=== PATIENT | male | born 1965 | race Caucasian/White ===

== ENCOUNTER → 2020-09-25 15:39 | Outpatient (BNVA) | payer OTHER, SELFPAY | PROVIDERS: PCP Internal Medicine; Referring Provider Internal Medicine; Visit Provider Internal Medicine | DX: E11.65 Type 2 diabetes mellitus with hyperglycemia (principal); Z79.4 Long term (current) use of insulin; E55.9 Vitamin D deficiency, unspecified; I10 Essential (primary) hypertension; E78.5 Hyperlipidemia, unspecified; Z79.899 Other long term (current) drug therapy | CPT/HCPCS: 99202 ==

== ENCOUNTER → 2020-09-25 15:39 | Outpatient (BNVA) | payer OTHER, SELFPAY | PROVIDERS: PCP Internal Medicine; Referring Provider Internal Medicine; Visit Provider Internal Medicine | DX: E11.65 Type 2 diabetes mellitus with hyperglycemia (principal); E55.9 Vitamin D deficiency, unspecified; I10 Essential (primary) hypertension; E78.5 Hyperlipidemia, unspecified; Z79.4 Long term (current) use of insulin; Z79.899 Other long term (current) drug therapy ==

== ENCOUNTER 2020-10-24 12:31 | Outpatient (REF) | payer OTHER, SELFPAY | END 2020-10-24 12:32 | disposition home or self-care (01) | LOC: HO.LAB 12:31 | PROVIDERS: Visit Provider Internal Medicine | DX: Z20.828 Contact with and (suspected) exposure to other viral communicable diseases (principal) | CPT/HCPCS: C9803; U0003 ==

== ENCOUNTER → 2020-11-17 13:59 | Outpatient (BNVA) | payer OTHER, SELFPAY | PROVIDERS: PCP Internal Medicine; Visit Provider Dietitian, Registered | DX: Z76.89 Persons encountering health services in other specified circumstances (principal) ==

== ENCOUNTER → 2020-12-22 11:50 | Outpatient (BNVA) | payer OTHER, SELFPAY | PROVIDERS: PCP Internal Medicine; Referring Provider Internal Medicine; Visit Provider Internal Medicine ==

== ENCOUNTER 2021-01-30 13:49 | Outpatient (REF) | payer OTHER, SELFPAY ==
--- NOTE | ~2021-01-30 | XR_ITS ---
EXAMINATION: XR KNEE, RIGHT XR KNEE, LEFT CLINICAL INFORMATION: Pain in both knees COMPARISON: None TECHNIQUE: 4 views of the right and left knees FINDINGS: Right Knee: Small joint effusion. Small marginal osteophytes about the medial compartment and patellofemoral compartment without joint space narrowing indicative of mild arthrosis. Lateral compartment normal. Prominent arterial calcification. Left Knee: Small marginal osteophytes about the patellofemoral compartment without joint space narrowing indicative of mild arthrosis. Medial and lateral compartments normal. No effusion. Prominent arterial calcification. XR/XR knee LT 4V IMPRESSION: Right Knee: Small joint effusion and mild osteoarthritis. Left Knee: Mild osteoarthritis. Calcific atherosclerotic disease bilaterally.
--- NOTE | ~2021-01-30 | XR_ITS ---
EXAMINATION: XR KNEE, RIGHT XR KNEE, LEFT CLINICAL INFORMATION: Pain in both knees COMPARISON: None TECHNIQUE: 4 views of the right and left knees FINDINGS: Right Knee: Small joint effusion. Small marginal osteophytes about the medial compartment and patellofemoral compartment without joint space narrowing indicative of mild arthrosis. Lateral compartment normal. Prominent arterial calcification. Left Knee: Small marginal osteophytes about the patellofemoral compartment without joint space narrowing indicative of mild arthrosis. Medial and lateral compartments normal. No effusion. Prominent arterial calcification. XR/XR knee RT 4V IMPRESSION: Right Knee: Small joint effusion and mild osteoarthritis. Left Knee: Mild osteoarthritis. Calcific atherosclerotic disease bilaterally.
== END 2021-01-30 13:50 | disposition home or self-care (01) ==
LOC: HO.XRAY 13:49
PROVIDERS: PCP Internal Medicine; Visit Provider Internal Medicine
DX: M25.561 Pain in right knee (principal); M25.562 Pain in left knee
CPT/HCPCS: 73564

== ENCOUNTER → 2021-02-19 13:37 | Outpatient (BNVA) | payer OTHER, SELFPAY | PROVIDERS: PCP Internal Medicine; Visit Provider Surgery Vascular Surgery | DX: I73.9 Peripheral vascular disease, unspecified (principal) | CPT/HCPCS: 99202 ==

== ENCOUNTER → 2021-03-20 12:09 | Outpatient (BNVA) | payer OTHER, SELFPAY | PROVIDERS: PCP Internal Medicine; Visit Provider Physician Assistant | DX: M17.0 Bilateral primary osteoarthritis of knee (principal) | CPT/HCPCS: 20610; 99202; J1020 ==

== ENCOUNTER 2021-08-25 14:32 | Emergency (ER) | payer OTHER, SELFPAY ==
[2021-08-25 15:29] VITALS: BP 109/67; PULSE 102; RESP 18; TEMP 36.8; O2SAT 98; BMI 22.8
== END 2021-08-25 20:14 | disposition left against medical advice (07) ==
PROVIDERS: Emergency Provider Emergency Medicine; PCP Internal Medicine
DX: K59.00 Constipation, unspecified (principal); R10.9 Unspecified abdominal pain; Z79.899 Other long term (current) drug therapy
CPT/HCPCS: 99281

== ENCOUNTER → 2021-08-26 14:47 | Outpatient (BNVA) | payer OTHER, SELFPAY | PROVIDERS: PCP Internal Medicine; Visit Provider Anesthesiology | DX: E11.65 Type 2 diabetes mellitus with hyperglycemia (principal); E11.42 Type 2 diabetes mellitus with diabetic polyneuropathy; G89.4 Chronic pain syndrome; Z79.4 Long term (current) use of insulin | CPT/HCPCS: 99202 ==

== ENCOUNTER → 2021-11-09 14:15 | Outpatient (BNVA) | payer OTHER, SELFPAY | PROVIDERS: PCP Internal Medicine; Visit Provider Anesthesiology | DX: E11.65 Type 2 diabetes mellitus with hyperglycemia (principal); E11.42 Type 2 diabetes mellitus with diabetic polyneuropathy; G89.4 Chronic pain syndrome; Z79.4 Long term (current) use of insulin | CPT/HCPCS: Q3014 ==

== ENCOUNTER 2023-01-31 03:33 | Inpatient (IN) | payer OTHER, SELFPAY ==
[2023-01-31] VITALS (20 sets, daily range): BP systolic 140–205; BP diastolic 68–108; PULSE 89–107; RESP 14–27; TEMP 36.3–37.4; O2SAT 93–100; BMI 25.3
--- NOTE | ~2023-01-31 | XR_ITS ---
EXAMINATION: XR CHEST CLINICAL INFORMATION: Question CHF COMPARISON: 07/10/2018 TECHNIQUE: Frontal view of the chest was obtained. FINDINGS: Cardiac leads overlie the chest. The lungs are well expanded. There is mild interstitial prominence with peribronchial cuffing. Carlos B-lines noted. No pleural effusion or pneumothorax. The cardiomediastinal silhouette is normal in size. XR/XR chest 1V IMPRESSION: Mild interstitial prominence with peribronchial cuffing and Carlos B-lines are suggestive of mild edema.
--- NOTE | ~2023-01-31 | CT_ITS ---
PROCEDURE: CT GUIDED BIOPSY, KIDNEY CLINICAL INFORMATION: Acute kidney injury. COMPARISON: None available. TECHNIQUE: Following explaining CT-guided kidney core biopsy procedure, benefits and risk, a written consent was obtained from the patient. Patient was placed prone on CT fluoroscopy table and preliminary CT imaging was obtained through the mid abdomen. Based on CT images the right kidney was to be biopsied. Markers were placed along the lower pole of the right kidney and repeat CT imaging was performed. An optimal marker was selected and marked on the skin. The area was cleaned and draped in usual sterile manner with 2% chlorhexidine solution. 1% lidocaine was injected at puncture site. Through a small incision an 18-gauge guide needle was advanced from the skin to the posterior cortex lower pole right kidney. Coaxially an 18-gauge biopsy gun was administered and 4-pass core biopsy were obtained. Sample collected was sent to lab for testing. Repeat CT imaging revealed no evidence of hemorrhage. Hemostasis was achieved at puncture site with pressure dressing applied. Patient tolerated procedure extremely well. Conscious sedation was administered for 15 minutes and patient monitored by radiologist and the IR nursing. This CT examination was performed using dose optimization techniques as appropriate, variously including the following: *Automated exposure control *Adjustment of mA and/or kV according to patient size (this includes techniques or standardized protocols for targeted exams where dose is matched to indication/reason for exam; i.e. extremities or head) *Use of iterative reconstruction technique DLP: 193 mGy-cm FINDINGS: On previous CT imaging of both kidneys are symmetrical and unremarkable. No radiopaque renal calculi seen on the visualized images. Successful CT fluoroscopy-guided right renal core biopsy was performed coaxially. CT/CT biopsy renal RT IMPRESSION: Successful CT fluoroscopy-guided right renal core biopsy performed.
--- NOTE | ~2023-01-31 | XR_ITS ---
EXAMINATION: XR CHEST CLINICAL INFORMATION: Tachycardia COMPARISON: 01/31/2023 TECHNIQUE: Frontal view of the chest was obtained. FINDINGS: Again seen is mild cardiomegaly increased interstitial markings. There is slight increased patchy density at the left base with new obscuration of the hemidiaphragm which may represent superimposed left consolidation. No large pleural effusions are seen. Again noted is an old healed right clavicular fracture healed right rib fractures. XR/XR chest 1V IMPRESSION: Mild cardiomegaly with increased interstitial markings suggestive of continued CHF with superimposed new left lower lobe infiltrate.
--- NOTE | ~2023-01-31 | NM_ITS ---
EXAMINATION: PULMONARY PERFUSION STUDY CLINICAL INFORMATION: Elevated d-dimer, question pulmonary embolism. COMPARISON: No previous lung scan is available for comparison. A radiograph of the chest dated 01/31/2023 is available for comparison. TECHNIQUE: Following the intravenous injection of 4 mCi Tc-99m MAA, the lungs were imaged in the anterior and posterior, left and right lateral and [place], [place], and [place] projections using a gamma scintillation camera. FINDINGS: No segmental perfusion defects are present. There is homogeneous distribution of activity bilaterally. There are no focal anatomic appearing perfusion defects present. NM/NM pul perfusion IMPRESSION: Normal radionuclide lung perfusion scan.
--- NOTE | 2023-01-31 03:50 | ED_ITS ---
HPI - General Adult General Chief complaint: General Medical Stated complaint: SWOLEN TESTICLES PER EMS Time Seen by Provider: 01/31/23 03:39 Source: patient and EMS Mode of arrival: EMS Limitations: no limitations History of Present Illness HPI narrative: Patient comes to the emergency room complaining of scrotal swelling. Patient states that he has chronic lower extremity edema, but tonight, when he woke up, he noticed that his scrotum was very swollen. Patient states that he does not have testicular pain, but the skin hurts from stretching so much. Patient denies chest pain or shortness of breath. Patient does not take any diuretic medications at home. Related Data Home Medications Medication Instructions Recorded Confirmed atorvastatin 80 mg tablet 80 mg PO DAILY 09/25/20 12/22/20 dulaglutide 1.5 mg/0.5 mL 1.5 mg subcut QWEEK 09/25/20 12/22/20 subcutaneous pen injector (Trulicity) lisinopril 20 mg tablet 20 mg PO DAILY 09/25/20 12/22/20 metformin 1,000 mg tablet 1,000 mg PO BID 09/25/20 12/22/20 pioglitazone 30 mg tablet 30 mg PO DAILY 09/25/20 12/22/20 insulin glargine 100 unit/mL (3 31 unit subcut QAM 12/22/20 12/22/20 mL) subcutaneous pen (Lantus Solostar U-100 Insulin) insulin lispro 100 unit/mL See Rx Instructions subcut TID 12/22/20 12/22/20 subcutaneous pen (Humalog KwikPen (U-100) Insulin) Previous Rx's Medication Instructions Recorded tamsulosin 0.4 mg capsule 0.4 mg PO BEDTIME #90 caps 09/18/20 pregabalin 75 mg capsule 75 mg PO BID 30 days #60 caps 11/09/21 Allergies Allergy/AdvReac Type Severity Reaction Status Date / Time No Known Allergies Allergy Verified 11/09/21 14:16 [No Known Allergies*] Review of Systems Review of Systems: Constitutional : No Weight loss, No Fever, No Chills, No Night Sweats, No Fatigue, No Malaise ENT/Mouth : No Hearing loss, No Ear Pain, No Nasal Congestion, No Sinus Pain, No Hoarseness, No sore throat, No Rhinorrhea, No Swallowing Difficulty Eyes: No Eye Pain, No Swelling, No Redness, No Foreign Body, No Discharge, No Vision Changes Cardiovascular : No Chest Pain, No SOB, No Dyspnea on Exertion, No Orthopnea, no Palpitations, complaining of worsening lower extremity edema and scrotal edema Respiratory : No Cough, No Sputum, No Wheezing, No Smoke Exposure, No Dyspnea Gastrointestinal : No Nausea, No Vomiting, No Diarrhea, No Constipation, No abdominal Pain, No Hematochezia, No Melena Genitourinary : no irregular bleeding, No Dysuria, No Urinary Frequency, No Hematuria, No Urinary Incontinence, No Urgency, No Flank Pain, No Urinary Flow Changes, No Hesitancy Musculoskeletal : No joint pain, No Myalgias, No Joint Swelling Skin : No Skin Lesions, No rash Neuro : No Weakness, No Numbness, No Paresthesias, No Loss of Consciousness, No Dizziness, No Headache Psych : No Anxiety/Panic, No Depression, No SI/HI/AH/VH, No Social Issues, Heme/Lymph: No Bruising, No Bleeding,No Lymphadenopathy Endocrine : No Polyuria, No Polydipsia, No Temperature Intolerance PMFSH Past Medical History Medical History Chronic pain syndrome Depression Diabetic polyneuropathy HLD (hyperlipidemia) HTN (hypertension) T2DM (type 2 diabetes mellitus) Vitamin D deficiency Surgical History Hx of colonoscopy Hx of rotator cuff surgery Family History Family History Father Colon cancer Mother History of kidney problems T2DM (type 2 diabetes mellitus) Sister T2DM (type 2 diabetes mellitus) Social History Social History (Updated 03/20/21 @ 12:32 by Lucy Maya, [facility]) Alcohol intake: never Smoked in Last 30 Days: No Use of substances other than those prescribed or required for medical reasons: No Advance Directives: No Advance Directives Information Provided: Yes Current occupational status: disabled Current occupation: right handed Physical Exam ED Vital Signs: Vital Signs - 24 hr 01/31/23 04:19 01/31/23 04:15 01/31/23 05:50 Temperature 98.3 F 98.3 F 98.3 F Pulse Rate 103 H 107 H 94 Respiratory Rate 25 H 24 H 19 Blood Pressure 193/93 H 205/102 H 192/100 H Pulse Oximetry 98 98 93 Oxygen Delivery Method Room Air Room Air Room Air BMI result Body Mass Index 25.3 Const Other: Appearance: Alert. Oriented X3. No acute distress. Eyes: Pupils equal, round and reactive to light. ENT: Pharynx normal. Neck: Normal inspection. Neck supple. No lymph nodes noted. No crepitus CVS: Normal heart rate and rhythm. Pulses normal. Normal S1 and S2 Respiratory: No respiratory distress. Breath sounds normal. No Wheezing. No rales : Edematous penis and scrotum, no pain to palpation in either testicle Abdomen: Soft and nontender. No rigidity. No distention. Skin: Skin warm and dry. Normal skin color. Normal skin turgor. Extremities: No lower extremity edema. No Lacerations. No Rash Neuro: Oriented X 3. No motor deficit. No sensory deficit. Moving all extremities. No slurred speech. CN 2 through 12 grossly intact Psych: calm, cooperative, normal affect Course Course Course Narrative: -patient likely has venous insufficiency. Basic labs pending. -no testicular pain, testicular torsion of suspected -patient also has +3 pitting edema in lower extremities. Patient being giving Lasix. -BNP and chest x-ray pending. Medications Administered Discontinued Medications Generic Name Dose Route Start Last Admin Trade Name Freq PRN Reason Stop Dose Admin Furosemide 40 mg 01/31/23 03:47 01/31/23 04:31 Furosemide 40 Mg/4 Ml Vial IVPUSH 01/31/23 03:48 Not Given ONCE ONE Protocol Furosemide 60 mg 01/31/23 04:30 01/31/23 04:33 Furosemide 100 Mg/10 Ml Vial IVPUSH 01/31/23 04:31 60 mg ONCE ONE Administration Protocol Labetalol HCl 10 mg 01/31/23 05:42 01/31/23 05:55 Labetalol Hcl 100 Mg/20 Ml Vial IVPUSH 01/31/23 05:43 10 mg ONCE ONE Administration Oxycodone HCl 5 mg 01/31/23 05:41 01/31/23 05:55 Oxycodone Hcl Immed Release 5 Mg Tablet PO 01/31/23 05:42 5 mg ONCE ONE Administration Medical Decision Making Medical Decision Making MDM Narrative: -patient has severe hypertension, large amount of protein in the urine, gera sarca, new onset anemia, low albumin. Patient likely has nephrotic syndrome. -patient's blood pressure 205/102, given 60 mg of Lasix, patient now also getting 10 mg of IV labetalol. -patient agreeable to blood transfusion. Patient signed a consent. Patient states that he has been fatigued and short of breath with exertion -patient agreeable to stay for further treatment. Patient can not walk due to scrotal pain. -patient was given 10 mg of IV labetalol, blood pressure now 160/79 systolic. P atient does not have any chest pain or shortness of breath. Differential Diagnosis Differential Diagnoses: The differential diagnosis associated with the presentation includes (Nephritis syndrome, hypertensive urgency, anasarca, anemia) Admission/Observation Consideration of admission/observation: Escalation of care including admission/observation considered Consult Healthcare Provider Management of the patient was discussed with: Hospitalist Lab Data MDM Lab Attestation statement: I reviewed the patient's lab results. 01/31/23 03:58 01/31/23 03:58 Labs: Lab Results 01/31/23 01/31/23 01/31/23 Range/Units 03:58 03:58 03:58 WBC 13.0 H (4.8-10.8) X10*3/uL RBC 3.23 L (4.60-5.80) X10*6/uL Hgb 7.3 L (14.0-18.0) g/dl Hct 23.6 L (42.0-52.0) % MCV 73.1 L (80.0-98.0) fL MCH 22.6 L (27.0-33.0) pg MCHC 30.9 L (31.0-36.0) g/dl RDW 18.3 H (11.0-16.0) % Plt Count 296 (160-400) X10*3/uL MPV 9.5 (9.4-12.4) fL Immature Gran % (Auto) 0.8 H (0.0-0.4) % Neut % (Auto) 76.8 H (45-73) % Lymph % (Auto) 16.2 L (20-40) % Addison % (Auto) 4.7 (2-11) % Eos % (Auto) 1.0 (0-4) % Baso % (Auto) 0.5 (0-2) % Lymph # (Auto) 2.1 (1.2-4.9) X10*3/uL Addison # (Auto) 0.6 (0.1-1.2) X10*3/uL Eos # (Auto) 0.1 (0.0-0.4) X10*3/uL Baso # (Auto) 0.1 (0.0-0.2) X10*3/uL Abs Immat Gran (auto) 0.10 H (0.00-0.03) X10*3/uL Absolute Neuts (auto) 10.0 H (2.0-8.3) x10*3/uL Absolute Nucleated RBC 0.000 (0.0-0.012) X10*3/uL Nucleated RBC % (auto) 0.0 (0.0-0.2) /100WBC Sodium 143 (135-145) mmol/L Potassium 3.5 (3.3-5.1) mmol/L Chloride 109 H (96-108) mmol/L Carbon Dioxide 28 (22-29) mmol/L Anion Gap 10 L (12-20) BUN 14 (9-16) mg/dL Creatinine 1.11 (0.5-1.4) mg/dL Estim Creat Clear Calc TNP Estimated GFR > 60 Random Glucose 117 H (60-115) mg/dL Calcium 7.2 L (8.4-10.2) mg/dL Total Bilirubin 0.2 (0.0-1.0) mg/dL Direct Bilirubin < 0.2 (0.0-0.5) mg/dL AST 17 (5-37) U/L ALT 9 (0-40) U/L Alkaline Phosphatase 95 (39-117) U/L Troponin I High Sens 17.5 (<3.5-35.0) ng/L B-Natriuretic Peptide (<100) pg/mL Total Protein 5.7 L (6.5-8.0) g/dL Albumin 1.9 L (3.5-5.0) g/dL Urine Color Urine Appearance Urine pH (5.0-9.0) Ur Specific [place] (1.005-1.025) Urine Protein (Neg-Trace) mg/dL Urine Glucose (UA) (Negative) mg/dL Urine Ketones (Negative) mg/dL Urine Blood (Negative) Urine Nitrite (Negative) Ur Leukocyte Esterase (Negative) Urine RBC (0-2) /HPF Urine WBC (0-5) /HPF Ur Squamous Epith Cells (0-2) /HPF Urine Bacteria (None Seen) Hyaline Casts (0-2) /LPF Stool Occult Blood (NEGATIVE) Blood Type Antibody Screen Crossmatch 01/31/23 01/31/23 01/31/23 Range/Units 03:58 04:42 04:42 WBC (4.8-10.8) X10*3/uL RBC (4.60-5.80) X10*6/uL Hgb (14.0-18.0) g/dl Hct (42.0-52.0) % MCV (80.0-98.0) fL MCH (27.0-33.0) pg MCHC (31.0-36.0) g/dl RDW (11.0-16.0) % Plt Count (160-400) X10*3/uL MPV (9.4-12.4) fL Immature Gran % (Auto) (0.0-0.4) % Neut % (Auto) (45-73) % Lymph % (Auto) (20-40) % Addison % (Auto) (2-11) % Eos % (Auto) (0-4) % Baso % (Auto) (0-2) % Lymph # (Auto) (1.2-4.9) X10*3/uL Addison # (Auto) (0.1-1.2) X10*3/uL Eos # (Auto) (0.0-0.4) X10*3/uL Baso # (Auto) (0.0-0.2) X10*3/uL Abs Immat Gran (auto) (0.00-0.03) X10*3/uL Absolute Neuts (auto) (2.0-8.3) x10*3/uL Absolute Nucleated RBC (0.0-0.012) X10*3/uL Nucleated RBC % (auto) (0.0-0.2) /100WBC Sodium (135-145) mmol/L Potassium (3.3-5.1) mmol/L Chloride (96-108) mmol/L Carbon Dioxide (22-29) mmol/L Anion Gap (12-20) BUN (9-16) mg/dL Creatinine (0.5-1.4) mg/dL Estim Creat Clear Calc Estimated GFR Random Glucose (60-115) mg/dL Calcium (8.4-10.2) mg/dL Total Bilirubin (0.0-1.0) mg/dL Direct Bilirubin (0.0-0.5) mg/dL AST (5-37) U/L ALT (0-40) U/L Alkaline Phosphatase (39-117) U/L Troponin I High Sens (<3.5-35.0) ng/L B-Natriuretic Peptide 429 H (<100) pg/mL Total Protein (6.5-8.0) g/dL Albumin (3.5-5.0) g/dL Urine Color Yellow Urine Appearance Clear Urine pH 7.5 (5.0-9.0) Ur Specific [place] 1.010 (1.005-1.025) Urine Protein >=1000 (4+) H (Neg-Trace) mg/dL Urine Glucose (UA) 250 H (Negative) mg/dL Urine Ketones Negative (Negative) mg/dL Urine Blood Moderate (2+) H (Negative) Urine Nitrite Negative (Negative) Ur Leukocyte Esterase Negative (Negative) Urine RBC 11-20 H (0-2) /HPF Urine WBC 0-5 (0-5) /HPF Ur Squamous Epith Cells 0-2 (0-2) /HPF Urine Bacteria None Seen (None Seen) Hyaline Casts 0-2 (0-2) /LPF Stool Occult Blood NEGATIVE (NEGATIVE) Blood Type Antibody Screen Crossmatch 01/31/23 Range/Units 05:04 WBC (4.8-10.8) X10*3/uL RBC (4.60-5.80) X10*6/uL Hgb (14.0-18.0) g/dl Hct (42.0-52.0) % MCV (80.0-98.0) fL MCH (27.0-33.0) pg MCHC (31.0-36.0) g/dl RDW (11.0-16.0) % Plt Count (160-400) X10*3/uL MPV (9.4-12.4) fL Immature Gran % (Auto) (0.0-0.4) % Neut % (Auto) (45-73) % Lymph % (Auto) (20-40) % Addison % (Auto) (2-11) % Eos % (Auto) (0-4) % Baso % (Auto) (0-2) % Lymph # (Auto) (1.2-4.9) X10*3/uL Addison # (Auto) (0.1-1.2) X10*3/uL Eos # (Auto) (0.0-0.4) X10*3/uL Baso # (Auto) (0.0-0.2) X10*3/uL Abs Immat Gran (auto) (0.00-0.03) X10*3/uL Absolute Neuts (auto) (2.0-8.3) x10*3/uL Absolute Nucleated RBC (0.0-0.012) X10*3/uL Nucleated RBC % (auto) (0.0-0.2) /100WBC Sodium (135-145) mmol/L Potassium (3.3-5.1) mmol/L Chloride (96-108) mmol/L Carbon Dioxide (22-29) mmol/L Anion Gap (12-20) BUN (9-16) mg/dL Creatinine (0.5-1.4) mg/dL Estim Creat Clear Calc Estimated GFR Random Glucose (60-115) mg/dL Calcium (8.4-10.2) mg/dL Total Bilirubin (0.0-1.0) mg/dL Direct Bilirubin (0.0-0.5) mg/dL AST (5-37) U/L ALT (0-40) U/L Alkaline Phosphatase (39-117) U/L Troponin I High Sens (<3.5-35.0) ng/L B-Natriuretic Peptide (<100) pg/mL Total Protein (6.5-8.0) g/dL Albumin (3.5-5.0) g/dL Urine Color Urine Appearance Urine pH (5.0-9.0) Ur Specific [place] (1.005-1.025) Urine Protein (Neg-Trace) mg/dL Urine Glucose (UA) (Negative) mg/dL Urine Ketones (Negative) mg/dL Urine Blood (Negative) Urine Nitrite (Negative) Ur Leukocyte Esterase (Negative) Urine RBC (0-2) /HPF Urine WBC (0-5) /HPF Ur Squamous Epith Cells (0-2) /HPF Urine Bacteria (None Seen) Hyaline Casts (0-2) /LPF Stool Occult Blood (NEGATIVE) Blood Type A Positive Antibody Screen NEGATIVE Crossmatch See Detail Critical Care Time Critical Care Time Critical Care Time: Yes Total Critical Care Time: 90 Attestation: I have personally provided critical care time. Time includes review of lab data, radiology results, discussion with consultants, and monitoring for potential decompensation. Intervention performed as documented. Discharge Plan Discharge Clinical Impression: Nephrotic syndrome, Hypertensive urgency, Anasarca, Anemia Patient Disposition: Admitted As Inpatient Prescriptions: No Action tamsulosin 0.4 mg capsule 0.4 mg PO BEDTIME Qty: 90 6RF metformin 1,000 mg tablet 1,000 mg PO BID pioglitazone 30 mg tablet 30 mg PO DAILY Trulicity 1.5 mg/0.5 mL pen injector 1.5 mg subcut QWEEK atorvastatin 80 mg tablet 80 mg PO DAILY lisinopril 20 mg tablet 20 mg PO DAILY Lantus Solostar U-100 Insulin 100 unit/mL (3 mL) insulin pen 31 unit subcut QAM insulin lispro [Humalog KwikPen Insulin] 100 unit/mL insulin pen See Rx Instructions subcut TID Rx Instructions: 13 Before meals subcut 3 times a day; pregabalin 75 mg capsule 75 mg PO BID 30 Days Qty: 60 5RF
--- NOTE | 2023-01-31 04:00 | PC.NURSE ---
pt c/o swollen painful testicles began today, states feeling burning sensation while voiding beginning 5 days ago, denies sexual activity, h/o htn, dmII, arthritis, med hx metformin, lisinopril pt resting quietly, while watchinf tv no apparent distress Dr Rouse aware of high BP furosemide to follow
[2023-01-31 04:13] LABS: Basophils Absolute Auto 0.1 X10*3/uL (0.0-0.2); Basophils Percent Auto 0.5 % (0-2); Eosinophils Absolute Auto 0.1 X10*3/uL (0.0-0.4); Hematocrit 23.6 % (42.0-52.0); Hemoglobin 7.3 g/dl (14.0-18.0); Imm Gran Pct Auto 0.8 % (0.0-0.4); Lymphocytes Absolute Auto 2.1 X10*3/uL (1.2-4.9); Lymphocytes Percent Auto 16.2 % (20-40); MANUAL DIFF FLAG NO; Mean Corpuscular HGB Conc 30.9 g/dl (31.0-36.0); Mean Corpuscular Hemoglobin 22.6 pg (27.0-33.0); Mean Corpuscular Volume 73.1 fL (80.0-98.0); Mean Platelet Volume 9.5 fL (9.4-12.4); Monocytes Absolute Auto 0.6 X10*3/uL (0.1-1.2); Monocytes Percent Auto 4.7 % (2-11); Neutrophils Percent Auto 76.8 % (45-73); Platelet Count 296 X10*3/uL (160-400); Red Blood Count 3.23 X10*6/uL (4.60-5.80); Red Cell Distribution Width 18.3 % (11.0-16.0)
--- NOTE | 2023-01-31 04:20 | PC.NURSE ---
present for rectal exam performed by Dr Rouse for OB card
[2023-01-31] MEDS: Furosemide 100 MG/10 ML VIAL 60 MG IVPUSH (04:33)
[2023-01-31 04:36] LABS: B Type Natriuretic Peptide 429 pg/mL (<100); Troponin-I High Sensitivity 17.5 ng/L (<3.5-35.0)
[2023-01-31 04:39] LABS: Alanine Aminotransferase 9 U/L (0-40); Albumin Level 1.9 g/dL (3.5-5.0); Alkaline Phosphatase 95 U/L (39-117); Anion Gap 10 (12-20); Aspartate Amino Transferase 17 U/L (5-37); Bilirubin Direct < 0.2 mg/dL (0.0-0.5); Bilirubin Total 0.2 mg/dL (0.0-1.0); Blood Urea Nitrogen 14 mg/dL (9-16); Calcium 7.2 mg/dL (8.4-10.2); Carbon Dioxide 28 mmol/L (22-29); Chloride 109 mmol/L (96-108); Estimated Glomerular Filt Rate > 60; Glucose Random 117 mg/dL (60-115); Potassium 3.5 mmol/L (3.3-5.1); Sodium 143 mmol/L (135-145); Total Protein 5.7 g/dL (6.5-8.0)
--- OUTSIDE RECORDS SUMMARY | 2023-01-31 04:46 | XMS_ITS | Continuity of Care Document ---
:1965 Author Organization [facility] Address [address] [place] [address]- Care Team Providers Name Role Phone Cecille York DO Primary Care Physician Encounter [facility] [place] Date(s): 09/30/21 - 10/30/[address] [id number] Attending Physician: Gordo Maria Admitting Physician: Gordo Maria Referring Physician: AdmtrGordo Allergies, Adverse Reactions, Alerts Substance Reaction Severity Status NKA Active Medications Actos 45 mg oral tablet 1 tablet = 45 mg, By Mouth, Daily, 0 Refills, Maintenance Start Date: 09/29/11 Status: OrderedAspir 81 Oral Enteric Coated Tablet 1 tablet = 81 mg, By Mouth, Daily, # 30 tablet, 0 Refills, Maintenance, 05/21/14 15:38:51, EC Tablet Start Date: 05/21/14 Status: Orderedclonazepam 2 mg oral tablet 1 tablet = 2 mg, By Mouth, 2 times a day, 0 Refills, Maintenance, 05/21/14 15:38:35, Tablet Start Date: 05/21/14 Status: OrderedColace sodium 100 mg oral capsule 1 capsule = 100 mg, By Mouth, 2 times a day, PRN for constipation, # 20 capsule, 0 Refills, Maintenance, 05/24/14 14:47:47, Capsule Start Date: 05/24/14 Status: Orderedgabapentin 100 mg oral capsule 2 capsule = 200 mg, By Mouth, 3 times a day, # 240 capsule, 0 Refills, Maintenance, 05/24/14 14:47:33, Capsule Start Date: 05/24/14 Status: Orderedibuprofen 600 mg oral tablet 1 tablet = 600 mg, By Mouth, 3 times a day, # 90 tablet, 0 Refills, Maintenance, 05/24/14 14:47:14 Start Date: 05/24/14 Status: Orderedmetformin 1000 mg oral tablet 1 tablet = 1,000 mg, By Mouth, 2 times a day, 0 Refills, Maintenance Start Date: 09/29/11 Status: Ordered
--- OUTSIDE RECORDS SUMMARY | 2023-01-31 04:46 | XMS_ITS | Continuity of Care Document ---
:1965 Author Organization [facility] Address [address] [place] [address]- Care Team Providers Name Role Phone Cecille York DO Primary Care Physician Encounter [place] Date(s): 06/24/22 - 10/13/22 [facility] [address] [place] [id number] Attending Physician: Tika Dickson MD Admitting Physician: Tika Dickson MD Referring Physician: Cecille York DO Allergies, Adverse Reactions, Alerts No Known Allergies Medications Actos 45 mg oral tablet 1 [...] 05/24/14 14:47:47, Capsule Start Date: 05/24/14 Status: OrderedFreestyle Lite Test Strips See Instructions, # 200 each, Tot. Refills 5, Maintenance, use as directed for Type 2 Diabetes Mellitus, 06/08/22 14:45:00 EDT, Supply, 160, cm, 06/08/22 14:02:00 EDT, Height Start Date: 06/08/22 Stop Date: 07/08/22 Status: Orderedgabapentin 100 mg oral capsule 2 capsule = 200 mg, By Mouth, 3 times a day, # 240 capsule, 0 Refills, Maintenance, 05/24/14 14:47:33, Capsule Start Date: 05/24/14 Status: Orderedibuprofen 600 mg oral tablet 1 tablet = 600 mg, By Mouth, 3 times a day, # 90 tablet, 0 Refills, Maintenance, 05/24/14 14:47:14 Start Date: 05/24/14 Status: OrderedLantus 100 u/ml subcutaneous solution = 50 units, Subcutaneous Injection, Daily, # 35 mL, 6 Refills, Maintenance, 06/08/22 14:45:00 EDT, Solution, [id number], Partial fill upon patient request if the prescription is for a schedule II opioid drug., 160, cm, 06/08/22 14:02:00 EDT, H... Start Date: 06/08/22 Status: Orderedmetformin 1000 mg oral tablet 1 tablet = 1,000 mg, By Mouth, 2 times a day, 0 Refills, Maintenance Start Date: 09/29/11 Status: OrderedNovoLOG FlexPen 100 units/mL subcutaneous solution See Instructions, Subcutaneous Injection, Use as directed for Diabetes mellitus type 2 three time a day before meals based on below scale. Blood sugar Novolog dose 100-149 take 10 units 150-199 take 12units 200-249 take 14 units... Start Date: 06/08/22 Stop Date: 02/28/24 Status: OrderedTrulicity Pen 3 mg/0.5 mL subcutaneous solution 0.5 mL = 3 mg, Subcutaneous Injection, Every week, rotate injection sites, # 2 mL, 6 Refills, Maintenance, 06/08/22 14:45:00 EDT, Solution, [id number], Partial fill upon patient request if the prescription is for a schedule II opioid drug., 16... Start Date: 06/08/22 Status: Ordered Patient Care team information Care Team PersonnelName: Cecille York DO Position: ELISHA RN Member Role: PCP Address: Address: [address] [place] [id number] Name: Janel Ochoa RN Position: ELISHA RN Member Role: Primary Care Nurse Care Team Related PersonsName: BERNARDO AVENDANO Address: home [address] [address] Name: MAYRA ALCALA Address: home [address] [place] [address]
--- OUTSIDE RECORDS SUMMARY | 2023-01-31 04:46 | XMS_ITS | Continuity of Care Document ---
:1965 Author Organization [facility] Address [address] [place] [address]- Care Team Providers Name Role Phone Cecille York DO Primary Care Phys[id number] Date[facility] - 07/15/[address] [id number] Attending Physician: Tika Dickson MD Admitting Physician: [...] drug., 16... Start Date: 06/08/22 Status: Ordered Care Team PersonnelName: Cecille York DO Address: [address] [place] [address], [address]
--- OUTSIDE RECORDS SUMMARY | 2023-01-31 04:47 | XMS_ITS | Continuity of Care Document ---
:1965 Author Organization [facility] Address [address] [place] [address]- Care Team Providers Name Role Phone Cecille York DO Primary Care Physician [place] [facility] [place](s): 06/15/22 - 07/15/[address] [id number] Attending Physician: Gordo Maria Admitting Physician: Gordo Maria Referring Physician: AdmtrGordo Allergies, Adverse Reactions, Alerts No Known Allergies [...] 6 Refills, Maintenance, 06/08/22 14:45:00 EDT, Solution, [id number], Partial fill upon patient request if [...] Care Team PersonnelName: Cecille York DO Address: [address] [place] [address], [address]
--- OUTSIDE RECORDS SUMMARY | 2023-01-31 04:47 | XMS_ITS | Continuity of Care Document ---
:1965 Author Organization [facility] Address [address] [place] [address]- Care Team Providers Name Role Phone Cecille York DO Primary Care Physician Encounter [facility] [place] Date(s): 09/13/22 - 10/13/22 [facility] [address] [place] [id number] Attending Physician: Gordo Maria Admitting Physician: Gordo [...] ELISHA RN Member Role: PCP Address: Address: [address] [place] [id number]- Name: Janel Ochoa RN Position: ELISHA RN Member Role: Primary Care Nurse Care Team Related PersonsName: BERNARDO AVENDANO Address: home [address] [address] Name: MAYRA ALCALA Address: home [address] [address]
[2023-01-31 04:49] LABS: OBS Int Ctl Valid YES; OBS1 NEGATIVE (NEGATIVE)
[2023-01-31 04:51] LABS: Appearance Urine Clear; Color Urine Yellow; Glucose Urine UA 250 mg/dL (Negative); Leukocyte Esterase Urine Negative (Negative); Nitrite Urine Negative (Negative); PH 7.5 (5.0-9.0); UMIC TRIGGER UACC YES; Urine Blood Moderate (2+) (Negative); Urine Ketones Negative (Negative); Urine Protein >=1000 (4+) mg/dL (Neg-Trace)
[2023-01-31 05:04] LABS: Bacteria Urine None Seen (None Seen); Hyaline Casts Urine 0-2 /LPF (0-2); Squamous Epithelial Cell Urine 0-2 /HPF (0-2); WBC Urine 0-5 /HPF (0-5)
[2023-01-31] MEDS: Labetalol HCL 100 MG/20 ML VIAL 10 MG IVPUSH ×2 (05:55→12:44)
[2023-01-31] MEDS: oxyCODONE HCl Immed Release 5 MG TABLET PO (05:55)
[2023-01-31 07:09] LABS: COVID-19 Test Negative (Negative); IDNOW Serial# 6674DD1D
[2023-01-31 08:04] LABS: Glucose, Whole Blood 96 mg/dL (60-115)
--- NOTE | 2023-01-31 11:02 | PM.IMHP ---
History of Present Illness Date of Service: 01/31/23 <Kenisha Crenshaw NP - Last Filed: 02/01/23 11:37> Attending physician on admission: Sherron Gomez <Kenisha Crenshaw NP - Last Filed: 02/01/23 11:37> Chief Complaint: Anasarca <Kenisha Crenshaw NP - Last Filed: 02/01/23 11:37> 57 year old man presenting with testicular and extremity swelling that started yesterday. He denied pain, fever, chills, SOB, chest pain, open wound or trauma. He reports that he wasnt able to sleep last night. 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 He lives alone but has some help at home. He reported compliance with all medications and is not on diuretics at home. His blood pressure was noted to be elevated and no fever, noted leukocytosis of 13.0, HH 7.3/23.6. CXR noted for interstitial prominence and Carlos B lines. He receieved IV lasix, oxycodone, Labetolol and amlodipine in the ED. He will be admitted for further management and treatment of anasarca. <Kenisha Crenshaw NP - Last Filed: 02/01/23 11:37> Review of Systems Review of Systems: Denies any recent fever chills or decrease in appetite respiratory denies any shortness of breath coverage production cardiovascular he denied chest pain, reported swelling gastrointestinal denies any dysphagia abdominal pain nausea vomiting or diarrhea genitourinary denies any dysuria frequency or hematuria musculoskeletal denies any joint pain or swelling neuropsych denies any weakness or seizures all other systems reviewed are negative <Kenisha Crenshaw NP - Last Filed: 02/01/23 11:37> [facility] Medical History: Medical History Chronic pain syndrome Depression Diabetic polyneuropathy HLD (hyperlipidemia) HTN (hypertension) T2DM (type 2 diabetes mellitus) Vitamin D deficiency <Kenisha Crenshaw NP - Last Filed: 02/01/23 11:37> Family History: Family History Father Colon cancer Mother History of kidney problems T2DM (type 2 diabetes mellitus) Sister T2DM (type 2 diabetes mellitus) <Kenisha Crenshaw NP - Last Filed: 02/01/23 11:37> Surgical History: Surgical History Hx of colonoscopy Hx of rotator cuff surgery <Kenisha Crenshaw NP - Last Filed: 02/01/23 11:37> Social History: Social History (Updated 03/20/21 @ 12:32 by Lucy Maya [facility]) Alcohol intake: never Patient Tobacco Use Status: Never used Tobacco Smoked in Last 30 Days: No Use of substances other than those prescribed or required for medical reasons: No Advance Directives: No Advance Directives Information Provided: Yes service: No Current occupational status: disabled Current occupation: right handed <Kenisha Crenshaw NP - Last Filed: 02/01/23 11:37> Meds Allergies/Adverse reactions: Allergies Allergy/AdvReac Type Severity Reaction Status Date / Time No Known Allergies Allergy Verified 11/09/21 14:16 [No Known Allergies*] <Kenisha Crenshaw NP - Last Filed: 02/01/23 11:37> Active Medications: Current Medications Pharmacy Consult (Consult Rx Perform Med Rec) 1 each MISCELLANE ONCE PRN PRN Reason: Consult order <Kenisha Crenshaw NP - Last Filed: 02/01/23 11:37> Home medications: Home Medications Medication Instructions Recorded Confirmed Last Taken Type dulaglutide 1.5 mg/0.5 mL 1.5 mg subcut WE@0900 09/25/20 01/31/23 01/26/23 History subcutaneous pen injector (Trulicity) metformin 1,000 mg tablet 1,000 mg PO BID 09/25/20 01/31/23 01/30/23 History insulin glargine 100 unit/mL (3 31 unit subcut DAILY 12/22/20 01/31/23 01/30/23 History mL) subcutaneous pen (Lantus Solostar U-100 Insulin) insulin lispro 100 unit/mL 12 unit subcut TIDAC 12/22/20 01/31/23 01/30/23 History subcutaneous pen (Humalog KwikPen (U-100) Insulin) benztropine 0.5 mg tablet 0.5 mg PO DAILY 01/31/23 01/31/23 01/30/23 History gabapentin 800 mg tablet 800 mg PO BID 01/31/23 01/31/23 01/30/23 History ketorolac 0.5 % eye drops 1 drp ophthalmic (eye) TID 01/31/23 01/31/23 Unknown History prednisolone acetate 1 % eye 1 drp ophthalmic (eye) TID 01/31/23 01/31/23 Unknown History drops,suspension ramelteon 8 mg tablet 8 mg PO BEDTIME PRN Sleep 01/31/23 01/31/23 Unknown History ziprasidone HCl 60 mg capsule 60 mg PO BID 01/31/23 01/31/23 01/30/23 History <Kenisha Crenshaw NP - Last Filed: 02/01/23 11:37> Physical Exam Vital Signs and Narrative: Vital Signs: Last Vital Signs Temp 98.5 F 01/31/23 09:40 Pulse 90 01/31/23 09:40 Resp 23 H 01/31/23 09:40 BP 193/108 H 01/31/23 09:40 Pulse Ox 94 01/31/23 09:40 O2 Del Method 01/31/23 09:40 BMI result Body Mass Index 25.3 <Kenisha Crenshaw NP - Last Filed: 02/01/23 11:37> Appearing in no acute distress head is normocephalic atraumatic eyes pupils are PERRLA sclera is anicteric mouth throat mucous membranes are intact and moist neck is supple no lymphadenopathy, no JVD noted lung sounds are clear to auscultation heart regular rate rhythm, clear S1, S2 positive bowel sounds, abdomen is soft, nontender neuro patient is alert x3, no focal deficits <Kenisha Crenshaw NP - Last Filed: 02/01/23 11:37> Results Labs CBC and Chem 7: 01/31/23 03:58 01/31/23 03:58 <Kenisha Crenshaw NP - Last Filed: 02/01/23 11:37> Labs: Laboratory Results - last 24 hr 01/31/23 01/31/23 01/31/23 03:58 03:58 03:58 MCV 73.1 L MCH 22.6 L MCHC 30.9 L RDW 18.3 H Plt Count 296 MPV 9.5 Immature Gran % (Auto) 0.8 H Neut % (Auto) 76.8 H Lymph % (Auto) 16.2 L [place] % (Auto) 4.7 Eos % (Auto) 1.0 Baso % (Auto) 0.5 Lymph # (Auto) 2.1 [place] # (Auto) 0.6 Eos # (Auto) 0.1 Baso # (Auto) 0.1 Abs Immat Gran (auto) 0.10 H Absolute Neuts (auto) 10.0 H Absolute Nucleated RBC 0.000 Nucleated RBC % (auto) 0.0 Anion Gap 10 L Estim Creat Clear Calc TNP Estimated GFR > 60 POC Glucose Random Glucose 117 H Calcium 7.2 L Total Bilirubin 0.2 Direct Bilirubin < 0.2 AST 17 ALT 9 Alkaline Phosphatase 95 Troponin I High Sens 17.5 B-Natriuretic Peptide Total Protein 5.7 L Albumin 1.9 L Urine Color Urine Appearance Urine pH Ur Specific [place] Urine Protein Urine Glucose (UA) Urine Ketones Urine Blood Urine Nitrite Ur Leukocyte Esterase Urine RBC Urine WBC Ur Squamous Epith Cells Urine Bacteria Hyaline Casts Stool Occult Blood COVID-19 (JJ) COVID-19 Bookmate Com Blood Type Antibody Screen Crossmatch 01/31/23 01/31/23 01/31/23 03:58 04:42 04:42 MCV MCH MCHC RDW Plt Count MPV Immature Gran % (Auto) Neut % (Auto) Lymph % (Auto) [place] % (Auto) Eos % (Auto) Baso % (Auto) Lymph # (Auto) [place] # (Auto) Eos # (Auto) Baso # (Auto) Abs Immat Gran (auto) Absolute Neuts (auto) Absolute Nucleated RBC Nucleated RBC % (auto) Anion Gap Estim Creat Clear Calc Estimated GFR POC Glucose Random Glucose Calcium Total Bilirubin Direct Bilirubin AST ALT Alkaline Phosphatase Troponin I High Sens B-Natriuretic Peptide 429 H Total Protein Albumin Urine Color Yellow Urine Appearance Clear Urine pH 7.5 Ur Specific [place] 1.010 Urine Protein >=1000 (4+) H Urine Glucose (UA) 250 H Urine Ketones Negative Urine Blood Moderate (2+) H Urine Nitrite Negative Ur Leukocyte Esterase Negative Urine RBC 11-20 H Urine WBC 0-5 Ur Squamous Epith Cells 0-2 Urine Bacteria None Seen Hyaline Casts 0-2 Stool Occult Blood NEGATIVE COVID-19 (JJ) COVID-19 Bookmate Com Blood Type Antibody Screen Crossmatch 01/31/23 01/31/23 01/31/23 05:04 06:48 08:01 MCV MCH MCHC RDW Plt Count MPV Immature Gran % (Auto) Neut % (Auto) Lymph % (Auto) [place] % (Auto) Eos % (Auto) Baso % (Auto) Lymph # (Auto) [place] # (Auto) Eos # (Auto) Baso # (Auto) Abs Immat Gran (auto) Absolute Neuts (auto) Absolute Nucleated RBC Nucleated RBC % (auto) Anion Gap Estim Creat Clear Calc Estimated GFR POC Glucose 96 Random Glucose Calcium Total Bilirubin Direct Bilirubin AST ALT Alkaline Phosphatase Troponin I High Sens B-Natriuretic Peptide Total Protein Albumin Urine Color Urine Appearance Urine pH Ur Specific [place] Urine Protein Urine Glucose (UA) Urine Ketones Urine Blood Urine Nitrite Ur Leukocyte Esterase Urine RBC Urine WBC Ur Squamous Epith Cells Urine Bacteria Hyaline Casts Stool Occult Blood COVID-19 (JJ) Negative COVID-19 Clin Com See Note Blood Type A Positive Antibody Screen NEGATIVE Crossmatch See Detail <Kenisha Crenshaw NP - Last Filed: 02/01/23 11:37> Assessment and Plan (1) Nephrotic syndrome: Status: Acute <Kenisha Crenshaw NP - Last Filed: 02/01/23 11:37> (2) Anasarca: Status: Acute <Kenisha Crenshaw NP - Last Filed: 02/01/23 11:37> 57 year old man admitted for anasarca likely from CHF and nephrotic syndrome CHF with anasarca, unspecified ? nephrotic syndrome, high urine protein, albumin 1.9, edema Lasix IV BID Nephro consult follow I&O closely ada and low na diet, ensure added echocardiogram Hypertension with elevated blood pressure reading amlodipine 5mg daily labetolol as needed for SBP >180 Anemia, unspecified type one unit PRBC lasix in between if needed follow HH post transfusion Diabetes type 2 ss, lantus, ada diet Diabetic neuropathy gabapentin PAD not on asa or statin moderate protein calorie malnutrition added ensure to diet DVT prophylaxis with heparin Attending Dr. Gomez full code Needs two inpatient midnights for tx of CHF requiring IV lasix <Kenisha Crenshaw NP - Last Filed: 02/01/23 11:37> 57 year old man admitted for anasarca likely from CHF and nephrotic syndrome CHF with anasarca, unspecified ? nephrotic syndrome, high urine protein, albumin 1.9, edema Lasix IV BID Nephro consult follow I&O closely ada and low na diet, ensure added echocardiogram Hypertension with elevated blood pressure reading amlodipine 5mg daily labetolol as needed for SBP >180 Anemia, unspecified type one unit PRBC lasix in between if needed follow HH post transfusion Diabetes type 2 ss, lantus, ada diet Diabetic neuropathy gabapentin PAD not on asa or statin moderate protein calorie malnutrition added ensure to diet DVT prophylaxis with heparin Attending Dr. Gomez full code Needs two inpatient midnights for tx of CHF requiring IV lasix Addendum to history and physical by the advanced practice provider, ANTONIO Crenshaw I interviewed and examined the patient. I discussed their presentation and management with the MARNI. I reviewed the history and physical and agree with the documentation, with the following additions and corrections: 57yo M with HTN, DM2, PAD presenting with diffuse swelling. Found to be anasarcic with hypoalbuminemia and proteinuria. Impression of nephrotic syndrome vs. CHF. Plan admit to [facility]MC, give IV furosemide, consult Nephrology, obtain TTE. ALso markedly anemic with Hb 7.3, FOBT negative, microcytic. Will transfuse 1u pRBCs and will need Fe repletion. <Sherron Gomez MD - Last Filed: 02/01/23 07:57> Time Spent With Patient Time: Total time managing care of this patient today ____ minutes. <Kenisha Crenshaw NP - Last Filed: 02/01/23 11:37> Quality Stroke Does the patient have a stroke diagnosis?: No <Sherron Gomez MD - Last Filed: 02/01/23 07:57> VTE Prior VTE?: No <Sherron Gomez MD - Last Filed: 02/01/23 07:57> VTE Risk Level:: Medical - moderate - high <Sherron Gomez MD - Last Filed: 02/01/23 07:57> VTE Device Contraindication: N/A - Device Ordered <Sherron Gomez MD - Last Filed: 02/01/23 07:57> VTE Drug Contraindication: N/A - Med Ordered <Sherron Gomez MD - Last Filed: 02/01/23 07:57>
[2023-01-31] MEDS: amLODIPine Besylate 5 MG TABLET PO (11:09)
[2023-01-31 11:31] LABS: Glucose, Whole Blood 161 mg/dL (60-115)
[2023-01-31] MEDS: Insulin Lispro 100 UNIT/ML 3 ML VIAL SUBCUT ×3 (12:04→21:41)
--- NOTE | 2023-01-31 12:04 | PHA.MEDREC ---
Pharmacy Consult ? Medication Reconciliation Pharmacy has completed the medication reconciliation. [employer] Assistant services used, pt does understand Kiswahili. Poor historian, able to confirm gabapentin and metformin, agreeable to most other meds. Confirmed lantus dose as 31 units and 12 units TIDAC for short acting insulin. Used claim history and pt info
[2023-01-31] MEDS: Heparin Sodium,Porcine 5,000 UNIT/ML VIAL 5000 UNIT SUBCUT ×2 (12:05→21:42)
[2023-01-31 15:50] LABS: Glucose, Whole Blood 215 mg/dL (60-115)
--- NOTE | 2023-01-31 15:54 | MHC.CM.PN ---
CM met with Patient at bedside and addressed IMM with him, providing him with the original and placing a copy on the chart. Patient lives alone in an apartment and he uses both a cane and a w/c to assist with mobility. Patient has a [employer] and home/resume said services is the goal. Patient has received Covid vax x3 and his PCP is Dr. Allison Ruelas/[facility].
[2023-01-31 17:14] LABS: D Dimer High Sensitivity 6180 NG/ML
[2023-01-31] MEDS: prednisoLONE Acetate 1 % Oph Susp 5 ML DRPBTL 1 DROP EYE-BOTH (17:32)
[2023-01-31] MEDS: Ketorolac Tromethamine 0.5% Op 5 ML DROPS 1 DROP EYE-BOTH (17:32)
[2023-01-31] MEDS: Furosemide 20 MG TABLET PO (19:36)
[2023-01-31 20:12] LABS: Glucose, Whole Blood 181 mg/dL (60-115)
[2023-01-31 20:23] LABS: Hematocrit 28.6 % (42.0-52.0); Hemoglobin 9.2 g/dl (14.0-18.0)
[2023-01-31 21:32] LABS: Cholesterol 253 mg/dL; HDL Cholesterol 66 mg/dL; LDL Cholesterol Calculated 163 mg/dl; Triglycerides 124 mg/dL
[2023-01-31] MEDS: LORazepam 0.5 MG TABLET 0.25 MG PO (21:40)
[2023-01-31] MEDS: Ziprasidone 60 MG CAPSULE PO (21:41)
[2023-01-31] MEDS: Gabapentin 400 MG CAPSULE 800 MG PO (21:41)
[2023-01-31 22:09] LABS: Hematocrit 32.3 % (42.0-52.0)
[2023-02-01 03:17] VITALS: BP 162/79; PULSE 100; RESP 20; TEMP 36.9; O2SAT 96
--- NOTE | 2023-02-01 07:00 | CA_ITS ---
Transthoracic Echocardiogram Patient (Last, First, Middle): Yao Rivera, Gender: Male Date of : 1965 Age: 57 Procedure Date: 02/01/2023 Procedure Type: Transthoracic Echocardiogram Location: [facility] Height: 160.02 cm Weight: 64.86 kg BSA: 1.68 m2 Heart Rate: 86 bpm BP: 169 / 85 mmHg [employer]inator [employer]: SB Referring MD: Kenisha Crenshaw NP Symptoms: CHF vs nephrotic syndrome Study Quality: Adequate ECG Rhythm: Sinus Conclusions: - Normal left ventricular cavity size. There is mildly increased left ventricular wall thickness. The left ventricular systolic function is low normal. The visually estimated ejection fraction is between 50-55%. - Elevated filling pressures. - Normal right ventricular cavity size and systolic function. - The left atrium is severely dilated. There is an interatrial septal aneurysm seen. The right atrium is normal in size. Findings Left Ventricle Normal left ventricular cavity size. There is mildly increased left ventricular wall thickness. The left ventricular systolic function is low normal. The visually estimated ejection fraction is between 50-55%. Abnormal diastolic function is noted. Spectral Doppler is indicative of a pseudonormal filling pattern. Elevated filling pressures. GLS reduced at 13%. Right Ventricle Normal right ventricular cavity size and systolic function. Atria The left atrium is severely dilated. There is an interatrial septal aneurysm seen. The right atrium is normal in size. Aortic Valve Normal aortic valve structure and function. There is mild calcification of the aortic valve. There is no aortic valve stenosis. There is no aortic valve regurgitation. Mitral Valve Normal mitral valve structure and function. There is no mitral valve regurgitation. There is no mitral valve stenosis. Pulmonic Valve Normal pulmonic valve structure and function. There is no pulmonic valve regurgitation. Tricuspid Valve Normal tricuspid valve structure and function. There is trace tricuspid valve regurgitation. Normal right atrial pressure. There is no evidence of pulmonary hypertension. Great Vessels All visible segments of the aorta are normal in size. The visualized portions of the pulmonary artery and branches are normal. Venous The inferior vena cava is normal in size and collapses greater than 50% with inspiration. Pericardium/Pleural Prominent epicardial adipose tissue noted. There is a trivial pericardial effusion. Measurements 2D Linear Measurements IVSd: 1.29 0.6-0.9/0.6-1.0 cm LVIDd: 3.88 3.9-5.3/4.2-5.9 cm LVIDd Index: 2.31 2.4-3.2/2.2-3.1 cm/m2 LVIDs: 2.63 2.0-3.6 cm LVPWd: 1.28 0.7-1.1 cm LA Diam: 4.10 2.7-3.8/3.0-4.0 cm LAIDs Index: 2.44 1.5-2.3 cm/m2 LV Mass: 218.32 67-162/88-224 g LV Mass Index: 129.95 43-95/49-115 g/m2 LVOT Diam: 2.30 3.0+(-)1.3 cm 2D Systolic Function EF 4C: 50.40 >55% EF 2C: 56.60 >55% EF BiP: 52.50 >55% Mitral Valve MV Pk E: 1.12 MV PK A: 0.66 MV Decel Time: 167.00 E/A: 1.70 E'Lateral: 6.74 E'Medial: 5.98 E/E' Med: 18.70 E/E' Lat: 16.60 PHT: 49.00 MVA PHT: 4.49 Decel [place]: 6.71 Aortic Valve AoV Pk [place]ato: 1.49 AoV Pk Grad: 9.00 MESSI: 2.79 LVOT LVOT Pk [place]ato: 0.97 LVOT Mn [place]: 0.72 LVOT VTI: 0.20 LVOT Pk Grad: 4.00 LVOT Mn Grad: 2.00 LVOT Diam: 2.30 LVOT Area: 4.15 Diastolic Function MV Pk E: 1.12 MV Pk A: 0.66 E/A: 1.70 E'Medial: 5.98 E/E' Med: 18.70 E' Laterial: 6.74 E/E' Lat: 16.60 Right Ventricle TAPSE (mm): 20.40 TVS' Nato: 16.30 Tricuspid Valve TR Pk [place]ato: 2.35 TR Pk Grad: 22.00 RA Press: 8.00 RVSP: 30.00 Great Vessels Aorta Sinus of Valsalva: 2.80 2.0-3.5 cm Ao Asc: 2.80 2.1-3.4 cm Pulmonary Veins Pulm Vein S/D 1.50 Pulmonary Valve PV Pk Nato: 1.05 Peak PV Grad: 4.00 Updated in Other Vendor System with Status of Final Rahat Connors MD electronically signed on 02/01/2023 5:26:41 PM with status of Final
[2023-02-01 07:19] VITALS: BP 169/85; PULSE 87; RESP 20; TEMP 36.9; O2SAT 97
[2023-02-01 07:26] LABS: Alanine Aminotransferase 9 U/L (0-40); Albumin Level 1.6 g/dL (3.5-5.0); Alkaline Phosphatase 74 U/L (39-117); Anion Gap 10 (12-20); Aspartate Amino Transferase 17 U/L (5-37); Bilirubin Total 0.4 mg/dL (0.0-1.0); Blood Urea Nitrogen 21 mg/dL (9-16); Carbon Dioxide 25 mmol/L (22-29); Chloride 109 mmol/L (96-108); Creatinine Clr Calc Pharmacy 42.7; Estimated Glomerular Filt Rate 46; Glucose Random 239 mg/dL (60-115); Potassium 3.6 mmol/L (3.3-5.1); Sodium 140 mmol/L (135-145); Total Protein 4.9 g/dL (6.5-8.0)
[2023-02-01 07:48] LABS: Glucose, Whole Blood 227 mg/dL (60-115)
--- NOTE | 2023-02-01 08:04 | HO.PM.IMPN ---
Subjective Subjective Date of Service: 02/01/23 Review of Systems Follow up nury sleepy today Denies pain, nausea or vomiting Physical Exam Vital Signs: Vital Signs: Last Vital Signs Temp 98.4 F 02/01/23 07:19 Pulse 87 02/01/23 07:19 Resp 20 02/01/23 07:19 BP 169/85 H 02/01/23 07:19 Pulse Ox 97 02/01/23 07:19 O2 Del Method 02/01/23 07:19 O2 Flow Rate 1 02/01/23 07:19 BMI result Body Mass Index 25.3 Appearing in no acute distress lung sounds are clear to auscultation heart regular rate rhythm, clear S1, S2, +3 LE edema bilaterally positive bowel sounds, abdomen is soft, nontender neuro patient is alert x3, no focal deficits Objective Data Active Medications Acetaminophen (Acetaminophen 325 Mg Tablet) 650 mg PO Q6H PRN PRN Reason: Pain, Mild (Pain Scale 1-3) Amlodipine Besylate (Amlodipine Besylate 5 Mg Tablet) 5 mg PO DAILY [facility]; Protocol Benztropine Mesylate (Benztropine Mesylate 0.5 Mg Tablet) 0.5 mg PO DAILY [facility] Furosemide (Furosemide 20 Mg Tablet) 20 mg PO BID@0900,1800 [facility]; Protocol Last Admin: 01/31/23 19:36 Dose: 20 mg Documented By: LINA Gabapentin (Gabapentin 400 Mg Capsule) 800 mg PO BID [facility] Last Admin: 01/31/23 21:41 Dose: 800 mg Documented By: KARINA Glucose (Glucose Gel 15 Gm Gel..Gram.) 15 gm PO Q15M PRN; Protocol PRN Reason: per Hypoglycemia Standing Ord. Heparin Sodium (Porcine) (Heparin Sodium,Porcine 5,000 Unit/Ml Vial) 5,000 unit SUBCUT Q12H [facility] Last Admin: 01/31/23 21:42 Dose: 5,000 unit Documented By: KARINA Dextrose (D10) 250 mls @ 750 mls/hr IV Q15M PRN; Protocol PRN Reason: per Hypoglycemia Standing Ord. Insulin Glargine (Insulin Glargine,Hum.Rec.Anlog 100 Unit/Ml 10 Ml Vial) 31 unit SUBCUT DAILY [facility] Insulin Human Lispro (Insulin Lispro 100 Unit/Ml 3 Ml Vial) 0 unit SUBCUT QIDACHS [facility]; Protocol Last Admin: 01/31/23 21:41 Dose: 2 unit Documented By: KARINA Comments: Ketorolac Tromethamine (Ketorolac Tromethamine 0.5% Op 5 Ml Drops) 1 drop EYE-BOTH TID [facility] Last Admin: 01/31/23 21:42 Dose: Not Given Documented By: KARINA Non-Admin Reason: Med Not Available Labetalol HCl (Labetalol Hcl 100 Mg/20 Ml Vial) 10 mg IVPUSH Q4H PRN PRN Reason: SBP>180 Lorazepam (Lorazepam 0.5 Mg Tablet) 0.25 mg PO Q6H PRN PRN Reason: anxiety Last Admin: 01/31/23 21:40 Dose: 0.25 mg Documented By: KARINA Non-Formulary Medication (Dulaglutide [Trulicity]) 1.5 mg SUBCUT WE@0900 [facility] Non-Formulary Medication (Ramelteon) 8 mg PO BEDTIME PRN PRN Reason: Sleep Ondansetron HCl (Ondansetron Hcl 4 Mg/2 Ml Vial) 4 mg IVPUSH Q8H PRN PRN Reason: Nausea and Vomiting Pharmacy Consult (Consult Rx Perform Med Rec) 1 each MISCELLANE ONCE PRN PRN Reason: Consult order Prednisolone Acetate (Prednisolone Acetate 1 % Oph Susp 5 Ml Drpbtl) 1 drop EYE-BOTH TID [facility] Last Admin: 01/31/23 21:42 Dose: Not Given Documented By: KARINA Non-Admin Reason: Med Not Available Sodium Chloride (0.9 % Sodium Chloride Flush 3 Ml Syringe) 3 ml IVFLUSH QSHIFT [facility] Last Admin: 02/01/23 07:44 Dose: Not Given Documented By: BROJonathan Non-Admin Reason: IV Running Ziprasidone (Ziprasidone 60 Mg Capsule) 60 mg PO BID [facility] Last Admin: 01/31/23 21:41 Dose: 60 mg Documented By: KARINA Labs 01/31/23 22:04 02/01/23 06:10 Labs: Laboratory Results - last 24 hr 01/31/23 01/31/23 01/31/23 05:04 08:01 11:27 D-Dimer High Sensitivty Anion Gap Estim Creat Clear Calc Estimated GFR POC Glucose 96 161 H Random Glucose Calcium Total Bilirubin AST ALT Alkaline Phosphatase Total Protein Albumin Triglycerides Cholesterol LDL Cholesterol, Calc HDL Cholesterol Blood Type A Positive Antibody Screen NEGATIVE Crossmatch See Detail 01/31/23 01/31/23 01/31/23 15:43 15:46 15:57 D-Dimer High Sensitivty 6180 Anion Gap Estim Creat Clear Calc Estimated GFR POC Glucose 215 H Random Glucose Calcium Total Bilirubin AST ALT Alkaline Phosphatase Total Protein Albumin Triglycerides 124 Cholesterol 253 LDL Cholesterol, Calc 163 HDL Cholesterol 66 Blood Type Antibody Screen Crossmatch 01/31/23 02/01/23 02/01/23 19:54 06:10 07:20 D-Dimer High Sensitivty Anion Gap 10 L Estim Creat Clear Calc 42.7 Estimated GFR 46 POC Glucose 181 H 227 H Random Glucose 239 H Calcium 7.0 L Total Bilirubin 0.4 AST 17 ALT 9 Alkaline Phosphatase 74 Total Protein 4.9 L Albumin 1.6 L Triglycerides Cholesterol LDL Cholesterol, Calc HDL Cholesterol Blood Type Antibody Screen Crossmatch Assessment and Plan (1) Nephrotic syndrome: Status: Acute Plan 57 year old man admitted for anasarca likely from CHF and nephrotic syndrome CHF with anasarca, proteinurea, unspecified nephrotic syndrome, high urine protein, albumin 1.9, edema Lasix IV BID Nephro consult follow I&O closely ada and low na diet, ensure added echocardiogram ordered Renal biopsy ordered Elevated ddimer VQ scan neg for PE Hypertension with elevated blood pressure reading. Trending down amlodipine 5mg daily labetolol as needed for SBP >180 Anemia, unspecified type s/p one unit PRBC lasix in between if needed? follow HH post transfusion Diabetes type 2 ss, lantus, ada diet Diabetic neuropathy gabapentin PAD not on asa or statin ? moderate protein calorie malnutrition added ensure to diet DVT prophylaxis with heparin Attending Dr. Gomez full code continued hospital stay for tx of CHF requiring IV lasix? Time Spent With Patient Time: Total time managing care of this patient today ____ minutes. Quality Stroke Does the patient have a stroke diagnosis?: No VTE Prior VTE?: No VTE Risk Level:: Medical - moderate - high VTE Device Contraindication: N/A - Device Ordered VTE Drug Contraindication: N/A - Med Ordered
[2023-02-01] MEDS: Ketorolac Tromethamine 0.5% Op 5 ML DROPS 1 DROP EYE-BOTH (08:31)
[2023-02-01] MEDS: Insulin Glargine,Hum.rec.anlog 100 UNIT/ML 10 ML VIAL 31 UNIT SUBCUT (08:31)
[2023-02-01] MEDS: prednisoLONE Acetate 1 % Oph Susp 5 ML DRPBTL 1 DROP EYE-BOTH (08:31)
[2023-02-01] MEDS: Benztropine Mesylate 0.5 MG TABLET PO (08:32)
[2023-02-01] MEDS: amLODIPine Besylate 5 MG TABLET PO (08:32)
[2023-02-01] MEDS: Gabapentin 400 MG CAPSULE 800 MG PO (08:32)
[2023-02-01] MEDS: Ziprasidone 60 MG CAPSULE PO (08:32)
[2023-02-01] MEDS: Furosemide 20 MG TABLET PO (08:32)
[2023-02-01] MEDS: Insulin Lispro 100 UNIT/ML 3 ML VIAL SUBCUT ×3 (08:32→21:19)
[2023-02-01] MEDS: 0.9 % Sodium Chloride Flush 3 ML SYRINGE IVFLUSH ×2 (08:33→18:41)
--- NOTE | 2023-02-01 10:29 | MHC.CLN ---
NUTRITION PER PROVIDER, ALBUMIN=1.9 AND ADDED ENSURE TID. PATIENT WITH DX DM, TAKES INSULIN. CHANGING SUPPLEMENT TO ENSURE MAX BID WHICH PROVIDES FEWER GRAMS CARBOHYDRATE. PROVIDES ADDITIONAL 300 KCALS, 60 G PROTEIN.
[2023-02-01 11:09] VITALS: BP 158/78; PULSE 95; RESP 20; TEMP 36.4; O2SAT 94
[2023-02-01 11:42] LABS: Glucose, Whole Blood 199 mg/dL (60-115)
[2023-02-01] MEDS: Heparin Sodium,Porcine 5,000 UNIT/ML VIAL 5000 UNIT SUBCUT (12:32)
[2023-02-01 13:07] LABS: Amphetamine Screen Urine Not Detected (Not Detect); Barbiturates, Urine Not Detected (Not Detect); Benzodiazepines Screen Urine Not Detected (Not Detect); Cannabinoid Screen Urine Not Detected (Not Detect); Cocaine Screen Urine POSITIVE (Not Detect); Fentanyl, urine Not Detected (Not Detect); Opiate Screen Urine Not Detected (Not Detect); Phencyclidine Screen Urine Not Detected (Not Detect)
[2023-02-01 15:51] VITALS: BP 140/72; PULSE 79; RESP 14; TEMP 36.1; O2SAT 97
--- NOTE | 2023-02-01 16:04 | PM.CNNEP ---
History of Present Illness Reason for Consult Consult date: 02/01/23 Chief Complaint Chief complaint: anasarca History of Present Illness Narrative: 57 year old man presenting with testicular and extremity swelling that has been getting worse. He denied pain, fever, chills, SOB, chest pain,? open wound or trauma. He lives alone but has some help at home. He reported compliance with all medications and is not on diuretics at home. His blood pressure was noted to be elevated and no fever, noted leukocytosis of 13.0, HH 7.3/23.6. CXR noted for interstitial prominence and Carlos B lines. He received IV lasix, oxycodone, Labetolol and amlodipine in the ED. He will be admitted for further management and treatment of anasarca. Review of Systems Review of Systems Yes all other systems are reviewed and are negative PMF Past Medical History Medical History Chronic pain syndrome Depression Diabetic polyneuropathy HLD (hyperlipidemia) HTN (hypertension) T2DM (type 2 diabetes mellitus) Vitamin D deficiency Family History Family History Father Colon cancer Mother History of kidney problems T2DM (type 2 diabetes mellitus) Sister T2DM (type 2 diabetes mellitus) Surgical History Surgical History Hx of colonoscopy Hx of rotator cuff surgery Social History Social History (Updated 03/20/21 @ 12:32 by Lucy Maya, [facility]) Alcohol intake: never Patient Tobacco Use Status: Never used Tobacco Smoked in Last 30 Days: No Use of substances other than those prescribed or required for medical reasons: No Currently Displaying Signs/Symptoms of Drug Intoxication Withdrawal: No Advance Directives: No Advance Directives Information Provided: Yes service: No Current occupational status: disabled Current occupation: right handed Meds Allergies Allergy/AdvReac Type Severity Reaction Status Date / Time No Known Allergies Allergy Verified 11/09/21 14:16 [No Known Allergies*] Active Medications: Current Medications Acetaminophen (Acetaminophen 325 Mg Tablet) 650 mg PO Q6H PRN PRN Reason: Pain, Mild (Pain Scale 1-3) Amlodipine Besylate (Amlodipine Besylate 5 Mg Tablet) 5 mg PO DAILY [facility]; Protocol Last Admin: 02/01/23 08:32 Dose: 5 mg Benztropine Mesylate (Benztropine Mesylate 0.5 Mg Tablet) 0.5 mg PO DAILY [facility] Last Admin: 02/01/23 08:32 Dose: 0.5 mg Furosemide (Furosemide 20 Mg Tablet) 20 mg PO BID@0900,1800 [facility]; Protocol Last Admin: 02/01/23 08:32 Dose: 20 mg Gabapentin (Gabapentin 400 Mg Capsule) 800 mg PO BID [facility] Last Admin: 02/01/23 08:32 Dose: 800 mg Glucose (Glucose Gel 15 Gm Gel..Gram.) 15 gm PO Q15M PRN; Protocol PRN Reason: per Hypoglycemia Standing Ord. Heparin Sodium (Porcine) (Heparin Sodium,Porcine 5,000 Unit/Ml Vial) 5,000 unit SUBCUT Q12H [facility] Last Admin: 02/01/23 12:32 Dose: 5,000 unit Dextrose (D10) 250 mls @ 750 mls/hr IV Q15M PRN; Protocol PRN Reason: per Hypoglycemia Standing Ord. Insulin Glargine (Insulin Glargine,Hum.Rec.Anlog 100 Unit/Ml 10 Ml Vial) 31 unit SUBCUT DAILY [facility] Last Admin: 02/01/23 08:31 Dose: 31 unit Insulin Human Lispro (Insulin Lispro 100 Unit/Ml 3 Ml Vial) 0 unit SUBCUT QIDACHS [facility]; Protocol Last Admin: 02/01/23 12:32 Dose: 2 unit Ketorolac Tromethamine (Ketorolac Tromethamine 0.5% Op 5 Ml Drops) 1 drop EYE-BOTH TID [facility] Last Admin: 02/01/23 08:31 Dose: 1 drop Labetalol HCl (Labetalol Hcl 100 Mg/20 Ml Vial) 10 mg IVPUSH Q4H PRN PRN Reason: SBP>180 Lorazepam (Lorazepam 0.5 Mg Tablet) 0.25 mg PO Q6H PRN PRN Reason: anxiety Last Admin: 01/31/23 21:40 Dose: 0.25 mg Non-Formulary Medication (Dulaglutide [Trulicity]) 1.5 mg SUBCUT WE@0900 [facility] Non-Formulary Medication (Ramelteon) 8 mg PO BEDTIME PRN PRN Reason: Sleep Ondansetron HCl (Ondansetron Hcl 4 Mg/2 Ml Vial) 4 mg IVPUSH Q8H PRN PRN Reason: Nausea and Vomiting Pharmacy Consult (Consult Rx Perform Med Rec) 1 each MISCELLANE ONCE PRN PRN Reason: Consult order Prednisolone Acetate (Prednisolone Acetate 1 % Oph Susp 5 Ml Drpbtl) 1 drop EYE-BOTH TID [facility] Last Admin: 02/01/23 08:31 Dose: 1 drop Sodium Chloride (0.9 % Sodium Chloride Flush 3 Ml Syringe) 3 ml IVFLUSH QSHIFT [facility] Last Admin: 02/01/23 08:33 Dose: 3 ml Ziprasidone (Ziprasidone 60 Mg Capsule) 60 mg PO BID [facility] Last Admin: 02/01/23 08:32 Dose: 60 mg Home Medications Medication Instructions Recorded Confirmed Last Taken Type dulaglutide 1.5 mg/0.5 mL 1.5 mg subcut WE@0900 09/25/20 01/31/23 01/26/23 History subcutaneous pen injector (Trulicity) metformin 1,000 mg tablet 1,000 mg PO BID 09/25/20 01/31/23 01/30/23 History insulin glargine 100 unit/mL (3 31 unit subcut DAILY 12/22/20 01/31/23 01/30/23 History mL) subcutaneous pen (Lantus Solostar U-100 Insulin) insulin lispro 100 unit/mL 12 unit subcut TIDAC 12/22/20 01/31/23 01/30/23 History subcutaneous pen (Humalog KwikPen (U-100) Insulin) benztropine 0.5 mg tablet 0.5 mg PO DAILY 01/31/23 01/31/23 01/30/23 History gabapentin 800 mg tablet 800 mg PO BID 01/31/23 01/31/23 01/30/23 History ketorolac 0.5 % eye drops 1 drp ophthalmic (eye) TID 01/31/23 01/31/23 Unknown History prednisolone acetate 1 % eye 1 drp ophthalmic (eye) TID 01/31/23 01/31/23 Unknown History drops,suspension ramelteon 8 mg tablet 8 mg PO BEDTIME PRN Sleep 01/31/23 01/31/23 Unknown History ziprasidone HCl 60 mg capsule 60 mg PO BID 01/31/23 01/31/23 01/30/23 History Physical Exam Vital Signs: Last Vital Signs Temp 96.9 F 02/01/23 15:51 Pulse 79 02/01/23 15:51 Resp 18 02/01/23 15:51 BP 140/72 H 02/01/23 15:51 Pulse Ox 97 02/01/23 15:51 O2 Del Method 02/01/23 15:51 O2 Flow Rate 1 02/01/23 15:51 BMI result Body Mass Index 25.3 Const General: no acute distress Eyes EOM: EOMs intact bilaterally Neck Neck: Yes supple Resp Auscultation: diminished lung sounds Cardio Rate: regular rate GI Palpation (GI): Soft to palpation Neuro General: moves all extremities Results Lab Results 01/31/23 22:04 02/01/23 06:10 Lab results: Chemistry 01/31/23 02/01/23 03:58 06:10 Sodium 143 140 Potassium 3.5 3.6 Carbon Dioxide 28 25 BUN 14 21 H Creatinine 1.11 1.57 H Calcium 7.2 L 7.0 L Hematology 01/31/23 01/31/23 01/31/23 03:58 20:11 22:04 WBC 13.0 H Hgb 7.3 L 9.2 L D 10.0 L Plt Count 296 Urinalysis 01/31/23 04:42 Urine Color Yellow Urine Appearance Clear Urine pH 7.5 Ur Specific Nora 1.010 Urine Protein >=1000 (4+) H Urine Glucose (UA) 250 H Urine Ketones Negative Urine Blood Moderate (2+) H Urine Nitrite Negative Ur Leukocyte Esterase Negative Urine RBC 11-20 H Urine WBC 0-5 Ur Squamous Epith Cells 0-2 Hyaline Casts 0-2 Assessment and Plan (1) Nephrotic syndrome: Status: Acute Plan Has Anasarca DDx- ? Diabetic nephropathy vs DM + alternate pathology Lipid panel ordered; No ASA Renal biopsy; Could increase lasix to 40 mg bid Labs AM. Shall closely F/U Time Spent With Patient Time: Total time managing care of this patient today ____ minutes. Procedures Date of Service Date of Service: 02/01/23
[2023-02-01 16:19] LABS: Glucose, Whole Blood 113 mg/dL (60-115)
[2023-02-01 17:56] LABS: VBG Base Excess 4.2 mmol/L; VBG HCO3 28 mmol/L (22-26); VBG pCO2 41 mmHg; VBG pH 7.44 (7.32-7.43); VBG pO2 47 mmHg
[2023-02-01 17:57] LABS: Venous Blood Gas Refer to POC result
[2023-02-01] MEDS: Albumin Human 25 % 100 ML IV (18:36)
[2023-02-01] MEDS: Furosemide 40 MG TABLET PO (18:45)
[2023-02-01 20:00] VITALS: BP 152/77; PULSE 87; RESP 20; TEMP 36.9; O2SAT 99
[2023-02-01 20:57] LABS: Glucose, Whole Blood 314 mg/dL (60-115)
[2023-02-02] VITALS (10 sets, daily range): BP systolic 141–191; BP diastolic 64–85; PULSE 96–117; RESP 17–28; TEMP 37.1–37.9; O2SAT 91–97
[2023-02-02] MEDS: Albumin Human 25 % 100 ML IV ×3 (01:04→14:21)
[2023-02-02] MEDS: 0.9 % Sodium Chloride Flush 3 ML SYRINGE IVFLUSH ×4 (01:05→23:44)
[2023-02-02 05:54] LABS: MANUAL DIFF FLAG NO
[2023-02-02 06:04] LABS: INTERNATIONAL NORM RATIO 1.1 (0.9-1.1); Prothrombin Time 12.3 SEC (10.0-13.1)
[2023-02-02 06:19] LABS: Cholesterol 203 mg/dL; HDL Cholesterol 48 mg/dL; LDL Cholesterol Calculated 139 mg/dl; Triglycerides 83 mg/dL
[2023-02-02 06:25] LABS: Basophils Absolute Auto 0.1 X10*3/uL (0.0-0.2); Basophils Percent Auto 0.4 % (0-2); Eosinophils Absolute Auto 0.2 X10*3/uL (0.0-0.4); Eosinophils Percent Auto 1.1 % (0-4); Hematocrit 26.6 % (42.0-52.0); Hemoglobin 8.2 g/dl (14.0-18.0); Imm Gran Abs Auto 0.08 X10*3/uL (0.00-0.03); Imm Gran Pct Auto 0.5 % (0.0-0.4); Lymphocytes Percent Auto 12.6 % (20-40); Mean Corpuscular HGB Conc 30.8 g/dl (31.0-36.0); Mean Corpuscular Hemoglobin 23.6 pg (27.0-33.0); Mean Corpuscular Volume 76.4 fL (80.0-98.0); Monocytes Absolute Auto 0.8 X10*3/uL (0.1-1.2); Neutrophils Absolute Auto 12.9 x10*3/uL (2.0-8.3); Neutrophils Percent Auto 80.4 % (45-73); Platelet Count 296 X10*3/uL (160-400); Red Blood Count 3.48 X10*6/uL (4.60-5.80); Red Cell Distribution Width 18.7 % (11.0-16.0)
[2023-02-02 06:40] LABS: Anion Gap 11 (12-20); Blood Urea Nitrogen 22 mg/dL (9-16); Calcium 7.5 mg/dL (8.4-10.2); Carbon Dioxide 27 mmol/L (22-29); Chloride 107 mmol/L (96-108); Creatinine Clr Calc Pharmacy 56.9; Estimated Glomerular Filt Rate > 60; Glucose Random 78 mg/dL (60-115); Sodium 142 mmol/L (135-145)
[2023-02-02] MEDS: Labetalol HCL 100 MG/20 ML VIAL 10 MG IVPUSH (07:43)
[2023-02-02] MEDS: Dextrose 10 % 250 ML 750 ML IV (07:48)
[2023-02-02 07:53] LABS: Glucose, Whole Blood 62 mg/dL (60-115)
[2023-02-02 08:16] LABS: Albumin Level 2.4 g/dL (3.5-5.0); Iron 17 mcg/dL (45-160); Magnesium 1.8 mg/dL (1.6-2.6); Percent Iron Saturation 13 % (15-50); Total Iron Binding Capacity 133 mcg/dL (228-428); Unsaturated Iron Binding 116 ug/dL
[2023-02-02] MEDS: Furosemide 40 MG TABLET PO (08:30)
[2023-02-02] MEDS: Potassium Chloride Packet 20 MEQ PACKET 40 MEQ PO (08:30)
[2023-02-02] MEDS: amLODIPine Besylate 5 MG TABLET PO (08:30)
[2023-02-02] MEDS: prednisoLONE Acetate 1 % Oph Susp 5 ML DRPBTL 1 DROP EYE-BOTH ×3 (08:34→20:02)
[2023-02-02] MEDS: Ketorolac Tromethamine 0.5% Op 5 ML DROPS 1 DROP EYE-BOTH ×3 (08:34→20:02)
[2023-02-02 08:47] LABS: Glucose, Whole Blood 117 mg/dL (60-115)
--- NOTE | 2023-02-02 09:54 | P.PNIM_ITS ---
Subjective Subjective Date of Service: 02/02/23 Review of Systems Follow up nury more awake today Denies pain, nausea or vomiting Physical Exam Vital Signs: Vital Signs: Last Vital Signs Temp 99.0 F 02/02/23 07:32 Pulse 117 H 02/02/23 07:32 Resp 20 02/02/23 07:32 BP 174/64 H 02/02/23 08:44 Pulse Ox 94 02/02/23 07:32 O2 Del Method 02/02/23 07:32 O2 Flow Rate 1 02/02/23 07:32 BMI result Body Mass Index 25.3 Appearing in no acute distress lung sounds are clear to auscultation heart regular rate rhythm, clear S1, S2, +2-3 LE edema, scrotal edema positive bowel sounds, abdomen is soft, nontender neuro patient is alert x3, no focal deficits Objective Data Active Medications Acetaminophen (Acetaminophen 325 Mg Tablet) 650 mg PO Q6H PRN PRN Reason: Pain, Mild (Pain Scale 1-3) Amlodipine Besylate (Amlodipine Besylate 5 Mg Tablet) 5 mg PO DAILY [facility]; Protocol Last Admin: 02/02/23 08:30 Dose: 5 mg Documented By: JUAN FRANCISCO Furosemide (Furosemide 40 Mg Tablet) 40 mg PO BID@0900,1800 [facility]; Protocol Last Admin: 02/02/23 08:30 Dose: 40 mg Documented By: JUAN FRANCISCO Glucose (Glucose Gel 15 Gm Gel..Gram.) 15 gm PO Q15M PRN; Protocol PRN Reason: per Hypoglycemia Standing Ord. Heparin Sodium (Porcine) (Heparin Sodium,Porcine 5,000 Unit/Ml Vial) 5,000 unit SUBCUT Q12H [facility] Last Admin: 02/01/23 12:32 Dose: 5,000 unit Documented By: LINA Dextrose (D10) 250 mls @ 750 mls/hr IV Q15M PRN; Protocol PRN Reason: per Hypoglycemia Standing Ord. Last Infusion: 02/02/23 08:10 Dose: 0 mls/hr Documented By: BLANCA Albumin Human (Kedbumin 25 %) 100 mls @ 100 mls/hr IV Q6H [facility] Stop: 02/02/23 11:59 Last Infusion: 02/02/23 07:32 Dose: 0 mls/hr Documented By: BLANCA Insulin Glargine (Insulin Glargine,Hum.Rec.Anlog 100 Unit/Ml 10 Ml Vial) 31 unit SUBCUT DAILY [facility] Last Admin: 02/02/23 08:18 Dose: Not Given Documented By: BLANCA Non-Admin Reason: BGL 62 this AM, hold per Javy Crenshaw APRN Insulin Human Lispro (Insulin Lispro 100 Unit/Ml 3 Ml Vial) 0 unit SUBCUT QIDACHS [facility]; Protocol Last Admin: 02/02/23 07:37 Dose: Not Given Documented By: BLANCA Non-Admin Reason: No Insulin Coverage Ketorolac Tromethamine (Ketorolac Tromethamine 0.5% Op 5 Ml Drops) 1 drop EYE- BOTH TID [facility] Last Admin: 02/02/23 08:34 Dose: 1 drop Documented By: JUAN FRANCISCO Labetalol HCl (Labetalol Hcl 100 Mg/20 Ml Vial) 10 mg IVPUSH Q4H PRN PRN Reason: SBP>180 Last Admin: 02/02/23 07:43 Dose: 10 mg Documented By: KARINA Non-Formulary Medication (Dulaglutide [Trulicity]) 1.5 mg SUBCUT WE@0900 [facility] Non-Formulary Medication (Ramelteon) 8 mg PO BEDTIME PRN PRN Reason: Sleep Ondansetron HCl (Ondansetron Hcl 4 Mg/2 Ml Vial) 4 mg IVPUSH Q8H PRN PRN Reason: Nausea and Vomiting Pharmacy Consult (Consult Rx Perform Med Rec) 1 each MISCELLANE ONCE PRN PRN Reason: Consult order Prednisolone Acetate (Prednisolone Acetate 1 % Oph Susp 5 Ml Drpbtl) 1 drop EYE-BOTH TID [facility] Last Admin: 02/02/23 08:34 Dose: 1 drop Documented By: JUAN FRANCISCO Sodium Chloride (0.9 % Sodium Chloride Flush 3 Ml Syringe) 3 ml IVFLUSH QSHIFT [facility] Last Admin: 02/02/23 08:30 Dose: 3 ml Documented By: JUAN FRANCISCO Labs 02/02/23 05:31 02/02/23 05:31 Labs: Laboratory Results - last 24 hr 02/01/23 02/01/23 02/01/23 11:13 12:30 16:03 MCV MCH MCHC RDW Plt Count MPV Immature Gran % (Auto) Neut % (Auto) Lymph % (Auto) [place] % (Auto) Eos % (Auto) Baso % (Auto) Lymph # (Auto) [place] # (Auto) Eos # (Auto) Baso # (Auto) Abs Immat Gran (auto) Absolute Neuts (auto) Absolute Nucleated RBC Nucleated RBC % (auto) PT INR VBG pH VBG pCO2 VBG pO2 VBG HCO3 VBG O2 Saturation VBG Base Excess Anion Gap Estim Creat Clear Calc Estimated GFR POC Glucose 199 H 113 Random Glucose Calcium Magnesium Iron TIBC % Saturation Unsat Iron Binding Albumin Triglycerides Cholesterol LDL Cholesterol, Calc HDL Cholesterol Urine Opiates Screen Not Detected Urine Fentanyl Screen Not Detected Ur Barbiturates Screen Not Detected Ur Phencyclidine Scrn Not Detected Ur Amphetamines Screen Not Detected U Benzodiazepines Scrn Not Detected Urine Cocaine Screen POSITIVE H U Marijuana (THC) Screen Not Detected 02/01/23 02/01/23 02/02/23 17:50 20:39 05:31 MCV MCH MCHC RDW Plt Count MPV Immature Gran % (Auto) Neut % (Auto) Lymph % (Auto) [place] % (Auto) Eos % (Auto) Baso % (Auto) Lymph # (Auto) [place] # (Auto) Eos # (Auto) Baso # (Auto) Abs Immat Gran (auto) Absolute Neuts (auto) Absolute Nucleated RBC Nucleated RBC % (auto) PT 12.3 INR 1.1 VBG pH 7.44 H VBG pCO2 41 VBG pO2 47 VBG HCO3 28 H VBG O2 Saturation 76.0 VBG Base Excess 4.2 Anion Gap Estim Creat Clear Calc Estimated GFR POC Glucose 314 H Random Glucose Calcium Magnesium Iron TIBC % Saturation Unsat Iron Binding Albumin Triglycerides Cholesterol LDL Cholesterol, Calc HDL Cholesterol Urine Opiates Screen Urine Fentanyl Screen Ur Barbiturates Screen Ur Phencyclidine Scrn Ur Amphetamines Screen U Benzodiazepines Scrn Urine Cocaine Screen U Marijuana (THC) Screen 02/02/23 02/02/23 02/02/23 05:31 05:31 05:31 MCV 76.4 L MCH 23.6 L MCHC 30.8 L RDW 18.7 H Plt Count 296 MPV 10.0 Immature Gran % (Auto) 0.5 H Neut % (Auto) 80.4 H Lymph % (Auto) 12.6 L [place] % (Auto) 5.0 Eos % (Auto) 1.1 Baso % (Auto) 0.4 Lymph # (Auto) 2.0 [place] # (Auto) 0.8 Eos # (Auto) 0.2 Baso # (Auto) 0.1 Abs Immat Gran (auto) 0.08 H Absolute Neuts (auto) 12.9 H Absolute Nucleated RBC 0.000 Nucleated RBC % (auto) 0.0 PT INR VBG pH VBG pCO2 VBG pO2 VBG HCO3 VBG O2 Saturation VBG Base Excess Anion Gap 11 L Estim Creat Clear Calc 56.9 Estimated GFR > 60 POC Glucose Random Glucose 78 Calcium 7.5 L D Magnesium 1.8 Iron 17 L TIBC 133 L % Saturation 13 L Unsat Iron Binding 116 Albumin 2.4 L Triglycerides 83 Cholesterol 203 LDL Cholesterol, Calc 139 HDL Cholesterol 48 Urine Opiates Screen Urine Fentanyl Screen Ur Barbiturates Screen Ur Phencyclidine Scrn Ur Amphetamines Screen U Benzodiazepines Scrn Urine Cocaine Screen U Marijuana (THC) Screen 02/02/23 02/02/23 07:29 08:41 MCV MCH MCHC RDW Plt Count MPV Immature Gran % (Auto) Neut % (Auto) Lymph % (Auto) [place] % (Auto) Eos % (Auto) Baso % (Auto) Lymph # (Auto) [place] # (Auto) Eos # (Auto) Baso # (Auto) Abs Immat Gran (auto) Absolute Neuts (auto) Absolute Nucleated RBC Nucleated RBC % (auto) PT INR VBG pH VBG pCO2 VBG pO2 VBG HCO3 VBG O2 Saturation VBG Base Excess Anion Gap Estim Creat Clear Calc Estimated GFR POC Glucose 62 117 H Random Glucose Calcium Magnesium Iron TIBC % Saturation Unsat Iron Binding Albumin Triglycerides Cholesterol LDL Cholesterol, Calc HDL Cholesterol Urine Opiates Screen Urine Fentanyl Screen Ur Barbiturates Screen Ur Phencyclidine Scrn Ur Amphetamines Screen U Benzodiazepines Scrn Urine Cocaine Screen U Marijuana (THC) Screen Assessment and Plan (1) Nephrotic syndrome: Status: Acute Plan 57 year old man admitted for anasarca likely from CHF and nephrotic syndrome Sirs Leukocytosis, tachycardia Check blood cultures, UA Chest x-ray showing increased interstitial markings suggestive of continued CHF with superimposed new left lower lobe infiltrate Start Rocephin and azithromycin Toxic metabolic encephalopathy. Resolving Sister stated that he has not been taking any of his medication at home and this medication was resumed upon admission, after holding medications patient is much more alert and oriented, will continue to hold Cogentin, Geodon and gabapentin in any other sedating medications Urinary retention Mosquera catheter placed last evening CHF with anasarca, proteinurea, unspecified nephrotic syndrome, high urine protein, albumin 1.9, edema Lasix 40mg IV BID Nephro following follow I&O closely ada and low na diet, ensure added Albumin x4 doses echocardiogram EF 50-55%, severely dilated left atrium Renal biopsy today Elevated ddimer VQ scan neg for PE Hypertension with elevated blood pressure reading. amlodipine 5mg daily, increase to 10mg labetolol as needed for SBP >180 Anemia, unspecified type s/p one unit PRBC lasix in between if needed? follow HH post transfusion Diabetes type 2 ss, lantus, ada diet Diabetic neuropathy gabapentin, held due to encephalopathy PAD not on asa or statin ? moderate protein calorie malnutrition added ensure to diet Parkinsons on Benztropine at home, held for encephalopathy DVT prophylaxis with heparin Attending Dr. Alvarez full code continued hospital stay for tx of CHF requiring IV lasix? Time Spent With Patient Time: Total time managing care of this patient today ____ minutes. Quality Stroke Does the patient have a stroke diagnosis?: No VTE Prior VTE?: No VTE Risk Level:: Medical - moderate - high VTE Device Contraindication: N/A - Device Ordered VTE Drug Contraindication: N/A - Med Ordered
--- NOTE | 2023-02-02 10:14 | MHC.CM.PN ---
Per ROUNDS discussion, Patient is having a Renal Biopsy today and is not yet medically cleared for dc. Home/resume [facility]ER is the tentative plan/goal and CM will continue to follow.
[2023-02-02 10:15] LABS: Glucose, Whole Blood 63 mg/dL (60-115)
[2023-02-02 10:56] LABS: Glucose, Whole Blood 64 mg/dL (60-115)
[2023-02-02 11:18] LABS: Glucose, Whole Blood 134 mg/dL (60-115)
[2023-02-02 12:52] LABS: Glucose, Whole Blood 89 mg/dL (60-115)
--- NOTE | 2023-02-02 12:55 | P.PNNP_ITS ---
Subjective Subjective Date of Service: 02/02/23 Interval history: Events noted. All recent data reviewed Physical Exam Vital Signs: Vital Signs: Last Vital Signs Temp 99.3 F 02/02/23 12:52 Pulse 96 02/02/23 12:52 Resp 22 H 02/02/23 12:52 BP 164/83 H 02/02/23 12:52 Pulse Ox 93 02/02/23 12:52 O2 Del Method 02/02/23 12:52 O2 Flow Rate 3 02/02/23 12:52 BMI result Body Mass Index 25.3 Const: General: no acute distress Eyes: EOM: EOMs intact bilaterally Neck: Neck: Yes supple Resp: Auscultation: diminished lung sounds Cardio: Rate: regular rate GI: Palpation (GI): Soft to palpation Neuro: General: moves all extremities Extrem: Other: Edema Objective Data Labs 02/02/23 05:31 02/02/23 05:31 Labs: Laboratory Results - last 24 hr 02/01/23 02/01/23 02/01/23 12:30 16:03 17:50 WBC RBC Hgb Hct MCV MCH MCHC RDW Plt Count MPV Immature Gran % (Auto) Neut % (Auto) Lymph % (Auto) [place] % (Auto) Eos % (Auto) Baso % (Auto) Lymph # (Auto) [place] # (Auto) Eos # (Auto) Baso # (Auto) Abs Immat Gran (auto) Absolute Neuts (auto) Absolute Nucleated RBC Nucleated RBC % (auto) PT INR VBG pH 7.44 H VBG pCO2 41 VBG pO2 47 VBG HCO3 28 H VBG O2 Saturation 76.0 VBG Base Excess 4.2 Sodium Potassium Chloride Carbon Dioxide Anion Gap BUN Creatinine Estim Creat Clear Calc Estimated GFR POC Glucose 113 Random Glucose Calcium Magnesium Iron TIBC % Saturation Unsat Iron Binding Albumin Triglycerides Cholesterol LDL Cholesterol, Calc HDL Cholesterol Urine Opiates Screen Not Detected Urine Fentanyl Screen Not Detected Ur Barbiturates Screen Not Detected Ur Phencyclidine Scrn Not Detected Ur Amphetamines Screen Not Detected U Benzodiazepines Scrn Not Detected Urine Cocaine Screen POSITIVE H U Marijuana (THC) Screen Not Detected 02/01/23 02/02/23 02/02/23 20:39 05:31 05:31 WBC RBC Hgb Hct MCV MCH MCHC RDW Plt Count MPV Immature Gran % (Auto) Neut % (Auto) Lymph % (Auto) [place] % (Auto) Eos % (Auto) Baso % (Auto) Lymph # (Auto) [place] # (Auto) Eos # (Auto) Baso # (Auto) Abs Immat Gran (auto) Absolute Neuts (auto) Absolute Nucleated RBC Nucleated RBC % (auto) PT 12.3 INR 1.1 VBG pH VBG pCO2 VBG pO2 VBG HCO3 VBG O2 Saturation VBG Base Excess Sodium Potassium Chloride Carbon Dioxide Anion Gap BUN Creatinine Estim Creat Clear Calc Estimated GFR POC Glucose 314 H Random Glucose Calcium Magnesium Iron TIBC % Saturation Unsat Iron Binding Albumin Triglycerides 83 Cholesterol 203 LDL Cholesterol, Calc 139 HDL Cholesterol 48 Urine Opiates Screen Urine Fentanyl Screen Ur Barbiturates Screen Ur Phencyclidine Scrn Ur Amphetamines Screen U Benzodiazepines Scrn Urine Cocaine Screen U Marijuana (THC) Screen 02/02/23 02/02/23 02/02/23 05:31 05:31 07:29 WBC 16.0 H RBC 3.48 L Hgb 8.2 L Hct 26.6 L MCV 76.4 L MCH 23.6 L MCHC 30.8 L RDW 18.7 H Plt Count 296 MPV 10.0 Immature Gran % (Auto) 0.5 H Neut % (Auto) 80.4 H Lymph % (Auto) 12.6 L [place] % (Auto) 5.0 Eos % (Auto) 1.1 Baso % (Auto) 0.4 Lymph # (Auto) 2.0 [place] # (Auto) 0.8 Eos # (Auto) 0.2 Baso # (Auto) 0.1 Abs Immat Gran (auto) 0.08 H Absolute Neuts (auto) 12.9 H Absolute Nucleated RBC 0.000 Nucleated RBC % (auto) 0.0 PT INR VBG pH VBG pCO2 VBG pO2 VBG HCO3 VBG O2 Saturation VBG Base Excess Sodium 142 Potassium 3.0 L Chloride 107 Carbon Dioxide 27 Anion Gap 11 L BUN 22 H Creatinine 1.18 Estim Creat Clear Calc 56.9 Estimated GFR > 60 POC Glucose 62 Random Glucose 78 Calcium 7.5 L D Magnesium 1.8 Iron 17 L TIBC 133 L % Saturation 13 L Unsat Iron Binding 116 Albumin 2.4 L Triglycerides Cholesterol LDL Cholesterol, Calc HDL Cholesterol Urine Opiates Screen Urine Fentanyl Screen Ur Barbiturates Screen Ur Phencyclidine Scrn Ur Amphetamines Screen U Benzodiazepines Scrn Urine Cocaine Screen U Marijuana (THC) Screen 02/02/23 02/02/23 02/02/23 08:41 10:12 10:32 WBC RBC Hgb Hct MCV MCH MCHC RDW Plt Count MPV Immature Gran % (Auto) Neut % (Auto) Lymph % (Auto) [place] % (Auto) Eos % (Auto) Baso % (Auto) Lymph # (Auto) [place] # (Auto) Eos # (Auto) Baso # (Auto) Abs Immat Gran (auto) Absolute Neuts (auto) Absolute Nucleated RBC Nucleated RBC % (auto) PT INR VBG pH VBG pCO2 VBG pO2 VBG HCO3 VBG O2 Saturation VBG Base Excess Sodium Potassium Chloride Carbon Dioxide Anion Gap BUN Creatinine Estim Creat Clear Calc Estimated GFR POC Glucose 117 H 63 64 Random Glucose Calcium Magnesium Iron TIBC % Saturation Unsat Iron Binding Albumin Triglycerides Cholesterol LDL Cholesterol, Calc HDL Cholesterol Urine Opiates Screen Urine Fentanyl Screen Ur Barbiturates Screen Ur Phencyclidine Scrn Ur Amphetamines Screen U Benzodiazepines Scrn Urine Cocaine Screen U Marijuana (THC) Screen 02/02/23 02/02/23 11:15 12:27 WBC RBC Hgb Hct MCV MCH MCHC RDW Plt Count MPV Immature Gran % (Auto) Neut % (Auto) Lymph % (Auto) [place] % (Auto) Eos % (Auto) Baso % (Auto) Lymph # (Auto) [place] # (Auto) Eos # (Auto) Baso # (Auto) Abs Immat Gran (auto) Absolute Neuts (auto) Absolute Nucleated RBC Nucleated RBC % (auto) PT INR VBG pH VBG pCO2 VBG pO2 VBG HCO3 VBG O2 Saturation VBG Base Excess Sodium Potassium Chloride Carbon Dioxide Anion Gap BUN Creatinine Estim Creat Clear Calc Estimated GFR POC Glucose 134 H 89 Random Glucose Calcium Magnesium Iron TIBC % Saturation Unsat Iron Binding Albumin Triglycerides Cholesterol LDL Cholesterol, Calc HDL Cholesterol Urine Opiates Screen Urine Fentanyl Screen Ur Barbiturates Screen Ur Phencyclidine Scrn Ur Amphetamines Screen U Benzodiazepines Scrn Urine Cocaine Screen U Marijuana (THC) Screen Procedures Date of Service Date of Service: 02/02/23 Assessment & Plan Assessment and plan (1) Nephrotic syndrome: Status: Acute Assessment and Plan: Has Anasarca Cocaine positive DDx- ? Diabetic nephropathy vs DM + alternate pathology W/U in progress; No ASA Renal biopsy today; Increased lasix to 40 mg bid Labs AM. Shall closely F/U Time Spent With Patient Time: Total time managing care of this patient today ____ minutes. Progress Note: Quality Stroke Does the patient have a stroke diagnosis?: No
[2023-02-02 13:23] LABS: Glucose, Whole Blood 141 mg/dL (60-115)
--- NOTE | 2023-02-02 13:34 | P.CDIM_ITS ---
PROVIDER RESPONSE TEXT: To clarify, the appropriate diagnosis supported by the clinical indicators: No complications of DM QUERY TEXT: PHYSICIAN'S DOCUMENTATION REQUEST Date of Query: 02/02/2023 12:30 PM EDT Patient Name: Yao Rivera Admit Date: 01/31/2023 Dear Kenisha Crenshaw, A review of the medical record indicates additional documentation may be needed. Please review below and update the documentation accordingly. Is there a diagnosis that correlates with the findings below: Clinical Indicators: POC: 01/31 Please clarify the following regarding the present/resolved complications of Diabetes Mellitus (DM): Hyperglycemia No complications of DM Other Other (explain) Clinically unable to determine (explain) Thank you, Keely Levine MS, RN, CCRN Use of terms such as suspected, likely, concern for, or probable (associated with a specific diagnosi s that is being evaluated, monitored, or treated as if it exists) are acceptable and can be coded in the inpatient se tting, when documented at the time of discharge. Please use your independent medical judgment in providing your response. THIS QUERY IS PART OF THE PERMANENT MEDICAL RECORD
--- NOTE | 2023-02-02 13:34 | P.CDIM_ITS ---
PROVIDER RESPONSE TEXT: To clarify, the appropriate diagnosis supported by the clinical indicators: Diastolic: acute QUERY TEXT: PHYSICIAN'S DOCUMENTATION REQUEST Date of Query: 02/02/2023 12:29 PM EDT Patient Name: Yao Rivera Admit Date: 01/31/2023 Dear Kenisha Crenshaw, A review of the medical record indicates additional documentation may be needed. Please review below and update the documentation accordingly. Clinical Indicators: Per provider progress note on 02/02: CHF with anasarca, proteinurea, unspecified echocardiogram EF 50-55%, severely dilated left atrium Per echo on 02/01: The visually estimated ejection fraction is between 50-55%. Labs: BNP on 01/31 - 429 Please provide further specificity regarding the most likely type and acuity of CHF you are evaluatin g, treating, or monitoring. Systolic Please specify if Acute, Chronic, or Acute on chronic, or Unable to determine Diastolic Please specify if Acute, Chronic, or Acute on chronic, or Unable to determine Combined Systolic/Diastolic Please specify if Acute, Chronic, or Acute on chronic, or Unable to determine Other Other (explain) Clinically unable to determine (explain) Thank you, Keely Levine, MS, RN, CCRN Use of terms such as suspected, likely, concern for, or probable (associated with a specific diagnosi s that is being evaluated, monitored, or treated as if it exists) are acceptable and can be coded in the inpatient se tting, when documented at the time of discharge. Please use your independent medical judgment in providing your response. THIS QUERY IS PART OF THE PERMANENT MEDICAL RECORD
[2023-02-02] MEDS: cefTRIAXone sodium 1 GM in 0.9 % Sodium Chloride 50 ML IV (13:44)
[2023-02-02] MEDS: Azithromycin 500 MG in 0.9 % Sodium Chloride 250 ML 125 MG IV (15:20)
[2023-02-02 16:12] LABS: Glucose, Whole Blood 265 mg/dL (60-115)
[2023-02-02] MEDS: Furosemide 20 MG TABLET 60 MG PO (16:34)
[2023-02-02] MEDS: Insulin Lispro 100 UNIT/ML 3 ML VIAL SUBCUT ×2 (16:35→21:19)
[2023-02-02 17:18] LABS: Appearance Urine Clear; Color Urine Yellow; Glucose Urine UA >=1000 mg/dL (Negative); Leukocyte Esterase Urine Negative (Negative); Nitrite Urine Negative (Negative); PH 6.5 (5.0-9.0); Specific Gravity - Urine 1.025 (1.005-1.025); UMIC TRIGGER UACC YES; Urine Blood Large (3+) (Negative); Urine Ketones Negative (Negative); Urine Protein >=1000 (4+) mg/dL (Neg-Trace)
[2023-02-02 17:34] LABS: Bacteria Urine None Seen (None Seen); RBC Urine >20 /HPF (0-2); Squamous Epithelial Cell Urine 0-2 /HPF (0-2); UACC Culture Trigger YES
[2023-02-02] MEDS: carvediloL 3.125 MG TABLET PO (20:03)
[2023-02-02 20:42] LABS: Glucose, Whole Blood 155 mg/dL (60-115)
[2023-02-03] VITALS (7 sets, daily range): BP systolic 144–168; BP diastolic 69–81; PULSE 88–98; RESP 16–20; TEMP 36.4–37; O2SAT 92–98
[2023-02-03] MEDS: traMADoL HCL 50 MG TABLET PO (01:34)
[2023-02-03] MEDS: Melatonin 3 MG TABLET 6 MG PO (01:35)
[2023-02-03 07:28] LABS: Hematocrit 27.7 % (42.0-52.0); Hemoglobin 8.5 g/dl (14.0-18.0); Mean Corpuscular HGB Conc 30.7 g/dl (31.0-36.0); Mean Corpuscular Hemoglobin 24.1 pg (27.0-33.0); Mean Corpuscular Volume 78.7 fL (80.0-98.0); Mean Platelet Volume 10.4 fL (9.4-12.4); Platelet Count 309 X10*3/uL (160-400); Red Blood Count 3.52 X10*6/uL (4.60-5.80); Red Cell Distribution Width 19.4 % (11.0-16.0)
[2023-02-03 07:30] LABS: Glucose, Whole Blood 181 mg/dL (60-115)
[2023-02-03 07:33] LABS: Blood Urea Nitrogen 31 mg/dL (9-16); Calcium 7.6 mg/dL (8.4-10.2); Creatinine Clr Calc Pharmacy 46.6; Estimated Glomerular Filt Rate 51; Glucose Random 195 mg/dL (60-115)
[2023-02-03 07:41] LABS: B Type Natriuretic Peptide 470 pg/mL (<100)
[2023-02-03 07:47] LABS: Anion Gap 14 (12-20); Carbon Dioxide 22 mmol/L (22-29); Chloride 106 mmol/L (96-108); Potassium 3.7 mmol/L (3.3-5.1); Sodium 138 mmol/L (135-145)
[2023-02-03] MEDS: Insulin Glargine,Hum.rec.anlog 100 UNIT/ML 10 ML VIAL 31 UNIT SUBCUT (07:56)
[2023-02-03] MEDS: Insulin Lispro 100 UNIT/ML 3 ML VIAL SUBCUT ×2 (07:56→12:05)
[2023-02-03] MEDS: Furosemide 20 MG TABLET 60 MG PO (07:56)
[2023-02-03] MEDS: carvediloL 3.125 MG TABLET PO ×2 (07:56→21:08)
[2023-02-03] MEDS: prednisoLONE Acetate 1 % Oph Susp 5 ML DRPBTL 1 DROP EYE-BOTH ×2 (07:57→15:47)
[2023-02-03] MEDS: Ketorolac Tromethamine 0.5% Op 5 ML DROPS 1 DROP EYE-BOTH ×2 (07:57→15:47)
[2023-02-03] MEDS: 0.9 % Sodium Chloride Flush 3 ML SYRINGE IVFLUSH (07:57)
[2023-02-03 09:28] LABS: Complement C3 115 mg/dL (82-185)
[2023-02-03] MEDS: Azithromycin 500 MG in 0.9 % Sodium Chloride 250 ML 125 MG IV (11:27)
[2023-02-03 11:33] LABS: Glucose, Whole Blood 254 mg/dL (60-115)
--- NOTE | 2023-02-03 12:56 | HO.PM.IMPN ---
Subjective Subjective Date of Service: 02/03/23 Interval History: seen and examined this morning follow up for pneumonia, anasarca having scrotal swelling Review of Systems Review of Systems: Yes all other systems are reviewed and are negative Constitutional Constitutional: Denies chills and Denies fever(s) Cardiovascular Cardiovascular: Denies chest pain and Denies palpitations Gastrointestinal Gastrointestinal: Denies abdominal pain Endocrine Endocrine: Denies palpitations Physical Exam Vital Signs: Vital Signs: Last Vital Signs Temp 98.2 F 02/03/23 11:50 Pulse 90 02/03/23 11:50 Resp 20 02/03/23 11:50 BP 157/76 H 02/03/23 11:50 Pulse Ox 95 02/03/23 11:50 O2 Del Method 02/03/23 11:50 O2 Flow Rate 3 02/03/23 11:50 BMI result Body Mass Index 25.3 Const: General: alert and awake Nutritional Appearance: average body habitus Resp: Effort & Inspection: normal respiratory effort, able to speak in complete sentences, no respiratory distress and no use of accessory muscles Cardio: Rate: regular rate Heart sounds: S1 normal heart sound present and S2 normal heart sound present GI: Inspection: No distended Palpation (GI): not soft : Other: scrotal edema, greco in place Neuro: Other: no focal deficits appreciated Extrem: Other: b/l leg edema Objective Data Active Medications Acetaminophen (Acetaminophen 325 Mg Tablet) 650 mg PO Q6H PRN PRN Reason: Pain, Mild (Pain Scale 1-3) Carvedilol (Carvedilol 3.125 Mg Tablet) 3.125 mg PO BID [facility]; Protocol Last Admin: 02/03/23 07:56 Dose: 3.125 mg Documented By: YAKOV Furosemide (Furosemide 20 Mg Tablet) 60 mg PO BID@0900,1800 [facility]; Protocol Last Admin: 02/03/23 07:56 Dose: 60 mg Documented By: YAKOV Glucose (Glucose Gel 15 Gm Gel..Gram.) 15 gm PO Q15M PRN; Protocol PRN Reason: per Hypoglycemia Standing Ord. Heparin Sodium (Porcine) (Heparin Sodium,Porcine 5,000 Unit/Ml Vial) 5,000 unit SUBCUT Q12H [facility] Last Admin: 02/01/23 12:32 Dose: 5,000 unit Documented By: HO.DOBROB Dextrose (D10) 250 mls @ 750 mls/hr IV Q15M PRN; Protocol PRN Reason: per Hypoglycemia Standing Ord. Last Infusion: 02/02/23 08:10 Dose: 0 mls/hr Documented By: BLANCA Ceftriaxone Sodium 1 gm/ (Sodium Chloride) 50 mls @ 100 mls/hr IV Q24H [facility] Last Infusion: 02/02/23 14:33 Dose: 0 mls/hr Documented By: BLANCA Azithromycin 500 mg/ Sodium (Chloride) 250 mls @ 125 mls/hr IV Q24H [facility] Last Admin: 02/03/23 11:27 Dose: 125 mls/hr Documented By: YAKOV Insulin Glargine (Insulin Glargine,Hum.Rec.Anlog 100 Unit/Ml 10 Ml Vial) 31 unit SUBCUT DAILY [facility] Last Admin: 02/03/23 07:56 Dose: 31 unit Documented By: YAKOV Insulin Human Lispro (Insulin Lispro 100 Unit/Ml 3 Ml Vial) 0 unit SUBCUT QIDACHS [facility]; Protocol Last Admin: 02/03/23 12:05 Dose: 6 unit Documented By: YAKOV Ketorolac Tromethamine (Ketorolac Tromethamine 0.5% Op 5 Ml Drops) 1 drop EYE-BOTH TID [facility] Last Admin: 02/03/23 07:57 Dose: 1 drop Documented By: YAKOV Labetalol HCl (Labetalol Hcl 100 Mg/20 Ml Vial) 10 mg IVPUSH Q4H PRN PRN Reason: SBP>180 Last Admin: 02/02/23 07:43 Dose: 10 mg Documented By: KARINA Melatonin (Melatonin 3 Mg Tablet) 6 mg PO BEDTIME PRN PRN Reason: Insomnia Last Admin: 02/03/23 01:35 Dose: 6 mg Documented By: ANGIE Non-Formulary Medication (Dulaglutide [Trulicity]) 1.5 mg SUBCUT WE@0900 [facility] Non-Formulary Medication (Ramelteon) 8 mg PO BEDTIME PRN PRN Reason: Sleep Ondansetron HCl (Ondansetron Hcl 4 Mg/2 Ml Vial) 4 mg IVPUSH Q8H PRN PRN Reason: Nausea and Vomiting Pharmacy Consult (Consult Rx Perform Med Rec) 1 each MISCELLANE ONCE PRN PRN Reason: Consult order Prednisolone Acetate (Prednisolone Acetate 1 % Oph Susp 5 Ml Drpbtl) 1 drop EYE-BOTH TID [facility] Last Admin: 02/03/23 07:57 Dose: 1 drop Documented By: YAKOV Sodium Chloride (0.9 % Sodium Chloride Flush 3 Ml Syringe) 3 ml IVFLUSH QSHIFT [facility] Last Admin: 02/03/23 07:57 Dose: 3 ml Documented By: YAKOV Labs 02/03/23 07:01 02/03/23 07:01 Labs: Laboratory Results - last 24 hr 02/02/23 02/02/23 02/02/23 05:31 13:14 15:42 MCV MCH MCHC RDW Plt Count MPV Absolute Nucleated RBC Nucleated RBC % (auto) Anion Gap Estim Creat Clear Calc Estimated GFR POC Glucose 141 H Random Glucose Calcium B-Natriuretic Peptide Urine Color Yellow Urine Appearance Clear Urine pH 6.5 Ur Specific [place] 1.025 Urine Protein >=1000 (4+) H Urine Glucose (UA) >=1000 H Urine Ketones Negative Urine Blood Large (3+) H Urine Nitrite Negative Ur Leukocyte Esterase Negative Urine RBC >20 H Urine WBC 6-10 H Ur Squamous Epith Cells 0-2 Urine Bacteria None Seen Hyaline Casts 3-5 Complement C3 115 Complement C4 41 02/02/23 02/02/23 02/03/23 16:05 20:36 07:01 MCV 78.7 L MCH 24.1 L MCHC 30.7 L RDW 19.4 H Plt Count 309 MPV 10.4 Absolute Nucleated RBC 0.000 Nucleated RBC % (auto) 0.0 Anion Gap Estim Creat Clear Calc Estimated GFR POC Glucose 265 H 155 H Random Glucose Calcium B-Natriuretic Peptide Urine Color Urine Appearance Urine pH Ur Specific [place] Urine Protein Urine Glucose (UA) Urine Ketones Urine Blood Urine Nitrite Ur Leukocyte Esterase Urine RBC Urine WBC Ur Squamous Epith Cells Urine Bacteria Hyaline Casts Complement C3 Complement C4 02/03/23 02/03/23 02/03/23 07:01 07:01 07:20 MCV MCH MCHC RDW Plt Count MPV Absolute Nucleated RBC Nucleated RBC % (auto) Anion Gap 14 Estim Creat Clear Calc 46.6 Estimated GFR 51 POC Glucose 181 H Random Glucose 195 H Calcium 7.6 L B-Natriuretic Peptide 470 H Urine Color Urine Appearance Urine pH Ur Specific [place] Urine Protein Urine Glucose (UA) Urine Ketones Urine Blood Urine Nitrite Ur Leukocyte Esterase Urine RBC Urine WBC Ur Squamous Epith Cells Urine Bacteria Hyaline Casts Complement C3 Complement C4 02/03/23 11:21 MCV MCH MCHC RDW Plt Count MPV Absolute Nucleated RBC Nucleated RBC % (auto) Anion Gap Estim Creat Clear Calc Estimated GFR POC Glucose 254 H Random Glucose Calcium B-Natriuretic Peptide Urine Color Urine Appearance Urine pH Ur Specific [place] Urine Protein Urine Glucose (UA) Urine Ketones Urine Blood Urine Nitrite Ur Leukocyte Esterase Urine RBC Urine WBC Ur Squamous Epith Cells Urine Bacteria Hyaline Casts Complement C3 Complement C4 Microbiology Microbiology Results: Microbiology 02/02/23 17:35 Urine Culture - Preliminary Urine clean catch - Urine marques top No growth to date. 02/02/23 07:53 Blood Culture - Preliminary Blood - Venous No growth after 24 hours. 02/02/23 07:54 Blood Culture - Preliminary Blood - Venous No growth after 24 hours. Assessment and Plan (1) Nephrotic syndrome: Status: Acute (2) Anasarca: Status: Acute (3) Anemia: Status: Acute Plan 57 year old man admitted for anasarca likely from CHF and nephrotic syndrome CAP Chest x-ray showing increased interstitial markings suggestive of continued CHF with superimposed new left lower lobe infiltrate continue Rocephin and azithromycin d#2 blood cultures negative to date Toxic metabolic encephalopathy. Resolving Sister stated that he has not been taking any of his medication at home and this medication was resumed upon admission, after holding medications patient is much more alert and oriented, will continue to hold Cogentin, Geodon and gabapentin and any other sedating medications Urinary retention Greoc catheter placed CHF with anasarca, proteinurea, unspecified nephrotic syndrome, high urine protein, albumin 1.9, edema follow I&O closely ada and low na diet, ensure added Albumin x4 doses echocardiogram EF 50-55%, severely dilated left atrium s/p Renal biopsy 02/02 - follow results nephro following, creatinine trending up slightly, will increase lasix to 80 IV bid, considering changing to lasix drip if no improvement tomorrow follow renal function Elevated ddimer VQ scan neg for PE Hypertension with elevated blood pressure reading. continue coreg labetolol as needed for SBP >180 Micocytic Anemia unclear duration, no recent baseline s/p one unit PRBC iron, TIBC and % sat all low, heme negative. no overt bleeding follow CBC Diabetes type 2 ss, lantus, ada diet Diabetic neuropathy gabapentin, held due to encephalopathy PAD not on asa or statin ? moderate protein calorie malnutrition added ensure to diet Parkinsons on Benztropine at home, held for encephalopathy DVT prophylaxis with heparin Attending Dr. Rodriguez full code Requires continued hospital stay for tx of CHF requiring IV lasix? Time Spent With Patient Time: Total time managing care of this patient today ____ minutes. Quality Stroke Does the patient have a stroke diagnosis?: No VTE Prior VTE?: No VTE Risk Level:: Medical - moderate - high VTE Device Contraindication: N/A - Device Ordered VTE Drug Contraindication: N/A - Med Ordered
--- NOTE | 2023-02-03 13:27 | P.PNNP_ITS ---
Subjective Subjective Date of Service: 02/03/23 Interval history: seen and examined this morning; Has Anasarca Physical Exam Vital Signs: Vital Signs: Last Vital Signs Temp 98.2 F 02/03/23 11:50 Pulse 90 02/03/23 11:50 Resp 20 02/03/23 11:50 BP 157/76 H 02/03/23 11:50 Pulse Ox 95 02/03/23 11:50 O2 Del Method 02/03/23 11:50 O2 Flow Rate 3 02/03/23 11:50 BMI result Body Mass Index 25.3 Const: General: no acute distress Orientation/consciousness: patient orie nted x3 Eyes: EOM: EOMs intact bilaterally Neck: Neck: Yes supple Resp: Auscultation: diminished lung sounds Cardio: Rate: regular rate GI: Palpation (GI): Soft to palpation Neuro: General: patient oriented x3 and moves all extremities Extrem: Other: Edema Objective Data Labs 02/03/23 07:01 02/03/23 07:01 Labs: Laboratory Results - last 24 hr 02/02/23 02/02/23 02/02/23 05:31 15:42 16:05 WBC RBC Hgb Hct MCV MCH MCHC RDW Plt Count MPV Absolute Nucleated RBC Nucleated RBC % (auto) Sodium Potassium Chloride Carbon Dioxide Anion Gap BUN Creatinine Estim Creat Clear Calc Estimated GFR POC Glucose 265 H Random Glucose Calcium B-Natriuretic Peptide Urine Color Yellow Urine Appearance Clear Urine pH 6.5 Ur Specific [place] 1.025 Urine Protein >=1000 (4+) H Urine Glucose (UA) >=1000 H Urine Ketones Negative Urine Blood Large (3+) H Urine Nitrite Negative Ur Leukocyte Esterase Negative Urine RBC >20 H Urine WBC 6-10 H Ur Squamous Epith Cells 0-2 Urine Bacteria None Seen Hyaline Casts 3-5 Complement C3 115 Complement C4 41 02/02/23 02/03/23 02/03/23 20:36 07:01 07:01 WBC 15.0 H RBC 3.52 L Hgb 8.5 L Hct 27.7 L MCV 78.7 L MCH 24.1 L MCHC 30.7 L RDW 19.4 H Plt Count 309 MPV 10.4 Absolute Nucleated RBC 0.000 Nucleated RBC % (auto) 0.0 Sodium 138 Potassium 3.7 D Chloride 106 Carbon Dioxide 22 Anion Gap 14 BUN 31 H Creatinine 1.44 H Estim Creat Clear Calc 46.6 Estimated GFR 51 POC Glucose 155 H Random Glucose 195 H Calcium 7.6 L B-Natriuretic Peptide Urine Color Urine Appearance Urine pH Ur Specific [place] Urine Protein Urine Glucose (UA) Urine Ketones Urine Blood Urine Nitrite Ur Leukocyte Esterase Urine RBC Urine WBC Ur Squamous Epith Cells Urine Bacteria Hyaline Casts Complement C3 Complement C4 02/03/23 02/03/23 02/03/23 07:01 07:20 11:21 WBC RBC Hgb Hct MCV MCH MCHC RDW Plt Count MPV Absolute Nucleated RBC Nucleated RBC % (auto) Sodium Potassium Chloride Carbon Dioxide Anion Gap BUN Creatinine Estim Creat Clear Calc Estimated GFR POC Glucose 181 H 254 H Random Glucose Calcium B-Natriuretic Peptide 470 H Urine Color Urine Appearance Urine pH Ur Specific [place] Urine Protein Urine Glucose (UA) Urine Ketones Urine Blood Urine Nitrite Ur Leukocyte Esterase Urine RBC Urine WBC Ur Squamous Epith Cells Urine Bacteria Hyaline Casts Complement C3 Complement C4 Microbiology Microbiology Results: Microbiology 02/02/23 17:35 Urine clean catch - Urine marques top Urine Culture - Preliminary No growth to date. 02/02/23 07:53 Blood - Venous Blood Culture - Preliminary No growth after 24 hours. 02/02/23 07:54 Blood - Venous Blood Culture - Preliminary No growth after 24 hours. Procedures Date of Service Date of Service: 02/03/23 Assessment & Plan Assessment and plan (1) Nephrotic syndrome: Status: Acute Assessment and Plan: Has Anasarca Cocaine positive DDx- ? Diabetic nephropathy vs DM + alternate pathology W/U in progress; No ASA Had Renal biopsy ; Increased lasix to 80 mg IV bid Labs AM. Shall closely F/U Progress Note: Quality Stroke Does the patient have a stroke diagnosis?: No
[2023-02-03] MEDS: cefTRIAXone sodium 1 GM in 0.9 % Sodium Chloride 50 ML IV (14:46)
[2023-02-03 16:35] LABS: Glucose, Whole Blood 53 mg/dL (60-115)
[2023-02-03] MEDS: Dextrose 10 % 250 ML 750 ML IV (16:37)
[2023-02-03 17:17] LABS: Glucose, Whole Blood 109 mg/dL (60-115)
[2023-02-03 18:27] LABS: Glucose, Whole Blood 103 mg/dL (60-115)
[2023-02-03] MEDS: Furosemide 100 MG/10 ML VIAL 80 MG IVPUSH (18:57)
[2023-02-03 20:03] LABS: Glucose, Whole Blood 109 mg/dL (60-115)
[2023-02-03 23:09] LABS: Myeloperoxidase Antibody <1.0 AI; Proteinase 3 PR3 Antibodies <1.0 AI
[2023-02-04] VITALS (9 sets, daily range): BP systolic 156–169; BP diastolic 76–90; PULSE 85–93; RESP 18–20; TEMP 36.2–37; O2SAT 96–100
[2023-02-04 07:04] LABS: Hematocrit 25.3 % (42.0-52.0); Hemoglobin 7.9 g/dl (14.0-18.0); Mean Corpuscular HGB Conc 31.2 g/dl (31.0-36.0); Mean Corpuscular Hemoglobin 23.7 pg (27.0-33.0); Mean Corpuscular Volume 75.7 fL (80.0-98.0); Mean Platelet Volume 10.1 fL (9.4-12.4); Platelet Count 298 X10*3/uL (160-400); Red Blood Count 3.34 X10*6/uL (4.60-5.80); White Blood Count 9.6 X10*3/uL (4.8-10.8)
[2023-02-04 07:24] LABS: Blood Urea Nitrogen 29 mg/dL (9-16); Creatinine Clr Calc Pharmacy 46.6; Estimated Glomerular Filt Rate 51; Glucose Random 127 mg/dL (60-115)
[2023-02-04 07:39] LABS: Anion Gap 12 (12-20); Carbon Dioxide 27 mmol/L (22-29); Chloride 103 mmol/L (96-108); Potassium 3.5 mmol/L (3.3-5.1); Sodium 138 mmol/L (135-145)
[2023-02-04 07:56] LABS: Glucose, Whole Blood 147 mg/dL (60-115)
[2023-02-04 08:21] LABS: HBsAGNum1 0.28 S/CO (0.00-0.99); HIV AB/AG Nonreactive (Nonreactive); HIV Num 1 0.05 S/CO (0.00-0.99); Hepatitis B Surface Antigen Negative (Negative); ~HepC Num1 12.06 S/CO (0.00-0.79); ~Hepatitis C Antibody Reactive (Nonreactive)
[2023-02-04] MEDS: Furosemide 100 MG/10 ML VIAL 80 MG IVPUSH ×2 (09:36→18:40)
[2023-02-04] MEDS: Aspirin Enteric Coated 81 MG TABLET.DR PO (09:36)
[2023-02-04] MEDS: Insulin Glargine,Hum.rec.anlog 100 UNIT/ML 10 ML VIAL 15 UNIT SUBCUT (09:37)
[2023-02-04] MEDS: 0.9 % Sodium Chloride Flush 3 ML SYRINGE IVFLUSH ×3 (09:37→23:51)
[2023-02-04] MEDS: Ketorolac Tromethamine 0.5% Op 5 ML DROPS 1 DROP EYE-BOTH ×3 (09:37→20:32)
[2023-02-04] MEDS: carvediloL 3.125 MG TABLET PO ×2 (09:37→20:32)
[2023-02-04] MEDS: prednisoLONE Acetate 1 % Oph Susp 5 ML DRPBTL 1 DROP EYE-BOTH ×3 (09:38→20:32)
--- NOTE | 2023-02-04 10:09 | MHC.CM.PN ---
Per ROUNDS discussion Patient is still on IV Lasix and is not yet medically cleared for dc. 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
[2023-02-04] MEDS: Azithromycin 500 MG in 0.9 % Sodium Chloride 250 ML 125 MG IV (11:01)
[2023-02-04 11:22] LABS: Glucose, Whole Blood 243 mg/dL (60-115)
--- NOTE | 2023-02-04 11:35 | HO.PM.IMPN ---
Subjective Subjective Date of Service: 02/04/23 Interval History: seen and examined this morning follow up for nephrotic syndrome, fluid overload, pna scrotal swelling improved, denies sob, cough Review of Systems Review of Systems: Yes all other systems are reviewed and are negative Constitutional Constitutional: Denies chills and Denies fever(s) Cardiovascular Cardiovascular: Denies chest pain, Denies palpitations and Denies dyspnea Respiratory Respiratory: Denies cough and Denies dyspnea Gastrointestinal Gastrointestinal: Denies abdominal pain Endocrine Endocrine: Denies palpitations Physical Exam Vital Signs: Vital Signs: Last Vital Signs Temp 98.2 F 02/04/23 11:13 Pulse 88 02/04/23 11:13 Resp 20 02/04/23 11:13 BP 168/81 H 02/04/23 11:13 Pulse Ox 97 02/04/23 10:52 O2 Del Method 02/04/23 10:52 O2 Flow Rate 3 02/04/23 10:52 BMI result Body Mass Index 25.3 Const: General: alert and awake Nutritional Appearance: average body habitus Resp: Effort & Inspection: normal respiratory effort, able to speak in complete sentences, no respiratory distress and no use of accessory muscles Cardio: Rate: regular rate Heart sounds: S1 normal heart sound present and S2 normal heart sound present GI: Inspection: No distended Palpation (GI): not soft : Other: scrotal/penile edema improving, greco in place Neuro: Other: no focal deficits appreciated Extrem: Other: b/l 3+ leg edema to thigh Objective Data Active Medications Acetaminophen (Acetaminophen 325 Mg Tablet) 650 mg PO Q6H PRN PRN Reason: Pain, Mild (Pain Scale 1-3) Aspirin (Aspirin Enteric Coated 81 Mg Tablet.) 81 mg PO DAILY [facility] Last Admin: 02/04/23 09:36 Dose: 81 mg Documented By: NAEL Carvedilol (Carvedilol 3.125 Mg Tablet) 3.125 mg PO BID [facility]; Protocol Last Admin: 02/04/23 09:37 Dose: 3.125 mg Documented By: NAEL Furosemide (Furosemide 100 Mg/10 Ml Vial) 80 mg IVPUSH BID@0900,1800 [facility] [place]; Protocol Last Admin: 02/04/23 09:36 Dose: 80 mg Documented By: NAEL Glucose (Glucose Gel 15 Gm Gel..Gram.) 15 gm PO Q15M PRN; Protocol PRN Reason: per Hypoglycemia Standing Ord. Heparin Sodium (Porcine) (Heparin Sodium,Porcine 5,000 Unit/Ml Vial) 5,000 unit SUBCUT Q12H [facility] [place] Last Admin: 02/04/23 00:44 Dose: Not Given Dextrose (D10) 250 mls @ 750 mls/hr IV Q15M PRN; Protocol PRN Reason: per Hypoglycemia Standing Ord. Last Infusion: 02/03/23 17:40 Dose: 0 mls/hr Documented By: YAKOV Ceftriaxone Sodium 1 gm/ (Sodium Chloride) 50 mls @ 100 mls/hr IV Q24H [facility] [place] Last Infusion: 02/03/23 15:48 Dose: 0 mls/hr Documented By: YAKOV Azithromycin 500 mg/ Sodium (Chloride) 250 mls @ 125 mls/hr IV Q24H [facility] [place] Last Infusion: 02/04/23 11:02 Dose: 0 mls/hr Documented By: NAEL Insulin Glargine (Insulin Glargine,Hum.Rec.Anlog 100 Unit/Ml 10 Ml Vial) 15 unit SUBCUT DAILY [facility] [place] Last Admin: 02/04/23 09:37 Dose: 15 unit Documented By: NAEL Insulin Human Lispro (Insulin Lispro 100 Unit/Ml 3 Ml Vial) 0 unit SUBCUT QIDACHS [facility] [place]; Protocol Last Admin: 02/04/23 09:58 Dose: Not Given Documented By: NAEL Non-Admin Reason: No Insulin Coverage Ketorolac Tromethamine (Ketorolac Tromethamine 0.5% Op 5 Ml Drops) 1 drop EYE-BOTH TID [facility] [place] Last Admin: 02/04/23 09:37 Dose: 1 drop Documented By: NAEL Labetalol HCl (Labetalol Hcl 100 Mg/20 Ml Vial) 10 mg IVPUSH Q4H PRN PRN Reason: SBP>180 Last Admin: 02/02/23 07:43 Dose: 10 mg Documented By: KARINA Melatonin (Melatonin 3 Mg Tablet) 6 mg PO BEDTIME PRN PRN Reason: Insomnia Last Admin: 02/03/23 01:35 Dose: 6 mg Documented By: ANGIE Non-Formulary Medication (Dulaglutide [Trulicity]) 1.5 mg SUBCUT WE@0900 [facility] [place] Ondansetron HCl (Ondansetron Hcl 4 Mg/2 Ml Vial) 4 mg IVPUSH Q8H PRN PRN Reason: Nausea and Vomiting Pharmacy Consult (Consult Rx Perform Med Rec) 1 each MISCELLANE ONCE PRN PRN Reason: Consult order Prednisolone Acetate (Prednisolone Acetate 1 % Oph Susp 5 Ml Drpbtl) 1 drop EYE-BOTH TID [facility] [place] Last Admin: 02/04/23 09:38 Dose: 1 drop Documented By: NAEL Sodium Chloride (0.9 % Sodium Chloride Flush 3 Ml Syringe) 3 ml IVFLUSH QSHIFT [facility] [place] Last Admin: 02/04/23 09:37 Dose: 3 ml Documented By: NAEL Labs 02/04/23 06:43 02/04/23 06:43 Labs: Laboratory Results - last 24 hr 01/31/23 02/02/23 02/03/23 05:04 05:31 07:01 MCV MCH MCHC RDW Plt Count MPV Absolute Nucleated RBC Nucleated RBC % (auto) Anion Gap Estim Creat Clear Calc Estimated GFR POC Glucose Random Glucose Calcium Proteinase 3 (PR3) Ab <1.0 Myeloperoxidase Ab <1.0 Hep Bs Antigen Negative Hepatitis C Ab (EIA) Reactive H HIV 1&2 Ab/P24 Ag 4thGn Nonreactive Blood Type Antibody Screen Crossmatch See Detail 02/03/23 02/03/23 02/03/23 16:16 17:12 18:23 MCV MCH MCHC RDW Plt Count MPV Absolute Nucleated RBC Nucleated RBC % (auto) Anion Gap Estim Creat Clear Calc Estimated GFR POC Glucose 53 L* 109 103 Random Glucose Calcium Proteinase 3 (PR3) Ab Myeloperoxidase Ab Hep Bs Antigen Hepatitis C Ab (EIA) HIV 1&2 Ab/P24 Ag 4thGn Blood Type Antibody Screen Crossmatch 02/03/23 02/04/23 02/04/23 19:54 06:43 06:43 MCV 75.7 L MCH 23.7 L MCHC 31.2 RDW 19.0 H Plt Count 298 MPV 10.1 Absolute Nucleated RBC 0.000 Nucleated RBC % (auto) 0.0 Anion Gap 12 Estim Creat Clear Calc 46.6 Estimated GFR 51 POC Glucose 109 Random Glucose 127 H Calcium 8.0 L Proteinase 3 (PR3) Ab Myeloperoxidase Ab Hep Bs Antigen Hepatitis C Ab (EIA) HIV 1&2 Ab/P24 Ag 4thGn Blood Type Antibody Screen Crossmatch 02/04/23 02/04/23 02/04/23 07:18 07:59 10:57 MCV MCH MCHC RDW Plt Count MPV Absolute Nucleated RBC Nucleated RBC % (auto) Anion Gap Estim Creat Clear Calc Estimated GFR POC Glucose 147 H 243 H Random Glucose Calcium Proteinase 3 (PR3) Ab Myeloperoxidase Ab Hep Bs Antigen Hepatitis C Ab (EIA) HIV 1&2 Ab/P24 Ag 4thGn Blood Type A Positive Antibody Screen NEGATIVE Crossmatch See Detail Microbiology Microbiology Results: Microbiology 02/02/23 07:53 Blood Culture - Preliminary Blood - Venous No growth after 48 hours. 02/02/23 07:54 Blood Culture - Preliminary Blood - Venous No growth after 48 hours. 02/02/23 17:35 Urine Culture - Final Urine clean catch - Urine marques top No growth. Assessment and Plan (1) Nephrotic syndrome: Status: Acute (2) Anemia: Status: Acute (3) T2DM (type 2 diabetes mellitus): Status: Acute Plan 57 year old man admitted for anasarca likely from CHF and nephrotic syndrome CAP Chest x-ray showing increased interstitial markings suggestive of continued CHF with superimposed new left lower lobe infiltrate continue Rocephin and azithromycin d#3 blood cultures negative Toxic metabolic encephalopathy. 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 no evidence of HUS/TTP given normal platelets and no evidence of hemolysis; ANCA pending nephro following, continue lasix to 80 IV bid, better UO with increased dose follow renal function Elevated ddimer VQ scan neg for PE Hypertension with elevated blood pressure reading. continue coreg labetolol as needed for SBP >180 Micocytic Anemia unclear duration, no recent baseline s/p one unit PRBC iron, TIBC and % sat all low, heme negative. no overt bleeding H/H trending down, will transfuse another unit of RBC follow CBC Urinary retention Greco catheter placed, attempt voiding trial when swelling improves Diabetes type 2 hypoglycemic episode 02/03 unclear if pt compliant with meds at home, will decrease dose of lantus ss, lantus, ada diet Diabetic neuropathy gabapentin, held due to encephalopathy PAD not on asa or statin ? moderate protein calorie malnutrition added ensure to diet Parkinsons on Benztropine at home, held for encephalopathy DVT prophylaxis with heparin Attending Dr. Pleitez full code Requires continued hospital stay for tx of CHF requiring IV lasix? Time Spent With Patient Time: Total time managing care of this patient today ____ minutes. Quality Stroke Does the patient have a stroke diagnosis?: No VTE Prior VTE?: No VTE Risk Level:: Medical - moderate - high VTE Device Contraindication: N/A - Device Ordered VTE Drug Contraindication: N/A - Med Ordered
--- NOTE | 2023-02-04 11:40 | P.PNNP_ITS ---
Subjective Subjective Date of Service: 02/04/23 Interval history: seen and examined this morning; Edema better Physical Exam Vital Signs: Vital Signs: Last Vital Signs Temp 98.2 F 02/04/23 11:13 Pulse 88 02/04/23 11:13 Resp 20 02/04/23 11:13 BP 168/81 H 02/04/23 11:13 Pulse Ox 97 02/04/23 10:52 O2 Del Method 02/04/23 10:52 O2 Flow Rate 3 02/04/23 10:52 BMI result Body Mass Index 25.3 Const: General: no acute distress Orientation/consciousness: patient orie nted x3 Eyes: EOM: EOMs intact bilaterally Neck: Neck: Yes supple Resp: Auscultation: diminished lung sounds Cardio: Rate: regular rate GI: Palpation (GI): Soft to palpation Neuro: General: patient oriented x3 and moves all extremities Objective Data Labs 02/04/23 06:43 02/04/23 06:43 Labs: Laboratory Results - last 24 hr 01/31/23 02/02/23 02/03/23 05:04 05:31 07:01 WBC RBC Hgb Hct MCV MCH MCHC RDW Plt Count MPV Absolute Nucleated RBC Nucleated RBC % (auto) Sodium Potassium Chloride Carbon Dioxide Anion Gap BUN Creatinine Estim Creat Clear Calc Estimated GFR POC Glucose Random Glucose Calcium Proteinase 3 (PR3) Ab <1.0 Myeloperoxidase Ab <1.0 Hep Bs Antigen Negative Hepatitis C Ab (EIA) Reactive H HIV 1&2 Ab/P24 Ag 4thGn Nonreactive Blood Type Antibody Screen Crossmatch See Detail 02/03/23 02/03/23 02/03/23 16:16 17:12 18:23 WBC RBC Hgb Hct MCV MCH MCHC RDW Plt Count MPV Absolute Nucleated RBC Nucleated RBC % (auto) Sodium Potassium Chloride Carbon Dioxide Anion Gap BUN Creatinine Estim Creat Clear Calc Estimated GFR POC Glucose 53 L* 109 103 Random Glucose Calcium Proteinase 3 (PR3) Ab Myeloperoxidase Ab Hep Bs Antigen Hepatitis C Ab (EIA) HIV 1&2 Ab/P24 Ag 4thGn Blood Type Antibody Screen Crossmatch 02/03/23 02/04/23 02/04/23 19:54 06:43 06:43 WBC 9.6 RBC 3.34 L Hgb 7.9 L Hct 25.3 L MCV 75.7 L MCH 23.7 L MCHC 31.2 RDW 19.0 H Plt Count 298 MPV 10.1 Absolute Nucleated RBC 0.000 Nucleated RBC % (auto) 0.0 Sodium 138 Potassium 3.5 Chloride 103 Carbon Dioxide 27 Anion Gap 12 BUN 29 H Creatinine 1.44 H Estim Creat Clear Calc 46.6 Estimated GFR 51 POC Glucose 109 Random Glucose 127 H Calcium 8.0 L Proteinase 3 (PR3) Ab Myeloperoxidase Ab Hep Bs Antigen Hepatitis C Ab (EIA) HIV 1&2 Ab/P24 Ag 4thGn Blood Type Antibody Screen Crossmatch 02/04/23 02/04/23 02/04/23 07:18 07:59 10:57 WBC RBC Hgb Hct MCV MCH MCHC RDW Plt Count MPV Absolute Nucleated RBC Nucleated RBC % (auto) Sodium Potassium Chloride Carbon Dioxide Anion Gap BUN Creatinine Estim Creat Clear Calc Estimated GFR POC Glucose 147 H 243 H Random Glucose Calcium Proteinase 3 (PR3) Ab Myeloperoxidase Ab Hep Bs Antigen Hepatitis C Ab (EIA) HIV 1&2 Ab/P24 Ag 4thGn Blood Type A Positive Antibody Screen NEGATIVE Crossmatch See Detail Microbiology Microbiology Results: Microbiology 02/02/23 07:53 Blood - Venous Blood Culture - Preliminary No growth after 48 hours. 02/02/23 07:54 Blood - Venous Blood Culture - Preliminary No growth after 48 hours. 02/02/23 17:35 Urine clean catch - Urine marques top Urine Culture - Final No growth. Procedures Date of Service Date of Service: 02/04/23 Assessment & Plan Assessment and plan (1) Nephrotic syndrome: Status: Acute Assessment and Plan: Has Anasarca Cocaine positive DDx- ? 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 Shall closely F/U Progress Note: Quality Stroke Does the patient have a stroke diagnosis?: No
[2023-02-04] MEDS: Heparin Sodium,Porcine 5,000 UNIT/ML VIAL 5000 UNIT SUBCUT ×2 (12:21→23:47)
[2023-02-04] MEDS: Insulin Lispro 100 UNIT/ML 3 ML VIAL SUBCUT ×2 (12:21→20:33)
[2023-02-04 14:37] LABS: IgA 466 mg/dL (47-310); IgG 1175 mg/dL (600-1640); IgM 184 mg/dL (50-300)
[2023-02-04] MEDS: cefTRIAXone sodium 1 GM in 0.9 % Sodium Chloride 50 ML IV (14:37)
[2023-02-04 15:08] LABS: Anti Nuclear Antibody Screen NEGATIVE (NEGATIVE)
[2023-02-04 16:25] LABS: Glucose, Whole Blood 129 mg/dL (60-115)
[2023-02-04 19:59] LABS: Glucose, Whole Blood 227 mg/dL (60-115)
[2023-02-04] MEDS: Melatonin 3 MG TABLET 6 MG PO (20:32)
[2023-02-05] MEDS: diphenhydrAMINE HCL 25 MG CAPSULE 50 MG PO (00:33)
[2023-02-05 03:50] VITALS: BP 176/88; PULSE 91; RESP 20; TEMP 36.9; O2SAT 98
[2023-02-05 06:07] LABS: Anion Gap 14 (12-20); Blood Urea Nitrogen 31 mg/dL (9-16); Calcium 7.6 mg/dL (8.4-10.2); Carbon Dioxide 20 mmol/L (22-29); Chloride 108 mmol/L (96-108); Creatinine Clr Calc Pharmacy 53.7; Estimated Glomerular Filt Rate 60; Glucose Random 151 mg/dL (60-115); Potassium 4.3 mmol/L (3.3-5.1); Sodium 138 mmol/L (135-145)
[2023-02-05 07:11] VITALS: BP 171/86; PULSE 97; RESP 18; TEMP 36.5; O2SAT 96
[2023-02-05 07:13] LABS: Hematocrit 27.9 % (42.0-52.0); Hemoglobin 8.7 g/dl (14.0-18.0); Mean Corpuscular HGB Conc 31.2 g/dl (31.0-36.0); Mean Corpuscular Hemoglobin 24.3 pg (27.0-33.0); Mean Corpuscular Volume 77.9 fL (80.0-98.0); Mean Platelet Volume 10.3 fL (9.4-12.4); Platelet Count 319 X10*3/uL (160-400); Red Blood Count 3.58 X10*6/uL (4.60-5.80); Red Cell Distribution Width 18.9 % (11.0-16.0); White Blood Count 9.9 X10*3/uL (4.8-10.8)
[2023-02-05] MEDS: prednisoLONE Acetate 1 % Oph Susp 5 ML DRPBTL 1 DROP EYE-BOTH ×3 (07:51→20:15)
[2023-02-05] MEDS: Furosemide 100 MG/10 ML VIAL 80 MG IVPUSH (07:51)
[2023-02-05] MEDS: Ketorolac Tromethamine 0.5% Op 5 ML DROPS 1 DROP EYE-BOTH ×3 (07:51→20:15)
[2023-02-05] MEDS: 0.9 % Sodium Chloride Flush 3 ML SYRINGE IVFLUSH ×2 (07:51→20:16)
[2023-02-05] MEDS: Aspirin Enteric Coated 81 MG TABLET.DR PO (07:52)
[2023-02-05] MEDS: Insulin Glargine,Hum.rec.anlog 100 UNIT/ML 10 ML VIAL 15 UNIT SUBCUT (07:52)
[2023-02-05] MEDS: carvediloL 3.125 MG TABLET PO ×2 (07:55→20:15)
[2023-02-05 07:57] LABS: Glucose, Whole Blood 107 mg/dL (60-115)
--- NOTE | 2023-02-05 09:02 | PM.PNNEP ---
Subjective Subjective Date of Service: 02/05/23 Interval history: seen and examined this morning. Wants his Mosquera removed Physical Exam Vital Signs: Vital Signs: Last Vital Signs Temp 97.7 F 02/05/23 07:11 Pulse 97 02/05/23 07:11 Resp 18 02/05/23 07:11 BP 171/86 H 02/05/23 07:11 Pulse Ox 96 02/05/23 07:11 O2 Del Method 02/05/23 07:11 O2 Flow Rate 3 02/05/23 07:11 BMI result Body Mass Index 25.3 Const: General: no acute distress Orientation/consciousness: patient oriented x3 Eyes: EOM: EOMs intact bilaterally Resp: Auscultation: diminished lung sounds Cardio: Rate: regular rate GI: Palpation (GI): Soft to palpation Neuro: General: patient oriented x3 and moves all extremities Objective Data Labs 02/05/23 07:06 02/05/23 05:27 Labs: Laboratory Results - last 24 hr 01/31/23 02/02/23 02/02/23 05:04 05:31 05:31 WBC RBC Hgb Hct MCV MCH MCHC RDW Plt Count MPV Absolute Nucleated RBC Nucleated RBC % (auto) Sodium Potassium Chloride Carbon Dioxide Anion Gap BUN Creatinine Estim Creat Clear Calc Estimated GFR POC Glucose Random Glucose Calcium IgG Total 1175 IgA Total 466 H IgM 184 ALEJA Interpretation SEE NOTE CARA Screen NEGATIVE Blood Type Antibody Screen Crossmatch See Detail 02/04/23 02/04/23 02/04/23 07:59 10:57 16:14 WBC RBC Hgb Hct MCV MCH MCHC RDW Plt Count MPV Absolute Nucleated RBC Nucleated RBC % (auto) Sodium Potassium Chloride Carbon Dioxide Anion Gap BUN Creatinine Estim Creat Clear Calc Estimated GFR POC Glucose 243 H 129 H Random Glucose Calcium IgG Total IgA Total IgM ALEJA Interpretation CARA Screen Blood Type A Positive Antibody Screen NEGATIVE Crossmatch See Detail 02/04/23 02/05/23 02/05/23 19:49 05:27 07:06 WBC 9.9 RBC 3.58 L Hgb 8.7 L Hct 27.9 L MCV 77.9 L MCH 24.3 L MCHC 31.2 RDW 18.9 H Plt Count 319 MPV 10.3 Absolute Nucleated RBC 0.000 Nucleated RBC % (auto) 0.0 Sodium 138 Potassium 4.3 D Chloride 108 Carbon Dioxide 20 L Anion Gap 14 BUN 31 H Creatinine 1.25 Estim Creat Clear Calc 53.7 Estimated GFR 60 POC Glucose 227 H Random Glucose 151 H Calcium 7.6 L IgG Total IgA Total IgM ALEJA Interpretation CARA Screen Blood Type Antibody Screen Crossmatch 02/05/23 07:10 WBC RBC Hgb Hct MCV MCH MCHC RDW Plt Count MPV Absolute Nucleated RBC Nucleated RBC % (auto) Sodium Potassium Chloride Carbon Dioxide Anion Gap BUN Creatinine Estim Creat Clear Calc Estimated GFR POC Glucose 107 Random Glucose Calcium IgG Total IgA Total IgM ALEJA Interpretation CARA Screen Blood Type Antibody Screen Crossmatch Microbiology Microbiology Results: Microbiology 02/02/23 07:53 Blood - Venous Blood Culture - Preliminary No growth after 48 hours. 02/02/23 07:54 Blood - Venous Blood Culture - Preliminary No growth after 48 hours. 02/02/23 17:35 Urine clean catch - Urine marques top Urine Culture - Final No growth. Procedures Date of Service Date of Service: 02/05/23 Assessment & Plan Assessment and plan (1) Nephrotic syndrome: Status: Acute Assessment and Plan: Has Anasarca Was Cocaine positive DDx- ? 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 Shall closely F/U Progress Note: Quality Stroke Does the patient have a stroke diagnosis?: No
[2023-02-05 11:05] VITALS: BP 163/74; PULSE 88; RESP 18; TEMP 36.8; O2SAT 95
[2023-02-05 11:27] LABS: Glucose, Whole Blood 108 mg/dL (60-115)
[2023-02-05] MEDS: Azithromycin 500 MG in 0.9 % Sodium Chloride 250 ML 125 MG IV (11:56)
[2023-02-05] MEDS: Heparin Sodium,Porcine 5,000 UNIT/ML VIAL 5000 UNIT SUBCUT (11:56)
--- NOTE | 2023-02-05 12:03 | HO.PM.IMPN ---
Subjective Subjective Date of Service: 02/05/23 Interval History: seen and examined this morning follow up for nephrotic syndrome, fluid overload, pna scrotal swelling improved, denies sob, cough Review of Systems Review of Systems: Yes all other systems are reviewed and are negative Constitutional Constitutional: Denies chills and Denies fever(s) Cardiovascular Cardiovascular: Denies chest pain, Denies palpitations and Denies dyspnea Respiratory Respiratory: Denies cough and Denies dyspnea Gastrointestinal Gastrointestinal: Denies abdominal pain Endocrine Endocrine: Denies palpitations Physical Exam Vital Signs: Vital Signs: Last Vital Signs Temp 98.2 F 02/05/23 11:05 Pulse 88 02/05/23 11:05 Resp 18 02/05/23 11:05 BP 163/74 H 02/05/23 11:05 Pulse Ox 95 02/05/23 11:05 O2 Del Method 02/05/23 11:05 O2 Flow Rate 3 02/05/23 07:11 BMI result Body Mass Index 25.3 Appearing in no acute distress lung sounds are clear to auscultation heart regular rate rhythm, clear S1, S2 positive bowel sounds, abdomen is soft, nontender neuro patient is alert x3, no focal deficits FC in place for fluid management Objective Data Active Medications Acetaminophen (Acetaminophen 325 Mg Tablet) 650 mg PO Q6H PRN PRN Reason: Pain, Mild (Pain Scale 1-3) Aspirin (Aspirin Enteric Coated 81 Mg Tablet.) 81 mg PO DAILY [facility] Last Admin: 02/05/23 07:52 Dose: 81 mg Documented By: YAKOV Carvedilol (Carvedilol 3.125 Mg Tablet) 3.125 mg PO BID [facility]; Protocol Last Admin: 02/05/23 07:55 Dose: 3.125 mg Documented By: YAKOV Furosemide (Furosemide 100 Mg/10 Ml Vial) 80 mg IVPUSH BID@0900,1800 [facility]; Protocol Last Admin: 02/05/23 07:51 Dose: 80 mg Documented By: YAKOV Comments: Glucose (Glucose Gel 15 Gm Gel..Gram.) 15 gm PO Q15M PRN; Protocol PRN Reason: per Hypoglycemia Standing Ord. Heparin Sodium (Porcine) (Heparin Sodium,Porcine 5,000 Unit/Ml Vial) 5,000 unit SUBCUT Q12H [facility] Last Admin: 02/05/23 11:56 Dose: 5,000 unit Documented By: YAKOV Dextrose (D10) 250 mls @ 750 mls/hr IV Q15M PRN; Protocol PRN Reason: per Hypoglycemia Standing Ord. Last Infusion: 02/03/23 17:40 Dose: 0 mls/hr Documented By: YAKOV Ceftriaxone Sodium 1 gm/ (Sodium Chloride) 50 mls @ 100 mls/hr IV Q24H [facility] Last Infusion: 02/04/23 15:45 Dose: 0 mls/hr Documented By: SOURAV Azithromycin 500 mg/ Sodium (Chloride) 250 mls @ 125 mls/hr IV Q24H [facility] Last Admin: 02/05/23 11:56 Dose: 125 mls/hr Documented By: YAKOV Insulin Glargine (Insulin Glargine,Hum.Rec.Anlog 100 Unit/Ml 10 Ml Vial) 15 unit SUBCUT DAILY [facility] Last Admin: 02/05/23 07:52 Dose: 15 unit Documented By: YAKOV Insulin Human Lispro (Insulin Lispro 100 Unit/Ml 3 Ml Vial) 0 unit SUBCUT QIDACHS [facility]; Protocol Last Admin: 02/05/23 11:47 Dose: Not Given Documented By: YAKOV Non-Admin Reason: No Insulin Coverage Ketorolac Tromethamine (Ketorolac Tromethamine 0.5% Op 5 Ml Drops) 1 drop EYE-BOTH TID [facility] Last Admin: 02/05/23 07:51 Dose: 1 drop Documented By: YAKOV Labetalol HCl (Labetalol Hcl 100 Mg/20 Ml Vial) 10 mg IVPUSH Q4H PRN PRN Reason: SBP>180 Last Admin: 02/02/23 07:43 Dose: 10 mg Documented By: KARINA Melatonin (Melatonin 3 Mg Tablet) 6 mg PO BEDTIME PRN PRN Reason: Insomnia Last Admin: 02/04/23 20:32 Dose: 6 mg Documented By: SOURAV Non-Formulary Medication (Dulaglutide [Trulicity]) 1.5 mg SUBCUT WE@0900 [facility] Ondansetron HCl (Ondansetron Hcl 4 Mg/2 Ml Vial) 4 mg IVPUSH Q8H PRN PRN Reason: Nausea and Vomiting Pharmacy Consult (Consult Rx Perform Med Rec) 1 each MISCELLANE ONCE PRN PRN Reason: Consult order Prednisolone Acetate (Prednisolone Acetate 1 % Oph Susp 5 Ml Drpbtl) 1 drop EYE-BOTH TID [facility] Last Admin: 02/05/23 07:51 Dose: 1 drop Documented By: YAKOV Sodium Chloride (0.9 % Sodium Chloride Flush 3 Ml Syringe) 3 ml IVFLUSH QSHIFT [facility] Last Admin: 02/05/23 07:51 Dose: 3 ml Documented By: YAKOV Labs 02/05/23 07:06 02/05/23 05:27 Labs: Laboratory Results - last 24 hr 02/02/23 02/02/23 02/04/23 05:31 05:31 07:59 MCV MCH MCHC RDW Plt Count MPV Absolute Nucleated RBC Nucleated RBC % (auto) Anion Gap Estim Creat Clear Calc Estimated GFR POC Glucose Random Glucose Calcium IgG Total 1175 IgA Total 466 H IgM 184 ALEJA Interpretation SEE NOTE CARA Screen NEGATIVE CARA Titer TNP CARA Titer 2 TNP CARA Titer 3 TNP CARA Pattern TNP CARA Pattern 2 TNP CARA Pattern 3 TNP Crossmatch See Detail 02/04/23 02/04/23 02/05/23 16:14 19:49 05:27 MCV MCH MCHC RDW Plt Count MPV Absolute Nucleated RBC Nucleated RBC % (auto) Anion Gap 14 Estim Creat Clear Calc 53.7 Estimated GFR 60 POC Glucose 129 H 227 H Random Glucose 151 H Calcium 7.6 L IgG Total IgA Total IgM ALEJA Interpretation CARA Screen CARA Titer CARA Titer 2 CARA Titer 3 CARA Pattern CARA Pattern 2 CARA Pattern 3 Crossmatch 02/05/23 02/05/23 02/05/23 07:06 07:10 11:07 MCV 77.9 L MCH 24.3 L MCHC 31.2 RDW 18.9 H Plt Count 319 MPV 10.3 Absolute Nucleated RBC 0.000 Nucleated RBC % (auto) 0.0 Anion Gap Estim Creat Clear Calc Estimated GFR POC Glucose 107 108 Random Glucose Calcium IgG Total IgA Total IgM ALEJA Interpretation CARA Screen CARA Titer CARA Titer 2 CARA Titer 3 CARA Pattern CARA Pattern 2 CARA Pattern 3 Crossmatch Microbiology Microbiology Results: Microbiology 02/02/23 07:53 Blood Culture - Preliminary Blood - Venous No growth after 48 hours. 02/02/23 07:54 Blood Culture - Preliminary Blood - Venous No growth after 48 hours. 02/02/23 17:35 Urine Culture - Final Urine clean catch - Urine marques top No growth. Assessment and Plan (1) Nephrotic syndrome: Status: Acute (2) Anemia: Status: Acute (3) T2DM (type 2 diabetes mellitus): Status: Acute Plan 57 year old man admitted for anasarca likely from CHF and nephrotic syndrome HFpEF with anasarca, proteinurea, nephrotic syndrome follow I&O closely s/p Albumin x4 doses echocardiogram EF 50-55%, severely dilated left atrium s/p Renal biopsy 02/02 >diabetic nephropathy. no evidence of HUS/TTP given normal platelets and no evidence of hemolysis; ANCA pending nephro following.rec lasix drip 10/hr CAP Chest x-ray showing increased interstitial markings suggestive of continued CHF with superimposed new left lower lobe infiltrate continue Rocephin and azithromycin blood cultures negative Toxic metabolic encephalopathy. Resolved Sister stated that he has not been taking any of his medication at home and this medication was resumed upon admission, after holding medications patient is much more alert and oriented, will continue to hold Cogentin, Geodon and gabapentin and any other sedating medications Elevated ddimer VQ scan neg for PE Hypertension with elevated blood pressure reading. continue coreg labetolol as needed for SBP >180 Micocytic Anemia unclear duration, no recent baseline s/p 2 units PRBC iron, TIBC and % sat all low, heme negative. no overt bleeding follow CBC Urinary retention Mosquera catheter placed, attempt voiding trial when swelling improves Diabetes type 2 hypoglycemic episode 02/03 unclear if pt compliant with meds at home, will decrease dose of lantus ss, lantus, ada diet Diabetic neuropathy gabapentin, held due to encephalopathy PAD not on asa or statin ? moderate protein calorie malnutrition added ensure to diet Parkinsons on Benztropine at home, held for encephalopathy DVT prophylaxis with heparin Attending Dr. Pleitez full code Requires continued hospital stay for tx of CHF requiring IV lasix? Time Spent With Patient Time: Total time managing care of this patient today ____ minutes. Quality Stroke Does the patient have a stroke diagnosis?: No VTE Prior VTE?: No VTE Risk Level:: Medical - moderate - high VTE Device Contraindication: N/A - Device Ordered VTE Drug Contraindication: N/A - Med Ordered
[2023-02-05 15:10] VITALS: BP 150/72; PULSE 91; RESP 15; TEMP 36.5; O2SAT 94
[2023-02-05 15:45] LABS: Glucose, Whole Blood 227 mg/dL (60-115)
[2023-02-05] MEDS: Insulin Lispro 100 UNIT/ML 3 ML VIAL SUBCUT ×2 (17:07→20:15)
[2023-02-05 19:03] VITALS: BP 138/60; PULSE 94; RESP 15; TEMP 36.3; O2SAT 96
[2023-02-05 19:55] LABS: Glucose, Whole Blood 211 mg/dL (60-115)
[2023-02-05] MEDS: Furosemide 200 MG in 0.9 % Sodium Chloride 80 ML IVCONT (20:15)
[2023-02-05] MEDS: cefTRIAXone sodium 1 GM in 0.9 % Sodium Chloride 50 ML IV (20:15)
[2023-02-05] MEDS: Melatonin 3 MG TABLET 6 MG PO (20:26)
[2023-02-05 23:06] LABS: OBS Int Ctl Valid YES; OBS1 NEGATIVE (NEGATIVE)
[2023-02-05 23:31] VITALS: BP 160/72; PULSE 96; RESP 14; TEMP 36.3; O2SAT 93
[2023-02-06] MEDS: Heparin Sodium,Porcine 5,000 UNIT/ML VIAL 5000 UNIT SUBCUT ×2 (00:30→11:30)
[2023-02-06 03:06] VITALS: BP 160/80; PULSE 90; RESP 20; TEMP 36.9; O2SAT 92
[2023-02-06 06:47] VITALS: BMI 26.5
[2023-02-06 07:08] VITALS: BP 177/81; PULSE 87; RESP 18; TEMP 36.8; O2SAT 96
[2023-02-06 07:46] LABS: Glucose, Whole Blood 151 mg/dL (60-115)
[2023-02-06] MEDS: prednisoLONE Acetate 1 % Oph Susp 5 ML DRPBTL 1 DROP EYE-BOTH ×3 (08:19→21:32)
[2023-02-06] MEDS: Insulin Lispro 100 UNIT/ML 3 ML VIAL SUBCUT ×4 (08:19→21:32)
[2023-02-06] MEDS: Ketorolac Tromethamine 0.5% Op 5 ML DROPS 1 DROP EYE-BOTH ×3 (08:19→21:32)
[2023-02-06] MEDS: Insulin Glargine,Hum.rec.anlog 100 UNIT/ML 10 ML VIAL 15 UNIT SUBCUT (08:19)
[2023-02-06] MEDS: carvediloL 3.125 MG TABLET PO ×2 (08:19→21:32)
[2023-02-06] MEDS: Aspirin Enteric Coated 81 MG TABLET.DR PO (08:19)
--- NOTE | 2023-02-06 08:39 | PM.PNNEP ---
Subjective Subjective Date of Service: 02/06/23 Interval history: seen and examined this morning; Has good urine output with lasix drip Physical Exam Vital Signs: Vital Signs: Last Vital Signs Temp 98.3 F 02/06/23 07:08 Pulse 87 02/06/23 07:08 Resp 18 02/06/23 07:08 BP 177/81 H 02/06/23 07:08 Pulse Ox 96 02/06/23 07:08 O2 Del Method 02/06/23 07:08 O2 Flow Rate 3 02/05/23 07:11 BMI result Body Mass Index 26.5 Const: General: no acute distress Orientation/consciousness: patient oriented x3 Eyes: EOM: EOMs intact bilaterally Neck: Neck: Yes supple Resp: Auscultation: diminished lung sounds Cardio: Rate: regular rate GI: Palpation (GI): Soft to palpation Neuro: General: patient oriented x3 and moves all extremities Objective Data Labs 02/05/23 07:06 02/05/23 05:27 Labs: Laboratory Results - last 24 hr 02/02/23 02/05/23 02/05/23 05:31 11:07 15:40 POC Glucose 108 227 H Stool Occult Blood CARA Titer TNP CARA Titer 2 TNP CARA Titer 3 TNP CARA Pattern TNP CARA Pattern 2 TNP CARA Pattern 3 TNP 02/05/23 02/05/23 02/06/23 19:37 21:24 07:07 POC Glucose 211 H 151 H Stool Occult Blood NEGATIVE CARA Titer CARA Titer 2 CARA Titer 3 CARA Pattern CARA Pattern 2 CARA Pattern 3 Microbiology Microbiology Results: Microbiology 02/02/23 07:53 Blood - Venous Blood Culture - Preliminary No growth after 48 hours. 02/02/23 07:54 Blood - Venous Blood Culture - Preliminary No growth after 48 hours. 02/02/23 17:35 Urine clean catch - Urine marques top Urine Culture - Final No growth. Procedures Date of Service Date of Service: 02/06/23 Assessment & Plan Assessment and plan (1) Anasarca: Status: Acute Assessment and Plan: Has Anasarca; Was Cocaine positive DDx- ? Diabetic nephropathy vs DM +/- alternate pathology W/U in progress; Some labs pending Had Renal biopsy- Likely diabetic hypertensive renal disease C/W lasix? 10 mg/hour If renal func stable, Will add ACEI today Labs AM. Shall closely F/U Time Spent With Patient Time: Total time managing care of this patient today ____ minutes. Progress Note: Quality Stroke Does the patient have a stroke diagnosis?: No
[2023-02-06 09:17] LABS: Anion Gap 13 (12-20); Blood Urea Nitrogen 34 mg/dL (9-16); Calcium 8.2 mg/dL (8.4-10.2); Carbon Dioxide 26 mmol/L (22-29); Chloride 104 mmol/L (96-108); Creatinine Clr Calc Pharmacy 50.1; Estimated Glomerular Filt Rate 55; Glucose Random 162 mg/dL (60-115); Potassium 4.2 mmol/L (3.3-5.1); Sodium 139 mmol/L (135-145)
--- NOTE | 2023-02-06 10:14 | HO.PM.IMPN ---
Subjective Subjective Date of Service: 02/06/23 Interval History: seen and examined this morning follow up for nephrotic syndrome, fluid overload, pna scrotal swelling improved, denies sob, cough Review of Systems Review of Systems: Yes all other systems are reviewed and are negative Constitutional Constitutional: Denies chills and Denies fever(s) Cardiovascular Cardiovascular: Denies chest pain, Denies palpitations and Denies dyspnea Respiratory Respiratory: Denies cough and Denies dyspnea Gastrointestinal Gastrointestinal: Denies abdominal pain Endocrine Endocrine: Denies palpitations Physical Exam Vital Signs: Vital Signs: Last Vital Signs Temp 98.3 F 02/06/23 07:08 Pulse 87 02/06/23 07:08 Resp 18 02/06/23 07:08 BP 177/81 H 02/06/23 07:08 Pulse Ox 96 02/06/23 07:08 O2 Del Method 02/06/23 07:08 O2 Flow Rate 3 02/05/23 07:11 BMI result Body Mass Index 26.5 Appearing in no acute distress lung sounds are clear to auscultation heart regular rate rhythm, clear S1, S2 positive bowel sounds, abdomen is soft, nontender neuro patient is alert x3, no focal deficits Objective Data Active Medications Acetaminophen (Acetaminophen 325 Mg Tablet) 650 mg PO Q6H PRN PRN Reason: Pain, Mild (Pain Scale 1-3) Aspirin (Aspirin Enteric Coated 81 Mg Tablet.) 81 mg PO DAILY [facility] Last Admin: 02/06/23 08:19 Dose: 81 mg Documented By: YAKOV Carvedilol (Carvedilol 3.125 Mg Tablet) 3.125 mg PO BID [facility]; Protocol Last Admin: 02/06/23 08:19 Dose: 3.125 mg Documented By: YAKOV Glucose (Glucose Gel 15 Gm Gel..Gram.) 15 gm PO Q15M PRN; Protocol PRN Reason: per Hypoglycemia Standing Ord. Heparin Sodium (Porcine) (Heparin Sodium,Porcine 5,000 Unit/Ml Vial) 5,000 unit SUBCUT Q12H [facility] Last Admin: 02/06/23 00:30 Dose: 5,000 unit Documented By: MATTIE Dextrose (D10) 250 mls @ 750 mls/hr IV Q15M PRN; Protocol PRN Reason: per Hypoglycemia Standing Ord. Last Infusion: 02/03/23 17:40 Dose: 0 mls/hr Documented By: YAKOV Ceftriaxone Sodium 1 gm/ (Sodium Chloride) 50 mls @ 100 mls/hr IV Q24H [facility] Last Infusion: 02/05/23 21:18 Dose: 0 mls/hr Documented By: FLASH Azithromycin 500 mg/ Sodium (Chloride) 250 mls @ 125 mls/hr IV Q24H [facility] Last Infusion: 02/05/23 20:09 Dose: 0 mls/hr Documented By: FLASH Furosemide 200 mg/ Sodium (Chloride) 100 mls @ 5 mls/hr IVCONT .Q20H [facility] Last Admin: 02/05/23 20:15 Dose: 10 mg/hr, 5 mls/hr Documented By: FLASH Insulin Glargine (Insulin Glargine,Hum.Rec.Anlog 100 Unit/Ml 10 Ml Vial) 15 unit SUBCUT DAILY [facility] Last Admin: 02/06/23 08:19 Dose: 15 unit Documented By: YAKOV Insulin Human Lispro (Insulin Lispro 100 Unit/Ml 3 Ml Vial) 0 unit SUBCUT QIDACHS [facility]; Protocol Last Admin: 02/06/23 08:19 Dose: 2 unit Documented By: YAKOV Ketorolac Tromethamine (Ketorolac Tromethamine 0.5% Op 5 Ml Drops) 1 drop EYE-BOTH TID [facility] Last Admin: 02/06/23 08:19 Dose: 1 drop Documented By: YAKOV Labetalol HCl (Labetalol Hcl 100 Mg/20 Ml Vial) 10 mg IVPUSH Q4H PRN PRN Reason: SBP>180 Last Admin: 02/02/23 07:43 Dose: 10 mg Documented By: KARINA Melatonin (Melatonin 3 Mg Tablet) 6 mg PO BEDTIME PRN PRN Reason: Insomnia Last Admin: 02/05/23 20:26 Dose: 6 mg Documented By: FLASH Non-Formulary Medication (Dulaglutide [Trulicity]) 1.5 mg SUBCUT WE@0900 [facility] Ondansetron HCl (Ondansetron Hcl 4 Mg/2 Ml Vial) 4 mg IVPUSH Q8H PRN PRN Reason: Nausea and Vomiting Pharmacy Consult (Consult Rx Perform Med Rec) 1 each MISCELLANE ONCE PRN PRN Reason: Consult order Prednisolone Acetate (Prednisolone Acetate 1 % Oph Susp 5 Ml Drpbtl) 1 drop EYE-BOTH TID [facility] Last Admin: 02/06/23 08:19 Dose: 1 drop Documented By: YAKOV Sodium Chloride (0.9 % Sodium Chloride Flush 3 Ml Syringe) 3 ml IVFLUSH QSHIFT [facility] Last Admin: 02/06/23 08:23 Dose: Not Given Documented By: YAKOV Non-Admin Reason: IV Running Labs 02/05/23 07:06 02/06/23 05:43 Labs: Laboratory Results - last 24 hr 02/02/23 02/05/23 02/05/23 05:31 11:07 15:40 Anion Gap Estim Creat Clear Calc Estimated GFR POC Glucose 108 227 H Random Glucose Calcium Stool Occult Blood CARA Titer TNP CARA Titer 2 TNP CARA Titer 3 TNP CARA Pattern TNP ACRA Pattern 2 TNP CARA Pattern 3 TNP 02/05/23 02/05/23 02/06/23 19:37 21:24 05:43 Anion Gap 13 Estim Creat Clear Calc 50.1 Estimated GFR 55 POC Glucose 211 H Random Glucose 162 H Calcium 8.2 L D Stool Occult Blood NEGATIVE CARA Titer CARA Titer 2 CARA Titer 3 CARA Pattern CARA Pattern 2 CARA Pattern 3 02/06/23 07:07 Anion Gap Estim Creat Clear Calc Estimated GFR POC Glucose 151 H Random Glucose Calcium Stool Occult Blood CARA Titer CARA Titer 2 CARA Titer 3 CARA Pattern CARA Pattern 2 CARA Pattern 3 Assessment and Plan (1) Nephrotic syndrome: Status: Acute (2) Anemia: Status: Acute (3) T2DM (type 2 diabetes mellitus): Status: Acute Plan 57 year old man admitted for anasarca likely from CHF and nephrotic syndrome HFpEF with anasarca, proteinurea. Edema decreasing nephrotic syndrome follow I&O closely s/p Albumin x4 doses echocardiogram EF 50-55%, severely dilated left atrium s/p Renal biopsy 02/02 >diabetic nephropathy. no evidence of HUS/TTP given normal platelets and no evidence of hemolysis; ANCA pending nephro following > lasix drip 10/hr add lisinopril 2.5 when creat improves CAP Chest x-ray showing increased interstitial markings suggestive of continued CHF with superimposed new left lower lobe infiltrate continue Rocephin and azithromycin day 4/5 blood cultures negative Toxic metabolic encephalopathy. Resolved Sister stated that he has not been taking any of his medication at home and this medication was resumed upon admission, after holding medications patient is much more alert and oriented, will continue to hold Cogentin, Geodon and gabapentin and any other sedating medications Elevated ddimer VQ scan neg for PE Hypertension with elevated blood pressure reading. continue coreg labetolol as needed for SBP >180 Micocytic Anemia unclear duration, no recent baseline s/p 2 units PRBC iron, TIBC and % sat all low, heme negative. no overt bleeding follow CBC Urinary retention Mosquera catheter placed, attempt voiding trial when swelling improves Diabetes type 2 hypoglycemic episode 02/03 unclear if pt compliant with meds at home, will decrease dose of lantus ss, lantus, ada diet Diabetic neuropathy gabapentin, held due to encephalopathy PAD not on asa or statin ? moderate protein calorie malnutrition added ensure to diet Parkinsons on Benztropine at home, held for encephalopathy DVT prophylaxis with heparin Attending Dr. Pleitez full code Requires continued hospital stay for tx of CHF requiring IV lasix? Time Spent With Patient Time: Total time managing care of this patient today ____ minutes. Quality Stroke Does the patient have a stroke diagnosis?: No VTE Prior VTE?: No VTE Risk Level:: Medical - moderate - high VTE Device Contraindication: N/A - Device Ordered VTE Drug Contraindication: N/A - Med Ordered
[2023-02-06 11:11] VITALS: BP 154/74; PULSE 82; RESP 18; TEMP 36.6; O2SAT 97
[2023-02-06 11:27] LABS: Glucose, Whole Blood 182 mg/dL (60-115)
[2023-02-06] MEDS: Azithromycin 500 MG in 0.9 % Sodium Chloride 250 ML 125 MG IV (11:44)
[2023-02-06] MEDS: cefTRIAXone sodium 1 GM in 0.9 % Sodium Chloride 50 ML IV (13:56)
[2023-02-06 14:59] VITALS: BP 158/80; PULSE 89; RESP 14; TEMP 36.5; O2SAT 97
[2023-02-06] MEDS: Furosemide 200 MG in 0.9 % Sodium Chloride 80 ML IVCONT (15:19)
[2023-02-06 16:22] LABS: Glucose, Whole Blood 304 mg/dL (60-115)
[2023-02-06 18:43] VITALS: BP 160/70; PULSE 82; RESP 16; TEMP 36.1; O2SAT 97
[2023-02-06 20:54] LABS: Glucose, Whole Blood 199 mg/dL (60-115)
[2023-02-06] MEDS: Melatonin 3 MG TABLET 6 MG PO (21:34)
[2023-02-06 23:48] VITALS: BP 147/71; PULSE 89; RESP 18; TEMP 37; O2SAT 97
[2023-02-07 03:34] VITALS: BP 168/77; PULSE 83; RESP 20; TEMP 37.1; O2SAT 99
[2023-02-07 06:00] VITALS: BMI 26.4
[2023-02-07 06:31] LABS: Anion Gap 14 (12-20); Blood Urea Nitrogen 35 mg/dL (9-16); Calcium 8.2 mg/dL (8.4-10.2); Carbon Dioxide 23 mmol/L (22-29); Chloride 105 mmol/L (96-108); Creatinine Clr Calc Pharmacy 52.4; Estimated Glomerular Filt Rate 58; Glucose Random 229 mg/dL (60-115); Potassium 4.9 mmol/L (3.3-5.1); Sodium 137 mmol/L (135-145)
[2023-02-07 07:06] VITALS: BP 164/98; PULSE 77; RESP 20; TEMP 36.2; O2SAT 99
[2023-02-07 07:31] LABS: Glucose, Whole Blood 241 mg/dL (60-115)
[2023-02-07] MEDS: carvediloL 3.125 MG TABLET PO ×2 (07:37→20:48)
[2023-02-07] MEDS: Aspirin Enteric Coated 81 MG TABLET.DR PO (07:37)
[2023-02-07] MEDS: Insulin Lispro 100 UNIT/ML 3 ML VIAL SUBCUT ×4 (07:39→20:48)
[2023-02-07] MEDS: Insulin Glargine,Hum.rec.anlog 100 UNIT/ML 10 ML VIAL 15 UNIT SUBCUT (07:40)
[2023-02-07] MEDS: Ketorolac Tromethamine 0.5% Op 5 ML DROPS 1 DROP EYE-BOTH ×3 (07:42→20:49)
[2023-02-07] MEDS: prednisoLONE Acetate 1 % Oph Susp 5 ML DRPBTL 1 DROP EYE-BOTH ×3 (07:42→20:49)
[2023-02-07] MEDS: 0.9 % Sodium Chloride Flush 3 ML SYRINGE IVFLUSH ×2 (07:43→20:49)
--- NOTE | 2023-02-07 10:25 | MHC.CM.PN ---
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
--- NOTE | 2023-02-07 10:56 | P.PNIM_ITS ---
Subjective Subjective Date of Service: 02/07/23 Interval History: seen and examined this morning follow up for nephrotic syndrome, fluid overload, pna scrotal swelling improved, denies sob, cough Review of Systems Review of Systems: Yes all other systems are reviewed and are negative Constitutional Constitutional: Denies chills and Denies fever(s) Cardiovascular Cardiovascular: Denies chest pain, Denies palpitations and Denies dyspnea Respiratory Respiratory: Denies cough and Denies dyspnea Gastrointestinal Gastrointestinal: Denies abdominal pain Endocrine Endocrine: Denies palpitations Physical Exam Vital Signs: Vital Signs: Last Vital Signs Temp 97.2 F 02/07/23 07:06 Pulse 77 02/07/23 07:06 Resp 20 02/07/23 07:06 BP 164/98 H 02/07/23 07:06 Pulse Ox 99 02/07/23 07:06 O2 Del Method 02/07/23 07:06 O2 Flow Rate 3 02/05/23 07:11 BMI result Body Mass Index 26.4 Appearing in no acute distress lung sounds are clear to auscultation heart regular rate rhythm, clear S1, S2 positive bowel sounds, abdomen is soft, nontender neuro patient is alert x3, no focal deficits Scrotal edema Objective Data Active Medications Acetaminophen (Acetaminophen 325 Mg Tablet) 650 mg PO Q6H PRN PRN Reason: Pain, Mild (Pain Scale 1-3) Aspirin (Aspirin Enteric Coated 81 Mg Tablet.Dr) 81 mg PO DAILY [facility] Last Admin: 02/07/23 07:37 Dose: 81 mg Documented By: NAEL Carvedilol (Carvedilol 3.125 Mg Tablet) 3.125 mg PO BID [facility]; Protocol Last Admin: 02/07/23 07:37 Dose: 3.125 mg Documented By: NAEL Glucose (Glucose Gel 15 Gm Gel..Gram.) 15 gm PO Q15M PRN; Protocol PRN Reason: per Hypoglycemia Standing Ord. Heparin Sodium (Porcine) (Heparin Sodium,Porcine 5,000 Unit/Ml Vial) 5,000 unit SUBCUT Q12H [facility] Last Admin: 02/07/23 02:15 Dose: Not Given Documented By: KARINA Non-Admin Reason: Patient Refused Dextrose (D10) 250 mls @ 750 mls/hr IV Q15M PRN; Protocol PRN Reason: per Hypoglycemia Standing Ord. Last Infusion: 02/03/23 17:40 Dose: 0 mls/hr Documented By: YAKOV Ceftriaxone Sodium 1 gm/ (Sodium Chloride) 50 mls @ 100 mls/hr IV Q24H [facility] Last Infusion: 02/06/23 15:24 Dose: 0 mls/hr Documented By: YAKOV Azithromycin 500 mg/ Sodium (Chloride) 250 mls @ 125 mls/hr IV Q24H [facility] Last Infusion: 02/06/23 13:57 Dose: 0 mls/hr Documented By: YAKOV Furosemide 200 mg/ Sodium (Chloride) 100 mls @ 5 mls/hr IVCONT .Q20H [facility] Last Admin: 02/07/23 06:48 Dose: Not Given Documented By: KARINA Non-Admin Reason: iv still infusing Insulin Glargine (Insulin Glargine,Hum.Rec.Anlog 100 Unit/Ml 10 Ml Vial) 15 unit SUBCUT DAILY [facility] Last Admin: 02/07/23 07:40 Dose: 15 unit Documented By: NAEL Insulin Human Lispro (Insulin Lispro 100 Unit/Ml 3 Ml Vial) 0 unit SUBCUT QIDACHS [facility]; Protocol Last Admin: 02/07/23 07:39 Dose: 4 unit Documented By: NAEL Ketorolac Tromethamine (Ketorolac Tromethamine 0.5% Op 5 Ml Drops) 1 drop EYE- BOTH TID [facility] Last Admin: 02/07/23 07:42 Dose: 1 drop Documented By: NAEL Labetalol HCl (Labetalol Hcl 100 Mg/20 Ml Vial) 10 mg IVPUSH Q4H PRN PRN Reason: SBP>180 Last Admin: 02/02/23 07:43 Dose: 10 mg Documented By: KARINA Melatonin (Melatonin 3 Mg Tablet) 6 mg PO BEDTIME PRN PRN Reason: Insomnia Last Admin: 02/06/23 21:34 Dose: 6 mg Documented By: KARINA Non-Formulary Medication (Dulaglutide [Trulicity]) 1.5 mg SUBCUT WE@0900 [facility] Ondansetron HCl (Ondansetron Hcl 4 Mg/2 Ml Vial) 4 mg IVPUSH Q8H PRN PRN Reason: Nausea and Vomiting Pharmacy Consult (Consult Rx Perform Med Rec) 1 each MISCELLANE ONCE PRN PRN Reason: Consult order Prednisolone Acetate (Prednisolone Acetate 1 % Oph Susp 5 Ml Drpbtl) 1 drop EYE-BOTH TID [facility] Last Admin: 02/07/23 07:42 Dose: 1 drop Documented By: NAEL Sodium Chloride (0.9 % Sodium Chloride Flush 3 Ml Syringe) 3 ml IVFLUSH QSHIFT [facility] Last Admin: 02/07/23 07:43 Dose: 3 ml Documented By: NAEL Labs 02/05/23 07:06 02/07/23 05:44 Labs: Laboratory Results - last 24 hr 02/06/23 02/06/23 02/06/23 11:12 16:06 20:15 Anion Gap Estim Creat Clear Calc Estimated GFR POC Glucose 182 H 304 H 199 H Random Glucose Calcium 02/07/23 02/07/23 05:44 07:08 Anion Gap 14 Estim Creat Clear Calc 52.4 Estimated GFR 58 POC Glucose 241 H Random Glucose 229 H Calcium 8.2 L Microbiology Microbiology Results: Microbiology 02/02/23 07:53 Blood Culture - Final Blood - Venous No growth after 5 days. 02/02/23 07:54 Blood Culture - Final Blood - Venous No growth after 5 days. Assessment and Plan (1) Nephrotic syndrome: Status: Acute (2) Anemia: Status: Acute (3) T2DM (type 2 diabetes mellitus): Status: Acute Plan 57 year old man admitted for anasarca likely from CHF and nephrotic syndrome HFpEF with anasarca, proteinurea. Edema decreasing nephrotic syndrome follow I&O closely s/p Albumin x4 doses echocardiogram EF 50-55%, severely dilated left atrium s/p Renal biopsy 02/02 >diabetic nephropathy. no evidence of HUS/TTP given normal platelets and no evidence of hemolysis; ANCA pending nephro following > lasix drip 10/hr add lisinopril 2.5 when creat improves Neg 20+L CAP Chest x-ray showing increased interstitial markings suggestive of continued CHF with superimposed new left lower lobe infiltrate s/p Rocephin and azithromycin blood cultures negative Toxic metabolic encephalopathy. Resolved Sister stated that he has not been taking any of his medication at home and this medication was resumed upon admission, after holding medications patient is much more alert and oriented, will continue to hold Cogentin, Geodon and gabapentin and any other sedating medications Elevated ddimer VQ scan neg for PE Hypertension with elevated blood pressure reading. continue coreg labetolol as needed for SBP >180 Micocytic Anemia unclear duration, no recent baseline s/p 2 units PRBC iron, TIBC and % sat all low, heme negative. no overt bleeding follow CBC Urinary retention Remove Mosquera catheter attempt voiding trial, bladder scan Q shift Diabetes type 2 ss, lantus, ada diet Diabetic neuropathy gabapentin, held due to encephalopathy PAD not on asa or statin ? moderate protein calorie malnutrition added ensure to diet Parkinsons on Benztropine at home, held for encephalopathy DVT prophylaxis with heparin Attending Dr. White full code Requires continued hospital stay for tx of CHF requiring IV lasix? Time Spent With Patient Time: Total time managing care of this patient today ____ minutes. Quality Stroke Does the patient have a stroke diagnosis?: No VTE Prior VTE?: No VTE Risk Level:: Medical - moderate - high VTE Device Contraindication: N/A - Device Ordered VTE Drug Contraindication: N/A - Med Ordered
--- NOTE | 2023-02-07 10:56 | PM.PNNEP ---
Subjective Subjective Date of Service: 02/07/23 Interval history: Events noted Feels better today Physical Exam Vital Signs: Vital Signs: Last Vital Signs Temp 97.2 F 02/07/23 07:06 Pulse 77 02/07/23 07:06 Resp 20 02/07/23 07:06 BP 164/98 H 02/07/23 07:06 Pulse Ox 99 02/07/23 07:06 O2 Del Method 02/07/23 07:06 O2 Flow Rate 3 02/05/23 07:11 BMI result Body Mass Index 26.4 Const: General: no acute distress Orientation/consciousness: patient oriented x3 Eyes: EOM: EOMs intact bilaterally Neck: Neck: Yes supple Resp: Auscultation: diminished lung sounds Cardio: Rate: regular rate GI: Palpation (GI): Soft to palpation Neuro: General: patient oriented x3 and moves all extremities Extrem: Other: Edema Objective Data Labs 02/05/23 07:06 02/07/23 05:44 Labs: Laboratory Results - last 24 hr 02/06/23 02/06/23 02/06/23 11:12 16:06 20:15 Sodium Potassium Chloride Carbon Dioxide Anion Gap BUN Creatinine Estim Creat Clear Calc Estimated GFR POC Glucose 182 H 304 H 199 H Random Glucose Calcium 02/07/23 02/07/23 05:44 07:08 Sodium 137 Potassium 4.9 Chloride 105 Carbon Dioxide 23 Anion Gap 14 BUN 35 H Creatinine 1.28 Estim Creat Clear Calc 52.4 Estimated GFR 58 POC Glucose 241 H Random Glucose 229 H Calcium 8.2 L Microbiology Microbiology Results: Microbiology 02/02/23 07:53 Blood - Venous Blood Culture - Final No growth after 5 days. 02/02/23 07:54 Blood - Venous Blood Culture - Final No growth after 5 days. 02/02/23 17:35 Urine clean catch - Urine marques top Urine Culture - Final No growth. Procedures Date of Service Date of Service: 02/07/23 Assessment & Plan Assessment and plan (1) Anasarca: Status: Acute Assessment and Plan: KWAME in a setting of Cirrhosis Has Anasarca; Was Cocaine positive DDx- ? Diabetic nephropathy vs DM +/- alternate pathology W/U in progress; Had Renal biopsy- diabetic Nephropathy Superimposed Microscopic angiopathy /TMA cannot be ruled out yet. EM pending C/W lasix? 10 mg/hour and O > I If renal func stable, Can DC greco Time Spent With Patient Time: Total time managing care of this patient today ____ minutes. Progress Note: Quality Stroke Does the patient have a stroke diagnosis?: No
[2023-02-07 10:58] VITALS: BP 167/88; PULSE 77; RESP 20; TEMP 36.3; O2SAT 100
[2023-02-07 11:29] LABS: Glucose, Whole Blood 259 mg/dL (60-115)
[2023-02-07 12:19] LABS: Amphetamine Screen Urine Not Detected (Not Detect); Barbiturates, Urine Not Detected (Not Detect); Benzodiazepines Screen Urine Not Detected (Not Detect); Cannabinoid Screen Urine Not Detected (Not Detect); Cocaine Screen Urine Not Detected (Not Detect); Fentanyl, urine Not Detected (Not Detect); Opiate Screen Urine Not Detected (Not Detect); Phencyclidine Screen Urine Not Detected (Not Detect)
[2023-02-07] MEDS: Heparin Sodium,Porcine 5,000 UNIT/ML VIAL 5000 UNIT SUBCUT ×2 (12:55→23:39)
[2023-02-07] MEDS: cefTRIAXone sodium 1 GM in 0.9 % Sodium Chloride 50 ML IV (13:07)
[2023-02-07] MEDS: Azithromycin 500 MG in 0.9 % Sodium Chloride 250 ML 125 MG IV (13:47)
[2023-02-07 15:12] VITALS: BP 151/89; PULSE 81; RESP 18; TEMP 37.1; O2SAT 100
[2023-02-07 16:02] LABS: Glucose, Whole Blood 238 mg/dL (60-115)
[2023-02-07 20:00] VITALS: BP 171/80; PULSE 98; RESP 18; TEMP 37.1; O2SAT 98
[2023-02-07 20:31] LABS: Glucose, Whole Blood 438 mg/dL (60-115)
[2023-02-07] MEDS: Melatonin 3 MG TABLET 6 MG PO (20:48)
[2023-02-08] VITALS (7 sets, daily range): BP systolic 141–182; BP diastolic 66–84; PULSE 57–94; RESP 14–20; TEMP 36.3–36.7; O2SAT 96–99
[2023-02-08] MEDS: Furosemide 200 MG in 0.9 % Sodium Chloride 80 ML IVCONT (00:56)
[2023-02-08 06:45] LABS: Anion Gap 14 (12-20); Blood Urea Nitrogen 41 mg/dL (9-16); Calcium 8.3 mg/dL (8.4-10.2); Carbon Dioxide 24 mmol/L (22-29); Chloride 103 mmol/L (96-108); Creatinine Clr Calc Pharmacy 45.6; Estimated Glomerular Filt Rate 50; Glucose Random 288 mg/dL (60-115); Potassium 4.6 mmol/L (3.3-5.1); Sodium 136 mmol/L (135-145)
[2023-02-08 07:13] LABS: Glucose, Whole Blood 239 mg/dL (60-115)
[2023-02-08] MEDS: Insulin Glargine,Hum.rec.anlog 100 UNIT/ML 10 ML VIAL 15 UNIT SUBCUT (07:45)
[2023-02-08] MEDS: Insulin Lispro 100 UNIT/ML 3 ML VIAL SUBCUT ×4 (07:45→20:11)
[2023-02-08] MEDS: Aspirin Enteric Coated 81 MG TABLET.DR PO (07:46)
[2023-02-08] MEDS: 0.9 % Sodium Chloride Flush 3 ML SYRINGE IVFLUSH ×3 (07:47→20:11)
[2023-02-08] MEDS: Ketorolac Tromethamine 0.5% Op 5 ML DROPS 1 DROP EYE-BOTH ×3 (07:47→20:11)
[2023-02-08] MEDS: prednisoLONE Acetate 1 % Oph Susp 5 ML DRPBTL 1 DROP EYE-BOTH ×3 (07:47→20:11)
[2023-02-08] MEDS: carvediloL 3.125 MG TABLET PO ×2 (07:57→20:11)
--- NOTE | 2023-02-08 11:09 | P.PNIM_ITS ---
Subjective Subjective Date of Service: 02/08/23 Interval History: seen and examined this morning follow up for nephrotic syndrome, fluid overload, pna scrotal swelling improved, denies sob, cough Review of Systems Review of Systems: Yes all other systems are reviewed and are negative Constitutional Constitutional: Denies chills and Denies fever(s) Cardiovascular Cardiovascular: Denies chest pain, Denies palpitations and Denies dyspnea Respiratory Respiratory: Denies cough and Denies dyspnea Gastrointestinal Gastrointestinal: Denies abdominal pain Endocrine Endocrine: Denies palpitations Physical Exam Vital Signs: Vital Signs: Last Vital Signs Temp 98.0 F 02/08/23 06:59 Pulse 78 02/08/23 06:59 Resp 20 02/08/23 06:59 BP 168/80 H 02/08/23 06:59 Pulse Ox 99 02/08/23 06:59 O2 Del Method 02/08/23 06:59 O2 Flow Rate 3 02/05/23 07:11 BMI result Body Mass Index 26.4 Appearing in no acute distress lung sounds are clear to auscultation heart regular rate rhythm, clear S1, S2 positive bowel sounds, abdomen is soft, nontender neuro patient is alert x3, no focal deficits LE and scrtial edema improving Objective Data Active Medications Acetaminophen (Acetaminophen 325 Mg Tablet) 650 mg PO Q6H PRN PRN Reason: Pain, Mild (Pain Scale 1-3) Aspirin (Aspirin Enteric Coated 81 Mg Tablet.) 81 mg PO DAILY [facility] Last Admin: 02/08/23 07:46 Dose: 81 mg Documented By: NAEL Carvedilol (Carvedilol 3.125 Mg Tablet) 3.125 mg PO BID [facility]; Protocol Last Admin: 02/08/23 07:57 Dose: 3.125 mg Documented By: NAEL Glucose (Glucose Gel 15 Gm Gel..Gram.) 15 gm PO Q15M PRN; Protocol PRN Reason: per Hypoglycemia Standing Ord. Heparin Sodium (Porcine) (Heparin Sodium,Porcine 5,000 Unit/Ml Vial) 5,000 unit SUBCUT Q12H [facility] Last Admin: 02/07/23 23:39 Dose: 5,000 unit Documented By: PATT Dextrose (D10) 250 mls @ 750 mls/hr IV Q15M PRN; Protocol PRN Reason: per Hypoglycemia Standing Ord. Last Infusion: 02/03/23 17:40 Dose: 0 mls/hr Documented By: YAKOV Furosemide 200 mg/ Sodium (Chloride) 100 mls @ 5 mls/hr IVCONT .Q20H [facility] Last Admin: 02/08/23 00:56 Dose: 10 mg/hr, 5 mls/hr Documented By: PATT Insulin Glargine (Insulin Glargine,Hum.Rec.Anlog 100 Unit/Ml 10 Ml Vial) 15 unit SUBCUT DAILY [facility] Last Admin: 02/08/23 07:45 Dose: 15 unit Documented By: NAEL Insulin Human Lispro (Insulin Lispro 100 Unit/Ml 3 Ml Vial) 0 unit SUBCUT QIDACHS [facility]; Protocol Last Admin: 02/08/23 07:45 Dose: 4 unit Documented By: NAEL Ketorolac Tromethamine (Ketorolac Tromethamine 0.5% Op 5 Ml Drops) 1 drop EYE- BOTH TID [facility] Last Admin: 02/08/23 07:47 Dose: 1 drop Documented By: NAEL Labetalol HCl (Labetalol Hcl 100 Mg/20 Ml Vial) 10 mg IVPUSH Q4H PRN PRN Reason: SBP>180 Last Admin: 02/02/23 07:43 Dose: 10 mg Documented By: KARINA Melatonin (Melatonin 3 Mg Tablet) 6 mg PO BEDTIME PRN PRN Reason: Insomnia Last Admin: 02/07/23 20:48 Dose: 6 mg Documented By: PATT Ondansetron HCl (Ondansetron Hcl 4 Mg/2 Ml Vial) 4 mg IVPUSH Q8H PRN PRN Reason: Nausea and Vomiting Pharmacy Consult (Consult Rx Perform Med Rec) 1 each MISCELLANE ONCE PRN PRN Reason: Consult order Prednisolone Acetate (Prednisolone Acetate 1 % Oph Susp 5 Ml Drpbtl) 1 drop EYE-BOTH TID [facility] Last Admin: 02/08/23 07:47 Dose: 1 drop Documented By: NAEL Sodium Chloride (0.9 % Sodium Chloride Flush 3 Ml Syringe) 3 ml IVFLUSH QSHIFT [facility] Last Admin: 02/08/23 07:47 Dose: 3 ml Documented By: NAEL Labs 02/05/23 07:06 02/08/23 05:46 Labs: Laboratory Results - last 24 hr 02/07/23 02/07/23 02/07/23 11:01 11:15 15:10 Anion Gap Estim Creat Clear Calc Estimated GFR POC Glucose 259 H 238 H Random Glucose Calcium Urine Opiates Screen Not Detected Urine Fentanyl Screen Not Detected Ur Barbiturates Screen Not Detected Ur Phencyclidine Scrn Not Detected Ur Amphetamines Screen Not Detected U Benzodiazepines Scrn Not Detected Urine Cocaine Screen Not Detected U Marijuana (THC) Screen Not Detected 02/07/23 02/08/23 02/08/23 20:24 05:46 07:02 Anion Gap 14 Estim Creat Clear Calc 45.6 Estimated GFR 50 POC Glucose 438 H* 239 H Random Glucose 288 H Calcium 8.3 L Urine Opiates Screen Urine Fentanyl Screen Ur Barbiturates Screen Ur Phencyclidine Scrn Ur Amphetamines Screen U Benzodiazepines Scrn Urine Cocaine Screen U Marijuana (THC) Screen Microbiology Microbiology Results: Microbiology 02/02/23 07:53 Blood Culture - Final Blood - Venous No growth after 5 days. 02/02/23 07:54 Blood Culture - Final Blood - Venous No growth after 5 days. Assessment and Plan (1) Nephrotic syndrome: Status: Acute (2) Anemia: Status: Acute (3) T2DM (type 2 diabetes mellitus): Status: Acute Plan 57 year old man admitted for anasarca likely from CHF and nephrotic syndrome Diabetic nephropathy, HFpEF with anasarca, proteinurea. Edema decreasing nephrotic syndrome follow I&O closely s/p Albumin x4 doses echocardiogram EF 50-55%, severely dilated left atrium s/p Renal biopsy 02/02 >diabetic nephropathy. no evidence of HUS/TTP given normal platelets and no evidence of hemolysis; ANCA pending nephro following > s/p lasix drip 10/hr, change to BID add lisinopril 2.5 when creat improves Neg 20+L CAP Chest x-ray showing increased interstitial markings suggestive of continued CHF with superimposed new left lower lobe infiltrate s/p Rocephin and azithromycin blood cultures negative Toxic metabolic encephalopathy. Resolved Sister stated that he has not been taking any of his medication at home and this medication was resumed upon admission, after holding medications patient is much more alert and oriented, will continue to hold Cogentin, Geodon and gabapentin and any other sedating medications Elevated ddimer VQ scan neg for PE Hypertension with elevated blood pressure reading. continue coreg labetolol as needed for SBP >180 Micocytic Anemia unclear duration, no recent baseline s/p 2 units PRBC iron, TIBC and % sat all low, heme negative. no overt bleeding follow CBC Urinary retention Remove Mosquera catheter attempt voiding trial, bladder scan Q shift Diabetes type 2 ss, lantus, ada diet Diabetic neuropathy gabapentin, held due to encephalopathy PAD not on asa or statin ? moderate protein calorie malnutrition added ensure to diet Parkinsons on Benztropine at home, held for encephalopathy DVT prophylaxis with heparin Attending Dr. White full code Requires continued hospital stay for tx of CHF requiring IV lasix? Time Spent With Patient Time: Total time managing care of this patient today ____ minutes. Quality Stroke Does the patient have a stroke diagnosis?: No VTE Prior VTE?: No VTE Risk Level:: Medical - moderate - high VTE Device Contraindication: N/A - Device Ordered VTE Drug Contraindication: N/A - Med Ordered
--- NOTE | 2023-02-08 11:17 | PM.PNNEP ---
Subjective Subjective Date of Service: 02/09/23 Interval history: Events noted.Feels better Physical Exam Vital Signs: Vital Signs: Last Vital Signs Temp 98.0 F 02/08/23 06:59 Pulse 78 02/08/23 06:59 Resp 20 02/08/23 06:59 BP 168/80 H 02/08/23 06:59 Pulse Ox 99 02/08/23 06:59 O2 Del Method 02/08/23 06:59 O2 Flow Rate 3 02/05/23 07:11 BMI result Body Mass Index 26.4 Const: General: no acute distress Orientation/consciousness: patient oriented x3 Eyes: EOM: EOMs intact bilaterally Neck: Neck: Yes supple Resp: Auscultation: diminished lung sounds Cardio: Rate: regular rate GI: Palpation (GI): Soft to palpation Neuro: General: patient oriented x3 and moves all extremities Extrem: Other: Edema Objective Data Labs 02/05/23 07:06 02/08/23 05:46 Labs: Laboratory Results - last 24 hr 02/07/23 02/07/23 02/07/23 11:01 11:15 15:10 Sodium Potassium Chloride Carbon Dioxide Anion Gap BUN Creatinine Estim Creat Clear Calc Estimated GFR POC Glucose 259 H 238 H Random Glucose Calcium Urine Opiates Screen Not Detected Urine Fentanyl Screen Not Detected Ur Barbiturates Screen Not Detected Ur Phencyclidine Scrn Not Detected Ur Amphetamines Screen Not Detected U Benzodiazepines Scrn Not Detected Urine Cocaine Screen Not Detected U Marijuana (THC) Screen Not Detected 02/07/23 02/08/23 02/08/23 20:24 05:46 07:02 Sodium 136 Potassium 4.6 Chloride 103 Carbon Dioxide 24 Anion Gap 14 BUN 41 H Creatinine 1.47 H Estim Creat Clear Calc 45.6 Estimated GFR 50 POC Glucose 438 H* 239 H Random Glucose 288 H Calcium 8.3 L Urine Opiates Screen Urine Fentanyl Screen Ur Barbiturates Screen Ur Phencyclidine Scrn Ur Amphetamines Screen U Benzodiazepines Scrn Urine Cocaine Screen U Marijuana (THC) Screen Microbiology Microbiology Results: Microbiology 02/02/23 07:53 Blood - Venous Blood Culture - Final No growth after 5 days. 02/02/23 07:54 Blood - Venous Blood Culture - Final No growth after 5 days. 02/02/23 17:35 Urine clean catch - Urine marques top Urine Culture - Final No growth. Procedures Date of Service Date of Service: 02/08/23 Assessment & Plan Assessment and plan (1) Anasarca: Status: Acute Assessment and Plan: KWAME in a setting of Cirrhosis Has Anasarca; Was Cocaine positive DDx- ? Diabetic nephropathy vs DM +/- alternate pathology W/U in progress; Had Renal biopsy- diabetic Nephropathy Superimposed Microscopic angiopathy /TMA cannot be ruled out yet. EM pending C/W lasix? 40 IV BID and O > I Time Spent With Patient Time: Total time managing care of this patient today ____ minutes. Progress Note: Quality Stroke Does the patient have a stroke diagnosis?: No
[2023-02-08 11:35] LABS: Glucose, Whole Blood 295 mg/dL (60-115)
[2023-02-08] MEDS: Heparin Sodium,Porcine 5,000 UNIT/ML VIAL 5000 UNIT SUBCUT ×2 (12:37→23:14)
[2023-02-08 15:57] LABS: Glucose, Whole Blood 276 mg/dL (60-115)
[2023-02-08] MEDS: Furosemide 40 MG/4 ML VIAL IVPUSH (20:11)
[2023-02-08] MEDS: Melatonin 3 MG TABLET 6 MG PO (20:11)
[2023-02-08 20:23] LABS: Glucose, Whole Blood 403 mg/dL (60-115)
[2023-02-09 03:28] VITALS: BP 158/84; PULSE 83; RESP 20; TEMP 36.3; O2SAT 99
[2023-02-09 05:47] VITALS: BMI 24.0
[2023-02-09 06:47] LABS: Anion Gap 14 (12-20); Blood Urea Nitrogen 42 mg/dL (9-16); Carbon Dioxide 22 mmol/L (22-29); Chloride 104 mmol/L (96-108); Creatinine Clr Calc Pharmacy 43.6; Estimated Glomerular Filt Rate 47; Glucose Random 315 mg/dL (60-115); Potassium 4.7 mmol/L (3.3-5.1); Sodium 135 mmol/L (135-145)
[2023-02-09 07:06] VITALS: BP 142/60; PULSE 79; RESP 16; TEMP 36.6; O2SAT 98
[2023-02-09 07:22] LABS: Glucose, Whole Blood 245 mg/dL (60-115)
[2023-02-09] MEDS: Furosemide 40 MG/4 ML VIAL IVPUSH (08:14)
[2023-02-09] MEDS: Aspirin Enteric Coated 81 MG TABLET.DR PO (08:15)
[2023-02-09] MEDS: carvediloL 3.125 MG TABLET PO (08:15)
[2023-02-09] MEDS: Insulin Lispro 100 UNIT/ML 3 ML VIAL SUBCUT (08:16)
[2023-02-09] MEDS: Insulin Glargine,Hum.rec.anlog 100 UNIT/ML 10 ML VIAL 15 UNIT SUBCUT (08:17)
[2023-02-09] MEDS: prednisoLONE Acetate 1 % Oph Susp 5 ML DRPBTL 1 DROP EYE-BOTH (08:18)
[2023-02-09] MEDS: Ketorolac Tromethamine 0.5% Op 5 ML DROPS 1 DROP EYE-BOTH (08:18)
[2023-02-09] MEDS: 0.9 % Sodium Chloride Flush 3 ML SYRINGE IVFLUSH (08:19)
--- NOTE | 2023-02-09 09:15 | MHC.CM.PN ---
Per MANAGER INPATIENT, Patient is not yet medically cleared for dc. Patient was changed to BID Lasix yesterday. Home/resume NETWORK OPERATIONS SPECIALIST is the goal and CM will continue to follow.
--- NOTE | 2023-02-09 10:16 | P.CDIM_ITS ---
PROVIDER RESPONSE TEXT: To clarify, the appropriate diagnosis supported by the clinical indicators: Hyperglycemia QUERY TEXT: PHYSICIAN'S DOCUMENTATION REQUEST Date of Query: 02/09/2023 08:49 AM EDT Patient Name: Yao Rivera Admit Date: 01/31/2023 Dear Kenisha Crenshaw, A review of the medical record indicates additional documentation may be needed. Please review below and update the documentation accordingly. Is there a diagnosis that correlates with the findings below: Clinical Indicators: POC on 02/06 304 POC on 02/07 438 POC on 02/08 403 Medications: Lantus 15 units sq daily Humalog sq qid achs Please clarify the following regarding the patient's diabetes mellitus (DM): Hyperglycemia Other Other (explain) Clinically unable to determine (explain) Thank you, Keely Levine MS, RN, CCRN Use of terms such as suspected, likely, concern for, or probable (associated with a specific diagnosi s that is being evaluated, monitored, or treated as if it exists) are acceptable and can be coded in the inpatient se tting, when documented at the time of discharge. Please use your independent medical judgment in providing your response. THIS QUERY IS PART OF THE PERMANENT MEDICAL RECORD
--- NOTE | 2023-02-09 10:34 | PM.PNNEP ---
Subjective Subjective Date of Service: 02/09/23 Interval history: Events noted.Feels better Physical Exam Vital Signs: Vital Signs: Last Vital Signs Temp 97.9 F 02/09/23 07:06 Pulse 79 02/09/23 07:06 Resp 16 02/09/23 07:06 BP 142/60 H 02/09/23 07:06 Pulse Ox 98 02/09/23 07:06 O2 Del Method 02/09/23 07:06 O2 Flow Rate 3 02/05/23 07:11 BMI result Body Mass Index 24.0 Const: General: no acute distress Orientation/consciousness: patient oriented x3 Eyes: EOM: EOMs intact bilaterally Neck: Neck: Yes supple Resp: Auscultation: diminished lung sounds Cardio: Rate: regular rate GI: Palpation (GI): Soft to palpation Neuro: General: patient oriented x3 and moves all extremities Extrem: Other: Edema Objective Data Labs 02/05/23 07:06 02/09/23 06:04 Labs: Laboratory Results - last 24 hr 02/08/23 02/08/23 02/08/23 11:15 15:07 19:59 Sodium Potassium Chloride Carbon Dioxide Anion Gap BUN Creatinine Estim Creat Clear Calc Estimated GFR POC Glucose 295 H 276 H 403 H* Random Glucose Calcium 02/09/23 02/09/23 06:04 07:05 Sodium 135 Potassium 4.7 Chloride 104 Carbon Dioxide 22 Anion Gap 14 BUN 42 H Creatinine 1.54 H Estim Creat Clear Calc 43.6 Estimated GFR 47 POC Glucose 245 H Random Glucose 315 H Calcium 8.0 L Microbiology Microbiology Results: Microbiology 02/02/23 07:53 Blood - Venous Blood Culture - Final No growth after 5 days. 02/02/23 07:54 Blood - Venous Blood Culture - Final No growth after 5 days. 02/02/23 17:35 Urine clean catch - Urine marques top Urine Culture - Final No growth. Procedures Date of Service Date of Service: 02/09/23 Assessment & Plan Assessment and plan (1) Anasarca: Status: Acute Assessment and Plan: KWAME in a setting of Cirrhosis Has Anasarca; Was Cocaine positive DDx- ? Diabetic nephropathy vs DM +/- alternate pathology W/U in progress; Had Renal biopsy- diabetic Nephropathy Superimposed Microscopic angiopathy /TMA cannot be ruled out yet. EM pending C/W lasix? and O > I OK to DC Will arrange for OP follow up Time Spent With Patient Time: Total time managing care of this patient today ____ minutes. Progress Note: Quality Stroke Does the patient have a stroke diagnosis?: No
--- NOTE | 2023-02-09 10:59 | P.CDIM_ITS ---
PROVIDER RESPONSE TEXT: To clarify, the appropriate diagnosis supported by the clinical indicators: Acute kidney injury QUERY TEXT: PHYSICIAN'S DOCUMENTATION REQUEST Date of Query: 02/09/2023 08:53 AM EDT Patient Name: Yao Rivera Admit Date: 01/31/2023 Dear Kenisha Crenshaw, A review of the medical record indicates additional documentation may be needed. Please review below and update the documentation accordingly. Is there a diagnosis that correlates with the findings below: Clinical Indicators: Per nephrology consults: KWAME in a setting of Cirrhosis Per senior underwriting assistant and output assessments: Patient with decreased urine output since admission. Labs: BUN: 02/08 - 02/09 Creatinine: 02/08 - .47 02/09 - .54 Please clarify which of the following accurately represents the patient's renal status: Acute kidney injury Other Other (explain) Clinically unable to determine (explain) Thank you, Keely Levine MS, RN, CCRN Use of terms such as suspected, likely, concern for, or probable (associated with a specific diagnosi s that is being evaluated, monitored, or treated as if it exists) are acceptable and can be coded in the inpatient se tting, when documented at the time of discharge. Please use your independent medical judgment in providing your response. THIS QUERY IS PART OF THE PERMANENT MEDICAL RECORD
[2023-02-09 11:13] LABS: Glucose, Whole Blood 97 mg/dL (60-115)
[2023-02-09 11:20] VITALS: BP 137/66; PULSE 77; RESP 16; O2SAT 99
--- NOTE | 2023-02-09 11:21 | PM.DS ---
DS: Providers Provider Date of Service: 02/09/23 Date of admission: 01/31/23 12:49 Primary care physician: Allison Montilla MD Consults: 01/31/23 12:10 Consult to Nephrology Routine Consulting Provider: Quang Cantu Reason for consultation: nephrotic syndrome Has provider been notified: No Attending physician on discharge: Ian White Discharging clinician: Kenisha Crenshaw DS: Diagnosis Discharge Diagnosis (1) Anasarca: Status: Acute DS: Summary Hospital Course Hospital Course: 57 year old man presenting with testicular and extremity swelling that started yesterday. He denied pain, fever, chills, SOB, chest pain,? open wound or trauma. He reports that he wasnt able to sleep last night. He denied any history of anasarca or heart failure in the past and does not follow with a medical office administrator or medical record consultant. He lives alone but has some help at home. He reported compliance with all medications and is not on diuretics at home. His blood pressure was noted to be elevated and no fever, noted leukocytosis of 13.0, HH 7.3/23.6. CXR noted for interstitial prominence and Carlos B lines. He receieved IV lasix, oxycodone, Labetolol and amlodipine in the ED. He will be admitted for further management and treatment of anasarca Diabetic nephropathy, HFpEF with anasarca, proteinurea. TMA not excluded, still pending ([facility] send out) s/p Albumin x4 doses echocardiogram EF 50-55%, severely dilated left atrium CARA neg, Hep C reactive nephro following > s/p lasix drip 10/hr, change to BID. Home with Lasix 20mg BID Neg 20+L CAP Chest x-ray showing increased interstitial markings suggestive of continued CHF with superimposed new left lower lobe infiltrate s/p Rocephin and azithromycin blood cultures negative Toxic metabolic encephalopathy.? Resolved Sister stated that he has not been taking any of his medication at home and this medication was resumed upon admission, after holding medications patient is much more alert and oriented, will continue to hold Cogentin, Geodon and gabapentin and any other sedating medications Hypertension with elevated blood pressure reading. Better controlled continue coreg BID Micocytic Anemia unclear duration, no recent baseline s/p 2 units PRBC Urinary retention. secondary to scrotal anasarca Mosquera catheter for a few days, removed and patient able to urinate with no issue Diabetes type 2 ss, lantus, ada diet Diabetic neuropathy, parkinsons disease medications held due to encephalopathy follow up with PCP to determine whether any of the following medications should be continued, family stated that the patient has not been taking prior to admission: -benztropine -gabapentin -Geodon -ramelteon PAD not on asa or statin ? moderate protein calorie malnutrition add protein to diet Time Spent with Patient Time attestation: Total time managing care of this patient today ____ minutes. Discharge coordination time: Greater than 30 minutes Quality: Safe Use of Opioids Does Pt have an Active Cancer Diagnosis on the Problem List?: No Quality: Stroke Does the patient have a stroke diagnosis?: No Physical Exam Vital Signs: Vital Signs: Last Vital Signs Temp 97.9 F 02/09/23 07:06 Pulse 79 02/09/23 07:06 Resp 16 02/09/23 07:06 BP 142/60 H 02/09/23 07:06 Pulse Ox 98 02/09/23 07:06 O2 Del Method 02/09/23 07:06 O2 Flow Rate 3 02/05/23 07:11 BMI result Body Mass Index 24.0 Appearing in no acute distress head is normocephalic atraumatic eyes pupils are PERRLA sclera is anicteric mouth throat mucous membranes are intact and moist neck is supple no lymphadenopathy, no JVD noted lung sounds are clear to auscultation heart regular rate rhythm, clear S1, S2 positive bowel sounds, abdomen is soft, nontender neuro patient is alert x3, no focal deficits DS: Data Data Completed and Pending Completed studies during hospitalization [Text1]: Pending at discharge 02/02/23 12:04 Surgical Path [Surgical] [PTH] Routine Labs on day of discharge: Laboratory Results - last 24 hr 02/08/23 02/08/23 02/08/23 11:15 15:07 19:59 Sodium Potassium Chloride Carbon Dioxide Anion Gap BUN Creatinine Estim Creat Clear Calc Estimated GFR POC Glucose 295 H 276 H 403 H* Random Glucose Calcium 02/09/23 02/09/23 02/09/23 06:04 07:05 11:03 Sodium 135 Potassium 4.7 Chloride 104 Carbon Dioxide 22 Anion Gap 14 BUN 42 H Creatinine 1.54 H Estim Creat Clear Calc 43.6 Estimated GFR 47 POC Glucose 245 H 97 Random Glucose 315 H Calcium 8.0 L Discharge Plan Discharge Anticipated Discharge Date/Time: 02/09/23 11:13 Patient Disposition: Home, Self-Care Discharge Diagnosis: Diabetic Nephropathy Superimposed microscopic angiopathy possibly TMA Anasarca Heart failure with preserved ejection fraction Community-acquired pneumonia toxic metabolic encephalopathy hypertension with elevated blood pressure readings Urinary retention Microcytic anemia Moderate protein calorie malnutrition Referrals: Allison Etienne MD [Primary Care Provider] - 1 Week Quang Cantu MD [Physician] - 1 Week Discharge Medications: New carvedilol 3.125 mg Tablet 3.125 mg PO BID Qty: 60 0RF Protocol: Hold for SBP/HR < HOLD for SBP < : 90 HOLD for HR < : 60 furosemide [Lasix] 20 mg tablet 20 mg PO BID Qty: 60 0RF Continued ketorolac 0.5 % drops 1 drp ophthalmic (eye) TID prednisolone acetate 1 % drops,suspension 1 drp ophthalmic (eye) TID metformin 1,000 mg tablet 1,000 mg PO BID Trulicity 1.5 mg/0.5 mL pen injector 1.5 mg subcut [id number] Lantus Solostar U-100 Insulin 100 unit/mL (3 mL) insulin pen 31 unit subcut DAILY insulin lispro [Humalog KwikPen Insulin] 100 unit/mL insulin pen 12 unit subcut TIDAC Discontinued benztropine 0.5 mg tablet 0.5 mg PO DAILY gabapentin 800 mg tablet 800 mg PO BID ziprasidone HCl 60 mg capsule 60 mg PO BID ramelteon 8 mg tablet 8 mg PO BEDTIME PRN (Reason: Sleep) Discharge Orders: Discharge Order (Routine); Ordered 02/09/23 Ordered By: Kenisha Crenshaw Diet: Advance to usual diet Activity on Discharge: As tolerated Stand Alone Forms: Patient Portal Discharge page Care Plan Goals: Take medications to control your blood pressure and diabetes follow-up with medical record consultant, schedule appointment within 1 week Health Concerns: Diabetic Nephropathy Superimposed microscopic angiopathy possibly TMA Anasarca Heart failure with preserved ejection fraction Community-acquired pneumonia toxic metabolic encephalopathy hypertension with elevated blood pressure readings Urinary retention Microcytic anemia Moderate protein calorie malnutrition Plan of Treatment: Follow up with primary care provider to manage home medications Take all medications as prescribed Assessment: see discharge summary
--- NOTE | 2023-02-09 11:48 | MHC.CM.PN ---
Patient has been medically cleared for dc to home today, self care.Patient's SENIOR OFFICE ASSISTANT services should resume as before. CM met with Patient at bedside and addressed IMM with him, providing him with the original and placing a copy on the chart. Patient's Sister will provide transportation to home.
== END 2023-02-09 12:30 | disposition home or self-care (01) | DRG 698 ==
LOC: HO.ED 06:11 → HO.EDOVER 11:13 → HO.IMC 13:03
PROVIDERS: Internal Medicine Nephrology; Physician Assistant Medical; Radiology Diagnostic Radiology; Student in an Organized Health Care Education/Training Program; Admitting Provider Nurse Practitioner Acute Care; Emergency Provider Emergency Medicine; PCP Internal Medicine; Visit Provider Nurse Practitioner Acute Care
PROC: 0TB03ZX Excision of Right Kidney, Percutaneous Approach, Diagnostic (ICD-10-PCS; principal; 2023-02-02 10:30)
DX: E11.21 Type 2 diabetes mellitus with diabetic nephropathy (principal); G92.8 Other toxic encephalopathy; J18.9 Pneumonia, unspecified organism; I50.31 Acute diastolic (congestive) heart failure; M31.10 Thrombotic microangiopathy, unspecified; E44.0 Moderate protein-calorie malnutrition; R65.10 Systemic inflammatory response syndrome (SIRS) of non-infectious origin without acute organ dysfunction; I11.0 Hypertensive heart disease with heart failure; N17.9 Acute kidney failure, unspecified; E11.42 Type 2 diabetes mellitus with diabetic polyneuropathy; E78.5 Hyperlipidemia, unspecified; R33.9 Retention of urine, unspecified; D50.9 Iron deficiency anemia, unspecified; E11.649 Type 2 diabetes mellitus with hypoglycemia without coma; K74.60 Unspecified cirrhosis of liver; E11.65 Type 2 diabetes mellitus with hyperglycemia; E11.51 Type 2 diabetes mellitus with diabetic peripheral angiopathy without gangrene; G20 Parkinson's disease; Z20.822 Contact with and (suspected) exposure to COVID-19; Z91.14 Patient's other noncompliance with medication regimen; Z79.4 Long term (current) use of insulin; Z79.84 Long term (current) use of oral hypoglycemic drugs; Z79.899 Other long term (current) drug therapy
CPT/HCPCS: 36415; 50200; 71045; 77012; 78580; 80048; 80053; 80061; 80076; 80307; 81001; 81003; 82040; 82272; 82784; 82803; 82947; 83540; 83735; 83880; 84484; 85014; 85018; 85025; 85027; 85379; 85610; 86021; 86038; 86039; 86160; 86334; 86803; 86850; 86900; 86901; 86923; 87040; 87086; 87340; 87389; 87635; 88300; 88305; 88313; 88346; 88348; 88350; 93306; 93356; 99152; 99284; A9540; C1758; J0456; J0696; J1643; J1940; P9016; P9047; Q9957

== ENCOUNTER 2023-03-15 09:24 | Outpatient (REF) | payer OTHER, SELFPAY ==
[2023-03-15 10:56] LABS: Anion Gap 9 (12-20); Blood Urea Nitrogen 18 mg/dL (9-16); Calcium 7.6 mg/dL (8.4-10.2); Carbon Dioxide 26 mmol/L (22-29); Chloride 108 mmol/L (96-108); Estimated Glomerular Filt Rate 57; Potassium 3.5 mmol/L (3.3-5.1); Sodium 139 mmol/L (135-145)
[2023-03-15 11:30] LABS: Creatinine Urine 48.31 mg/dL
[2023-03-15 12:55] LABS: Protein/Creatinine Ratio, Ur 15.77 (<0.2); Total Protein Urine Random 762 mg/dL (<12)
== END 2023-03-15 09:25 | disposition home or self-care (01) ==
LOC: HO.LAB 09:24
PROVIDERS: PCP Internal Medicine; Visit Provider Internal Medicine Hypertension Specialist
DX: N18.32 Chronic kidney disease, stage 3b (principal)
CPT/HCPCS: 36415; 80051; 82310; 82565; 84156; 84520

== ENCOUNTER 2023-04-18 09:05 | Inpatient (IN) | payer OTHER, SELFPAY ==
[2023-04-18] VITALS (10 sets, daily range): BP systolic 165–180; BP diastolic 80–97; PULSE 91–113; RESP 14–21; TEMP 36.6–37.2; O2SAT 95–99; BMI 27.1
--- NOTE | ~2023-04-18 | XR_ITS ---
EXAMINATION: XR CHEST CLINICAL INFORMATION: Shortness of breath. COMPARISON: 04/18/2023 chest radiographs. TECHNIQUE: Frontal view of the chest was obtained. FINDINGS: There are increased pulmonary vascular markings and linear. The heart and mediastinal structures are unremarkable. XR/XR chest 1V IMPRESSION: Persistent mild congestion. Right pleural effusion appears improved.
--- NOTE | ~2023-04-18 | CT_ITS ---
EXAMINATION: CT ABDOMEN AND PELVIS WITHOUT CONTRAST CLINICAL INFORMATION: Abdominal pain and distention COMPARISON: None available. TECHNIQUE: Multidetector volumetric imaging was performed from the superior aspect of the liver through the pubic symphysis. Sagittal and coronal reformatted images were obtained on the technologist's workstation. This CT examination was performed using dose optimization techniques as appropriate, variously including the following: *Automated exposure control *Adjustment of mA and/or kV according to patient size (this includes techniques or standardized protocols for targeted exams where dose is matched to indication/reason for exam; i.e. extremities or head) *Use of iterative reconstruction technique DLP: 437 mGy-cm FINDINGS: LUNG BASES: There are bilateral pleural effusions greater on the right side with bibasilar atelectasis. The heart size is normal. LIVER, GALLBLADDER, AND BILIARY TREE: The liver is normal in size, shape, and attenuation. No focal hepatic lesion or biliary ductal dilatation is present. There are multiple gallstones without wall thickening or pericholecystic fluid collection. PANCREAS: Unremarkable. SPLEEN: Unremarkable. ADRENAL GLANDS: Unremarkable. KIDNEYS AND URETERS: The kidneys are normal in size, shape, and attenuation. No hydronephrosis, hydroureter, or calculi seen. No perinephric stranding. BLADDER: Unremarkable. GASTROINTESTINAL TRACT: There is large amount of stool seen is throughout the colon without significant distention. The small bowel loops are normal caliber. No free air, inflammatory process of free fluid seen. The appendix is normal caliber ABDOMINAL WALL: There is diffuse abdominal wall edema/cellulitis LYMPH NODES: No abnormal size lymph nodes or mass seen. VASCULAR: Unremarkable. PELVIC VISCERA: There is no free fluid or free air. OSSEOUS STRUCTURES: No aggressive lytic or sclerotic process seen. Mild degenerative disc changes L5-S1 disc level are noted. CT/CT abdomen pelvis wo IV con IMPRESSION: 1. Moderate constipation without obstruction. 2. Diffuse abdominal wall edema/cellulitis. 3. Bilateral pleural effusions greater on the right side with bibasilar atelectasis. 4. Cholelithiasis without wall thickening. Fleischner guidelines were followed.
--- NOTE | ~2023-04-18 | NM_ITS ---
TC-PYP Cardiac Study INDICATION: Evaluation for Cardiac Amyloidosis CLINICAL HISTORY: 57 years old Male with progressive diastolic heart failure and systolic dysfunction TECHNIQUE: 25 mCi of Tc-99m pyrophosphate was injected intravenously. Planar images of the chest were obtained in the anterior and left lateral views at 3 hours.. SPECT-CT images of the chest were also obtained. Total DLP 76 mGy-cm. COMPARISON: None FINDINGS: 1. Image Quality: Fair 2. Semi-quantitative visual scoring of the cardiac uptake is performed as follows: 0 = absent cardiac uptake and intense bone uptake 3. H-CL Ratio if Applicable: 1.01 4. Ancillary Finds: Nothing significant NM/NM TC PYP cardiac amyloidosis IMPRESSION: 1. No evidence of ATTR type of cardiac amyloidosis 2. Please note that the Tc 99m PYP is more sensitive in detecting transthyretin-related cardiac amyloidosis than that of light-chain cardiac amyloidosis.
--- NOTE | ~2023-04-18 | XR_ITS ---
EXAMINATION: XR CHEST CLINICAL INFORMATION: Hypoxia COMPARISON: Previous x-ray most recent from yesterday TECHNIQUE: Frontal view of the chest was obtained. FINDINGS: The cardiac and mediastinal contours are stable. The lung volumes are low. There is increasing bilateral central airspace disease. Differential would include pulmonary edema and pneumonia. There is a small right pleural effusion. There is no pneumothorax. Old trauma to the right distal clavicle. Old right rib fractures. XR/XR chest 1V IMPRESSION: Increasing bilateral central airspace disease. Differential would include pulmonary edema and pneumonia. Small right pleural effusion.
--- NOTE | ~2023-04-18 | XR_ITS ---
EXAMINATION: XR CHEST CLINICAL INFORMATION: Difficulty breathing COMPARISON: None available. TECHNIQUE: 2 views of the chest were obtained. FINDINGS: The lungs are well-expanded with increased vascular markings with borderline cardiomegaly suggestive of CHF or interstitial edema. There is a small right pleural effusion. No gross bony abnormalities. XR/XR chest 2V IMPRESSION: Mild CHF or interstitial edema. Small right pleural effusion.
--- NOTE | ~2023-04-18 | XR_ITS ---
EXAMINATION: XR CHEST CLINICAL INFORMATION: Shortness of breath. COMPARISON: Chest x-ray 04/21/2023 40 3:00 AM TECHNIQUE: Frontal portable view of the chest was obtained. 7:21 PM FINDINGS: Lung volume low. Heart size is prominent. Central pulmonary vascular prominence and increased lung markings suggesting interstitial edema. No focal consolidation. Trace right-sided pleural effusion. Compared to prior study this a.m. no substantial change. XR/XR chest 1V IMPRESSION: Central pulmonary vascular prominence and increased lung markings suggesting interstitial edema. Trace right pleural effusion. No change since prior chest x-ray this a.m.
--- NOTE | 2023-04-18 09:40 | ECG_ITS ---
Test Reason : CHEST PAIN Blood Pressure : / mmHG Vent. Rate : 091 BPM Atrial Rate : 091 BPM P-R Int : 134 ms QRS Dur : 082 ms QT Int : 386 ms P-R-T Axes : 039 -01 079 degrees QTc Int : 474 ms Normal sinus rhythm Septal infarct , age undetermined Abnormal ECG When compared with ECG of 17-JUL-2018 07:12, Septal infarct is now Present Nonspecific T wave abnormality now evident in Lateral leads Referred By: Bret Holloway Electronically Signed By:ROOSEVELT HENDRICKS MD
--- NOTE | 2023-04-18 09:44 | PC.NURSE ---
Alert and oriented. Arrived from home stating he has sob when lying, swollen right leg, and swollen scrotum. Right leg with 2+ non-pitting edema, scrotum swollen with 5/10 pain reported. Abdomen non tender but distended. Bowel sounds positive x 4. denies headache or chest pain
--- NOTE | 2023-04-18 09:50 | ED_ITS ---
HPI - General Adult General Chief complaint: General Medical Stated complaint: Swollen legs/Testicle pain Time Seen by Provider: 04/18/23 09:33 Source: patient Mode of arrival: ambulatory Limitations: no limitations History of Present Illness HPI narrative: 57-year-old male with history of diabetes presents with lower extremity swelling, genital swelling, shortness breath, abdominal swelling and discomfort. Symptoms started the past few days. Patient describes the symptoms as severe. There is no clear relieving or exacerbating features. Patient is currently on a diuretic to help treat similar symptoms in the past. He has been taking his medications appropriately. He denies any dietary noncompliance. Denies any fevers, chills, nausea, vomiting, diarrhea constipation. Denies any history of liver disease, liver cirrhosis. He does describe shortness of breath which appears to be worse with lying flat. He denies any chest pain, cough or mucus production Related Data Home Medications Medication Instructions Recorded Confirmed dulaglutide 1.5 mg/0.5 mL 1.5 mg subcut WE@0900 09/25/20 01/31/23 subcutaneous pen injector (Trulicity) metformin 1,000 mg tablet 1,000 mg PO BID 09/25/20 01/31/23 insulin glargine 100 unit/mL (3 31 unit subcut DAILY 12/22/20 01/31/23 mL) subcutaneous pen (Lantus Solostar U-100 Insulin) insulin lispro 100 unit/mL 12 unit subcut TIDAC 12/22/20 01/31/23 subcutaneous pen (Humalog KwikPen (U-100) Insulin) ketorolac 0.5 % eye drops 1 drp ophthalmic (eye) TID 01/31/23 01/31/23 prednisolone acetate 1 % eye 1 drp ophthalmic (eye) TID 01/31/23 01/31/23 drops,suspension Previous Rx's Medication Instructions Recorded carvedilol 3.125 mg tablet 3.125 mg PO BID #60 tabs 02/09/23 furosemide 20 mg tablet (Lasix) 20 mg PO BID #60 tabs 02/09/23 Allergies Allergy/AdvReac Type Severity Reaction Status Date / Time No Known Allergies Allergy Verified 04/18/23 09:11 [No Known Allergies*] Review of Systems Review of Systems: CONSTITUTIONAL: Denies weight loss, fever and chills. HEENT: Denies changes in vision and hearing. RESPIRATORY: + SOB no cough. CV: Denies palpitations no CP. GI: + abdominal pain, negative nausea, vomiting and diarrhea. : Denies dysuria and urinary frequency. MSK: Denies myalgia and joint pain. SKIN: Denies rash and pruritus. NEUROLOGICAL: Denies headache and syncope. PSYCHIATRIC: Denies recent changes in mood. Denies anxiety and depression. All other ROS are negative unless in HPI PMFSH Past Medical History Medical History Anemia Chronic pain syndrome Depression Diabetic polyneuropathy HLD (hyperlipidemia) HTN (hypertension) T2DM (type 2 diabetes mellitus) Vitamin D deficiency Surgical History Hx of colonoscopy Hx of rotator cuff surgery Family History Family History Father Colon cancer Mother History of kidney problems T2DM (type 2 diabetes mellitus) Sister T2DM (type 2 diabetes mellitus) Social History Social History Alcohol intake: never Patient Tobacco Use Status: Never used Tobacco Advance Directives: Yes Advance Directives Information Provided: Yes Advance Directives on File: No service: No Current occupational status: disabled Current occupation: right handed Physical Exam ED Vital Signs: Vital Signs - 24 hr 04/18/23 09:12 04/18/23 09:38 04/18/23 10:41 Temperature 98 F 98.9 F Pulse Rate 93 111 H 91 Respiratory Rate 19 18 18 Blood Pressure 172/91 H 178/93 H 179/97 H Pulse Oximetry 99 98 97 Oxygen Delivery Method Room Air Room Air Room Air 04/18/23 11:14 04/18/23 13:05 Temperature Pulse Rate 111 H 95 Respiratory Rate 18 14 Blood Pressure 165/85 H 172/90 H Pulse Oximetry 99 99 Oxygen Delivery Method Room Air Room Air BMI result Body Mass Index 27.1 GEN: Well developed, no acute distress, alert, oriented HEENT: Normocephalic, atraumatic, normal external ears, nose appears normal, no oropharyngeal edema or exudates Eyes: Normal to appearance Neck: Supple, no lymphadenopathy Respiratory: Talks in complete sentences, no respiratory distress, clear to auscultation bilaterally Cardiovascular: Regular rate and rhythm, no murmurs rubs or gallops Abdomen: abd distended, tender no rebound or gaurding Back: No CVA tenderness Extremities: No clubbing cyanosis 3+ pitting edema Neurologic: No focal neurologic deficits, cranial nerves 2-12 intact, strength is 5/5 bilaterally Skin: No rash Course Course Course Narrative: 57-year-old male presents with anasarca. Differential diagnosis is broad including liver dysfunction, kidney dysfunction. Abdomen is distended and tender. Suspect ascites. Will check a CT scan of the abdomen pelvis to rule out mass effect. Will check lab tests rule out albumin deficiency, renal dysfunction. Will provide patient with Lasix. Medications Administered Discontinued Medications Generic Name Dose Route Start Last Admin Trade Name Freq PRN Reason Stop Dose Admin Furosemide 40 mg 04/18/23 09:41 04/18/23 10:15 Furosemide 40 Mg/4 Ml Vial IVPUSH 04/18/23 09:42 40 mg ONCE ONE Administration Protocol Medical Decision Making Medical Decision Making [facility] Narrative: Patient presents with anasarca. The differential diagnosis is broad including hypoalbuminemia, liver dysfunction, portal hypertension, liver cirrhosis, renal dysfunction, right heart failure. Will check lab tests, imaging studies. Will provide patient with Lasix. Will re-evaluate the patient. Differential Diagnosis Differential Diagnoses: The differential diagnosis associated with the presentation includes (See above) Anasarca, nephrotic syndrome Admission/Observation Consideration of admission/observation: Escalation of care including admission/observation considered Consult Healthcare Provider Management of the patient was discussed with: Hospitalist Lab Data [facility] Lab Attestation statement: I reviewed the patient's lab results. 04/18/23 11:05 04/18/23 11:05 Labs: Lab Results 04/18/23 04/18/23 04/18/23 Range/Units 10:48 11:05 11:05 WBC 9.6 (4.8-10.8) X10*3/uL RBC 2.97 L (4.60-5.80) X10*6/uL Hgb 7.6 L (14.0-18.0) g/dl Hct 25.2 L (42.0-52.0) % MCV 84.8 (80.0-98.0) fL MCH 25.6 L (27.0-33.0) pg MCHC 30.2 L (31.0-36.0) g/dl RDW 16.8 H (11.0-16.0) % Plt Count 383 (160-400) X10*3/uL MPV 9.7 (9.4-12.4) fL Immature Gran % (Auto) 0.5 H (0.0-0.4) % Neut % (Auto) 67.1 (45-73) % Lymph % (Auto) 23.4 (20-40) % [place] % (Auto) 5.7 (2-11) % Eos % (Auto) 2.7 (0-4) % Baso % (Auto) 0.6 (0-2) % Lymph # (Auto) 2.2 (1.2-4.9) X10*3/uL [place] # (Auto) 0.6 (0.1-1.2) X10*3/uL Eos # (Auto) 0.3 (0.0-0.4) X10*3/uL Baso # (Auto) 0.1 (0.0-0.2) X10*3/uL Abs Immat Gran (auto) 0.05 H (0.00-0.03) X10*3/uL Absolute Neuts (auto) 6.4 (2.0-8.3) x10*3/uL Absolute Nucleated RBC 0.000 (0.0-0.012) X10*3/uL Nucleated RBC % (auto) 0.0 (0.0-0.2) /100WBC PT 12.1 (10.0-13.1) SEC INR 1.1 (0.9-1.1) APTT (26.0-36.4) SEC Sodium (135-145) mmol/L Potassium (3.3-5.1) mmol/L Chloride (96-108) mmol/L Carbon Dioxide (22-29) mmol/L Anion Gap (12-20) BUN (9-16) mg/dL Creatinine (0.5-1.4) mg/dL Estim Creat Clear Calc Estimated GFR POC Glucose (60-115) mg/dL Random Glucose (60-115) mg/dL Calcium (8.4-10.2) mg/dL Total Bilirubin (0.0-1.0) mg/dL AST (5-37) U/L ALT (0-40) U/L Alkaline Phosphatase (39-117) U/L Total Protein (6.5-8.0) g/dL Albumin (3.5-5.0) g/dL Urine Color Yellow Urine Appearance Clear Urine pH 6.5 (5.0-9.0) Ur Specific [place] 1.010 (1.005-1.025) Urine Protein 300 (3+) H (Neg-Trace) mg/dL Urine Glucose (UA) Negative (Negative) mg/dL Urine Ketones Negative (Negative) mg/dL Urine Blood Trace H (Negative) Urine Nitrite Negative (Negative) Ur Leukocyte Esterase Negative (Negative) Urine RBC 0-2 (0-2) /HPF Urine WBC 0-5 (0-5) /HPF Ur Squamous Epith Cells 0-2 (0-2) /HPF Urine Bacteria None Seen (None Seen) Hyaline Casts 0-2 (0-2) /LPF 04/18/23 04/18/23 04/18/23 Range/Units 11:05 11:06 12:10 WBC (4.8-10.8) X10*3/uL RBC (4.60-5.80) X10*6/uL Hgb (14.0-18.0) g/dl Hct (42.0-52.0) % MCV (80.0-98.0) fL MCH (27.0-33.0) pg MCHC (31.0-36.0) g/dl RDW (11.0-16.0) % Plt Count (160-400) X10*3/uL MPV (9.4-12.4) fL Immature Gran % (Auto) (0.0-0.4) % Neut % (Auto) (45-73) % Lymph % (Auto) (20-40) % [place] % (Auto) (2-11) % Eos % (Auto) (0-4) % Baso % (Auto) (0-2) % Lymph # (Auto) (1.2-4.9) X10*3/uL [place] # (Auto) (0.1-1.2) X10*3/uL Eos # (Auto) (0.0-0.4) X10*3/uL Baso # (Auto) (0.0-0.2) X10*3/uL Abs Immat Gran (auto) (0.00-0.03) X10*3/uL Absolute Neuts (auto) (2.0-8.3) x10*3/uL Absolute Nucleated RBC (0.0-0.012) X10*3/uL Nucleated RBC % (auto) (0.0-0.2) /100WBC PT (10.0-13.1) SEC INR (0.9-1.1) APTT 32.9 (26.0-36.4) SEC Sodium 142 (135-145) mmol/L Potassium 3.6 (3.3-5.1) mmol/L Chloride 111 H (96-108) mmol/L Carbon Dioxide 23 (22-29) mmol/L Anion Gap 12 (12-20) BUN 19 H (9-16) mg/dL Creatinine 1.51 H (0.5-1.4) mg/dL Estim Creat Clear Calc 48.3 Estimated GFR 48 POC Glucose 92 (60-115) mg/dL Random Glucose 38 L* (60-115) mg/dL Calcium 8.2 L D (8.4-10.2) mg/dL Total Bilirubin 0.2 (0.0-1.0) mg/dL AST 16 (5-37) U/L ALT 11 (0-40) U/L Alkaline Phosphatase 94 (39-117) U/L Total Protein 6.4 L (6.5-8.0) g/dL Albumin 2.2 L (3.5-5.0) g/dL Urine Color Urine Appearance Urine pH (5.0-9.0) Ur Specific [place] (1.005-1.025) Urine Protein (Neg-Trace) mg/dL Urine Glucose (UA) (Negative) mg/dL Urine Ketones (Negative) mg/dL Urine Blood (Negative) Urine Nitrite (Negative) Ur Leukocyte Esterase (Negative) Urine RBC (0-2) /HPF Urine WBC (0-5) /HPF Ur Squamous Epith Cells (0-2) /HPF Urine Bacteria (None Seen) Hyaline Casts (0-2) /LPF Independent Interpretation I performed an independent interpretation of an: EKG (Normal sinus rhythm heart rate 91, nonspecific T-wave changes, no acute ST elevations depressions, possible old septal wall ND), Plain X-Ray (Chest: Pulmonary vascular congestion, small right pleural effusion) and CT Scan (Abd/pelvis, no obstruction) Radiology Impression Discussion of test interpretation with radiology: I have reviewed the radiologist's reading. ( CT/CT abdomen pelvis wo IV con IMPRESSION: 1. Moderate constipation without obstruction. 2. Diffuse abdominal wall edema/cellulitis. 3. Bilateral pleural effusions greater on the right side with bibasilar atelectasis. 4. Cholelithiasis without wall thickening. Maude scott) Tests considered The following testing was considered but not selected: Ultrasound Prescription Management I considered prescription management with: Pain Medication Chronic Conditions Patient?s care impacted by: Diabetes Discharge Plan Discharge Clinical Impression: Anasarca, Nephrotic syndrome, Anemia Patient Disposition: Admitted As Inpatient Prescriptions: No Action ketorolac 0.5 % drops 1 drp ophthalmic (eye) TID prednisolone acetate 1 % drops,suspension 1 drp ophthalmic (eye) TID carvedilol 3.125 mg Tablet 3.125 mg PO BID Qty: 60 0RF Protocol: Hold for SBP/HR < HOLD for SBP < : 90 HOLD for HR < : 60 furosemide [Lasix] 20 mg tablet 20 mg PO BID Qty: 60 0RF metformin 1,000 mg tablet 1,000 mg PO BID Trulicity 1.5 mg/0.5 mL pen injector 1.5 mg subcut WE@0900 Lantus Solostar U-100 Insulin 100 unit/mL (3 mL) insulin pen 31 unit subcut DAILY insulin lispro [Humalog KwikPen Insulin] 100 unit/mL insulin pen 12 unit subcut TIDAC
[2023-04-18] MEDS: Furosemide 40 MG/4 ML VIAL IVPUSH (10:15)
[2023-04-18 10:57] LABS: Appearance Urine Clear; Color Urine Yellow; Glucose Urine UA Negative (Negative); Leukocyte Esterase Urine Negative (Negative); Nitrite Urine Negative (Negative); PH 6.5 (5.0-9.0); UMIC TRIGGER UACC YES; Urine Blood Trace (Negative); Urine Ketones Negative (Negative); Urine Protein 300 (3+) mg/dL (Neg-Trace)
[2023-04-18 11:02] LABS: Bacteria Urine None Seen (None Seen); Hyaline Casts Urine 0-2 /LPF (0-2); RBC Urine 0-2 /HPF (0-2); Squamous Epithelial Cell Urine 0-2 /HPF (0-2); WBC Urine 0-5 /HPF (0-5)
[2023-04-18 11:14] LABS: Basophils Absolute Auto 0.1 X10*3/uL (0.0-0.2); Basophils Percent Auto 0.6 % (0-2); Eosinophils Absolute Auto 0.3 X10*3/uL (0.0-0.4); Eosinophils Percent Auto 2.7 % (0-4); Hematocrit 25.2 % (42.0-52.0); Hemoglobin 7.6 g/dl (14.0-18.0); Imm Gran Abs Auto 0.05 X10*3/uL (0.00-0.03); Imm Gran Pct Auto 0.5 % (0.0-0.4); Lymphocytes Absolute Auto 2.2 X10*3/uL (1.2-4.9); Lymphocytes Percent Auto 23.4 % (20-40); MANUAL DIFF FLAG NO; Mean Corpuscular HGB Conc 30.2 g/dl (31.0-36.0); Mean Corpuscular Hemoglobin 25.6 pg (27.0-33.0); Mean Corpuscular Volume 84.8 fL (80.0-98.0); Mean Platelet Volume 9.7 fL (9.4-12.4); Monocytes Absolute Auto 0.6 X10*3/uL (0.1-1.2); Monocytes Percent Auto 5.7 % (2-11); Neutrophils Absolute Auto 6.4 x10*3/uL (2.0-8.3); Neutrophils Percent Auto 67.1 % (45-73); Platelet Count 383 X10*3/uL (160-400); Red Blood Count 2.97 X10*6/uL (4.60-5.80); Red Cell Distribution Width 16.8 % (11.0-16.0); White Blood Count 9.6 X10*3/uL (4.8-10.8)
--- NOTE | 2023-04-18 11:15 | PC.NURSE ---
Alert and oriented. Labs drawn by phlebotomy. Stating 6/10 in scrotum because of swelling. no sob or chest pain
[2023-04-18 11:19] LABS: INTERNATIONAL NORM RATIO 1.1 (0.9-1.1); Prothrombin Time 12.1 SEC (10.0-13.1)
[2023-04-18 11:22] LABS: Partial Thromboplastin Time 32.9 SEC (26.0-36.4)
[2023-04-18 11:34] LABS: Alanine Aminotransferase 11 U/L (0-40); Albumin Level 2.2 g/dL (3.5-5.0); Alkaline Phosphatase 94 U/L (39-117); Anion Gap 12 (12-20); Aspartate Amino Transferase 16 U/L (5-37); Bilirubin Total 0.2 mg/dL (0.0-1.0); Blood Urea Nitrogen 19 mg/dL (9-16); Calcium 8.2 mg/dL (8.4-10.2); Carbon Dioxide 23 mmol/L (22-29); Chloride 111 mmol/L (96-108); Creatinine Clr Calc Pharmacy 48.3; Estimated Glomerular Filt Rate 48; Glucose Random 38 mg/dL (60-115); Potassium 3.6 mmol/L (3.3-5.1); Sodium 142 mmol/L (135-145); Total Protein 6.4 g/dL (6.5-8.0)
[2023-04-18 12:14] LABS: Glucose, Whole Blood 92 mg/dL (60-115)
--- NOTE | 2023-04-18 12:17 | PC.NURSE ---
+effect with juice provided for hypoglycemia. Per Dr Holloway, hold food pending CT scan results.
[2023-04-18 15:02] LABS: Amphetamine Screen Urine Not Detected (Not Detect); Barbiturates, Urine Not Detected (Not Detect); Benzodiazepines Screen Urine Not Detected (Not Detect); Cannabinoid Screen Urine Not Detected (Not Detect); Cocaine Screen Urine POSITIVE (Not Detect); Fentanyl, urine Not Detected (Not Detect); Opiate Screen Urine Not Detected (Not Detect); Phencyclidine Screen Urine Not Detected (Not Detect)
--- NOTE | 2023-04-18 15:03 | PM.IMHP ---
History of Present Illness Date of Service: 04/18/23 Attending physician on admission: [facility] Chief Complaint: edema 57 year old male with chronic normocytic anemia, htn, hld, diabetic polyneuropathy, diabetic nephropathy, chronic pain syndrome, insulin dependent type 2 diabetes, and depression presented to the ED earlier today for evaluation of edema. He reports for the last few days he has been experiencing increased edema in the BLE, abdomen, and scrotal/penile edema. He is also reporting shortness of breath. Was recently admitted here 02/01- for anasarca due to diabetic nephropathy with significant >1000 proteinuria and TMA noted on biopsy found to have HFpEF with EF 50-55%. CARA neg. Hep C ab positive. Diuresed 20+L fluid. Reports compliance with lasix since discharge and has been seen outpt per nephrology. He denies any ongoing drug use, though UTox is positive for cocaine. No etoh. No cigarettes. On arrival, pt hypertensive to 178/93, tachycardic to 111, afebrile, no hypoxia. No leukocytosis. H/H 7.6/25.2%. Creat 1.51 (baseline 1.11), BUN 19, electrolytes largely WNL. Initial glucose 38 (pt received lispro at home but did not eat), repeat glucose 92. Hepatic function normal. Albumin 2.2. UA with 3+ protein, trace blood, otherwise unremarkable. Utox positive for cocaine. Abdominal CT showing moderate constipation without obstruction, diffuse abdominal wall edema, bilateral pleural effusions greater on the right side with bibasilar atelectasis as well as cholelithiasis. CXR shows mild CHF for interstitial edema with small right pleural effusion. In the ED, given 40mg IV lasix. Review of Systems Review of Systems: General: No fevers, malaise, unintentional weight loss HEENT: No blurred vision, diplopia. No sore throat, nasal congestion, rhinorrhea, sinus pain, ear pain Cardiovascular: No chest pain, palpitations, +BLE edema, anasarca Respiratory: +shortness of breath, +wheezing. No cough GI: No abdominal pain, nausea, vomiting, diarrhea, constipation, melena, hematochezia : No dysuria, hematuria, increased urinary frequency, decreased urinary output MSK: No myalgia, back pain Neuro: No headaches, weakness, paresthesias Skin: No rashes or lesions [facility] Medical History (Updated 04/22/23 @ 22:15 by Pattie Perla MD) Anemia Chronic pain syndrome Depression Diabetic nephropathy Diabetic polyneuropathy HLD (hyperlipidemia) HTN (hypertension) Pneumonia T2DM (type 2 diabetes mellitus) Vitamin D deficiency Family History Father Colon cancer Mother History of kidney problems T2DM (type 2 diabetes mellitus) Sister T2DM (type 2 diabetes mellitus) Surgical History Hx of colonoscopy Hx of rotator cuff surgery Status post biopsy of kidney Social History Household Members: Unknown / Unable to assess Alcohol intake: never Patient Tobacco Use Status: Never used Tobacco Use of substances other than those prescribed or required for medical reasons: Refusing to respond Substance Use Type: Crack/Cocaine Currently Displaying Signs/Symptoms of Drug Intoxication Withdrawal: No Have you been hit, kicked, punched, or otherwise hurt by someone within the past year? If so, by whom?: No Do you feel safe in your current relationship?: No Current Relationship Is there a partner from a previous relationship who is making you feel unsafe now?: No Are you made to feel afraid or neglected: No Advance Directives: Yes Advance Directives Information Provided: Yes Advance Directives on File: No Advance Directives Date on File: 04/18/23 Do you have thoughts of harming others: None Do you have a plan to hurt others: No Plan Recently lost weight without trying: No Eating poorly because of decreased appetite: No Nutrition Risks: No Nutritional Risk service: No Current occupational status: disabled Current occupation: right handed Meds Allergies Allergy/AdvReac Type Severity Reaction Status Date / Time No Known Allergies Allergy Verified 04/18/23 09:11 [No Known Allergies*] Active Medications: Current Medications Acetaminophen (Acetaminophen 325 Mg Tablet) 650 mg PO Q6H PRN PRN Reason: Pain, Mild (Pain Scale 1-3) Docusate Sodium (Docusate Sodium 100 Mg Capsule) 100 mg PO DAILY PRN PRN Reason: Constipation Enoxaparin Sodium (Enoxaparin Sodium 40 Mg/0.4 Ml Syringe) 40 mg SUBCUT Q24H BRENNEN Furosemide (Furosemide 40 Mg/4 Ml Vial) 40 mg IVPUSH DAILY BRENNEN; Protocol Albumin Human (Kedbumin 25 %) 100 mls @ 100 mls/hr IV Q6H BRENNEN Stop: 04/19/23 09:59 Ondansetron HCl (Ondansetron Hcl 4 Mg/2 Ml Vial) 4 mg IVPUSH Q8H PRN PRN Reason: Nausea and Vomiting Sodium Chloride (0.9 % Sodium Chloride Flush 3 Ml Syringe) 3 ml IVFLUSH QSHIFT BRENNEN Home Medications Medication Instructions Recorded Confirmed Last Taken Type dulaglutide 1.5 mg/0.5 mL 1.5 mg subcut WE@0900 09/25/20 04/18/23 01/26/23 History subcutaneous pen injector (Trulicity) metformin 1,000 mg tablet 1,000 mg PO BID 09/25/20 04/18/23 01/30/23 History insulin glargine 100 unit/mL (3 32 unit subcut BEDTIME 12/22/20 04/18/23 01/30/23 History mL) subcutaneous pen (Lantus Solostar U-100 Insulin) insulin lispro 100 unit/mL 12 unit subcut TIDAC 12/22/20 04/18/23 04/18/23 History subcutaneous pen (Humalog KwikPen (U-100) Insulin) ketorolac 0.5 % eye drops 1 drp ophthalmic (eye) TID 01/31/23 04/18/23 Unknown History prednisolone acetate 1 % eye 1 drp ophthalmic (eye) TID 01/31/23 04/18/23 Unknown History drops,suspension diphenhydramine HCl 25 mg capsule 25 mg PO BEDTIME 04/18/23 04/18/23 Unknown History (Benadryl) ferrous sulfate 325 mg (65 mg 325 mg PO DAILY 04/18/23 04/18/23 Unknown History iron) tablet furosemide 20 mg tablet (Lasix) 40 mg PO DAILY 04/18/23 04/18/23 Unknown History gabapentin 800 mg tablet 800 mg PO TID 04/18/23 04/18/23 Unknown History ramelteon 8 mg tablet 8 mg PO BEDTIME PRN Insomnia 04/18/23 04/18/23 04/17/23 History tamsulosin 0.4 mg capsule 0.4 mg PO DAILY 04/18/23 04/18/23 Unknown History ziprasidone HCl 60 mg capsule 60 mg PO BID 04/18/23 04/18/23 Unknown History (Samuel) Physical Exam Vital Signs and Narrative: Vital Signs: Last Vital Signs Temp 97.9 F 04/18/23 14:41 Pulse 96 04/18/23 14:41 Resp 21 H 04/18/23 14:41 BP 166/88 H 04/18/23 14:41 Pulse Ox 99 04/18/23 14:41 O2 Del Method Room Air 04/18/23 14:41 BMI result Body Mass Index 27.1 Constitutional - Awake and Alert, No apparent distress Eyes - PERRLA, EOMI Cardiovascular - S1S2, RRR, BLE edema Respiratory - Normal lung expansion, Normal respiratory effort, No respiratory distress, bilateral crackles, diminished at bases Gastrointestinal - NT / ND; +BS; No rebound or guarding. abdominal edema - scrotal and penile edema Extremities - no calf tenderness bilaterally Skin - Warm/Dry Neurological - Alert & oriented x3 Psychological - Appropriate affect Results Labs 04/18/23 11:05 04/18/23 11:05 Labs: Laboratory Results - last 24 hr 04/18/23 04/18/23 04/18/23 10:48 11:05 11:05 MCV 84.8 MCH 25.6 L MCHC 30.2 L RDW 16.8 H Plt Count 383 MPV 9.7 Immature Gran % (Auto) 0.5 H Neut % (Auto) 67.1 Lymph % (Auto) 23.4 [place] % (Auto) 5.7 Eos % (Auto) 2.7 Baso % (Auto) 0.6 Lymph # (Auto) 2.2 [place] # (Auto) 0.6 Eos # (Auto) 0.3 Baso # (Auto) 0.1 Abs Immat Gran (auto) 0.05 H Absolute Neuts (auto) 6.4 Absolute Nucleated RBC 0.000 Nucleated RBC % (auto) 0.0 PT 12.1 INR 1.1 APTT Anion Gap Estim Creat Clear Calc Estimated GFR POC Glucose Random Glucose Calcium Total Bilirubin AST ALT Alkaline Phosphatase Total Protein Albumin Urine Color Yellow Urine Appearance Clear Urine pH 6.5 Ur Specific [place] 1.010 Urine Protein 300 (3+) H Urine Glucose (UA) Negative Urine Ketones Negative Urine Blood Trace H Urine Nitrite Negative Ur Leukocyte Esterase Negative Urine RBC 0-2 Urine WBC 0-5 Ur Squamous Epith Cells 0-2 Urine Bacteria None Seen Hyaline Casts 0-2 Urine Opiates Screen Urine Fentanyl Screen Ur Barbiturates Screen Ur Phencyclidine Scrn Ur Amphetamines Screen U Benzodiazepines Scrn Urine Cocaine Screen U Marijuana (THC) Screen 04/18/23 04/18/23 04/18/23 11:05 11:05 11:06 MCV MCH MCHC RDW Plt Count MPV Immature Gran % (Auto) Neut % (Auto) Lymph % (Auto) [place] % (Auto) Eos % (Auto) Baso % (Auto) Lymph # (Auto) [place] # (Auto) Eos # (Auto) Baso # (Auto) Abs Immat Gran (auto) Absolute Neuts (auto) Absolute Nucleated RBC Nucleated RBC % (auto) PT INR APTT 32.9 Anion Gap 12 Estim Creat Clear Calc 48.3 Estimated GFR 48 POC Glucose Random Glucose 38 L* Calcium 8.2 L D Total Bilirubin 0.2 AST 16 ALT 11 Alkaline Phosphatase 94 Total Protein 6.4 L Albumin 2.2 L Urine Color Urine Appearance Urine pH Ur Specific [place] Urine Protein Urine Glucose (UA) Urine Ketones Urine Blood Urine Nitrite Ur Leukocyte Esterase Urine RBC Urine WBC Ur Squamous Epith Cells Urine Bacteria Hyaline Casts Urine Opiates Screen Not Detected Urine Fentanyl Screen Not Detected Ur Barbiturates Screen Not Detected Ur Phencyclidine Scrn Not Detected Ur Amphetamines Screen Not Detected U Benzodiazepines Scrn Not Detected Urine Cocaine Screen POSITIVE H U Marijuana (THC) Screen Not Detected 04/18/23 12:10 MCV MCH MCHC RDW Plt Count MPV Immature Gran % (Auto) Neut % (Auto) Lymph % (Auto) [place] % (Auto) Eos % (Auto) Baso % (Auto) Lymph # (Auto) [place] # (Auto) Eos # (Auto) Baso # (Auto) Abs Immat Gran (auto) Absolute Neuts (auto) Absolute Nucleated RBC Nucleated RBC % (auto) PT INR APTT Anion Gap Estim Creat Clear Calc Estimated GFR POC Glucose 92 Random Glucose Calcium Total Bilirubin AST ALT Alkaline Phosphatase Total Protein Albumin Urine Color Urine Appearance Urine pH Ur Specific [place] Urine Protein Urine Glucose (UA) Urine Ketones Urine Blood Urine Nitrite Ur Leukocyte Esterase Urine RBC Urine WBC Ur Squamous Epith Cells Urine Bacteria Hyaline Casts Urine Opiates Screen Urine Fentanyl Screen Ur Barbiturates Screen Ur Phencyclidine Scrn Ur Amphetamines Screen U Benzodiazepines Scrn Urine Cocaine Screen U Marijuana (THC) Screen Imaging Radiologist's Impressions: Impressions Chest X-Ray 04/18/23 11:30 IMPRESSION: Mild CHF or interstitial edema. Small right pleural effusion. Abdomen/Pelvis CT 04/18/23 12:41 IMPRESSION: 1. Moderate constipation without obstruction. 2. Diffuse abdominal wall edema/cellulitis. 3. Bilateral pleural effusions greater on the right side with bibasilar atelectasis. 4. Cholelithiasis without wall thickening. Fleischner guidelines were followed. Assessment and Plan (1) Anasarca: Status: Acute (2) Nephrotic syndrome: Status: Acute Plan 57 year old male with chronic normocytic anemia, htn, hld, diabetic polyneuropathy, diabetic nephropathy, chronic pain syndrome, insulin dependent type 2 diabetes, and depression admitted for anasarca associated with nephrotic syndome. #Anasarca related to nephrotic syndrome (due to diabetic nephropathy) -Bx 02/10 showing diabetic nephropathy and TMA. CARA negative -UA with 3+ proteinuria. Creat 1.51 (baseline 1.11) -IV lasix 40mg daily -Strict I&O, greco catheter for fluid management -Low sodium diet -Nephrology consult #Acute kidney injury -related to above -CKD stage 3 at baseline -Continue diuresis -Follow BMP #Bilateral pleural effusions -related to above, BNP elevated but baseline -Echo 02/10 showed HFpEF, EF 55-60% -Continue diuresis as above, stict I&O # insulin-dependent type 2 diabetes with hyperglycemia -glucose 38 on arrival, patient reports he was given lispro at home but did not eat, improved to 92 -Diabetic diet -Continue home basal insulin -Humlog on sliding scale -Hold PO antihyperglycemics #HTN- uncontrolled -increased coreg to 6.125 BID -Follow BPs #Chronic normocytic anemia -Likely r/t chronic disease -H/H above transfusion threshold -Follow CBC #Cocaine abuse -Utox positive -Addiction med consult #Hep C ab positive -Viral load pending DVT prophylaxis- lovenox Full code Pt requires inpt stay at least 2 midnights for management of anasarca due to nephrotic syndrome requiring IV diuresis, close monitoing of I&O and expert consultation. Time Spent With Patient Time: Total time managing care of this patient today ____ minutes. Quality Stroke Does the patient have a stroke diagnosis?: No VTE Prior VTE?: No VTE Risk Level:: Medical - moderate - high VTE Device Contraindication: Treatment Not Indicated VTE Drug Contraindication: N/A - Med Ordered
[2023-04-18 15:27] LABS: B Type Natriuretic Peptide 495 pg/mL (<100)
--- NOTE | 2023-04-18 16:15 | PHA.MEDREC ---
Pharmacy Consult ? Medication Reconciliation Pharmacy has completed the medication reconciliation. Spoke to sister who administers meds Kurt
[2023-04-18] MEDS: Albumin Human 25 % 100 ML IV ×2 (17:05→20:15)
[2023-04-18] MEDS: Enoxaparin Sodium 40 MG/0.4 ML SYRINGE SUBCUT (17:06)
[2023-04-18] MEDS: 0.9 % Sodium Chloride Flush 3 ML SYRINGE IVFLUSH (17:06)
[2023-04-18 17:50] LABS: Glucose, Whole Blood 149 mg/dL (60-115)
--- NOTE | 2023-04-18 17:59 | PC.NURSE ---
Report called to unit
[2023-04-18 18:46] LABS: Glucose, Whole Blood 185 mg/dL (60-115)
[2023-04-18] MEDS: Gabapentin 400 MG CAPSULE 800 MG PO (20:14)
[2023-04-18] MEDS: carvediloL 3.125 MG TABLET PO (20:15)
[2023-04-18] MEDS: diphenhydrAMINE HCL 25 MG CAPSULE PO (20:15)
[2023-04-18] MEDS: Ziprasidone 60 MG CAPSULE PO (20:15)
[2023-04-18] MEDS: Insulin Lispro 100 UNIT/ML 3 ML VIAL SUBCUT (20:34)
[2023-04-18] MEDS: Insulin Glargine,Hum.rec.anlog 100 UNIT/ML 10 ML VIAL 24 UNIT SUBCUT (20:35)
[2023-04-18] MEDS: Furosemide 40 MG/4 ML VIAL 20 MG IVPUSH (20:46)
[2023-04-19] VITALS (10 sets, daily range): BP systolic 133–154; BP diastolic 54–86; PULSE 80–98; RESP 14–22; TEMP 36–37.1; O2SAT 92–99
[2023-04-19] MEDS: Albumin Human 25 % 100 ML IV ×2 (04:40→09:36)
[2023-04-19 06:14] LABS: MANUAL DIFF FLAG NO
[2023-04-19 06:26] LABS: Basophils Absolute Auto 0.1 X10*3/uL (0.0-0.2); Basophils Percent Auto 0.7 % (0-2); Eosinophils Absolute Auto 0.2 X10*3/uL (0.0-0.4); Eosinophils Percent Auto 3.3 % (0-4); Hematocrit 21.5 % (42.0-52.0); Imm Gran Abs Auto 0.09 X10*3/uL (0.00-0.03); Imm Gran Pct Auto 1.3 % (0.0-0.4); Lymphocytes Absolute Auto 1.2 X10*3/uL (1.2-4.9); Lymphocytes Percent Auto 18.3 % (20-40); Mean Corpuscular HGB Conc 30.7 g/dl (31.0-36.0); Mean Corpuscular Hemoglobin 26.2 pg (27.0-33.0); Mean Corpuscular Volume 85.3 fL (80.0-98.0); Mean Platelet Volume 10.1 fL (9.4-12.4); Monocytes Absolute Auto 0.5 X10*3/uL (0.1-1.2); Monocytes Percent Auto 7.9 % (2-11); Neutrophils Absolute Auto 4.6 x10*3/uL (2.0-8.3); Neutrophils Percent Auto 68.5 % (45-73); Platelet Count 322 X10*3/uL (160-400); Red Blood Count 2.52 X10*6/uL (4.60-5.80); Red Cell Distribution Width 16.9 % (11.0-16.0); White Blood Count 6.7 X10*3/uL (4.8-10.8)
[2023-04-19 06:35] LABS: Anion Gap 9 (12-20); Blood Urea Nitrogen 25 mg/dL (9-16); Calcium 8.1 mg/dL (8.4-10.2); Carbon Dioxide 24 mmol/L (22-29); Chloride 111 mmol/L (96-108); Creatinine Clr Calc Pharmacy 37.4; Estimated Glomerular Filt Rate 36; Glucose Random 147 mg/dL (60-115); Potassium 4.3 mmol/L (3.3-5.1); Sodium 140 mmol/L (135-145)
[2023-04-19 07:16] LABS: Glucose, Whole Blood 135 mg/dL (60-115)
[2023-04-19 08:33] LABS: Hemoglobin 6.6 g/dl (14.0-18.0)
[2023-04-19 08:39] LABS: Iron 23 mcg/dL (45-160); Percent Iron Saturation 15 % (15-50); Total Iron Binding Capacity 150 mcg/dL (228-428); Unsaturated Iron Binding 127 ug/dL
[2023-04-19] MEDS: 0.9 % Sodium Chloride Flush 3 ML SYRINGE IVFLUSH ×2 (08:39→16:15)
[2023-04-19] MEDS: Famotidine 20 MG TABLET PO (08:47)
[2023-04-19] MEDS: carvediloL 6.25 MG TABLET PO ×2 (08:47→21:22)
[2023-04-19] MEDS: Furosemide 40 MG/4 ML VIAL IVPUSH (08:47)
[2023-04-19] MEDS: Gabapentin 400 MG CAPSULE 800 MG PO ×3 (08:47→21:22)
[2023-04-19] MEDS: Ferrous Sulfate 324 MG TABLET.DR PO (08:47)
[2023-04-19 09:14] LABS: Ferritin 56 ng/mL (20-250); Folate 12.3 ng/mL (> or = 4.0); Vitamin B12 256 pg/mL (200-900)
[2023-04-19] MEDS: prednisoLONE Acetate 1 % Oph Susp 5 ML DRPBTL 1 DROP EYE-BOTH ×3 (09:28→21:22)
[2023-04-19] MEDS: Tamsulosin HCL 0.4 MG CAPSULE PO (09:28)
[2023-04-19] MEDS: Ketorolac Tromethamine 0.5% Op 5 ML DROPS 1 DROP EYE-BOTH ×3 (09:28→21:22)
[2023-04-19] MEDS: Ziprasidone 60 MG CAPSULE PO ×2 (09:28→21:22)
[2023-04-19 11:12] LABS: Glucose, Whole Blood 184 mg/dL (60-115)
[2023-04-19] MEDS: Furosemide 20 MG/2 ML VIAL IVPUSH (12:03)
[2023-04-19] MEDS: Acetaminophen 325 MG TABLET 650 MG PO (12:03)
--- NOTE | 2023-04-19 13:04 | HO.PM.IMPN ---
Subjective Subjective Date of Service: 04/19/23 Interval History: Anasarca nephrotic syndrome Review of Systems still has sob and edema Denies any chest pain or nausea vomiting or abdominal pain. Physical Exam Vital Signs: Vital Signs: Last Vital Signs Temp 97.0 F 04/19/23 11:42 Pulse 86 04/19/23 11:42 Resp 22 H 04/19/23 11:42 BP 138/75 04/19/23 11:42 Pulse Ox 96 04/19/23 11:13 O2 Del Method Room Air 04/19/23 11:13 BMI result Body Mass Index 27.1 Appearance: Alert.? Oriented X3.?mild sob. cvs: rrr, [id number]. res: air entry seems fair,slightly siminshed at bases ,no rales abd: no rebound or guarding ,nt, bs present. ext pulses present , no cyanosis neuro: axo3 , nonfocal. Objective Data Active Medications Acetaminophen (Acetaminophen 325 Mg Tablet) 650 mg PO Q6H PRN PRN Reason: Pain, Mild (Pain Scale 1-3) Carvedilol (Carvedilol 6.25 Mg Tablet) 6.25 mg PO BID [facility]; Protocol Last Admin: 04/19/23 08:47 Dose: 6.25 mg Documented By: JASMINA Diphenhydramine HCl (Diphenhydramine Hcl 25 Mg Capsule) 25 mg PO BEDTIME [facility] Last Admin: 04/18/23 20:15 Dose: 25 mg Documented By: JORDYN Docusate Sodium (Docusate Sodium 100 Mg Capsule) 100 mg PO DAILY PRN PRN Reason: Constipation Enoxaparin Sodium (Enoxaparin Sodium 40 Mg/0.4 Ml Syringe) 40 mg SUBCUT Q24H [facility] Last Admin: 04/18/23 17:06 Dose: 40 mg Documented By: MARTIN Famotidine (Famotidine 20 Mg Tablet) 20 mg PO DAILY [facility] Last Admin: 04/19/23 08:47 Dose: 20 mg Documented By: JASMINA Ferrous Sulfate (Ferrous Sulfate 324 Mg Tablet.) 324 mg PO DAILY [facility] Last Admin: 04/19/23 08:47 Dose: 324 mg Documented By: JASMINA Furosemide (Furosemide 40 Mg/4 Ml Vial) 40 mg IVPUSH DAILY [facility]; Protocol Last Admin: 05/30/23 08:47 Dose: 40 mg Documented By: JASMINA Gabapentin (Gabapentin 400 Mg Capsule) 800 mg PO TID [facility] Last Admin: 04/19/23 08:47 Dose: 800 mg Documented By: JASMINA Glucose (Glucose Gel 15 Gm Gel..Gram.) 15 gm PO Q15M PRN; Protocol PRN Reason: per Hypoglycemia Standing Ord. Dextrose (D10) 250 mls @ 750 mls/hr IV Q15M PRN; Protocol PRN Reason: per Hypoglycemia Standing Ord. Insulin Glargine (Insulin Glargine,Hum.Rec.Anlog 100 Unit/Ml 10 Ml Vial) 24 unit SUBCUT BEDTIME [facility] Last Admin: 04/18/23 20:35 Dose: 24 unit Documented By: JORDYN Insulin Human Lispro (Insulin Lispro 100 Unit/Ml 3 Ml Vial) 0 unit SUBCUT QIDACHS [facility]; Protocol Last Admin: 04/19/23 11:48 Dose: Not Given Documented By: JASMINA Non-Admin Reason: No Insulin Coverage Ketorolac Tromethamine (Ketorolac Tromethamine 0.5% Op 5 Ml Drops) 1 drop EYE-BOTH TID [facility] Last Admin: 04/19/23 09:28 Dose: 1 drop Documented By: JASMINA Non-Formulary Medication (Ramelteon) 8 mg PO BEDTIME PRN PRN Reason: Insomnia Ondansetron HCl (Ondansetron Hcl 4 Mg/2 Ml Vial) 4 mg IVPUSH Q8H PRN PRN Reason: Nausea and Vomiting Pharmacy Consult (Consult Rx Perform Med Rec) 1 each MISCELLANE ONCE PRN PRN Reason: Consult order Prednisolone Acetate (Prednisolone Acetate 1 % Oph Susp 5 Ml Drpbtl) 1 drop EYE-BOTH TID [facility] Last Admin: 04/19/23 09:28 Dose: 1 drop Documented By: JASMINA Sodium Chloride (0.9 % Sodium Chloride Flush 3 Ml Syringe) 3 ml IVFLUSH QSHIFT [facility] Last Admin: 04/19/23 08:39 Dose: 3 ml Documented By: JASMINA Tamsulosin HCl (Tamsulosin Hcl 0.4 Mg Capsule) 0.4 mg PO DAILY [facility] Last Admin: 04/19/23 09:28 Dose: 0.4 mg Documented By: JASMINA Ziprasidone (Ziprasidone 60 Mg Capsule) 60 mg PO BID [facility] Last Admin: 04/19/23 09:28 Dose: 60 mg Documented By: JASMINA Labs 04/19/23 05:44 04/19/23 05:44 Labs: Laboratory Results - last 24 hr 04/18/23 04/18/23 04/18/23 11:05 11:05 17:45 MCV MCH MCHC RDW Plt Count MPV Immature Gran % (Auto) Neut % (Auto) Lymph % (Auto) [place] % (Auto) Eos % (Auto) Baso % (Auto) Lymph # (Auto) [place] # (Auto) Eos # (Auto) Baso # (Auto) Abs Immat Gran (auto) Absolute Neuts (auto) Absolute Nucleated RBC Nucleated RBC % (auto) Anion Gap Estim Creat Clear Calc Estimated GFR POC Glucose 149 H Random Glucose Calcium Iron TIBC % Saturation Unsat Iron Binding Ferritin B-Natriuretic Peptide 495 H Vitamin B12 Folate Urine Opiates Screen Not Detected Urine Fentanyl Screen Not Detected Ur Barbiturates Screen Not Detected Ur Phencyclidine Scrn Not Detected Ur Amphetamines Screen Not Detected U Benzodiazepines Scrn Not Detected Urine Cocaine Screen POSITIVE H U Marijuana (THC) Screen Not Detected Blood Type Antibody Screen Crossmatch 04/18/23 04/19/23 04/19/23 18:42 05:44 05:44 MCV 85.3 MCH 26.2 L MCHC 30.7 L RDW 16.9 H Plt Count 322 MPV 10.1 Immature Gran % (Auto) 1.3 H Neut % (Auto) 68.5 Lymph % (Auto) 18.3 L [place] % (Auto) 7.9 Eos % (Auto) 3.3 Baso % (Auto) 0.7 Lymph # (Auto) 1.2 [place] # (Auto) 0.5 Eos # (Auto) 0.2 Baso # (Auto) 0.1 Abs Immat Gran (auto) 0.09 H Absolute Neuts (auto) 4.6 Absolute Nucleated RBC 0.000 Nucleated RBC % (auto) 0.0 Anion Gap 9 L Estim Creat Clear Calc 37.4 Estimated GFR 36 POC Glucose 185 H Random Glucose 147 H Calcium 8.1 L Iron 23 L TIBC 150 L % Saturation 15 Unsat Iron Binding 127 Ferritin 56 B-Natriuretic Peptide Vitamin B12 256 Folate 12.3 Urine Opiates Screen Urine Fentanyl Screen Ur Barbiturates Screen Ur Phencyclidine Scrn Ur Amphetamines Screen U Benzodiazepines Scrn Urine Cocaine Screen U Marijuana (THC) Screen Blood Type Antibody Screen Crossmatch 04/19/23 04/19/23 04/19/23 07:02 09:22 11:07 MCV MCH MCHC RDW Plt Count MPV Immature Gran % (Auto) Neut % (Auto) Lymph % (Auto) [place] % (Auto) Eos % (Auto) Baso % (Auto) Lymph # (Auto) [place] # (Auto) Eos # (Auto) Baso # (Auto) Abs Immat Gran (auto) Absolute Neuts (auto) Absolute Nucleated RBC Nucleated RBC % (auto) Anion Gap Estim Creat Clear Calc Estimated GFR POC Glucose 135 H 184 H Random Glucose Calcium Iron TIBC % Saturation Unsat Iron Binding Ferritin B-Natriuretic Peptide Vitamin B12 Folate Urine Opiates Screen Urine Fentanyl Screen Ur Barbiturates Screen Ur Phencyclidine Scrn Ur Amphetamines Screen U Benzodiazepines Scrn Urine Cocaine Screen U Marijuana (THC) Screen Blood Type A Positive Antibody Screen NEGATIVE Crossmatch See Detail Assessment and Plan (1) Anasarca: Status: Acute (2) Nephrotic syndrome: Status: Acute (3) Anemia: Status: Acute Plan 57 year old male with chronic normocytic anemia, htn, hld, diabetic polyneuropathy, diabetic nephropathy, chronic pain syndrome, insulin dependent type 2 diabetes, and depression admitted for anasarca associated with nephrotic syndome. Anasarca related to nephrotic syndrome (possible due to diabetic nephropathy) Bx 02/10 showing diabetic nephropathy and TMA. CARA negative,also cocaine positive UA with 3+ proteinuria. crestinine worsening 1.95 range, worsenin anemia also might be contributing to sob. Strict I&O, greco catheter for fluid management,Low sodium diet IV lasix 40mg daily,added albumin,Nephrology consult Acute kidney injury-related to above CKD stage 3 at baseline Continue diuresis,Follow BMP nephrology eval. Bilateral pleural effusions-related to above, BNP elevated but baseline Echo 02/10 showed HFpEF, EF 55-60% Continue diuresis as above, stict I&O anemia normocytic: Possible anemia chronic disease Worsening Patient denies any melena or angelo blood in the stool iron studies low iron ,tibc ,ferritin normal fobt neg in january,added again. Type and cross, transfuse 1 unit insulin-dependent type 2 diabetes with hyperglycemia fs 149-180 -Diabetic diet,Continue current insulin regimen,Hold PO antihyperglycemics HTN- uncontrolled -increased coreg to 6.125 BID -Follow BPs Chronic normocytic anemia -Likely r/t chronic disease -H/H above transfusion threshold -Follow CBC Cocaine abuse -Utox positive -Addiction med consult Hep C ab positive -Viral load pending DVT prophylaxis- lovenox Full code inpatient need:Anasarca related to nephrotic syndrome (possible due to diabetic nephropathy)- need iv lasix ,i/o moniterein, anemia -need transfusion Time Spent With Patient Time: Total time managing care of this patient today ____ minutes. Quality Stroke Does the patient have a stroke diagnosis?: No VTE Prior VTE?: No VTE Risk Level:: Medical - moderate - high VTE Device Contraindication: Treatment Not Indicated VTE Drug Contraindication: N/A - Med Ordered
--- NOTE | 2023-04-19 14:15 | MHC.CM.PN ---
pt lives alone has senior solutions consultant servcirs and [facility]ca/rn visiusts pt has own ride home dc plan home
--- NOTE | 2023-04-19 15:01 | P.CONNP_ITS ---
History of Present Illness Reason for Consult Consult date: 04/19/23 Chief Complaint Chief complaint: nephrotic syndome, anasarca History of Present Illness Narrative: 57 year old male with biopsy proven diabetic nephropathy who presented to the ER for evaluation of edema. He reports for the last few days he has been experiencing increased edema in the BLE, abdomen, and scrotal/penile edema. He is also reporting shortness of breath. Was recently admitted here 02/01- for anasarca due to diabetic nephropathy . He is Hep C ab positive. Diuresed 20+L fluid during his last admission. Reports compliance with lasix since discharge . He denies any ongoing drug use, though UTox is positive for cocaine. He was hypertensive 178/93, tachycardic HR of 111, afebrile, no hypoxia. No leukocytosis. H/H 7.6/25.2%. Creat 1.51 which has gone up further (baseline 1.11), BUN 19, electrolytes largely WNL. Utox positive for cocaine.? Abdominal CT showing moderate constipation without obstruction, diffuse abdominal wall edema, bilateral pleural effusions greater on the right side with bibasilar atelectasis as well as cholelithiasis.? CXR shows mild CHF for interstitial edema with small right pleural effusion. In the ED, given 40mg IV lasix. He was admitted for further management. Nephrology has been consulted to assist in his clinical care during his current hospital stay Review of Systems Review of Systems Yes all other systems are reviewed and are negative PMFSH Past Medical History Medical History (Updated 04/19/23 @ 15:06 by Quang Cantu MD) Anemia Chronic pain syndrome Depression Diabetic nephropathy Diabetic polyneuropathy HLD (hyperlipidemia) HTN (hypertension) T2DM (type 2 diabetes mellitus) Vitamin D deficiency Family History Family History Father Colon cancer Mother History of kidney problems T2DM (type 2 diabetes mellitus) Sister T2DM (type 2 diabetes mellitus) Surgical History Surgical History (Updated 04/18/23 @ 15:29 by FLY Flaherty) Hx of colonoscopy Hx of rotator cuff surgery Status post biopsy of kidney Social History Social History (Updated 04/18/23 @ 15:29 by FLY Flaherty) Household Members: Unknown / Unable to assess Alcohol intake: never Patient Tobacco Use Status: Never used Tobacco Use of substances other than those prescribed or required for medical reasons: Refusing to respond Substance Use Type: Crack/Cocaine Have you been hit, kicked, punched, or otherwise hurt by someone within the past year? If so, by whom?: No Do you feel safe in your current relationship?: No Current Relationship Is there a partner from a previous relationship who is making you feel unsafe now?: No Are you made to feel afraid or neglected: No Advance Directives: Yes Advance Directives Information Provided: Yes Advance Directives on File: No Advance Directives Date on File: 04/18/23 Do you have thoughts of harming others: None Do you have a plan to hurt others: No Plan Recently lost weight without trying: No Eating poorly because of decreased appetite: No Nutrition Risks: No Nutritional Risk service: No Current occupational status: disabled Current occupation: right handed Meds Allergies Allergy/AdvReac Type Severity Reaction Status Date / Time No Known Allergies Allergy Verified 04/18/23 09:11 [No Known Allergies*] Active Medications: Current Medications Acetaminophen (Acetaminophen 325 Mg Tablet) 650 mg PO Q6H PRN PRN Reason: Pain, Mild (Pain Scale 1-3) Carvedilol (Carvedilol 6.25 Mg Tablet) 6.25 mg PO BID [facility]; Protocol Last Admin: 04/19/23 08:47 Dose: 6.25 mg Diphenhydramine HCl (Diphenhydramine Hcl 25 Mg Capsule) 25 mg PO BEDTIME [facility] Last Admin: 04/18/23 20:15 Dose: 25 mg Docusate Sodium (Docusate Sodium 100 Mg Capsule) 100 mg PO DAILY PRN PRN Reason: Constipation Famotidine (Famotidine 20 Mg Tablet) 20 mg PO DAILY [facility] Last Admin: 04/19/23 08:47 Dose: 20 mg Ferrous Sulfate (Ferrous Sulfate 324 Mg Tablet.Dr) 324 mg PO DAILY [facility] Last Admin: 04/19/23 08:47 Dose: 324 mg Furosemide (Furosemide 40 Mg/4 Ml Vial) 40 mg IVPUSH DAILY [facility]; Protocol Last Admin: 04/19/23 08:47 Dose: 40 mg Gabapentin (Gabapentin 400 Mg Capsule) 800 mg PO TID [facility] Last Admin: 04/19/23 08:47 Dose: 800 mg Glucose (Glucose Gel 15 Gm Gel..Gram.) 15 gm PO Q15M PRN; Protocol PRN Reason: per Hypoglycemia Standing Ord. Dextrose (D10) 250 mls @ 750 mls/hr IV Q15M PRN; Protocol PRN Reason: per Hypoglycemia Standing Ord. Insulin Glargine (Insulin Glargine,Hum.Rec.Anlog 100 Unit/Ml 10 Ml Vial) 24 unit SUBCUT BEDTIME [facility] Last Admin: 04/18/23 20:35 Dose: 24 unit Insulin Human Lispro (Insulin Lispro 100 Unit/Ml 3 Ml Vial) 0 unit SUBCUT QIDACHS [facility]; Protocol Last Admin: 04/19/23 11:48 Dose: Not Given Ketorolac Tromethamine (Ketorolac Tromethamine 0.5% Op 5 Ml Drops) 1 drop EYE- BOTH TID [facility] Last Admin: 04/19/23 09:28 Dose: 1 drop Non-Formulary Medication (Ramelteon) 8 mg PO BEDTIME PRN PRN Reason: Insomnia Ondansetron HCl (Ondansetron Hcl 4 Mg/2 Ml Vial) 4 mg IVPUSH Q8H PRN PRN Reason: Nausea and Vomiting Pharmacy Consult (Consult Rx Perform Med Rec) 1 each MISCELLANE ONCE PRN PRN Reason: Consult order Prednisolone Acetate (Prednisolone Acetate 1 % Oph Susp 5 Ml Drpbtl) 1 drop EYE-BOTH TID [facility] Last Admin: 04/19/23 09:28 Dose: 1 drop Sodium Chloride (0.9 % Sodium Chloride Flush 3 Ml Syringe) 3 ml IVFLUSH QSHIFT [facility] Last Admin: 04/19/23 08:39 Dose: 3 ml Tamsulosin HCl (Tamsulosin Hcl 0.4 Mg Capsule) 0.4 mg PO DAILY [facility] Last Admin: 04/19/23 09:28 Dose: 0.4 mg Ziprasidone (Ziprasidone 60 Mg Capsule) 60 mg PO BID [facility] Last Admin: 04/19/23 09:28 Dose: 60 mg Home Medications Medication Instructions Recorded Confirmed Last Taken Type dulaglutide 1.5 mg/0.5 mL 1.5 mg subcut WE@0900 09/25/20 04/18/23 01/26/23 History subcutaneous pen injector (Trulicity) metformin 1,000 mg tablet 1,000 mg PO BID 09/25/20 04/18/23 01/30/23 History insulin glargine 100 unit/mL (3 32 unit subcut BEDTIME 12/22/20 04/18/23 01/30/23 History mL) subcutaneous pen (Lantus Solostar U-100 Insulin) insulin lispro 100 unit/mL 12 unit subcut TIDAC 12/22/20 04/18/23 04/18/23 History subcutaneous pen (Humalog KwikPen (U-100) Insulin) ketorolac 0.5 % eye drops 1 drp ophthalmic (eye) TID 01/31/23 04/18/23 Unknown History prednisolone acetate 1 % eye 1 drp ophthalmic (eye) TID 01/31/23 04/18/23 Unknown History drops,suspension diphenhydramine HCl 25 mg capsule 25 mg PO BEDTIME 04/18/23 04/18/23 Unknown History (Benadryl) ferrous sulfate 325 mg (65 mg 325 mg PO DAILY 04/18/23 04/18/23 Unknown History iron) tablet furosemide 20 mg tablet (Lasix) 40 mg PO DAILY 04/18/23 04/18/23 Unknown History gabapentin 800 mg tablet 800 mg PO TID 04/18/23 04/18/23 Unknown History ramelteon 8 mg tablet 8 mg PO BEDTIME PRN Insomnia 04/18/23 04/18/23 04/17/23 History tamsulosin 0.4 mg capsule 0.4 mg PO DAILY 04/18/23 04/18/23 Unknown History ziprasidone HCl 60 mg capsule 60 mg PO BID 04/18/23 04/18/23 Unknown History (Geodon) Physical Exam Vital Signs: Last Vital Signs Temp 98.2 F 04/19/23 14:32 Pulse 84 04/19/23 14:32 Resp 22 H 04/19/23 14:32 BP 133/72 04/19/23 14:32 Pulse Ox 95 04/19/23 14:32 O2 Del Method Room Air 04/19/23 14:32 BMI result Body Mass Index 27.1 Const General: no acute distress Orientation/consciousness: patient oriented x3 Eyes EOM: EOMs intact bilaterally Neck Neck: Yes supple Cardio Rate: regular rate GI Palpation (GI): Soft to palpation Neuro General: patient oriented x3 and moves all extremities Results Lab Results 04/19/23 05:44 04/19/23 05:44 Lab results: Chemistry 04/18/23 04/19/23 11:05 05:44 Sodium 142 140 Potassium 3.6 4.3 Carbon Dioxide 23 24 BUN 19 H 25 H Creatinine 1.51 H 1.95 H Calcium 8.2 L D 8.1 L Hematology 04/18/23 04/19/23 11:05 05:44 WBC 9.6 6.7 Hgb 7.6 L 6.6 L* Plt Count 383 322 Urinalysis 04/18/23 10:48 Urine Color Yellow Urine Appearance Clear Urine pH 6.5 Ur Specific [place] 1.010 Urine Protein 300 (3+) H Urine Glucose (UA) Negative Urine Ketones Negative Urine Blood Trace H Urine Nitrite Negative Ur Leukocyte Esterase Negative Urine RBC 0-2 Urine WBC 0-5 Ur Squamous Epith Cells 0-2 Hyaline Casts 0-2 Assessment and Plan (1) Acute kidney failure: Status: Acute Time Spent With Patient Time: KWAME due to vasoconstriction from cocaine Has Diabetic nephropathy/TMA Hypervolemic; On lasix 40 mg IV daily Could increase lasix to 80 mg tid If he doesnt respond well , may need lasix infusion Will check c3/C4/ANCA if creatinine continues to rise No ACEI/ARB/NSAID's. C/W rest of current management Procedures Date of Service Date of Service: 04/19/23
[2023-04-19 16:17] LABS: Glucose, Whole Blood 167 mg/dL (60-115)
[2023-04-19 20:27] LABS: Glucose, Whole Blood 323 mg/dL (60-115)
[2023-04-19] MEDS: Insulin Lispro 100 UNIT/ML 3 ML VIAL SUBCUT (21:20)
[2023-04-19] MEDS: Insulin Glargine,Hum.rec.anlog 100 UNIT/ML 10 ML VIAL 24 UNIT SUBCUT (21:21)
[2023-04-19] MEDS: diphenhydrAMINE HCL 25 MG CAPSULE PO (21:22)
[2023-04-20] VITALS (9 sets, daily range): BP systolic 136–166; BP diastolic 73–92; PULSE 84–96; RESP 16–28; TEMP 36.2–37.4; O2SAT 89–98
[2023-04-20] MEDS: 0.9 % Sodium Chloride Flush 3 ML SYRINGE IVFLUSH ×3 (00:02→16:27)
[2023-04-20] MEDS: Melatonin 3 MG TABLET 6 MG PO (00:44)
--- NOTE | 2023-04-20 00:48 | PC.NURSE ---
Pt c/o SOB [id number]% on RA applied 2L oxygen [id number]% notified put order in for oxygen.Also wanted something for sleep had benadryl 25mg po at 2119 with no effect. ordered melatonin 6mg po given at 44.
[2023-04-20 07:42] LABS: Glucose, Whole Blood 65 mg/dL (60-115)
[2023-04-20 07:58] LABS: Glucose, Whole Blood 87 mg/dL (60-115)
[2023-04-20 08:44] LABS: Hematocrit 25.5 % (42.0-52.0); Hemoglobin 7.8 g/dl (14.0-18.0)
--- NOTE | 2023-04-20 08:44 | PM.PNNEP ---
Subjective Subjective Date of Service: 04/20/23 Interval history: Feels SOB & swollen. Physical Exam Vital Signs: Vital Signs: Last Vital Signs Temp 97.1 F 04/20/23 07:31 Pulse 90 04/20/23 07:31 Resp 24 H 04/20/23 07:31 BP 136/79 04/20/23 07:31 Pulse Ox 97 04/20/23 07:31 O2 Del Method Nasal Cannula 04/20/23 07:31 O2 Flow Rate 2 04/20/23 07:31 BMI result Body Mass Index 27.1 Const: General: no acute distress Orientation/consciousness: patient oriented x3 Eyes: EOM: EOMs intact bilaterally Resp: Auscultation: diminished lung sounds Cardio: Rate: regular rate GI: Palpation (GI): Soft to palpation Neuro: General: patient oriented x3 and moves all extremities Extrem: Other: Edematous Objective Data Labs 04/19/23 05:44 04/19/23 05:44 Labs: Laboratory Results - last 24 hr 04/19/23 04/19/23 04/19/23 05:44 09:22 11:07 POC Glucose 184 H Ferritin 56 Vitamin B12 256 Folate 12.3 Blood Type A Positive Antibody Screen NEGATIVE Crossmatch See Detail 04/19/23 04/19/23 04/20/23 16:13 20:23 07:28 POC Glucose 167 H 323 H 65 Ferritin Vitamin B12 Folate Blood Type Antibody Screen Crossmatch 04/20/23 07:54 POC Glucose 87 Ferritin Vitamin B12 Folate Blood Type Antibody Screen Crossmatch Procedures Date of Service Date of Service: 04/20/23 Assessment & Plan Assessment and plan (1) Acute kidney failure: Status: Acute Assessment and Plan: KWAME due to vasoconstriction from cocaine Has Diabetic nephropathy/TMA( biopsy proven) Hypervolemic; On lasix 40 mg IV daily Shall switch to lasix drip 10 mg/ hour Will check c3/C4/ANCA if creatinine continues to rise No ACEI/ARB/NSAID's. C/W rest of current management Progress Note: Quality Stroke Does the patient have a stroke diagnosis?: No
[2023-04-20 09:03] LABS: Anion Gap 15 (12-20); Blood Urea Nitrogen 36 mg/dL (9-16); Carbon Dioxide 20 mmol/L (22-29); Chloride 107 mmol/L (96-108); Creatinine Clr Calc Pharmacy 33.3; Estimated Glomerular Filt Rate 31; Glucose Random 131 mg/dL (60-115); Potassium 4.7 mmol/L (3.3-5.1); Sodium 137 mmol/L (135-145)
[2023-04-20] MEDS: Gabapentin 400 MG CAPSULE 800 MG PO ×2 (09:37→14:19)
[2023-04-20] MEDS: Furosemide 200 MG in 0.9 % Sodium Chloride 80 ML IVCONT (09:37)
[2023-04-20] MEDS: Famotidine 20 MG TABLET PO (09:37)
[2023-04-20] MEDS: Ferrous Sulfate 324 MG TABLET.DR PO (09:37)
[2023-04-20] MEDS: prednisoLONE Acetate 1 % Oph Susp 5 ML DRPBTL 1 DROP EYE-BOTH ×3 (09:37→21:53)
[2023-04-20] MEDS: Ketorolac Tromethamine 0.5% Op 5 ML DROPS 1 DROP EYE-BOTH ×3 (09:37→21:54)
[2023-04-20] MEDS: carvediloL 6.25 MG TABLET PO ×2 (09:38→21:51)
[2023-04-20] MEDS: Ziprasidone 60 MG CAPSULE PO ×2 (09:38→21:51)
[2023-04-20] MEDS: Tamsulosin HCL 0.4 MG CAPSULE PO (09:38)
[2023-04-20 11:29] LABS: Glucose, Whole Blood 137 mg/dL (60-115)
[2023-04-20 16:19] LABS: Glucose, Whole Blood 226 mg/dL (60-115)
--- NOTE | 2023-04-20 16:20 | HO.PM.IMPN ---
Subjective Subjective Date of Service: 04/20/23 Interval History: Anasarca? nephrotic syndrome Review of Systems Shortness of breath is similar to yesterday as well as edema. Denies any chest pain or nausea or vomiting or abdominal pain. Physical Exam Vital Signs: Vital Signs: Last Vital Signs Temp 97.8 F 04/20/23 15:14 Pulse 84 04/20/23 15:14 Resp 24 H 04/20/23 15:14 BP 139/73 04/20/23 15:14 Pulse Ox 98 04/20/23 15:14 O2 Del Method Nasal Cannula 04/20/23 15:14 O2 Flow Rate 2 04/20/23 15:14 BMI result Body Mass Index 27.1 Appearance: Alert.? Oriented X3.?mild sob. cvs: rrr, [id number]. res: air entry seems fair,slightly siminshed at bases ,no rales abd: no rebound or guarding ,nt, bs present. ext pulses present , no cyanosis neuro: axo3 , nonfocal. Objective Data Active Medications Acetaminophen (Acetaminophen 325 Mg Tablet) 650 mg PO Q6H PRN PRN Reason: Pain, Mild (Pain Scale 1-3) Carvedilol (Carvedilol 6.25 Mg Tablet) 6.25 mg PO BID [facility]; Protocol Last Admin: 04/20/23 09:38 Dose: 6.25 mg Documented By: CELI Diphenhydramine HCl (Diphenhydramine Hcl 25 Mg Capsule) 25 mg PO BEDTIME [facility] Last Admin: 04/19/23 21:22 Dose: 25 mg Documented By: CAT Docusate Sodium (Docusate Sodium 100 Mg Capsule) 100 mg PO DAILY PRN PRN Reason: Constipation Famotidine (Famotidine 20 Mg Tablet) 20 mg PO DAILY [facility] Last Admin: 04/20/23 09:37 Dose: 20 mg Documented By: CELI Ferrous Sulfate (Ferrous Sulfate 324 Mg Tablet.) 324 mg PO DAILY [facility] Last Admin: 04/20/23 09:37 Dose: 324 mg Documented By: CELI Gabapentin (Gabapentin 400 Mg Capsule) 800 mg PO TID [facility] Last Admin: 04/20/23 14:19 Dose: 800 mg Documented By: CELI Glucose (Glucose Gel 15 Gm Gel..Gram.) 15 gm PO Q15M PRN; Protocol PRN Reason: per Hypoglycemia Standing Ord. Dextrose (D10) 250 mls @ 750 mls/hr IV Q15M PRN; Protocol PRN Reason: per Hypoglycemia Standing Ord. Furosemide 200 mg/ Sodium (Chloride) 100 mls @ 5 mls/hr IVCONT .Q20H [facility] Last Admin: 04/20/23 09:37 Dose: 10 mg/hr, 5 mls/hr Documented By: CELI Insulin Glargine (Insulin Glargine,Hum.Rec.Anlog 100 Unit/Ml 10 Ml Vial) 24 unit SUBCUT BEDTIME [facility] Last Admin: 04/19/23 21:21 Dose: 24 unit Documented By: CAT Insulin Human Lispro (Insulin Lispro 100 Unit/Ml 3 Ml Vial) 0 unit SUBCUT QIDACHS [facility]; Protocol Last Admin: 04/20/23 12:04 Dose: Not Given Documented By: CELI Non-Admin Reason: No Insulin Coverage Ketorolac Tromethamine (Ketorolac Tromethamine 0.5% Op 5 Ml Drops) 1 drop EYE-BOTH TID [facility] Last Admin: 04/20/23 14:29 Dose: 1 drop Documented By: CELI Melatonin (Melatonin 3 Mg Tablet) 6 mg PO BEDTIME PRN PRN Reason: Insomnia Last Admin: 04/20/23 00:44 Dose: 6 mg Documented By: RAAD Non-Formulary Medication (Ramelteon) 8 mg PO BEDTIME PRN PRN Reason: Insomnia Ondansetron HCl (Ondansetron Hcl 4 Mg/2 Ml Vial) 4 mg IVPUSH Q8H PRN PRN Reason: Nausea and Vomiting Pharmacy Consult (Consult Rx Perform Med Rec) 1 each MISCELLANE ONCE PRN PRN Reason: Consult order Prednisolone Acetate (Prednisolone Acetate 1 % Oph Susp 5 Ml Drpbtl) 1 drop EYE-BOTH TID [facility] Last Admin: 04/20/23 14:29 Dose: 1 drop Documented By: CELI Sodium Chloride (0.9 % Sodium Chloride Flush 3 Ml Syringe) 3 ml IVFLUSH QSHIFT [facility] Last Admin: 04/20/23 09:38 Dose: 3 ml Documented By: CELI Tamsulosin HCl (Tamsulosin Hcl 0.4 Mg Capsule) 0.4 mg PO DAILY [facility] Last Admin: 04/20/23 09:38 Dose: 0.4 mg Documented By: CELI Ziprasidone (Ziprasidone 60 Mg Capsule) 60 mg PO BID [facility] Last Admin: 04/20/23 09:38 Dose: 60 mg Documented By: CELI Labs 04/20/23 08:21 04/20/23 08:21 Labs: Laboratory Results - last 24 hr 04/19/23 04/19/23 04/20/23 05:44 20:23 07:28 Smear Path Review Anion Gap Estim Creat Clear Calc Estimated GFR POC Glucose 323 H 65 Random Glucose Calcium 04/20/23 04/20/23 04/20/23 07:54 08:21 11:22 Smear Path Review Anion Gap 15 Estim Creat Clear Calc 33.3 Estimated GFR 31 POC Glucose 87 137 H Random Glucose 131 H Calcium 8.0 L 04/20/23 16:10 Smear Path Review Anion Gap Estim Creat Clear Calc Estimated GFR POC Glucose 226 H Random Glucose Calcium Assessment and Plan (1) Anasarca: Status: Acute (2) Nephrotic syndrome: Status: Acute (3) Anemia: Status: Acute Plan 57 year old male with chronic normocytic anemia, htn, hld, diabetic polyneuropathy, diabetic nephropathy, chronic pain syndrome, insulin dependent type 2 diabetes, and depression admitted for anasarca associated with nephrotic syndome. Anasarca related to nephrotic syndrome (possible due to diabetic nephropathy) Bx 02/10 showing diabetic nephropathy and TMA. CARA negative,also cocaine positive UA with 3+ proteinuria. crestinine worsening 2.16 Strict I&O, greco catheter for fluid management,Low sodium diet IV lasix drip ,continue albumin nephro eval noted-continue above. Acute kidney injury-related to above CKD stage 3 at baseline Continue diuresis,Follow BMP Bilateral pleural effusions-related to above, BNP elevated but baseline Echo 02/10 showed HFpEF, EF 55-60% Continue diuresis as above, stict I&O anemia normocytic: Possible anemia chronic disease s/p 1 prbc : h/h-7.8/25.5 Patient denies any melena or angelo blood in the stool iron studies low iron ,tibc ,ferritin normal fobt neg in january, insulin-dependent type 2 diabetes with hyperglycemia fs 80-200 Diabetic diet,Continue current insulin regimen,Hold PO antihyperglycemics HTN- controlled continue coreg to 6.125 BID Chronic normocytic anemia-Likely r/t chronic disease H/H above transfusion threshold Follow CBC Cocaine abuse-Utox positive Addiction med consult Hep C ab positive-Viral load pending DVT prophylaxis- hold lovenox. [facility] devices Full code inpatient need:Anasarca related to nephrotic syndrome (possible due to diabetic nephropathy)- need iv lasix ,i/o monitering Time Spent With Patient Time: Total time managing care of this patient today ____ minutes. Quality Stroke Does the patient have a stroke diagnosis?: No VTE Prior VTE?: No VTE Risk Level:: Medical - moderate - high VTE Device Contraindication: Treatment Not Indicated VTE Drug Contraindication: N/A - Med Ordered
[2023-04-20] MEDS: Insulin Lispro 100 UNIT/ML 3 ML VIAL SUBCUT ×2 (16:34→21:52)
--- NOTE | 2023-04-20 17:47 | PC.NURSE ---
Addendum entered by Josie Davies RN 04/20/23 18:51: Mely safety deposit supervisor unable to obtain iv access,she will send another experienced nurse to try Original Note: ok to pause lasix drip to infuse Albumin per Dr. Rubi,unable to obtain 2-nd IV site ,asked [facility] safety deposit supervisor Mely for assistance
[2023-04-20] MEDS: Albumin Human 25 % 100 ML IV (17:51)
[2023-04-20] MEDS: guaiFENesin 200 MG/10 ML 10 ML LIQUID PO (18:58)
[2023-04-20] MEDS: Acetaminophen 325 MG TABLET 650 MG PO (19:44)
[2023-04-20 19:57] LABS: Hemoglobin 7.5 g/dl (14.0-18.0)
[2023-04-20 20:50] LABS: Glucose, Whole Blood 277 mg/dL (60-115)
[2023-04-20] MEDS: Gabapentin 100 MG CAPSULE 200 MG PO (21:51)
[2023-04-20] MEDS: diphenhydrAMINE HCL 25 MG CAPSULE PO (21:51)
[2023-04-20] MEDS: Insulin Glargine,Hum.rec.anlog 100 UNIT/ML 10 ML VIAL 24 UNIT SUBCUT (21:52)
[2023-04-21] VITALS (8 sets, daily range): BP systolic 120–161; BP diastolic 66–82; PULSE 77–97; RESP 17–30; TEMP 36.3–37.2; O2SAT 94–99
--- NOTE | 2023-04-21 | ECG_ITS ---
Test Reason : cp Blood Pressure : / mmHG Vent. Rate : 090 BPM Atrial Rate : 090 BPM P-R Int : 116 ms QRS Dur : 076 ms QT Int : 356 ms P-R-T Axes : 034 023 026 degrees QTc Int : 435 ms Normal sinus rhythm Normal ECG When compared with ECG of 18-APR-2023 09:50, Criteria for Septal infarct are no longer Present Nonspecific T wave abnormality now evident in Inferior leads Referred By: Lore Chew Electronically Signed By:ROOSEVELT HENDRICKS MD
[2023-04-21] MEDS: Albumin Human 25 % 100 ML IV ×4 (00:16→17:27)
[2023-04-21] MEDS: 0.9 % Sodium Chloride Flush 3 ML SYRINGE IVFLUSH ×2 (00:20→16:18)
[2023-04-21] MEDS: Furosemide 200 MG in 0.9 % Sodium Chloride 80 ML IVCONT ×2 (01:55→22:30)
[2023-04-21 06:38] LABS: Alanine Aminotransferase 22 U/L (0-40); Albumin Level 3.3 g/dL (3.5-5.0); Alkaline Phosphatase 167 U/L (39-117); Anion Gap 14 (12-20); Aspartate Amino Transferase 48 U/L (5-37); Bilirubin Total 0.4 mg/dL (0.0-1.0); Blood Urea Nitrogen 43 mg/dL (9-16); Calcium 8.1 mg/dL (8.4-10.2); Carbon Dioxide 22 mmol/L (22-29); Chloride 106 mmol/L (96-108); Creatinine Clr Calc Pharmacy 32.9; Estimated Glomerular Filt Rate 31; Glucose Random 83 mg/dL (60-115); Potassium 4.4 mmol/L (3.3-5.1); Sodium 138 mmol/L (135-145); Total Protein 6.6 g/dL (6.5-8.0)
[2023-04-21 08:19] LABS: Glucose, Whole Blood 77 mg/dL (60-115)
[2023-04-21 08:23] LABS: HCV Log PCR <1.18 NOT DETECTED Log IU/mL (NOT DETECTED); HepC Viral Load <15 NOT DETECTED IU/mL (NOT DETECTED)
[2023-04-21] MEDS: Famotidine 20 MG TABLET PO (09:17)
[2023-04-21] MEDS: Ferrous Sulfate 324 MG TABLET.DR PO (09:17)
[2023-04-21] MEDS: Tamsulosin HCL 0.4 MG CAPSULE PO (09:18)
[2023-04-21] MEDS: prednisoLONE Acetate 1 % Oph Susp 5 ML DRPBTL 1 DROP EYE-BOTH ×2 (09:18→15:37)
[2023-04-21] MEDS: Ketorolac Tromethamine 0.5% Op 5 ML DROPS 1 DROP EYE-BOTH ×2 (09:18→15:37)
[2023-04-21] MEDS: Ziprasidone 60 MG CAPSULE PO ×2 (09:18→22:32)
[2023-04-21] MEDS: Gabapentin 100 MG CAPSULE 200 MG PO ×3 (09:18→22:31)
[2023-04-21 09:55] LABS: Procalcitonin 0.18 ng/mL
--- NOTE | 2023-04-21 10:56 | PC.NURSE ---
Pt transferred to med/tele floor for higher level of care, report given to Bernie FAGAN. No issues.
[2023-04-21 11:29] LABS: Glucose, Whole Blood 173 mg/dL (60-115)
--- NOTE | 2023-04-21 12:14 | PM.PNNEP ---
Subjective Subjective Date of Service: 04/21/23 Interval history: Feels swollen & SOB Physical Exam Vital Signs: Vital Signs: Last Vital Signs Temp 97.4 F 04/21/23 11:10 Pulse 97 04/21/23 11:10 Resp 20 04/21/23 11:10 BP 150/72 H 04/21/23 11:10 Pulse Ox 98 04/21/23 11:10 O2 Del Method Nasal Cannula 04/21/23 11:10 O2 Flow Rate 3 04/21/23 11:10 BMI result Body Mass Index 27.1 Const: General: no acute distress Orientation/consciousness: patient oriented x3 Eyes: EOM: EOMs intact bilaterally Resp: Auscultation: diminished lung sounds Cardio: Rate: regular rate GI: Palpation (GI): Soft to palpation Neuro: General: patient oriented x3 and moves all extremities Extrem: Other: Edematous Objective Data Labs 04/20/23 19:29 04/21/23 05:41 Labs: Laboratory Results - last 24 hr 04/18/23 04/20/23 04/20/23 17:07 16:10 19:29 Hgb 7.5 L Hct 24.0 L Sodium Potassium Chloride Carbon Dioxide Anion Gap BUN Creatinine Estim Creat Clear Calc Estimated GFR POC Glucose 226 H Random Glucose Calcium Total Bilirubin AST ALT Alkaline Phosphatase Total Protein Albumin Procalcitonin Hep C Viral Load <15 NOT DETECTED Hep C Viral Load Log <1.18 NOT DETECTED 04/20/23 04/21/23 04/21/23 20:42 05:41 07:45 Hgb Hct Sodium 138 Potassium 4.4 Chloride 106 Carbon Dioxide 22 Anion Gap 14 BUN 43 H Creatinine 2.22 H Estim Creat Clear Calc 32.9 Estimated GFR 31 POC Glucose 277 H 77 Random Glucose 83 Calcium 8.1 L Total Bilirubin 0.4 AST 48 H ALT 22 Alkaline Phosphatase 167 H Total Protein 6.6 Albumin 3.3 L Procalcitonin 0.18 Hep C Viral Load Hep C Viral Load Log 04/21/23 11:07 Hgb Hct Sodium Potassium Chloride Carbon Dioxide Anion Gap BUN Creatinine Estim Creat Clear Calc Estimated GFR POC Glucose 173 H Random Glucose Calcium Total Bilirubin AST ALT Alkaline Phosphatase Total Protein Albumin Procalcitonin Hep C Viral Load Hep C Viral Load Log Procedures Date of Service Date of Service: 04/21/23 Assessment & Plan Assessment and plan (1) Acute kidney failure: Status: Acute Assessment and Plan: KWAME due to vasoconstriction from cocaine Has Diabetic nephropathy/TMA( biopsy proven) Hypervolemic; switched to lasix drip 10 mg/ hour yesterday Gave 10 mg Metolazone today Will check c3/C4/ANCA if creatinine continues to rise( unlikely yield) No ACEI/ARB/NSAID's. C/W rest of current management Progress Note: Quality Stroke Does the patient have a stroke diagnosis?: No
[2023-04-21 12:16] LABS: Adenovirus PCR Not Detected (Not Detect.); Bordetella parapertussis PCR Not Detected (Not Detect.); Bordetella pertussis PCR Not Detected (Not Detect.); Chlamydia pneumoniae PCR Not Detected (Not Detect.); Coronavirus 229E PCR Not Detected (Not Detect.); Coronavirus HKU1 PCR Not Detected (Not Detect.); Coronavirus NL63 PCR Not Detected (Not Detect.); Coronavirus OC43 PCR Not Detected (Not Detect.); Human metapneumovirus PCR Not Detected (Not Detect.); Influenza A PCR Not Detected (Not Detect.); Influenza B PCR Not Detected (Not Detect.); Parainfluenza 3 PCR Detected (Not Detect.); Rhino/Enterovirus PCR Detected (Not Detect.); SARS-CoV-2 PCR Not Detected (Not Detect.)
[2023-04-21 12:17] LABS: Mycoplasma pneumoniae PCR Not Detected (Not Detect.); Parainfluenza 1 PCR Not Detected (Not Detect.); Parainfluenza 2 PCR Not Detected (Not Detect.); Parainfluenza 4 PCR Not Detected (Not Detect.); RSV PCR Not Detected (Not Detect.)
[2023-04-21] MEDS: metOLazone 5 MG TABLET 10 MG PO (12:19)
[2023-04-21 16:10] LABS: Glucose, Whole Blood 205 mg/dL (60-115)
[2023-04-21] MEDS: Insulin Lispro 100 UNIT/ML 3 ML VIAL SUBCUT (16:18)
--- NOTE | 2023-04-21 17:14 | P.PNIM_ITS ---
Subjective Subjective Date of Service: 04/21/23 Interval History: Anasarca? nephrotic syndrome Review of Systems sob similar to yesterday Denies any chest pain or abdominal pain Has some nausea Physical Exam Vital Signs: Vital Signs: Last Vital Signs Temp 98.6 F 04/21/23 15:17 Pulse 89 04/21/23 15:17 Resp 20 04/21/23 15:17 BP 161/82 H 04/21/23 15:17 Pulse Ox 99 04/21/23 15:17 O2 Del Method Nasal Cannula 04/21/23 15:17 O2 Flow Rate 3 04/21/23 15:17 BMI result Body Mass Index 27.1 Appearance: Alert.? Oriented X3.?mild sob. cvs: rrr, [id number]. res: air entry seems fair,slightly siminshed at bases ,no rales abd: no rebound or guarding ,nt, bs present. ext pulses present , no cyanosis neuro: axo3 , nonfocal. Objective Data Active Medications Acetaminophen (Acetaminophen 325 Mg Tablet) 650 mg PO Q6H PRN PRN Reason: Pain, Mild (Pain Scale 1-3) Last Admin: 04/20/23 19:44 Dose: 650 mg Documented By: TALON Carvedilol (Carvedilol 6.25 Mg Tablet) 6.25 mg PO BID [facility]; Protocol Last Admin: 04/20/23 21:51 Dose: 6.25 mg Documented By: TALON Diphenhydramine HCl (Diphenhydramine Hcl 25 Mg Capsule) 25 mg PO BEDTIME [facility] Last Admin: 04/20/23 21:51 Dose: 25 mg Documented By: TALON Docusate Sodium (Docusate Sodium 100 Mg Capsule) 100 mg PO DAILY PRN PRN Reason: Constipation Famotidine (Famotidine 20 Mg Tablet) 20 mg PO DAILY [facility] Last Admin: 04/21/23 09:17 Dose: 20 mg Documented By: NICOL Ferrous Sulfate (Ferrous Sulfate 324 Mg Tablet.) 324 mg PO DAILY [facility] Last Admin: 04/21/23 09:17 Dose: 324 mg Documented By: NICOL Gabapentin (Gabapentin 100 Mg Capsule) 200 mg PO TID [facility] Last Admin: 04/21/23 14:39 Dose: 200 mg Documented By: FOSTEKTiffanie Glucose (Glucose Gel 15 Gm Gel..Gram.) 15 gm PO Q15M PRN; Protocol PRN Reason: per Hypoglycemia Standing Ord. Guaifenesin (Guaifenesin 200 Mg/10 Ml 10 Ml Liquid) 10 ml PO Q6H PRN PRN Reason: Cough Last Admin: 04/20/23 18:58 Dose: 10 ml Documented By: CAT Dextrose (D10) 250 mls @ 750 mls/hr IV Q15M PRN; Protocol PRN Reason: per Hypoglycemia Standing Ord. Furosemide 200 mg/ Sodium (Chloride) 100 mls @ 5 mls/hr IVCONT .Q20H [facility] Last Admin: 04/21/23 05:05 Dose: Not Given Documented By: TALON Non-Admin Reason: IV Running Albumin Human (Kedbumin 25 %) 100 mls @ 100 mls/hr IV Q6H [facility] Stop: 04/22/23 00:59 Insulin Glargine (Insulin Glargine,Hum.Rec.Anlog 100 Unit/Ml 10 Ml Vial) 24 unit SUBCUT BEDTIME [facility] Last Admin: 04/20/23 21:52 Dose: 24 unit Documented By: TALON Insulin Human Lispro (Insulin Lispro 100 Unit/Ml 3 Ml Vial) 0 unit SUBCUT QIDACHS [facility]; Protocol Last Admin: 04/21/23 16:18 Dose: 2 unit Documented By: JAVIER Ketorolac Tromethamine (Ketorolac Tromethamine 0.5% Op 5 Ml Drops) 1 drop EYE- BOTH TID [facility] Last Admin: 04/21/23 15:37 Dose: 1 drop Documented By: JAVIER Melatonin (Melatonin 3 Mg Tablet) 6 mg PO BEDTIME PRN PRN Reason: Insomnia Last Admin: 04/20/23 00:44 Dose: 6 mg Documented By: RAAD Ondansetron HCl (Ondansetron Hcl 4 Mg/2 Ml Vial) 4 mg IVPUSH Q8H PRN PRN Reason: Nausea and Vomiting Pharmacy Consult (Consult Rx Perform Med Rec) 1 each MISCELLANE ONCE PRN PRN Reason: Consult order Prednisolone Acetate (Prednisolone Acetate 1 % Oph Susp 5 Ml Drpbtl) 1 drop EYE-BOTH TID [facility] Last Admin: 04/21/23 15:37 Dose: 1 drop Documented By: HO.FOSTEKR Sodium Chloride (0.9 % Sodium Chloride Flush 3 Ml Syringe) 3 ml IVFLUSH QSHIFT [facility] Last Admin: 04/21/23 16:18 Dose: 3 ml Documented By: JAVIER Tamsulosin HCl (Tamsulosin Hcl 0.4 Mg Capsule) 0.4 mg PO DAILY [facility] Last Admin: 04/21/23 09:18 Dose: 0.4 mg Documented By: NICOL Ziprasidone (Ziprasidone 60 Mg Capsule) 60 mg PO BID [facility] Last Admin: 04/21/23 09:18 Dose: 60 mg Documented By: NICOL Labs 04/20/23 19:29 04/21/23 05:41 Labs: Laboratory Results - last 24 hr 04/18/23 04/20/23 04/21/23 17:07 20:42 05:41 Anion Gap 14 Estim Creat Clear Calc 32.9 Estimated GFR 31 POC Glucose 277 H Random Glucose 83 Calcium 8.1 L Total Bilirubin 0.4 AST 48 H ALT 22 Alkaline Phosphatase 167 H Total Protein 6.6 Albumin 3.3 L Procalcitonin 0.18 Respiratory Panel [facility] Adenovirus (Rapid PCR) B.pert (TEM-PCR) B.parapertussis DNA PCR C. pneumoniae DNA (PCR) Coronavirus OC43 (PCR) Coronavirus HKU1 (PCR) Coronavirus 229E (PCR) Coronavirus NL63 (PCR) Hep C Viral Load <15 NOT DETECTED Hep C Viral Load Log <1.18 NOT DETECTED Human Metapneumovir PCR Influenza A (RT-PCR) Influenza B (RT-PCR) M. pneumoniae (PCR) Parainfluenza 1 (PCR) Parainfluenza 2 (PCR) Parainfluenza 3 (PCR) Parainfluenza 4 (PCR) RSV (PCR) Entero/Rhino (PCR) SARS-CoV-2 RNA (RT-PCR) 04/21/23 04/21/23 04/21/23 07:45 09:45 11:07 Anion Gap Estim Creat Clear Calc Estimated GFR POC Glucose 77 173 H Random Glucose Calcium Total Bilirubin AST ALT Alkaline Phosphatase Total Protein Albumin Procalcitonin Respiratory Panel [facility] See Note Adenovirus (Rapid PCR) Not Detected B.pert (TEM-PCR) Not Detected B.parapertussis DNA PCR Not Detected C. pneumoniae DNA (PCR) Not Detected Coronavirus OC43 (PCR) Not Detected Coronavirus HKU1 (PCR) Not Detected Coronavirus 229E (PCR) Not Detected Coronavirus NL63 (PCR) Not Detected Hep C Viral Load Hep C Viral Load Log Human Metapneumovir PCR Not Detected Influenza A (RT-PCR) Not Detected Influenza B (RT-PCR) Not Detected M. pneumoniae (PCR) Not Detected Parainfluenza 1 (PCR) Not Detected Parainfluenza 2 (PCR) Not Detected Parainfluenza 3 (PCR) Detected A Parainfluenza 4 (PCR) Not Detected RSV (PCR) Not Detected Entero/Rhino (PCR) Detected A SARS-CoV-2 RNA (RT-PCR) Not Detected 04/21/23 16:06 Anion Gap Estim Creat Clear Calc Estimated GFR POC Glucose 205 H Random Glucose Calcium Total Bilirubin AST ALT Alkaline Phosphatase Total Protein Albumin Procalcitonin Respiratory Panel [place] Adenovirus (Rapid PCR) B.pert (TEM-PCR) B.parapertussis DNA PCR C. pneumoniae DNA (PCR) Coronavirus OC43 (PCR) Coronavirus HKU1 (PCR) Coronavirus 229E (PCR) Coronavirus NL63 (PCR) Hep C Viral Load Hep C Viral Load Log Human Metapneumovir PCR Influenza A (RT-PCR) Influenza B (RT-PCR) M. pneumoniae (PCR) Parainfluenza 1 (PCR) Parainfluenza 2 (PCR) Parainfluenza 3 (PCR) Parainfluenza 4 (PCR) RSV (PCR) Entero/Rhino (PCR) SARS-CoV-2 RNA (RT-PCR) Assessment and Plan (1) Acute kidney failure: Status: Acute (2) Anasarca: Status: Acute (3) Nephrotic syndrome: Status: Acute Plan 57 year old male with chronic normocytic anemia, htn, hld, diabetic polyneuropathy, diabetic nephropathy, chronic pain syndrome, insulin dependent type 2 diabetes, and depression admitted for anasarca associated with nephrotic syndome. Anasarca related to nephrotic syndrome (possible due to diabetic nephropathy) Bx 02/10 showing diabetic nephropathy and TMA. ?CARA negative,also cocaine positive UA with 3+ proteinuria. creatinine similar to yesterday vbg-ph seems maintained and cxr noted-seems similar . Strict I&O, greco catheter for fluid management,Low sodium diet advised patient for restrict fluids 1.5liter IV lasix drip ,continue albumin nephro eval noted-continue above. Acute kidney injury-related to above CKD stage 3 at baseline Continue diuresis,Follow BMP Bilateral pleural effusions-related to above, BNP elevated but baseline Echo 02/10 showed HFpEF, EF 55-60% Continue diuresis as above, stict I&O anemia normocytic: Possible anemia chronic disease s/p 1 prbc : h/h-7.04/13 Patient denies any melena or angelo blood in the stool iron studies low iron ,tibc ,ferritin normal fobt neg in january, insulin-dependent type 2 diabetes with hyperglycemia fs 130-200 Diabetic diet,Continue? current insulin regimen,Hold PO antihyperglycemics HTN- controlled continue coreg to 6.125 BID Chronic normocytic anemia-Likely r/t chronic disease H/H above transfusion threshold Follow CBC Cocaine abuse-Utox positive Addiction med consult Hep C ab positive-Viral load pending DVT prophylaxis- hold lovenox. ?[facility] devices Full code inpatient? need:Anasarca related to nephrotic syndrome (possible due to diabetic nephropathy)- need iv lasix ,i/o monitering Time Spent With Patient Time: Total time managing care of this patient today ____ minutes. Quality Stroke Does the patient have a stroke diagnosis?: No VTE Prior VTE?: No VTE Risk Level:: Medical - moderate - high VTE Device Contraindication: Treatment Not Indicated VTE Drug Contraindication: N/A - Med Ordered
--- NOTE | 2023-04-21 17:46 | P.CDIM_ITS ---
PROVIDER RESPONSE TEXT: To clarify, the appropriate diagnosis supported by the clinical indicators: Unable to determine QUERY TEXT: PHYSICIAN'S DOCUMENTATION REQUEST Date of Query: 04/21/2023 07:34 AM EDT Patient Name: Yao Rivera Admit Date: 04/18/2023 Dear Fadia Rubi, A review of the medical record indicates additional documentation may be needed. Please review below and update the documentation accordingly. Clinical Indicators: Iron studies low: 23 L H/H: 6.6/21.5 Transfused 1 unit PRBC Based on the above, could you clarify which of the following is the most likely type of anemia you ar e evaluating, treating, and/or monitoring? Iron deficiency anemia Iron deficiency anemia due to chronic blood loss Iron deficiency anemia due to acute on chronic blood loss Unable to determine Other (explain)Clinically unable to determine (explain)Thank you, Soumya Grimes, CCS, CDIS Use of terms such as suspected, likely, concern for, or probable (associated with a specific diagnosi s that is being evaluated, monitored, or treated as if it exists) are acceptable and can be coded in the inpatient se tting, when documented at the time of discharge. Please use your independent medical judgment in providing your response. THIS QUERY IS PART OF THE PERMANENT MEDICAL RECORD
[2023-04-21] MEDS: carvediloL 6.25 MG TABLET PO (19:16)
[2023-04-21] MEDS: Morphine Sulfate 4 MG/ML CARTRIDGE IVPUSH (19:29)
[2023-04-21] MEDS: Labetalol HCL 100 MG/20 ML VIAL 10 MG IVPUSH (19:29)
[2023-04-21 20:10] LABS: Troponin-I High Sensitivity 13.7 ng/L (<3.5-35.0)
[2023-04-21] MEDS: diphenhydrAMINE HCL 25 MG CAPSULE PO (22:32)
[2023-04-21 22:36] LABS: Glucose, Whole Blood 144 mg/dL (60-115)
[2023-04-21] MEDS: Insulin Glargine,Hum.rec.anlog 100 UNIT/ML 10 ML VIAL 20 UNIT SUBCUT (22:38)
[2023-04-21 23:01] LABS: B Type Natriuretic Peptide 1262 pg/mL (<100)
[2023-04-22] VITALS (22 sets, daily range): BP systolic 127–174; BP diastolic 66–84; PULSE 80–94; RESP 14–30; TEMP 36.7–39.1; O2SAT 91–100
--- NOTE | 2023-04-22 | ECG_ITS ---
Test Reason : chest pain Blood Pressure : / mmHG Vent. Rate : 091 BPM Atrial Rate : 091 BPM P-R Int : 130 ms QRS Dur : 076 ms QT Int : 346 ms P-R-T Axes : 041 023 063 degrees QTc Int : 425 ms Normal sinus rhythm Normal ECG When compared with ECG of 21-APR-2023 19:18, Nonspecific T wave abnormality no longer evident in Inferior leads Referred By: Fadia Rubi Electronically Signed By:ROOSEVELT HENDRICKS MD
[2023-04-22] MEDS: Albumin Human 25 % 100 ML IV ×4 (00:03→20:42)
[2023-04-22] MEDS: Morphine Sulfate 4 MG/ML CARTRIDGE IM (05:10)
--- NOTE | 2023-04-22 06:19 | PM.EVENT ---
Event Note Date of Service: 04/22/23 Event Note: pt did develope fever overnight. will add UA. Blood cultures and broad spectrum abx started Time Spent With Patient Time: Total time managing care of this patient today ____ minutes.
[2023-04-22 06:44] LABS: Lactic Acid 0.5 mmol/L (0.5-2.0)
--- NOTE | 2023-04-22 07:00 | CA_ITS ---
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 Low normal LV systolic function with mild LVH with grade 3 diastolic dysfunction 2. Severely elevated right ventricular systolic pressure was significantly elevated right atrial pressures 3. Trivial pericardial effusion Findings Left Ventricle Normal left ventricular cavity size. There is mildly increased left ventricular wall thickness. The left ventricular systolic function is low normal. The visually estimated ejection fraction is between 50-55%. Spectral Doppler is indicative of a restrictive filling pattern. E/E prime ratio is >15, consistent with elevated filling pressures. Evidence suggests grade III (severe) diastolic dysfunction. Tricuspid Valve There is mild tricuspid valve regurgitation. Significantly elevated right atrial pressure. Severe pulmonary hypertension is present. Venous The inferior vena cava is mildly dilated and does not collapse with inspiration. Pericardium/Pleural There is a trivial circumferential pericardial effusion. Prior Study Comparison Changes noted compared to prior study dated: 02/01/2023. RV systolic pressure is significantly elevated Measurements 2D Linear Measurements IVSd: 1.45 0.6-0.9/0.6-1.0 cm LVIDd: 4.35 3.9-5.3/4.2-5.9 cm LVIDd Index: 2.51 2.4-3.2/2.2-3.1 cm/m2 LVIDs: 3.21 2.0-3.6 cm LVPWd: 1.31 0.7-1.1 cm LV Mass: 288.20 67-162/88-224 g LV Mass Index: 166.59 43-95/49-115 g/m2 LVOT Diam: 2.00 3.0+(-)1.3 cm LVOT LVOT Pk Nato: 0.99 LVOT Mn Nato: 0.61 LVOT VTI: 0.17 LVOT Pk Grad: 4.00 LVOT Mn Grad: 2.00 LVOT Diam: 2.00 LVOT Area: 3.14 Right Ventricle TAPSE (mm): 17.10 TVS' Nato: 11.90 Tricuspid Valve TR Pk Nato: 3.88 TR Pk Grad: 60.00 RA Press: 15.00 RVSP: 75.00 Updated in Other Vendor System with Status of Final Aston Jason MD electronically signed on 04/22/2023 3:35:56 PM with status of Final
[2023-04-22 07:18] LABS: Hematocrit 20.2 % (42.0-52.0); Hemoglobin 6.3 g/dl (14.0-18.0)
[2023-04-22 07:24] LABS: Appearance Urine Clear; Color Urine Yellow; Glucose Urine UA Negative (Negative); Leukocyte Esterase Urine Negative (Negative); Nitrite Urine Negative (Negative); PH 5.5 (5.0-9.0); UMIC TRIGGER UACC YES; Urine Blood Moderate (2+) (Negative); Urine Ketones Negative (Negative); Urine Protein 300 (3+) mg/dL (Neg-Trace)
[2023-04-22 07:37] LABS: Bacteria Urine 2+ (None Seen); Squamous Epithelial Cell Urine 0-2 /HPF (0-2); WBC Urine 0-5 /HPF (0-5)
[2023-04-22 07:38] LABS: Glucose, Whole Blood 69 mg/dL (60-115)
[2023-04-22] MEDS: Dextrose 10 % 250 ML 750 ML IV (07:55)
[2023-04-22 07:58] LABS: Anion Gap 16 (12-20); Blood Urea Nitrogen 57 mg/dL (9-16); Calcium 8.3 mg/dL (8.4-10.2); Carbon Dioxide 23 mmol/L (22-29); Chloride 105 mmol/L (96-108); Creatinine Clr Calc Pharmacy 26.8; Estimated Glomerular Filt Rate 24; Glucose Random 66 mg/dL (60-115); Potassium 5.1 mmol/L (3.3-5.1); Sodium 139 mmol/L (135-145)
--- NOTE | 2023-04-22 08:20 | PHA.PROG ---
Admission Date/Time: April 18, 2023 14:58 Indication: SEPSIS Weight in k.4 kg Adjusted body weight in K.9 KG Brohman body weight in K.9 KG Obesity Dosing Indication % IBW: Serum Creatinine - Last 168 Hours 04/18/23 04/19/23 04/20/23 11:05 05:44 08:21 Creatinine 1.51 H 1.95 H 2.19 H 04/21/23 04/22/23 05:41 06:22 Creatinine 2.22 H 2.72 H Estimated CrCl and GFR - Last 168 Hours 04/18/23 04/19/23 04/20/23 11:05 05:44 08:21 Estim Creat Clear Calc 48.3 37.4 33.3 Estimated GFR 48 36 31 04/21/23 04/22/23 05:41 06:22 Estim Creat Clear Calc 32.9 26.8 Estimated GFR 31 24 Vancomycin Loading Dose: 1750 MG X 1 Current Vancomycin Dosing Regimen: 750 MG Q24H Vancomycin Monitoring using AUC goal of 400 - 600 range with trough as surrogate marker: PREDICTED AUC 490, TROUGH 16.4 Date and Time for next Vancomycin Level to be drawn: RANDOM 04/23/23 @0700 Pharmacist Comments on Vancomycin Plan: KWAME ON CKD STAGE 3, RANDOM LEVEL TO BE DRAWN AFTER LOADING DOSE. CREATININE INCREASING SINCE 04/19/23 Vancomycin dosing will take advantage of [employer] as a clinical decision support tool that uses Bayesian modeling to calculate individual patient's pharmacokinetic parameters and forecast the patient's drug concentration time course with the target goal AUC 24 range of 400 - 600 mg/L/hr.
[2023-04-22 08:23] LABS: Glucose, Whole Blood 162 mg/dL (60-115)
[2023-04-22] MEDS: vancomycin HCL 1,000 MG, vancomycin HCL 750 MG in 0.9 % Sodium Chloride 500 ML 267.5 MG IV (08:26)
[2023-04-22 09:15] LABS: Glucose, Whole Blood 110 mg/dL (60-115)
[2023-04-22 09:24] LABS: Magnesium 2.2 mg/dL (1.6-2.6)
[2023-04-22 09:26] LABS: MANUAL DIFF FLAG NO
[2023-04-22 09:29] LABS: Basophils Percent Auto 0.3 % (0-2); Eosinophils Absolute Auto 0.1 X10*3/uL (0.0-0.4); Imm Gran Abs Auto 0.05 X10*3/uL (0.00-0.03); Imm Gran Pct Auto 0.6 % (0.0-0.4); Lymphocytes Percent Auto 12.8 % (20-40); Mean Corpuscular HGB Conc 30.6 g/dl (31.0-36.0); Mean Corpuscular Volume 88.4 fL (80.0-98.0); Monocytes Absolute Auto 0.8 X10*3/uL (0.1-1.2); Monocytes Percent Auto 10.4 % (2-11); Neutrophils Absolute Auto 5.8 x10*3/uL (2.0-8.3); Neutrophils Percent Auto 74.9 % (45-73); Platelet Count 247 X10*3/uL (160-400); Red Blood Count 2.33 X10*6/uL (4.60-5.80); Red Cell Distribution Width 17.6 % (11.0-16.0); White Blood Count 7.8 X10*3/uL (4.8-10.8)
[2023-04-22] MEDS: cefEPime HCl 2 GM in 0.9 % Sodium Chloride 50 ML IV (09:56)
--- NOTE | 2023-04-22 10:11 | MHC.CM.PN ---
Per ROUNDS discussion, Patient is not yet medically cleared for dc (several IV meds, developed a fever overnight); Patient may benefit from a PT eval to assist with disposition. CM will follow.
[2023-04-22] MEDS: 0.9 % Sodium Chloride Flush 3 ML SYRINGE IVFLUSH ×3 (10:59→23:56)
[2023-04-22] MEDS: Bumetanide 25 MG in Container,Empty 0 ML 4 MG IVCONT (10:59)
[2023-04-22] MEDS: Bumetanide 1 MG/4 ML VIAL 4 MG IVPUSH (11:01)
--- NOTE | 2023-04-22 11:02 | P.CONCC_ITS ---
History of Present Illness Data of Consult Service Date: 04/22/23 Requesting physician: Fadia Rubi Primary Care Provider: MD RICARDO Ambrocio Reason for consult: Level of care 57-year-old gentleman with underlying history of hypertension, diabetes mellitus with neuropathy and nephropathy, cocaine abuse hospitalized on 04/18/2023 with worsening edema and dyspnea secondary to nephrotic syndrome. Patient has been treated on telemetry weaver with diuretic drip, however still with essentially net 0 fluid balance, now with worsening dyspnea and hypoxia, though able to maintain his O2 saturation on facial mask. Patient also been followed by nephrology service. Review of Systems Constitutional: Constitutional: Reports fatigue Cardiovascular: Cardiovascular: Denies chest pain, Reports leg edema, Reports dyspnea and Reports dyspnea on exertion Respiratory: Respiratory: Denies cough, Reports dyspnea and Reports dyspnea on exertion Endocrine: Endocrine: Reports fatigue PMFSH Past Medical History Medical History (Updated 04/19/23 @ 15:06 by Quang Cantu MD) Anemia Chronic pain syndrome Depression Diabetic nephropathy Diabetic polyneuropathy HLD (hyperlipidemia) HTN (hypertension) T2DM (type 2 diabetes mellitus) Vitamin D deficiency Family History Family History Father Colon cancer Mother History of kidney problems T2DM (type 2 diabetes mellitus) Sister T2DM (type 2 diabetes mellitus) Surgical History Surgical History (Updated 04/18/23 @ 15:29 by FLY Flaherty) Hx of colonoscopy Hx of rotator cuff surgery Status post biopsy of kidney Social History Social History (Updated 04/18/23 @ 15:29 by FLY Flaherty) Household Members: Unknown / Unable to assess Alcohol intake: never Patient Tobacco Use Status: Never used Tobacco Use of substances other than those prescribed or required for medical reasons: Refusing to respond Substance Use Type: Crack/Cocaine Currently Displaying Signs/Symptoms of Drug Intoxication Withdrawal: No Have you been hit, kicked, punched, or otherwise hurt by someone within the past year? If so, by whom?: No Do you feel safe in your current relationship?: No Current Relationship Is there a partner from a previous relationship who is making you feel unsafe now?: No Are you made to feel afraid or neglected: No Advance Directives: Yes Advance Directives Information Provided: Yes Advance Directives on File: No Advance Directives Date on File: 04/18/23 Do you have thoughts of harming others: None Do you have a plan to hurt others: No Plan Recently lost weight without trying: No Eating poorly because of decreased appetite: No Nutrition Risks: No Nutritional Risk service: No Current occupational status: disabled Current occupation: right handed Meds Allergies Allergy/AdvReac Type Severity Reaction Status Date / Time No Known Allergies Allergy Verified 04/18/23 09:11 [No Known Allergies*] Active Medications: Current Medications Acetaminophen (Acetaminophen 325 Mg Tablet) 650 mg PO Q6H PRN PRN Reason: Pain, Mild (Pain Scale 1-3) Last Admin: 04/20/23 19:44 Dose: 650 mg Diphenhydramine HCl (Diphenhydramine Hcl 25 Mg Capsule) 25 mg PO BEDTIME [facility] Last Admin: 04/21/23 22:32 Dose: 25 mg Docusate Sodium (Docusate Sodium 100 Mg Capsule) 100 mg PO DAILY PRN PRN Reason: Constipation Ferrous Sulfate (Ferrous Sulfate 324 Mg Tablet.Dr) 324 mg PO DAILY [facility] Last Admin: 04/21/23 09:17 Dose: 324 mg Gabapentin (Gabapentin 100 Mg Capsule) 200 mg PO TID [facility] Last Admin: 04/21/23 22:31 Dose: 200 mg Glucose (Glucose Gel 15 Gm Gel..Gram.) 15 gm PO Q15M PRN; Protocol PRN Reason: per Hypoglycemia Standing Ord. Glucose (Glucose Gel 15 Gm Gel..Gram.) 15 gm PO Q15M PRN; Protocol PRN Reason: per Hypoglycemia Standing Ord. Guaifenesin (Guaifenesin 200 Mg/10 Ml 10 Ml Liquid) 10 ml PO Q6H PRN PRN Reason: Cough Last Admin: 04/20/23 18:58 Dose: 10 ml Dextrose (D10) 250 mls @ 750 mls/hr IV Q15M PRN; Protocol PRN Reason: per Hypoglycemia Standing Ord. Last Infusion: 04/22/23 09:50 Dose: Infused Cefepime HCl 2 gm/ Sodium (Chloride) 50 mls @ 100 mls/hr IV Q12H [facility] Last Admin: 04/22/23 09:56 Dose: 100 mls/hr Dextrose (D10) 250 mls @ 750 mls/hr IV Q15M PRN; Protocol PRN Reason: per Hypoglycemia Standing Ord. Vancomycin HCl 750 mg/ Sodium (Chloride) 265 mls @ 265 mls/hr IV Q24H [facility] Bumetanide 25 mg/ IV (Miscellaneous Supplies) 100 mls @ 4 mls/hr IVCONT .Q24H [facility] Last Admin: 04/22/23 10:59 Dose: 1 mg/hr, 4 mls/hr Albumin Human (Kedbumin 25 %) 100 mls @ 100 mls/hr IV Q6H [facility] Stop: 04/23/23 04:29 Insulin Glargine (Insulin Glargine,Hum.Rec.Anlog 100 Unit/Ml 10 Ml Vial) 20 unit SUBCUT BEDTIME [facility] Last Admin: 04/21/23 22:38 Dose: 20 unit Insulin Human Lispro (Insulin Lispro 100 Unit/Ml 3 Ml Vial) 0 unit SUBCUT QIDACHS [facility]; Protocol Last Admin: 04/22/23 07:56 Dose: Not Given Ketorolac Tromethamine (Ketorolac Tromethamine 0.5% Op 5 Ml Drops) 1 drop EYE- BOTH TID [facility] Last Admin: 04/21/23 23:03 Dose: Not Given Melatonin (Melatonin 3 Mg Tablet) 6 mg PO BEDTIME PRN PRN Reason: Insomnia Last Admin: 04/20/23 00:44 Dose: 6 mg Ondansetron HCl (Ondansetron Hcl 4 Mg/2 Ml Vial) 4 mg IVPUSH Q8H PRN PRN Reason: Nausea and Vomiting Pantoprazole Sodium (Pantoprazole Sodium 40 Mg/10 Ml Vial) 40 mg IVPUSH DAILY@0630 [facility] Pharmacy Consult (Consult Rx Perform Med Rec) 1 each MISCELLANE ONCE PRN PRN Reason: Consult order Pharmacy Consult (Consult Rx Vancomycin Dosing) 1 each MISCELLANE DAILY PRN PRN Reason: Consult order Prednisolone Acetate (Prednisolone Acetate 1 % Oph Susp 5 Ml Drpbtl) 1 drop EYE-BOTH TID [facility] Last Admin: 04/21/23 23:04 Dose: Not Given Sodium Chloride (0.9 % Sodium Chloride Flush 3 Ml Syringe) 3 ml IVFLUSH QSHIFT [facility] Last Admin: 04/22/23 10:59 Dose: 3 ml Tamsulosin HCl (Tamsulosin Hcl 0.4 Mg Capsule) 0.4 mg PO DAILY [facility] Last Admin: 04/21/23 09:18 Dose: 0.4 mg Ziprasidone (Ziprasidone 60 Mg Capsule) 60 mg PO BID [facility] Last Admin: 04/21/23 22:32 Dose: 60 mg Home Medications Medication Instructions Recorded Confirmed Last Taken Type dulaglutide 1.5 mg/0.5 mL 1.5 mg subcut WE@0900 09/25/20 04/18/23 01/26/23 History subcutaneous pen injector (Trulicity) metformin 1,000 mg tablet 1,000 mg PO BID 09/25/20 04/18/23 01/30/23 History insulin glargine 100 unit/mL (3 32 unit subcut BEDTIME 12/22/20 04/18/23 01/30/23 History mL) subcutaneous pen (Lantus Solostar U-100 Insulin) insulin lispro 100 unit/mL 12 unit subcut TIDAC 12/22/20 04/18/23 04/18/23 History subcutaneous pen (Humalog KwikPen (U-100) Insulin) ketorolac 0.5 % eye drops 1 drp ophthalmic (eye) TID 01/31/23 04/18/23 Unknown History prednisolone acetate 1 % eye 1 drp ophthalmic (eye) TID 01/31/23 04/18/23 Unknown History drops,suspension diphenhydramine HCl 25 mg capsule 25 mg PO BEDTIME 04/18/23 04/18/23 Unknown History (Benadryl) ferrous sulfate 325 mg (65 mg 325 mg PO DAILY 04/18/23 04/18/23 Unknown History iron) tablet furosemide 20 mg tablet (Lasix) 40 mg PO DAILY 04/18/23 04/18/23 Unknown History gabapentin 800 mg tablet 800 mg PO TID 04/18/23 04/18/23 Unknown History ramelteon 8 mg tablet 8 mg PO BEDTIME PRN Insomnia 04/18/23 04/18/23 04/17/23 History tamsulosin 0.4 mg capsule 0.4 mg PO DAILY 04/18/23 04/18/23 Unknown History ziprasidone HCl 60 mg capsule 60 mg PO BID 04/18/23 04/18/23 Unknown History (Geodon) Physical Exam Vital Signs: Vital Signs: Last Vital Signs Temp 98.3 F 04/22/23 07:49 Pulse 87 04/22/23 07:49 Resp 18 04/22/23 07:49 BP 127/69 04/22/23 07:49 Pulse Ox 100 04/22/23 07:49 O2 Del Method Oxymask 04/22/23 07:49 O2 Flow Rate 15 04/22/23 07:49 BMI result Body Mass Index 27.1 Const: General: no acute distress, alert, awake and other (anasarca) Eyes: Sclerae: sclerae normal EOM: EOMs intact bilaterally Neck: Neck: Yes no lymphadenopathy, Yes trachea midline and Yes supple Resp: Effort & Inspection: no respiratory distress and tachypneic Auscultation: crackles ( diffuse bilateral) Cardio: Rate: regular rate Rhythm: regular rhythm Heart sounds: no gallops, no murmurs and no rubs GI: Palpation (GI): Soft to palpation and Other GI palpation findings present ( Nontender) Auscultation: normal bowel sounds Extrem: General: No clubbing, No cyanosis and Yes edema ( 2+ bilateral) Results Labs 04/22/23 06:22 04/22/23 06:22 Labs: Short CBC 04/22/23 Range/Units 06:22 WBC 7.8 (4.8-10.8) X10*3/uL Hgb 6.3 L* (14.0-18.0) g/dl Hct 20.2 L* (42.0-52.0) % Plt Count 247 (160-400) X10*3/uL BMP 04/22/23 06:22 Sodium 139 Potassium 5.1 Chloride 105 Carbon Dioxide 23 BUN 57 H Creatinine 2.72 H Calcium 8.3 L Urine 04/22/23 Range/Units 07:08 Urine Color Yellow Urine Appearance Clear Urine pH 5.5 (5.0-9.0) Ur Specific [place] 1.010 (1.005-1.025) Urine Protein 300 (3+) H (Neg-Trace) mg/dL Urine Glucose (UA) Negative (Negative) mg/dL Assessment and Plan (1) Anasarca: Status: Acute (2) Acute kidney failure: Status: Acute (3) Nephrotic syndrome: Status: Acute Plan Impression: 57-year-old gentleman with diabetic nephropathy and cocaine abuse admitted with un esophagus secondary to nephrotic syndrome now with acute renal failure and acute hypoxic respiratory failure still without significant diuresis. Recommendations: Continue with albumin supplementation for oncotic support. Switch Lasix drip to Bumex drip, if urine output not improving, consider adding diarrheal. At this time does not require intensive care level of service, if patient's condition changes, please notify for re-evaluation. Recommendations d iscussed with Dr. Rubi.
[2023-04-22 11:34] LABS: Glucose, Whole Blood 98 mg/dL (60-115)
[2023-04-22 11:48] LABS: Troponin-I High Sensitivity 25.4 ng/L (<3.5-35.0)
[2023-04-22 12:05] LABS: B Type Natriuretic Peptide 1658 pg/mL (<100)
--- NOTE | 2023-04-22 12:08 | PM.CNCAR ---
History of Present Illness History of Present Illness Date of Service: 04/22/23 Requesting physician: Fadia Rubi Consult reason: congestive heart failure and other Chief complaint: nephrotic syndome, anasarca Narrative: I was consulted to see Yao in cardiology consultation today due to worsening respiratory status is progressively increasing shortness of breath and findings suggestive heart failure. He is a 57-year-old male, he is not able to provide much history because is in respiratory distress and appears slightly altered mental status as per the son. History was obtained from his sister with help of for certified vermin exterminator over the phone as well as the son at bedside and the chart. Patient was admitted 5 days ago with progressively increasing swelling generalized all over the body with anasarca. He is known to have nephrotic syndrome related to diabetes and chronic kidney disease. Admitted with acute kidney injury. Over the last 3 days he has had progressively increasing shortness of breath. Initial chest x-ray is suggestive of pulmonary venous congestion. His BNP is noted to be in the 400 range. However the last 3 days he had a progressive shortness of breath and today appears to have slight altered mental status. Blood gas done do not see report in the chart. His BNP is further increase in chest x-rays findings consistent with more interstitial edema. Patient not able to provide further history right now. However as per the sister this symptoms started about 3-4 months ago when he started having generalized body swelling related to his nephrotic syndrome. This is his 2nd hospitalization. As per the sister has never any heart problems before. Denies any myocardial infarction or heart failure in the past. Echocardiogram done last admission showed normal LV systolic function with mild LVH with elevated filling pressures is left atrial enlargement. Patient does have history of diabetes, hypertension, hyperlipidemia as well as reported peripheral arterial disease. Patient also has progressive renal dysfunction. Review of Systems Constitutional: Constitutional: Reports fatigue and Reports weight gain Cardiovascular: Cardiovascular: Reports Abdominal Distension, Denies chest pain, Reports leg edema, Denies lightheadedness, Denies Loss of Consciousness, Denies palpitations and Reports dyspnea Respiratory: Respiratory: Reports dyspnea Neurologic: Reports system reviewed and no additional complaints, except as documented Psychiatric: Psychiatric: Reports no additional psychiatric complaints Endocrine: Endocrine: Reports fatigue and Denies palpitations [facility] Past Medical History Medical History Anemia Chronic pain syndrome Depression Diabetic nephropathy Diabetic polyneuropathy HLD (hyperlipidemia) HTN (hypertension) T2DM (type 2 diabetes mellitus) Vitamin D deficiency Family History Family History Father Colon cancer Mother History of kidney problems T2DM (type 2 diabetes mellitus) Sister T2DM (type 2 diabetes mellitus) Surgical History Surgical History Hx of colonoscopy Hx of rotator cuff surgery Status post biopsy of kidney Social History Social History Household Members: Unknown / Unable to assess Alcohol intake: never Patient Tobacco Use Status: Never used Tobacco Use of substances other than those prescribed or required for medical reasons: Refusing to respond Substance Use Type: Crack/Cocaine Currently Displaying Signs/Symptoms of Drug Intoxication Withdrawal: No Have you been hit, kicked, punched, or otherwise hurt by someone within the past year? If so, by whom?: No Do you feel safe in your current relationship?: No Current Relationship Is there a partner from a previous relationship who is making you feel unsafe now?: No Are you made to feel afraid or neglected: No Advance Directives: Yes Advance Directives Information Provided: Yes Advance Directives on File: No Advance Directives Date on File: 04/18/23 Do you have thoughts of harming others: None Do you have a plan to hurt others: No Plan Recently lost weight without trying: No Eating poorly because of decreased appetite: No Nutrition Risks: No Nutritional Risk service: No Current occupational status: disabled Current occupation: right handed Meds Allergies Allergy/AdvReac Type Severity Reaction Status Date / Time No Known Allergies Allergy Verified 04/18/23 09:11 [No Known Allergies*] Active Medications: Current Medications Acetaminophen (Acetaminophen 325 Mg Tablet) 650 mg PO Q6H PRN PRN Reason: Pain, Mild (Pain Scale 1-3) Last Admin: 04/20/23 19:44 Dose: 650 mg Diphenhydramine HCl (Diphenhydramine Hcl 25 Mg Capsule) 25 mg PO BEDTIME BRENNEN Last Admin: 04/21/23 22:32 Dose: 25 mg Docusate Sodium (Docusate Sodium 100 Mg Capsule) 100 mg PO DAILY PRN PRN Reason: Constipation Ferrous Sulfate (Ferrous Sulfate 324 Mg Tablet.Dr) 324 mg PO DAILY [facility] Last Admin: 04/22/23 11:31 Dose: Not Given Gabapentin (Gabapentin 100 Mg Capsule) 200 mg PO TID [facility] Last Admin: 04/22/23 11:31 Dose: Not Given Glucose (Glucose Gel 15 Gm Gel..Gram.) 15 gm PO Q15M PRN; Protocol PRN Reason: per Hypoglycemia Standing Ord. Glucose (Glucose Gel 15 Gm Gel..Gram.) 15 gm PO Q15M PRN; Protocol PRN Reason: per Hypoglycemia Standing Ord. Guaifenesin (Guaifenesin 200 Mg/10 Ml 10 Ml Liquid) 10 ml PO Q6H PRN PRN Reason: Cough Last Admin: 04/20/23 18:58 Dose: 10 ml Dextrose (D10) 250 mls @ 750 mls/hr IV Q15M PRN; Protocol PRN Reason: per Hypoglycemia Standing Ord. Last Infusion: 04/22/23 09:50 Dose: Infused Cefepime HCl 2 gm/ Sodium (Chloride) 50 mls @ 100 mls/hr IV Q12H [facility] Last Infusion: 04/22/23 10:25 Dose: Infused Dextrose (D10) 250 mls @ 750 mls/hr IV Q15M PRN; Protocol PRN Reason: per Hypoglycemia Standing Ord. Vancomycin HCl 750 mg/ Sodium (Chloride) 265 mls @ 265 mls/hr IV Q24H [facility] Bumetanide 25 mg/ IV (Miscellaneous Supplies) 100 mls @ 4 mls/hr IVCONT .Q24H [facility] Last Admin: 04/22/23 10:59 Dose: 1 mg/hr, 4 mls/hr Albumin Human (Kedbumin 25 %) 100 mls @ 100 mls/hr IV Q6H [facility] Stop: 04/23/23 04:29 Last Admin: 04/22/23 11:32 Dose: Not Given Insulin Glargine (Insulin Glargine,Hum.Rec.Anlog 100 Unit/Ml 10 Ml Vial) 20 unit SUBCUT BEDTIME [facility] Last Admin: 04/21/23 22:38 Dose: 20 unit Insulin Human Lispro (Insulin Lispro 100 Unit/Ml 3 Ml Vial) 0 unit SUBCUT QIDACHS [facility]; Protocol Last Admin: 04/22/23 11:40 Dose: Not Given Ketorolac Tromethamine (Ketorolac Tromethamine 0.5% Op 5 Ml Drops) 1 drop EYE-BOTH TID [facility] Last Admin: 04/22/23 11:31 Dose: Not Given Loperamide HCl (Loperamide Hcl 2 Mg Capsule) 2 mg PO Q4H PRN PRN Reason: diarrhae Melatonin (Melatonin 3 Mg Tablet) 6 mg PO BEDTIME PRN PRN Reason: Insomnia Last Admin: 04/20/23 00:44 Dose: 6 mg Ondansetron HCl (Ondansetron Hcl 4 Mg/2 Ml Vial) 4 mg IVPUSH Q8H PRN PRN Reason: Nausea and Vomiting Pantoprazole Sodium (Pantoprazole Sodium 40 Mg/10 Ml Vial) 40 mg IVPUSH DAILY@0630 [facility] Pharmacy Consult (Consult Rx Perform Med Rec) 1 each MISCELLANE ONCE PRN PRN Reason: Consult order Pharmacy Consult (Consult Rx Vancomycin Dosing) 1 each MISCELLANE DAILY PRN PRN Reason: Consult order Prednisolone Acetate (Prednisolone Acetate 1 % Oph Susp 5 Ml Drpbtl) 1 drop EYE-BOTH TID [facility] Last Admin: 04/22/23 11:31 Dose: Not Given Sodium Chloride (0.9 % Sodium Chloride Flush 3 Ml Syringe) 3 ml IVFLUSH QSHIFT [facility] Last Admin: 04/22/23 10:59 Dose: 3 ml Tamsulosin HCl (Tamsulosin Hcl 0.4 Mg Capsule) 0.4 mg PO DAILY [facility] Last Admin: 04/22/23 11:31 Dose: Not Given Ziprasidone (Ziprasidone 60 Mg Capsule) 60 mg PO BID [facility] Last Admin: 04/22/23 11:32 Dose: Not Given Home Medications Medication Instructions Recorded Confirmed Last Taken Type dulaglutide 1.5 mg/0.5 mL 1.5 mg subcut WE@0900 09/25/20 04/18/23 01/26/23 History subcutaneous pen injector (Trulicity) metformin 1,000 mg tablet 1,000 mg PO BID 09/25/20 04/18/23 01/30/23 History insulin glargine 100 unit/mL (3 32 unit subcut BEDTIME 12/22/20 04/18/23 01/30/23 History mL) subcutaneous pen (Lantus Solostar U-100 Insulin) insulin lispro 100 unit/mL 12 unit subcut TIDAC 12/22/20 04/18/23 04/18/23 History subcutaneous pen (Humalog KwikPen (U-100) Insulin) ketorolac 0.5 % eye drops 1 drp ophthalmic (eye) TID 01/31/23 04/18/23 Unknown History prednisolone acetate 1 % eye 1 drp ophthalmic (eye) TID 01/31/23 04/18/23 Unknown History drops,suspension diphenhydramine HCl 25 mg capsule 25 mg PO BEDTIME 04/18/23 04/18/23 Unknown History (Benadryl) ferrous sulfate 325 mg (65 mg 325 mg PO DAILY 04/18/23 04/18/23 Unknown History iron) tablet furosemide 20 mg tablet (Lasix) 40 mg PO DAILY 04/18/23 04/18/23 Unknown History gabapentin 800 mg tablet 800 mg PO TID 04/18/23 04/18/23 Unknown History ramelteon 8 mg tablet 8 mg PO BEDTIME PRN Insomnia 04/18/23 04/18/23 04/17/23 History tamsulosin 0.4 mg capsule 0.4 mg PO DAILY 04/18/23 04/18/23 Unknown History ziprasidone HCl 60 mg capsule 60 mg PO BID 04/18/23 04/18/23 Unknown History (Geodon) Physical Exam Vital Signs: Vital Signs: Last Vital Signs Temp 100.0 F 04/22/23 11:28 Pulse 90 04/22/23 11:28 Resp 18 04/22/23 11:28 BP 133/66 04/22/23 11:28 Pulse Ox 100 04/22/23 11:28 O2 Del Method Oxymask 04/22/23 11:28 O2 Flow Rate 13 04/22/23 11:28 BMI result Body Mass Index 27.1 Const: General: in distress severe and respiratory and other (Somnolent) Nutritional Appearance: average body habitus HEENT: Head: Yes normocephalic and Yes atraumatic Neck: Neck: Yes trachea midline, Yes supple and Yes JVD Resp: Effort & Inspection: normal respiratory effort Auscultation: crackles diffuse Cardio: Jugular venous distension: JVD Rate: regular rate Rhythm: regular rhythm Heart sounds: S1 normal heart sound present, S2 normal heart sound present, no click, no gallops, no murmurs and no rubs GI: Inspection: Yes Abdominal wall edema and Yes distended Auscultation: normal bowel sounds Skin: General skin exam: no rashes or lesions noted Neuro: General: moves all extremities Extrem: General: No clubbing, No cyanosis and Yes edema Objective Labs and Meds 04/22/23 06:22 04/22/23 06:22 Lab results: Laboratory Results - last 24 hr 04/19/23 04/21/23 04/21/23 09:22 09:45 16:06 WBC RBC Hgb Hct MCV MCH MCHC RDW Plt Count MPV Immature Gran % (Auto) Neut % (Auto) Lymph % (Auto) Rush % (Auto) Eos % (Auto) Baso % (Auto) Lymph # (Auto) Rush # (Auto) Eos # (Auto) Baso # (Auto) Abs Immat Gran (auto) Absolute Neuts (auto) Absolute Nucleated RBC Nucleated RBC % (auto) Sodium Potassium Chloride Carbon Dioxide Anion Gap BUN Creatinine Estim Creat Clear Calc Estimated GFR POC Glucose 205 H Random Glucose Lactic Acid Calcium Magnesium Troponin I High Sens B-Natriuretic Peptide Urine Color Urine Appearance Urine pH Ur Specific [place] Urine Protein Urine Glucose (UA) Urine Ketones Urine Blood Urine Nitrite Ur Leukocyte Esterase Urine RBC Urine WBC Ur Squamous Epith Cells Urine Bacteria Hyaline Casts Respiratory Panel [place] See Note Adenovirus (Rapid PCR) Not Detected B.pert (TEM-PCR) Not Detected B.parapertussis DNA PCR Not Detected C. pneumoniae DNA (PCR) Not Detected Coronavirus OC43 (PCR) Not Detected Coronavirus HKU1 (PCR) Not Detected Coronavirus 229E (PCR) Not Detected Coronavirus NL63 (PCR) Not Detected Human Metapneumovir PCR Not Detected Influenza A (RT-PCR) Not Detected Influenza B (RT-PCR) Not Detected M. pneumoniae (PCR) Not Detected Parainfluenza 1 (PCR) Not Detected Parainfluenza 2 (PCR) Not Detected Parainfluenza 3 (PCR) Detected A Parainfluenza 4 (PCR) Not Detected RSV (PCR) Not Detected Entero/Rhino (PCR) Detected A SARS-CoV-2 RNA (RT-PCR) Not Detected Blood Type A Positive Antibody Screen NEGATIVE Crossmatch See Detail 04/21/23 04/21/23 04/21/23 19:34 19:34 22:32 WBC RBC Hgb Hct MCV MCH MCHC RDW Plt Count MPV Immature Gran % (Auto) Neut % (Auto) Lymph % (Auto) Rush % (Auto) Eos % (Auto) Baso % (Auto) Lymph # (Auto) Rush # (Auto) Eos # (Auto) Baso # (Auto) Abs Immat Gran (auto) Absolute Neuts (auto) Absolute Nucleated RBC Nucleated RBC % (auto) Sodium Potassium Chloride Carbon Dioxide Anion Gap BUN Creatinine Estim Creat Clear Calc Estimated GFR POC Glucose 144 H Random Glucose Lactic Acid Calcium Magnesium Troponin I High Sens 13.7 B-Natriuretic Peptide 1262 H Urine Color Urine Appearance Urine pH Ur Specific [place] Urine Protein Urine Glucose (UA) Urine Ketones Urine Blood Urine Nitrite Ur Leukocyte Esterase Urine RBC Urine WBC Ur Squamous Epith Cells Urine Bacteria Hyaline Casts Respiratory Panel [place] Adenovirus (Rapid PCR) B.pert (TEM-PCR) B.parapertussis DNA PCR C. pneumoniae DNA (PCR) Coronavirus OC43 (PCR) Coronavirus HKU1 (PCR) Coronavirus 229E (PCR) Coronavirus NL63 (PCR) Human Metapneumovir PCR Influenza A (RT-PCR) Influenza B (RT-PCR) M. pneumoniae (PCR) Parainfluenza 1 (PCR) Parainfluenza 2 (PCR) Parainfluenza 3 (PCR) Parainfluenza 4 (PCR) RSV (PCR) Entero/Rhino (PCR) SARS-CoV-2 RNA (RT-PCR) Blood Type Antibody Screen Crossmatch 04/22/23 04/22/23 04/22/23 06:22 06:22 06:22 WBC 7.8 RBC 2.33 L Hgb 6.3 L* Hct 20.2 L* MCV 88.4 MCH 27.0 MCHC 30.6 L RDW 17.6 H Plt Count 247 MPV 11.0 Immature Gran % (Auto) 0.6 H Neut % (Auto) 74.9 H Lymph % (Auto) 12.8 L Rush % (Auto) 10.4 Eos % (Auto) 1.0 Baso % (Auto) 0.3 Lymph # (Auto) 1.0 L Rush # (Auto) 0.8 Eos # (Auto) 0.1 Baso # (Auto) 0.0 Abs Immat Gran (auto) 0.05 H Absolute Neuts (auto) 5.8 Absolute Nucleated RBC 0.000 Nucleated RBC % (auto) 0.0 Sodium 139 Potassium 5.1 Chloride 105 Carbon Dioxide 23 Anion Gap 16 BUN 57 H Creatinine 2.72 H Estim Creat Clear Calc 26.8 Estimated GFR 24 POC Glucose Random Glucose 66 Lactic Acid 0.5 Calcium 8.3 L Magnesium 2.2 Troponin I High Sens B-Natriuretic Peptide Urine Color Urine Appearance Urine pH Ur Specific [place] Urine Protein Urine Glucose (UA) Urine Ketones Urine Blood Urine Nitrite Ur Leukocyte Esterase Urine RBC Urine WBC Ur Squamous Epith Cells Urine Bacteria Hyaline Casts Respiratory Panel [place] Adenovirus (Rapid PCR) B.pert (TEM-PCR) B.parapertussis DNA PCR C. pneumoniae DNA (PCR) Coronavirus OC43 (PCR) Coronavirus HKU1 (PCR) Coronavirus 229E (PCR) Coronavirus NL63 (PCR) Human Metapneumovir PCR Influenza A (RT-PCR) Influenza B (RT-PCR) M. pneumoniae (PCR) Parainfluenza 1 (PCR) Parainfluenza 2 (PCR) Parainfluenza 3 (PCR) Parainfluenza 4 (PCR) RSV (PCR) Entero/Rhino (PCR) SARS-CoV-2 RNA (RT-PCR) Blood Type Antibody Screen Crossmatch 04/22/23 04/22/23 04/22/23 07:08 07:33 08:19 WBC RBC Hgb Hct MCV MCH MCHC RDW Plt Count MPV Immature Gran % (Auto) Neut % (Auto) Lymph % (Auto) Rush % (Auto) Eos % (Auto) Baso % (Auto) Lymph # (Auto) Rush # (Auto) Eos # (Auto) Baso # (Auto) Abs Immat Gran (auto) Absolute Neuts (auto) Absolute Nucleated RBC Nucleated RBC % (auto) Sodium Potassium Chloride Carbon Dioxide Anion Gap BUN Creatinine Estim Creat Clear Calc Estimated GFR POC Glucose 69 162 H Random Glucose Lactic Acid Calcium Magnesium Troponin I High Sens B-Natriuretic Peptide Urine Color Yellow Urine Appearance Clear Urine pH 5.5 Ur Specific [place] 1.010 Urine Protein 300 (3+) H Urine Glucose (UA) Negative Urine Ketones Negative Urine Blood Moderate (2+) H Urine Nitrite Negative Ur Leukocyte Esterase Negative Urine RBC 3-5 H Urine WBC 0-5 Ur Squamous Epith Cells 0-2 Urine Bacteria 2+ Hyaline Casts 6-10 Respiratory Panel [place] Adenovirus (Rapid PCR) B.pert (TEM-PCR) B.parapertussis DNA PCR C. pneumoniae DNA (PCR) Coronavirus OC43 (PCR) Coronavirus HKU1 (PCR) Coronavirus 229E (PCR) Coronavirus NL63 (PCR) Human Metapneumovir PCR Influenza A (RT-PCR) Influenza B (RT-PCR) M. pneumoniae (PCR) Parainfluenza 1 (PCR) Parainfluenza 2 (PCR) Parainfluenza 3 (PCR) Parainfluenza 4 (PCR) RSV (PCR) Entero/Rhino (PCR) SARS-CoV-2 RNA (RT-PCR) Blood Type Antibody Screen Crossmatch 04/22/23 04/22/23 04/22/23 09:11 11:10 11:10 WBC RBC Hgb Hct MCV MCH MCHC RDW Plt Count MPV Immature Gran % (Auto) Neut % (Auto) Lymph % (Auto) Rush % (Auto) Eos % (Auto) Baso % (Auto) Lymph # (Auto) Rush # (Auto) Eos # (Auto) Baso # (Auto) Abs Immat Gran (auto) Absolute Neuts (auto) Absolute Nucleated RBC Nucleated RBC % (auto) Sodium Potassium Chloride Carbon Dioxide Anion Gap BUN Creatinine Estim Creat Clear Calc Estimated GFR POC Glucose 110 Random Glucose Lactic Acid Calcium Magnesium Troponin I High Sens 25.4 D B-Natriuretic Peptide 1658 H Urine Color Urine Appearance Urine pH Ur Specific [place] Urine Protein Urine Glucose (UA) Urine Ketones Urine Blood Urine Nitrite Ur Leukocyte Esterase Urine RBC Urine WBC Ur Squamous Epith Cells Urine Bacteria Hyaline Casts Respiratory Panel [place] Adenovirus (Rapid PCR) B.pert (TEM-PCR) B.parapertussis DNA PCR C. pneumoniae DNA (PCR) Coronavirus OC43 (PCR) Coronavirus HKU1 (PCR) Coronavirus 229E (PCR) Coronavirus NL63 (PCR) Human Metapneumovir PCR Influenza A (RT-PCR) Influenza B (RT-PCR) M. pneumoniae (PCR) Parainfluenza 1 (PCR) Parainfluenza 2 (PCR) Parainfluenza 3 (PCR) Parainfluenza 4 (PCR) RSV (PCR) Entero/Rhino (PCR) SARS-CoV-2 RNA (RT-PCR) Blood Type Antibody Screen Crossmatch 04/22/23 11:31 WBC RBC Hgb Hct MCV MCH MCHC RDW Plt Count MPV Immature Gran % (Auto) Neut % (Auto) Lymph % (Auto) Rush % (Auto) Eos % (Auto) Baso % (Auto) Lymph # (Auto) Rush # (Auto) Eos # (Auto) Baso # (Auto) Abs Immat Gran (auto) Absolute Neuts (auto) Absolute Nucleated RBC Nucleated RBC % (auto) Sodium Potassium Chloride Carbon Dioxide Anion Gap BUN Creatinine Estim Creat Clear Calc Estimated GFR POC Glucose 98 Random Glucose Lactic Acid Calcium Magnesium Troponin I High Sens B-Natriuretic Peptide Urine Color Urine Appearance Urine pH Ur Specific [place] Urine Protein Urine Glucose (UA) Urine Ketones Urine Blood Urine Nitrite Ur Leukocyte Esterase Urine RBC Urine WBC Ur Squamous Epith Cells Urine Bacteria Hyaline Casts Respiratory Panel [place] Adenovirus (Rapid PCR) B.pert (TEM-PCR) B.parapertussis DNA PCR C. pneumoniae DNA (PCR) Coronavirus OC43 (PCR) Coronavirus HKU1 (PCR) Coronavirus 229E (PCR) Coronavirus NL63 (PCR) Human Metapneumovir PCR Influenza A (RT-PCR) Influenza B (RT-PCR) M. pneumoniae (PCR) Parainfluenza 1 (PCR) Parainfluenza 2 (PCR) Parainfluenza 3 (PCR) Parainfluenza 4 (PCR) RSV (PCR) Entero/Rhino (PCR) SARS-CoV-2 RNA (RT-PCR) Blood Type Antibody Screen Crossmatch Imaging Radiologist's impression: Impressions Chest X-Ray 04/21/23 19:35 IMPRESSION: Central pulmonary vascular prominence and increased lung markings suggesting interstitial edema. Trace right pleural effusion. No change since prior chest x-ray this a.m. Assessment and Plan (1) Decompensated heart failure: Status: Acute Decompensated congestive heart failure in this middle-aged man with prior history of diastolic dysfunction by echocardiogram with progressive fluid overload with nephrotic syndrome, clinically appears to be in significant distress and appears to be markedly fluid overloaded. He has been diuresed and today his diuretic was strange from Lasix to Bumex due to tepid response. Also noted to be significantly anemic. Did discuss the case with Dr. Yee, who has seen the patient and is going to follow him closely as to his respiratory status to see if he will require transfer to critical care unit. For now I would continue with IV diuresis with Bumex. Strict intake and output chart needs to be pursued. Would also add additional diuretic therapy if he can take oral with metolazone or IV Diuril. Overall prognosis is guarded. I have recommended the hospitalist team to transfuse him to maintain hematocrit over 30. Continue respiratory support. Blood gas results are still pending. If there is significant CO2 retention may also need respiratory support if he is tiring. Continue monitor renal function. Limited stat echo to evaluate for pericardial effusion as well as right-sided filling pressures. Greater than 45 minutes was spent in coordinating care with various teams Will continue to follow with you. Time Spent With Patient Time: Total time managing care of this patient today ____ minutes. Procedures Date of Service Date of Service: 04/22/23
[2023-04-22] MEDS: Acetaminophen 325 MG TABLET 650 MG PO ×2 (13:08→17:09)
--- NOTE | 2023-04-22 15:18 | P.PNIM_ITS ---
Subjective Subjective Date of Service: 04/23/23 Interval History: Acute hypoxemic respiratory failure multifactorial, FUO, anemia Review of Systems Patient shortness of breath progressively worsening Had fever in in middle of transfusion Also getting somewhat agitated Physical Exam Vital Signs: Vital Signs: Last Vital Signs Temp 98.8 F 04/22/23 15:09 Pulse 85 04/22/23 15:09 Resp 16 04/22/23 15:09 BP 162/75 H 04/22/23 15:09 Pulse Ox 91 L 04/22/23 15:09 O2 Del Method Oxymask 04/22/23 15:09 O2 Flow Rate 13 04/22/23 12:32 BMI result Body Mass Index 27.1 Appearance: Alert.? Oriented X3.?still sob cvs: rrr, [id number]. res: air entry seems fair,slightly diminshed at bases ,no rales abd: no rebound or guarding ,nt, bs present. ext pulses present , no cyanosis neuro: axo3 , nonfocal. Objective Data Active Medications Acetaminophen (Acetaminophen 325 Mg Tablet) 650 mg PO Q6H PRN PRN Reason: Pain, Mild (Pain Scale 1-3) Last Admin: 04/20/23 19:44 Dose: 650 mg Documented By: TALON Diphenhydramine HCl (Diphenhydramine Hcl 25 Mg Capsule) 25 mg PO BEDTIME [facility] Last Admin: 04/21/23 22:32 Dose: 25 mg Documented By: CHRISTY Docusate Sodium (Docusate Sodium 100 Mg Capsule) 100 mg PO DAILY PRN PRN Reason: Constipation Ferrous Sulfate (Ferrous Sulfate 324 Mg Tablet.) 324 mg PO DAILY [facility] Last Admin: 04/22/23 11:31 Dose: Not Given Documented By: JAVIER Non-Admin Reason: Physician Held Med Gabapentin (Gabapentin 100 Mg Capsule) 200 mg PO TID [facility] Last Admin: 04/22/23 11:31 Dose: Not Given Documented By: JAVIER Non-Admin Reason: Physician Held Med Glucose (Glucose Gel 15 Gm Gel..Gram.) 15 gm PO Q15M PRN; Protocol PRN Reason: per Hypoglycemia Standing Ord. Glucose (Glucose Gel 15 Gm Gel..Gram.) 15 gm PO Q15M PRN; Protocol PRN Reason: per Hypoglycemia Standing Ord. Guaifenesin (Guaifenesin 200 Mg/10 Ml 10 Ml Liquid) 10 ml PO Q6H PRN PRN Reason: Cough Last Admin: 04/20/23 18:58 Dose: 10 ml Documented By: CAT Dextrose ([id number]) 250 mls @ 750 mls/hr IV Q15M PRN; Protocol PRN Reason: per Hypoglycemia Standing Ord. Last Infusion: 04/22/23 09:50 Dose: 0 mls/hr Documented By: JAVIER Cefepime HCl 2 gm/ Sodium (Chloride) 50 mls @ 100 mls/hr IV Q12H [facility] Last Infusion: 04/22/23 10:25 Dose: 0 mls/hr Documented By: JAVIER Dextrose ([email or web address]) 250 mls @ 750 mls/hr IV Q15M PRN; Protocol PRN Reason: per Hypoglycemia Standing Ord. Vancomycin HCl 750 mg/ Sodium (Chloride) 265 mls @ 265 mls/hr IV Q24H [facility] Bumetanide 25 mg/ IV (Miscellaneous Supplies) 100 mls @ 4 mls/hr IVCONT .Q24H [facility] Last Admin: 04/22/23 10:59 Dose: 1 mg/hr, 4 mls/hr Documented By: JAVIER Albumin Human (Kedbumin 25 %) 100 mls @ 100 mls/hr IV Q6H [facility] Stop: 04/23/23 04:29 Last Admin: 04/22/23 11:32 Dose: Not Given Documented By: JAVIER Non-Admin Reason: Duplicate Order Insulin Glargine (Insulin Glargine,Hum.Rec.Anlog 100 Unit/Ml 10 Ml Vial) 20 unit SUBCUT BEDTIME [facility] Last Admin: 04/21/23 22:38 Dose: 20 unit Documented By: CHRISTY Insulin Human Lispro (Insulin Lispro 100 Unit/Ml 3 Ml Vial) 0 unit SUBCUT QIDACHS [facility]; Protocol Last Admin: 04/22/23 11:40 Dose: Not Given Documented By: JAVIER Non-Admin Reason: No Insulin Coverage Ketorolac Tromethamine (Ketorolac Tromethamine 0.5% Op 5 Ml Drops) 1 drop EYE- BOTH TID [facility] Last Admin: 04/22/23 11:31 Dose: Not Given Documented By: JAVIER Non-Admin Reason: Patient Asleep Loperamide HCl (Loperamide Hcl 2 Mg Capsule) 2 mg PO Q4H PRN PRN Reason: diarrhae Melatonin (Melatonin 3 Mg Tablet) 6 mg PO BEDTIME PRN PRN Reason: Insomnia Last Admin: 04/20/23 00:44 Dose: 6 mg Documented By: RAAD Ondansetron HCl (Ondansetron Hcl 4 Mg/2 Ml Vial) 4 mg IVPUSH Q8H PRN PRN Reason: Nausea and Vomiting Pantoprazole Sodium (Pantoprazole Sodium 40 Mg/10 Ml Vial) 40 mg IVPUSH DAILY@0630 [facility] Pharmacy Consult (Consult Rx Perform Med Rec) 1 each MISCELLANE ONCE PRN PRN Reason: Consult order Pharmacy Consult (Consult Rx Vancomycin Dosing) 1 each MISCELLANE DAILY PRN PRN Reason: Consult order Prednisolone Acetate (Prednisolone Acetate 1 % Oph Susp 5 Ml Drpbtl) 1 drop EYE-BOTH TID [facility] Last Admin: 04/22/23 11:31 Dose: Not Given Documented By: JAVIER Non-Admin Reason: Patient Asleep Sodium Chloride (0.9 % Sodium Chloride Flush 3 Ml Syringe) 3 ml IVFLUSH QSHIFT [facility] Last Admin: 04/22/23 10:59 Dose: 3 ml Documented By: JAVIER Tamsulosin HCl (Tamsulosin Hcl 0.4 Mg Capsule) 0.4 mg PO DAILY [facility] Last Admin: 04/22/23 11:31 Dose: Not Given Documented By: JAVIER Non-Admin Reason: Physician Held Med Ziprasidone (Ziprasidone 60 Mg Capsule) 60 mg PO BID [facility] Last Admin: 04/22/23 11:32 Dose: Not Given Documented By: JAVIER Non-Admin Reason: Physician Held Med Labs 04/22/23 06:22 04/22/23 06:22 Labs: Laboratory Results - last 24 hr 04/19/23 04/21/23 04/21/23 09:22 16:06 19:34 MCV MCH MCHC RDW Plt Count MPV Immature Gran % (Auto) Neut % (Auto) Lymph % (Auto) [place] % (Auto) Eos % (Auto) Baso % (Auto) Lymph # (Auto) [place] # (Auto) Eos # (Auto) Baso # (Auto) Abs Immat Gran (auto) Absolute Neuts (auto) Absolute Nucleated RBC Nucleated RBC % (auto) Anion Gap Estim Creat Clear Calc Estimated GFR POC Glucose 205 H Random Glucose Lactic Acid Calcium Magnesium Troponin I High Sens 13.7 B-Natriuretic Peptide Urine Color Urine Appearance Urine pH Ur Specific [place] Urine Protein Urine Glucose (UA) Urine Ketones Urine Blood Urine Nitrite Ur Leukocyte Esterase Urine RBC Urine WBC Ur Squamous Epith Cells Urine Bacteria Hyaline Casts Blood Type A Positive Antibody Screen NEGATIVE Crossmatch See Detail 04/21/23 04/21/23 04/22/23 19:34 22:32 06:22 MCV 88.4 MCH 27.0 MCHC 30.6 L RDW 17.6 H Plt Count 247 MPV 11.0 Immature Gran % (Auto) 0.6 H Neut % (Auto) 74.9 H Lymph % (Auto) 12.8 L [place] % (Auto) 10.4 Eos % (Auto) 1.0 Baso % (Auto) 0.3 Lymph # (Auto) 1.0 L [place] # (Auto) 0.8 Eos # (Auto) 0.1 Baso # (Auto) 0.0 Abs Immat Gran (auto) 0.05 H Absolute Neuts (auto) 5.8 Absolute Nucleated RBC 0.000 Nucleated RBC % (auto) 0.0 Anion Gap Estim Creat Clear Calc Estimated GFR POC Glucose 144 H Random Glucose Lactic Acid Calcium Magnesium Troponin I High Sens B-Natriuretic Peptide 1262 H Urine Color Urine Appearance Urine pH Ur Specific [place] Urine Protein Urine Glucose (UA) Urine Ketones Urine Blood Urine Nitrite Ur Leukocyte Esterase Urine RBC Urine WBC Ur Squamous Epith Cells Urine Bacteria Hyaline Casts Blood Type Antibody Screen Crossmatch 04/22/23 04/22/23 04/22/23 06:22 06:22 07:08 MCV MCH MCHC RDW Plt Count MPV Immature Gran % (Auto) Neut % (Auto) Lymph % (Auto) [place] % (Auto) Eos % (Auto) Baso % (Auto) Lymph # (Auto) [place] # (Auto) Eos # (Auto) Baso # (Auto) Abs Immat Gran (auto) Absolute Neuts (auto) Absolute Nucleated RBC Nucleated RBC % (auto) Anion Gap 16 Estim Creat Clear Calc 26.8 Estimated GFR 24 POC Glucose Random Glucose 66 Lactic Acid 0.5 Calcium 8.3 L Magnesium 2.2 Troponin I High Sens B-Natriuretic Peptide Urine Color Yellow Urine Appearance Clear Urine pH 5.5 Ur Specific [place] 1.010 Urine Protein 300 (3+) H Urine Glucose (UA) Negative Urine Ketones Negative Urine Blood Moderate (2+) H Urine Nitrite Negative Ur Leukocyte Esterase Negative Urine RBC 3-5 H Urine WBC 0-5 Ur Squamous Epith Cells 0-2 Urine Bacteria 2+ Hyaline Casts 6-10 Blood Type Antibody Screen Crossmatch 04/22/23 04/22/23 04/22/23 07:33 08:19 09:11 MCV MCH MCHC RDW Plt Count MPV Immature Gran % (Auto) Neut % (Auto) Lymph % (Auto) [place] % (Auto) Eos % (Auto) Baso % (Auto) Lymph # (Auto) [place] # (Auto) Eos # (Auto) Baso # (Auto) Abs Immat Gran (auto) Absolute Neuts (auto) Absolute Nucleated RBC Nucleated RBC % (auto) Anion Gap Estim Creat Clear Calc Estimated GFR POC Glucose 69 162 H 110 Random Glucose Lactic Acid Calcium Magnesium Troponin I High Sens B-Natriuretic Peptide Urine Color Urine Appearance Urine pH Ur Specific [place] Urine Protein Urine Glucose (UA) Urine Ketones Urine Blood Urine Nitrite Ur Leukocyte Esterase Urine RBC Urine WBC Ur Squamous Epith Cells Urine Bacteria Hyaline Casts Blood Type Antibody Screen Crossmatch 04/22/23 04/22/23 04/22/23 11:10 11:10 11:31 MCV MCH MCHC RDW Plt Count MPV Immature Gran % (Auto) Neut % (Auto) Lymph % (Auto) [place] % (Auto) Eos % (Auto) Baso % (Auto) Lymph # (Auto) [place] # (Auto) Eos # (Auto) Baso # (Auto) Abs Immat Gran (auto) Absolute Neuts (auto) Absolute Nucleated RBC Nucleated RBC % (auto) Anion Gap Estim Creat Clear Calc Estimated GFR POC Glucose 98 Random Glucose Lactic Acid Calcium Magnesium Troponin I High Sens 25.4 D B-Natriuretic Peptide 1658 H Urine Color Urine Appearance Urine pH Ur Specific [place] Urine Protein Urine Glucose (UA) Urine Ketones Urine Blood Urine Nitrite Ur Leukocyte Esterase Urine RBC Urine WBC Ur Squamous Epith Cells Urine Bacteria Hyaline Casts Blood Type Antibody Screen Crossmatch 04/22/23 13:09 MCV MCH MCHC RDW Plt Count MPV Immature Gran % (Auto) Neut % (Auto) Lymph % (Auto) [place] % (Auto) Eos % (Auto) Baso % (Auto) Lymph # (Auto) [place] # (Auto) Eos # (Auto) Baso # (Auto) Abs Immat Gran (auto) Absolute Neuts (auto) Absolute Nucleated RBC Nucleated RBC % (auto) Anion Gap Estim Creat Clear Calc Estimated GFR POC Glucose Random Glucose Lactic Acid Calcium Magnesium Troponin I High Sens B-Natriuretic Peptide Urine Color Urine Appearance Urine pH Ur Specific [place] Urine Protein Urine Glucose (UA) Urine Ketones Urine Blood Urine Nitrite Ur Leukocyte Esterase Urine RBC Urine WBC Ur Squamous Epith Cells Urine Bacteria Hyaline Casts Blood Type A Positive Antibody Screen NEGATIVE Crossmatch See Detail Assessment and Plan (1) Pneumonia: Status: Acute (2) Decompensated heart failure: Status: Acute (3) Acute kidney failure: Status: Acute (4) Anasarca: Status: Acute (5) Nephrotic syndrome: Status: Acute Plan 57 year old male with chronic normocytic anemia, htn, hld, diabetic polyneuropathy, diabetic nephropathy, chronic pain syndrome, insulin dependent type 2 diabetes, and depression admitted for anasarca associated with nephrotic syndome. acute hypoxemic respiratory failure multifactorial Anasarca related to nephrotic syndrome (possible due to diabetic nephropathy), ?chf Bx 02/10 showing diabetic nephropathy and TMA. ?CARA negative,also cocaine positive,UA with 3+ proteinuria. Chest x-ray reviewed from last night-seems similar congestion, EKG seems okay this morning Strict I&O, greco catheter for fluid management,Low sodium diet diursed aroun 2.7 liter last 24 hrs changed IV bumex drip ,continue albumin,Added ABG Discussed with Nephro and Cardiology: Patient may benefit from icu level of care. Acute kidney injury-related to above cr wosening slwoly 2.57 Continue diuresis,Follow BMP Fuo: Patient had fever last night also, last fever are happened in the middle of 1st PRBC Stop transfusion, trans fusion reaction labs were sent ? Discussed with the Infectious Disease question possible respiratory infection Continue antibiotics for now until blood culture come back. anemia normocytic: 6.3 /20.2 worsening Possible anemia of chronic disease Patient denies any melena or angelo blood in the stool iron studies low iron ,tibc ,ferritin normal fobt neg in january s/p 1 prbc 2 days back, today got almost half of the blood PRBC back, needed to hold rest of prbc bag due to fever, transfusion reaction labs sent . moniter cbc closely insulin-dependent type 2 diabetes with hyperglycemia fs 100-160 Diabetic diet hold lantus , avoid insulin coverage below 200 mg/dl HTN- controlled continue coreg to 6.125 BID Cocaine abuse-Utox positive Addiction med consult Hep C ab positive-Viral load seems detected DVT prophylaxis- hold lovenox due to anemia ,scd. Full code inpatient? need: Acute hypoxemic respiratory failure secondary to above- anasarca, nephrotic syndrome, possible CHF- levels Time Spent With Patient Time: Total time managing care of this patient today ____ minutes. Quality Stroke Does the patient have a stroke diagnosis?: No VTE Prior VTE?: No VTE Risk Level:: Medical - moderate - high VTE Device Contraindication: Treatment Not Indicated VTE Drug Contraindication: N/A - Med Ordered
--- NOTE | 2023-04-22 15:30 | PC.NURSE ---
pt developed fever of 102.4 [address] transfusing PRBCs. Dr[address] paul notified. Pt has recieved 650mg of tylenol at the beginning of transfusion. Transufusion paused and urine sample collected per policy. will continue to monitor
--- NOTE | 2023-04-22 15:32 | MHC.CM.PN ---
Per MD's request, XI spoke with HCP/Phyllis with the assist of a [facility]/Armando. Per Phyllis, Patient would not want CPR and would NOT want to be intubated. Therefor, Phyllis is asking if care can be continued on the 4th flour instead of Patient being transferred to ICU. XI relayed these questions to MD, who agreed to meet with Phyllis again (Armando is available and waiting for MD).
--- NOTE | 2023-04-22 15:33 | PC.NURSE ---
Patient's O2 dropped to 80% on 16L oxymask and patient appeared agitated. MD notified and respiratory paged. Pt placed on high [place] nasal cannula and O2 sat now WNL. patient has current order for ICU transfer. Will continue to monitor
[2023-04-22 15:48] LABS: Glucose, Whole Blood 104 mg/dL (60-115)
[2023-04-22 16:01] LABS: Urine Hemoglobin Large (3+)
--- NOTE | 2023-04-22 16:36 | PC.NURSE ---
pt had POC of 69 at 07:30. MD was notified and pt was too drowsy to amptemt drinking juice. Pt was given 250mLs D10. POC 15 mins later within normal limits MD aware.
--- NOTE | 2023-04-22 16:38 | PM.CCN ---
Critical Care Event Note Summary Date of Service: 04/22/23 Code activated: No Narrative: Seen earlier today for level of care consultation. Since last evaluation with progressive hypoxemia and increased need for nursing care, transferred to intensive care unit on high-flow oxygen. Critical Care Time (minutes): 0
[2023-04-22 16:57] LABS: Glucose, Whole Blood 119 mg/dL (60-115)
[2023-04-22 18:12] LABS: VBG Base Excess 3.5 mmol/L; VBG HCO3 29 mmol/L (22-26); VBG pCO2 54 mmHg; VBG pH 7.34 (7.32-7.43); VBG pO2 45 mmHg
[2023-04-22 18:12] LABS: Venous Blood Gas Refer to POC result
[2023-04-22 18:25] LABS: Albumin Level 4.1 g/dL (3.5-5.0); Anion Gap 16 (12-20); Blood Urea Nitrogen 63 mg/dL (9-16); Calcium 8.5 mg/dL (8.4-10.2); Carbon Dioxide 25 mmol/L (22-29); Chloride 100 mmol/L (96-108); Creatinine Clr Calc Pharmacy 25.5; Estimated Glomerular Filt Rate 23; Glucose Random 108 mg/dL (60-115); Magnesium 2.1 mg/dL (1.6-2.6); Phosphorus 6.3 mg/dL (2.7-4.5); Potassium 4.3 mmol/L (3.3-5.1); Sodium 137 mmol/L (135-145)
--- NOTE | 2023-04-22 19:03 | P.PNNP_ITS ---
Subjective Subjective Date of Service: 04/22/23 Interval history: Seen and examined, Events noted On high dose of diuretic with marginal response given his marked fuid overload Physical Exam Vital Signs: Vital Signs: Last Vital Signs Temp 98.8 F 04/22/23 15:09 Pulse 87 04/22/23 18:00 Resp 14 04/22/23 18:00 BP 167/71 H 04/22/23 18:00 Pulse Ox 94 04/22/23 18:00 O2 Del Method High Flow Nasal C annula 04/22/23 18:00 O2 Flow Rate 50 04/22/23 18:00 FiO2 50 04/22/23 18:00 BMI result Body Mass Index 27.1 ANASARCA Const: General: no acute distress Orientation/consciousness: patient oriented x3 Eyes: EOM: EOMs intact bilaterally Neck: Neck: Yes supple Resp: Auscultation: diminished lung sounds Cardio: Rate: regular rate GI: Palpation (GI): Soft to palpation Neuro: General: patient oriented x3 and moves all extremities Extrem: Other: Edematous Objective Data Labs 04/22/23 06:22 04/22/23 18:04 Labs: Laboratory Results - last 24 hr 04/19/23 04/21/23 04/21/23 09:22 19:34 19:34 WBC RBC Hgb Hct MCV MCH MCHC RDW Plt Count MPV Immature Gran % (Auto) Neut % (Auto) Lymph % (Auto) [place] % (Auto) Eos % (Auto) Baso % (Auto) Lymph # (Auto) [place] # (Auto) Eos # (Auto) Baso # (Auto) Abs Immat Gran (auto) Absolute Neuts (auto) Absolute Nucleated RBC Nucleated RBC % (auto) VBG pH VBG pCO2 VBG pO2 VBG HCO3 VBG O2 Saturation VBG Base Excess Sodium Potassium Chloride Carbon Dioxide Anion Gap BUN Creatinine Estim Creat Clear Calc Estimated GFR POC Glucose Random Glucose Lactic Acid Calcium Phosphorus Magnesium Troponin I High Sens 13.7 B-Natriuretic Peptide 1262 H Albumin Urine Color Urine Appearance Urine pH Ur Specific [place] Urine Protein Urine Glucose (UA) Urine Ketones Urine Hemoglobin Urine Blood Urine Nitrite Ur Leukocyte Esterase Urine RBC Urine WBC Ur Squamous Epith Cells Urine Bacteria Hyaline Casts Blood Type A Positive Antibody Screen NEGATIVE Crossmatch See Detail Clerical Work Check Hemolysis Bld Bag Check Icterus Blood Bag Check Pre-Trans Blood Type Post-Trans Blood Type Post-Trans DEEPAK Poly Post-Trans Add Testing Post-Tx Rxn DEEPAK Result Pathologist Comment [facility] 04/21/23 04/22/23 04/22/23 22:32 06:22 06:22 WBC 7.8 RBC 2.33 L Hgb 6.3 L* Hct 20.2 L* MCV 88.4 MCH 27.0 MCHC 30.6 L RDW 17.6 H Plt Count 247 MPV 11.0 Immature Gran % (Auto) 0.6 H Neut % (Auto) 74.9 H Lymph % (Auto) 12.8 L [place] % (Auto) 10.4 Eos % (Auto) 1.0 Baso % (Auto) 0.3 Lymph # (Auto) 1.0 L [place] # (Auto) 0.8 Eos # (Auto) 0.1 Baso # (Auto) 0.0 Abs Immat Gran (auto) 0.05 H Absolute Neuts (auto) 5.8 Absolute Nucleated RBC 0.000 Nucleated RBC % (auto) 0.0 VBG pH VBG pCO2 VBG pO2 VBG HCO3 VBG O2 Saturation VBG Base Excess Sodium 139 Potassium 5.1 Chloride 105 Carbon Dioxide 23 Anion Gap 16 BUN 57 H Creatinine 2.72 H Estim Creat Clear Calc 26.8 Estimated GFR 24 POC Glucose 144 H Random Glucose 66 Lactic Acid Calcium 8.3 L Phosphorus Magnesium 2.2 Troponin I High Sens B-Natriuretic Peptide Albumin Urine Color Urine Appearance Urine pH Ur Specific [place] Urine Protein Urine Glucose (UA) Urine Ketones Urine Hemoglobin Urine Blood Urine Nitrite Ur Leukocyte Esterase Urine RBC Urine WBC Ur Squamous Epith Cells Urine Bacteria Hyaline Casts Blood Type Antibody Screen Crossmatch Clerical Work Check Hemolysis Bld Bag Check Icterus Blood Bag Check Pre-Trans Blood Type Post-Trans Blood Type Post-Trans DEEPAK Poly Post-Trans Add Testing Post-Tx Rxn DEEPAK Result Pathologist Comment [facility] 04/22/23 04/22/23 04/22/23 06:22 07:08 07:33 WBC RBC Hgb Hct MCV MCH MCHC RDW Plt Count MPV Immature Gran % (Auto) Neut % (Auto) Lymph % (Auto) [place] % (Auto) Eos % (Auto) Baso % (Auto) Lymph # (Auto) [place] # (Auto) Eos # (Auto) Baso # (Auto) Abs Immat Gran (auto) Absolute Neuts (auto) Absolute Nucleated RBC Nucleated RBC % (auto) VBG pH VBG pCO2 VBG pO2 VBG HCO3 VBG O2 Saturation VBG Base Excess Sodium Potassium Chloride Carbon Dioxide Anion Gap BUN Creatinine Estim Creat Clear Calc Estimated GFR POC Glucose 69 Random Glucose Lactic Acid 0.5 Calcium Phosphorus Magnesium Troponin I High Sens B-Natriuretic Peptide Albumin Urine Color Yellow Urine Appearance Clear Urine pH 5.5 Ur Specific [place] 1.010 Urine Protein 300 (3+) H Urine Glucose (UA) Negative Urine Ketones Negative Urine Hemoglobin Urine Blood Moderate (2+) H Urine Nitrite Negative Ur Leukocyte Esterase Negative Urine RBC 3-5 H Urine WBC 0-5 Ur Squamous Epith Cells 0-2 Urine Bacteria 2+ Hyaline Casts 6-10 Blood Type Antibody Screen Crossmatch Clerical Work Check Hemolysis Bld Bag Check Icterus Blood Bag Check Pre-Trans Blood Type Post-Trans Blood Type Post-Trans DEEPAK Poly Post-Trans Add Testing Post-Tx Rxn DEEPAK Result Pathologist Comment [facility] 04/22/23 04/22/23 04/22/23 08:19 09:11 11:10 WBC RBC Hgb Hct MCV MCH MCHC RDW Plt Count MPV Immature Gran % (Auto) Neut % (Auto) Lymph % (Auto) [place] % (Auto) Eos % (Auto) Baso % (Auto) Lymph # (Auto) [place] # (Auto) Eos # (Auto) Baso # (Auto) Abs Immat Gran (auto) Absolute Neuts (auto) Absolute Nucleated RBC Nucleated RBC % (auto) VBG pH VBG pCO2 VBG pO2 VBG HCO3 VBG O2 Saturation VBG Base Excess Sodium Potassium Chloride Carbon Dioxide Anion Gap BUN Creatinine Estim Creat Clear Calc Estimated GFR POC Glucose 162 H 110 Random Glucose Lactic Acid Calcium Phosphorus Magnesium Troponin I High Sens 25.4 D B-Natriuretic Peptide Albumin Urine Color Urine Appearance Urine pH Ur Specific [place] Urine Protein Urine Glucose (UA) Urine Ketones Urine Hemoglobin Urine Blood Urine Nitrite Ur Leukocyte Esterase Urine RBC Urine WBC Ur Squamous Epith Cells Urine Bacteria Hyaline Casts Blood Type Antibody Screen Crossmatch Clerical Work Check Hemolysis Bld Bag Check Icterus Blood Bag Check Pre-Trans Blood Type Post-Trans Blood Type Post-Trans DEEPAK Poly Post-Trans Add Testing Post-Tx Rxn DEEPAK Result Pathologist Comment [facility] 04/22/23 04/22/23 04/22/23 11:10 11:31 13:09 WBC RBC Hgb Hct MCV MCH MCHC RDW Plt Count MPV Immature Gran % (Auto) Neut % (Auto) Lymph % (Auto) [place] % (Auto) Eos % (Auto) Baso % (Auto) Lymph # (Auto) [place] # (Auto) Eos # (Auto) Baso # (Auto) Abs Immat Gran (auto) Absolute Neuts (auto) Absolute Nucleated RBC Nucleated RBC % (auto) VBG pH VBG pCO2 VBG pO2 VBG HCO3 VBG O2 Saturation VBG Base Excess Sodium Potassium Chloride Carbon Dioxide Anion Gap BUN Creatinine Estim Creat Clear Calc Estimated GFR POC Glucose 98 Random Glucose Lactic Acid Calcium Phosphorus Magnesium Troponin I High Sens B-Natriuretic Peptide 1658 H Albumin Urine Color Urine Appearance Urine pH Ur Specific [place] Urine Protein Urine Glucose (UA) Urine Ketones Urine Hemoglobin Urine Blood Urine Nitrite Ur Leukocyte Esterase Urine RBC Urine WBC Ur Squamous Epith Cells Urine Bacteria Hyaline Casts Blood Type A Positive Antibody Screen NEGATIVE Crossmatch See Detail Clerical Work Check Hemolysis Bld Bag Check Icterus Blood Bag Check Pre-Trans Blood Type Post-Trans Blood Type Post-Trans DEEPAK Poly Post-Trans Add Testing Post-Tx Rxn DEEPAK Result Pathologist Comment [facility] 04/22/23 04/22/23 04/22/23 15:45 15:45 16:51 WBC RBC Hgb Hct MCV MCH MCHC RDW Plt Count MPV Immature Gran % (Auto) Neut % (Auto) Lymph % (Auto) [place] % (Auto) Eos % (Auto) Baso % (Auto) Lymph # (Auto) [place] # (Auto) Eos # (Auto) Baso # (Auto) Abs Immat Gran (auto) Absolute Neuts (auto) Absolute Nucleated RBC Nucleated RBC % (auto) VBG pH VBG pCO2 VBG pO2 VBG HCO3 VBG O2 Saturation VBG Base Excess Sodium Potassium Chloride Carbon Dioxide Anion Gap BUN Creatinine Estim Creat Clear Calc Estimated GFR POC Glucose 104 119 H Random Glucose Lactic Acid Calcium Phosphorus Magnesium Troponin I High Sens B-Natriuretic Peptide Albumin Urine Color Urine Appearance Urine pH Ur Specific [place] Urine Protein Urine Glucose (UA) Urine Ketones Urine Hemoglobin Urine Blood Urine Nitrite Ur Leukocyte Esterase Urine RBC Urine WBC Ur Squamous Epith Cells Urine Bacteria Hyaline Casts Blood Type Antibody Screen Crossmatch Clerical Work Check No Error Found Hemolysis Bld Bag Check None in Pre and Post Icterus Blood Bag Check None in Pre and Post Pre-Trans Blood Type A POSITIVE Post-Trans Blood Type A Positive Post-Trans DEEPAK Poly NEGATIVE Post-Trans Add Testing No Post-Tx Rxn DEEPAK Result TNP Pathologist Comment [facility] 04/22/23 04/22/23 04/22/23 18:04 18:05 Unknown WBC RBC Hgb Hct MCV MCH MCHC RDW Plt Count MPV Immature Gran % (Auto) Neut % (Auto) Lymph % (Auto) [place] % (Auto) Eos % (Auto) Baso % (Auto) Lymph # (Auto) [place] # (Auto) Eos # (Auto) Baso # (Auto) Abs Immat Gran (auto) Absolute Neuts (auto) Absolute Nucleated RBC Nucleated RBC % (auto) VBG pH 7.34 VBG pCO2 54 VBG pO2 45 VBG HCO3 29 H VBG O2 Saturation 70.0 VBG Base Excess 3.5 Sodium 137 Potassium 4.3 Chloride 100 Carbon Dioxide 25 Anion Gap 16 BUN 63 H Creatinine 2.86 H Estim Creat Clear Calc 25.5 Estimated GFR 23 POC Glucose Random Glucose 108 Lactic Acid Calcium 8.5 Phosphorus 6.3 H Magnesium 2.1 Troponin I High Sens B-Natriuretic Peptide Albumin 4.1 Urine Color Urine Appearance Urine pH Ur Specific [place] Urine Protein Urine Glucose (UA) Urine Ketones Urine Hemoglobin Large (3+) H Urine Blood Urine Nitrite Ur Leukocyte Esterase Urine RBC Urine WBC Ur Squamous Epith Cells Urine Bacteria Hyaline Casts Blood Type Antibody Screen Crossmatch Clerical Work Check Hemolysis Bld Bag Check Icterus Blood Bag Check Pre-Trans Blood Type Post-Trans Blood Type Post-Trans DEEPAK Poly Post-Trans Add Testing Post-Tx Rxn DEEPAK Result Pathologist Comment [facility] Procedures Date of Service Date of Service: 04/22/23 Assessment & Plan Assessment and plan (1) Acute kidney failure: Status: Acute Assessment and Plan: Non-Oligurc KWAME: multi-fact ischemic/renal hypoperfusion CKD 3: Bx proven DN/TMA Marked Fluid overload/Anasarca: diureticresitant Overall poor prognosis and focus carmen diuresiseven if WRF/KWAME and at some pointmay progress to needing dialysis REC: incr bumex drip and IV diuril and POzaroxlyn; track UOP/renal func; IV albuminas well; check seroas ordered previusly ( CARA,ANCA etc..) Will follwow with team Time Spent With Patient Time: Total time managing care of this patient today ____ minutes. Progress Note: Quality Stroke Does the patient have a stroke diagnosis?: No
[2023-04-22] MEDS: Albuterol Sulfate (0.083%) 2.5 MG/3 ML VIAL.NEB INHALE (20:23)
[2023-04-22 20:39] LABS: MANUAL DIFF FLAG NO
[2023-04-22 20:41] LABS: Basophils Percent Auto 0.3 % (0-2); Eosinophils Percent Auto 0.2 % (0-4); Hematocrit 23.4 % (42.0-52.0); Hemoglobin 7.2 g/dl (14.0-18.0); Imm Gran Abs Auto 0.05 X10*3/uL (0.00-0.03); Imm Gran Pct Auto 0.4 % (0.0-0.4); Lymphocytes Percent Auto 7.5 % (20-40); Mean Corpuscular HGB Conc 30.8 g/dl (31.0-36.0); Mean Corpuscular Hemoglobin 27.6 pg (27.0-33.0); Mean Corpuscular Volume 89.7 fL (80.0-98.0); Mean Platelet Volume 10.5 fL (9.4-12.4); Monocytes Percent Auto 7.7 % (2-11); Neutrophils Absolute Auto 10.6 x10*3/uL (2.0-8.3); Neutrophils Percent Auto 83.9 % (45-73); Platelet Count 250 X10*3/uL (160-400); Red Blood Count 2.61 X10*6/uL (4.60-5.80); Red Cell Distribution Width 17.1 % (11.0-16.0); White Blood Count 12.7 X10*3/uL (4.8-10.8)
[2023-04-22 21:00] LABS: Glucose, Whole Blood 148 mg/dL (60-115)
[2023-04-22] MEDS: prednisoLONE Acetate 1 % Oph Susp 5 ML DRPBTL 1 DROP EYE-BOTH (21:27)
[2023-04-22] MEDS: Ketorolac Tromethamine 0.5% Op 5 ML DROPS 1 DROP EYE-BOTH (21:28)
--- NOTE | 2023-04-22 22:10 | P.CNID_ITS ---
History of Present Illness Data of Consult Service Date: 04/22/23 Requesting physician: Fadia Rubi Primary Care Provider: Allison Montilla MD [facility] Reason for consult: fever of unknown origin,lung infiltrates He presents to hospital with shortness of breath and found to have hypoxia. He has renal failure and diffuse infiltrates on CXR. He is on Bumex drip and concern over CHF. He also has WBC count of 12.7 Review of Systems Review of Systems: Yes all other systems are reviewed and are negative [facility] Past Medical History Medical History (Updated 04/22/23 @ 22:15 by Pattie Perla MD) Anemia Chronic pain syndrome Depression Diabetic nephropathy Diabetic polyneuropathy HLD (hyperlipidemia) HTN (hypertension) Pneumonia T2DM (type 2 diabetes mellitus) Vitamin D deficiency Family History Family History Father Colon cancer Mother History of kidney problems T2DM (type 2 diabetes mellitus) Sister T2DM (type 2 diabetes mellitus) Family history: reviewed and not pertinent Surgical History Surgical History Hx of colonoscopy Hx of rotator cuff surgery Status post biopsy of kidney Social History Social History Household Members: Unknown / Unable to assess Alcohol intake: never Patient Tobacco Use Status: Never used Tobacco Use of substances other than those prescribed or required for medical reasons: Refusing to respond Substance Use Type: Crack/Cocaine Currently Displaying Signs/Symptoms of Drug Intoxication Withdrawal: No Have you been hit, kicked, punched, or otherwise hurt by someone within the past year? If so, by whom?: No Do you feel safe in your current relationship?: No Current Relationship Is there a partner from a previous relationship who is making you feel unsafe now?: No Are you made to feel afraid or neglected: No Advance Directives: Yes Advance Directives Information Provided: Yes Advance Directives on File: No Advance Directives Date on File: 04/18/23 Do you have thoughts of harming others: None Do you have a plan to hurt others: No Plan Recently lost weight without trying: No Eating poorly because of decreased appetite: No Nutrition Risks: No Nutritional Risk service: No Current occupational status: disabled Current occupation: right handed Meds Allergies Allergy/AdvReac Type Severity Reaction Status Date / Time No Known Allergies Allergy Verified 04/18/23 09:11 [No Known Allergies*] Active Medications: Current Medications Acetaminophen (Acetaminophen 325 Mg Tablet) 650 mg PO Q6H PRN PRN Reason: Pain, Mild (Pain Scale 1-3) Last Admin: 04/22/23 17:09 Dose: 650 mg Albuterol Sulfate (Albuterol Sulfate (0.083%) 2.5 Mg/3 Ml Vial.Neb) 2.5 mg INH ENRIQUE Q4H PRN PRN Reason: Wheezing Last Admin: 04/22/23 20:23 Dose: 2.5 mg Benzocaine (Throat Lozenge, Medicated Lozenge) 1 lozenge MUCOUS MEM Q2H PRN PRN Reason: Sore Throat Glucose (Glucose Gel 15 Gm Gel..Gram.) 15 gm PO Q15M PRN; Protocol PRN Reason: per Hypoglycemia Standing Ord. Dextrose (D10) 250 mls @ 750 mls/hr IV Q15M PRN; Protocol PRN Reason: per Hypoglycemia Standing Ord. Last Infusion: 04/22/23 09:50 Dose: Infused Dextrose (D10) 250 mls @ 750 mls/hr IV Q15M PRN; Protocol PRN Reason: per Hypoglycemia Standing Ord. Bumetanide 25 mg/ IV (Miscellaneous Supplies) 100 mls @ 4 mls/hr IVCONT .Q24H [facility] Last Admin: 04/22/23 10:59 Dose: 1 mg/hr, 4 mls/hr Albumin Human (Kedbumin 25 %) 100 mls @ 100 mls/hr IV Q6H [facility] Stop: 04/23/23 04:29 Last Infusion: 04/22/23 21:45 Dose: Infused Doxycycline Hyclate 100 mg/ (Sodium Chloride) 250 mls @ 166.67 mls/hr IV Q12H [facility] Ceftriaxone Sodium 2 gm/ (Sodium Chloride) 50 mls @ 100 mls/hr IV Q24H [facility] Insulin Glargine (Insulin Glargine,Hum.Rec.Anlog 100 Unit/Ml 10 Ml Vial) 20 unit SUBCUT BEDTIME [facility] Last Admin: 04/21/23 22:38 Dose: 20 unit Insulin Human Lispro (Insulin Lispro 100 Unit/Ml 3 Ml Vial) 0 unit SUBCUT QIDACHS [facility]; Protocol Last Admin: 04/22/23 20:55 Dose: Not Given Ketorolac Tromethamine (Ketorolac Tromethamine 0.5% Op 5 Ml Drops) 1 drop EYE- BOTH TID [facility] Last Admin: 04/22/23 21:28 Dose: 1 drop Ondansetron HCl (Ondansetron Hcl 4 Mg/2 Ml Vial) 4 mg IVPUSH Q8H PRN PRN Reason: Nausea and Vomiting Pantoprazole Sodium (Pantoprazole Sodium 40 Mg/10 Ml Vial) 40 mg IVPUSH DAILY@0630 [facility] Last Admin: 04/22/23 16:41 Dose: Not Given Pharmacy Consult (Consult Rx Perform Med Rec) 1 each MISCELLANE ONCE PRN PRN Reason: Consult order Prednisolone Acetate (Prednisolone Acetate 1 % Oph Susp 5 Ml Drpbtl) 1 drop EYE-BOTH TID [facility] Last Admin: 04/22/23 21:27 Dose: 1 drop Sodium Chloride (0.9 % Sodium Chloride Flush 3 Ml Syringe) 3 ml IVFLUSH QSVAFT [facility] Last Admin: 04/22/23 17:10 Dose: 3 ml Home Medications Medication Instructions Recorded Confirmed Last Taken Type dulaglutide 1.5 mg/0.5 mL 1.5 mg subcut WE@0900 09/25/20 04/18/23 01/26/23 History subcutaneous pen injector (Trulicity) metformin 1,000 mg tablet 1,000 mg PO BID 09/25/20 04/18/23 01/30/23 History insulin glargine 100 unit/mL (3 32 unit subcut BEDTIME 12/22/20 04/18/2301/30 History mL) subcutaneous pen (Lantus Solostar U-100 Insulin) insulin lispro 100 unit/mL 12 unit subcut TIDAC 12/22/20 04/18/23 04/18/23 History subcutaneous pen (Humalog KwikPen (U-100) Insulin) ketorolac 0.5 % eye drops 1 drp ophthalmic (eye) TID 01/31/23 04/18/23 Unknown History prednisolone acetate 1 % eye 1 drp ophthalmic (eye) TID 01/31/23 04/18/23 Unknown History drops,suspension diphenhydramine HCl 25 mg capsule 25 mg PO BEDTIME 04/18/23 04/18/23 Unknown History (Benadryl) ferrous sulfate 325 mg (65 mg 325 mg PO DAILY 04/18/23 04/18/23 Unknown History iron) tablet furosemide 20 mg tablet (Lasix) 40 mg PO DAILY 04/18/23 04/18/23 Unknown History gabapentin 800 mg tablet 800 mg PO TID 04/18/23 04/18/23 Unknown History ramelteon 8 mg tablet 8 mg PO BEDTIME PRN Insomnia 04/18/23 04/18/23 04/17/23 History tamsulosin 0.4 mg capsule 0.4 mg PO DAILY 04/18/23 04/18/23 Unknown History ziprasidone HCl 60 mg capsule 60 mg PO BID 04/18/23 04/18/23 Unknown History (Geodon) Physical Exam Vital Signs: Vital Signs: Last Vital Signs Temp 99.3 F 04/22/23 21:00 Pulse 93 04/22/23 22:00 Resp 18 04/22/23 22:00 BP 171/82 H 04/22/23 22:00 Pulse Ox 97 04/22/23 22:00 O2 Del Method High Flow Nasal C annula 04/22/23 22:00 O2 Flow Rate 50 04/22/23 22:00 FiO2 50 04/22/23 22:00 BMI result Body Mass Index 27.1 Const: General: cooperative HEENT: Head: Yes normal to inspection Face and sinus: Yes normal facial exam Mouth: Normal oral and palatal mucosa present Teeth and gingiva: dentition normal Eyes: General: appearance normal, both eyes and all related structures Pupils: Equal, round and reactive pupils present Resp: Other: decreased breath sounds bases Cardio: Rate: regular rate Rhythm: regular rhythm GI: Palpation (GI): Soft to palpation and nontender : General: Yes no CVA tenderness Back/Spine/Pelvis: Back: no CVA tenderness Skin: General skin exam: no rashes or lesions noted Neuro: General: moves all extremities Cranial nerves: Yes Equal, round and reactive pupils present Extrem: General: Yes normal to inspection Psych: Appearance: grossly normal Results Labs 04/22/23 20:33 04/22/23 18:04 Labs: Short CBC 04/22/23 04/22/23 Range/Units 06:22 20:33 WBC 7.8 12.7 H (4.8-10.8) X10*3/uL Hgb 6.3 L* 7.2 L (14.0-18.0) g/dl Hct 20.2 L* 23.4 L (42.0-52.0) % Plt Count 247 250 (160-400) X10*3/uL BMP 04/22/23 04/22/23 06:22 18:04 Sodium 139 137 Potassium 5.1 4.3 Chloride 105 100 Carbon Dioxide 23 25 BUN 57 H 63 H Creatinine 2.72 H 2.86 H Calcium 8.3 L 8.5 Liver Function 04/22/23 Range/Units 18:04 Albumin 4.1 (3.5-5.0) g/dL Urine 04/22/23 Range/Units 07:08 Urine Color Yellow Urine Appearance Clear Urine pH 5.5 (5.0-9.0) Ur Specific [place] 1.010 (1.005-1.025) Urine Protein 300 (3+) H (Neg-Trace) mg/dL Urine Glucose (UA) Negative (Negative) mg/dL Assessment and Plan (1) Decompensated heart failure: Status: Acute (2) Anasarca: Status: Acute (3) Pneumonia: Status: Acute He has fever as well as leukocytosis with hypoxia so there is concern by PORT criteria 3/5 positive for pneumonia. He has renal failure. There is possible Legionella,MRSA less likely HIV. Plan Ceftriaxone and Doxycycline cover pneumonia,probably switch to po on discharge for total seven days. Check urine Legionella antigen. Check MRSA,strep pneumonia. Check HIV test. Time Spent With Patient Time: Total time managing care of this patient today ____ minutes.
[2023-04-22] MEDS: cefTRIAXone sodium 2 GM in 0.9 % Sodium Chloride 50 ML IV (22:50)
[2023-04-22] MEDS: Doxycycline Hyclate 100 MG in 0.9 % Sodium Chloride 250 ML 166.67 MG IV (23:56)
[2023-04-23] VITALS (20 sets, daily range): BP systolic 139–173; BP diastolic 53–91; PULSE 68–93; RESP 12–25; TEMP 36.7–37.2; O2SAT 92–100; BMI 28.5
[2023-04-23] MEDS: Albumin Human 25 % 100 ML IV (02:43)
[2023-04-23] MEDS: Pantoprazole Sodium 40 MG/10 ML VIAL IVPUSH (05:35)
[2023-04-23 06:05] LABS: VBG Base Excess 8.1 mmol/L; VBG HCO3 32 mmol/L (22-26); VBG pCO2 43 mmHg; VBG pH 7.47 (7.32-7.43); VBG pO2 28 mmHg
[2023-04-23 06:06] LABS: MANUAL DIFF FLAG NO
[2023-04-23 06:10] LABS: Basophils Absolute Auto 0.1 X10*3/uL (0.0-0.2); Basophils Percent Auto 0.5 % (0-2); Eosinophils Percent Auto 0.2 % (0-4); Hematocrit 27.2 % (42.0-52.0); Hemoglobin 8.3 g/dl (14.0-18.0); Imm Gran Abs Auto 0.05 X10*3/uL (0.00-0.03); Imm Gran Pct Auto 0.4 % (0.0-0.4); Lymphocytes Absolute Auto 1.2 X10*3/uL (1.2-4.9); Mean Corpuscular HGB Conc 30.5 g/dl (31.0-36.0); Mean Corpuscular Hemoglobin 27.3 pg (27.0-33.0); Mean Corpuscular Volume 89.5 fL (80.0-98.0); Mean Platelet Volume 10.4 fL (9.4-12.4); Monocytes Absolute Auto 0.9 X10*3/uL (0.1-1.2); Monocytes Percent Auto 7.4 % (2-11); Neutrophils Percent Auto 81.5 % (45-73); Platelet Count 251 X10*3/uL (160-400); Red Blood Count 3.04 X10*6/uL (4.60-5.80); Red Cell Distribution Width 17.1 % (11.0-16.0); White Blood Count 12.2 X10*3/uL (4.8-10.8)
[2023-04-23 06:31] LABS: Albumin Level 4.3 g/dL (3.5-5.0); Anion Gap 19 (12-20); Blood Urea Nitrogen 70 mg/dL (9-16); Calcium 8.8 mg/dL (8.4-10.2); Carbon Dioxide 26 mmol/L (22-29); Chloride 98 mmol/L (96-108); Creatinine Clr Calc Pharmacy 24.7; Estimated Glomerular Filt Rate 22; Glucose Random 164 mg/dL (60-115); Magnesium 2.1 mg/dL (1.6-2.6); Phosphorus 6.8 mg/dL (2.7-4.5); Potassium 4.1 mmol/L (3.3-5.1); Sodium 139 mmol/L (135-145)
[2023-04-23] MEDS: Bumetanide 25 MG in Container,Empty 0 ML 4 MG IVCONT (06:39)
[2023-04-23 06:43] LABS: Venous Blood Gas Refer to POC result
[2023-04-23] MEDS: Ketorolac Tromethamine 0.5% Op 5 ML DROPS 1 DROP EYE-BOTH ×3 (07:28→21:39)
[2023-04-23] MEDS: 0.9 % Sodium Chloride Flush 3 ML SYRINGE IVFLUSH ×3 (07:28→21:39)
[2023-04-23] MEDS: prednisoLONE Acetate 1 % Oph Susp 5 ML DRPBTL 1 DROP EYE-BOTH ×3 (07:36→21:39)
[2023-04-23] MEDS: Acetaminophen 325 MG TABLET 650 MG PO (07:39)
[2023-04-23 07:40] LABS: Glucose, Whole Blood 135 mg/dL (60-115)
[2023-04-23 08:51] LABS: MRSA Nasal PCR NEGATIVE (Negative); SA Nasal PCR POSITIVE (Negative)
--- NOTE | 2023-04-23 09:47 | PM.PNCARD ---
Subjective Subjective Date of Service: 04/23/23 Principal diagnosis: CHF Interval history: Patient has diuresed about 3 L. Respiratory status compared to yesterday as improved. Renal function has slightly worsened. Still remains fluid overloaded. Still requiring high oxygen levels. Echocardiogram shows further worsening diastolic dysfunction and slightly reduced LV systolic function with pulmonary hypertension. Been told by Nephrology that he had a biopsy and that had not shown any evidence of light chain amyloidosis. Review of Systems Constitutional: Reports weakness Cardiovascular: Reports Abdominal Distension, Denies chest pain, Reports leg edema, Denies lightheadedness, Denies palpitations and Reports dyspnea (Improving as per patient) Respiratory: Reports dyspnea (Improving as per patient) Gastrointestinal: Reports no additional gastrointestinal complaints Reports system reviewed and no additional complaints, except as documented and Reports weakness Endocrine: Denies palpitations Physical Exam Vital Signs: Last Vital Signs Temp 98.0 F 04/23/23 07:00 Pulse 83 04/23/23 09:00 Resp 18 04/23/23 09:00 BP 140/65 H 04/23/23 09:00 Pulse Ox 93 04/23/23 09:00 O2 Del Method High Flow Nasal Cannula 04/23/23 09:00 O2 Flow Rate 30 04/23/23 09:00 FiO2 40 04/23/23 09:00 BMI result Body Mass Index 28.5 Const General: cooperative, alert, awake and in distress moderate and respiratory Nutritional Appearance: average body habitus Orientation/consciousness: patient oriented x3 Neck Neck: Yes trachea midline, Yes supple and Yes JVD Resp Effort & Inspection: normal respiratory effort Auscultation: crackles and diminished lung sounds Cardio Jugular venous distension: JVD Rate: regular rate Rhythm: regular rhythm Heart sounds: S1 normal heart sound present, S2 normal heart sound present, no click, no gallops, no murmurs and no rubs GI Auscultation: normal bowel sounds Neuro General: patient oriented x3 and no focal motor deficits Extrem General: No clubbing, No cyanosis and Yes edema Objective Labs and Meds 04/23/23 05:59 04/23/23 05:59 Lab results: Laboratory Results - last 24 hr 04/19/23 04/22/23 04/22/23 09:22 11:10 11:10 WBC RBC Hgb Hct MCV MCH MCHC RDW Plt Count MPV Immature Gran % (Auto) Neut % (Auto) Lymph % (Auto) [place] % (Auto) Eos % (Auto) Baso % (Auto) Lymph # (Auto) [place] # (Auto) Eos # (Auto) Baso # (Auto) Abs Immat Gran (auto) Absolute Neuts (auto) Absolute Nucleated RBC Nucleated RBC % (auto) VBG pH VBG pCO2 VBG pO2 VBG HCO3 VBG O2 Saturation VBG Base Excess Sodium Potassium Chloride Carbon Dioxide Anion Gap BUN Creatinine Estim Creat Clear Calc Estimated GFR POC Glucose Random Glucose Calcium Phosphorus Magnesium Troponin I High Sens 25.4 D B-Natriuretic Peptide 1658 H Albumin Urine Hemoglobin Nasal Screen MRSA (PCR) Nasal S. aureus Screen Nasal MRSA/S.aureus Interp Blood Type A Positive Antibody Screen NEGATIVE Crossmatch See Detail Clerical Work Check Hemolysis Bld Bag Check Icterus Blood Bag Check Pre-Trans Blood Type Post-Trans Blood Type Post-Trans DEEPAK Poly Post-Trans Add Testing Post-Tx Rxn DEEPAK Result Pathologist Comment [facility] 04/22/23 04/22/23 04/22/23 11:31 13:09 15:45 WBC RBC Hgb Hct MCV MCH MCHC RDW Plt Count MPV Immature Gran % (Auto) Neut % (Auto) Lymph % (Auto) [place] % (Auto) Eos % (Auto) Baso % (Auto) Lymph # (Auto) [place] # (Auto) Eos # (Auto) Baso # (Auto) Abs Immat Gran (auto) Absolute Neuts (auto) Absolute Nucleated RBC Nucleated RBC % (auto) VBG pH VBG pCO2 VBG pO2 VBG HCO3 VBG O2 Saturation VBG Base Excess Sodium Potassium Chloride Carbon Dioxide Anion Gap BUN Creatinine Estim Creat Clear Calc Estimated GFR POC Glucose 98 Random Glucose Calcium Phosphorus Magnesium Troponin I High Sens B-Natriuretic Peptide Albumin Urine Hemoglobin Nasal Screen MRSA (PCR) Nasal S. aureus Screen Nasal MRSA/S.aureus Interp Blood Type A Positive Antibody Screen NEGATIVE Crossmatch See Detail Clerical Work Check No Error Found Hemolysis Bld Bag Check None in Pre and Post Icterus Blood Bag Check None in Pre and Post Pre-Trans Blood Type A POSITIVE Post-Trans Blood Type A Positive Post-Trans DEEPAK Poly NEGATIVE Post-Trans Add Testing No Post-Tx Rxn DEEPAK Result TNP Pathologist Comment [facility] HERNANDE[facility] 04/22/23 04/22/23 04/22/23 15:45 16:51 18:04 WBC RBC Hgb Hct MCV MCH MCHC RDW Plt Count MPV Immature Gran % (Auto) Neut % (Auto) Lymph % (Auto) [place] % (Auto) Eos % (Auto) Baso % (Auto) Lymph # (Auto) [place] # (Auto) Eos # (Auto) Baso # (Auto) Abs Immat Gran (auto) Absolute Neuts (auto) Absolute Nucleated RBC Nucleated RBC % (auto) VBG pH VBG pCO2 VBG pO2 VBG HCO3 VBG O2 Saturation VBG Base Excess Sodium 137 Potassium 4.3 Chloride 100 Carbon Dioxide 25 Anion Gap 16 BUN 63 H Creatinine 2.86 H Estim Creat Clear Calc 25.5 Estimated GFR 23 POC Glucose 104 119 H Random Glucose 108 Calcium 8.5 Phosphorus 6.3 H Magnesium 2.1 Troponin I High Sens B-Natriuretic Peptide Albumin 4.1 Urine Hemoglobin Nasal Screen MRSA (PCR) Nasal S. aureus Screen Nasal MRSA/S.aureus Interp Blood Type Antibody Screen Crossmatch Clerical Work Check Hemolysis Bld Bag Check Icterus Blood Bag Check Pre-Trans Blood Type Post-Trans Blood Type Post-Trans DEEPAK Poly Post-Trans Add Testing Post-Tx Rxn DEEPAK Result Pathologist Comment [facility] 04/22/23 04/22/23 04/22/23 18:05 20:33 20:45 WBC 12.7 H RBC 2.61 L Hgb 7.2 L Hct 23.4 L MCV 89.7 MCH 27.6 MCHC 30.8 L RDW 17.1 H Plt Count 250 MPV 10.5 Immature Gran % (Auto) 0.4 Neut % (Auto) 83.9 H Lymph % (Auto) 7.5 L [place] % (Auto) 7.7 Eos % (Auto) 0.2 Baso % (Auto) 0.3 Lymph # (Auto) 1.0 L [place] # (Auto) 1.0 Eos # (Auto) 0.0 Baso # (Auto) 0.0 Abs Immat Gran (auto) 0.05 H Absolute Neuts (auto) 10.6 H Absolute Nucleated RBC 0.000 Nucleated RBC % (auto) 0.0 VBG pH 7.34 VBG pCO2 54 VBG pO2 45 VBG HCO3 29 H VBG O2 Saturation 70.0 VBG Base Excess 3.5 Sodium Potassium Chloride Carbon Dioxide Anion Gap BUN Creatinine Estim Creat Clear Calc Estimated GFR POC Glucose 148 H Random Glucose Calcium Phosphorus Magnesium Troponin I High Sens B-Natriuretic Peptide Albumin Urine Hemoglobin Nasal Screen MRSA (PCR) Nasal S. aureus Screen Nasal MRSA/S.aureus Interp Blood Type Antibody Screen Crossmatch Clerical Work Check Hemolysis Bld Bag Check Icterus Blood Bag Check Pre-Trans Blood Type Post-Trans Blood Type Post-Trans DEEPAK Poly Post-Trans Add Testing Post-Tx Rxn DEEPAK Result Pathologist Comment [facility] 04/22/23 04/22/23 04/23/23 23:40 Unknown 05:55 WBC RBC Hgb Hct MCV MCH MCHC RDW Plt Count MPV Immature Gran % (Auto) Neut % (Auto) Lymph % (Auto) [place] % (Auto) Eos % (Auto) Baso % (Auto) Lymph # (Auto) [place] # (Auto) Eos # (Auto) Baso # (Auto) Abs Immat Gran (auto) Absolute Neuts (auto) Absolute Nucleated RBC Nucleated RBC % (auto) VBG pH 7.47 H VBG pCO2 43 VBG pO2 28 VBG HCO3 32 H VBG O2 Saturation 40.0 VBG Base Excess 8.1 Sodium Potassium Chloride Carbon Dioxide Anion Gap BUN Creatinine Estim Creat Clear Calc Estimated GFR POC Glucose Random Glucose Calcium Phosphorus Magnesium Troponin I High Sens B-Natriuretic Peptide Albumin Urine Hemoglobin Large (3+) H Nasal Screen MRSA (PCR) NEGATIVE Nasal S. aureus Screen POSITIVE A Nasal MRSA/S.aureus Interp SEE NOTE Blood Type Antibody Screen Crossmatch Clerical Work Check Hemolysis Bld Bag Check Icterus Blood Bag Check Pre-Trans Blood Type Post-Trans Blood Type Post-Trans DEEPAK Poly Post-Trans Add Testing Post-Tx Rxn DEEPAK Result Pathologist Comment [facility] 04/23/23 04/23/23 04/23/23 05:59 05:59 07:27 WBC 12.2 H RBC 3.04 L Hgb 8.3 L Hct 27.2 L MCV 89.5 MCH 27.3 MCHC 30.5 L RDW 17.1 H Plt Count 251 MPV 10.4 Immature Gran % (Auto) 0.4 Neut % (Auto) 81.5 H Lymph % (Auto) 10.0 L [place] % (Auto) 7.4 Eos % (Auto) 0.2 Baso % (Auto) 0.5 Lymph # (Auto) 1.2 [place] # (Auto) 0.9 Eos # (Auto) 0.0 Baso # (Auto) 0.1 Abs Immat Gran (auto) 0.05 H Absolute Neuts (auto) 10.0 H Absolute Nucleated RBC 0.000 Nucleated RBC % (auto) 0.0 VBG pH VBG pCO2 VBG pO2 VBG HCO3 VBG O2 Saturation VBG Base Excess Sodium 139 Potassium 4.1 Chloride 98 Carbon Dioxide 26 Anion Gap 19 BUN 70 H Creatinine 3.02 H Estim Creat Clear Calc 24.7 Estimated GFR 22 POC Glucose 135 H Random Glucose 164 H Calcium 8.8 Phosphorus 6.8 H Magnesium 2.1 Troponin I High Sens B-Natriuretic Peptide Albumin 4.3 Urine Hemoglobin Nasal Screen MRSA (PCR) Nasal S. aureus Screen Nasal MRSA/S.aureus Interp Blood Type Antibody Screen Crossmatch Clerical Work Check Hemolysis Bld Bag Check Icterus Blood Bag Check Pre-Trans Blood Type Post-Trans Blood Type Post-Trans DEEPAK Poly Post-Trans Add Testing Post-Tx Rxn DEEPAK Result Pathologist Comment [facility] Imaging Radiologist's impression: Impressions Chest X-Ray 04/22/23 16:00 IMPRESSION: Increasing bilateral central airspace disease. Differential would include pulmonary edema and pneumonia. Small right pleural effusion. Progress Note: A&P Assessment and plan (1) Decompensated heart failure: Status: Acute Assessment and Plan: Decompensated congestive heart failure, rapidly progressive with progressive diastolic dysfunction this middle-aged man is clinically challenging to figure out at this point time. However he is clinically improving with diuresis. Continue Bumex drip and add metolazone or Diuril to boost diuresis. Strict intake and output chart needs to be pursued. Continue to monitor renal function closely and replace electrolytes as needed. Continue supportive treatment. As per Nephrology has had kidney biopsy, results are not in the chart. Are there is no evidence of amyloidosis is and was suggested that he had diabetic and hypertensive nephropathy. May need further testing for ATTR type of cardiac amyloidosis especially with genetic testing. Continue aggressive control of blood pressure, consider adding hydralazine for afterload reduction given his advanced renal dysfunction. Will continue to follow with you Time Spent With Patient Time: Total time managing care of this patient today ____ minutes. Progress Note: Quality Stroke Does the patient have a stroke diagnosis?: No Procedures Date of Service Date of Service: 04/23/23
[2023-04-23] MEDS: Doxycycline Hyclate 100 MG in 0.9 % Sodium Chloride 250 ML 166.67 MG IV ×2 (10:58→22:39)
--- NOTE | 2023-04-23 10:58 | PM.CCPN ---
Subjective Subjective Date of Service: 04/23/23 Interval History: 57-year-old gentleman with underlying history of hypertension, diabetes mellitus with neuropathy and nephropathy, cocaine abuse hospitalized on 04/18/2023 with worsening edema and dyspnea secondary to nephrotic syndrome. Patient has been treated on telemetry weaver with diuretic drip, however secondary to worsening dyspnea and hypoxia with no effective diuresis transferred to intensive care unit for close monitoring. Patient diuresed approximately 3.5 L overnight on Bumex drip with improvement in his FiO2 requirements and symptoms. Critical Care Time (minutes): 0 Physical Exam Vital Signs: Vital Signs: Last Vital Signs Temp 98.0 F 04/23/23 07:00 Pulse 85 04/23/23 09:55 Resp 15 04/23/23 09:55 BP 139/67 04/23/23 09:55 Pulse Ox 92 04/23/23 09:55 O2 Del Method High Flow Nasal C annula 04/23/23 09:55 O2 Flow Rate 30 04/23/23 09:55 FiO2 40 04/23/23 09:55 BMI result Body Mass Index 28.5 Const: General: no acute distress, alert and awake Eyes: Sclerae: sclerae normal EOM: EOMs intact bilaterally Neck: Neck: Yes no lymphadenopathy, Yes trachea midline and Yes supple Resp: Effort & Inspection: normal respiratory effort and no respiratory distress Auscultation: crackles ( diffuse bilateral) Cardio: Rate: regular rate Rhythm: regular rhythm Heart sounds: no gallops, no murmurs and no rubs GI: Palpation (GI): Soft to palpation and Other GI palpation findings present ( Nontender) Auscultation: normal bowel sounds Extrem: General: No clubbing, No cyanosis and Yes edema ( 2+ bilateral) Objective Data Labs 04/23/23 05:59 04/23/23 05:59 Labs: Laboratory Results - last 24 hr 04/19/23 04/22/23 04/22/23 09:22 11:10 11:10 WBC RBC Hgb Hct MCV MCH MCHC RDW Plt Count MPV Immature Gran % (Auto) Neut % (Auto) Lymph % (Auto) [place] % (Auto) Eos % (Auto) Baso % (Auto) Lymph # (Auto) [place] # (Auto) Eos # (Auto) Baso # (Auto) Abs Immat Gran (auto) Absolute Neuts (auto) Absolute Nucleated RBC Nucleated RBC % (auto) VBG pH VBG pCO2 VBG pO2 VBG HCO3 VBG O2 Saturation VBG Base Excess Sodium Potassium Chloride Carbon Dioxide Anion Gap BUN Creatinine Estim Creat Clear Calc Estimated GFR POC Glucose Random Glucose Calcium Phosphorus Magnesium Troponin I High Sens 25.4 D B-Natriuretic Peptide 1658 H Albumin Urine Hemoglobin Nasal Screen MRSA (PCR) Nasal S. aureus Screen Nasal MRSA/S.aureus Interp Blood Type A Positive Antibody Screen NEGATIVE Crossmatch See Detail Clerical Work Check Hemolysis Bld Bag Check Icterus Blood Bag Check Pre-Trans Blood Type Post-Trans Blood Type Post-Trans DEEPAK Poly Post-Trans Add Testing Post-Tx Rxn DEEPAK Result Pathologist Comment [facility] 04/22/23 04/22/23 04/22/23 11:31 13:09 15:45 WBC RBC Hgb Hct MCV MCH MCHC RDW Plt Count MPV Immature Gran % (Auto) Neut % (Auto) Lymph % (Auto) [place] % (Auto) Eos % (Auto) Baso % (Auto) Lymph # (Auto) [place] # (Auto) Eos # (Auto) Baso # (Auto) Abs Immat Gran (auto) Absolute Neuts (auto) Absolute Nucleated RBC Nucleated RBC % (auto) VBG pH VBG pCO2 VBG pO2 VBG HCO3 VBG O2 Saturation VBG Base Excess Sodium Potassium Chloride Carbon Dioxide Anion Gap BUN Creatinine Estim Creat Clear Calc Estimated GFR POC Glucose 98 Random Glucose Calcium Phosphorus Magnesium Troponin I High Sens B-Natriuretic Peptide Albumin Urine Hemoglobin Nasal Screen MRSA (PCR) Nasal S. aureus Screen Nasal MRSA/S.aureus Interp Blood Type A Positive Antibody Screen NEGATIVE Crossmatch See Detail Clerical Work Check No Error Found Hemolysis Bld Bag Check None in Pre and Post Icterus Blood Bag Check None in Pre and Post Pre-Trans Blood Type A POSITIVE Post-Trans Blood Type A Positive Post-Trans DEEPAK Poly NEGATIVE Post-Trans Add Testing No Post-Tx Rxn DEEPAK Result TNP Pathologist Comment [facility] 04/22/23 04/22/23 04/22/23 15:45 16:51 18:04 WBC RBC Hgb Hct MCV MCH MCHC RDW Plt Count MPV Immature Gran % (Auto) Neut % (Auto) Lymph % (Auto) [place] % (Auto) Eos % (Auto) Baso % (Auto) Lymph # (Auto) [place] # (Auto) Eos # (Auto) Baso # (Auto) Abs Immat Gran (auto) Absolute Neuts (auto) Absolute Nucleated RBC Nucleated RBC % (auto) VBG pH VBG pCO2 VBG pO2 VBG HCO3 VBG O2 Saturation VBG Base Excess Sodium 137 Potassium 4.3 Chloride 100 Carbon Dioxide 25 Anion Gap 16 BUN 63 H Creatinine 2.86 H Estim Creat Clear Calc 25.5 Estimated GFR 23 POC Glucose 104 119 H Random Glucose 108 Calcium 8.5 Phosphorus 6.3 H Magnesium 2.1 Troponin I High Sens B-Natriuretic Peptide Albumin 4.1 Urine Hemoglobin Nasal Screen MRSA (PCR) Nasal S. aureus Screen Nasal MRSA/S.aureus Interp Blood Type Antibody Screen Crossmatch Clerical Work Check Hemolysis Bld Bag Check Icterus Blood Bag Check Pre-Trans Blood Type Post-Trans Blood Type Post-Trans DEEPAK Poly Post-Trans Add Testing Post-Tx Rxn DEEPAK Result Pathologist Comment [facility] 04/22/23 04/22/23 04/22/23 18:05 20:33 20:45 WBC 12.7 H RBC 2.61 L Hgb 7.2 L Hct 23.4 L MCV 89.7 MCH 27.6 MCHC 30.8 L RDW 17.1 H Plt Count 250 MPV 10.5 Immature Gran % (Auto) 0.4 Neut % (Auto) 83.9 H Lymph % (Auto) 7.5 L [place] % (Auto) 7.7 Eos % (Auto) 0.2 Baso % (Auto) 0.3 Lymph # (Auto) 1.0 L [place] # (Auto) 1.0 Eos # (Auto) 0.0 Baso # (Auto) 0.0 Abs Immat Gran (auto) 0.05 H Absolute Neuts (auto) 10.6 H Absolute Nucleated RBC 0.000 Nucleated RBC % (auto) 0.0 VBG pH 7.34 VBG pCO2 54 VBG pO2 45 VBG HCO3 29 H VBG O2 Saturation 70.0 VBG Base Excess 3.5 Sodium Potassium Chloride Carbon Dioxide Anion Gap BUN Creatinine Estim Creat Clear Calc Estimated GFR POC Glucose 148 H Random Glucose Calcium Phosphorus Magnesium Troponin I High Sens B-Natriuretic Peptide Albumin Urine Hemoglobin Nasal Screen MRSA (PCR) Nasal S. aureus Screen Nasal MRSA/S.aureus Interp Blood Type Antibody Screen Crossmatch Clerical Work Check Hemolysis Bld Bag Check Icterus Blood Bag Check Pre-Trans Blood Type Post-Trans Blood Type Post-Trans DEEPAK Poly Post-Trans Add Testing Post-Tx Rxn DEEPAK Result Pathologist Comment [facility] 04/22/23 04/22/23 04/23/23 23:40 Unknown 05:55 WBC RBC Hgb Hct MCV MCH MCHC RDW Plt Count MPV Immature Gran % (Auto) Neut % (Auto) Lymph % (Auto) [place] % (Auto) Eos % (Auto) Baso % (Auto) Lymph # (Auto) [place] # (Auto) Eos # (Auto) Baso # (Auto) Abs Immat Gran (auto) Absolute Neuts (auto) Absolute Nucleated RBC Nucleated RBC % (auto) VBG pH 7.47 H VBG pCO2 43 VBG pO2 28 VBG HCO3 32 H VBG O2 Saturation 40.0 VBG Base Excess 8.1 Sodium Potassium Chloride Carbon Dioxide Anion Gap BUN Creatinine Estim Creat Clear Calc Estimated GFR POC Glucose Random Glucose Calcium Phosphorus Magnesium Troponin I High Sens B-Natriuretic Peptide Albumin Urine Hemoglobin Large (3+) H Nasal Screen MRSA (PCR) NEGATIVE Nasal S. aureus Screen POSITIVE A Nasal MRSA/S.aureus Interp SEE NOTE Blood Type Antibody Screen Crossmatch Clerical Work Check Hemolysis Bld Bag Check Icterus Blood Bag Check Pre-Trans Blood Type Post-Trans Blood Type Post-Trans DEEPAK Poly Post-Trans Add Testing Post-Tx Rxn DEEPAK Result Pathologist Comment [facility] 04/23/23 04/23/23 04/23/23 05:59 05:59 07:27 WBC 12.2 H RBC 3.04 L Hgb 8.3 L Hct 27.2 L MCV 89.5 MCH 27.3 MCHC 30.5 L RDW 17.1 H Plt Count 251 MPV 10.4 Immature Gran % (Auto) 0.4 Neut % (Auto) 81.5 H Lymph % (Auto) 10.0 L [place] % (Auto) 7.4 Eos % (Auto) 0.2 Baso % (Auto) 0.5 Lymph # (Auto) 1.2 [place] # (Auto) 0.9 Eos # (Auto) 0.0 Baso # (Auto) 0.1 Abs Immat Gran (auto) 0.05 H Absolute Neuts (auto) 10.0 H Absolute Nucleated RBC 0.000 Nucleated RBC % (auto) 0.0 VBG pH VBG pCO2 VBG pO2 VBG HCO3 VBG O2 Saturation VBG Base Excess Sodium 139 Potassium 4.1 Chloride 98 Carbon Dioxide 26 Anion Gap 19 BUN 70 H Creatinine 3.02 H Estim Creat Clear Calc 24.7 Estimated GFR 22 POC Glucose 135 H Random Glucose 164 H Calcium 8.8 Phosphorus 6.8 H Magnesium 2.1 Troponin I High Sens B-Natriuretic Peptide Albumin 4.3 Urine Hemoglobin Nasal Screen MRSA (PCR) Nasal S. aureus Screen Nasal MRSA/S.aureus Interp Blood Type Antibody Screen Crossmatch Clerical Work Check Hemolysis Bld Bag Check Icterus Blood Bag Check Pre-Trans Blood Type Post-Trans Blood Type Post-Trans DEEPAK Poly Post-Trans Add Testing Post-Tx Rxn DEEPAK Result Pathologist Comment [facility] Microbiology Microbiology Results: Microbiology 04/22/23 06:22 Blood - Venous Blood Culture - Preliminary No growth after 24 hours. 04/22/23 06:22 Blood - Venous Blood Culture - Preliminary No growth after 24 hours. Progress Note: A&P Assessment and plan (1) Acute kidney failure: Status: Acute (2) Anasarca: Status: Acute (3) Nephrotic syndrome: Status: Acute Plan Assessment: 57-year-old gentleman with nephrotic syndrome and fluid retention resulting in acute hypoxia now improving significantly on Bumex drip Plan: Neuro: No acute issues. Cardiac: acute on chronic congestive heart failure improving on Bumex. Cardiology service care appreciated. Pulmonary: acute hypoxic respiratory failure secondary to pulmonary edema, improving with diuresis. Continue to titrate off supplemental oxygen as tolerated. Renal: Acute renal failure on the background of diabetic nephropathy with nephrotic syndrome and fluid retention. Nephrology service care appreciated. Urine output improving on Bumex drip. Continue to monitor renal indices and urine output. Endo: No acute issues. GI: No acute issues. ID: No evidence of pneumonia at this time. Infectious Disease service care appreciated. Heme/Onc: No acute issues. Subacute dilutional anemia/anemia of chronic disease. Continue to monitor hemoglobin level. Psych: No acute issues. Miscellaneous: No acute issues. Prophylaxis: Lovenox Diet: diabetic At this time patient is stable for transfer to telemetry weaver. Transfer discussed with Dr. Rubi. Quality Stroke Does the patient have a stroke diagnosis?: No VTE Prior VTE?: No VTE Risk Level:: Medical - moderate - high VTE Device Contraindication: Treatment Not Indicated VTE Drug Contraindication: N/A - Med Ordered
[2023-04-23 12:06] LABS: Glucose, Whole Blood 184 mg/dL (60-115)
[2023-04-23 12:56] LABS: Anion Gap 19 (12-20); Blood Urea Nitrogen 68 mg/dL (9-16); Calcium 8.7 mg/dL (8.4-10.2); Carbon Dioxide 28 mmol/L (22-29); Chloride 97 mmol/L (96-108); Creatinine Clr Calc Pharmacy 25.5; Estimated Glomerular Filt Rate 22; Glucose Random 193 mg/dL (60-115); Potassium 3.8 mmol/L (3.3-5.1); Sodium 140 mmol/L (135-145)
--- NOTE | 2023-04-23 13:15 | PM.EVENT ---
Event Note Date of Service: 04/23/23 Event Note: Patient seen and examined: Patient initially admitted for possible anasarca, nephrotic syndrome- went to ICU for acute hypoxemic respiratory failure respiratory failure-multifactorial Plantar seen : Seems more awake, less short of breath . Says shortness of breath improving, denies any chest pain or any new complaints Physical exam: see icu documentation assessment and plan:acute hypoxemic respiratory failure multifactorial( nephroltic synd,?chf -etiology unclear,uri -parainfluz,entero/rhino) worsening dyspnea and hypoxia with no effective diuresis? transferred to intensive care unit for close monitoring.? Patient diuresed approximately 3.5 L overnight on Bumex drip with improvement in his FiO2 requirements and symptoms. currently on high flow 40%/30 liter npehrotic syndrome -renal function worsening slowly, creatinine today's 2.93 anemia : h/h improving : 8.3/27.2,yesterday also transfusion reaction labs sent. Time Spent With Patient Time: Total time managing care of this patient today ____ minutes.
[2023-04-23 13:56] LABS: Glucose, Whole Blood 200 mg/dL (60-115)
[2023-04-23 16:23] LABS: Glucose, Whole Blood 245 mg/dL (60-115)
--- NOTE | 2023-04-23 16:38 | P.PNNP_ITS ---
Subjective Subjective Date of Service: 04/23/23 Principal diagnosis: CHF Interval history: Seen and examined, events noted Physical Exam Vital Signs: Vital Signs: Last Vital Signs Temp 98.7 F 04/23/23 15:34 Pulse 68 04/23/23 15:34 Resp 18 04/23/23 15:40 BP 168/91 H 04/23/23 15:34 Pulse Ox 93 04/23/23 15:34 O2 Del Method High Flow Nasal C annula 04/23/23 15:34 O2 Flow Rate 30 04/23/23 15:34 FiO2 40 04/23/23 15:34 BMI result Body Mass Index 28.5 Const: General: no acute distress Orientation/consciousness: patient oriented x3 Eyes: EOM: EOMs intact bilaterally Neck: Neck: Yes supple Resp: Auscultation: diminished lung sounds Cardio: Rate: regular rate GI: Palpation (GI): Soft to palpation Neuro: General: patient oriented x3 and moves all extremities Extrem: Other: Edematous Objective Data Labs 04/23/23 05:59 04/23/23 12:11 Labs: Laboratory Results - last 24 hr 04/22/23 04/22/23 04/22/23 15:45 16:51 18:04 WBC RBC Hgb Hct MCV MCH MCHC RDW Plt Count MPV Immature Gran % (Auto) Neut % (Auto) Lymph % (Auto) [place] % (Auto) Eos % (Auto) Baso % (Auto) Lymph # (Auto) [place] # (Auto) Eos # (Auto) Baso # (Auto) Abs Immat Gran (auto) Absolute Neuts (auto) Absolute Nucleated RBC Nucleated RBC % (auto) VBG pH VBG pCO2 VBG pO2 VBG HCO3 VBG O2 Saturation VBG Base Excess Sodium 137 Potassium 4.3 Chloride 100 Carbon Dioxide 25 Anion Gap 16 BUN 63 H Creatinine 2.86 H Estim Creat Clear Calc 25.5 Estimated GFR 23 POC Glucose 119 H Random Glucose 108 Calcium 8.5 Phosphorus 6.3 H Magnesium 2.1 Albumin 4.1 Nasal Screen MRSA (PCR) Nasal S. aureus Screen Nasal MRSA/S.aureus Interp Post-Trans Add Testing No Pathologist Comment [facility]K SN 04/22/23 04/22/23 04/22/23 18:05 20:33 20:45 WBC 12.7 H RBC 2.61 L Hgb 7.2 L Hct 23.4 L MCV 89.7 MCH 27.6 MCHC 30.8 L RDW 17.1 H Plt Count 250 MPV 10.5 Immature Gran % (Auto) 0.4 Neut % (Auto) 83.9 H Lymph % (Auto) 7.5 L [place] % (Auto) 7.7 Eos % (Auto) 0.2 Baso % (Auto) 0.3 Lymph # (Auto) 1.0 L [place] # (Auto) 1.0 Eos # (Auto) 0.0 Baso # (Auto) 0.0 Abs Immat Gran (auto) 0.05 H Absolute Neuts (auto) 10.6 H Absolute Nucleated RBC 0.000 Nucleated RBC % (auto) 0.0 VBG pH 7.34 VBG pCO2 54 VBG pO2 45 VBG HCO3 29 H VBG O2 Saturation 70.0 VBG Base Excess 3.5 Sodium Potassium Chloride Carbon Dioxide Anion Gap BUN Creatinine Estim Creat Clear Calc Estimated GFR POC Glucose 148 H Random Glucose Calcium Phosphorus Magnesium Albumin Nasal Screen MRSA (PCR) Nasal S. aureus Screen Nasal MRSA/S.aureus Interp Post-Trans Add Testing Pathologist Comment BBK 04/22/23 04/23/23 04/23/23 23:40 05:55 05:59 WBC 12.2 H RBC 3.04 L Hgb 8.3 L Hct 27.2 L MCV 89.5 MCH 27.3 MCHC 30.5 L RDW 17.1 H Plt Count 251 MPV 10.4 Immature Gran % (Auto) 0.4 Neut % (Auto) 81.5 H Lymph % (Auto) 10.0 L [place] % (Auto) 7.4 Eos % (Auto) 0.2 Baso % (Auto) 0.5 Lymph # (Auto) 1.2 [place] # (Auto) 0.9 Eos # (Auto) 0.0 Baso # (Auto) 0.1 Abs Immat Gran (auto) 0.05 H Absolute Neuts (auto) 10.0 H Absolute Nucleated RBC 0.000 Nucleated RBC % (auto) 0.0 VBG pH 7.47 H VBG pCO2 43 VBG pO2 28 VBG HCO3 32 H VBG O2 Saturation 40.0 VBG Base Excess 8.1 Sodium Potassium Chloride Carbon Dioxide Anion Gap BUN Creatinine Estim Creat Clear Calc Estimated GFR POC Glucose Random Glucose Calcium Phosphorus Magnesium Albumin Nasal Screen MRSA (PCR) NEGATIVE Nasal S. aureus Screen POSITIVE A Nasal MRSA/S.aureus Interp SEE NOTE Post-Trans Add Testing Pathologist Comment [facility] 04/23/23 04/23/23 04/23/23 05:59 07:27 12:02 WBC RBC Hgb Hct MCV MCH MCHC RDW Plt Count MPV Immature Gran % (Auto) Neut % (Auto) Lymph % (Auto) [place] % (Auto) Eos % (Auto) Baso % (Auto) Lymph # (Auto) [place] # (Auto) Eos # (Auto) Baso # (Auto) Abs Immat Gran (auto) Absolute Neuts (auto) Absolute Nucleated RBC Nucleated RBC % (auto) VBG pH VBG pCO2 VBG pO2 VBG HCO3 VBG O2 Saturation VBG Base Excess Sodium 139 Potassium 4.1 Chloride 98 Carbon Dioxide 26 Anion Gap 19 BUN 70 H Creatinine 3.02 H Estim Creat Clear Calc 24.7 Estimated GFR 22 POC Glucose 135 H 184 H Random Glucose 164 H Calcium 8.8 Phosphorus 6.8 H Magnesium 2.1 Albumin 4.3 Nasal Screen MRSA (PCR) Nasal S. aureus Screen Nasal MRSA/S.aureus Interp Post-Trans Add Testing Pathologist Comment [facility] 04/23/23 04/23/23 04/23/23 12:11 13:52 15:31 WBC RBC Hgb Hct MCV MCH MCHC RDW Plt Count MPV Immature Gran % (Auto) Neut % (Auto) Lymph % (Auto) [place] % (Auto) Eos % (Auto) Baso % (Auto) Lymph # (Auto) [place] # (Auto) Eos # (Auto) Baso # (Auto) Abs Immat Gran (auto) Absolute Neuts (auto) Absolute Nucleated RBC Nucleated RBC % (auto) VBG pH VBG pCO2 VBG pO2 VBG HCO3 VBG O2 Saturation VBG Base Excess Sodium 140 Potassium 3.8 Chloride 97 Carbon Dioxide 28 Anion Gap 19 BUN 68 H Creatinine 2.93 H Estim Creat Clear Calc 25.5 Estimated GFR 22 POC Glucose 200 H 245 H Random Glucose 193 H Calcium 8.7 Phosphorus Magnesium 2.0 Albumin Nasal Screen MRSA (PCR) Nasal S. aureus Screen Nasal MRSA/S.aureus Interp Post-Trans Add Testing Pathologist Comment [facility] Microbiology Microbiology Results: Microbiology 04/22/23 06:22 Blood - Venous Blood Culture - Preliminary No growth after 24 hours. 04/22/23 06:22 Blood - Venous Blood Culture - Preliminary No growth after 24 hours. Procedures Date of Service Date of Service: 04/23/23 Assessment & Plan Assessment and plan (1) Acute kidney failure: Status: Acute Assessment and Plan: Non-Oligurc KWAME: multi-fact ischemic/renal hypoperfusion CKD 3: Bx proven DN/TMA Marked Fluid overload/Anasarca: diuretic resitant and now neg 2.5 L past 24 hrs on current max diuretic reginent Overall poor prognosis and focus is on diuresis even if WRF/KWAME and at some point may progress to needing dialysis REC: cont bumex drip and IV diuril and PO zaroxlyn; track UOP/renal func; IV albumin as well; check sero as ordered previusly ( CARA,ANCA etc..) Will follwow with team Time Spent With Patient Time: Total time managing care of this patient today ____ minutes. Progress Note: Quality Stroke Does the patient have a stroke diagnosis?: No
[2023-04-23] MEDS: Insulin Lispro 100 UNIT/ML 3 ML VIAL SUBCUT ×2 (17:17→21:38)
[2023-04-23 20:45] LABS: Glucose, Whole Blood 245 mg/dL (60-115)
[2023-04-23] MEDS: Insulin Glargine,Hum.rec.anlog 100 UNIT/ML 10 ML VIAL 20 UNIT SUBCUT (21:37)
[2023-04-23] MEDS: cefTRIAXone sodium 2 GM in 0.9 % Sodium Chloride 50 ML IV (21:39)
[2023-04-24] VITALS (8 sets, daily range): BP systolic 144–177; BP diastolic 68–87; PULSE 68–86; RESP 18–20; TEMP 36.2–37.4; O2SAT 92–100
[2023-04-24] MEDS: Acetaminophen 325 MG TABLET 650 MG PO ×2 (04:30→21:40)
[2023-04-24] MEDS: Pantoprazole Sodium 40 MG/10 ML VIAL IVPUSH (05:04)
[2023-04-24 06:18] LABS: MANUAL DIFF FLAG NO
[2023-04-24 06:21] LABS: VBG Base Excess 12.8 mmol/L; VBG HCO3 36 mmol/L (22-26); VBG pCO2 45 mmHg; VBG pH 7.51 (7.32-7.43); VBG pO2 97 mmHg
[2023-04-24 06:21] LABS: Venous Blood Gas Refer to POC result
[2023-04-24 06:22] LABS: Basophils Percent Auto 0.5 % (0-2); Eosinophils Absolute Auto 0.2 X10*3/uL (0.0-0.4); Eosinophils Percent Auto 2.4 % (0-4); Hematocrit 24.9 % (42.0-52.0); Hemoglobin 7.9 g/dl (14.0-18.0); Imm Gran Abs Auto 0.03 X10*3/uL (0.00-0.03); Imm Gran Pct Auto 0.5 % (0.0-0.4); Lymphocytes Percent Auto 15.9 % (20-40); Mean Corpuscular HGB Conc 31.7 g/dl (31.0-36.0); Mean Corpuscular Hemoglobin 26.9 pg (27.0-33.0); Mean Corpuscular Volume 84.7 fL (80.0-98.0); Mean Platelet Volume 10.1 fL (9.4-12.4); Monocytes Absolute Auto 0.8 X10*3/uL (0.1-1.2); Monocytes Percent Auto 12.8 % (2-11); Neutrophils Absolute Auto 4.3 x10*3/uL (2.0-8.3); Neutrophils Percent Auto 67.9 % (45-73); Platelet Count 259 X10*3/uL (160-400); Red Blood Count 2.94 X10*6/uL (4.60-5.80); Red Cell Distribution Width 16.4 % (11.0-16.0); White Blood Count 6.3 X10*3/uL (4.8-10.8)
[2023-04-24 06:41] LABS: Albumin Level 3.4 g/dL (3.5-5.0); Anion Gap 16 (12-20); Blood Urea Nitrogen 75 mg/dL (9-16); Calcium 8.6 mg/dL (8.4-10.2); Carbon Dioxide 30 mmol/L (22-29); Chloride 96 mmol/L (96-108); Estimated Glomerular Filt Rate 24; Glucose Random 193 mg/dL (60-115); Magnesium 1.9 mg/dL (1.6-2.6); Phosphorus 5.2 mg/dL (2.7-4.5); Potassium 3.2 mmol/L (3.3-5.1); Sodium 139 mmol/L (135-145)
[2023-04-24 07:24] LABS: Glucose, Whole Blood 199 mg/dL (60-115)
[2023-04-24] MEDS: Ketorolac Tromethamine 0.5% Op 5 ML DROPS 1 DROP EYE-BOTH ×3 (07:40→20:08)
[2023-04-24] MEDS: prednisoLONE Acetate 1 % Oph Susp 5 ML DRPBTL 1 DROP EYE-BOTH ×3 (07:40→20:08)
[2023-04-24] MEDS: 0.9 % Sodium Chloride Flush 3 ML SYRINGE IVFLUSH ×3 (07:40→20:01)
[2023-04-24] MEDS: Potassium Chloride Packet 20 MEQ PACKET 40 MEQ PO (07:47)
[2023-04-24] MEDS: Magnesium Sulfate/D5W 1 GM/100 ML PIGGYBACK IV (08:02)
[2023-04-24] MEDS: metOLazone 5 MG TABLET PO (08:57)
[2023-04-24] MEDS: Albumin Human 25 % 100 ML IV ×3 (10:18→22:34)
[2023-04-24 11:18] LABS: Glucose, Whole Blood 162 mg/dL (60-115)
[2023-04-24] MEDS: Doxycycline Hyclate 100 MG in 0.9 % Sodium Chloride 250 ML 166.67 MG IV (11:57)
[2023-04-24] MEDS: Bumetanide 25 MG in Container,Empty 0 ML 4 MG IVCONT (12:09)
--- NOTE | 2023-04-24 12:14 | PM.PNCARD ---
Subjective Subjective Date of Service: 04/24/23 Principal diagnosis: CHF Interval history: Patient is doing a lot better. Creatinine is slightly improved. Has been diuresing well with negative balance of about 3500 cc. Cumulative negative balance of about 7 L. respiratory status has significantly improved. Patient alert and awake. Denies any cardiac symptoms. Review of Systems Constitutional: Reports no additional constitutional complaints Eyes: Reports no additional eye complaints Cardiovascular: Reports Abdominal Distension (Improving), Reports leg edema (Improving) and Reports dyspnea (Improving) Respiratory: Reports dyspnea (Improving) Gastrointestinal: Reports no additional gastrointestinal complaints Reports system reviewed and no additional complaints, except as documented Psychiatric: Reports no additional psychiatric complaints Physical Exam Vital Signs: Last Vital Signs Temp 97.2 F 04/24/23 11:12 Pulse 68 04/24/23 11:12 Resp 20 04/24/23 11:12 BP 174/86 H 04/24/23 11:12 Pulse Ox 100 04/24/23 11:12 O2 Del Method Nasal Cannula 04/24/23 11:12 O2 Flow Rate 4 04/24/23 11:12 FiO2 40 04/24/23 03:25 BMI result Body Mass Index 28.5 Const General: cooperative, alert, awake and in distress moderate and respiratory Nutritional Appearance: average body habitus Orientation/consciousness: patient oriented x3 Neck Neck: Yes trachea midline, Yes supple and Yes JVD Resp Effort & Inspection: normal respiratory effort Auscultation: clear to auscultation bilaterally and diminished lung sounds Cardio Jugular venous distension: JVD Rate: regular rate Rhythm: regular rhythm Heart sounds: S1 normal heart sound present, S2 normal heart sound present, no click, no gallops, no murmurs and no rubs GI Auscultation: normal bowel sounds Neuro General: patient oriented x3 and no focal motor deficits Extrem General: No clubbing, No cyanosis and Yes edema Objective Labs and Meds 04/24/23 06:11 04/24/23 06:11 Lab results: Laboratory Results - last 24 hr 04/23/23 04/23/23 04/23/23 12:11 13:52 15:31 WBC RBC Hgb Hct MCV MCH MCHC RDW Plt Count MPV Immature Gran % (Auto) Neut % (Auto) Lymph % (Auto) [place] % (Auto) Eos % (Auto) Baso % (Auto) Lymph # (Auto) [place] # (Auto) Eos # (Auto) Baso # (Auto) Abs Immat Gran (auto) Absolute Neuts (auto) Absolute Nucleated RBC Nucleated RBC % (auto) VBG pH VBG pCO2 VBG pO2 VBG HCO3 VBG O2 Saturation VBG Base Excess Sodium 140 Potassium 3.8 Chloride 97 Carbon Dioxide 28 Anion Gap 19 BUN 68 H Creatinine 2.93 H Estim Creat Clear Calc 25.5 Estimated GFR 22 POC Glucose 200 H 245 H Random Glucose 193 H Calcium 8.7 Phosphorus Magnesium 2.0 Albumin 04/23/23 04/24/23 04/24/23 20:30 06:11 06:11 WBC 6.3 RBC 2.94 L Hgb 7.9 L Hct 24.9 L MCV 84.7 MCH 26.9 L MCHC 31.7 RDW 16.4 H Plt Count 259 MPV 10.1 Immature Gran % (Auto) 0.5 H Neut % (Auto) 67.9 Lymph % (Auto) 15.9 L [place] % (Auto) 12.8 H Eos % (Auto) 2.4 Baso % (Auto) 0.5 Lymph # (Auto) 1.0 L [place] # (Auto) 0.8 Eos # (Auto) 0.2 Baso # (Auto) 0.0 Abs Immat Gran (auto) 0.03 Absolute Neuts (auto) 4.3 Absolute Nucleated RBC 0.000 Nucleated RBC % (auto) 0.0 VBG pH VBG pCO2 VBG pO2 VBG HCO3 VBG O2 Saturation VBG Base Excess Sodium 139 Potassium 3.2 L Chloride 96 Carbon Dioxide 30 H Anion Gap 16 BUN 75 H Creatinine 2.77 H Estim Creat Clear Calc 27.0 Estimated GFR 24 POC Glucose 245 H Random Glucose 193 H Calcium 8.6 Phosphorus 5.2 H Magnesium 1.9 Albumin 3.4 L 04/24/23 04/24/23 04/24/23 06:13 07:15 11:11 WBC RBC Hgb Hct MCV MCH MCHC RDW Plt Count MPV Immature Gran % (Auto) Neut % (Auto) Lymph % (Auto) [place] % (Auto) Eos % (Auto) Baso % (Auto) Lymph # (Auto) [place] # (Auto) Eos # (Auto) Baso # (Auto) Abs Immat Gran (auto) Absolute Neuts (auto) Absolute Nucleated RBC Nucleated RBC % (auto) VBG pH 7.51 H VBG pCO2 45 VBG pO2 97 VBG HCO3 36 H VBG O2 Saturation 99.0 VBG Base Excess 12.8 Sodium Potassium Chloride Carbon Dioxide Anion Gap BUN Creatinine Estim Creat Clear Calc Estimated GFR POC Glucose 199 H 162 H Random Glucose Calcium Phosphorus Magnesium Albumin Progress Note: A&P Assessment and plan (1) Decompensated heart failure: Status: Acute Assessment and Plan: Patient with decompensated heart failure with preserved LV systolic function with advanced diastolic dysfunction. Diastolic function advanced the last few months. Concerning for infiltrative disorder. Clinically much improved. Continue aggressive diuresis as still appears to be fluid overloaded. Continue to trend BMP and BNP. Blood pressure is elevated and consider adding hydralazine 25 mg b.i.d.. Suspicion for cardiac amyloidosis, genetic ATTR type. With suggested PYP scan to assess for the same. Management was discussed with the patient patient's family at bedside. They understand agree. Overall prognosis still seems guarded. Will continue to follow with you Time Spent With Patient Time: Total time managing care of this patient today ____ minutes. Progress Note: Quality Stroke Does the patient have a stroke diagnosis?: No Procedures Date of Service Date of Service: 04/24/23
--- NOTE | 2023-04-24 13:33 | P.PNIM_ITS ---
Subjective Subjective Date of Service: 04/24/23 Interval History: Anasarca, nephrotic syndrome, acute hypoxemic respiratory failure. Review of Systems Shortness of breath seems to be improving, oxygen demand improving now on 4 L nasal cannula i/o -5 L Has mild cough otherwise no fever or chills Denies any chest pain Physical Exam Vital Signs: Vital Signs: Last Vital Signs Temp 97.2 F 04/24/23 11:12 Pulse 68 04/24/23 11:12 Resp 20 04/24/23 11:12 BP 174/86 H 04/24/23 11:12 Pulse Ox 100 04/24/23 11:12 O2 Del Method Nasal Cannula 04/24/23 11:12 O2 Flow Rate 4 04/24/23 11:12 FiO2 40 04/24/23 03:25 BMI result Body Mass Index 28.5 Appearance: Alert.? Oriented X3.?sob seems improving cvs: rrr, [id number]. res: air entry seems fair,slightly diminshed at bases ,no rales abd: no rebound or guarding ,nt, bs present. ext pulses present , no cyanosis,has edema neuro: axo3 , nonfocal. Objective Data Active Medications Acetaminophen (Acetaminophen 325 Mg Tablet) 650 mg PO Q6H PRN PRN Reason: Pain, Mild (Pain Scale 1-3) Last Admin: 04/24/23 04:30 Dose: 650 mg Documented By: EVELYN Albuterol Sulfate (Albuterol Sulfate (0.083%) 2.5 Mg/3 Ml Vial.Neb) 2.5 mg INHALE Q4H PRN PRN Reason: Wheezing Last Admin: 04/22/23 20:23 Dose: 2.5 mg Documented By: NATHALIE Benzocaine (Throat Lozenge, Medicated Lozenge) 1 lozenge MUCOUS MEM Q2H PRN PRN Reason: Sore Throat Glucose (Glucose Gel 15 Gm Gel..Gram.) 15 gm PO Q15M PRN; Protocol PRN Reason: per Hypoglycemia Standing Ord. Hydralazine HCl (Hydralazine Hcl 25 Mg Tablet) 25 mg PO BID BRENNEN; Protocol Dextrose (D10) 250 mls @ 750 mls/hr IV Q15M PRN; Protocol PRN Reason: per Hypoglycemia Standing Ord. Last Infusion: 04/22/23 09:50 Dose: 0 mls/hr Documented By: JAVIER Dextrose (D10) 250 mls @ 750 mls/hr IV Q15M PRN; Protocol PRN Reason: per Hypoglycemia Standing Ord. Bumetanide 25 mg/ IV (Miscellaneous Supplies) 100 mls @ 4 mls/hr IVCONT .Q24H [facility] Last Admin: 04/24/23 12:09 Dose: 1 mg/hr, 4 mls/hr Documented By: NAEL Doxycycline Hyclate 100 mg/ (Sodium Chloride) 250 mls @ 166.67 mls/hr IV Q12H [facility] Last Admin: 04/24/23 11:57 Dose: 166.67 mls/hr Documented By: NAEL Ceftriaxone Sodium 2 gm/ (Sodium Chloride) 50 mls @ 100 mls/hr IV Q24H [facility] Last Infusion: 04/23/23 22:28 Dose: 0 mls/hr Documented By: EVELYN Albumin Human (Kedbumin 25 %) 100 mls @ 100 mls/hr IV Q6H [facility] Stop: 04/25/23 02:44 Last Infusion: 04/24/23 11:59 Dose: 0 mls/hr Documented By: NAEL Insulin Glargine (Insulin Glargine,Hum.Rec.Anlog 100 Unit/Ml 10 Ml Vial) 20 unit SUBCUT BEDTIME [facility] Last Admin: 04/23/23 21:37 Dose: 20 unit Documented By: EVELYN Insulin Human Lispro (Insulin Lispro 100 Unit/Ml 3 Ml Vial) 0 unit SUBCUT QIDACHS [facility]; Protocol Last Admin: 04/24/23 13:00 Dose: Not Given Documented By: NAEL Non-Admin Reason: No Insulin Coverage Ketorolac Tromethamine (Ketorolac Tromethamine 0.5% Op 5 Ml Drops) 1 drop EYE- BOTH TID [facility] Last Admin: 04/24/23 07:40 Dose: 1 drop Documented By: NAEL Ondansetron HCl (Ondansetron Hcl 4 Mg/2 Ml Vial) 4 mg IVPUSH Q8H PRN PRN Reason: Nausea and Vomiting Pantoprazole Sodium (Pantoprazole Sodium 40 Mg/10 Ml Vial) 40 mg IVPUSH DAILY@0630 [facility] Last Admin: 04/24/23 05:04 Dose: 40 mg Documented By: EVELYN Pharmacy Consult (Consult Rx Perform Med Rec) 1 each MISCELLANE ONCE PRN PRN Reason: Consult order Prednisolone Acetate (Prednisolone Acetate 1 % Oph Susp 5 Ml Drpbtl) 1 drop EYE-BOTH TID [facility] Last Admin: 04/24/23 07:40 Dose: 1 drop Documented By: NAEL Sodium Chloride (0.9 % Sodium Chloride Flush 3 Ml Syringe) 3 ml IVFLUSH QSHIFT [facility] Last Admin: 04/24/23 07:40 Dose: 3 ml Documented By: NAEL Labs 04/24/23 06:11 04/24/23 06:11 Labs: Laboratory Results - last 24 hr 04/23/23 04/23/23 04/23/23 13:52 15:31 20:30 MCV MCH MCHC RDW Plt Count MPV Immature Gran % (Auto) Neut % (Auto) Lymph % (Auto) [place] % (Auto) Eos % (Auto) Baso % (Auto) Lymph # (Auto) [place] # (Auto) Eos # (Auto) Baso # (Auto) Abs Immat Gran (auto) Absolute Neuts (auto) Absolute Nucleated RBC Nucleated RBC % (auto) VBG pH VBG pCO2 VBG pO2 VBG HCO3 VBG O2 Saturation VBG Base Excess Anion Gap Estim Creat Clear Calc Estimated GFR POC Glucose 200 H 245 H 245 H Random Glucose Calcium Phosphorus Magnesium Albumin 04/24/23 04/24/23 04/24/23 06:11 06:11 06:13 MCV 84.7 MCH 26.9 L MCHC 31.7 RDW 16.4 H Plt Count 259 MPV 10.1 Immature Gran % (Auto) 0.5 H Neut % (Auto) 67.9 Lymph % (Auto) 15.9 L [place] % (Auto) 12.8 H Eos % (Auto) 2.4 Baso % (Auto) 0.5 Lymph # (Auto) 1.0 L [place] # (Auto) 0.8 Eos # (Auto) 0.2 Baso # (Auto) 0.0 Abs Immat Gran (auto) 0.03 Absolute Neuts (auto) 4.3 Absolute Nucleated RBC 0.000 Nucleated RBC % (auto) 0.0 VBG pH 7.51 H VBG pCO2 45 VBG pO2 97 VBG HCO3 36 H VBG O2 Saturation 99.0 VBG Base Excess 12.8 Anion Gap 16 Estim Creat Clear Calc 27.0 Estimated GFR 24 POC Glucose Random Glucose 193 H Calcium 8.6 Phosphorus 5.2 H Magnesium 1.9 Albumin 3.4 L 04/24/23 04/24/23 07:15 11:11 MCV MCH MCHC RDW Plt Count MPV Immature Gran % (Auto) Neut % (Auto) Lymph % (Auto) [place] % (Auto) Eos % (Auto) Baso % (Auto) Lymph # (Auto) [place] # (Auto) Eos # (Auto) Baso # (Auto) Abs Immat Gran (auto) Absolute Neuts (auto) Absolute Nucleated RBC Nucleated RBC % (auto) VBG pH VBG pCO2 VBG pO2 VBG HCO3 VBG O2 Saturation VBG Base Excess Anion Gap Estim Creat Clear Calc Estimated GFR POC Glucose 199 H 162 H Random Glucose Calcium Phosphorus Magnesium Albumin Microbiology Microbiology Results: Microbiology 04/22/23 06:22 Blood Culture - Preliminary Blood - Venous No growth after 48 hours. 04/22/23 06:22 Blood Culture - Preliminary Blood - Venous No growth after 48 hours. Assessment and Plan (1) Pneumonia: Status: Acute (2) Decompensated heart failure: Status: Acute (3) Acute kidney failure: Status: Acute (4) Anasarca: Status: Acute (5) Nephrotic syndrome: Status: Acute Plan 57 year old male with chronic normocytic anemia, htn, hld, diabetic polyneuropathy, diabetic nephropathy, chronic pain syndrome, insulin dependent type 2 diabetes, and depression admitted for anasarca associated with nephrotic syndome. acute hypoxemic respiratory failure multifactorial Anasarca related to nephrotic syndrome (possible due to diabetic nephropathy), decompensated heart failure with preserved LV systolic function with advanced diastolic dysfunction, also ? pneumonia ( has few episode of fevers during this admission) Bx 02/10 showing diabetic nephropathy and TMA. ?CARA negative,also cocaine positive,UA with 3+ proteinuria. sob improving, now on NC 4liters sats in 90's i/o 5 liter negative , no new fevers ,strep and legionella ag pending ,blood cultures neg@48hrs Strict I&O, greco catheter for fluid management,Low sodium diet Continue IV bumex drip ,continue albumin,metolazone ,added hydralazine , on doxycycline/ceftriaxone since 04/22/23. Added PYP scan for cardiac amyloidosis evaluation. Acute kidney injury-related to above cr wosening slowly 2.7 Hypokalemia-repleted Continue diuresis,Follow BMP anemia normocytic: h/h aroun/24.9 worsening Possible anemia of chronic disease Patient denies any melena or angelo blood in the stool iron studies low iron ,tibc ,ferritin normal fobt neg in january s/p 1 prbc 2 days back, today got almost half of the blood PRBC back, needed to hold rest of prbc bag due to fever, transfusion reaction labs sent which seems to be fine -consistent with a febrile non hemolytic transfusion reaction. give tylenol before tranfusion (if needed). moniter cbc closely insulin-dependent type 2 diabetes with hyperglycemia fs 160-200 Diabetic diet hold lantus , avoid insulin coverage below 200 mg/dl HTN- suboptimal. continue coreg to 6.125 BID,added hydralazine Cocaine abuse-Utox positive Addiction med consult Hep C ab positive-Viral load seems detected DVT prophylaxis- hold lovenox due to anemia ,scd. Full code inpatient? need: Acute hypoxemic respiratory failure secondary to above- anasarca, nephrotic syndrome, possible CHF- need iv diuretic, renal function electrolyte monitoring, need cardiac workup. Time Spent With Patient Time: Total time managing care of this patient today ____ minutes. Quality Stroke Does the patient have a stroke diagnosis?: No VTE Prior VTE?: No VTE Risk Level:: Medical - moderate - high VTE Device Contraindication: Treatment Not Indicated VTE Drug Contraindication: N/A - Med Ordered
[2023-04-24 16:52] LABS: Glucose, Whole Blood 235 mg/dL (60-115)
[2023-04-24] MEDS: Insulin Lispro 100 UNIT/ML 3 ML VIAL SUBCUT ×2 (17:04→20:01)
--- NOTE | 2023-04-24 19:04 | PM.PNNEP ---
Subjective Subjective Date of Service: 04/24/23 Principal diagnosis: CHF Interval history: Seen and examined, events noted Physical Exam Vital Signs: Vital Signs: Last Vital Signs Temp 97.4 F 04/24/23 15:57 Pulse 71 04/24/23 15:57 Resp 18 04/24/23 15:57 BP 144/78 H 04/24/23 15:57 Pulse Ox 98 04/24/23 15:57 O2 Del Method High Flow Nasal C annula 04/24/23 15:57 O2 Flow Rate 3 04/24/23 15:57 FiO2 40 04/24/23 15:57 BMI result Body Mass Index 28.5 Const: General: no acute distress Orientation/consciousness: patient oriented x3 Eyes: EOM: EOMs intact bilaterally Neck: Neck: Yes supple Resp: Auscultation: diminished lung sounds Cardio: Rate: regular rate GI: Palpation (GI): Soft to palpation Neuro: General: patient oriented x3 and moves all extremities Extrem: Other: Edematous Objective Data Labs 04/24/23 06:11 04/24/23 06:11 Labs: Laboratory Results - last 24 hr 04/23/23 04/24/23 04/24/23 20:30 06:11 06:11 WBC 6.3 RBC 2.94 L Hgb 7.9 L Hct 24.9 L MCV 84.7 MCH 26.9 L MCHC 31.7 RDW 16.4 H Plt Count 259 MPV 10.1 Immature Gran % (Auto) 0.5 H Neut % (Auto) 67.9 Lymph % (Auto) 15.9 L [place] % (Auto) 12.8 H Eos % (Auto) 2.4 Baso % (Auto) 0.5 Lymph # (Auto) 1.0 L [place] # (Auto) 0.8 Eos # (Auto) 0.2 Baso # (Auto) 0.0 Abs Immat Gran (auto) 0.03 Absolute Neuts (auto) 4.3 Absolute Nucleated RBC 0.000 Nucleated RBC % (auto) 0.0 VBG pH VBG pCO2 VBG pO2 VBG HCO3 VBG O2 Saturation VBG Base Excess Sodium 139 Potassium 3.2 L Chloride 96 Carbon Dioxide 30 H Anion Gap 16 BUN 75 H Creatinine 2.77 H Estim Creat Clear Calc 27.0 Estimated GFR 24 POC Glucose 245 H Random Glucose 193 H Calcium 8.6 Phosphorus 5.2 H Magnesium 1.9 Albumin 3.4 L 04/24/23 04/24/23 04/24/23 06:13 07:15 11:11 WBC RBC Hgb Hct MCV MCH MCHC RDW Plt Count MPV Immature Gran % (Auto) Neut % (Auto) Lymph % (Auto) [place] % (Auto) Eos % (Auto) Baso % (Auto) Lymph # (Auto) [place] # (Auto) Eos # (Auto) Baso # (Auto) Abs Immat Gran (auto) Absolute Neuts (auto) Absolute Nucleated RBC Nucleated RBC % (auto) VBG pH 7.51 H VBG pCO2 45 VBG pO2 97 VBG HCO3 36 H VBG O2 Saturation 99.0 VBG Base Excess 12.8 Sodium Potassium Chloride Carbon Dioxide Anion Gap BUN Creatinine Estim Creat Clear Calc Estimated GFR POC Glucose 199 H 162 H Random Glucose Calcium Phosphorus Magnesium Albumin 04/24/23 16:48 WBC RBC Hgb Hct MCV MCH MCHC RDW Plt Count MPV Immature Gran % (Auto) Neut % (Auto) Lymph % (Auto) [place] % (Auto) Eos % (Auto) Baso % (Auto) Lymph # (Auto) [place] # (Auto) Eos # (Auto) Baso # (Auto) Abs Immat Gran (auto) Absolute Neuts (auto) Absolute Nucleated RBC Nucleated RBC % (auto) VBG pH VBG pCO2 VBG pO2 VBG HCO3 VBG O2 Saturation VBG Base Excess Sodium Potassium Chloride Carbon Dioxide Anion Gap BUN Creatinine Estim Creat Clear Calc Estimated GFR POC Glucose 235 H Random Glucose Calcium Phosphorus Magnesium Albumin Microbiology Microbiology Results: Microbiology 04/22/23 06:22 Blood - Venous Blood Culture - Preliminary No growth after 48 hours. 04/22/23 06:22 Blood - Venous Blood Culture - Preliminary No growth after 48 hours. Procedures Date of Service Date of Service: 04/24/23 Assessment & Plan Assessment and plan (1) Acute kidney failure: Status: Acute Assessment and Plan: Non-Oligurc KWAME: multi-fact ischemic/renal hypoperfusion CKD 3: Bx proven DN/TMA Marked Fluid overload/Anasarca: diuretic resitant and now neg 3.5 L past 24 hrs on current max diuretic reginent Overall poor prognosis and focus is on diuresis even if WRF/KWAME and at some point may progress to needing dialysis REC: cont bumex drip and IV diuril and PO zaroxlyn; track UOP/renal func; IV albumin as well; check sero as ordered previusly ( CARA,ANCA etc..) Will follwow with team Time Spent With Patient Time: Total time managing care of this patient today ____ minutes. Progress Note: Quality Stroke Does the patient have a stroke diagnosis?: No
[2023-04-24 19:40] LABS: Glucose, Whole Blood 260 mg/dL (60-115)
[2023-04-24] MEDS: hydrALAZINE HCl 25 MG TABLET PO (20:01)
[2023-04-24] MEDS: Insulin Glargine,Hum.rec.anlog 100 UNIT/ML 10 ML VIAL 20 UNIT SUBCUT (20:02)
[2023-04-24] MEDS: cefTRIAXone sodium 2 GM in 0.9 % Sodium Chloride 50 ML IV (22:33)
[2023-04-25] VITALS (7 sets, daily range): BP systolic 134–202; BP diastolic 69–92; PULSE 70–82; RESP 17–22; TEMP 36.1–36.7; O2SAT 97–100
[2023-04-25] MEDS: Doxycycline Hyclate 100 MG in 0.9 % Sodium Chloride 250 ML 166.67 MG IV ×2 (00:02→11:59)
[2023-04-25 04:40] LABS: ~HepC Num1 13.79 S/CO (0.00-0.79); ~Hepatitis C Antibody Reactive (Nonreactive)
[2023-04-25 04:41] LABS: HIV AB/AG Nonreactive (Nonreactive); HIV Num 1 0.07 S/CO (0.00-0.99)
[2023-04-25] MEDS: hydrALAZINE HCl 20 MG/ML VIAL 5 MG IVPUSH (04:46)
[2023-04-25] MEDS: Pantoprazole Sodium 40 MG/10 ML VIAL IVPUSH (06:31)
[2023-04-25 07:28] LABS: Glucose, Whole Blood 149 mg/dL (60-115)
[2023-04-25] MEDS: Throat Lozenge, Medicated LOZENGE 1 LOZENGE MUCOUS MEM (07:52)
[2023-04-25] MEDS: hydrALAZINE HCl 25 MG TABLET PO (07:52)
[2023-04-25] MEDS: Acetaminophen 325 MG TABLET 650 MG PO (07:53)
[2023-04-25] MEDS: Ketorolac Tromethamine 0.5% Op 5 ML DROPS 1 DROP EYE-BOTH ×3 (07:53→22:02)
[2023-04-25] MEDS: prednisoLONE Acetate 1 % Oph Susp 5 ML DRPBTL 1 DROP EYE-BOTH ×3 (07:53→22:02)
[2023-04-25] MEDS: 0.9 % Sodium Chloride Flush 3 ML SYRINGE IVFLUSH ×2 (07:59→16:03)
[2023-04-25 09:12] LABS: Anion Gap 19 (12-20); Blood Urea Nitrogen 82 mg/dL (9-16); Calcium 9.8 mg/dL (8.4-10.2); Carbon Dioxide 35 mmol/L (22-29); Chloride 89 mmol/L (96-108); Creatinine Clr Calc Pharmacy 31.3; Estimated Glomerular Filt Rate 28; Glucose Random 142 mg/dL (60-115); Potassium 3.4 mmol/L (3.3-5.1); Sodium 140 mmol/L (135-145)
[2023-04-25 11:43] LABS: Glucose, Whole Blood 327 mg/dL (60-115)
[2023-04-25] MEDS: Insulin Lispro 100 UNIT/ML 3 ML VIAL SUBCUT ×3 (11:52→21:55)
[2023-04-25] MEDS: Bumetanide 25 MG in Container,Empty 0 ML 4 MG IVCONT (12:38)
--- NOTE | 2023-04-25 13:33 | MHC.CM.PN ---
EMR reviewed and per MD rounds, pt not medically cleared for D/C due to the continued need for IV diuretics, and renal function electrolyte monitoring. CM will continue to follow.
--- NOTE | 2023-04-25 15:09 | PC.NURSE ---
Bumex ggt was paused due to pt had to go down for [place] [facility] PYP cardiac amyoloidosis. approved to temporarily paused and resume when pt comes back
[2023-04-25 16:06] LABS: Glucose, Whole Blood 272 mg/dL (60-115)
--- NOTE | 2023-04-25 16:38 | PM.PNNEP ---
Subjective Subjective Date of Service: 04/26/23 Principal diagnosis: CHF Interval history: Seen and examined, events noted Physical Exam Vital Signs: Vital Signs: Last Vital Signs Temp 97.0 F 04/25/23 15:34 Pulse 73 04/25/23 15:34 Resp 17 04/25/23 15:34 BP 177/81 H 04/25/23 15:34 Pulse Ox 99 04/25/23 15:34 O2 Del Method Nasal Cannula 04/25/23 15:34 O2 Flow Rate 4 04/25/23 11:30 FiO2 40 04/24/23 19:50 BMI result Body Mass Index 28.5 Const: General: no acute distress Orientation/consciousness: patient oriented x3 Eyes: EOM: EOMs intact bilaterally Neck: Neck: Yes supple Resp: Auscultation: diminished lung sounds Cardio: Rate: regular rate GI: Palpation (GI): Soft to palpation Neuro: General: patient oriented x3 and moves all extremities Extrem: Other: Edematous Objective Data Labs 04/24/23 06:11 04/25/23 08:07 Labs: Laboratory Results - last 24 hr 04/23/23 04/23/23 04/24/23 05:59 05:59 16:48 Sodium Potassium Chloride Carbon Dioxide Anion Gap BUN Creatinine Estim Creat Clear Calc Estimated GFR POC Glucose 235 H Random Glucose Calcium Hepatitis C Ab (EIA) Reactive H HIV 1&2 Ab/P24 Ag 4thGn Nonreactive 04/24/23 04/25/23 04/25/23 19:36 07:24 08:07 Sodium 140 Potassium 3.4 Chloride 89 L Carbon Dioxide 35 H Anion Gap 19 BUN 82 H Creatinine 2.39 H Estim Creat Clear Calc 31.3 Estimated GFR 28 POC Glucose 260 H 149 H Random Glucose 142 H Calcium 9.8 D Hepatitis C Ab (EIA) HIV 1&2 Ab/P24 Ag 4thGn 04/25/23 04/25/23 11:37 15:41 Sodium Potassium Chloride Carbon Dioxide Anion Gap BUN Creatinine Estim Creat Clear Calc Estimated GFR POC Glucose 327 H 272 H Random Glucose Calcium Hepatitis C Ab (EIA) HIV 1&2 Ab/P24 Ag 4thGn Microbiology Microbiology Results: Microbiology 04/22/23 06:22 Blood - Venous Blood Culture - Preliminary No growth after 48 hours. 04/22/23 06:22 Blood - Venous Blood Culture - Preliminary No growth after 48 hours. Procedures Date of Service Date of Service: 04/26/23 Assessment & Plan Assessment and plan (1) Acute kidney failure: Status: Acute Assessment and Plan: Non-Oligurc KWAME: multi-fact ischemic/renal hypoperfusion: despite aggressive diuresis CKD 3: Bx proven DN/TMA Marked Fluid overload/Anasarca: diuretic resitant and now neg 6 L past 24 hrs on current diuretic regiment REC: switch tfrom bumex drip to 2mg IV bumex q8 hrs and tomorrow look to swith to po toorsemide; track UOP/renal func Will follwow with team Time Spent With Patient Time: Total time managing care of this patient today ____ minutes. Progress Note: Quality Stroke Does the patient have a stroke diagnosis?: No
--- NOTE | 2023-04-25 16:52 | HO.PM.IMPN ---
Subjective Subjective Date of Service: 04/25/23 Interval History: Anasarca, nephrotic syndrome, acute hypoxemic respiratory failure,uncontrolled htn. Review of Systems Shortness of breath seems to be improving, oxygen demand improving now on 4 L nasal cannula i/o -12 L Has mild cough otherwise no fever or chills Denies any chest pain Physical Exam Vital Signs: Vital Signs: Last Vital Signs Temp 97.0 F 04/25/23 15:34 Pulse 73 04/25/23 15:34 Resp 17 04/25/23 15:34 BP 177/81 H 04/25/23 15:34 Pulse Ox 99 04/25/23 15:34 O2 Del Method Nasal Cannula 04/25/23 15:34 O2 Flow Rate 4 04/25/23 11:30 FiO2 40 04/24/23 19:50 BMI result Body Mass Index 28.5 Appearance: Alert.? Oriented X3.?sob seems improving cvs: rrr, [id number]. res: air entry seems fair,slightly diminshed at bases . abd: no rebound or guarding ,nt, bs present. ext pulses present , no cyanosis,has edema neuro: axo3 , nonfocal. Objective Data Active Medications Acetaminophen (Acetaminophen 325 Mg Tablet) 650 mg PO Q6H PRN PRN Reason: Pain, Mild (Pain Scale 1-3) Last Admin: 04/25/23 07:53 Dose: 650 mg Documented By: WQAAS Albuterol Sulfate (Albuterol Sulfate (0.083%) 2.5 Mg/3 Ml Vial.Neb) 2.5 mg INHALE Q4H PRN PRN Reason: Wheezing Last Admin: 04/22/23 20:23 Dose: 2.5 mg Documented By: NATHALIE Benzocaine (Throat Lozenge, Medicated Lozenge) 1 lozenge MUCOUS MEM Q2H PRN PRN Reason: Sore Throat Last Admin: 04/25/23 07:52 Dose: 1 lozenge Documented By: WAQAS Glucose (Glucose Gel 15 Gm Gel..Gram.) 15 gm PO Q15M PRN; Protocol PRN Reason: per Hypoglycemia Standing Ord. Hydralazine HCl (Hydralazine Hcl 25 Mg Tablet) 25 mg PO BID BRENNEN; Protocol Last Admin: 04/25/23 07:52 Dose: 25 mg Documented By: WAQAS Dextrose (D10) 250 mls @ 750 mls/hr IV Q15M PRN; Protocol PRN Reason: per Hypoglycemia Standing Ord. Last Infusion: 04/22/23 09:50 Dose: 0 mls/hr Documented By: FOSTEKR Dextrose (D10) 250 mls @ 750 mls/hr IV Q15M PRN; Protocol PRN Reason: per Hypoglycemia Standing Ord. Bumetanide 25 mg/ IV (Miscellaneous Supplies) 100 mls @ 4 mls/hr IVCONT .Q24H [facility] Last Infusion: 04/25/23 14:55 Dose: 0 mg/hr, 0 mls/hr Documented By: WAQAS Doxycycline Hyclate 100 mg/ (Sodium Chloride) 250 mls @ 166.67 mls/hr IV Q12H [facility] Last Infusion: 04/25/23 13:30 Dose: 0 mls/hr Documented By: WAQAS Ceftriaxone Sodium 2 gm/ (Sodium Chloride) 50 mls @ 100 mls/hr IV Q24H [facility] Last Infusion: 04/24/23 23:10 Dose: 0 mls/hr Documented By: ESHA Insulin Glargine (Insulin Glargine,Hum.Rec.Anlog 100 Unit/Ml 10 Ml Vial) 20 unit SUBCUT BEDTIME [facility] Last Admin: 04/24/23 20:02 Dose: 20 unit Documented By: ESHA Insulin Human Lispro (Insulin Lispro 100 Unit/Ml 3 Ml Vial) 0 unit SUBCUT QIDACHS [facility]; Protocol Last Admin: 04/25/23 11:52 Dose: 8 unit Documented By: WAQAS Ketorolac Tromethamine (Ketorolac Tromethamine 0.5% Op 5 Ml Drops) 1 drop EYE-BOTH TID [facility] Last Admin: 04/25/23 16:00 Dose: 1 drop Documented By: WAQAS Ondansetron HCl (Ondansetron Hcl 4 Mg/2 Ml Vial) 4 mg IVPUSH Q8H PRN PRN Reason: Nausea and Vomiting Pharmacy Consult (Consult Rx Perform Med Rec) 1 each MISCELLANE ONCE PRN PRN Reason: Consult order Prednisolone Acetate (Prednisolone Acetate 1 % Oph Susp 5 Ml Drpbtl) 1 drop EYE-BOTH TID [facility] Last Admin: 04/25/23 16:00 Dose: 1 drop Documented By: WAQAS Sodium Chloride (0.9 % Sodium Chloride Flush 3 Ml Syringe) 3 ml IVFLUSH QSHIFT [facility] Last Admin: 04/25/23 16:03 Dose: 3 ml Documented By: WAQAS Labs 04/24/23 06:11 04/25/23 08:07 Labs: Laboratory Results - last 24 hr 04/23/23 04/23/23 04/24/23 05:59 05:59 16:48 Anion Gap Estim Creat Clear Calc Estimated GFR POC Glucose 235 H Random Glucose Calcium Hepatitis C Ab (EIA) Reactive H HIV 1&2 Ab/P24 Ag 4thGn Nonreactive 04/24/23 04/25/23 04/25/23 19:36 07:24 08:07 Anion Gap 19 Estim Creat Clear Calc 31.3 Estimated GFR 28 POC Glucose 260 H 149 H Random Glucose 142 H Calcium 9.8 D Hepatitis C Ab (EIA) HIV 1&2 Ab/P24 Ag 4thGn 04/25/23 04/25/23 11:37 15:41 Anion Gap Estim Creat Clear Calc Estimated GFR POC Glucose 327 H 272 H Random Glucose Calcium Hepatitis C Ab (EIA) HIV 1&2 Ab/P24 Ag 4thGn Assessment and Plan (1) Pneumonia: Status: Acute (2) Decompensated heart failure: Status: Acute (3) Acute kidney failure: Status: Acute (4) Anasarca: Status: Acute (5) Nephrotic syndrome: Status: Acute Plan 57 year old male with chronic normocytic anemia, htn, hld, diabetic polyneuropathy, diabetic nephropathy, chronic pain syndrome, insulin dependent type 2 diabetes, and depression admitted for anasarca associated with nephrotic syndome. acute hypoxemic respiratory failure multifactorial Anasarca related to nephrotic syndrome (possible due to diabetic nephropathy), decompensated heart failure with preserved LV systolic function with advanced diastolic dysfunction, also ? pneumonia ( has few episode of fevers during this admission) Bx 02/10 showing diabetic nephropathy and TMA. CARA negative,also cocaine positive,UA with 3+ proteinuria. sob improving, now on NC 4liters sats in 90's i/o 12 liter negative , no new fevers ,strep and legionella ag pending ,blood cultures neg@48hrs Strict I&O, greco catheter for fluid management,Low sodium diet switched to IV bumex iv tid,continue albumin,adjusted hydralazine , on doxycycline/ceftriaxone since 04/22/23. Added PYP scan for cardiac amyloidosis evaluation. Acute kidney injury-related to above cr wosening slowly 2.3 Hypokalemia-repleted Continue diuresis,Follow BMP anemia normocytic: h/h aroun8/24.9 worsening Possible anemia of chronic disease Patient denies any melena or angelo blood in the stool iron studies low iron ,tibc ,ferritin normal fobt neg in january s/p 1 prbc 2 days back, today got almost half of the blood PRBC back, needed to hold rest of prbc bag due to fever, transfusion reaction labs sent which seems to be fine -consistent with a febrile non hemolytic transfusion reaction. give tylenol before tranfusion (if needed). moniter cbc closely insulin-dependent type 2 diabetes with hyperglycemia fs 160-200 Diabetic diet hold lantus , avoid insulin coverage below 200 mg/dl HTN- suboptimal. continue coreg to 6.125 BID,adjusted hydralazine Cocaine abuse-Utox positive Addiction med consult Hep C ab positive-Viral load seems detected DVT prophylaxis- hold lovenox due to anemia ,scd. Full code inpatient? need: Acute hypoxemic respiratory failure secondary to above-anasarca, nephrotic syndrome, possible CHF- need iv diuretic, renal function electrolyte monitoring, need cardiac workup. Time Spent With Patient Time: Total time managing care of this patient today ____ minutes. Quality Stroke Does the patient have a stroke diagnosis?: No VTE Prior VTE?: No VTE Risk Level:: Medical - moderate - high VTE Device Contraindication: Treatment Not Indicated VTE Drug Contraindication: N/A - Med Ordered
[2023-04-25] MEDS: Bumetanide 1 MG/4 ML VIAL 2 MG IVPUSH ×2 (17:23→22:05)
[2023-04-25] MEDS: Albumin Human 25 % 100 ML IV (17:32)
[2023-04-25 20:05] LABS: Glucose, Whole Blood 269 mg/dL (60-115)
[2023-04-25] MEDS: Insulin Glargine,Hum.rec.anlog 100 UNIT/ML 10 ML VIAL 20 UNIT SUBCUT (21:58)
[2023-04-25] MEDS: cefTRIAXone sodium 2 GM in 0.9 % Sodium Chloride 50 ML IV (21:58)
[2023-04-25] MEDS: hydrALAZINE HCl 50 MG TABLET PO (21:59)
[2023-04-26] VITALS (7 sets, daily range): BP systolic 135–185; BP diastolic 70–85; PULSE 77–83; RESP 14–20; TEMP 36.2–36.7; O2SAT 94–98
[2023-04-26] MEDS: Albumin Human 25 % 100 ML IV ×3 (00:31→10:28)
[2023-04-26] MEDS: Melatonin 3 MG TABLET 6 MG PO (01:47)
[2023-04-26] MEDS: Doxycycline Hyclate 100 MG in 0.9 % Sodium Chloride 250 ML 166.67 MG IV ×2 (01:48→12:21)
[2023-04-26] MEDS: 0.9 % Sodium Chloride Flush 3 ML SYRINGE IVFLUSH ×3 (01:52→15:03)
[2023-04-26 07:03] LABS: Hematocrit 26.1 % (42.0-52.0); Hemoglobin 8.4 g/dl (14.0-18.0); Mean Corpuscular HGB Conc 32.2 g/dl (31.0-36.0); Mean Corpuscular Hemoglobin 26.6 pg (27.0-33.0); Mean Corpuscular Volume 82.6 fL (80.0-98.0); Mean Platelet Volume 10.2 fL (9.4-12.4); Platelet Count 318 X10*3/uL (160-400); Red Blood Count 3.16 X10*6/uL (4.60-5.80); Red Cell Distribution Width 15.9 % (11.0-16.0); White Blood Count 5.2 X10*3/uL (4.8-10.8)
[2023-04-26 07:32] LABS: Glucose, Whole Blood 240 mg/dL (60-115)
[2023-04-26 07:38] LABS: Alanine Aminotransferase 11 U/L (0-40); Albumin Level 3.9 g/dL (3.5-5.0); Alkaline Phosphatase 150 U/L (39-117); Anion Gap 15 (12-20); Aspartate Amino Transferase 14 U/L (5-37); Bilirubin Total 0.4 mg/dL (0.0-1.0); Blood Urea Nitrogen 92 mg/dL (9-16); Calcium 9.2 mg/dL (8.4-10.2); Carbon Dioxide 34 mmol/L (22-29); Chloride 93 mmol/L (96-108); Creatinine Clr Calc Pharmacy 33.5; Estimated Glomerular Filt Rate 31; Glucose Random 255 mg/dL (60-115); Potassium 3.1 mmol/L (3.3-5.1); Sodium 139 mmol/L (135-145); Total Protein 6.7 g/dL (6.5-8.0)
[2023-04-26] MEDS: Throat Lozenge, Medicated LOZENGE 1 LOZENGE MUCOUS MEM (08:17)
[2023-04-26] MEDS: hydrALAZINE HCl 50 MG TABLET PO ×2 (08:17→20:08)
[2023-04-26] MEDS: Bumetanide 1 MG/4 ML VIAL 2 MG IVPUSH ×3 (08:18→20:05)
[2023-04-26] MEDS: Insulin Lispro 100 UNIT/ML 3 ML VIAL SUBCUT ×3 (08:18→21:04)
[2023-04-26] MEDS: Ketorolac Tromethamine 0.5% Op 5 ML DROPS 1 DROP EYE-BOTH ×3 (08:24→22:26)
[2023-04-26] MEDS: prednisoLONE Acetate 1 % Oph Susp 5 ML DRPBTL 1 DROP EYE-BOTH ×3 (08:24→22:26)
[2023-04-26 11:35] LABS: Glucose, Whole Blood 184 mg/dL (60-115)
--- NOTE | 2023-04-26 15:06 | MHC.CM.PN ---
This CM was asked to speak with one of the pts relatives, the relative was an [id number]-law who drove up from [place] because her nephew (the pts son) has been very worried about the pt and is looking for information on the pts condition. This CM explained that we cannot provide information on the pt to anyone without the pts permission. This CM spoke to the pt with hand tool lapper/Diana. This CM explained that the pts son was looking for information on the pts condition, and asked the pt if he would like us to speak with him. At this time, the pt does not want us providing information to his son, he stated that his son can give him a call and he will talk to him. This CM also inquired about discharge plans and he stated he wants to go home with his previous [employer] [facility].
[2023-04-26 15:48] LABS: Glucose, Whole Blood 261 mg/dL (60-115)
--- NOTE | 2023-04-26 16:20 | PM.PNNEP ---
Subjective Subjective Date of Service: 04/26/23 Principal diagnosis: CHF Interval history: Seen and examined, events noted Physical Exam Vital Signs: Vital Signs: Last Vital Signs Temp 97.6 F 04/26/23 15:09 Pulse 81 04/26/23 15:09 Resp 17 04/26/23 15:09 BP 141/81 H 04/26/23 15:09 Pulse Ox 94 04/26/23 15:09 O2 Del Method Room Air 04/26/23 15:09 O2 Flow Rate 4 04/26/23 07:45 FiO2 40 04/24/23 19:50 BMI result Body Mass Index 28.5 Const: General: no acute distress Orientation/consciousness: patient oriented x3 Eyes: EOM: EOMs intact bilaterally Neck: Neck: Yes supple Resp: Auscultation: diminished lung sounds Cardio: Rate: regular rate GI: Palpation (GI): Soft to palpation Neuro: General: patient oriented x3 and moves all extremities Extrem: Other: Edematous Objective Data Labs 04/26/23 06:31 04/26/23 06:31 Labs: Laboratory Results - last 24 hr 04/25/23 04/26/23 04/26/23 20:03 06:31 06:31 WBC 5.2 RBC 3.16 L Hgb 8.4 L Hct 26.1 L MCV 82.6 MCH 26.6 L MCHC 32.2 RDW 15.9 Plt Count 318 MPV 10.2 Absolute Nucleated RBC 0.000 Nucleated RBC % (auto) 0.0 Sodium 139 Potassium 3.1 L Chloride 93 L Carbon Dioxide 34 H Anion Gap 15 BUN 92 H Creatinine 2.23 H Estim Creat Clear Calc 33.5 Estimated GFR 31 POC Glucose 269 H Random Glucose 255 H Calcium 9.2 D Total Bilirubin 0.4 AST 14 ALT 11 Alkaline Phosphatase 150 H Total Protein 6.7 Albumin 3.9 04/26/23 04/26/23 04/26/23 07:10 11:09 15:45 WBC RBC Hgb Hct MCV MCH MCHC RDW Plt Count MPV Absolute Nucleated RBC Nucleated RBC % (auto) Sodium Potassium Chloride Carbon Dioxide Anion Gap BUN Creatinine Estim Creat Clear Calc Estimated GFR POC Glucose 240 H 184 H 261 H Random Glucose Calcium Total Bilirubin AST ALT Alkaline Phosphatase Total Protein Albumin Microbiology Microbiology Results: Microbiology 04/22/23 06:22 Blood - Venous Blood Culture - Preliminary No growth after 48 hours. 04/22/23 06:22 Blood - Venous Blood Culture - Preliminary No growth after 48 hours. Procedures Date of Service Date of Service: 04/26/23 Assessment & Plan Assessment and plan (1) Acute kidney failure: Status: Acute Assessment and Plan: Non-Oligurc KWAME: multi-fact ischemic/renal hypoperfusion: despite aggressive diuresis CKD 3: Bx proven DN/TMA ( 12/2022) Marked Fluid overload/Anasarca: was diuretic resitant but now excellent response REC: cont bumex drip to 2mg IV bumex q8 hrs and tomorrow look to swith to po toorsemide; track UOP/renal func Will follwow with team Time Spent With Patient Time: Total time managing care of this patient today ____ minutes. Progress Note: Quality Stroke Does the patient have a stroke diagnosis?: No
--- NOTE | 2023-04-26 16:59 | PC.NURSE ---
greco cath was remove at 1655. pt tolerated well. pt is due to void [id number].
--- NOTE | 2023-04-26 18:54 | HO.PM.IMPN ---
Subjective Subjective Date of Service: 04/26/23 Interval History: f/u on heart failure overall doing well Physical Exam Vital Signs: Vital Signs: Last Vital Signs Temp 97.6 F 04/26/23 15:09 Pulse 81 04/26/23 15:09 Resp 17 04/26/23 15:09 BP 141/81 H 04/26/23 15:09 Pulse Ox 94 04/26/23 15:09 O2 Del Method Room Air 04/26/23 15:09 O2 Flow Rate 4 04/26/23 07:45 FiO2 40 04/24/23 19:50 BMI result Body Mass Index 28.5 Const: Other: General: AO X 3, no acute distress Resp: CTA bilateral CVS: S1,S2,RRR, 1+ edema GI: +BS, NT, no distention Skin: No rash Neuro: motor grossly intact Psych: appropriate affect Objective Data Active Medications Acetaminophen (Acetaminophen 325 Mg Tablet) 650 mg PO Q6H PRN PRN Reason: Pain, Mild (Pain Scale 1-3) Last Admin: 04/25/23 07:53 Dose: 650 mg Documented By: WAQAS Albuterol Sulfate (Albuterol Sulfate (0.083%) 2.5 Mg/3 Ml Vial.Neb) 2.5 mg INHALE Q4H PRN PRN Reason: Wheezing Last Admin: 04/22/23 20:23 Dose: 2.5 mg Documented By: NATHALIE Benzocaine (Throat Lozenge, Medicated Lozenge) 1 lozenge MUCOUS MEM Q2H PRN PRN Reason: Sore Throat Last Admin: 04/26/23 08:17 Dose: 1 lozenge Documented By: WAQAS Bumetanide (Bumetanide 1 Mg/4 Ml Vial) 2 mg IVPUSH TID BRENNEN; Protocol Last Admin: 04/26/23 15:03 Dose: 2 mg Documented By: WAQAS Glucose (Glucose Gel 15 Gm Gel..Gram.) 15 gm PO Q15M PRN; Protocol PRN Reason: per Hypoglycemia Standing Ord. Hydralazine HCl (Hydralazine Hcl 50 Mg Tablet) 50 mg PO BID BRENNEN; Protocol Last Admin: 04/26/23 08:17 Dose: 50 mg Documented By: WAQAS Dextrose (D10) 250 mls @ 750 mls/hr IV Q15M PRN; Protocol PRN Reason: per Hypoglycemia Standing Ord. Last Infusion: 04/22/23 09:50 Dose: 0 mls/hr Documented By: FOSTEKR Dextrose (D10) 250 mls @ 750 mls/hr IV Q15M PRN; Protocol PRN Reason: per Hypoglycemia Standing Ord. Doxycycline Hyclate 100 mg/ (Sodium Chloride) 250 mls @ 166.67 mls/hr IV Q12H [facility] Last Infusion: 04/26/23 14:00 Dose: 0 mls/hr Documented By: WAQAS Ceftriaxone Sodium 2 gm/ (Sodium Chloride) 50 mls @ 100 mls/hr IV Q24H [facility] Last Infusion: 04/25/23 22:35 Dose: 0 mls/hr Documented By: OSKAR Insulin Glargine (Insulin Glargine,Hum.Rec.Anlog 100 Unit/Ml 10 Ml Vial) 20 unit SUBCUT BEDTIME [facility] Last Admin: 04/25/23 21:58 Dose: 20 unit Documented By: OSKAR Insulin Human Lispro (Insulin Lispro 100 Unit/Ml 3 Ml Vial) 0 unit SUBCUT QIDACHS [facility]; Protocol Last Admin: 04/26/23 17:14 Dose: 6 unit Documented By: WAQAS Ketorolac Tromethamine (Ketorolac Tromethamine 0.5% Op 5 Ml Drops) 1 drop EYE-BOTH TID [facility] Last Admin: 04/26/23 15:03 Dose: 1 drop Documented By: WAQAS Melatonin (Melatonin 3 Mg Tablet) 6 mg PO BEDTIME PRN PRN Reason: Insomnia Last Admin: 04/26/23 01:47 Dose: 6 mg Documented By: OLGA LIDIA Ondansetron HCl (Ondansetron Hcl 4 Mg/2 Ml Vial) 4 mg IVPUSH Q8H PRN PRN Reason: Nausea and Vomiting Pharmacy Consult (Consult Rx Perform Med Rec) 1 each MISCELLANE ONCE PRN PRN Reason: Consult order Prednisolone Acetate (Prednisolone Acetate 1 % Oph Susp 5 Ml Drpbtl) 1 drop EYE-BOTH TID [facility] Last Admin: 04/26/23 15:03 Dose: 1 drop Documented By: WAQAS Sodium Chloride (0.9 % Sodium Chloride Flush 3 Ml Syringe) 3 ml IVFLUSH QSHIFT [facility] Last Admin: 04/26/23 15:03 Dose: 3 ml Documented By: WAQAS Labs 04/26/23 06:31 04/26/23 06:31 Labs: Laboratory Results - last 24 hr 04/25/23 04/26/23 04/26/23 20:03 06:31 06:31 MCV 82.6 MCH 26.6 L MCHC 32.2 RDW 15.9 Plt Count 318 MPV 10.2 Absolute Nucleated RBC 0.000 Nucleated RBC % (auto) 0.0 Anion Gap 15 Estim Creat Clear Calc 33.5 Estimated GFR 31 POC Glucose 269 H Random Glucose 255 H Calcium 9.2 D Total Bilirubin 0.4 AST 14 ALT 11 Alkaline Phosphatase 150 H Total Protein 6.7 Albumin 3.9 04/26/23 04/26/23 04/26/23 07:10 11:09 15:45 MCV MCH MCHC RDW Plt Count MPV Absolute Nucleated RBC Nucleated RBC % (auto) Anion Gap Estim Creat Clear Calc Estimated GFR POC Glucose 240 H 184 H 261 H Random Glucose Calcium Total Bilirubin AST ALT Alkaline Phosphatase Total Protein Albumin Assessment and Plan (1) Pneumonia: Status: Acute (2) Decompensated heart failure: Status: Acute (3) Acute kidney failure: Status: Acute (4) Anasarca: Status: Acute (5) Nephrotic syndrome: Status: Acute Plan 57 year old male with chronic normocytic anemia, htn, hld, diabetic polyneuropathy, diabetic nephropathy, chronic pain syndrome, insulin dependent type 2 diabetes, and depression admitted for anasarca associated with nephrotic syndome. Acute diastolic Heart failure with marked fluid overload and anasarca, diuretic resistant and in the setting of CKD and required agresive IV diuretics with IV bumex drip and ultimately transitioning to IV push 2 Q 8 with now excellent [place] [id number] liters under the direction of cardiology and Nephrology. At this point we will change meds to oral Bumex 2 mg Twice daily, Coreg 3.125 mg bid, Hydralazine 3 times a day, and to adhere to strick low salt diet, med compliance and follow up with PCP. PYP scan was negative for amiloidosis CKD 3 with KWAME likley d/t cardio renal syndrome and has improved following diuresis, presently Cr 2.3 and stable over days Anemia of chronic disease of cks--H/H stable, required routine transfusion when hemoglobin dropped to 6.3 on 04/22 but H/H since been stable at 8.4 no insulin-dependent type 2 diabetes with hyperglycemia--resume home meds at discharge HTN--continue coreg, hydralazine Cocaine abuse-Utox positive, advised to stopped Hep C ab positive-Viral load seems undetectable Patient at this point is not interested in rehab and rather wants to go home Time Spent With Patient Time: Total time managing care of this patient today ____ minutes. Quality Stroke Does the patient have a stroke diagnosis?: No VTE Prior VTE?: No VTE Risk Level:: Medical - moderate - high VTE Device Contraindication: Treatment Not Indicated VTE Drug Contraindication: N/A - Med Ordered
[2023-04-26 19:24] LABS: Glucose, Whole Blood 209 mg/dL (60-115)
[2023-04-26] MEDS: Insulin Glargine,Hum.rec.anlog 100 UNIT/ML 10 ML VIAL 20 UNIT SUBCUT (21:04)
[2023-04-26 22:09] LABS: Strep Pneumo Ag urine Not Detected (Not Detected)
[2023-04-26] MEDS: cefTRIAXone sodium 2 GM in 0.9 % Sodium Chloride 50 ML IV (22:32)
[2023-04-27] MEDS: Doxycycline Hyclate 100 MG in 0.9 % Sodium Chloride 250 ML 166.67 MG IV (00:08)
[2023-04-27] MEDS: 0.9 % Sodium Chloride Flush 3 ML SYRINGE IVFLUSH ×2 (01:43→07:56)
[2023-04-27 03:26] VITALS: BP 172/74; PULSE 84; RESP 18; TEMP 36.8; O2SAT 95
[2023-04-27 04:08] LABS: Legionella Ag Urine Not Detected (Not Detected)
[2023-04-27 07:09] LABS: Glucose, Whole Blood 104 mg/dL (60-115)
[2023-04-27 07:29] VITALS: BP 166/79; PULSE 81; RESP 20; TEMP 36.3; O2SAT 97
[2023-04-27] MEDS: hydrALAZINE HCl 50 MG TABLET PO (07:56)
[2023-04-27] MEDS: Bumetanide 1 MG/4 ML VIAL 2 MG IVPUSH (07:56)
[2023-04-27] MEDS: prednisoLONE Acetate 1 % Oph Susp 5 ML DRPBTL 1 DROP EYE-BOTH ×2 (07:57→14:31)
[2023-04-27] MEDS: Ketorolac Tromethamine 0.5% Op 5 ML DROPS 1 DROP EYE-BOTH ×2 (07:58→14:31)
[2023-04-27 11:01] LABS: Glucose, Whole Blood 198 mg/dL (60-115)
[2023-04-27 11:09] VITALS: BP 176/83; PULSE 76; RESP 20; TEMP 36.6; O2SAT 96
--- NOTE | 2023-04-27 12:37 | P.PNCA_ITS ---
Subjective Subjective Date of Service: 04/27/23 Principal diagnosis: CHF Interval history: Seen examined at bedside. Feeling better. Physical Exam Vital Signs: Last Vital Signs Temp 97.8 F 04/27/23 11:09 Pulse 76 04/27/23 11:09 Resp 20 04/27/23 11:09 BP 176/83 H 04/27/23 11:09 Pulse Ox 96 04/27/23 11:09 O2 Del Method Room Air 04/27/23 11:09 O2 Flow Rate 4 04/26/23 07:45 FiO2 40 04/24/23 19:50 BMI result Body Mass Index 28.5 GENERAL APPEARANCE: in no acute distress, pleasant. NECK: no carotid bruit, no jugular venous distention. SKIN: no suspicious lesions, warm and dry. HEART: no murmurs, regular rate and rhythm. LUNGS: clear to auscultation bilaterally. ABDOMEN: soft, nontender. EXTREMITIES: no edema. PERIPHERAL PULSES: equal. NEUROLOGIC: No gross deficits, AAO X 3 Objective Labs and Meds 04/26/23 06:31 04/26/23 06:31 Lab results: Laboratory Results - last 24 hr 04/22/23 04/26/23 04/26/23 23:15 15:45 19:05 POC Glucose 261 H 209 H Ur L.pneumophila Ag Not Detected Ur Strep pneumoniae Ag Not Detected 04/27/23 04/27/23 07:06 10:58 POC Glucose 104 198 H Ur L.pneumophila Ag Ur Strep pneumoniae Ag Progress Note: A&P Assessment and plan (1) Decompensated heart failure: Status: Acute Plan [age] gentleman with background of diabetes, vascular disease, hyperlip idemia and hypertension presenting with diastolic heart failure. He has been diuresed and appears to be euvolemic. He had PYP scan to rule out amyloidosis which was negative. He is feeling better. His blood pressure is elevated. Hydralazine can be increased to 3 times a day. He was taking car vedilol 3.125 mg b.i.d. which can be resumed. Should be on oral regimen of Bumex 2 mg b.i.d.. Nephrology following along. Thank you for allowing me to participate in the care of your patient. Please feel free to contact me if you have any questions. Time Spent With Patient Time: Total time managing care of this patient today ____ minutes. Progress Note: Quality Stroke Does the patient have a stroke diagnosis?: No Procedures Date of Service Date of Service: 04/27/23
[2023-04-27 14:49] LABS: Anion Gap 18 (12-20); Blood Urea Nitrogen 87 mg/dL (9-16); Calcium 9.4 mg/dL (8.4-10.2); Carbon Dioxide 31 mmol/L (22-29); Chloride 91 mmol/L (96-108); Creatinine Clr Calc Pharmacy 35.2; Estimated Glomerular Filt Rate 33; Glucose Random 260 mg/dL (60-115); Potassium 3.5 mmol/L (3.3-5.1); Sodium 136 mmol/L (135-145)
[2023-04-27 15:19] VITALS: BP 160/77; PULSE 77; RESP 18; TEMP 37; O2SAT 96
--- NOTE | 2023-05-04 11:06 | P.DS_ITS ---
DS: Providers Provider Date of Service: 04/27/23 Date of admission: 04/18/23 14:58 Primary care physician: Allison Montilla MD Consults: 04/18/23 15:02 Consult to Nephrology Routine Consulting Provider: Yaw Jon Reason for consultation: nephrotic syndrome 04/22/23 07:21 Consult to Critical Care Routine Consulting Provider: João Yee Reason for consultation: level of care Has provider been notified: Yes Consult to Infectious Diseases Routine Consulting Provider: [facility] [place] Reason for consultation: fuo Has provider been notified: No 04/22/23 09:24 Consult to Cardiology Routine Consulting Provider: [facility] [place] [facility] Reason for consultation: chest pain,? chf Has provider been notified: No DS: Diagnosis Discharge Diagnosis (1) Pneumonia: Status: Acute (2) Decompensated heart failure: Status: Acute (3) Acute kidney failure: Status: Acute (4) Anasarca: Status: Acute (5) Nephrotic syndrome: Status: Acute DS: Summary Hospital Course Hospital Course: Chief Complaint: edema 57 year old male with chronic normocytic anemia, htn, hld, diabetic polyneuropathy, diabetic nephropathy, chronic pain syndrome, insulin dependent type 2 diabetes, and depression presented to the ED earlier today for evaluation of edema. He reports for the last few days he has been experiencing increased edema in the BLE, abdomen, and scrotal/penile edema. He is also reporting shortness of breath. Was recently admitted here 02/01- for anasarca due to diabetic nephropathy with significant >1000 proteinuria and TMA noted on biopsy found to have HFpEF with EF 50-55%. CARA neg. Hep C ab positive. Diuresed 20+L fluid. Reports compliance with lasix since discharge and has been seen outpt per nephrology. He denies any ongoing drug use, though UTox is positive for cocaine. No etoh. No cigarettes. On arrival, pt hypertensive to 178/93, tachycardic to 111, afebrile, no hypoxia. No leukocytosis. H/H 7.6/25.2%. Creat 1.51 (baseline 1.11), BUN 19, electrolytes largely WNL. Initial glucose 38 (pt received lispro at home but did not eat), repeat glucose 92. Hepatic function normal. Albumin 2.2. UA with 3+ protein, trace blood, otherwise unremarkable. Utox positive for cocaine.? Abdominal CT showing moderate constipation without obstruction, diffuse abdominal wall edema, bilateral pleural effusions greater on the right side with bibasilar atelectasis as well as cholelithiasis.? CXR shows mild CHF for interstitial edema with small right pleural effusion. In the ED, given 40mg IV lasix. Hospital course: Acute diastolic Heart failure with marked fluid overload? and anasarca, diuretic resistant and in the setting of CKD and required agresive IV diuretics with IV bumex drip and ultimately transitioning to IV? push 2 Q 8? with now excellent [place] [address] [place] under the direction of cardiology and Nephrology.? At this point we will change meds to oral Bumex 2 mg Twice daily, Coreg 3.125 mg bid, Hydralazine 3 times a day, and to adhere to strick low salt diet, med compliance and follow up with PCP. PYP scan was negative for amiloidosis ?CKD 3 with KWAME likley d/t cardio renal syndrome and has improved following diuresis, presently Cr 2.3 and stable over days Anemia of chronic disease of cks--H/H stable,? required routine transfusion? when hemoglobin dropped to 6.3 on 04/22 but H/H since been stable at 8.4 no insulin-dependent type 2 diabetes with hyperglycemia--resume home meds at discharge HTN--continue coreg, hydralazine Cocaine abuse-Utox positive, advised to stopped Hep C ab positive-Viral load seems undetectable Patient at this point is not interested in rehab and rather wants to go home Time Spent with Patient Time attestation: Total time managing care of this patient today ____ minutes. Discharge coordination time: Greater than 30 minutes Quality: Safe Use of Opioids Does Pt have an Active Cancer Diagnosis on the Problem List?: No Quality: Stroke Does the patient have a stroke diagnosis?: No Physical Exam Vital Signs: Vital Signs: Last Vital Signs Temp 98.6 F 04/27/23 15:19 Pulse 77 04/27/23 15:19 Resp 18 04/27/23 15:19 BP 160/77 H 04/27/23 15:19 Pulse Ox 96 04/27/23 15:19 O2 Del Method Room Air 04/27/23 15:19 O2 Flow Rate 4 04/26/23 07:45 FiO2 40 04/24/23 19:50 BMI result Body Mass Index 28.5 DS: Data Data Completed and Pending Completed studies during hospitalization [Text1]: Procedures Excision of Right Kidney, Percutaneous Approach, Diagnostic (01/31/23) Transfusion of Nonautologous Red Blood Cells into Peripheral Vein, Percutaneous Approach (04/18/23) Discharge Plan Discharge Anticipated Discharge Date/Time: 04/27/23 13:58 Patient Disposition: Home Health Service Discharge Diagnosis: Heart failure exacerbation exacerbation Referrals: Allison Etienne MD [Primary Care Provider] - 1 Week Yaw Jon MD [Physician] - 2 Weeks Discharge Medications: New hydralazine 50 mg Tablet 50 mg PO TID Qty: 90 0RF Protocol: Hold for SBP< HOLD for SBP < : 90 bumetanide 2 mg tablet 2 mg PO BID Qty: 60 0RF melatonin 5 mg tablet 5 mg PO BEDTIME PRN (Reason: sleep) Qty: 30 0RF Continued ketorolac 0.5 % drops 1 drp ophthalmic (eye) TID prednisolone acetate 1 % drops,suspension 1 drp ophthalmic (eye) TID carvedilol 3.125 mg Tablet 3.125 mg PO BID Qty: 60 0RF Protocol: Hold for SBP/HR < HOLD for SBP < : 90 HOLD for HR < : 60 tamsulosin 0.4 mg capsule 0.4 mg PO DAILY diphenhydramine HCl [Benadryl] 25 mg capsule 25 mg PO BEDTIME ferrous sulfate 325 mg (65 mg iron) tablet 325 mg PO DAILY ziprasidone HCl [Geodon] 60 mg capsule 60 mg PO BID ramelteon 8 mg tablet 8 mg PO BEDTIME PRN (Reason: Insomnia) Trulicity 1.5 mg/0.5 mL pen injector 1.5 mg subcut WE@0900 Lantus Solostar U-100 Insulin 100 unit/mL (3 mL) insulin pen 32 unit subcut BEDTIME insulin lispro [Humalog KwikPen Insulin] 100 unit/mL insulin pen 12 unit subcut TIDAC Changed gabapentin 800 mg tablet 200 mg PO BID Qty: 60 0RF Discontinued furosemide [Lasix] 20 mg tablet 40 mg PO DAILY metformin 1,000 mg tablet 1,000 mg PO BID Discharge Orders: Discharge Order (Routine); Ordered 04/27/23 Ordered By: Jae Pleitez Diet: Diabetic diet Activity on Discharge: As tolerated Stand Alone Forms: Patient Portal Discharge page Care Plan Goals: full recovery from heart failure and kidney Health Concerns: heart failure kidney failure Nephrotic syndrome anemia Plan of Treatment: Take all your medications as recommended Avoid eating salty food, don't drink too much water weight yourself daily and if you gain more than 2 pounds a day then call your doctor for direction Follow up with your Doctor in a week, call for appointment Follow up with the kidney Doctor Dr. Jon Assessment: As above Discharge Date/Time: 04/27/23 18:40
== END 2023-04-27 18:40 | disposition home health service (06) | DRG 698 ==
LOC: HO.ED 14:34 → HO.EDOVER 15:34 → HO.S3 17:28 → HO.IMC 04-21 10:16 → HO.ICU 04-22 15:42 → HO.IMC 04-23 10:22
PROVIDERS: Internal Medicine; Internal Medicine Pulmonary Disease; Nurse Practitioner Family; Admitting Provider Physician Assistant; Emergency Provider Emergency Medicine; PCP Internal Medicine; Visit Provider Internal Medicine
DX: E11.22 Type 2 diabetes mellitus with diabetic chronic kidney disease (principal); J18.9 Pneumonia, unspecified organism; J96.01 Acute respiratory failure with hypoxia; I12.9 Hypertensive chronic kidney disease with stage 1 through stage 4 chronic kidney disease, or unspecified chronic kidney disease; D63.1 Anemia in chronic kidney disease; E11.42 Type 2 diabetes mellitus with diabetic polyneuropathy; N17.9 Acute kidney failure, unspecified; N18.30 Chronic kidney disease, stage 3 unspecified; F14.10 Cocaine abuse, uncomplicated; G89.29 Other chronic pain; Z20.822 Contact with and (suspected) exposure to COVID-19; Z79.4 Long term (current) use of insulin; Z79.899 Other long term (current) drug therapy
CPT/HCPCS: 36415; 36600; 71045; 71046; 74176; 78803; 80048; 80053; 80307; 81001; 82040; 82607; 82728; 82746; 82803; 82947; 83540; 83605; 83735; 83880; 84100; 84145; 84484; 85014; 85018; 85025; 85027; 85610; 85730; 86078; 86803; 86850; 86900; 86901; 86923; 87040; 87389; 87449; 87522; 87633; 87640; 87641; 87899; 93005; 93308; 94640; 99285; A9538; C1758; J0692; J0696; J1650; J1940; J2270; J3370; J3475; P9016; P9047; Q9957

== ENCOUNTER 2023-05-23 07:34 | Inpatient (IN) | payer OTHER, SELFPAY ==
[2023-05-23] VITALS (14 sets, daily range): BP systolic 109–147; BP diastolic 56–77; PULSE 75–82; RESP 14–20; TEMP 36.1–37.1; O2SAT 97–100; BMI 24.1; BMI 22.8
--- NOTE | 2023-05-23 09:06 | ED.ABDPAIN ---
HPI - Abdominal Pain General Chief Complaint: Abdominal Pain Stated Complaint: Blood pressure issues/Dizziness Time Seen by Provider: 05/23/23 08:08 History of Present Illness HPI narrative: 57 year old male with chronic normocytic anemia, htn, hld, diabetic polyneuropathy, diabetic nephropathy, chronic pain syndrome, insulin dependent type 2 diabetes,HFpEF with EF 50-55% and depression presented to the ED for evaluation of abdominal pain, nausea, vomiting, dizziness and fall. Patient states that over the last 2 days his blood pressures been low but he cannot tell me was blood pressure readings were pain he states that he has been feeling lightheaded and dizzy he describes the dizziness as a room spinning sensation states that yesterday he was walking to his kitchen the room was spinning any fell to the floor but did not lose consciousness. He states he has been having constant nausea with 5 episodes of vomiting per day. He denied fever or chills. He had rhinorrhea. He states he has had a nonproductive cough. He denied chest pain, shortness of breath. He has been experiencing urinary frequency but he attributes this to the diuretics. He denies dysuria. Patient was admitted from 04/18/2023 until 05/04/2023. I did review the patient's in-patient discharge summary, he was diagnosed with diastolic heart failure with marked fluid overload and anasarca resistant to diuretics with acute kidney injury. Patient required IV diuretics and was diarrhea 18 L. he was discharged on Bumex 2 mg b.i.d., Coreg 3.125 mg b.i.d. and hydralazine 3 times a day. Creatinine at discharge was 2.3. Patient's urine tox was also positive for cocaine. Related Data Home Medications Medication Instructions Recorded Confirmed dulaglutide 1.5 mg/0.5 mL 1.5 mg subcut WE@0900 09/25/20 04/18/23 subcutaneous pen injector (Trulicity) insulin glargine 100 unit/mL (3 32 unit subcut BEDTIME 12/22/20 04/18/23 mL) subcutaneous pen (Lantus Solostar U-100 Insulin) insulin lispro 100 unit/mL 12 unit subcut TIDAC 12/22/20 04/18/23 subcutaneous pen (Humalog KwikPen (U-100) Insulin) ketorolac 0.5 % eye drops 1 drp ophthalmic (eye) TID 01/31/23 04/18/23 prednisolone acetate 1 % eye 1 drp ophthalmic (eye) TID 01/31/23 04/18/23 drops,suspension diphenhydramine HCl 25 mg capsule 25 mg PO BEDTIME 04/18/23 04/18/23 (Benadryl) ferrous sulfate 325 mg (65 mg 325 mg PO DAILY 04/18/23 04/18/23 iron) tablet ramelteon 8 mg tablet 8 mg PO BEDTIME PRN Insomnia 04/18/23 04/18/23 tamsulosin 0.4 mg capsule 0.4 mg PO DAILY 04/18/23 04/18/23 ziprasidone HCl 60 mg capsule 60 mg PO BID 04/18/23 04/18/23 (Geodon) Previous Rx's Medication Instructions Recorded carvedilol 3.125 mg tablet 3.125 mg PO BID #60 tabs 02/09/23 bumetanide 2 mg tablet 2 mg PO BID #60 tabs 04/27/23 gabapentin 800 mg tablet 200 mg PO BID #60 tabs 04/27/23 hydralazine 50 mg tablet 50 mg PO TID #90 tabs 04/27/23 melatonin 5 mg tablet 5 mg PO BEDTIME PRN sleep #30 tabs 04/27/23 Allergies Allergy/AdvReac Type Severity Reaction Status Date / Time No Known Allergies Allergy Verified 04/18/23 09:11 [No Known Allergies*] Review of Systems Review of Systems Yes all other systems are reviewed and are negative [facility] Past Medical History [facility] Narrative: Past medical history: Reviewed below, patient has diastolic dysfunction with normal EF, anasarca with fluid overload diuresed 18 L on 04/18/23 admission social history: He denies tobacco, alcohol and drug use Medical History (Updated 05/23/23 @ 16:33 by Kenji Diaz MD) Anemia Anemia Chronic pain syndrome Depression Diabetic nephropathy Diabetic polyneuropathy HLD (hyperlipidemia) HTN (hypertension) Nephrotic syndrome Pneumonia T2DM (type 2 diabetes mellitus) Vitamin D deficiency Surgical History Hx of colonoscopy Hx of rotator cuff surgery Status post biopsy of kidney Family History Family History Father Colon cancer Mother History of kidney problems T2DM (type 2 diabetes mellitus) Sister T2DM (type 2 diabetes mellitus) Social History Social History Household Members: Unknown / Unable to assess Alcohol intake: never Patient Tobacco Use Status: Never used Tobacco Substance Use Type: Crack/Cocaine Advance Directives: Yes Advance Directives on File: Yes Advance Directives Date on File: 04/28/23 service: No Current occupational status: disabled Current occupation: right handed Physical Exam ED Vital Signs: Vital Signs - 24 hr 05/23/23 07:41 05/23/23 08:41 05/23/23 09:53 Temperature 98.0 F 97.8 F Pulse Rate 80 76 77 Respiratory Rate 18 16 Blood Pressure 111/60 126/68 126/66 Pulse Oximetry 100 97 Oxygen Delivery Method Room Air Room Air 05/23/23 09:55 05/23/23 09:55 05/23/23 11:21 Temperature 97.9 F Pulse Rate 78 78 78 Respiratory Rate 18 Blood Pressure 123/65 118/64 121/64 Pulse Oximetry 100 Oxygen Delivery Method Room Air 05/23/23 12:20 05/23/23 16:00 Temperature 98.7 F Pulse Rate 78 80 Respiratory Rate 14 18 Blood Pressure 126/73 125/67 Pulse Oximetry 97 99 Oxygen Delivery Method Room Air Room Air BMI result Body Mass Index 24.1 Const General: cooperative and no acute distress Orientation/consciousness: oriented to person and oriented to place Limitations: no limitations HENMT Head: Yes normal to inspection, Yes normocephalic and Yes atraumatic Ears: external ears normal General nose exam: Normal external nose present Face and sinus: Yes normal facial exam Mouth: Normal oral and palatal mucosa present Throat: Yes posterior oropharynx normal Eyes General: appearance normal, both eyes and all related structures Pupils: Equal, round and reactive pupils present Neck Neck: Yes normal visual inspection, Yes no lymphadenopathy, Yes trachea midline and Yes supple Chest Chest palpation & inspection: normal inspection of the chest and normal palpation of entire chest wall Resp Effort & Inspection: normal respiratory effort and able to speak in complete sentences Auscultation: clear to auscultation bilaterally Cardio Rate: regular rate Rhythm: regular rhythm Heart sounds: S1 normal heart sound present, S2 normal heart sound present and no murmurs GI Other: Patient's abdomen is nondistended, has normoactive bowel sounds, has diffuse abdominal tenderness with no rebound, no voluntary or involuntary guarding General: Yes no CVA tenderness Back/Spine/Pelvis Back: no CVA tenderness Skin General skin exam: no rashes or lesions noted Neuro General: oriented to person and oriented to place Cranial nerves: Yes CN's II-XII intact bilaterally and Yes Equal, round and reactive pupils present Cognition (Neuro): normal cognition Motor exam (neuro): 5/5 motor strength present throughout Extrem General: Yes normal to inspection Psych Appearance: grossly normal Speech and movement: Normal speech and movement present Affect: normal affect Medical Decision Making Medical Decision Making MDM Narrative: 57 year old male with chronic normocytic anemia, htn, hld, diabetic polyneuropathy, diabetic nephropathy, chronic pain syndrome, insulin dependent type 2 diabetes,HFpEF with EF 50-55%, admission on 04/18/2023 for anasarca diuresed 18 L and depression presented to the ED for evaluation of abdominal pain, nausea, vomiting, dizziness and fall. Patient's vital signs were normal. Patient had diffuse abdominal tenderness otherwise exam is unremarkable. I ordered the following tests: 12 EKG, chest x-ray two view, BNP, CBC, CMP, COVID-19, drug screen, lipase, troponin, urinalysis. Patient will be gently hydrated with lactated Ringer's 500 cc x1. I also ordered Toradol 15 mg IV for his pain and Zofran 4 mg IV for his nausea and vomiting 1236: Laboratory evaluation Elevated BUN creatinine 45 and 2.87 which is consistent with chronic kidney disease. Anemia with an H&H 7 and 20.9. This is lower than his previous values. Patient's WBC is high of 30,000 with a left shift 83% neutrophils, unclear etiology. Patient feels better after the above treatment, he is hungry, his abdominal tenderness improved. Given the elevated WBC I will obtain CT scan abdomen pelvis without IV contrast to look for possible infectious source. Also need to obtain a urine from the patient. 1627: Patient's urinalysis was unremarkable in the patient's CT scan of the abdomen pelvis did not explain his laboratory abnormalities I ordered a type and screen, lactic acid, magnesium and repeat potassium. I will discuss admission with the covering hospitalist. 1715: I did discuss the patient with Dr. Rubi the covering hospitalist. After this discussion, patient was ordered to get transfused 1 unit of packed red blood cells over 2 hours There is not a clear etiology for his elevated WBC, infectious process needs be considered . The patient's lactic acid is 1.0 The patient's will be treated empirically with ceftriaxone 1 g IV. Patient will be admitted for further management. Differential Diagnosis Differential diagnosis includes was not limited to viral syndrome, gastritis, myocardial infarction, vertigo, hypovolemia secondary to over-diuresis, anemia, electrolyte abnormality Lab Data MDM Lab Attestation statement: I reviewed the patient's lab results. My interpretation patient's laboratory evaluation is as follows: WBC elevated 30,000 with 83 neutrophils, 7 lymphocytes, no bands. Anemia with an H&H of 7.0 and 29.9-this is chronic. Potassium was low 2.9, BUN and creatinine were elevated at 45 and 2.87-this is improved compared to his previous numbers. Glucose elevated 189. Alk-phos elevated 191. She urinalysis was positive for protein, glucose, blood microscopic revealed 5 RBCs, 0 WBC people no bacteria. 05/23/23 09:49 05/23/23 09:49 Labs: Lab Results 05/23/23 05/23/23 05/23/23 Range/Units 09:49 09:49 09:49 WBC 30.0 H* (4.8-10.8) X10*3/uL RBC 2.61 L (4.60-5.80) X10*6/uL Hgb 7.0 L* (14.0-18.0) g/dl Hct 20.9 L* (42.0-52.0) % MCV 80.1 (80.0-98.0) fL MCH 26.8 L (27.0-33.0) pg MCHC 33.5 (31.0-36.0) g/dl RDW 15.9 (11.0-16.0) % Plt Count 300 (160-400) X10*3/uL MPV 10.2 (9.4-12.4) fL Immature Gran % (Auto) 2.7 H (0.0-0.4) % Neut % (Auto) 83.1 H (45-73) % Lymph % (Auto) 7.1 L (20-40) % [place] % (Auto) 6.3 (2-11) % Eos % (Auto) 0.5 (0-4) % Baso % (Auto) 0.3 (0-2) % Lymph # (Auto) 2.1 (1.2-4.9) X10*3/uL [place] # (Auto) 1.9 H (0.1-1.2) X10*3/uL Eos # (Auto) 0.2 (0.0-0.4) X10*3/uL Baso # (Auto) 0.1 (0.0-0.2) X10*3/uL Abs Immat Gran (auto) 0.82 H (0.00-0.03) X10*3/uL Absolute Neuts (auto) 24.9 H (2.0-8.3) x10*3/uL Absolute Nucleated RBC 0.000 (0.0-0.012) X10*3/uL Nucleated RBC % (auto) 0.0 (0.0-0.2) /100WBC Smear Tech's Comments VERIFIED Sodium 134 L (135-145) mmol/L Potassium 2.9 L (3.3-5.1) mmol/L Chloride 102 (96-108) mmol/L Carbon Dioxide 22 (22-29) mmol/L Anion Gap 13 (12-20) BUN 45 H (9-16) mg/dL Creatinine 2.87 H (0.5-1.4) mg/dL Estim Creat Clear Calc 23.4 Estimated GFR 23 Random Glucose 189 H (60-115) mg/dL Lactic Acid (0.5-2.0) mmol/L Calcium 8.4 D (8.4-10.2) mg/dL Total Bilirubin 0.4 (0.0-1.0) mg/dL AST 31 (5-37) U/L ALT 28 (0-40) U/L Alkaline Phosphatase 191 H (39-117) U/L Troponin I High Sens 26.4 (<3.5-35.0) ng/L B-Natriuretic Peptide (<100) pg/mL Total Protein 6.9 (6.5-8.0) g/dL Albumin 2.4 L (3.5-5.0) g/dL Lipase 13 (8-78) U/L Urine Color Urine Appearance Urine pH (5.0-9.0) Ur Specific [place] (1.005-1.025) Urine Protein (Neg-Trace) mg/dL Urine Glucose (UA) (Negative) mg/dL Urine Ketones (Negative) mg/dL Urine Blood (Negative) Urine Nitrite (Negative) Ur Leukocyte Esterase (Negative) Urine RBC (0-2) /HPF Urine WBC (0-5) /HPF Ur Squamous Epith Cells (0-2) /HPF Urine Bacteria (None Seen) Hyaline Casts (0-2) /LPF Urine Opiates Screen (Not Detect) Urine Fentanyl Screen (Not Detect) Ur Barbiturates Screen (Not Detect) Ur Phencyclidine Scrn (Not Detect) Ur Amphetamines Screen (Not Detect) U Benzodiazepines Scrn (Not Detect) Urine Cocaine Screen (Not Detect) U Marijuana (THC) Screen (Not Detect) COVID-19 (JJ) (Negative) COVID-19 Clin Com 05/23/23 05/23/23 05/23/23 Range/Units 09:49 09:49 14:24 WBC (4.8-10.8) X10*3/uL RBC (4.60-5.80) X10*6/uL Hgb (14.0-18.0) g/dl Hct (42.0-52.0) % MCV (80.0-98.0) fL MCH (27.0-33.0) pg MCHC (31.0-36.0) g/dl RDW (11.0-16.0) % Plt Count (160-400) X10*3/uL MPV (9.4-12.4) fL Immature Gran % (Auto) (0.0-0.4) % Neut % (Auto) (45-73) % Lymph % (Auto) (20-40) % [place] % (Auto) (2-11) % Eos % (Auto) (0-4) % Baso % (Auto) (0-2) % Lymph # (Auto) (1.2-4.9) X10*3/uL [place] # (Auto) (0.1-1.2) X10*3/uL Eos # (Auto) (0.0-0.4) X10*3/uL Baso # (Auto) (0.0-0.2) X10*3/uL Abs Immat Gran (auto) (0.00-0.03) X10*3/uL Absolute Neuts (auto) (2.0-8.3) x10*3/uL Absolute Nucleated RBC (0.0-0.012) X10*3/uL Nucleated RBC % (auto) (0.0-0.2) /100WBC Smear Tech's Comments Sodium (135-145) mmol/L Potassium (3.3-5.1) mmol/L Chloride (96-108) mmol/L Carbon Dioxide (22-29) mmol/L Anion Gap (12-20) BUN (9-16) mg/dL Creatinine (0.5-1.4) mg/dL Estim Creat Clear Calc Estimated GFR Random Glucose (60-115) mg/dL Lactic Acid (0.5-2.0) mmol/L Calcium (8.4-10.2) mg/dL Total Bilirubin (0.0-1.0) mg/dL AST (5-37) U/L ALT (0-40) U/L Alkaline Phosphatase (39-117) U/L Troponin I High Sens (<3.5-35.0) ng/L B-Natriuretic Peptide 161 H (<100) pg/mL Total Protein (6.5-8.0) g/dL Albumin (3.5-5.0) g/dL Lipase (8-78) U/L Urine Color Yellow Urine Appearance Clear Urine pH 6.0 (5.0-9.0) Ur Specific [place] 1.015 (1.005-1.025) Urine Protein >=1000 (4+) H (Neg-Trace) mg/dL Urine Glucose (UA) 500 H (Negative) mg/dL Urine Ketones Negative (Negative) mg/dL Urine Blood Trace H (Negative) Urine Nitrite Negative (Negative) Ur Leukocyte Esterase Negative (Negative) Urine RBC 3-5 H (0-2) /HPF Urine WBC 0-5 (0-5) /HPF Ur Squamous Epith Cells 0-2 (0-2) /HPF Urine Bacteria None Seen (None Seen) Hyaline Casts 3-5 (0-2) /LPF Urine Opiates Screen (Not Detect) Urine Fentanyl Screen (Not Detect) Ur Barbiturates Screen (Not Detect) Ur Phencyclidine Scrn (Not Detect) Ur Amphetamines Screen (Not Detect) U Benzodiazepines Scrn (Not Detect) Urine Cocaine Screen (Not Detect) U Marijuana (THC) Screen (Not Detect) COVID-19 (JJ) Negative (Negative) COVID-19 Clin Com See Note 05/23/23 05/23/23 Range/Units 14:24 16:44 WBC (4.8-10.8) X10*3/uL RBC (4.60-5.80) X10*6/uL Hgb (14.0-18.0) g/dl Hct (42.0-52.0) % MCV (80.0-98.0) fL MCH (27.0-33.0) pg MCHC (31.0-36.0) g/dl RDW (11.0-16.0) % Plt Count (160-400) X10*3/uL MPV (9.4-12.4) fL Immature Gran % (Auto) (0.0-0.4) % Neut % (Auto) (45-73) % Lymph % (Auto) (20-40) % [place] % (Auto) (2-11) % Eos % (Auto) (0-4) % Baso % (Auto) (0-2) % Lymph # (Auto) (1.2-4.9) X10*3/uL [place] # (Auto) (0.1-1.2) X10*3/uL Eos # (Auto) (0.0-0.4) X10*3/uL Baso # (Auto) (0.0-0.2) X10*3/uL Abs Immat Gran (auto) (0.00-0.03) X10*3/uL Absolute Neuts (auto) (2.0-8.3) x10*3/uL Absolute Nucleated RBC (0.0-0.012) X10*3/uL Nucleated RBC % (auto) (0.0-0.2) /100WBC Smear Tech's Comments Sodium (135-145) mmol/L Potassium (3.3-5.1) mmol/L Chloride (96-108) mmol/L Carbon Dioxide (22-29) mmol/L Anion Gap (12-20) BUN (9-16) mg/dL Creatinine (0.5-1.4) mg/dL Estim Creat Clear Calc Estimated GFR Random Glucose (60-115) mg/dL Lactic Acid 1.8 (0.5-2.0) mmol/L Calcium (8.4-10.2) mg/dL Total Bilirubin (0.0-1.0) mg/dL AST (5-37) U/L ALT (0-40) U/L Alkaline Phosphatase (39-117) U/L Troponin I High Sens (<3.5-35.0) ng/L B-Natriuretic Peptide (<100) pg/mL Total Protein (6.5-8.0) g/dL Albumin (3.5-5.0) g/dL Lipase (8-78) U/L Urine Color Urine Appearance Urine pH (5.0-9.0) Ur Specific [place] (1.005-1.025) Urine Protein (Neg-Trace) mg/dL Urine Glucose (UA) (Negative) mg/dL Urine Ketones (Negative) mg/dL Urine Blood (Negative) Urine Nitrite (Negative) Ur Leukocyte Esterase (Negative) Urine RBC (0-2) /HPF Urine WBC (0-5) /HPF Ur Squamous Epith Cells (0-2) /HPF Urine Bacteria (None Seen) Hyaline Casts (0-2) /LPF Urine Opiates Screen Not Detected (Not Detect) Urine Fentanyl Screen Not Detected (Not Detect) Ur Barbiturates Screen Not Detected (Not Detect) Ur Phencyclidine Scrn Not Detected (Not Detect) Ur Amphetamines Screen Not Detected (Not Detect) U Benzodiazepines Scrn Not Detected (Not Detect) Urine Cocaine Screen POSITIVE H (Not Detect) U Marijuana (THC) Screen Not Detected (Not Detect) COVID-19 (JJ) (Negative) COVID-19 Clin Com Radiology Impression Discussion of test interpretation with radiology: I have reviewed the radiologist's reading. Radiologist Impression: R chest 2V IMPRESSION: No acute cardiopulmonary process. Interval improvement from the previous study. Dictated By:Shawn Rodriguez MD CT abdomen pelvis wo IV con IMPRESSION: 1. No acute intra-abdominal/pelvic abnormality to explain the patient's pain. 2. Cholelithiasis without evidence for acute cholecystitis. 3. Low-attenuation focus adjacent to the gallbladder is nonspecific, but demonstrates benign features and could represent a cyst. 4. Mild to moderate prostatomegaly. Mild diffuse mural thickening in the urinary bladder is likely secondary to chronic urinary retention. Trace free fluid in the pelvis of indeterminate cause. 5. L5-S1 moderate degenerative disc disease with bilateral neural foraminal narrowing. If symptoms persist or worsen, a short-term repeat study with intravenous and oral contrast is recommended. Dictated By:Shawn Rodriguez MD Medications Administered Discontinued Medications Generic Name Dose Route Start Last Admin Trade Name Freq PRN Reason Stop Dose Admin Lactated Ringer's 500 mls @ 500 mls/hr 05/23/23 09:15 05/23/23 11:14 Lr IV 05/23/23 10:14 Infused .Q1H BRENNEN Infusion Ketorolac Tromethamine 15 mg 05/23/23 09:13 05/23/23 10:04 Ketorolac Tromethamine 15 Mg/Ml Vial IVPUSH 05/23/23 09:14 15 mg ONCE STA Administration Ondansetron HCl 4 mg 05/23/23 09:13 05/23/23 10:04 Ondansetron Hcl 4 Mg/2 Ml Vial IVPUSH 05/23/23 09:14 4 mg ONCE ONE Administration Potassium Chloride 40 meq 05/23/23 12:36 05/23/23 12:48 Potassium Chloride Packet 20 Meq Packet PO 05/23/23 12:37 40 meq ONCE ONE Administration Discharge Plan Discharge Patient Disposition: Admitted As Inpatient
--- NOTE | 2023-05-23 11:23 | PC.NURSE ---
pt resting quietly in bed, resp equal and unlabored. patient has relief from pain
--- NOTE | 2023-05-23 17:50 | PC.NURSE ---
PT EATING DINNER, NO OUTWARD DISTRESS, IV ANTIBIOTICS ARE INFUSING. REMAINS IN A NSR ON THE MONITOR
--- NOTE | 2023-05-23 17:59 | PM.IMHP ---
History of Present Illness Date of Service: 05/23/23 Attending physician on admission: Fadia Rubi Chief Complaint: n/v, abd pain 57 year old male with chronic normocytic anemia, htn, hld, diabetic polyneuropathy, diabetic nephropathy, chronic pain syndrome, insulin dependent type 2 diabetes, cocaine abuse, nephrotic syndrome, diastolic heart failure, and depression presented to the ED earlier today for evaluation of abdominal pain, nausea, vomiting, lightheadedness over the last 2 days. He states that his blood pressures are low but he is unable to tell us the blood pressure readings. Denies any syncope. He is currently asymptomatic and denies any abdominal pain, nausea and states last episode of vomiting was yesterday. He denies eating any bad foods or recent travel. No one at home with similar symptoms. Denies any fevers, chills, diarrhea, constipation, melena, hematochezia. He admits to ongoing IV cocaine use. He was recently admitted from 04/18-05/04 diagnosed with new onset diastolic heart failure and worsening nephrotic syndrome with marked fluid overload and anasarca. He was diuresed 18 L and was discharged on Bumex which he states he has been taking as prescribed. On arrival, vital signs stable. He has a leukocytosis of 30,000 with 83% neutrophils and 2.7% immature granulocytes. H/H 7.0/20.9%. Creat 2.87 (was 2.12 on discharge), BUN 45, Tj 134, K on arrival 2.9 repleted with 40meq KCl with improvement to 3.6. Glucose 189. Lactic acid 1.8. Urine tox screen positive for cocaine only. Urinalysis with negative leuks, negative nitrites, trace blood, positive glucose, and 4+ protein. No bacteria. CXR negative. CT abdomen/pelvis without any acute intra-abdominal abnormality but showed cholelithiasis without acute cholecystitis with possible gallbladder cyst. There is also mild to moderate prostatomegaly and mural thickening of the urinary bladder likely related to chronic urinary retention with trace free fluid in the pelvis of indeterminate cause. Given patient's history and significant leukocytosis, has been treated empirically with 1 g IV ceftriaxone and has also been given ondansetron, 1/2 L IV LR and ketorolac. Review of Systems Review of Systems: General: No fevers, malaise, unintentional weight loss HEENT: No blurred vision, diplopia. No sore throat, nasal congestion, rhinorrhea, sinus pain, ear pain Cardiovascular: No chest pain, palpitations, or leg edema Respiratory: No shortness of breath, wheezing, cough GI: +abd pain, n, v. No diarrhea, constipation, melena, hematochezia : No dysuria, hematuria, increased urinary frequency, decreased urinary output MSK: No myalgia, back pain Neuro: No headaches, weakness, paresthesias. +lightheadedness Skin: No rashes or lesions [facility] Medical History (Updated 05/23/23 @ 18:23 by FLY Flaherty) Anemia Anemia Chronic pain syndrome Depression Diabetic nephropathy Diabetic polyneuropathy Diastolic heart failure HLD (hyperlipidemia) HTN (hypertension) Nephrotic syndrome Pneumonia T2DM (type 2 diabetes mellitus) Vitamin D deficiency Family History Father Colon cancer Mother History of kidney problems T2DM (type 2 diabetes mellitus) Sister T2DM (type 2 diabetes mellitus) Surgical History Hx of colonoscopy Hx of rotator cuff surgery Status post biopsy of kidney Social History Household Members: Unknown / Unable to assess Alcohol intake: never Patient Tobacco Use Status: Never used Tobacco Substance Use Type: Crack/Cocaine Advance Directives: Yes Advance Directives on File: Yes Advance Directives Date on File: 04/28/23 service: No Current occupational status: disabled Current occupation: right handed [employer] Allergies Allergy/AdvReac Type Severity Reaction Status Date / Time No Known Allergies Allergy Verified 04/18/23 09:11 [No Known Allergies*] Active Medications: Current Medications Acetaminophen (Acetaminophen 325 Mg Tablet) 650 mg PO Q6H PRN PRN Reason: Pain, Mild (Pain Scale 1-3) Docusate Sodium (Docusate Sodium 100 Mg Capsule) 100 mg PO DAILY PRN PRN Reason: Constipation Ondansetron HCl (Ondansetron Hcl 4 Mg/2 Ml Vial) 4 mg IVPUSH Q8H PRN PRN Reason: Nausea and Vomiting Sodium Chloride (0.9 % Sodium Chloride Flush 3 Ml Syringe) 3 ml IVFLUSH QSHIFT BRENNEN Home Medications Medication Instructions Recorded Confirmed Last Taken Type dulaglutide 1.5 mg/0.5 mL 1.5 mg subcut WE@0900 09/25/20 05/23/23 01/26/23 History subcutaneous pen injector (Trulicity) insulin glargine 100 unit/mL (3 32 unit subcut BEDTIME 12/22/20 05/23/23 01/30/23 History mL) subcutaneous pen (Lantus Solostar U-100 Insulin) insulin lispro 100 unit/mL 12 unit subcut TIDAC 12/22/20 05/23/23 04/18/23 History subcutaneous pen (Humalog KwikPen (U-100) Insulin) ketorolac 0.5 % eye drops 1 drp ophthalmic (eye) TID 01/31/23 05/23/23 Unknown History prednisolone acetate 1 % eye 1 drp ophthalmic (eye) TID 01/31/23 05/23/23 Unknown History drops,suspension diphenhydramine HCl 25 mg capsule 25 mg PO BEDTIME 04/18/23 05/23/23 Unknown History (Benadryl) ferrous sulfate 325 mg (65 mg 325 mg PO DAILY 04/18/23 05/23/23 Unknown History iron) tablet ramelteon 8 mg tablet 8 mg PO BEDTIME PRN Insomnia 04/18/23 05/23/23 04/17/23 History tamsulosin 0.4 mg capsule 0.4 mg PO DAILY 04/18/23 05/23/23 Unknown History ziprasidone HCl 60 mg capsule 60 mg PO BID 04/18/23 05/23/23 Unknown History (Geodon) atorvastatin 80 mg tablet 80 mg PO DAILY 05/23/23 05/23/23 Unknown History gabapentin 100 mg capsule 200 mg PO BID 05/23/23 05/23/23 Unknown History Physical Exam Vital Signs and Narrative: Vital Signs: Last Vital Signs Temp 98.7 F 05/23/23 16:00 Pulse 80 05/23/23 16:00 Resp 18 05/23/23 16:00 BP 125/67 05/23/23 16:00 Pulse Ox 99 05/23/23 16:00 O2 Del Method Room Air 05/23/23 16:00 BMI result Body Mass Index 24.1 Constitutional - Awake and Alert, No apparent distress Eyes - PERRLA, EOMI Cardiovascular - S1S2, RRR, No edema Respiratory - Normal lung expansion, Normal respiratory effort, No respiratory distress, CTA bilaterally Gastrointestinal - NT / ND; +BS; No rebound or guarding Extremities - no calf tenderness bilaterally, no swelling Skin - Warm/Dry Neurological - Alert & oriented x3 Results Labs 05/23/23 09:49 05/23/23 16:44 Labs: Laboratory Results - last 24 hr 05/23/23 05/23/23 05/23/23 09:49 09:49 09:49 MCV 80.1 MCH 26.8 L MCHC 33.5 RDW 15.9 Plt Count 300 MPV 10.2 Immature Gran % (Auto) 2.7 H Neut % (Auto) 83.1 H Lymph % (Auto) 7.1 L [place] % (Auto) 6.3 Eos % (Auto) 0.5 Baso % (Auto) 0.3 Lymph # (Auto) 2.1 [place] # (Auto) 1.9 H Eos # (Auto) 0.2 Baso # (Auto) 0.1 Abs Immat Gran (auto) 0.82 H Absolute Neuts (auto) 24.9 H Absolute Nucleated RBC 0.000 Nucleated RBC % (auto) 0.0 Smear Tech's Comments VERIFIED Anion Gap 13 Estim Creat Clear Calc 23.4 Estimated GFR 23 Random Glucose 189 H Lactic Acid Calcium 8.4 D Magnesium Total Bilirubin 0.4 AST 31 ALT 28 Alkaline Phosphatase 191 H Troponin I High Sens 26.4 B-Natriuretic Peptide Total Protein 6.9 Albumin 2.4 L Lipase 13 Urine Color Urine Appearance Urine pH Ur Specific [place] Urine Protein Urine Glucose (UA) Urine Ketones Urine Blood Urine Nitrite Ur Leukocyte Esterase Urine RBC Urine WBC Ur Squamous Epith Cells Urine Bacteria Hyaline Casts Urine Opiates Screen Urine Fentanyl Screen Ur Barbiturates Screen Ur Phencyclidine Scrn Ur Amphetamines Screen U Benzodiazepines Scrn Urine Cocaine Screen U Marijuana (THC) Screen COVID-19 (JJ) COVID-19 Clin Com 05/23/23 05/23/23 05/23/23 09:49 09:49 14:24 MCV MCH MCHC RDW Plt Count MPV Immature Gran % (Auto) Neut % (Auto) Lymph % (Auto) [place] % (Auto) Eos % (Auto) Baso % (Auto) Lymph # (Auto) [place] # (Auto) Eos # (Auto) Baso # (Auto) Abs Immat Gran (auto) Absolute Neuts (auto) Absolute Nucleated RBC Nucleated RBC % (auto) Smear Tech's Comments Anion Gap Estim Creat Clear Calc Estimated GFR Random Glucose Lactic Acid Calcium Magnesium Total Bilirubin AST ALT Alkaline Phosphatase Troponin I High Sens B-Natriuretic Peptide 161 H Total Protein Albumin Lipase Urine Color Yellow Urine Appearance Clear Urine pH 6.0 Ur Specific [place] 1.015 Urine Protein >=1000 (4+) H Urine Glucose (UA) 500 H Urine Ketones Negative Urine Blood Trace H Urine Nitrite Negative Ur Leukocyte Esterase Negative Urine RBC 3-5 H Urine WBC 0-5 Ur Squamous Epith Cells 0-2 Urine Bacteria None Seen Hyaline Casts 3-5 Urine Opiates Screen Urine Fentanyl Screen Ur Barbiturates Screen Ur Phencyclidine Scrn Ur Amphetamines Screen U Benzodiazepines Scrn Urine Cocaine Screen U Marijuana (THC) Screen COVID-19 (JJ) Negative COVID-19 Clin Com See Note 05/23/23 05/23/23 05/23/23 14:24 16:44 16:44 MCV MCH MCHC RDW Plt Count MPV Immature Gran % (Auto) Neut % (Auto) Lymph % (Auto) [place] % (Auto) Eos % (Auto) Baso % (Auto) Lymph # (Auto) [place] # (Auto) Eos # (Auto) Baso # (Auto) Abs Immat Gran (auto) Absolute Neuts (auto) Absolute Nucleated RBC Nucleated RBC % (auto) Smear Tech's Comments Anion Gap Estim Creat Clear Calc Estimated GFR Random Glucose Lactic Acid 1.8 Calcium Magnesium 1.9 Total Bilirubin AST ALT Alkaline Phosphatase Troponin I High Sens B-Natriuretic Peptide Total Protein Albumin Lipase Urine Color Urine Appearance Urine pH Ur Specific [place] Urine Protein Urine Glucose (UA) Urine Ketones Urine Blood Urine Nitrite Ur Leukocyte Esterase Urine RBC Urine WBC Ur Squamous Epith Cells Urine Bacteria Hyaline Casts Urine Opiates Screen Not Detected Urine Fentanyl Screen Not Detected Ur Barbiturates Screen Not Detected Ur Phencyclidine Scrn Not Detected Ur Amphetamines Screen Not Detected U Benzodiazepines Scrn Not Detected Urine Cocaine Screen POSITIVE H U Marijuana (THC) Screen Not Detected COVID-19 (JJ) COVID-19 Clin Com Imaging Radiologist's Impressions: Impressions Chest X-Ray 05/23/23 10:14 IMPRESSION: No acute cardiopulmonary process. Interval improvement from the previous study. Abdomen/Pelvis CT 05/23/23 13:40 IMPRESSION: 1. No acute intra-abdominal/pelvic abnormality to explain the patient's pain. 2. Cholelithiasis without evidence for acute cholecystitis. 3. Low-attenuation focus adjacent to the gallbladder is nonspecific, but demonstrates benign features and could represent a cyst. 4. Mild to moderate prostatomegaly. Mild diffuse mural thickening in the urinary bladder is likely secondary to chronic urinary retention. Trace free fluid in the pelvis of indeterminate cause. 5. L5-S1 moderate degenerative disc disease with bilateral neural foraminal narrowing. If symptoms persist or worsen, a short-term repeat study with intravenous and oral contrast is recommended. Assessment and Plan (1) Leukocytosis: Status: Acute (2) Abdominal pain: Status: Acute Plan 57 year old male with chronic normocytic anemia, htn, hld, diabetic polyneuropathy, diabetic nephropathy, chronic pain syndrome, insulin dependent type 2 diabetes, cocaine abuse, nephrotic syndrome, diastolic heart failure, and depression to be observed for the nausea and vomiting with significant leukocytosis of unclear etiology. #Acute abdominal pain with nausea/vomiting- resolved -?r/t viral syndrome -CT abdomen/pelvis negative for any acute intra-abdominal abnormality -patient wants to eat and has not vomited since yesterday. Diabetic diet -ondansetron p.r.n. #Acute leukocytosis -WBC 30,000 -possibly reactive r/t cocaine use and vomiting. However, elevation is more concerning for infectious etiology. Given empiric ceftriaxone in ED -Infectious work up negative- CXR negative, UA not indicative of infection, CT abdomen/pelvis without acute abnormality. Patient is now asymptomatic -Will be monitored to ensure blood cultures negative given ongoing IV cocaine abuse -Discussed with ID, recommending empiric treatment with zosyn and vanco given history and significant leukocytosis. -Follow CBC, cultures #Acute on chronic anemia of chronic disease -ED to transfuse 1 unit PRBC -Follow CBC -Monitor on telemetry #Acute kidney injury- likely related to hypovolemia due to GI losses -has CKD stage 4 at baseline -Creat 2.87, was 2.12 on d/c 05/04 -Given IV LR in ED. Tolerating PO. Encourage PO intake. Hold on further IV fluids given congestive heart failure history #Nephrotic syndrome -appears euvolemic -KWAME as above #Chronic diastolic heart failure -no acute exacerbation -hold Bumex at this time in the setting of above. Resume as appropriate # insulin-dependent type 2 diabetes with hyperglycemia -glucose 38 on arrival, patient reports he was given lispro at home but did not eat, improved to 92 -Diabetic diet -Continue home basal insulin -Humlog on sliding scale -Hold PO antihyperglycemics #HTN- reasonably controlled -hold Bumex. Continue carvedilol, hydralazine -Follow BPs #Cocaine abuse -Utox positive -Addiction med consult -Counseled on cessation DVT prophylaxis- SCP Full code Time Spent With Patient Time: Total time managing care of this patient today ____ minutes. Quality Stroke Does the patient have a stroke diagnosis?: No VTE Prior VTE?: No VTE Risk Level:: Medical - moderate - high VTE Device Contraindication: N/A - Device Ordered VTE Drug Contraindication: Treatment Not Indicated
--- NOTE | 2023-05-23 18:09 | PHA.MEDREC ---
Pharmacy Consult ? Medication Reconciliation Pharmacy has completed the medication reconciliation. sPOKE TO SISTER. PATIENT RECENTLY RESTARTED ON ATORVASTATIN. INSULIN DOSES ARE THE SAME SINCE LAST ADMISSION. PATIENT IS ON BUMEX...NOT LASIX. ACCIDENTALLY PICKED UP 05/04 BUT PATIENT IS NOT GETTING. SHE ENDORSES THEY ARE FOLLOWING THE MEDICATION CHANGES FROM THE HOSPITAL DISCHARGE. CLAIM HISTORY SUPPORTS THIS CLAIM GERRY
[2023-05-24 03:37] VITALS: BP 116/64; PULSE 73; RESP 18; TEMP 36; O2SAT 97
[2023-05-24 07:34] VITALS: BP 127/73; PULSE 80; RESP 18; TEMP 36.3; O2SAT 96
--- NOTE | 2023-05-24 10:34 | HO.PM.IMPN ---
Subjective Subjective Date of Service: 05/25/23 Interval History: f/u on n/v abd pain, interval history: no pain, no n/v and tolerating diet Physical Exam Vital Signs: Vital Signs: Last Vital Signs Temp 97.4 F 05/24/23 07:34 Pulse 80 05/24/23 07:34 Resp 18 05/24/23 07:34 BP 127/73 05/24/23 07:34 Pulse Ox 96 05/24/23 07:34 O2 Del Method Room Air 05/24/23 07:34 BMI result Body Mass Index 22.8 Objective Data Active Medications Acetaminophen (Acetaminophen 325 Mg Tablet) 650 mg PO Q6H PRN PRN Reason: Pain, Mild (Pain Scale 1-3) Atorvastatin Calcium (Atorvastatin Calcium 80 Mg Tablet) 80 mg PO DAILY [facility] Last Admin: 05/24/23 08:08 Dose: 80 mg Documented By: NELSON Carvedilol (Carvedilol 3.125 Mg Tablet) 3.125 mg PO BID [facility]; Protocol Last Admin: 05/24/23 08:08 Dose: 3.125 mg Documented By: NELSON Dextrose (Dextrose 50 % 25 Gm/50 Ml Syringe) 25 gm IVPUSH Q15M PRN; Protocol PRN Reason: per Hypoglycemia Standing Ord. Diphenhydramine HCl (Diphenhydramine Hcl 25 Mg Capsule) 25 mg PO BEDTIME [facility] Last Admin: 05/23/23 20:44 Dose: 25 mg Documented By: CINTHIA Docusate Sodium (Docusate Sodium 100 Mg Capsule) 100 mg PO DAILY PRN PRN Reason: Constipation Ferrous Sulfate (Ferrous Sulfate 324 Mg Tablet.) 324 mg PO DAILY [facility] Last Admin: 05/24/23 08:08 Dose: 324 mg Documented By: NELSON Gabapentin (Gabapentin 100 Mg Capsule) 200 mg PO BID [facility] Last Admin: 05/24/23 08:08 Dose: 200 mg Documented By: NELSON Glucose (Glucose Gel 15 Gm Gel..Gram.) 15 gm PO Q15M PRN; Protocol PRN Reason: per Hypoglycemia Standing Ord. Hydralazine HCl (Hydralazine Hcl 50 Mg Tablet) 50 mg PO TID [facility]; Protocol Last Admin: 05/24/23 08:08 Dose: 50 mg Documented By: NELSON Piperacillin Sod/Tazobactam (Sod 2.25 gm/ Sodium Chloride) 50 mls @ 100 mls/hr IV Q6H [facility] Last Infusion: 05/24/23 09:15 Dose: 0 mls/hr Documented By: NELSON Vancomycin HCl 750 mg/ Sodium (Chloride) 265 mls @ 265 mls/hr IV Q24H [facility] Insulin Glargine (Insulin Glargine,Hum.Rec.Anlog 100 Unit/Ml 10 Ml Vial) 24 unit SUBCUT BEDTIME [facility] Last Admin: 05/23/23 20:43 Dose: 24 unit Documented By: CINTHIA Insulin Human Lispro (Insulin Lispro 100 Unit/Ml 3 Ml Vial) 0 unit SUBCUT QIDACHS [facility]; Protocol Last Admin: 05/24/23 07:43 Dose: Not Given Documented By: NELSON Non-Admin Reason: No Insulin Coverage Ketorolac Tromethamine (Ketorolac Tromethamine 0.5% Op 5 Ml Drops) 1 drop EYE-BOTH TID [facility] Last Admin: 05/24/23 08:13 Dose: 1 drop Documented By: NELSON Melatonin (Melatonin 3 Mg Tablet) 6 mg PO BEDTIME PRN PRN Reason: sleep Non-Formulary Medication (Ramelteon) 8 mg PO BEDTIME PRN PRN Reason: Insomnia Ondansetron HCl (Ondansetron Hcl 4 Mg/2 Ml Vial) 4 mg IVPUSH Q8H PRN PRN Reason: Nausea and Vomiting Pharmacy Consult (Consult Rx Vancomycin Dosing) 1 each MISCELLANE DAILY PRN PRN Reason: Consult order Prednisolone Acetate (Prednisolone Acetate 1 % Oph Susp 5 Ml Drpbtl) 1 drop EYE-BOTH TID [facility] Last Admin: 05/24/23 08:12 Dose: 1 drop Documented By: NELSON Sodium Chloride (0.9 % Sodium Chloride Flush 3 Ml Syringe) 3 ml IVFLUSH QSHIFT [facility] Last Admin: 05/24/23 08:08 Dose: 3 ml Documented By: NELSON Tamsulosin HCl (Tamsulosin Hcl 0.4 Mg Capsule) 0.4 mg PO DAILY [facility] Last Admin: 05/24/23 08:08 Dose: 0.4 mg Documented By: NELSON Ziprasidone (Ziprasidone 60 Mg Capsule) 60 mg PO BID [facility] Last Admin: 05/24/23 08:08 Dose: 60 mg Documented By: NELSON Labs 05/24/23 05:53 05/24/23 05:53 Labs: Laboratory Results - last 24 hr 05/23/23 05/23/23 05/23/23 09:49 09:49 09:49 MCV MCH MCHC RDW Plt Count MPV Immature Gran % (Auto) 2.7 H Neut % (Auto) 83.1 H Lymph % (Auto) 7.1 L [place]offey % (Auto) 6.3 Eos % (Auto) 0.5 Baso % (Auto) 0.3 Lymph # (Auto) 2.1 [place]offey # (Auto) 1.9 H Eos # (Auto) 0.2 Baso # (Auto) 0.1 Abs Immat Gran (auto) 0.82 H Absolute Neuts (auto) 24.9 H Absolute Nucleated RBC 0.000 Nucleated RBC % (auto) 0.0 Smear Tech's Comments VERIFIED Anion Gap Estim Creat Clear Calc Estimated GFR POC Glucose Random Glucose Lactic Acid Calcium Magnesium Troponin I High Sens 26.4 B-Natriuretic Peptide 161 H Urine Color Urine Appearance Urine pH Ur Specific [place] Urine Protein Urine Glucose (UA) Urine Ketones Urine Blood Urine Nitrite Ur Leukocyte Esterase Urine RBC Urine WBC Ur Squamous Epith Cells Urine Bacteria Hyaline Casts Urine Opiates Screen Urine Fentanyl Screen Ur Barbiturates Screen Ur Phencyclidine Scrn Ur Amphetamines Screen U Benzodiazepines Scrn Urine Cocaine Screen U Marijuana (THC) Screen Blood Type Antibody Screen Crossmatch 05/23/23 05/23/23 05/23/23 14:24 14:24 16:44 MCV MCH MCHC RDW Plt Count MPV Immature Gran % (Auto) Neut % (Auto) Lymph % (Auto) [place]offe[place] % (Auto) Eos % (Auto) Baso % (Auto) Lymph # (Auto) [place]offey # (Auto) Eos # (Auto) Baso # (Auto) Abs Immat Gran (auto) Absolute Neuts (auto) Absolute Nucleated RBC Nucleated RBC % (auto) Smear Tech's Comments Anion Gap Estim Creat Clear Calc Estimated GFR POC Glucose Random Glucose Lactic Acid Calcium Magnesium 1.9 Troponin I High Sens B-Natriuretic Peptide Urine Color Yellow Urine Appearance Clear Urine pH 6.0 Ur Specific [place] 1.015 Urine Protein >=1000 (4+) H Urine Glucose (UA) 500 H Urine Ketones Negative Urine Blood Trace H Urine Nitrite Negative Ur Leukocyte Esterase Negative Urine RBC 3-5 H Urine WBC 0-5 Ur Squamous Epith Cells 0-2 Urine Bacteria None Seen Hyaline Casts 3-5 Urine Opiates Screen Not Detected Urine Fentanyl Screen Not Detected Ur Barbiturates Screen Not Detected Ur Phencyclidine Scrn Not Detected Ur Amphetamines Screen Not Detected U Benzodiazepines Scrn Not Detected Urine Cocaine Screen POSITIVE H U Marijuana (THC) Screen Not Detected Blood Type Antibody Screen Crossmatch 05/23/23 05/23/23 05/23/23 16:44 18:41 20:24 MCV MCH MCHC RDW Plt Count MPV Immature Gran % (Auto) Neut % (Auto) Lymph % (Auto) [place]offey % (Auto) Eos % (Auto) Baso % (Auto) Lymph # (Auto) [place]offey # (Auto) Eos # (Auto) Baso # (Auto) Abs Immat Gran (auto) Absolute Neuts (auto) Absolute Nucleated RBC Nucleated RBC % (auto) Smear Tech's Comments Anion Gap Estim Creat Clear Calc Estimated GFR POC Glucose 223 H Random Glucose Lactic Acid 1.8 Calcium Magnesium Troponin I High Sens B-Natriuretic Peptide Urine Color Urine Appearance Urine pH Ur Specific [place] Urine Protein Urine Glucose (UA) Urine Ketones Urine Blood Urine Nitrite Ur Leukocyte Esterase Urine RBC Urine WBC Ur Squamous Epith Cells Urine Bacteria Hyaline Casts Urine Opiates Screen Urine Fentanyl Screen Ur Barbiturates Screen Ur Phencyclidine Scrn Ur Amphetamines Screen U Benzodiazepines Scrn Urine Cocaine Screen U Marijuana (THC) Screen Blood Type A Positive Antibody Screen NEGATIVE Crossmatch See Detail 05/24/23 05/24/23 05/24/23 05:53 05:53 07:37 MCV 81.5 MCH 27.3 MCHC 33.5 RDW 15.5 Plt Count 318 MPV 10.7 Immature Gran % (Auto) 1.2 H Neut % (Auto) 77.2 H Lymph % (Auto) 12.4 L [place] % (Auto) 6.4 Eos % (Auto) 2.5 Baso % (Auto) 0.3 Lymph # (Auto) 2.3 Coffey # (Auto) 1.2 Eos # (Auto) 0.5 H Baso # (Auto) 0.1 Abs Immat Gran (auto) 0.21 H Absolute Neuts (auto) 14.1 H Absolute Nucleated RBC 0.000 Nucleated RBC % (auto) 0.0 Smear Tech's Comments Anion Gap 13 Estim Creat Clear Calc 27.8 Estimated GFR 28 POC Glucose 116 H Random Glucose 90 Lactic Acid Calcium 8.0 L Magnesium Troponin I High Sens B-Natriuretic Peptide Urine Color Urine Appearance Urine pH Ur Specific [place] Urine Protein Urine Glucose (UA) Urine Ketones Urine Blood Urine Nitrite Ur Leukocyte Esterase Urine RBC Urine WBC Ur Squamous Epith Cells Urine Bacteria Hyaline Casts Urine Opiates Screen Urine Fentanyl Screen Ur Barbiturates Screen Ur Phencyclidine Scrn Ur Amphetamines Screen U Benzodiazepines Scrn Urine Cocaine Screen U Marijuana (THC) Screen Blood Type Antibody Screen Crossmatch Assessment and Plan (1) SIRS (systemic inflammatory response syndrome): Status: Acute Plan 57 year old male with chronic normocytic anemia, htn, hld, diabetic polyneuropathy, diabetic nephropathy, chronic pain syndrome, insulin dependent type 2 diabetes, cocaine abuse, nephrotic syndrome, diastolic heart failure, and depression to be observed for the nausea and vomiting with significant leukocytosis of unclear etiology. #Acute abdominal pain with nausea/vomiting, no acute finding on CT but marked leukocytosis--symptoms resovled. On empric IV Abx with Zosy.. WBCV now 18K down from 30K #Leukocytosis, SIRS-? reactive, no definitive source of infetion. See Abx use above, stopp Abx by tomorrow if cultures negative #Acute on chronic anemia of chronic disease--Better aftr 1 unit of RBC #Acute kidney injury-on CKD, creatinne is within baseline, restart all meds #Nephrotic syndrome -appears euvolemic -KWAME as above #Chronic diastolic heart failure -no acute exacerbation -hold Bumex at this time in the setting of above.? Resume as appropriate # insulin-dependent type 2 diabetes with hyperglycemia -glucose 38 on arrival, patient reports he was given lispro at home but did not eat, improved to 92 -Diabetic diet -Continue home basal insulin -Humlog on sliding scale -Hold PO antihyperglycemics #HTN- reasonably controlled -hold Bumex.? Continue carvedilol, hydralazine -Follow BPs #Cocaine abuse -Utox positive -Addiction med consult -Counseled on cessation DVT prophylaxis- SCP Full code Time Spent With Patient Time: Total time managing care of this patient today ____ minutes. Quality Stroke Does the patient have a stroke diagnosis?: No VTE Prior VTE?: No VTE Risk Level:: Medical - moderate - high VTE Device Contraindication: N/A - Device Ordered VTE Drug Contraindication: Treatment Not Indicated
[2023-05-24 12:00] VITALS: BP 155/79; PULSE 84; RESP 6; TEMP 36.2; O2SAT 97
--- NOTE | 2023-05-24 14:03 | MHC.RECOVRN ---
This insurance writer met with patient, after receiving addiction consult. Pt reports snorting BENJAMIN 1x per week, $20 worth. Pt states im not interested in information, I am not addicted . Harm reduction reviewed. Pt agreeable to reviewing comprehensive care pamphlet, encouraged to reach out to the [facility] if any questions/concerns about supports for BENJAMIN use. Pt verbalized understanding.
[2023-05-24 15:21] VITALS: BP 149/80; PULSE 80; RESP 18; TEMP 36.6; O2SAT 98
--- NOTE | 2023-05-24 15:52 | MHC.CM.PN ---
Addendum entered by Mirian Nugent 05/24/23 15:58: CM MET WITH PT WITH A [facility] [employer] Original Note: PT REPORTS HE LIVES ALONE AND HAS A HEALTHCARE PROF HE SAYS HE ALSO HAS A [employer] RN THAT VISITS PERIODICALLY PT REPORTS HE HAS A LIFE LINE AND USES NO DME HE SAYS HIS SISTER, MARIA, IS HIS HCP, COPY REQUESTED PCP: ANDRES MUÑOZ OBSERVATION NOTICE DELIVERED DCP: HOME, RESUME HEALTHCARE PROF PT TO ARRANGE TRANSPORT
[2023-05-24 20:00] VITALS: BP 168/80; PULSE 89; RESP 18; TEMP 36.6; O2SAT 89
[2023-05-25 03:00] VITALS: BP 144/67; PULSE 82; RESP 16; TEMP 36.9; O2SAT 95
[2023-05-25 07:04] LABS: Anion Gap 13 (12-20); Blood Urea Nitrogen 34 mg/dL (9-16); Calcium 8.1 mg/dL (8.4-10.2); Carbon Dioxide 22 mmol/L (22-29); Chloride 110 mmol/L (96-108); Creatinine Clr Calc Pharmacy 30.1; Estimated Glomerular Filt Rate 31; Glucose Random 135 mg/dL (60-115); Potassium 3.5 mmol/L (3.3-5.1); Sodium 141 mmol/L (135-145)
[2023-05-25 07:13] VITALS: BP 164/74; PULSE 77; RESP 18; TEMP 36.6; O2SAT 99
--- NOTE | 2023-05-25 09:03 | PM.DS ---
DS: Providers Provider Date of Service: 05/25/23 Date of admission: 05/23/23 17:48 Primary care physician: Allison Montilla MD Consults: 05/23/23 18:40 Addiction Medicine Routine Consulting Provider: Addiction Covering Reason for consultation: iv cocaine use DS: Diagnosis Discharge Diagnosis (1) SIRS (systemic inflammatory response syndrome): Status: Acute DS: Summary Hospital Course Hospital Course: Chief Complaint: n/v, abd pain 57 year old male with chronic normocytic anemia, htn, hld, diabetic polyneuropathy, diabetic nephropathy, chronic pain syndrome, insulin dependent type 2 diabetes, cocaine abuse, nephrotic syndrome, diastolic heart failure, and depression presented to the ED earlier today for evaluation of abdominal pain, nausea, vomiting, lightheadedness over the last 2 days.? He states that his blood pressures are low but he is unable to tell us the blood pressure readings.? Denies any syncope.? He is currently asymptomatic and denies any abdominal pain, nausea and states last episode of vomiting was yesterday.? He denies eating any bad foods or recent travel.? No one at home with similar symptoms.? Denies any fevers, chills, diarrhea, constipation, melena, hematochezia.? He admits to ongoing IV cocaine use.? He was recently admitted from 04/18-05/04 diagnosed with new onset diastolic heart failure and worsening nephrotic syndrome with marked fluid overload and anasarca.? He was diuresed 18 L and was discharged on Bumex which he states he has been taking as prescribed. On arrival, vital signs stable.? He has a leukocytosis of 30,000 with 83% neutrophils and 2.7% immature granulocytes.? H/H 7.0/20.9%. Creat 2.87 (was 2.12 on discharge), BUN 45, Tj 134, K on arrival 2.9 repleted with 40meq KCl with improvement to 3.6. Glucose 189. Lactic acid 1.8.? Urine tox screen positive for cocaine only.? Urinalysis with negative leuks, negative nitrites, trace blood, positive glucose, and 4+ protein.? No bacteria.? CXR negative.? CT abdomen/pelvis without any acute intra-abdominal abnormality but showed cholelithiasis without acute cholecystitis with possible gallbladder cyst.? There is also mild to moderate prostatomegaly and mural thickening of the urinary bladder likely related to chronic urinary retention with trace free fluid in the pelvis of indeterminate cause.? Given patient's history and significant leukocytosis, has been treated empirically with 1 g IV ceftriaxone and has also been given ondansetron, 1/2 L IV LR and ketorolac. Hospital course:He presented with nausea, vomitting and abdominal pain. Work up revealed WBC of 30K, CT showed no acute finding, UA showed no evidence of UTI, given overwelming WBC and immuocompromised state. He was initiated on Zosyn, blood cultures thus far negative, over the course of hospitalization WBC has gradually trended sonny to 18K 05/24nex day and today 05/25 11K. He has no abdominal pain, nausea or vomitting anymore and is tolerating diet. Will treat emprically for presumed GI source of infection for 5 days with Agumentin and Flagyl. Of note he had acute on chronic anemia with no source of GIB Hematocrit dropped to 20, baseline is 24 and he was trasnsfused 2 units with hematocrit now stable over 2 days. Chronic issues including Nephrotic syndrome are otherwise stable and will resume usual meds. Time Spent with Patient Time attestation: Total time managing care of this patient today ____ minutes. Discharge coordination time: Greater than 30 minutes Quality: Safe Use of Opioids Does Pt have an Active Cancer Diagnosis on the Problem List?: No Quality: Stroke Does the patient have a stroke diagnosis?: No Physical Exam Vital Signs: Vital Signs: Last Vital Signs Temp 97.8 F 05/25/23 07:13 Pulse 77 05/25/23 07:13 Resp 18 05/25/23 07:13 BP 164/74 H 05/25/23 07:13 Pulse Ox 99 05/25/23 07:13 O2 Del Method Room Air 05/25/23 07:13 BMI result Body Mass Index 22.8 DS: Data Data Completed and Pending Completed studies during hospitalization [Text1]: Procedures Excision of Right Kidney, Percutaneous Approach, Diagnostic (01/31/23) Transfusion of Nonautologous Red Blood Cells into Peripheral Vein, Percutaneous Approach (04/18/23) Labs on day of discharge: Laboratory Results - last 24 hr 05/24/23 05/24/23 05/24/23 11:14 15:54 20:48 WBC RBC Hgb Hct MCV MCH MCHC RDW Plt Count MPV Absolute Nucleated RBC Nucleated RBC % (auto) Sodium Potassium Chloride Carbon Dioxide Anion Gap BUN Creatinine Estim Creat Clear Calc Estimated GFR POC Glucose 187 H 136 H 242 H Random Glucose Calcium 05/25/23 05/25/23 05/25/23 05:24 05:24 07:15 WBC 11.3 H RBC 2.92 L Hgb 8.0 L Hct 24.0 L MCV 82.2 MCH 27.4 MCHC 33.3 RDW 15.9 Plt Count 312 MPV 10.4 Absolute Nucleated RBC 0.000 Nucleated RBC % (auto) 0.0 Sodium 141 Potassium 3.5 Chloride 110 H Carbon Dioxide 22 Anion Gap 13 BUN 34 H Creatinine 2.23 H Estim Creat Clear Calc 30.1 Estimated GFR 31 POC Glucose 98 Random Glucose 135 H Calcium 8.1 L Preliminary micro results at discharge 05/23/23 13:56 Blood Culture - Preliminary Blood - Venous No growth after 24 hours. 05/23/23 13:56 Blood Culture - Preliminary Blood - Venous No growth after 24 hours. Discharge Plan Discharge Anticipated Discharge Date/Time: 05/25/23 09:09 Patient Disposition: Home, Self-Care Discharge Diagnosis: Abdominal pain, hypokalemia Referrals: Allison Etienne MD [Primary Care Provider] - 1 Week Discharge Medications: Continued ketorolac 0.5 % drops 1 drp ophthalmic (eye) TID prednisolone acetate 1 % drops,suspension 1 drp ophthalmic (eye) TID carvedilol 3.125 mg Tablet 3.125 mg PO BID Qty: 60 0RF Protocol: Hold for SBP/HR < HOLD for SBP < : 90 HOLD for HR < : 60 tamsulosin 0.4 mg capsule 0.4 mg PO DAILY diphenhydramine HCl [Benadryl] 25 mg capsule 25 mg PO BEDTIME ferrous sulfate 325 mg (65 mg iron) tablet 325 mg PO DAILY ziprasidone HCl [Geodon] 60 mg capsule 60 mg PO BID ramelteon 8 mg tablet 8 mg PO BEDTIME PRN (Reason: Insomnia) hydralazine 50 mg Tablet 50 mg PO TID Qty: 90 0RF Protocol: Hold for SBP< HOLD for SBP < : 90 bumetanide 2 mg tablet 2 mg PO BID Qty: 60 0RF melatonin 5 mg tablet 5 mg PO BEDTIME PRN (Reason: sleep) Qty: 30 0RF atorvastatin 80 mg tablet 80 mg PO DAILY gabapentin 100 mg capsule 200 mg PO BID Trulicity 1.5 mg/0.5 mL pen injector 1.5 mg subcut WE@0900 Lantus Solostar U-100 Insulin 100 unit/mL (3 mL) insulin pen 32 unit subcut BEDTIME insulin lispro [Humalog KwikPen Insulin] 100 unit/mL insulin pen 12 unit subcut TIDAC Diet: Advance to usual diet Activity on Discharge: As tolerated Stand Alone Forms: Patient Portal Discharge page Care Plan Goals: Full recovery from abdominal pain Health Concerns: abdominal pain now resolved Nephrotic syndrome chronic anemia Plan of Treatment: take Augmentin and Flagyl as recommended and follow up with your Doctor and your kidney Doctor in a week Assessment: as above
--- NOTE | 2023-05-25 09:06 | PM.EVENT ---
Event Note Date of Service: 05/25/23 Event Note: Addiction consult placed for patient Patient seen by plant operations vice president Please see note from 05/24/23 Time Spent With Patient Time: Total time managing care of this patient today ____ minutes.
--- NOTE | 2023-05-25 09:27 | MHC.CM.PN ---
Patient has been medically cleared for dc to home today, self care.
== END 2023-05-25 11:50 | disposition home or self-care (01) | DRG 392 ==
LOC: HO.ED 16:32 → HO.S3 21:58 → HO.EDOVER 05-24 13:39 → HO.S3 05-24 13:39
PROVIDERS: Admitting Provider Physician Assistant; Emergency Provider Emergency Medicine Emergency Medical Services; PCP Internal Medicine; Visit Provider Internal Medicine
DX: R11.2 Nausea with vomiting, unspecified (principal); I50.32 Chronic diastolic (congestive) heart failure; N17.9 Acute kidney failure, unspecified; R65.10 Systemic inflammatory response syndrome (SIRS) of non-infectious origin without acute organ dysfunction; G89.4 Chronic pain syndrome; E78.5 Hyperlipidemia, unspecified; I11.0 Hypertensive heart disease with heart failure; E11.21 Type 2 diabetes mellitus with diabetic nephropathy; D63.8 Anemia in other chronic diseases classified elsewhere; E86.1 Hypovolemia; F14.10 Cocaine abuse, uncomplicated; E11.65 Type 2 diabetes mellitus with hyperglycemia; E11.42 Type 2 diabetes mellitus with diabetic polyneuropathy; Z20.822 Contact with and (suspected) exposure to COVID-19; Z79.4 Long term (current) use of insulin; Z79.899 Other long term (current) drug therapy
CPT/HCPCS: 36415; 71046; 74176; 80048; 80053; 80307; 81001; 82947; 83605; 83690; 83735; 83880; 84132; 84484; 85025; 85027; 86850; 86900; 86901; 86923; 87040; 87635; 93005; 99285; J0696; J1885; J2405; J2543; J3370; J3371; P9016

== ENCOUNTER 2023-07-05 13:43 | Outpatient (AMB) | payer OTHER, SELFPAY ==
--- NOTE | 2023-07-05 13:47 | A.OFFVIS_ITS ---
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 Required: No Investigation Clerk: Investigation Clerk Present Accompanied by: Family/Other Allergies No Known Allergies [No Known Allergies*] Allergy (Verified 04/18/23 09:11) Medication List - Last Reconciled 07/05/23 by Aston Jason MD atorvastatin 80 mg PO DAILY bumetanide 2 mg PO BID carvedilol 3.125 mg See Protocol PO BID diphenhydramine HCl (Benadryl) 25 mg PO BEDTIME dulaglutide (Trulicity) 1.5 mg subcut WE@0900 ferrous sulfate 325 mg PO DAILY gabapentin 200 mg PO BID hydralazine 50 mg See Protocol PO TID insulin glargine (Lantus Solostar U-100 Insulin) 32 units subcut BEDTIME insulin lispro (Humalog KwikPen (U-100) Insulin) 12 units subcut TIDAC ketorolac 0.5% 1 drp ophthalmic (eye) TID melatonin 5 mg PO BEDTIME PRN metronidazole 500 mg PO BID prednisolone acetate 1% 1 drp ophthalmic (eye) TID ramelteon 8 mg PO BEDTIME PRN tamsulosin 0.4 mg PO DAILY ziprasidone HCl (Geodon) 60 mg PO BID HPI HPI Comments History of Present Illness Details Yao comes for follow-up after hospitalization for severe diastolic heart failure when he was noted to have grade 3 diastolic dysfunction severe pulmonary hypertension marked generalized anasarca and heart failure syndrome. He had to be extensively diuresed. Also has nephrotic syndrome. Patient now presents for follow-up. He presents here with his son. He has been doing well from cardiac perspective. He has remained without hospitalization. No leg edema, orthopnea, PND. His weight has remained stable. He has not had any ex ertional chest pain. He said his breathing also has improved significantly with exercise. He denies any palpitations, lightheadedness, syncope. Takes all his medications regularly. [facility] Medical History Anemia Anemia Anemia Chronic pain syndrome Depression Diabetic nephropathy Diabetic polyneuropathy Diastolic heart failure HLD (hyperlipidemia) HTN (hypertension) Nephrotic syndrome Pneumonia T2DM (type 2 diabetes mellitus) Vitamin D deficiency Surgical History Hx of colonoscopy Hx of rotator cuff surgery Status post biopsy of kidney Family History Father Colon cancer Mother History of kidney problems T2DM (type 2 diabetes mellitus) Sister T2DM (type 2 diabetes mellitus) Social History Household Members: None Housing: Apartment Do you presently have visiting nurse or other home services: No Alcohol intake: never Patient Tobacco Use Status: Never used Tobacco Substance Use Type: Crack/Cocaine Advance Directives Date on File: 04/28/23 service: No Current occupational status: disabled Current occupation: right handed Review of Systems Const Denies chills, Denies fatigue, Denies fever(s), Denies frequent falls, Denies weakness, Denies weight gain and Denies weight loss ENT Denies dizziness Card Denies chest pain, Denies leg edema, Denies lightheadedness, Denies palpitations, Denies dyspnea, Denies dyspnea on exertion, Denies orthopnea and Denies other (loss of consciousness) Resp Denies cough, Denies dyspnea and Denies dyspnea on exertion GI Denies hematochezia and Denies change in stool character Musc Denies abnormal gait, Denies muscle weakness, Denies numbness, Denies radiating pain into limb and Denies tingling Neuro Denies abnormal gait, Denies dizziness, Denies frequent falls, Denies numbness, Denies tingling and Denies weakness Endo Denies fatigue and Denies palpitations Physical Exam Vital Signs: Last Vital Signs Pulse 79 07/05/23 13:48 BP 144/86 H 07/05/23 13:48 BMI result Body Mass Index 24.4 Const General: cooperative, comfortable, no acute distress, alert and awake Nutritional Appearance: average body habitus Orientation/consciousness: patient oriented x3 Limitations: no limitations Neck Neck: Yes trachea midline, Yes supple and Yes no JVD Resp Effort & Inspection: normal respiratory effort Auscultation: clear to auscultation bilaterally Cardio Jugular venous distension: no JVD Palpation: normal PMI Rate: regular rate Rhythm: regular rhythm Heart sounds: S1 normal heart sound present, S2 normal heart sound present, no click, no gallops, no murmurs and no rubs GI Auscultation: normal bowel sounds Skin General skin exam: no rashes or lesions noted Neuro General: patient oriented x3 and no focal motor deficits Extrem General: Yes no clubbing, cyanosis or edema Assessment & Plan Assessment & Plan (1) (HFpEF) heart failure with preserved ejection fraction: Code(s): I50.30 - Unspecified diastolic (congestive) heart failure Plan: Heart failure preserved ejection fraction with advanced diastolic dysfunction this middle-aged man. There is no evidence of cardiac amyloidosis by nuclear imaging. Is clinically appearing to be euvolemic and well compensated. Blood pressure is not well optimized increase hydralazine to 100 mg b.i.d. and carvedilol to 6.25 mg b.i.d.. Continue current diuretic dose. Heart failure management was discussed again. Daily weight monitoring avoidance of salt loading was discussed. Additional diuretics as need be. Continue to participate in physical activity as tolerated. Will suggest of vasodilating myocardial perfusion imaging to rule out ischemia. Obtain blood work today. Follow up in the clinic otherwise in 6 months time, sooner p.r.n.. Thank you for allowing me to partake in his care Orders: Orders Basic Metabolic Panel Today I50.30 - Unspecified diastolic (congestive) heart failure B Type Natriuretic Peptide Today I50.30 - Unspecified diastolic (congestive) heart failure CA lexiscan stress w nedra Today I50.30 - Unspecified diastolic (congestive) heart failure Medications: New carvedilol (Coreg) must administer with a meal/food 6.25 mg PO BID 60 tabs 5RF hydralazine 100 mg PO BID 60 tabs 5RF Changed From metronidazole 500 mg PO BID 9 tabs 0RF To metronidazole 500 mg PO BID Discontinued carvedilol Discontinued Reason: Doctor's Order 3.125 mg See Protocol PO BID 60 tabs 0RF furosemide 20 mg PO BID 60 tabs 0RF hydralazine Discontinued Reason: Doctor's Order 50 mg See Protocol PO TID 90 tabs 0RF Coding Level of Care Code Est Pt Level 4 (90243) Diagnoses (HFpEF) heart failure with preserved ejection fraction I50.30
[2023-07-05 13:48] VITALS: BP 144/86; PULSE 79; BMI 24.4
== END 2023-07-05 14:06 | disposition home or self-care (01) ==
PROVIDERS: PCP Internal Medicine; Referring Provider Internal Medicine; Visit Provider Internal Medicine Cardiovascular Disease
DX: I50.30 Unspecified diastolic (congestive) heart failure (principal)
CPT/HCPCS: 99214

== ENCOUNTER → 2023-07-05 13:43 | Outpatient (BNVA) | payer OTHER, SELFPAY | PROVIDERS: PCP Internal Medicine; Referring Provider Internal Medicine; Visit Provider Internal Medicine Cardiovascular Disease | DX: I50.30 Unspecified diastolic (congestive) heart failure (principal); Z79.899 Other long term (current) drug therapy | CPT/HCPCS: 99212 ==

== ENCOUNTER 2023-09-15 08:42 | Emergency (ER) | payer OTHER, SELFPAY ==
[2023-09-15 08:45] VITALS: BP 218/93; PULSE 78; RESP 18; O2SAT 100; BMI 24.8
--- OUTSIDE RECORDS SUMMARY | 2023-09-15 09:03 | XMS_ITS | Continuity of Care Document ---
Author Name Unknown Organization [facility] Address [address] [place] [address]- Care Team Providers Care Saw Runner Name Role Phone Cecille York DO Primary Care Physician Encounter [facility] [place] Date(s): 06/21/23 - 07/21/23 [facility] [address] [place] [id number] Attending Physician: Gordo Maria Admitting Physician: AdmtrGordo Referring Physician: Admtr ArCharisma Allergies, Adverse Reactions, Alerts No Known Allergies Medications Actos 45 mg oral tablet 1 tablet = 45 mg, By Mouth, Daily, 0 Refills, Maintenance Start Date: 09/29/11 Status: Ordered Aspir 81 Oral Enteric Coated Tablet 1 tablet = 81 mg, By Mouth, Daily, # 30 tablet, 0 Refills, Maintenance, 05/21/14 15:38:51, EC Tablet Start Date: 05/21/14 Status: Ordered clonazepam 2 mg oral tablet 1 tablet = 2 mg, By Mouth, 2 times a day, 0 Refills, Maintenance, 05/21/14 15:38:35, Tablet Start Date: 05/21/14 Status: Ordered Colace sodium 100 mg oral capsule 1 capsule = 100 mg, By Mouth, 2 times a day, PRN for constipation, # 20 capsule, 0 Refills, Maintenance, 05/24/14 14:47:47, Capsule Start Date: 05/24/14 Status: Ordered Freestyle Lite Test Strips See Instructions, # 200 each, Tot. Refills 5, Maintenance, use as directed for Type 2 Diabetes Mellitus, 06/08/22 14:45:00 EDT, Supply, 160, cm, 06/08/22 14:02:00 EDT, Height Start Date: 06/08/22 Stop Date: 07/08/22 Status: Ordered gabapentin 100 mg oral capsule 2 capsule = 200 mg, By Mouth, 3 times a day, # 240 capsule, 0 Refills, Maintenance, 05/24/14 14:47:33, Capsule Start Date: 05/24/14 Status: Ordered ibuprofen 600 mg oral tablet 1 tablet = 600 mg, By Mouth, 3 times a day, # 90 tablet, 0 Refills, Maintenance, 05/24/14 14:47:14 Start Date: 05/24/14 Status: Ordered Lantus 100 u/ml subcutaneous solution = 50 units, Subcutaneous Injection, Daily, Needs to be seen in office for further refills. rotate injection sites, # 15 mL, 0 Refills, Maintenance, 06/07/23 13:20:00 EDT, Solution, [id number], Partial fill upon patient request if the prescri... Start Date: 06/07/23 Status: Ordered metformin 1000 mg oral tablet 1 tablet = 1,000 mg, By Mouth, 2 times a day, 0 Refills, Maintenance Start Date: 09/29/11 Status: Ordered NovoLOG FlexPen 100 units/mL subcutaneous solution See Instructions, Subcutaneous Injection, Use as directed for Diabetes mellitus type 2 three time aday before meals based on below scale. Blood sugar Novolog dose 100-149 take 10 units 150-199 take 12 units 200-249 take 14 units... Start Date: 06/08/22 Stop Date: 02/28/24 Status: Ordered Trulicity Pen 3 mg/0.5 mL subcutaneous solution 0.5 mL = 3 mg, Subcutaneous Injection, Every week, rotate injection sites, # 2 mL, 6 Refills, Maintenance, 06/08/22 14:45:00 EDT, Solution, [id number], Partial fill upon patient request if the prescription is for a schedule II opioid drug., 16... Start Date: 06/08/22 Status: Ordered Patient Care team information Care Team Personnel Name: Jose L Rosario MD Position: [facility] Renal MD Member Role: Lifetime Consulting Physician Address: Address: [address] [place] [address], [address] [address]- Name: Cecille York DO Position: S RN Member Role: PCP Address: Address: [address] [place] [id number] Care Team Related Persons Name: BERNARDO AVENDANO Address: home [address] [address] Name: MAYRA ALCALA Address: home [address] [place] [address]
--- OUTSIDE RECORDS SUMMARY | 2023-09-15 09:03 | XMS_ITS | Continuity of Care Document ---
Author Name Unknown Organization [facility] Address [address] [place] [address]- Care Team Providers Care Locker Room Clerk Name Role Phone Cecille York DO Primary Care Physician [phone] Encounter [facility] [place] Date(s): 05/13/23 - 07/21/23 [facility] [address] [place] [id number] Attending Physician: Tika Dickson MD Admitting Physician: [...] Personnel Name: Jose L Rosario MD Position: Sid Renal MD Member Role: Lifetime Consulting Physician Address: Address: [address] [place] [address], [address] [place] [address]- Name: Cecille York DO Position: ELISHA RN Member Role: PCP Address: Address: [address] [place] [id number] Care Team Related Persons Name: BERNARDO AVENDANO Address: home [address] [address] Name: MAYRA ALCALA Address: home [address] [place] [address]
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
[2023-09-15] MEDS: Diphth,Pertus(ACell),Tet Adult 0.5 ML SYRINGE IM (09:44)
[2023-09-15] MEDS: hydrALAZINE HCl 50 MG TABLET 100 MG PO (09:45)
[2023-09-15] MEDS: carvediloL 6.25 MG TABLET PO (09:45)
[2023-09-15 09:47] VITALS: BP 192/88; PULSE 83; RESP 18; O2SAT 98
== END 2023-09-15 10:18 | disposition home or self-care (01) ==
PROVIDERS: Emergency Provider Emergency Medicine; PCP Internal Medicine
DX: S50.812A Abrasion of left forearm, initial encounter (principal); S50.811A Abrasion of right forearm, initial encounter; T22.311A Burn of third degree of right forearm, initial encounter; T22.312A Burn of third degree of left forearm, initial encounter; T31.0 Burns involving less than 10% of body surface; X08.8XXA Exposure to other specified smoke, fire and flames, initial encounter; Y93.9 Activity, unspecified; Y92.9 Unspecified place or not applicable; Y99.9 Unspecified external cause status; Z79.899 Other long term (current) drug therapy; Z23 Encounter for immunization
CPT/HCPCS: 90471; 90715; 99283; 99284

== ENCOUNTER 2023-10-14 10:42 | Inpatient (IN) | payer OTHER, SELFPAY ==
[2023-10-14] VITALS (7 sets, daily range): BP systolic 160–192; BP diastolic 71–86; PULSE 69–81; RESP 16–20; TEMP 36.1–37.3; O2SAT 98–99; BMI 29.0
--- NOTE | ~2023-10-14 | XR_ITS ---
EXAMINATION: XR CHEST CLINICAL INFORMATION: Reason for Exam dyspnea COMPARISON: Chest radiograph [id number] TECHNIQUE: One view of the chest FINDINGS: Lines and tubes: EKG leads overlie the patient. Clear lungs. No pleural effusion. No pneumothorax. Unchanged cardiomediastinal silhouette. Stable chronic posttraumatic fracture deformity of the right distal clavicle. XR/XR chest 1V IMPRESSION: * Clear lungs.
--- NOTE | 2023-10-14 10:56 | ED_ITS ---
HPI - General Adult General Chief complaint: Dyspnea Stated complaint: water in abd/ leg? Time Seen by Provider: 10/14/23 11:45 Source: patient Mode of arrival: ambulatory Limitations: no limitations History of Present Illness HPI narrative: 58 yo male with PMH of chronic anemia baseline hemoglobin 8.0, HTN, HLD, diabetes, chronic pain, cocaine abuse, nephrotic syndrome, dCHF EF 50%, depression here with c/o increased weight gain unsure how much weight up almost 30lbs since June, LE edema, swollen abdomen, GLOVER and cannot walk up his stairs. He denies pain. Denies black or bloody stools. States he always takes his medications and does not eat a lot of salt. MD complaint: edema, GLOVER Onset (ago): month(s) (1) Location: chest, abdomen, left, right and lower extremity Radiation: non-radiation Severity: moderate Relieving factors: rest Exacerbating factors: movement Associated symptoms: other (weight gain, edema, GLOVER, fatigue) Treatments prior to arrival: none Related Data Home Medications Medication Instructions Recorded Confirmed dulaglutide 1.5 mg/0.5 mL 1.5 mg subcut WE@0900 09/25/20 07/05/23 subcutaneous pen injector (Trulicity) insulin glargine 100 unit/mL (3 32 unit subcut BEDTIME 12/22/20 07/05/23 mL) subcutaneous pen (Lantus Solostar U-100 Insulin) insulin lispro 100 unit/mL 12 unit subcut TIDAC 12/22/20 07/05/23 subcutaneous pen (Humalog KwikPen (U-100) Insulin) ketorolac 0.5 % eye drops 1 drp ophthalmic (eye) TID 01/31/23 07/05/23 prednisolone acetate 1 % eye 1 drp ophthalmic (eye) TID 01/31/23 07/05/23 drops,suspension diphenhydramine HCl 25 mg capsule 25 mg PO BEDTIME 04/18/23 07/05/23 (Benadryl) ferrous sulfate 325 mg (65 mg 325 mg PO DAILY 04/18/23 07/05/23 iron) tablet ramelteon 8 mg tablet 8 mg PO BEDTIME PRN Insomnia 04/18/23 07/05/23 tamsulosin 0.4 mg capsule 0.4 mg PO DAILY 04/18/23 07/05/23 ziprasidone HCl 60 mg capsule 60 mg PO BID 04/18/23 07/05/23 (Sameul) atorvastatin 80 mg tablet 80 mg PO DAILY 05/23/23 07/05/23 gabapentin 100 mg capsule 200 mg PO BID 05/23/23 07/05/23 metronidazole 500 mg tablet 500 mg PO BID 07/05/23 07/05/23 Previous Rx's Medication Instructions Recorded bumetanide 2 mg tablet 2 mg PO BID #60 tabs 04/27/23 melatonin 5 mg tablet 5 mg PO BEDTIME PRN sleep #30 tabs 04/27/23 carvedilol 6.25 mg tablet (Coreg) 6.25 mg PO BID #60 tabs 07/05/23 hydralazine 100 mg tablet 100 mg PO BID #60 tabs 07/05/23 Allergies Allergy/AdvReac Type Severity Reaction Status Date / Time No Known Allergies Allergy Verified 04/18/23 09:11 [No Known Allergies*] Review of Systems 2 Review of Systems: Constitutional : No Fever, No Chills, pos fatigue ENT/Mouth : No sore throat, No Rhinorrhea, No Swallowing Difficulty Eyes: No Eye Pain, No Swelling, No Redness Cardiovascular : No Chest Pain, positive SOB, pos Orthopnea, positive Edema Respiratory : No Cough, No Sputum, No Wheezing, positive dyspnea Gastrointestinal : No Nausea, No Vomiting, No Diarrhea, No abdominal Pain, No Hematochezia, No Melena Genitourinary : No Dysuria, No Urinary Frequency, No Hematuria Musculoskeletal : No joint pain, No Myalgias Skin : No Skin Lesions, No rash Neuro : No Weakness, No Numbness, No Dizziness, No Headache Psych : No Anxiety/Panic, No Depression Heme/Lymph: No Bruising, No Lymphadenopathy Endocrine : No Polyuria, No Polydipsia All other systems reviewed and are negative PMFSH Past Medical History Attestation statement: The following information was validated with the patient. Source: old records reviewed Medical History Diastolic heart failure Anemia Pneumonia Diabetic nephropathy Anemia Nephrotic syndrome Anemia Chronic pain syndrome Diabetic polyneuropathy Vitamin D deficiency Depression HTN (hypertension) HLD (hyperlipidemia) T2DM (type 2 diabetes mellitus) Surgical History Status post biopsy of kidney Hx of colonoscopy Hx of rotator cuff surgery Family History Family History Father Colon cancer Mother History of kidney problems T2DM (type 2 diabetes mellitus) Sister T2DM (type 2 diabetes mellitus) Social History Household Members: None Housing: Apartment Do you presently have visiting nurse or other home services: No Alcohol intake: never Patient Tobacco Use Status: Never used Tobacco Substance Use Type: Crack/Cocaine Advance Directives: Yes Advance Directives on File: Yes Advance Directives Date on File: 04/28/23 service: No Current occupational status: disabled Current occupation: right handed Physical Exam ED Vital Signs: Vital Signs - 24 hr 10/14/23 10:56 Temperature 99.1 F Pulse Rate 81 Respiratory Rate 20 Blood Pressure 188/71 H Pulse Oximetry 98 Oxygen Delivery Method Room Air BMI result Body Mass Index 29.0 Appearance: Alert. Oriented X3. Mild acute distress. Eyes: Pupils equal, round and reactive to light. ENT: Pharynx normal. Neck: Normal inspection. Neck supple. CVS: Normal heart rate and rhythm. Pulses normal. Respiratory: Mild respiratory distress - tachypnea Breath sounds rales at both bases and diminished Abdomen: Soft and nontender. Distended with ascites Skin: Skin warm and dry. pale skin color. Normal skin turgor. Extremities: 2+ pitting lower extremity edema. Neuro: Oriented X 3. No motor deficit. No sensory deficit. Course Course Course Narrative: This is a rapid medical exam: Additional HPI, ROS, PE not included below will be deferred to primary provider. Patient is a 58-year-old Nepali speaking male with history of HF with preserved EF, diabetic nephropathy, anemia, nephrotic syndrome, HTN, HLD, T2DM presenting to the ED with complaint of dyspnea on exertion, edema to legs and abdomen for the past month. Denies fevers. Denies recent medication changes. Patient is pale, hypertensive in triage. Plan: EKG, CXR, labs, UA Medical Decision Making Medical Decision Making MDM Narrative: 58 yo male with PMH of chronic anemia baseline hemoglobin 8.0, HTN, HLD, diabetes, chronic pain, cocaine abuse, nephrotic syndrome, dCHF EF 50%, depression here with at least 30lb weight gain since June, GLOVER, now with worsening anemia hx of same in past denies GIB symptoms, no CP but GLOVER and orthopnea with ascites and LE edema. At this time will need labs, transfusion with IV bumex before and after, admission for further management and diuresis. He reports med and diet compliance. Differential Diagnosis Differential Diagnoses: The differential diagnosis associated with the presentation includes anemia, CHF, pulm edema Admission/Observation Consideration of admission/observation: Escalation of care including admission/observation considered admit for diuresis, transfusion Consult Healthcare Provider Management of the patient was discussed with: Hospitalist (will admit) Lab Data MDM Lab Attestation statement: I reviewed the patient's lab results. 10/14/23 11:14 10/14/23 11:14 Labs: Lab Results 10/14/23 Range/Units 11:14 WBC 11.6 H (4.8-10.8) X10*3/uL RBC 2.40 L (4.60-5.80) X10*6/uL Hgb 6.2 L* D (14.0-18.0) g/dl Hct 20.3 L* (42.0-52.0) % MCV 84.6 (80.0-98.0) fL MCH 25.8 L (27.0-33.0) pg MCHC 30.5 L (31.0-36.0) g/dl RDW 15.5 (11.0-16.0) % Plt Count 257 (160-400) X10*3/uL MPV 9.6 (9.4-12.4) fL Immature Gran % (Auto) 0.3 (0.0-0.4) % Neut % (Auto) 77.2 H (45-73) % Lymph % (Auto) 13.1 L (20-40) % [place] % (Auto) 7.2 (2-11) % Eos % (Auto) 1.9 (0-4) % Baso % (Auto) 0.3 (0-2) % Lymph # (Auto) 1.5 (1.2-4.9) X10*3/uL [place] # (Auto) 0.8 (0.1-1.2) X10*3/uL Eos # (Auto) 0.2 (0.0-0.4) X10*3/uL Baso # (Auto) 0.0 (0.0-0.2) X10*3/uL Abs Immat Gran (auto) 0.04 H (0.00-0.03) X10*3/uL Absolute Neuts (auto) 8.9 H (2.0-8.3) x10*3/uL Absolute Nucleated RBC 0.000 (0.0-0.012) X10*3/uL Nucleated RBC % (auto) 0.0 (0.0-0.2) /100WBC PT 14.8 H (11.1-13.3) SEC INR 1.2 H (0.9-1.1) Sodium 138 (135-145) mmol/L Potassium 3.9 (3.3-5.1) mmol/L Chloride 111 H (96-108) mmol/L Carbon Dioxide 19 L (22-29) mmol/L Anion Gap 12 (12-20) BUN 38 H (9-16) mg/dL Creatinine 3.34 H (0.5-1.4) mg/dL Estim Creat Clear Calc 22.2 Estimated GFR 19 Random Glucose 204 H (60-115) mg/dL Calcium 7.9 L (8.4-10.2) mg/dL Total Bilirubin 0.2 (0.0-1.0) mg/dL AST 28 (5-37) U/L ALT 19 (0-40) U/L Alkaline Phosphatase 136 H (39-117) U/L Troponin I High Sens 9.4 D (<3.5-35.0) ng/L B-Natriuretic Peptide 2310 H (<100) pg/mL Total Protein 6.9 (6.5-8.0) g/dL Albumin 2.4 L (3.5-5.0) g/dL Independent Interpretation I performed an independent interpretation of an: EKG and Plain X-Ray Interpretation: Rate: 82 Rhythm: NSR [place]: normal Normal P waves. Normal DICK. Normal QRS complex. ST T wave : no KAYODE, nonspecific ST T wave changes qTC: normal prior studies: no acute ischemia The study has been interpreted contemporaneously by me. . Radiology Impression Discussion of test interpretation with radiology: I have reviewed the radiologist's reading. Independent Historian Clinical information obtained from an independent historian. History obtained from or confirmed by: Other (son) External Record Review External record reviewed: Inpatient record Critical Care Time Critical Care Time Critical Care Time: Yes Total Critical Care Time: 45 Attestation: transfusion, IV bumex, review of records, admission I attest to this time spent taking care of the patient Discharge Plan Discharge Clinical Impression: Acute on chronic anemia, Acute kidney injury superimposed on chronic kidney disease Congestive heart failure Qualifiers: Heart failure type: diastolic Heart failure chronicity: acute on chronic Q ualified Code(s): I50.33 - Acute on chronic diastolic (congestive) heart failure Patient Disposition: Admitted As Inpatient Prescriptions: No Action ketorolac 0.5 % drops 1 drp ophthalmic (eye) TID prednisolone acetate 1 % drops,suspension 1 drp ophthalmic (eye) TID tamsulosin 0.4 mg capsule 0.4 mg PO DAILY diphenhydramine HCl [Benadryl] 25 mg capsule 25 mg PO BEDTIME ferrous sulfate 325 mg (65 mg iron) tablet 325 mg PO DAILY ziprasidone HCl [Geodon] 60 mg capsule 60 mg PO BID ramelteon 8 mg tablet 8 mg PO BEDTIME PRN (Reason: Insomnia) bumetanide 2 mg tablet 2 mg PO BID Qty: 60 0RF melatonin 5 mg tablet 5 mg PO BEDTIME PRN (Reason: sleep) Qty: 30 0RF atorvastatin 80 mg tablet 80 mg PO DAILY gabapentin 100 mg capsule 200 mg PO BID Trulicity 1.5 mg/0.5 mL pen injector 1.5 mg subcut WE@0900 Lantus Solostar U-100 Insulin 100 unit/mL (3 mL) insulin pen 32 unit subcut BEDTIME insulin lispro [Humalog KwikPen Insulin] 100 unit/mL insulin pen 12 unit subcut TIDAC metronidazole 500 mg tablet 500 mg PO BID carvedilol [Coreg] 6.25 mg tablet 6.25 mg PO BID Qty: 60 5RF Rx Instructions: must administer with a meal/food hydralazine 100 mg tablet 100 mg PO BID Qty: 60 5RF
--- NOTE | 2023-10-14 10:59 | ECG_ITS ---
Test Reason : DYSPNEA Blood Pressure : / mmHG Vent. Rate : 082 BPM Atrial Rate : 082 BPM P-R Int : 146 ms QRS Dur : 076 ms QT Int : 390 ms P-R-T Axes : 051 013 -02 degrees QTc Int : 455 ms Normal sinus rhythm Nonspecific ST abnormality Abnormal ECG When compared with ECG of 23-MAY-2023 09:28, No significant change was found Referred By: Shaina Fowler Electronically Signed By:SHONDA HILL MD
[2023-10-14 11:18] LABS: MANUAL DIFF FLAG NO
[2023-10-14 11:25] LABS: Basophils Percent Auto 0.3 % (0-2); Eosinophils Absolute Auto 0.2 X10*3/uL (0.0-0.4); Eosinophils Percent Auto 1.9 % (0-4); Imm Gran Abs Auto 0.04 X10*3/uL (0.00-0.03); Imm Gran Pct Auto 0.3 % (0.0-0.4); Lymphocytes Absolute Auto 1.5 X10*3/uL (1.2-4.9); Lymphocytes Percent Auto 13.1 % (20-40); Mean Corpuscular HGB Conc 30.5 g/dl (31.0-36.0); Mean Corpuscular Hemoglobin 25.8 pg (27.0-33.0); Mean Corpuscular Volume 84.6 fL (80.0-98.0); Mean Platelet Volume 9.6 fL (9.4-12.4); Monocytes Absolute Auto 0.8 X10*3/uL (0.1-1.2); Monocytes Percent Auto 7.2 % (2-11); Neutrophils Absolute Auto 8.9 x10*3/uL (2.0-8.3); Neutrophils Percent Auto 77.2 % (45-73); Platelet Count 257 X10*3/uL (160-400); Red Cell Distribution Width 15.5 % (11.0-16.0); White Blood Count 11.6 X10*3/uL (4.8-10.8)
[2023-10-14 11:28] LABS: Hemoglobin 6.2 g/dl (14.0-18.0); INTERNATIONAL NORM RATIO 1.2 (0.9-1.1); Prothrombin Time 14.8 SEC (11.1-13.3)
[2023-10-14 11:29] LABS: Hematocrit 20.3 % (42.0-52.0)
[2023-10-14 11:35] LABS: Alanine Aminotransferase 19 U/L (0-40); Albumin Level 2.4 g/dL (3.5-5.0); Alkaline Phosphatase 136 U/L (39-117); Anion Gap 12 (12-20); Aspartate Amino Transferase 28 U/L (5-37); Bilirubin Total 0.2 mg/dL (0.0-1.0); Blood Urea Nitrogen 38 mg/dL (9-16); Calcium 7.9 mg/dL (8.4-10.2); Carbon Dioxide 19 mmol/L (22-29); Chloride 111 mmol/L (96-108); Creatinine Clr Calc Pharmacy 22.2; Estimated Glomerular Filt Rate 19; Glucose Random 204 mg/dL (60-115); Potassium 3.9 mmol/L (3.3-5.1); Sodium 138 mmol/L (135-145); Total Protein 6.9 g/dL (6.5-8.0)
[2023-10-14 11:41] LABS: B Type Natriuretic Peptide 2310 pg/mL (<100)
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
[2023-10-14 12:13] LABS: Troponin-I High Sensitivity 9.4 ng/L (<3.5-35.0)
[2023-10-14] MEDS: Acetaminophen 325 MG TABLET 650 MG PO (12:57)
[2023-10-14] MEDS: Bumetanide 1 MG/4 ML VIAL IVPUSH (12:59)
[2023-10-14] MEDS: diphenhydrAMINE HCL 50 MG/ML VIAL 25 MG IVPUSH (13:05)
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
--- NOTE | 2023-10-14 13:51 | PHA.MEDREC ---
Pharmacy Consult ? Medication Reconciliation Pharmacy has completed the medication reconciliation. Spoke to patient, and sister who is MEDICAL OFFICE TECHNOLOGY INSTRUCTOR. PT is no longer on eye drops. Lantus and humalog doses have changed, however sister states he refuses lantus since it bottoms him out . Pt also had increase in hydralazine and coreg Kurt
--- NOTE | 2023-10-14 14:08 | PC.NURSE ---
blood infusion started. VSS. pitting edema +2 lower extrem. PER DO give bumex after unit of blood or during unit is pt is short of breath. [facility]. abdomen firm, distended, non tender
[2023-10-14 14:31] LABS: Appearance Urine Clear; Color Urine Yellow; Glucose Urine UA 500 mg/dL (Negative); Leukocyte Esterase Urine Small (1+) (Negative); Nitrite Urine Negative (Negative); UMIC TRIGGER UACC YES; Urine Blood Trace (Negative); Urine Ketones Negative (Negative); Urine Protein 300 (3+) mg/dL (Neg-Trace)
[2023-10-14 14:37] LABS: Bacteria Urine None Seen (None Seen); UACC Culture Trigger YES; WBC Urine >50 /HPF (0-5)
[2023-10-14 14:43] LABS: Creatinine Urine 28.81 mg/dL
[2023-10-14 14:45] LABS: Amphetamine Screen Urine Not Detected (Not Detect); Barbiturates, Urine Not Detected (Not Detect); Benzodiazepines Screen Urine Not Detected (Not Detect); Cannabinoid Screen Urine Not Detected (Not Detect); Cocaine Screen Urine POSITIVE (Not Detect); Fentanyl, urine Not Detected (Not Detect); Opiate Screen Urine Not Detected (Not Detect); Phencyclidine Screen Urine Not Detected (Not Detect)
[2023-10-14 14:46] LABS: Estimated Average Glucose 200 mg/dL; Hemoglobin A1c % 8.6 % (<6.0)
--- NOTE | 2023-10-14 15:48 | PM.EVENT ---
Event Note Date of Service: 10/14/23 Event Note: Renal Medicine Thank you for the consult Patient well known to us with biopsy proven Diabetic Nephropathy and TMA presenting with hypervolemia, KWAME, anemia and wounds. KWAME likely due to compromise in renal perfusion with resultant tubular injury. DDX- Progression of renal disease. Has nephrotic range proteinuria. U tox pending. Started on bumex 2mg IV bid. May need bumex infusion. Wound care to see. Ordered PTH/Phos levels. May need wound biopsy to R/O calciphylaxis. Shall follow along
--- NOTE | 2023-10-14 15:56 | PC.NURSE ---
per DO, bumex is held until post transfusion
[2023-10-14 16:17] LABS: Osmolality, Serum 295 mosm/kg (281-305)
--- NOTE | 2023-10-14 17:10 | PC.NURSE ---
transfusion complete. no reactions noted throughout infusion, pt remained afebrile. LSCB. post infusion bumex given per PA order for 2mg.
[2023-10-14] MEDS: Heparin Sodium,Porcine 5,000 UNIT/ML VIAL 5000 UNIT SUBCUT (17:12)
[2023-10-14] MEDS: Bumetanide 1 MG/4 ML VIAL 2 MG IVPUSH (17:14)
[2023-10-14] MEDS: 0.9 % Sodium Chloride Flush 3 ML SYRINGE IVFLUSH ×2 (17:14→21:23)
[2023-10-14 17:29] LABS: Glucose, Whole Blood 143 mg/dL (60-115)
[2023-10-14 18:38] LABS: MANUAL DIFF FLAG NO
[2023-10-14 18:42] LABS: Basophils Absolute Auto 0.1 X10*3/uL (0.0-0.2); Basophils Percent Auto 0.5 % (0-2); Eosinophils Absolute Auto 0.4 X10*3/uL (0.0-0.4); Eosinophils Percent Auto 3.9 % (0-4); Hematocrit 22.8 % (42.0-52.0); Hemoglobin 7.3 g/dl (14.0-18.0); Imm Gran Abs Auto 0.04 X10*3/uL (0.00-0.03); Imm Gran Pct Auto 0.4 % (0.0-0.4); Lymphocytes Absolute Auto 1.8 X10*3/uL (1.2-4.9); Lymphocytes Percent Auto 16.9 % (20-40); Mean Corpuscular Hemoglobin 27.2 pg (27.0-33.0); Mean Corpuscular Volume 85.1 fL (80.0-98.0); Mean Platelet Volume 9.4 fL (9.4-12.4); Monocytes Percent Auto 9.1 % (2-11); Neutrophils Absolute Auto 7.6 x10*3/uL (2.0-8.3); Neutrophils Percent Auto 69.2 % (45-73); Platelet Count 250 X10*3/uL (160-400); Red Blood Count 2.68 X10*6/uL (4.60-5.80); Red Cell Distribution Width 15.6 % (11.0-16.0); White Blood Count 10.9 X10*3/uL (4.8-10.8)
--- NOTE | 2023-10-14 20:06 | PC.NURSE ---
report given to floor
[2023-10-14 21:11] LABS: Glucose, Whole Blood 217 mg/dL (60-115)
[2023-10-14] MEDS: hydrALAZINE HCl 50 MG TABLET 100 MG PO (21:22)
[2023-10-14] MEDS: Insulin Lispro 100 UNIT/ML 3 ML VIAL SUBCUT (21:22)
[2023-10-14] MEDS: carvediloL 6.25 MG TABLET PO (21:23)
[2023-10-14] MEDS: Ziprasidone 60 MG CAPSULE PO (21:23)
[2023-10-14] MEDS: Gabapentin 100 MG CAPSULE 200 MG PO (21:23)
[2023-10-14] MEDS: diphenhydrAMINE HCL 25 MG CAPSULE PO (21:23)
[2023-10-15] VITALS (7 sets, daily range): BP systolic 166–203; BP diastolic 69–93; PULSE 74–79; RESP 16–18; TEMP 35.9–36.9; O2SAT 97–100
[2023-10-15] MEDS: Heparin Sodium,Porcine 5,000 UNIT/ML VIAL 5000 UNIT SUBCUT ×2 (01:20→15:46)
[2023-10-15 06:43] LABS: MANUAL DIFF FLAG NO
[2023-10-15 06:53] LABS: Basophils Absolute Auto 0.1 X10*3/uL (0.0-0.2); Basophils Percent Auto 0.6 % (0-2); Eosinophils Absolute Auto 0.4 X10*3/uL (0.0-0.4); Eosinophils Percent Auto 4.5 % (0-4); Imm Gran Abs Auto 0.03 X10*3/uL (0.00-0.03); Imm Gran Pct Auto 0.4 % (0.0-0.4); Lymphocytes Absolute Auto 1.7 X10*3/uL (1.2-4.9); Lymphocytes Percent Auto 20.7 % (20-40); Mean Corpuscular HGB Conc 31.6 g/dl (31.0-36.0); Mean Corpuscular Hemoglobin 26.8 pg (27.0-33.0); Mean Platelet Volume 10.5 fL (9.4-12.4); Monocytes Absolute Auto 0.8 X10*3/uL (0.1-1.2); Monocytes Percent Auto 9.1 % (2-11); Neutrophils Absolute Auto 5.3 x10*3/uL (2.0-8.3); Neutrophils Percent Auto 64.7 % (45-73); Platelet Count 252 X10*3/uL (160-400); Red Blood Count 2.46 X10*6/uL (4.60-5.80); Red Cell Distribution Width 15.5 % (11.0-16.0); White Blood Count 8.2 X10*3/uL (4.8-10.8)
[2023-10-15 07:14] LABS: B Type Natriuretic Peptide 1695 pg/mL (<100)
[2023-10-15 07:16] LABS: Phosphorus 4.2 mg/dL (2.7-4.5)
[2023-10-15 07:17] LABS: Anion Gap 11 (12-20); Blood Urea Nitrogen 44 mg/dL (9-16); Calcium 7.9 mg/dL (8.4-10.2); Carbon Dioxide 20 mmol/L (22-29); Chloride 111 mmol/L (96-108); Creatinine Clr Calc Pharmacy 22.8; Estimated Glomerular Filt Rate 20; Glucose Random 161 mg/dL (60-115); Potassium 3.9 mmol/L (3.3-5.1); Sodium 138 mmol/L (135-145)
[2023-10-15 07:34] LABS: Hematocrit 20.9 % (42.0-52.0); Hemoglobin 6.6 g/dl (14.0-18.0)
[2023-10-15 07:45] LABS: Glucose, Whole Blood 134 mg/dL (60-115)
--- NOTE | 2023-10-15 08:10 | P.PNIM_ITS ---
Subjective Subjective Date of Service: 10/15/23 Interval History: left eye kyleigh feeling Physical Exam 2 Vital Signs: Vital Signs: Last Vital Signs Temp 98.4 F 10/15/23 07:37 Pulse 74 10/15/23 07:37 Resp 16 10/15/23 07:37 BP 191/83 H 10/15/23 07:37 Pulse Ox 97 10/15/23 07:37 O2 Del Method Room Air 10/15/23 07:37 BMI result Body Mass Index 29.0 General: AO X 3, no acute distress Resp: CTA bilateral, no accessory muscles used CVS: S1,S2,RRR GI: soft, non tender, non distended Neuro: motor grossly intact, alert Psych: appropriate affect, appropriate insight ulcers on arms (see admission pics) Objective Data Active Medications Acetaminophen (Acetaminophen 325 Mg Tablet) 650 mg PO Q6H PRN PRN Reason: Pain, Mild (Pain Scale 1-3) Benztropine Mesylate (Benztropine Mesylate 0.5 Mg Tablet) 0.5 mg PO DAILY COUNT INCLUDES THE [facility] Bumetanide (Bumetanide 1 Mg/4 Ml Vial) 2 mg IVPUSH BID@0900,1700 COUNT INCLUDES THE [facility]; Protocol Last Admin: 10/14/23 17:14 Dose: 2 mg Documented By: ALBERT Carvedilol (Carvedilol 6.25 Mg Tablet) 6.25 mg PO BID COUNT INCLUDES THE [facility]; Protocol Last Admin: 10/14/23 21:23 Dose: 6.25 mg Documented By: RAAD Dextrose (Dextrose 50 % 25 Gm/50 Ml Syringe) 25 gm IVPUSH Q15M PRN; Protocol PRN Reason: per Hypoglycemia Standing Ord. Diphenhydramine HCl (Diphenhydramine Hcl 25 Mg Capsule) 25 mg PO BEDTIME COUNT INCLUDES THE [facility] Last Admin: 10/14/23 21:23 Dose: 25 mg Documented By: RAAD Docusate Sodium (Docusate Sodium 100 Mg Capsule) 100 mg PO DAILY PRN PRN Reason: Constipation Ferrous Sulfate (Ferrous Sulfate 324 Mg Tablet.Dr) 324 mg PO DAILY COUNT INCLUDES THE [facility] Gabapentin (Gabapentin 100 Mg Capsule) 200 mg PO BID COUNT INCLUDES THE [facility] Last Admin: 10/14/23 21:23 Dose: 200 mg Documented By: RAAD Glucose (Glucose Gel 15 Gm Gel..Gram.) 15 gm PO Q15M PRN; Protocol PRN Reason: per Hypoglycemia Standing Ord. Heparin Sodium (Porcine) (Heparin Sodium,Porcine 5,000 Unit/Ml Vial) 5,000 unit SUBCUT Q12H COUNT INCLUDES THE [facility] Last Admin: 10/15/23 01:20 Dose: 5,000 unit Documented By: RAAD Hydralazine HCl (Hydralazine Hcl 50 Mg Tablet) 100 mg PO BID COUNT INCLUDES THE [facility]; Protocol Last Admin: 10/14/23 21:22 Dose: 100 mg Documented By: RAAD Sodium Chloride (Ns) 100 mls @ 100 mls/hr IV ONCE ONE Stop: 10/15/23 08:43 Insulin Human Lispro (Insulin Lispro 100 Unit/Ml 3 Ml Vial) 0 unit SUBCUT QIDACHS COUNT INCLUDES THE [facility]; Protocol Last Admin: 10/14/23 21:22 Dose: 4 unit Documented By: RAAD Melatonin (Melatonin 3 Mg Tablet) 6 mg PO BEDTIME PRN PRN Reason: sleep Non-Formulary Medication (Ramelteon) 8 mg PO BEDTIME PRN PRN Reason: Insomnia Ondansetron HCl (Ondansetron Hcl 4 Mg/2 Ml Vial) 4 mg IVPUSH Q8H PRN PRN Reason: Nausea and Vomiting Sodium Chloride (0.9 % Sodium Chloride Flush 3 Ml Syringe) 3 ml IVFLUSH QSHIFT COUNT INCLUDES THE [facility] Last Admin: 10/14/23 21:23 Dose: 3 ml Documented By: RAAD Tamsulosin HCl (Tamsulosin Hcl 0.4 Mg Capsule) 0.4 mg PO DAILY COUNT INCLUDES THE [facility] Trazodone HCl (Trazodone Hcl 50 Mg Tablet) 50 mg PO BEDTIME MRX1 PRN PRN Reason: Insomnia Ziprasidone (Ziprasidone 60 Mg Capsule) 60 mg PO BID COUNT INCLUDES THE [facility] Last Admin: 10/14/23 21:23 Dose: 60 mg Documented By: RAAD Labs 10/15/23 05:50 10/15/23 05:50 Labs: Laboratory Results - last 24 hr 10/14/23 10/14/23 10/14/23 11:14 12:08 14:04 MCV 84.6 MCH 25.8 L MCHC 30.5 L RDW 15.5 Plt Count 257 MPV 9.6 Immature Gran % (Auto) 0.3 Neut % (Auto) 77.2 H Lymph % (Auto) 13.1 L [place] % (Auto) 7.2 Eos % (Auto) 1.9 Baso % (Auto) 0.3 Lymph # (Auto) 1.5 [place] # (Auto) 0.8 Eos # (Auto) 0.2 Baso # (Auto) 0.0 Abs Immat Gran (auto) 0.04 H Absolute Neuts (auto) 8.9 H Absolute Nucleated RBC 0.000 Nucleated RBC % (auto) 0.0 PT 14.8 H INR 1.2 H Anion Gap 12 Estim Creat Clear Calc 22.2 Estimated GFR 19 POC Glucose Random Glucose 204 H Estimat Average Glucose 200 Hemoglobin A1c % 8.6 H Osmolality Calcium 7.9 L Phosphorus Total Bilirubin 0.2 AST 28 ALT 19 Alkaline Phosphatase 136 H B-Natriuretic Peptide 2310 H Total Protein 6.9 Albumin 2.4 L Urine Color Yellow Urine Appearance Clear Urine pH 6.0 Ur Specific [place] 1.010 Urine Protein 300 (3+) H Urine Glucose (UA) 500 H Urine Ketones Negative Urine Blood Trace H Urine Nitrite Negative Ur Leukocyte Esterase Small (1+) H Urine RBC 11-20 H Urine WBC >50 H Ur Squamous Epith Cells 3-5 Urine Bacteria None Seen Hyaline Casts 3-5 Ur Random Sodium 91.0 Urine Creatinine 28.81 Urine Opiates Screen Not Detected Urine Fentanyl Screen Not Detected Ur Barbiturates Screen Not Detected Ur Phencyclidine Scrn Not Detected Ur Amphetamines Screen Not Detected U Benzodiazepines Scrn Not Detected Urine Cocaine Screen POSITIVE H U Marijuana (THC) Screen Not Detected Blood Type A Positive Antibody Screen NEGATIVE Crossmatch See Detail 10/14/23 10/14/23 10/14/23 15:51 17:23 18:34 MCV 85.1 MCH 27.2 MCHC 32.0 RDW 15.6 Plt Count 250 MPV 9.4 Immature Gran % (Auto) 0.4 Neut % (Auto) 69.2 Lymph % (Auto) 16.9 L [place] % (Auto) 9.1 Eos % (Auto) 3.9 Baso % (Auto) 0.5 Lymph # (Auto) 1.8 [place] # (Auto) 1.0 Eos # (Auto) 0.4 Baso # (Auto) 0.1 Abs Immat Gran (auto) 0.04 H Absolute Neuts (auto) 7.6 Absolute Nucleated RBC 0.000 Nucleated RBC % (auto) 0.0 PT INR Anion Gap Estim Creat Clear Calc Estimated GFR POC Glucose 143 H Random Glucose Estimat Average Glucose Hemoglobin A1c % Osmolality 295 Calcium Phosphorus Total Bilirubin AST ALT Alkaline Phosphatase B-Natriuretic Peptide Total Protein Albumin Urine Color Urine Appearance Urine pH Ur Specific [place] Urine Protein Urine Glucose (UA) Urine Ketones Urine Blood Urine Nitrite Ur Leukocyte Esterase Urine RBC Urine WBC Ur Squamous Epith Cells Urine Bacteria Hyaline Casts Ur Random Sodium Urine Creatinine Urine Opiates Screen Urine Fentanyl Screen Ur Barbiturates Screen Ur Phencyclidine Scrn Ur Amphetamines Screen U Benzodiazepines Scrn Urine Cocaine Screen U Marijuana (THC) Screen Blood Type Antibody Screen Crossmatch 10/14/23 10/15/23 10/15/23 21:07 05:50 07:38 MCV 85.0 MCH 26.8 L MCHC 31.6 RDW 15.5 Plt Count 252 MPV 10.5 Immature Gran % (Auto) 0.4 Neut % (Auto) 64.7 Lymph % (Auto) 20.7 [place] % (Auto) 9.1 Eos % (Auto) 4.5 H Baso % (Auto) 0.6 Lymph # (Auto) 1.7 [place] # (Auto) 0.8 Eos # (Auto) 0.4 Baso # (Auto) 0.1 Abs Immat Gran (auto) 0.03 Absolute Neuts (auto) 5.3 Absolute Nucleated RBC 0.000 Nucleated RBC % (auto) 0.0 PT INR Anion Gap 11 L Estim Creat Clear Calc 22.8 Estimated GFR 20 POC Glucose 217 H 134 H Random Glucose 161 H Estimat Average Glucose Hemoglobin A1c % Osmolality Calcium 7.9 L Phosphorus 4.2 Total Bilirubin AST ALT Alkaline Phosphatase B-Natriuretic Peptide 1695 H Total Protein Albumin Urine Color Urine Appearance Urine pH Ur Specific [place] Urine Protein Urine Glucose (UA) Urine Ketones Urine Blood Urine Nitrite Ur Leukocyte Esterase Urine RBC Urine WBC Ur Squamous Epith Cells Urine Bacteria Hyaline Casts Ur Random Sodium Urine Creatinine Urine Opiates Screen Urine Fentanyl Screen Ur Barbiturates Screen Ur Phencyclidine Scrn Ur Amphetamines Screen U Benzodiazepines Scrn Urine Cocaine Screen U Marijuana (THC) Screen Blood Type Antibody Screen Crossmatch Assessment and Plan (1) Nephrotic syndrome: Status: Acute Plan 57M PMH nephrotic syndrome CKD IV, DM, cocaine use, chronic diastolic chf, depression presented with N/V acute on crhonic anemia of chronic disease/ckd IV transfused 1 unit 10/14, transfuse another 10/15 monitor donna on CKD IV nephro following monitor while diuresing acute on chronic diastolic chf iv bumex DM with hyperglcyemia insulin, onitor 3rd degree singh wound care htn coreg, hydralazine cocaine abstinence recommended dvt prophylaxis - mechanical due to severe anemia full code reason for continued hospitalization: anemia Quality Stroke Does the patient have a stroke diagnosis?: No VTE Prior VTE?: No VTE Risk Level:: Medical - moderate - high VTE Device Contraindication: Treatment Not Indicated VTE Drug Contraindication: N/A - Med Ordered
[2023-10-15] MEDS: Acetaminophen 325 MG TABLET 650 MG PO (08:26)
[2023-10-15] MEDS: Gabapentin 100 MG CAPSULE 200 MG PO ×2 (08:27→21:31)
[2023-10-15] MEDS: hydrALAZINE HCl 50 MG TABLET 100 MG PO ×2 (08:27→21:31)
[2023-10-15] MEDS: Ziprasidone 60 MG CAPSULE PO ×2 (08:27→21:31)
[2023-10-15] MEDS: Ferrous Sulfate 324 MG TABLET.DR PO (08:27)
[2023-10-15] MEDS: Benztropine Mesylate 0.5 MG TABLET PO (08:28)
[2023-10-15] MEDS: Tamsulosin HCL 0.4 MG CAPSULE PO (08:28)
[2023-10-15] MEDS: Bumetanide 1 MG/4 ML VIAL 2 MG IVPUSH ×2 (08:28→15:46)
[2023-10-15] MEDS: diphenhydrAMINE HCL 50 MG/ML VIAL 25 MG IVPUSH (08:28)
[2023-10-15] MEDS: carvediloL 6.25 MG TABLET PO ×2 (08:28→21:31)
[2023-10-15] MEDS: 0.9 % Sodium Chloride Flush 3 ML SYRINGE IVFLUSH ×3 (08:30→21:32)
[2023-10-15 11:42] LABS: Glucose, Whole Blood 269 mg/dL (60-115)
[2023-10-15] MEDS: Insulin Lispro 100 UNIT/ML 3 ML VIAL SUBCUT ×3 (12:05→16:27)
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
[2023-10-15 15:57] LABS: Glucose, Whole Blood 415 mg/dL (60-115)
[2023-10-15 16:18] LABS: Glucose, Whole Blood 412 mg/dL (60-115)
[2023-10-15] MEDS: hydrALAZINE HCl 20 MG/ML VIAL 5 MG IVPUSH (16:26)
[2023-10-15 17:09] LABS: Glucose, Whole Blood 339 mg/dL (60-115)
[2023-10-15 20:46] LABS: Glucose, Whole Blood 108 mg/dL (60-115)
[2023-10-15] MEDS: diphenhydrAMINE HCL 25 MG CAPSULE PO (21:31)
[2023-10-16 03:15] VITALS: BP 192/82; PULSE 76; RESP 18; TEMP 36.7; O2SAT 96
[2023-10-16] MEDS: hydrALAZINE HCl 20 MG/ML VIAL 5 MG IVPUSH (03:41)
[2023-10-16] MEDS: Heparin Sodium,Porcine 5,000 UNIT/ML VIAL 5000 UNIT SUBCUT ×2 (03:41→12:58)
[2023-10-16 07:30] VITALS: BP 170/80; PULSE 79; RESP 20; TEMP 36.5; O2SAT 97
[2023-10-16 07:38] LABS: Hematocrit 24.9 % (42.0-52.0); Hemoglobin 8.1 g/dl (14.0-18.0); Mean Corpuscular HGB Conc 32.5 g/dl (31.0-36.0); Mean Corpuscular Hemoglobin 27.6 pg (27.0-33.0); Mean Platelet Volume 10.4 fL (9.4-12.4); Platelet Count 265 X10*3/uL (160-400); Red Blood Count 2.93 X10*6/uL (4.60-5.80); Red Cell Distribution Width 15.6 % (11.0-16.0); White Blood Count 9.8 X10*3/uL (4.8-10.8)
[2023-10-16 08:02] LABS: Glucose, Whole Blood 239 mg/dL (60-115)
[2023-10-16 08:05] LABS: Anion Gap 11 (12-20); Blood Urea Nitrogen 49 mg/dL (9-16); Carbon Dioxide 21 mmol/L (22-29); Chloride 108 mmol/L (96-108); Creatinine Clr Calc Pharmacy 23.5; Estimated Glomerular Filt Rate 20; Glucose Fasting 285 mg/dL (60-99); Sodium 136 mmol/L (135-145)
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
[2023-10-16] MEDS: hydrALAZINE HCl 50 MG TABLET 100 MG PO ×2 (09:41→21:01)
[2023-10-16] MEDS: Ferrous Sulfate 324 MG TABLET.DR PO (09:41)
[2023-10-16] MEDS: Tamsulosin HCL 0.4 MG CAPSULE PO (09:41)
[2023-10-16] MEDS: Gabapentin 100 MG CAPSULE 200 MG PO ×2 (09:41→21:01)
[2023-10-16] MEDS: carvediloL 6.25 MG TABLET PO ×2 (09:41→21:01)
[2023-10-16] MEDS: Ziprasidone 60 MG CAPSULE PO ×2 (09:41→21:01)
[2023-10-16] MEDS: Benztropine Mesylate 0.5 MG TABLET PO (09:41)
[2023-10-16] MEDS: Bumetanide 1 MG/4 ML VIAL 2 MG IVPUSH ×2 (09:42→17:17)
[2023-10-16] MEDS: Insulin Lispro 100 UNIT/ML 3 ML VIAL SUBCUT ×4 (09:42→21:22)
[2023-10-16] MEDS: 0.9 % Sodium Chloride Flush 3 ML SYRINGE IVFLUSH ×3 (09:42→21:11)
[2023-10-16 11:53] LABS: Glucose, Whole Blood 258 mg/dL (60-115)
[2023-10-16 15:46] VITALS: BP 190/80; PULSE 80; RESP 20; TEMP 36.4; O2SAT 95
[2023-10-16 16:42] LABS: Glucose, Whole Blood 243 mg/dL (60-115)
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
[2023-10-16 19:58] VITALS: PULSE 80; RESP 20; TEMP 36.6; O2SAT 96
[2023-10-16 20:00] VITALS: BP 190/80; PULSE 80; RESP 20; TEMP 36.6
[2023-10-16] MEDS: diphenhydrAMINE HCL 25 MG CAPSULE PO (21:01)
[2023-10-16] MEDS: guaiFENesin DM 100/10/5 ML 5 ML SYRUP PO (21:02)
[2023-10-16 23:00] VITALS: BP 186/80; PULSE 82; RESP 20
[2023-10-17] VITALS (7 sets, daily range): BP systolic 161–204; BP diastolic 73–94; PULSE 82–92; RESP 20–28; TEMP 36.5–37.3; O2SAT 92–96
[2023-10-17 01:58] LABS: Glucose, Whole Blood 342 mg/dL (60-115)
[2023-10-17] MEDS: Heparin Sodium,Porcine 5,000 UNIT/ML VIAL 5000 UNIT SUBCUT ×2 (02:10→13:54)
[2023-10-17] MEDS: hydrALAZINE HCl 20 MG/ML VIAL 5 MG IVPUSH ×2 (02:10→15:42)
[2023-10-17] MEDS: guaiFENesin DM 100/10/5 ML 5 ML SYRUP PO ×4 (02:18→20:40)
[2023-10-17 07:33] LABS: Hematocrit 25.1 % (42.0-52.0); Hemoglobin 8.1 g/dl (14.0-18.0); Mean Corpuscular HGB Conc 32.3 g/dl (31.0-36.0); Mean Corpuscular Hemoglobin 27.5 pg (27.0-33.0); Mean Corpuscular Volume 85.1 fL (80.0-98.0); Mean Platelet Volume 9.9 fL (9.4-12.4); Platelet Count 265 X10*3/uL (160-400); Red Blood Count 2.95 X10*6/uL (4.60-5.80); Red Cell Distribution Width 15.8 % (11.0-16.0); White Blood Count 10.4 X10*3/uL (4.8-10.8)
[2023-10-17 07:45] LABS: Anion Gap 12 (12-20); Blood Urea Nitrogen 52 mg/dL (9-16); Carbon Dioxide 20 mmol/L (22-29); Chloride 107 mmol/L (96-108); Creatinine Clr Calc Pharmacy 24.3; Estimated Glomerular Filt Rate 21; Glucose Fasting 264 mg/dL (60-99); Potassium 3.9 mmol/L (3.3-5.1); Sodium 135 mmol/L (135-145)
[2023-10-17 07:55] LABS: Glucose, Whole Blood 250 mg/dL (60-115)
[2023-10-17] MEDS: Benztropine Mesylate 0.5 MG TABLET PO (08:59)
[2023-10-17] MEDS: carvediloL 6.25 MG TABLET PO ×2 (08:59→20:40)
[2023-10-17] MEDS: Tamsulosin HCL 0.4 MG CAPSULE PO (08:59)
[2023-10-17] MEDS: hydrALAZINE HCl 50 MG TABLET 100 MG PO ×2 (08:59→20:40)
[2023-10-17] MEDS: Gabapentin 100 MG CAPSULE 200 MG PO ×2 (08:59→20:40)
[2023-10-17] MEDS: Ziprasidone 60 MG CAPSULE PO ×2 (09:00→20:40)
[2023-10-17] MEDS: Bumetanide 1 MG/4 ML VIAL 2 MG IVPUSH (09:00)
[2023-10-17] MEDS: Ferrous Sulfate 324 MG TABLET.DR PO (09:00)
[2023-10-17] MEDS: Insulin Lispro 100 UNIT/ML 3 ML VIAL SUBCUT ×4 (09:00→20:40)
--- NOTE | 2023-10-17 09:08 | PC.NURSE ---
Addendum entered by Hunter Schneider RN 10/18/23 08:27: md informed of critical glucose. recheck poc in 1 hour. Addendum entered by Hunter Schneider RN 10/17/23 18:19: md informed of elevated BPs this afternoon and evening Addendum entered by Hunter Schneider RN 10/17/23 10:17: informed MD pt BP still elevated Original Note: Informed MD at bedside of pt's BP this AM and pt's wheezing and increased SOB. pt refusing bed alarm
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
[2023-10-17] MEDS: predniSONE 20 MG TABLET 40 MG PO (10:24)
[2023-10-17] MEDS: lisinopriL 40 MG TABLET PO (10:24)
--- NOTE | 2023-10-17 10:37 | MHC.CM.PN ---
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
--- NOTE | 2023-10-17 11:02 | HO.PM.IMPN ---
Subjective Subjective Date of Service: 10/17/23 Interval History: new sob and wheezing Physical Exam Vital Signs: Vital Signs: Last Vital Signs Temp 99.1 F 10/17/23 07:20 Pulse 89 10/17/23 07:20 Resp 24 H 10/17/23 07:20 BP 180/90 H 10/17/23 10:20 Pulse Ox 96 10/17/23 07:20 O2 Del Method Room Air 10/17/23 07:20 O2 Flow Rate 95 10/16/23 20:00 BMI result Body Mass Index 29.0 General: AO X 3, no acute distress Resp: wheezing bilateral, no accessory muscles used CVS: S1,S2,RRR GI: soft, non tender, non distended Neuro: motor grossly intact, alert Psych: appropriate affect, appropriate insight ulcers on arms (see admission pics) Objective Data Active Medications Acetaminophen (Acetaminophen 325 Mg Tablet) 650 mg PO Q6H PRN PRN Reason: Pain, Mild (Pain Scale 1-3) Last Admin: 10/15/23 08:26 Dose: 650 mg Documented By: NAEL Albuterol/Ipratropium (Albuterol/Iprat 2.5/0.5mg 3 Ml Ampul.Neb) 3 ml INHALE RQ4H WHILE AWAKE PRN PRN Reason: Sob Benztropine Mesylate (Benztropine Mesylate 0.5 Mg Tablet) 0.5 mg PO DAILY [facility] Last Admin: 10/17/23 08:59 Dose: 0.5 mg Documented By: VERO Bumetanide (Bumetanide 1 Mg Tablet) 2 mg PO BID [facility]; Protocol Carvedilol (Carvedilol 6.25 Mg Tablet) 6.25 mg PO BID [facility]; Protocol Last Admin: 10/17/23 08:59 Dose: 6.25 mg Documented By: VERO Dextrose (Dextrose 50 % 25 Gm/50 Ml Syringe) 25 gm IVPUSH Q15M PRN; Protocol PRN Reason: per Hypoglycemia Standing Ord. Diphenhydramine HCl (Diphenhydramine Hcl 25 Mg Capsule) 25 mg PO BEDTIME [facility] Last Admin: 10/16/23 21:01 Dose: 25 mg Documented By: ESTEVAN Docusate Sodium (Docusate Sodium 100 Mg Capsule) 100 mg PO DAILY PRN PRN Reason: Constipation Ferrous Sulfate (Ferrous Sulfate 324 Mg Tablet.Dr) 324 mg PO DAILY [facility] Last Admin: 10/17/23 09:00 Dose: 324 mg Documented By: VERO Gabapentin (Gabapentin 100 Mg Capsule) 200 mg PO BID [facility] Last Admin: 10/17/23 08:59 Dose: 200 mg Documented By: VERO Glucose (Glucose Gel 15 Gm Gel..Gram.) 15 gm PO Q15M PRN; Protocol PRN Reason: per Hypoglycemia Standing Ord. Guaifenesin/Dextromethorphan (Guaifenesin Dm 100/10/5 Ml 5 Ml Syrup) 5 ml PO Q4H PRN PRN Reason: Cough Last Admin: 10/17/23 08:59 Dose: 5 ml Documented By: VERO Heparin Sodium (Porcine) (Heparin Sodium,Porcine 5,000 Unit/Ml Vial) 5,000 unit SUBCUT Q12H [facility] Last Admin: 10/17/23 02:10 Dose: 5,000 unit Documented By: ESTEVAN Hydralazine HCl (Hydralazine Hcl 50 Mg Tablet) 100 mg PO BID [facility]; Protocol Last Admin: 10/17/23 08:59 Dose: 100 mg Documented By: VERO Insulin Human Lispro (Insulin Lispro 100 Unit/Ml 3 Ml Vial) 0 unit SUBCUT QIDACHS [facility]; Protocol Last Admin: 10/17/23 09:00 Dose: 4 unit Documented By: VERO Lisinopril (Lisinopril 40 Mg Tablet) 40 mg PO DAILY [facility]; Protocol Last Admin: 10/17/23 10:24 Dose: 40 mg Documented By: JUNIE Melatonin (Melatonin 3 Mg Tablet) 6 mg PO BEDTIME PRN PRN Reason: sleep Non-Formulary Medication (Ramelteon) 8 mg PO BEDTIME PRN PRN Reason: Insomnia Ondansetron HCl (Ondansetron Hcl 4 Mg/2 Ml Vial) 4 mg IVPUSH Q8H PRN PRN Reason: Nausea and Vomiting Prednisone (Prednisone 20 Mg Tablet) 40 mg PO DAILY [facility] Last Admin: 10/17/23 10:24 Dose: 40 mg Documented By: JUNIE Sodium Chloride (0.9 % Sodium Chloride Flush 3 Ml Syringe) 3 ml IVFLUSH QSHIFT [facility] Last Admin: 10/17/23 07:25 Dose: Not Given Documented By: VERO Non-Admin Reason: See Note Tamsulosin HCl (Tamsulosin Hcl 0.4 Mg Capsule) 0.4 mg PO DAILY [facility] Last Admin: 10/17/23 08:59 Dose: 0.4 mg Documented By: VERO Trazodone HCl (Trazodone Hcl 50 Mg Tablet) 50 mg PO BEDTIME MRX1 PRN PRN Reason: Insomnia Ziprasidone (Ziprasidone 60 Mg Capsule) 60 mg PO BID [facility] Last Admin: 10/17/23 09:00 Dose: 60 mg Documented By: VERO Labs 10/17/23 07:08 10/17/23 07:08 Labs: Laboratory Results - last 24 hr 10/16/23 10/16/23 10/16/23 11:39 16:28 21:14 MCV MCH MCHC RDW Plt Count MPV Absolute Nucleated RBC Nucleated RBC % (auto) Anion Gap Estim Creat Clear Calc Estimated GFR POC Glucose 258 H 243 H 342 H Fasting Glucose Calcium 10/17/23 10/17/23 07:08 07:23 MCV 85.1 MCH 27.5 MCHC 32.3 RDW 15.8 Plt Count 265 MPV 9.9 Absolute Nucleated RBC 0.000 Nucleated RBC % (auto) 0.0 Anion Gap 12 Estim Creat Clear Calc 24.3 Estimated GFR 21 POC Glucose 250 H Fasting Glucose 264 H Calcium 8.0 L Microbiology Microbiology Results: Microbiology 10/14/23 Unknown Urine Culture - Final Urine clean catch - Urine marques top Staphylococcus aureus Assessment and Plan (1) Nephrotic syndrome: Status: Acute Plan 57M PMH nephrotic syndrome CKD IV, DM, cocaine use, chronic diastolic chf, depression presented with N/V acute on crhonic anemia of chronic disease/ckd IV transfused 1 unit 10/14, transfused another 10/15 hgb improved, monitor donna on CKD IV nephro following appears stable around scr 3 hyperactive airway prednisone, duonebs acute on chronic diastolic chf will change back to po bumex DM with hyperglcyemia insulin, monitor 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
[2023-10-17 11:29] LABS: Glucose, Whole Blood 265 mg/dL (60-115)
[2023-10-17 14:23] LABS: Calcium (PTHI) 7.7 mg/dL (8.6-10.3); PTHI 120 pg/mL (16-77)
[2023-10-17 16:16] LABS: Glucose, Whole Blood 168 mg/dL (60-115)
[2023-10-17 20:08] LABS: Glucose, Whole Blood 273 mg/dL (60-115)
[2023-10-17] MEDS: Bumetanide 1 MG TABLET 2 MG PO (20:39)
[2023-10-17] MEDS: traZODone HCL 50 MG TABLET PO (20:40)
[2023-10-17] MEDS: Melatonin 3 MG TABLET 6 MG PO (20:40)
[2023-10-17] MEDS: diphenhydrAMINE HCL 25 MG CAPSULE PO (20:40)
[2023-10-17] MEDS: 0.9 % Sodium Chloride Flush 3 ML SYRINGE IVFLUSH (20:41)
[2023-10-18] MEDS: Heparin Sodium,Porcine 5,000 UNIT/ML VIAL 5000 UNIT SUBCUT ×2 (02:40→12:01)
[2023-10-18] MEDS: Albuterol/Iprat 2.5/0.5MG 3 ML AMPUL.NEB INHALE (03:47)
[2023-10-18] MEDS: guaiFENesin DM 100/10/5 ML 5 ML SYRUP PO ×3 (03:47→19:49)
[2023-10-18 04:00] VITALS: BP 187/85; PULSE 80; RESP 20; TEMP 36.4; O2SAT 95
[2023-10-18] MEDS: amLODIPine Besylate 5 MG TABLET PO (04:16)
--- NOTE | 2023-10-18 05:11 | PC.NURSE ---
0400 Pt was hypertensive at the start of the shift. This morning around 4am-BP was 187/85. notified. Pt given 1 time dose of amlodipine po. SR on monitor. HR at 70s.
[2023-10-18 07:24] VITALS: BP 168/80; PULSE 77; RESP 18; TEMP 36.6; O2SAT 97
[2023-10-18 07:46] LABS: Hematocrit 26.1 % (42.0-52.0); Hemoglobin 8.3 g/dl (14.0-18.0); Mean Corpuscular HGB Conc 31.8 g/dl (31.0-36.0); Mean Corpuscular Hemoglobin 26.9 pg (27.0-33.0); Mean Corpuscular Volume 84.7 fL (80.0-98.0); Mean Platelet Volume 10.4 fL (9.4-12.4); Platelet Count 258 X10*3/uL (160-400); Red Blood Count 3.08 X10*6/uL (4.60-5.80); Red Cell Distribution Width 15.8 % (11.0-16.0); White Blood Count 11.8 X10*3/uL (4.8-10.8)
[2023-10-18 08:07] LABS: Glucose, Whole Blood 447 mg/dL (60-115)
[2023-10-18] MEDS: Insulin Lispro 100 UNIT/ML 3 ML VIAL 10 UNIT SUBCUT ×2 (08:11→12:00)
[2023-10-18] MEDS: Insulin Lispro 100 UNIT/ML 3 ML VIAL SUBCUT ×4 (08:11→21:09)
[2023-10-18] MEDS: hydrALAZINE HCl 50 MG TABLET 100 MG PO ×2 (08:12→21:08)
[2023-10-18] MEDS: Ziprasidone 60 MG CAPSULE PO ×2 (08:12→21:07)
[2023-10-18] MEDS: Benztropine Mesylate 0.5 MG TABLET PO (08:12)
[2023-10-18] MEDS: carvediloL 6.25 MG TABLET PO ×2 (08:12→21:07)
[2023-10-18] MEDS: Tamsulosin HCL 0.4 MG CAPSULE PO (08:12)
[2023-10-18] MEDS: lisinopriL 40 MG TABLET PO (08:12)
[2023-10-18] MEDS: Ferrous Sulfate 324 MG TABLET.DR PO (08:12)
[2023-10-18] MEDS: predniSONE 20 MG TABLET 40 MG PO (08:12)
[2023-10-18] MEDS: Bumetanide 1 MG TABLET 2 MG PO ×2 (08:12→21:46)
[2023-10-18] MEDS: Spironolactone 25 MG TABLET PO (08:12)
[2023-10-18] MEDS: Gabapentin 100 MG CAPSULE 200 MG PO ×2 (08:12→21:08)
[2023-10-18 08:19] LABS: Anion Gap 13 (12-20); Blood Urea Nitrogen 63 mg/dL (9-16); Calcium 8.3 mg/dL (8.4-10.2); Carbon Dioxide 20 mmol/L (22-29); Chloride 102 mmol/L (96-108); Creatinine Clr Calc Pharmacy 21.6; Estimated Glomerular Filt Rate 19; Glucose Fasting 520 mg/dL (60-99); Potassium 4.3 mmol/L (3.3-5.1); Sodium 131 mmol/L (135-145)
[2023-10-18 09:27] LABS: Glucose, Whole Blood 396 mg/dL (60-115)
[2023-10-18] MEDS: Insulin Lispro 100 UNIT/ML 3 ML VIAL 20 UNIT SUBCUT (09:51)
--- NOTE | 2023-10-18 10:11 | P.PNNP_ITS ---
Subjective Subjective Date of Service: 10/19/23 Interval history: Events noted. BP remains elevated. Spironolactone has been added. Family at bedside Physical Exam 2 Vital Signs: Vital Signs: Last Vital Signs Temp 97.9 F 10/18/23 07:24 Pulse 77 10/18/23 07:24 Resp 18 10/18/23 07:24 BP 168/80 H 10/18/23 07:24 Pulse Ox 97 10/18/23 07:24 O2 Del Method Room Air 10/18/23 07:24 O2 Flow Rate 95 10/16/23 20:00 BMI result Body Mass Index 29.0 Const: General: comfortable Nutritional Appearance: well nourished O rientation/consciousness: patient oriented x3 HEENT: Head: No normal to inspection Mouth: moist mucous membranes Neck: Neck: Yes supple and Yes no JVD Resp: Auscultation: rhonchi and wheezes Cardio: Jugular venous distension: no JVD Palpation: no palpable S3 and no palpable S4 Heart sounds: no rubs GI: Palpation (GI): Soft to palpation and nontender Percussion: No Fluid wave present : General: Yes no CVA tenderness Back/Spine/Pelvis: Back: no CVA tenderness Skin: General skin exam: no rashes or lesions noted Neuro: General: patient oriented x3 Extrem: General: Yes no pedal edema and No clubbing Objective Data Labs 10/19/23 06:28 10/19/23 06:28 Labs: Laboratory Results - last 24 hr 10/15/23 10/17/23 10/17/23 05:50 11:14 16:11 WBC RBC Hgb Hct MCV MCH MCHC RDW Plt Count MPV Absolute Nucleated RBC Nucleated RBC % (auto) Sodium Potassium Chloride Carbon Dioxide Anion Gap BUN Creatinine Estim Creat Clear Calc Estimated GFR POC Glucose 265 H 168 H Fasting Glucose Calcium PTH Intact 120 H Calcium (PTH Intact) 7.7 L 10/17/23 10/18/23 10/18/23 20:03 06:37 06:38 WBC 11.8 H RBC 3.08 L Hgb 8.3 L Hct 26.1 L MCV 84.7 MCH 26.9 L MCHC 31.8 RDW 15.8 Plt Count 258 MPV 10.4 Absolute Nucleated RBC 0.000 Nucleated RBC % (auto) 0.0 Sodium 131 L Potassium 4.3 Chloride 102 Carbon Dioxide 20 L Anion Gap 13 BUN 63 H Creatinine 3.44 H Estim Creat Clear Calc 21.6 Estimated GFR 19 POC Glucose 273 H Fasting Glucose 520 H* Calcium 8.3 L PTH Intact Calcium (PTH Intact) 10/18/23 10/18/23 07:39 09:20 WBC RBC Hgb Hct MCV MCH MCHC RDW Plt Count MPV Absolute Nucleated RBC Nucleated RBC % (auto) Sodium Potassium Chloride Carbon Dioxide Anion Gap BUN Creatinine Estim Creat Clear Calc Estimated GFR POC Glucose 447 H* 396 H* Fasting Glucose Calcium PTH Intact Calcium (PTH Intact) Microbiology Microbiology Results: Microbiology 10/14/23 Unknown Urine clean catch - Urine marques top Urine Culture - Final Staphylococcus aureus Procedures Date of Service Date of Service: 10/19/23 Assessment & Plan Assessment and plan (1) Acute kidney injury superimposed on chronic kidney disease: Status: Acute (2) Acute on chronic anemia: Status: Acute (3) HTN (hypertension): Status: Acute (4) Nephrotic syndrome: Status: Acute Plan Middle-aged man with acute kidney injury superimposed on CKD. Baseline creatinine is around 2.5 mg/dL. He sustained superimposed KWAME due to hypoperfusion. Clearly he was volume overloaded from admission. Agree with oral Bumex. While on spironolactone I will hold lisinopril. Keep output more intake Low-sodium diet continue overt nephrotoxic agents. No indication for dialysis. He needs to abstain from cocaine Agree with current antihypertensive regimen. Coreg can be increased based on heart rate. Time Spent With Patient Time: Total time managing care of this patient today ____ minutes. Progress Note: Quality Stroke Does the patient have a stroke diagnosis?: No
--- NOTE | 2023-10-18 10:23 | HO.PM.IMPN ---
Subjective Subjective Date of Service: 10/18/23 Interval History: still wheezy Physical Exam Vital Signs: Vital Signs: Last Vital Signs Temp 97.9 F 10/18/23 07:24 Pulse 77 10/18/23 07:24 Resp 18 10/18/23 07:24 BP 168/80 H 10/18/23 07:24 Pulse Ox 97 10/18/23 07:24 O2 Del Method Room Air 10/18/23 07:24 O2 Flow Rate 95 10/16/23 20:00 BMI result Body Mass Index 29.0 Const: General: comfortable Nutritional Appearance: well nourished Orientation/consciousness: patient oriented x3 HEENT: Head: No normal to inspection Mouth: moist mucous membranes Neck: Neck: Yes supple and Yes no JVD Resp: Auscultation: rhonchi and wheezes Cardio: Jugular venous distension: no JVD Palpation: no palpable S3 and no palpable S4 Heart sounds: no rubs GI: Palpation (GI): Soft to palpation and nontender Percussion: No Fluid wave present : General: Yes no CVA tenderness Back/Spine/Pelvis: Back: no CVA tenderness Skin: General skin exam: no rashes or lesions noted Neuro: General: patient oriented x3 Extrem: General: Yes no pedal edema and No clubbing Objective Data Active Medications Acetaminophen (Acetaminophen 325 Mg Tablet) 650 mg PO Q6H PRN PRN Reason: Pain, Mild (Pain Scale 1-3) Last Admin: 10/15/23 08:26 Dose: 650 mg Documented By: NAEL Albuterol/Ipratropium (Albuterol/Iprat 2.5/0.5mg 3 Ml Ampul.Neb) 3 ml INHALE RQ4H WHILE AWAKE PRN PRN Reason: Sob Last Admin: 10/18/23 03:47 Dose: 3 ml Documented By: ESHA Benztropine Mesylate (Benztropine Mesylate 0.5 Mg Tablet) 0.5 mg PO DAILY [facility] Last Admin: 10/18/23 08:12 Dose: 0.5 mg Documented By: VERO Bumetanide (Bumetanide 1 Mg Tablet) 2 mg PO BID [facility]; Protocol Last Admin: 10/18/23 08:12 Dose: 2 mg Documented By: VERO Carvedilol (Carvedilol 6.25 Mg Tablet) 6.25 mg PO BID [facility]; Protocol Last Admin: 10/18/23 08:12 Dose: 6.25 mg Documented By: VERO Dextrose (Dextrose 50 % 25 Gm/50 Ml Syringe) 25 gm IVPUSH Q15M PRN; Protocol PRN Reason: per Hypoglycemia Standing Ord. Diphenhydramine HCl (Diphenhydramine Hcl 25 Mg Capsule) 25 mg PO BEDTIME [facility] Last Admin: 10/17/23 20:40 Dose: 25 mg Documented By: ESHA Docusate Sodium (Docusate Sodium 100 Mg Capsule) 100 mg PO DAILY PRN PRN Reason: Constipation Ferrous Sulfate (Ferrous Sulfate 324 Mg Tablet.Dr) 324 mg PO DAILY [facility] Last Admin: 10/18/23 08:12 Dose: 324 mg Documented By: VERO Gabapentin (Gabapentin 100 Mg Capsule) 200 mg PO BID [facility] Last Admin: 10/18/23 08:12 Dose: 200 mg Documented By: VERO Glucose (Glucose Gel 15 Gm Gel..Gram.) 15 gm PO Q15M PRN; Protocol PRN Reason: per Hypoglycemia Standing Ord. Guaifenesin/Dextromethorphan (Guaifenesin Dm 100/10/5 Ml 5 Ml Syrup) 5 ml PO Q4H PRN PRN Reason: Cough Last Admin: 10/18/23 08:12 Dose: 5 ml Documented By: VERO Heparin Sodium (Porcine) (Heparin Sodium,Porcine 5,000 Unit/Ml Vial) 5,000 unit SUBCUT Q12H [facility] Last Admin: 10/18/23 02:40 Dose: 5,000 unit Documented By: ESHA Hydralazine HCl (Hydralazine Hcl 50 Mg Tablet) 100 mg PO BID [facility]; Protocol Last Admin: 10/18/23 08:12 Dose: 100 mg Documented By: VERO Insulin Human Lispro (Insulin Lispro 100 Unit/Ml 3 Ml Vial) [facility] Protocol Last Admin: 10/18/23 08:11 Dose: 10 unit Documented By: VERO Insulin Human Lispro (Insulin Lispro 100 Unit/Ml 3 Ml Vial) 10 unit SUBCUT QIDAS [facility] Lisinopril (Lisinopril 40 Mg Tablet) 40 mg PO DAILY [facility]; Protocol Last Admin: 10/18/23 08:12 Dose: 40 mg Documented By: VERO Melatonin (Melatonin 3 Mg Tablet) 6 mg PO BEDTIME PRN PRN Reason: sleep Last Admin: 10/17/23 20:40 Dose: 6 mg Documented By: ESHA Ondansetron HCl (Ondansetron Hcl 4 Mg/2 Ml Vial) 4 mg IVPUSH Q8H PRN PRN Reason: Nausea and Vomiting Prednisone (Prednisone 20 Mg Tablet) 40 mg PO DAILY [facility] Last Admin: 10/18/23 08:12 Dose: 40 mg Documented By: VERO Sodium Chloride (0.9 % Sodium Chloride Flush 3 Ml Syringe) 3 ml IVFLUSH QSHIFT [facility] Last Admin: 10/18/23 07:29 Dose: Not Given Documented By: VERO Non-Admin Reason: See Note Spironolactone (Spironolactone 25 Mg Tablet) 25 mg PO DAILY [facility]; Protocol Last Admin: 10/18/23 08:12 Dose: 25 mg Documented By: VERO Tamsulosin HCl (Tamsulosin Hcl 0.4 Mg Capsule) 0.4 mg PO DAILY [facility] Last Admin: 10/18/23 08:12 Dose: 0.4 mg Documented By: VERO Trazodone HCl (Trazodone Hcl 50 Mg Tablet) 50 mg PO BEDTIME MRX1 PRN PRN Reason: Insomnia Last Admin: 10/17/23 20:40 Dose: 50 mg Documented By: ESHA Ziprasidone (Ziprasidone 60 Mg Capsule) 60 mg PO BID [facility] Last Admin: 10/18/23 08:12 Dose: 60 mg Documented By: VERO Labs 10/18/23 06:37 10/18/23 06:38 Labs: Laboratory Results - last 24 hr 10/15/23 10/17/23 10/17/23 05:50 11:14 16:11 MCV MCH MCHC RDW Plt Count MPV Absolute Nucleated RBC Nucleated RBC % (auto) Anion Gap Estim Creat Clear Calc Estimated GFR POC Glucose 265 H 168 H Fasting Glucose Calcium PTH Intact 120 H Calcium (PTH Intact) 7.7 L 11/27/23 11/28/23 11/28/23 20:03 06:37 06:38 MCV 84.7 MCH 26.9 L MCHC 31.8 RDW 15.8 Plt Count 258 MPV 10.4 Absolute Nucleated RBC 0.000 Nucleated RBC % (auto) 0.0 Anion Gap 13 Estim Creat Clear Calc 21.6 Estimated GFR 19 POC Glucose 273 H Fasting Glucose 520 H* Calcium 8.3 L PTH Intact Calcium (PTH Intact) 10/18/23 10/18/23 07:39 09:20 MCV MCH MCHC RDW Plt Count MPV Absolute Nucleated RBC Nucleated RBC % (auto) Anion Gap Estim Creat Clear Calc Estimated GFR POC Glucose 447 H* 396 H* Fasting Glucose Calcium PTH Intact Calcium (PTH Intact) Assessment and Plan (1) Nephrotic syndrome: Status: Acute Plan 57M PMH nephrotic syndrome CKD IV, DM, cocaine use, chronic diastolic chf, depression presented with N/V acute on crhonic anemia of chronic disease/ckd IV transfused 1 unit 10/14, transfused another 10/15 hgb improved, monitor donna on CKD IV nephro following creatinine increased today, monitor hyperactive airway prednisone, duonebs acute on chronic diastolic chf po bumex DM with hyperglcyemia basal bolus insulin - increased due to steroid induce hyperglycemia, monitor 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
--- NOTE | 2023-10-18 10:49 | P.CDIM_ITS ---
PROVIDER RESPONSE TEXT: To clarify, the appropriate diagnosis supported by the clinical indicators: Other (explain): 3rd degree singh QUERY TEXT: PHYSICIAN'S DOCUMENTATION REQUEST Date of Query: 10/18/2023 10:38 AM EST Patient Name: Yao Rivera Admit Date: 10/14/2023 Dear Solomon Alvarez, A review of the medical record indicates additional documentation may be needed. Please review below and update the documentation accordingly. Additional clinical indicators from the record include: Wound care nursing notes dated 10/14 - 3rd degree singh to bilateral arms from August. open to air Follows wound clinic Depth/degree - be as specific as possible identifying the depth/degree for each involved site Extent - please clarify the following: Total body surface area involved: Less than 10% of body surface 50-59% of body surface 10-19% of body surface 20-29% of body surface 30-39% of body surface 40-49% of body surface 60-69% of body surface 70-79% of body surface 80-89% of body surface 90% or more of body surface Percentage of involved area with 3rd degree singh: Less than 10% third degree 10-19% third degree 20-29% third degree 30-39% third degree 40-49% third degree 50-59% third degree 60-69% third degree 70-79% third degree 80-89% third degree 90% or more third degree Please address the Depth/degree, and Extent as able Other (explain) Clinically unable to determine (explain) Thank you, Soumya Grimes, CCS, CDIS Use of terms such as suspected, likely, concern for, or probable (associated with a specific diagnosi s that is being evaluated, monitored, or treated as if it exists) are acceptable and can be coded in the inpatient se tting, when documented at the time of discharge. Please use your independent medical judgment in providing your response. THIS QUERY IS PART OF THE PERMANENT MEDICAL RECORD
[2023-10-18 11:57] LABS: Glucose, Whole Blood 250 mg/dL (60-115)
[2023-10-18] MEDS: Insulin Glargine,Hum.rec.anlog 100 UNIT/ML 10 ML VIAL 15 UNIT SUBCUT (12:01)
[2023-10-18 15:14] VITALS: BP 158/73; PULSE 77; RESP 18; TEMP 36.3; O2SAT 96
[2023-10-18 16:23] LABS: Glucose, Whole Blood 167 mg/dL (60-115)
[2023-10-18 20:00] VITALS: BP 179/87; PULSE 73; RESP 19; TEMP 36.3; O2SAT 98
[2023-10-18 20:54] LABS: Glucose, Whole Blood 218 mg/dL (60-115)
[2023-10-18] MEDS: Melatonin 3 MG TABLET 6 MG PO (21:07)
[2023-10-18] MEDS: traZODone HCL 50 MG TABLET PO (21:07)
[2023-10-18] MEDS: diphenhydrAMINE HCL 25 MG CAPSULE PO (21:08)
[2023-10-19] MEDS: guaiFENesin DM 100/10/5 ML 5 ML SYRUP PO ×6 (00:06→20:14)
[2023-10-19] MEDS: Heparin Sodium,Porcine 5,000 UNIT/ML VIAL 5000 UNIT SUBCUT ×2 (04:18→11:37)
[2023-10-19 04:31] VITALS: BP 175/85; PULSE 75; RESP 18; TEMP 36.5; O2SAT 97
[2023-10-19 07:21] LABS: Glucose, Whole Blood 314 mg/dL (60-115)
[2023-10-19 07:23] VITALS: BP 179/88; PULSE 72; RESP 18; TEMP 36.4; O2SAT 95
[2023-10-19 07:28] LABS: Hematocrit 27.2 % (42.0-52.0); Hemoglobin 8.8 g/dl (14.0-18.0); Mean Corpuscular HGB Conc 32.4 g/dl (31.0-36.0); Mean Corpuscular Hemoglobin 27.3 pg (27.0-33.0); Mean Corpuscular Volume 84.5 fL (80.0-98.0); Mean Platelet Volume 10.3 fL (9.4-12.4); Platelet Count 269 X10*3/uL (160-400); Red Blood Count 3.22 X10*6/uL (4.60-5.80); White Blood Count 13.4 X10*3/uL (4.8-10.8)
[2023-10-19 07:45] LABS: Anion Gap 14 (12-20); Blood Urea Nitrogen 76 mg/dL (9-16); Calcium 8.8 mg/dL (8.4-10.2); Carbon Dioxide 18 mmol/L (22-29); Chloride 102 mmol/L (96-108); Creatinine Clr Calc Pharmacy 20.5; Estimated Glomerular Filt Rate 17; Glucose Fasting 347 mg/dL (60-99); Potassium 4.2 mmol/L (3.3-5.1); Sodium 130 mmol/L (135-145)
[2023-10-19] MEDS: Bumetanide 1 MG TABLET 2 MG PO ×2 (07:54→20:13)
[2023-10-19] MEDS: Ferrous Sulfate 324 MG TABLET.DR PO (07:54)
[2023-10-19] MEDS: Spironolactone 25 MG TABLET PO (07:54)
[2023-10-19] MEDS: hydrALAZINE HCl 50 MG TABLET 100 MG PO ×2 (07:55→20:14)
[2023-10-19] MEDS: Benztropine Mesylate 0.5 MG TABLET PO (07:55)
[2023-10-19] MEDS: Tamsulosin HCL 0.4 MG CAPSULE PO (07:55)
[2023-10-19] MEDS: carvediloL 6.25 MG TABLET PO ×2 (07:55→20:14)
[2023-10-19] MEDS: Ziprasidone 60 MG CAPSULE PO ×2 (07:55→20:13)
[2023-10-19] MEDS: predniSONE 20 MG TABLET 40 MG PO (07:55)
[2023-10-19] MEDS: Insulin Glargine,Hum.rec.anlog 100 UNIT/ML 10 ML VIAL 15 UNIT SUBCUT (07:56)
[2023-10-19] MEDS: Insulin Lispro 100 UNIT/ML 3 ML VIAL SUBCUT ×3 (07:56→21:07)
[2023-10-19] MEDS: Insulin Lispro 100 UNIT/ML 3 ML VIAL 10 UNIT SUBCUT ×2 (07:56→11:37)
[2023-10-19] MEDS: Gabapentin 100 MG CAPSULE 200 MG PO ×2 (07:56→20:12)
[2023-10-19] MEDS: 0.9 % Sodium Chloride Flush 3 ML SYRINGE IVFLUSH ×4 (07:57→21:09)
--- NOTE | 2023-10-19 09:54 | P.PNNP_ITS ---
Subjective Subjective Date of Service: 10/19/23 Interval history: Events noted. Family at bedside. still wheezy Physical Exam 2 Vital Signs: Vital Signs: Last Vital Signs Temp 97.6 F 10/19/23 07:23 Pulse 72 10/19/23 07:23 Resp 18 10/19/23 07:23 BP 179/88 H 10/19/23 07:23 Pulse Ox 95 10/19/23 07:23 O2 Del Method Room Air 10/19/23 07:23 O2 Flow Rate 95 10/16/23 20:00 BMI result Body Mass Index 29.0 Const: General: comfortable Nutritional Appearance: well nourished O rientation/consciousness: patient oriented x3 HEENT: Head: No normal to inspection Mouth: moist mucous membranes Neck: Neck: Yes supple and Yes no JVD Resp: Auscultation: rhonchi and wheezes Cardio: Jugular venous distension: no JVD Palpation: no palpable S3 and no palpable S4 Heart sounds: no rubs GI: Palpation (GI): Soft to palpation and nontender Percussion: No Fluid wave present : General: Yes no CVA tenderness Back/Spine/Pelvis: Back: no CVA tenderness Skin: General skin exam: no rashes or lesions noted Neuro: General: patient oriented x3 Extrem: General: Yes no pedal edema and No clubbing Objective Data Labs 10/19/23 06:28 10/19/23 06:28 Labs: Laboratory Results - last 24 hr 10/18/23 10/18/23 10/18/23 11:37 16:01 20:28 WBC RBC Hgb Hct MCV MCH MCHC RDW Plt Count MPV Absolute Nucleated RBC Nucleated RBC % (auto) Sodium Potassium Chloride Carbon Dioxide Anion Gap BUN Creatinine Estim Creat Clear Calc Estimated GFR POC Glucose 250 H 167 H 218 H Fasting Glucose Calcium 10/19/23 10/19/23 06:28 07:06 WBC 13.4 H RBC 3.22 L Hgb 8.8 L Hct 27.2 L MCV 84.5 MCH 27.3 MCHC 32.4 RDW 16.0 Plt Count 269 MPV 10.3 Absolute Nucleated RBC 0.000 Nucleated RBC % (auto) 0.0 Sodium 130 L Potassium 4.2 Chloride 102 Carbon Dioxide 18 L Anion Gap 14 BUN 76 H Creatinine 3.63 H Estim Creat Clear Calc 20.5 Estimated GFR 17 POC Glucose 314 H Fasting Glucose 347 H Calcium 8.8 D Microbiology Microbiology Results: Microbiology 10/14/23 Unknown Urine clean catch - Urine marques top Urine Culture - Final Staphylococcus aureus Procedures Date of Service Date of Service: 10/19/23 Assessment & Plan Assessment and plan (1) Acute kidney injury superimposed on chronic kidney disease: Status: Acute (2) Acute on chronic anemia: Status: Acute (3) HTN (hypertension): Status: Acute (4) Nephrotic syndrome: Status: Acute Plan Middle-aged man with acute kidney injury superimposed on CKD. Baseline creatinine is around 2.5 mg/dL. He sustained superimposed KWAME due to hypoperfusion. Clearly he was volume overloaded from admission. Agree with oral Bumex. Despite increase in creatinine due to volume overload. While on spironolactone I will hold lisinopril. Keep output more intake Low-sodium diet continue overt nephrotoxic agents. No indication for dialysis. He needs to abstain from cocaine Agree with current antihypertensive regimen. Coreg can be increased based on heart rate. Time Spent With Patient Time: Total time managing care of this patient today ____ minutes. Progress Note: Quality Stroke Does the patient have a stroke diagnosis?: No
[2023-10-19 11:03] LABS: Glucose, Whole Blood 182 mg/dL (60-115)
[2023-10-19 11:32] VITALS: BP 157/80; PULSE 69
[2023-10-19] MEDS: amLODIPine Besylate 5 MG TABLET PO (11:40)
--- NOTE | 2023-10-19 12:20 | P.PNIM_ITS ---
Subjective Subjective Date of Service: 10/19/23 Interval History: seen and evaluated feels better overall but still on O2 supplement family at bedside having edema and SOB denies fever or chills BP better controlled Cr increasing still Review of Systems Review of Systems: Yes all other systems are reviewed and are negative Physical Exam 2 Vital Signs: Vital Signs: Last Vital Signs Temp 97.6 F 10/19/23 07:23 Pulse 69 10/19/23 11:32 Resp 18 10/19/23 07:23 BP 157/80 H 10/19/23 11:32 Pulse Ox 95 10/19/23 07:23 O2 Del Method Room Air 10/19/23 07:23 O2 Flow Rate 95 10/16/23 20:00 BMI result Body Mass Index 29.0 Const: Other: Constitutional : Awake, interactive, not in distress Neck : Normal inspection, Supple Cardiovascular : RRR, no JVP, trace lower extremity edema Respiratory : good bilateral air entry, no crackles, wheezes or rhonchi Gastrointestinal: soft, lax, Normal bowel sounds, Non tender, mild subcutaneous edema Skin : Warm, Dry Neurological : Alert & oriented x3, No focal deficit Objective Data Active Medications Acetaminophen (Acetaminophen 325 Mg Tablet) 650 mg PO Q6H PRN PRN Reason: Pain, Mild (Pain Scale 1-3) Last Admin: 10/15/23 08:26 Dose: 650 mg Documented By: NAEL Albuterol/Ipratropium (Albuterol/Iprat 2.5/0.5mg 3 Ml Ampul.Neb) 3 ml INHALE RQ4H WHILE AWAKE PRN PRN Reason: Sob Last Admin: 10/18/23 03:47 Dose: 3 ml Documented By: ESHA Amlodipine Besylate (Amlodipine Besylate 5 Mg Tablet) 5 mg PO DAILY [facility]; Protocol Last Admin: 10/19/23 11:40 Dose: 5 mg Documented By: KADY Benztropine Mesylate (Benztropine Mesylate 0.5 Mg Tablet) 0.5 mg PO DAILY [facility] Last Admin: 10/19/23 07:55 Dose: 0.5 mg Documented By: KADY Bumetanide (Bumetanide 1 Mg Tablet) 2 mg PO BID [facility]; Protocol Carvedilol (Carvedilol 6.25 Mg Tablet) 6.25 mg PO BID [facility]; Protocol Last Admin: 10/19/23 07:55 Dose: 6.25 mg Documented By: KADY Dextrose (Dextrose 50 % 25 Gm/50 Ml Syringe) 25 gm IVPUSH Q15M PRN; Protocol PRN Reason: per Hypoglycemia Standing Ord. Diphenhydramine HCl (Diphenhydramine Hcl 25 Mg Capsule) 25 mg PO BEDTIME [facility] Last Admin: 10/18/23 21:08 Dose: 25 mg Documented By: MARY Docusate Sodium (Docusate Sodium 100 Mg Capsule) 100 mg PO DAILY PRN PRN Reason: Constipation Ferrous Sulfate (Ferrous Sulfate 324 Mg Tablet.Dr) 324 mg PO DAILY [facility] Last Admin: 10/19/23 07:54 Dose: 324 mg Documented By: KADY Gabapentin (Gabapentin 100 Mg Capsule) 200 mg PO BID [facility] Last Admin: 10/19/23 07:56 Dose: 200 mg Documented By: KADY Glucose (Glucose Gel 15 Gm Gel..Gram.) 15 gm PO Q15M PRN; Protocol PRN Reason: per Hypoglycemia Standing Ord. Guaifenesin/Dextromethorphan (Guaifenesin Dm 100/10/5 Ml 5 Ml Syrup) 5 ml PO Q4H PRN PRN Reason: Cough Last Admin: 10/19/23 11:37 Dose: 5 ml Documented By: KADY Heparin Sodium (Porcine) (Heparin Sodium,Porcine 5,000 Unit/Ml Vial) 5,000 unit SUBCUT Q12H [facility] Last Admin: 10/19/23 11:37 Dose: 5,000 unit Documented By: KADY Hydralazine HCl (Hydralazine Hcl 50 Mg Tablet) 100 mg PO BID [facility]; Protocol Last Admin: 10/19/23 07:55 Dose: 100 mg Documented By: KADY Insulin Glargine (Insulin Glargine,Hum.Rec.Anlog 100 Unit/Ml 10 Ml Vial) 15 unit SUBCUT DAILY [facility] Last Admin: 10/19/23 07:56 Dose: 15 unit Documented By: KADY Insulin Human Lispro (Insulin Lispro 100 Unit/Ml 3 Ml Vial) 0 unit SUBCUT QIDACHS [facility]; Protocol Last Admin: 10/19/23 11:37 Dose: 2 unit Documented By: KADY Insulin Human Lispro (Insulin Lispro 100 Unit/Ml 3 Ml Vial) 10 unit SUBCUT QIDACHS [facility] Last Admin: 10/19/23 11:37 Dose: 10 unit Documented By: KADY Lisinopril (Lisinopril 40 Mg Tablet) 40 mg PO DAILY [facility]; Protocol Last Admin: 10/18/23 08:12 Dose: 40 mg Documented By: VERO Melatonin (Melatonin 3 Mg Tablet) 6 mg PO BEDTIME PRN PRN Reason: sleep Last Admin: 10/18/23 21:07 Dose: 6 mg Documented By: MARY Ondansetron HCl (Ondansetron Hcl 4 Mg/2 Ml Vial) 4 mg IVPUSH Q8H PRN PRN Reason: Nausea and Vomiting Prednisone (Prednisone 20 Mg Tablet) 40 mg PO DAILY [facility] Last Admin: 10/19/23 07:55 Dose: 40 mg Documented By: KADY Sodium Chloride (0.9 % Sodium Chloride Flush 3 Ml Syringe) 3 ml IVFLUSH QSHIFT [facility] Last Admin: 10/19/23 07:57 Dose: 3 ml Documented By: KADY Spironolactone (Spironolactone 25 Mg Tablet) 25 mg PO DAILY [facility]; Protocol Last Admin: 10/19/23 07:54 Dose: 25 mg Documented By: KADY Tamsulosin HCl (Tamsulosin Hcl 0.4 Mg Capsule) 0.4 mg PO DAILY [facility] Last Admin: 10/19/23 07:55 Dose: 0.4 mg Documented By: KADY Trazodone HCl (Trazodone Hcl 50 Mg Tablet) 50 mg PO BEDTIME MRX1 PRN PRN Reason: Insomnia Last Admin: 10/18/23 21:07 Dose: 50 mg Documented By: MARY Ziprasidone (Ziprasidone 60 Mg Capsule) 60 mg PO BID [facility] Last Admin: 10/19/23 07:55 Dose: 60 mg Documented By: KADY Labs 10/19/23 06:28 10/19/23 06:28 Labs: Laboratory Results - last 24 hr 10/18/23 10/18/23 10/19/23 16:01 20:28 06:28 MCV 84.5 MCH 27.3 MCHC 32.4 RDW 16.0 Plt Count 269 MPV 10.3 Absolute Nucleated RBC 0.000 Nucleated RBC % (auto) 0.0 Anion Gap 14 Estim Creat Clear Calc 20.5 Estimated GFR 17 POC Glucose 167 H 218 H Fasting Glucose 347 H Calcium 8.8 D 10/19/23 10/19/23 07:06 10:52 MCV MCH MCHC RDW Plt Count MPV Absolute Nucleated RBC Nucleated RBC % (auto) Anion Gap Estim Creat Clear Calc Estimated GFR POC Glucose 314 H 182 H Fasting Glucose Calcium Assessment and Plan (1) Acute kidney injury superimposed on chronic kidney disease: Status: Acute (2) Acute on chronic anemia: Status: Acute (3) Nephrotic syndrome: Status: Acute Plan 57M PMH nephrotic syndrome CKD IV, DM, cocaine use, chronic diastolic chf, depression presented with N/V acute on crhonic anemia of chronic disease/ckd IV transfused 1 unit 10/14, transfused another 10/15 hgb improved, monitor donna on CKD IV with nephrotic syndrome nephro input appreciated, continue bumex hold lisinopril for now creatinine increased to 3.6, monitor hyperactive airway continue prednisone, duonebs acute on chronic diastolic chf po bumex DM with hyperglcyemia basal bolus insulin - increased due to steroid induce hyperglycemia, monitor 3rd degree singh wound care htn - uncontrolled coreg, hydralazine, started aldactone, monitor cocaine abstinence recommended dvt prophylaxis Heparin full code reason for continued hospitalization: still with unctonrolled bps, wheezing, creatinine increasing Quality Stroke Does the patient have a stroke diagnosis?: No VTE Prior VTE?: No VTE Risk Level:: Medical - moderate - high VTE Device Contraindication: Treatment Not Indicated VTE Drug Contraindication: N/A - Med Ordered
--- NOTE | 2023-10-19 14:21 | MHC.CM.PN ---
EMR REVIEWED, PT SOB AND ON SUPPLEMENTAL O2 W/CR INCREASING, SODIUM 130, NO PLAN FOR DC TODAY, CM WILL CONT TO FOLLOW DC NEEDS.
[2023-10-19 15:26] VITALS: BP 167/78; PULSE 76; RESP 18; TEMP 36.4; O2SAT 94
[2023-10-19 16:20] LABS: Glucose, Whole Blood 137 mg/dL (60-115)
[2023-10-19] MEDS: Finasteride 5 MG TABLET PO (16:25)
[2023-10-19 19:50] VITALS: BP 162/75; PULSE 76; RESP 16; TEMP 36.3; O2SAT 96
[2023-10-19] MEDS: Melatonin 3 MG TABLET 6 MG PO (20:13)
[2023-10-19] MEDS: diphenhydrAMINE HCL 25 MG CAPSULE PO (20:14)
[2023-10-19] MEDS: traZODone HCL 50 MG TABLET PO (20:14)
[2023-10-19 20:20] LABS: Glucose, Whole Blood 320 mg/dL (60-115)
[2023-10-20] MEDS: guaiFENesin DM 100/10/5 ML 5 ML SYRUP PO ×4 (00:50→23:39)
[2023-10-20 03:48] VITALS: BP 157/70; PULSE 74; RESP 18; TEMP 36.6; O2SAT 97
[2023-10-20] MEDS: Heparin Sodium,Porcine 5,000 UNIT/ML VIAL 5000 UNIT SUBCUT ×3 (05:49→23:39)
[2023-10-20 07:59] VITALS: BP 161/76; PULSE 74; RESP 20; TEMP 36.4; O2SAT 98
[2023-10-20 08:05] LABS: Anion Gap 15 (12-20); Blood Urea Nitrogen 98 mg/dL (9-16); Calcium 8.4 mg/dL (8.4-10.2); Carbon Dioxide 19 mmol/L (22-29); Chloride 104 mmol/L (96-108); Creatinine Clr Calc Pharmacy 19.3; Estimated Glomerular Filt Rate 16; Glucose Random 322 mg/dL (60-115); Potassium 4.5 mmol/L (3.3-5.1); Sodium 133 mmol/L (135-145)
[2023-10-20 08:09] LABS: Glucose, Whole Blood 288 mg/dL (60-115)
[2023-10-20] MEDS: Insulin Glargine,Hum.rec.anlog 100 UNIT/ML 10 ML VIAL 15 UNIT SUBCUT (09:18)
[2023-10-20] MEDS: Gabapentin 100 MG CAPSULE 200 MG PO ×2 (09:19→21:11)
[2023-10-20] MEDS: Finasteride 5 MG TABLET PO (09:19)
[2023-10-20] MEDS: Benztropine Mesylate 0.5 MG TABLET PO (09:19)
[2023-10-20] MEDS: Insulin Lispro 100 UNIT/ML 3 ML VIAL SUBCUT ×3 (09:19→21:10)
[2023-10-20] MEDS: Insulin Lispro 100 UNIT/ML 3 ML VIAL 10 UNIT SUBCUT ×3 (09:19→21:11)
[2023-10-20] MEDS: Ziprasidone 60 MG CAPSULE PO ×2 (09:19→21:11)
[2023-10-20] MEDS: predniSONE 20 MG TABLET 40 MG PO (09:20)
[2023-10-20] MEDS: 0.9 % Sodium Chloride Flush 3 ML SYRINGE IVFLUSH ×3 (09:20→23:39)
[2023-10-20] MEDS: Tamsulosin HCL 0.4 MG CAPSULE PO (09:20)
[2023-10-20] MEDS: amLODIPine Besylate 5 MG TABLET PO ×2 (09:20→11:53)
[2023-10-20] MEDS: carvediloL 6.25 MG TABLET PO ×2 (09:20→21:11)
[2023-10-20] MEDS: hydrALAZINE HCl 50 MG TABLET 100 MG PO ×2 (09:20→21:12)
[2023-10-20] MEDS: Ferrous Sulfate 324 MG TABLET.DR PO (09:20)
--- NOTE | 2023-10-20 10:14 | P.PNNP_ITS ---
Subjective Subjective Date of Service: 10/21/23 Interval history: seen and evaluated feels better overall but still on O2 supplement family at bedside having edema and SOB denies fever or chills BP better controlled Cr increasing still Physical Exam 2 Vital Signs: Vital Signs: Last Vital Signs Temp 97.6 F 10/20/23 07:59 Pulse 74 10/20/23 07:59 Resp 20 10/20/23 07:59 BP 161/76 H 10/20/23 07:59 Pulse Ox 98 10/20/23 07:59 O2 Del Method Room Air 10/20/23 07:59 O2 Flow Rate 95 10/16/23 20:00 BMI result Body Mass Index 29.0 Const: General: comfortable Nutritional Appearance: well nourished O rientation/consciousness: patient oriented x3 HEENT: Head: No normal to inspection Mouth: moist mucous membranes Neck: Neck: Yes supple and Yes no JVD Resp: Auscultation: rhonchi and wheezes Cardio: Jugular venous distension: no JVD Palpation: no palpable S3 and no palpable S4 Heart sounds: no rubs GI: Palpation (GI): Soft to palpation and nontender Percussion: No Fluid wave present : General: Yes no CVA tenderness Back/Spine/Pelvis: Back: no CVA tenderness Skin: General skin exam: no rashes or lesions noted Neuro: General: patient oriented x3 Extrem: General: Yes no pedal edema and No clubbing Objective Data Labs 10/21/23 06:17 10/21/23 06:17 Labs: Laboratory Results - last 24 hr 10/19/23 10/19/23 10/19/23 10:52 16:16 20:15 Hold Purple Top Sodium Potassium Chloride Carbon Dioxide Anion Gap BUN Creatinine Estim Creat Clear Calc Estimated GFR POC Glucose 182 H 137 H 320 H Random Glucose Calcium 10/20/23 10/20/23 07:05 07:58 Hold Purple Top SEE NOTE Sodium 133 L Potassium 4.5 Chloride 104 Carbon Dioxide 19 L Anion Gap 15 BUN 98 H Creatinine 3.85 H Estim Creat Clear Calc 19.3 Estimated GFR 16 POC Glucose 288 H Random Glucose 322 H Calcium 8.4 Microbiology Microbiology Results: Microbiology 10/14/23 Unknown Urine clean catch - Urine marques top Urine Culture - Final Staphylococcus aureus Procedures Date of Service Date of Service: 10/21/23 Assessment & Plan Assessment and plan (1) Acute kidney injury superimposed on chronic kidney disease: Status: Acute (2) Acute on chronic anemia: Status: Acute (3) HTN (hypertension): Status: Acute (4) Nephrotic syndrome: Status: Acute Plan Middle-aged man with acute kidney injury superimposed on CKD. Biopsy showed evidence of TMA in the past Baseline creatinine is around 2.5 mg/dL. He sustained superimposed KWAME due to hypoperfusion. Clearly he was volume overloaded from admission. Agree with restarting oral Bumex. Despite increase in creatinine due to volume overload. While on spironolactone I will hold lisinopril. Keep output more intake Low-sodium diet continue overt nephrotoxic agents. No indication for dialysis. He needs to abstain from cocaine Agree with current antihypertensive regimen. Coreg can be increased based on heart rate. Time Spent With Patient Time: Total time managing care of this patient today ____ minutes. Progress Note: Quality Stroke Does the patient have a stroke diagnosis?: No
[2023-10-20 11:32] LABS: Glucose, Whole Blood 160 mg/dL (60-115)
[2023-10-20] MEDS: Insulin Glargine,Hum.rec.anlog 100 UNIT/ML 10 ML VIAL 10 UNIT SUBCUT (11:53)
--- NOTE | 2023-10-20 13:19 | HO.PM.IMPN ---
Subjective Subjective Date of Service: 10/20/23 Interval History: seen and evaluated feels better overall and weaned off O2 Still having edema and wheezing denies fever or chills BP better controlled Cr increasing still to 3.85 Review of Systems Review of Systems: Yes all other systems are reviewed and are negative Physical Exam Vital Signs: Vital Signs: Last Vital Signs Temp 97.6 F 10/20/23 07:59 Pulse 74 10/20/23 07:59 Resp 20 10/20/23 07:59 BP 161/76 H 10/20/23 07:59 Pulse Ox 98 10/20/23 07:59 O2 Del Method Room Air 10/20/23 07:59 O2 Flow Rate 95 10/16/23 20:00 BMI result Body Mass Index 29.0 Const: Other: Constitutional : Awake, interactive, not in distress Neck : Normal inspection, Supple Cardiovascular : RRR, no JVP, trace lower extremity edema Respiratory : good bilateral air entry, no crackles, wheezes or rhonchi Gastrointestinal: soft, lax, Normal bowel sounds, Non tender, mild subcutaneous edema in the back Skin : Warm, Dry Neurological : Alert & oriented x3, No focal deficit Objective Data Active Medications Acetaminophen (Acetaminophen 325 Mg Tablet) 650 mg PO Q6H PRN PRN Reason: Pain, Mild (Pain Scale 1-3) Last Admin: 10/15/23 08:26 Dose: 650 mg Documented By: NAEL Albuterol/Ipratropium (Albuterol/Iprat 2.5/0.5mg 3 Ml Ampul.Neb) 3 ml INHALE RQ4H WHILE AWAKE PRN PRN Reason: Sob Last Admin: 10/18/23 03:47 Dose: 3 ml Documented By: ESHA Amlodipine Besylate (Amlodipine Besylate 10 Mg Tablet) 10 mg PO DAILY [facility]; Protocol Benztropine Mesylate (Benztropine Mesylate 0.5 Mg Tablet) 0.5 mg PO DAILY [facility] Last Admin: 10/20/23 09:19 Dose: 0.5 mg Documented By: DOMENIC Bumetanide (Bumetanide 1 Mg Tablet) 2 mg PO BID [facility]; Protocol Last Admin: 10/19/23 20:13 Dose: 2 mg Documented By: MARY Carvedilol (Carvedilol 6.25 Mg Tablet) 6.25 mg PO BID [facility]; Protocol Last Admin: 10/20/23 09:20 Dose: 6.25 mg Documented By: DOMENIC Dextrose (Dextrose 50 % 25 Gm/50 Ml Syringe) 25 gm IVPUSH Q15M PRN; Protocol PRN Reason: per Hypoglycemia Standing Ord. Diphenhydramine HCl (Diphenhydramine Hcl 25 Mg Capsule) 25 mg PO BEDTIME [facility] Last Admin: 10/19/23 20:14 Dose: 25 mg Documented By: MARY Docusate Sodium (Docusate Sodium 100 Mg Capsule) 100 mg PO DAILY PRN PRN Reason: Constipation Ferrous Sulfate (Ferrous Sulfate 324 Mg Tablet.Dr) 324 mg PO DAILY [facility] Last Admin: 10/20/23 09:20 Dose: 324 mg Documented By: DOMENIC Finasteride (Finasteride 5 Mg Tablet) 5 mg PO DAILY [facility] Last Admin: 10/20/23 09:19 Dose: 5 mg Documented By: DOMENIC Gabapentin (Gabapentin 100 Mg Capsule) 200 mg PO BID [facility] Last Admin: 10/20/23 09:19 Dose: 200 mg Documented By: DOMENIC Glucose (Glucose Gel 15 Gm Gel..Gram.) 15 gm PO Q15M PRN; Protocol PRN Reason: per Hypoglycemia Standing Ord. Guaifenesin/Dextromethorphan (Guaifenesin Dm 100/10/5 Ml 5 Ml Syrup) 5 ml PO Q4H PRN PRN Reason: Cough Last Admin: 10/20/23 05:49 Dose: 5 ml Documented By: MARY Heparin Sodium (Porcine) (Heparin Sodium,Porcine 5,000 Unit/Ml Vial) 5,000 unit SUBCUT Q12H [facility] Last Admin: 10/20/23 12:55 Dose: 5,000 unit Documented By: DOMENIC Hydralazine HCl (Hydralazine Hcl 50 Mg Tablet) 100 mg PO BID [facility]; Protocol Last Admin: 10/20/23 09:20 Dose: 100 mg Documented By: DOMENIC Insulin Glargine (Insulin Glargine,Hum.Rec.Anlog 100 Unit/Ml 10 Ml Vial) 25 unit SUBCUT DAILY [facility] Insulin Human Lispro (Insulin Lispro 100 Unit/Ml 3 Ml Vial) 0 unit SUBCUT QIDACHS [facility]; Protocol Last Admin: 10/20/23 11:53 Dose: 2 unit Documented By: DOMENIC Insulin Human Lispro (Insulin Lispro 100 Unit/Ml 3 Ml Vial) [facility] Last Admin: 10/20/23 11:53 Dose: 10 unit Documented By: DOMENIC Lisinopril (Lisinopril 40 Mg Tablet) 40 mg PO DAILY [facility]; Protocol Last Admin: 10/18/23 08:12 Dose: 40 mg Documented By: VERO Melatonin (Melatonin 3 Mg Tablet) 6 mg PO BEDTIME PRN PRN Reason: sleep Last Admin: 10/19/23 20:13 Dose: 6 mg Documented By: MARY Ondansetron HCl (Ondansetron Hcl 4 Mg/2 Ml Vial) 4 mg IVPUSH Q8H PRN PRN Reason: Nausea and Vomiting Prednisone (Prednisone 20 Mg Tablet) 40 mg PO DAILY [facility] Last Admin: 10/20/23 09:20 Dose: 40 mg Documented By: DOMENIC Sodium Chloride (0.9 % Sodium Chloride Flush 3 Ml Syringe) 3 ml IVFLUSH QSHIFT [facility] Last Admin: 10/20/23 09:20 Dose: 3 ml Documented By: DOMENIC Spironolactone (Spironolactone 25 Mg Tablet) 25 mg PO DAILY [facility]; Protocol Last Admin: 10/19/23 07:54 Dose: 25 mg Documented By: KADY Tamsulosin HCl (Tamsulosin Hcl 0.4 Mg Capsule) 0.4 mg PO DAILY [facility] Last Admin: 10/20/23 09:20 Dose: 0.4 mg Documented By: DOMENIC Trazodone HCl (Trazodone Hcl 50 Mg Tablet) 50 mg PO BEDTIME MRX1 PRN PRN Reason: Insomnia Last Admin: 10/19/23 20:14 Dose: 50 mg Documented By: MARY Ziprasidone (Ziprasidone 60 Mg Capsule) 60 mg PO BID [facility] Last Admin: 10/20/23 09:19 Dose: 60 mg Documented By: DOMENIC Labs 10/19/23 06:28 10/20/23 07:05 Labs: Laboratory Results - last 24 hr 10/19/23 10/19/23 10/20/23 16:16 20:15 07:05 Hold Purple Top SEE NOTE Anion Gap 15 Estim Creat Clear Calc 19.3 Estimated GFR 16 POC Glucose 137 H 320 H Random Glucose 322 H Calcium 8.4 10/20/23 10/20/23 07:58 11:17 Hold Purple Top Anion Gap Estim Creat Clear Calc Estimated GFR POC Glucose 288 H 160 H Random Glucose Calcium Assessment and Plan (1) Nephrotic syndrome: Status: Acute (2) Acute kidney injury superimposed on chronic kidney disease: Status: Acute (3) Acute on chronic anemia: Status: Acute (4) Congestive heart failure: Status: Acute Plan 57M PMH nephrotic syndrome CKD IV, DM, cocaine use, chronic diastolic chf, depression presented with N/V acute on crhonic anemia of chronic disease/ckd IV transfused 1 unit 10/14, transfused another 10/15 hgb improved, monitor donna on CKD IV with nephrotic syndrome hold lisinopril for now creatinine increased to 3.85, monitor nephro input appreciated, continue bumex hyperactive airway continue prednisone, duonebs acute on chronic diastolic chf Improving slowly Continue po bumex I\O DM with hyperglcyemia basal bolus insulin - increased due to steroid induce hyperglycemia, monitor 3rd degree singh wound care htn - uncontrolled coreg, hydralazine, started aldactone Increase Amlodipine to 10 mg cocaine abstinence recommended dvt prophylaxis Heparin full code reason for continued hospitalization: still with unctonrolled bps, wheezing, creatinine increasing Quality Stroke Does the patient have a stroke diagnosis?: No VTE Prior VTE?: No VTE Risk Level:: Medical - moderate - high VTE Device Contraindication: Treatment Not Indicated VTE Drug Contraindication: N/A - Med Ordered
[2023-10-20 15:32] VITALS: BP 140/65; PULSE 73; RESP 18; TEMP 36.3; O2SAT 98
[2023-10-20 16:36] LABS: Glucose, Whole Blood 148 mg/dL (60-115)
[2023-10-20 19:10] VITALS: BP 168/81; PULSE 71; RESP 19; TEMP 36.2; O2SAT 99
[2023-10-20] MEDS: Albuterol/Iprat 2.5/0.5MG 3 ML AMPUL.NEB INHALE (20:53)
[2023-10-20 20:54] VITALS: PULSE 71; RESP 18; O2SAT 99
[2023-10-20 20:59] LABS: Glucose, Whole Blood 349 mg/dL (60-115)
[2023-10-20] MEDS: Bumetanide 1 MG TABLET 2 MG PO (21:11)
[2023-10-20] MEDS: diphenhydrAMINE HCL 25 MG CAPSULE PO (21:12)
[2023-10-21 03:14] VITALS: BP 156/74; PULSE 76; RESP 19; TEMP 36.4; O2SAT 99
[2023-10-21] MEDS: guaiFENesin DM 100/10/5 ML 5 ML SYRUP PO ×3 (04:48→12:58)
[2023-10-21 07:14] LABS: Hematocrit 28.8 % (42.0-52.0); Hemoglobin 9.2 g/dl (14.0-18.0); Mean Corpuscular HGB Conc 31.9 g/dl (31.0-36.0); Mean Corpuscular Hemoglobin 27.6 pg (27.0-33.0); Mean Corpuscular Volume 86.5 fL (80.0-98.0); Mean Platelet Volume 10.4 fL (9.4-12.4); Platelet Count 292 X10*3/uL (160-400); Red Blood Count 3.33 X10*6/uL (4.60-5.80); White Blood Count 14.4 X10*3/uL (4.8-10.8)
[2023-10-21 07:28] LABS: Anion Gap 15 (12-20); Blood Urea Nitrogen 109 mg/dL (9-16); Calcium 8.1 mg/dL (8.4-10.2); Carbon Dioxide 19 mmol/L (22-29); Chloride 104 mmol/L (96-108); Creatinine Clr Calc Pharmacy 20.1; Estimated Glomerular Filt Rate 17; Glucose Random 341 mg/dL (60-115); Sodium 133 mmol/L (135-145)
[2023-10-21 07:31] VITALS: BP 162/76; PULSE 76; RESP 18; TEMP 36.2; O2SAT 95
[2023-10-21 08:01] LABS: Glucose, Whole Blood 271 mg/dL (60-115)
[2023-10-21] MEDS: Insulin Lispro 100 UNIT/ML 3 ML VIAL 10 UNIT SUBCUT ×2 (09:01→12:31)
[2023-10-21] MEDS: Insulin Glargine,Hum.rec.anlog 100 UNIT/ML 10 ML VIAL 25 UNIT SUBCUT (09:02)
[2023-10-21] MEDS: Ferrous Sulfate 324 MG TABLET.DR PO (09:02)
[2023-10-21] MEDS: predniSONE 20 MG TABLET 40 MG PO (09:02)
[2023-10-21] MEDS: amLODIPine Besylate 10 MG TABLET PO (09:02)
[2023-10-21] MEDS: Bumetanide 1 MG TABLET 2 MG PO (09:02)
[2023-10-21] MEDS: Tamsulosin HCL 0.4 MG CAPSULE PO (09:02)
[2023-10-21] MEDS: Insulin Lispro 100 UNIT/ML 3 ML VIAL SUBCUT ×2 (09:02→12:31)
[2023-10-21] MEDS: hydrALAZINE HCl 50 MG TABLET 100 MG PO (09:03)
[2023-10-21] MEDS: Finasteride 5 MG TABLET PO (09:03)
[2023-10-21] MEDS: Ziprasidone 60 MG CAPSULE PO (09:03)
[2023-10-21] MEDS: carvediloL 12.5 MG TABLET PO (09:03)
[2023-10-21] MEDS: Benztropine Mesylate 0.5 MG TABLET PO (09:03)
[2023-10-21] MEDS: Spironolactone 25 MG TABLET PO (09:03)
[2023-10-21] MEDS: 0.9 % Sodium Chloride Flush 3 ML SYRINGE IVFLUSH (09:03)
[2023-10-21] MEDS: Gabapentin 100 MG CAPSULE 200 MG PO (09:03)
--- NOTE | 2023-10-21 10:55 | MHC.CM.PN ---
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
[2023-10-21 12:18] LABS: Glucose, Whole Blood 354 mg/dL (60-115)
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
== END 2023-10-21 13:57 | disposition home or self-care (01) | DRG 673 ==
LOC: HO.ED 12:35 → HO.EDOVER 13:26 → HO.IMC 19:52
PROVIDERS: Internal Medicine; Internal Medicine Nephrology; Registered Nurse Emergency; Admitting Provider Physician Assistant; Emergency Provider Emergency Medicine; PCP Internal Medicine; Visit Provider Student in an Organized Health Care Education/Training Program
DX: N17.9 Acute kidney failure, unspecified (principal); I50.33 Acute on chronic diastolic (congestive) heart failure; I13.0 Hypertensive heart and chronic kidney disease with heart failure and stage 1 through stage 4 chronic kidney disease, or unspecified chronic kidney disease; T22.312A Burn of third degree of left forearm, initial encounter; T31.10 Burns involving 10-19% of body surface with 0% to 9% third degree burns; T22.311A Burn of third degree of right forearm, initial encounter; E11.42 Type 2 diabetes mellitus with diabetic polyneuropathy; X17.XXXA Contact with hot engines, machinery and tools, initial encounter; E11.65 Type 2 diabetes mellitus with hyperglycemia; D63.1 Anemia in chronic kidney disease; F14.10 Cocaine abuse, uncomplicated; E11.22 Type 2 diabetes mellitus with diabetic chronic kidney disease; Z79.4 Long term (current) use of insulin; Z79.899 Other long term (current) drug therapy
CPT/HCPCS: 36415; 71045; 80048; 80053; 80307; 81001; 82570; 82947; 83036; 83880; 83930; 83970; 84100; 84300; 84484; 85025; 85027; 85610; 86850; 86900; 86901; 86923; 87086; 87088; 87186; 93005; 94640; 99285; J0360; J1200; J1644; P9016

== ENCOUNTER → 2023-10-14 13:20 | Outpatient (BNV) | payer OTHER, SELFPAY | PROVIDERS: Admitting Provider Physician Assistant; Emergency Provider Emergency Medicine; PCP Internal Medicine; Visit Provider Internal Medicine Nephrology | DX: I12.9 Hypertensive chronic kidney disease with stage 1 through stage 4 chronic kidney disease, or unspecified chronic kidney disease (principal); N17.9 Acute kidney failure, unspecified; N18.9 Chronic kidney disease, unspecified; D64.9 Anemia, unspecified; N04.9 Nephrotic syndrome with unspecified morphologic changes | CPT/HCPCS: 99222; 99231; 99232; 99499 ==

== ENCOUNTER → 2023-10-14 13:20 | Outpatient (BNV) | payer OTHER, SELFPAY | PROVIDERS: Admitting Provider Physician Assistant; Emergency Provider Emergency Medicine; PCP Internal Medicine; Visit Provider Surgery | DX: T22.20XA Burn of second degree of shoulder and upper limb, except wrist and hand, unspecified site, initial encounter (principal) | CPT/HCPCS: 11042; 99222 ==

== ENCOUNTER → 2023-10-14 13:20 | Outpatient (BNV) | payer OTHER, SELFPAY | PROVIDERS: Admitting Provider Physician Assistant; Emergency Provider Emergency Medicine; PCP Internal Medicine; Visit Provider Physician Assistant | DX: I12.9 Hypertensive chronic kidney disease with stage 1 through stage 4 chronic kidney disease, or unspecified chronic kidney disease (principal); N17.9 Acute kidney failure, unspecified; I50.30 Unspecified diastolic (congestive) heart failure; N18.4 Chronic kidney disease, stage 4 (severe); D64.9 Anemia, unspecified; N04.9 Nephrotic syndrome with unspecified morphologic changes; T22.20XA Burn of second degree of shoulder and upper limb, except wrist and hand, unspecified site, initial encounter | CPT/HCPCS: 99223; 99232; 99233; 99239 ==

== ENCOUNTER 2023-10-27 09:09 | Outpatient (REF) | payer OTHER, SELFPAY ==
[2023-10-27 09:58] LABS: MANUAL DIFF FLAG NO
[2023-10-27 10:28] LABS: Appearance Urine Turbid; Color Urine Yellow; Glucose Urine UA 500 mg/dL (Negative); Leukocyte Esterase Urine Large (3+) (Negative); Nitrite Urine Positive (Negative); PH 5.5 (5.0-9.0); Specific Gravity - Urine 1.015 (1.005-1.025); UMIC TRIGGER UA YES; Urine Blood Moderate (2+) (Negative); Urine Ketones Negative (Negative); Urine Protein 300 (3+) mg/dL (Neg-Trace)
[2023-10-27 10:29] LABS: Basophils Percent Auto 0.2 % (0-2); Eosinophils Absolute Auto 0.2 X10*3/uL (0.0-0.4); Eosinophils Percent Auto 1.7 % (0-4); Hematocrit 27.4 % (42.0-52.0); Hemoglobin 8.9 g/dl (14.0-18.0); Imm Gran Abs Auto 0.17 X10*3/uL (0.00-0.03); Imm Gran Pct Auto 1.3 % (0.0-0.4); Lymphocytes Absolute Auto 1.8 X10*3/uL (1.2-4.9); Mean Corpuscular HGB Conc 32.5 g/dl (31.0-36.0); Mean Corpuscular Hemoglobin 27.6 pg (27.0-33.0); Mean Corpuscular Volume 84.8 fL (80.0-98.0); Mean Platelet Volume 10.7 fL (9.4-12.4); Monocytes Percent Auto 7.8 % (2-11); Neutrophils Absolute Auto 9.8 x10*3/uL (2.0-8.3); Platelet Count 238 X10*3/uL (160-400); Red Blood Count 3.23 X10*6/uL (4.60-5.80); Red Cell Distribution Width 16.1 % (11.0-16.0)
[2023-10-27 10:34] LABS: Bacteria Urine 4+ (None Seen); Hyaline Casts Urine 0-2 /LPF (0-2); Squamous Epithelial Cell Urine 0-2 /HPF (0-2); WBC Urine >50 /HPF (0-5)
[2023-10-27 10:54] LABS: Creatinine Urine 29.39 mg/dL
[2023-10-27 10:58] LABS: Parathyroid Hormone Intact 323.7 pg/mL (8.7-77.1)
[2023-10-27 11:07] LABS: Protein/Creatinine Ratio, Ur 7.55 (<0.2); Total Protein Urine Random 222 mg/dL (<12)
[2023-10-27 11:11] LABS: Albumin Level 2.5 g/dL (3.5-5.0); Anion Gap 13 (12-20); Blood Urea Nitrogen 114 mg/dL (9-16); Calcium 7.8 mg/dL (8.4-10.2); Carbon Dioxide 18 mmol/L (22-29); Chloride 107 mmol/L (96-108); Estimated Glomerular Filt Rate 14; Phosphorus 4.6 mg/dL (2.7-4.5); Sodium 134 mmol/L (135-145)
[2023-10-27 11:23] LABS: Vitamin D 25-OH Total 6.2 ng/mL (>30)
== END 2023-10-27 09:10 | disposition home or self-care (01) ==
LOC: HO.LAB 09:09
PROVIDERS: PCP Internal Medicine; Visit Provider Internal Medicine Nephrology
DX: I12.9 Hypertensive chronic kidney disease with stage 1 through stage 4 chronic kidney disease, or unspecified chronic kidney disease (principal); N18.31 Chronic kidney disease, stage 3a
CPT/HCPCS: 36415; 80051; 81001; 82040; 82043; 82306; 82310; 82565; 82570; 83735; 83970; 84100; 84156; 84520; 85025

== ENCOUNTER 2023-10-27 15:13 | Emergency (ER) | payer OTHER, SELFPAY ==
--- NOTE | ~2023-10-27 | XR_ITS ---
EXAMINATION: XR CHEST CLINICAL INFORMATION: Shortness of breath. COMPARISON: Chest radiograph 10/14/2023. TECHNIQUE: 2 views of the chest were obtained. FINDINGS: Stable prominence of the cardiomediastinal silhouette. Increased central peribronchial cuffing. No focal consolidation. No pleural effusion or pneumothorax. Chronic right-sided rib deformities. Chronic right midclavicular fracture. No acute osseous findings. Visualized upper abdomen is within normal limits. XR/XR chest 2V IMPRESSION: 1. Increased central peribronchial cuffing which could be seen with asthma, bronchitis, reactive airways disease or atypical infections. 2. No focal consolidation.
[2023-10-27 16:11] VITALS: BP 148/88; PULSE 98; RESP 16; TEMP 36.8; O2SAT 98; BMI 26.9
--- NOTE | 2023-10-27 16:21 | ED.GENADULT ---
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 Patient reports that at baseline he has swelling in his legs/stomach. Patient also reports he has not taking his diabetic medications since this morning. Related Data Home Medications Medication Instructions Recorded Confirmed dulaglutide 1.5 mg/0.5 mL 1.5 mg subcut WE@0900 09/25/20 10/14/23 subcutaneous pen injector (Trulicity) insulin glargine 100 unit/mL (3 25 unit subcut DAILY 12/22/20 10/14/23 mL) subcutaneous pen (Lantus Solostar U-100 Insulin) insulin lispro 100 unit/mL 15 unit subcut TIDAC 12/22/20 10/14/23 subcutaneous pen (Humalog KwikPen (U-100) Insulin) diphenhydramine HCl 25 mg capsule 25 mg PO BEDTIME 04/18/23 10/14/23 (Benadryl) ferrous sulfate 325 mg (65 mg 325 mg PO DAILY 04/18/23 10/14/23 iron) tablet ramelteon 8 mg tablet 8 mg PO BEDTIME PRN Insomnia 04/18/23 10/14/23 tamsulosin 0.4 mg capsule 0.4 mg PO DAILY 04/18/23 10/14/23 ziprasidone HCl 60 mg capsule 60 mg PO BID 04/18/23 10/14/23 (Geodon) atorvastatin 80 mg tablet 80 mg PO DAILY 05/23/23 10/14/23 benztropine 0.5 mg tablet 0.5 mg DAILY 10/14/23 10/14/23 carvedilol 3.125 mg tablet 6.25 mg PO BID 10/14/23 10/14/23 lisinopril 40 mg tablet 40 mg PO DAILY 10/14/23 10/14/23 trazodone 50 mg tablet 50 - 100 mg PO BEDTIME PRN Insomnia 10/14/23 10/14/23 Previous Rx's Medication Instructions Recorded bumetanide 2 mg tablet 2 mg PO BID #60 tabs 04/27/23 melatonin 5 mg tablet 5 mg PO BEDTIME PRN sleep #30 tabs 04/27/23 amlodipine 10 mg tablet 10 mg PO DAILY #30 tabs 10/21/23 dextromethorphan-guaifenesin 10 5 ml PO Q4H PRN Cough #237 mL 10/21/23 mg-100 mg/5 mL oral syrup gabapentin 100 mg capsule 200 mg (2 x 100 mg) PO BID #120 10/21/23 caps hydralazine 50 mg tablet 100 mg PO TID #180 tabs 10/21/23 prednisone 10 mg tablet See Taper PO DIRECTED #20 tabs 10/21/23 spironolactone 25 mg tablet 25 mg PO DAILY #30 tabs 10/21/23 cefdinir 300 mg capsule 300 mg PO BID 7 days #14 caps 10/28/23 sodium bicarbonate 650 mg tablet 650 mg PO BID 30 days #60 tabs 10/28/23 Allergies Allergy/AdvReac Type Severity Reaction Status Date / Time No Known Allergies Allergy Verified 04/18/23 09:11 [No Known Allergies*] Review of Systems Review of Systems: Pertinent positives and negatives as stated in [facility] Past Medical History Source: nursing notes reviewed Medical History Nephrotic syndrome Diastolic heart failure Anemia Pneumonia Diabetic nephropathy Anemia Anemia Chronic pain syndrome Diabetic polyneuropathy Vitamin D deficiency Depression HTN (hypertension) HLD (hyperlipidemia) T2DM (type 2 diabetes mellitus) Surgical History Status post biopsy of kidney Hx of colonoscopy Hx of rotator cuff surgery Family History Family History Father Colon cancer Mother History of kidney problems T2DM (type 2 diabetes mellitus) Sister T2DM (type 2 diabetes mellitus) Social History Social History Household Members: None Housing: Apartment 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) Alcohol intake: former Comment: allowed to walk in room Patient Tobacco Use Status: Never used Tobacco Substance Use Type: Crack/Cocaine Advance Directives: No Advance Directives Information Provided: No Advance Directives Date on File: 04/28/23 service: No Current occupational status: disabled Current occupation: right handed Physical Exam ED Vital Signs: Vital Signs - 24 hr 10/27/23 16:11 10/27/23 21:55 10/27/23 23:25 Temperature 98.3 F 97.5 F Pulse Rate 98 79 77 Respiratory Rate 16 14 20 Blood Pressure 148/88 H 143/68 H 157/67 H Pulse Oximetry 98 97 98 Oxygen Delivery Method Room Air Room Air Room Air BMI result Body Mass Index 26.9 VITAL SIGNS: Reviewed. GENERAL: Well developed, well nourished, in no acute distress. HEAD: Normocephalic/atraumatic EYES: PERRLA, EOMI EARS: Ext canals without abnormality NOSE: Nares patent bilateral OROPHARYNX: no oral lesions noted, posterior pharynx clear NECK: Supple, no adenopathy LUNGS: Normal breath sounds. No adventitious sounds or accessory muscle use. SpO2<98> CARDIOVASCULAR: Regular rate and rhythm without noted murmurs, no JVD but 2+ pitting edema in bilateral lower extremities ABDOMEN: Soft, non-tender, non-distended with bowel sounds. MUSCULOSKELETAL: No tenderness, deformities, or effusions noted on gross inspection. EXTREMITIES: No cyanosis, clubbing or edema. SKIN: Inspection of the skin reveals no rashes NEUROLOGIC: Alert and oriented x 4. Strength and sensation to light touch were grossly intact x 4. Course Course Course Narrative: This is an RME: Additional HPI, ROS, PE not included below will be deferred to primary provider. This is a 58-year-old male with a history of nephrotic syndrome, CHF hypertension, anemia, chronic kidney disease, presenting to the emergency department for evaluation of facial swelling that worsens with lying down. He has a history of CHF. He states that he has had intermittent shortness of breath. Patient is nontoxic appearing, vital signs within normal limits. Plan: Labs, UA, CXR, EKG Received critical lab of a creatinine of 4.43, informed charge nurse to bring patient back urgently given findings. Medications Administered Discontinued Medications Generic Name Dose Route Start Last Admin Trade Name Freq PRN Reason Stop Dose Admin Bumetanide 2 mg 10/28/23 00:08 10/28/23 00:34 Bumetanide 1 Mg Tablet PO 10/28/23 00:09 2 mg ONCE ONE Administration Protocol Sodium Chloride 500 mls @ 999 mls/hr 10/27/23 22:15 10/27/23 22:59 Ns IV 10/27/23 22:45 Infused .Q31M BRENNEN Infusion Insulin Human Lispro 6 unit 10/27/23 22:43 10/27/23 23:06 Insulin Lispro 100 Unit/Ml 3 Ml Vial SUBCUT 10/27/23 22:44 6 unit ONCE ONE Administration Medical Decision Making Medical Decision Making MDM Narrative: 58-year-old male with history and clinical presentation most consistent with worsening of chronic conditions. Clinically, patient otherwise appears well. I reviewed all investigations and hematologic indices are chronically stable, with a chronic leukocytosis and left shift, chronic normocytic anemia likely of chronic disease and no thrombocytopenia. Chemistry indices demonstrate a pseudohyponatremia secondary to hyperglycemia and although it does appear that patient has a non-anion gap metabolic acidosis I feel that this is more attributable to his recent worsening renal function. There are no electrolyte or liver enzyme derangements. Although the BNP is elevated at 641 this is much improved when compared to earlier values and I feel it is also erroneously elevated secondary to worsening renal function. Patient is not exhibiting any evidence of tachypnea/shortness of breath/hypoxia. Chest x-ray without infiltrate and otherwise my interpretation is in agreement with radiology's impression. Patient given 6 units of subcutaneous insulin. 2342: Place a call to Nephrology to better understand how they would like to proceed. 2355: Reviewed all lab work and clinical findings with Dr. Burch who agrees with the current analysis that patient likely does not need to be admitted since he is not in fluid overload and is not presenting with uremic symptoms. He does recommend that if patient is not currently on oral sodium bicarb that he be discharged with 650 mg b.i.d. 0000: Patient remains stable and non hypoxic, all results and findings discussed with him at bedside, his repeat point of care glucose-360. He understands that he will be able to go home. Urinalysis was returned as containing an infection, patient had left prior to initial antibiotics. A script for antibiotics was sent to his pharmacy and he will start the medication tomorrow. Differential Diagnosis Differential Diagnoses: The differential diagnosis associated with the presentation includes Please see the discussion above Admission/Observation Consideration of admission/observation: Escalation of care including admission/observation considered Please see the discussion above Consult Healthcare Provider Management of the patient was discussed with: Funder Please see the discussion above Lab Data MDM Lab Attestation statement: I reviewed the patient's lab results. Please see the discussion above 10/27/23 18:23 10/27/23 18:23 Labs: Lab Results 10/27/23 10/27/23 10/27/23 Range/Units 18:23 22:33 23:58 WBC 13.7 H (4.8-10.8) X10*3/uL RBC 3.40 L (4.60-5.80) X10*6/uL Hgb 9.3 L (14.0-18.0) g/dl Hct 28.8 L (42.0-52.0) % MCV 84.7 (80.0-98.0) fL MCH 27.4 (27.0-33.0) pg MCHC 32.3 (31.0-36.0) g/dl RDW 15.9 (11.0-16.0) % Plt Count 236 (160-400) X10*3/uL MPV 10.6 (9.4-12.4) fL Immature Gran % (Auto) 1.4 H (0.0-0.4) % Neut % (Auto) 90.3 H (45-73) % Lymph % (Auto) 6.3 L (20-40) % [place] % (Auto) 1.8 L (2-11) % Eos % (Auto) 0.1 (0-4) % Baso % (Auto) 0.1 (0-2) % Lymph # (Auto) 0.9 L (1.2-4.9) X10*3/uL [place] # (Auto) 0.3 (0.1-1.2) X10*3/uL Eos # (Auto) 0.0 (0.0-0.4) X10*3/uL Baso # (Auto) 0.0 (0.0-0.2) X10*3/uL Abs Immat Gran (auto) 0.19 H (0.00-0.03) X10*3/uL Absolute Neuts (auto) 12.4 H (2.0-8.3) x10*3/uL Absolute Nucleated RBC 0.000 (0.0-0.012) X10*3/uL Nucleated RBC % (auto) 0.0 (0.0-0.2) /100WBC Smear Tech's Comments VERIFIED Sodium 132 L (135-145) mmol/L Potassium 5.0 D (3.3-5.1) mmol/L Chloride 105 (96-108) mmol/L Carbon Dioxide 15 L (22-29) mmol/L Anion Gap 17 (12-20) BUN 111 H (9-16) mg/dL Creatinine 4.43 H* (0.5-1.4) mg/dL Estim Creat Clear Calc 16.2 Estimated GFR 14 POC Glucose 415 H* 360 H* (60-115) mg/dL Random Glucose 539 H* (60-115) mg/dL Calcium 8.0 L (8.4-10.2) mg/dL Total Bilirubin 0.2 (0.0-1.0) mg/dL Direct Bilirubin < 0.2 (0.0-0.5) mg/dL AST 11 (5-37) U/L ALT 17 (0-40) U/L Alkaline Phosphatase 91 (39-117) U/L Troponin I High Sens 8.0 (<3.5-35.0) ng/L B-Natriuretic Peptide 641 H (<100) pg/mL Total Protein 6.6 (6.5-8.0) g/dL Albumin 2.6 L (3.5-5.0) g/dL Beta-Hydroxybutyrate 0.10 (0.02-0.27) mmol/L Urine Color Urine Appearance Urine pH (5.0-9.0) Ur Specific [place] (1.005-1.025) Urine Protein (Neg-Trace) mg/dL Urine Glucose (UA) (Negative) mg/dL Urine Ketones (Negative) mg/dL Urine Blood (Negative) Urine Nitrite (Negative) Ur Leukocyte Esterase (Negative) Urine RBC (0-2) /HPF Urine WBC (0-5) /HPF Ur Squamous Epith Cells (0-2) /HPF Urine Bacteria (None Seen) Hyaline Casts (0-2) /LPF Influenza Type A (PCR) NEGATIVE (Negative) Influenza Type B (PCR) NEGATIVE (Negative) RSV RNA Qual (PCR) NEGATIVE (Negative) SARS-CoV-2 RNA (RT-PCR) NEGATIVE (Negative) 10/28/23 Range/Units 00:01 WBC (4.8-10.8) X10*3/uL RBC (4.60-5.80) X10*6/uL Hgb (14.0-18.0) g/dl Hct (42.0-52.0) % MCV (80.0-98.0) fL MCH (27.0-33.0) pg MCHC (31.0-36.0) g/dl RDW (11.0-16.0) % Plt Count (160-400) X10*3/uL MPV (9.4-12.4) fL Immature Gran % (Auto) (0.0-0.4) % Neut % (Auto) (45-73) % Lymph % (Auto) (20-40) % [place] % (Auto) (2-11) % Eos % (Auto) (0-4) % Baso % (Auto) (0-2) % Lymph # (Auto) (1.2-4.9) X10*3/uL [place] # (Auto) (0.1-1.2) X10*3/uL Eos # (Auto) (0.0-0.4) X10*3/uL Baso # (Auto) (0.0-0.2) X10*3/uL Abs Immat Gran (auto) (0.00-0.03) X10*3/uL Absolute Neuts (auto) (2.0-8.3) x10*3/uL Absolute Nucleated RBC (0.0-0.012) X10*3/uL Nucleated RBC % (auto) (0.0-0.2) /100WBC Smear Tech's Comments Sodium (135-145) mmol/L Potassium (3.3-5.1) mmol/L Chloride (96-108) mmol/L Carbon Dioxide (22-29) mmol/L Anion Gap (12-20) BUN (9-16) mg/dL Creatinine (0.5-1.4) mg/dL Estim Creat Clear Calc Estimated GFR POC Glucose (60-115) mg/dL Random Glucose (60-115) mg/dL Calcium (8.4-10.2) mg/dL Total Bilirubin (0.0-1.0) mg/dL Direct Bilirubin (0.0-0.5) mg/dL AST (5-37) U/L ALT (0-40) U/L Alkaline Phosphatase (39-117) U/L Troponin I High Sens (<3.5-35.0) ng/L B-Natriuretic Peptide (<100) pg/mL Total Protein (6.5-8.0) g/dL Albumin (3.5-5.0) g/dL Beta-Hydroxybutyrate (0.02-0.27) mmol/L Urine Color Yellow Urine Appearance Cloudy Urine pH 6.0 (5.0-9.0) Ur Specific [place] 1.015 (1.005-1.025) Urine Protein 300 (3+) H (Neg-Trace) mg/dL Urine Glucose (UA) >=1000 H (Negative) mg/dL Urine Ketones Negative (Negative) mg/dL Urine Blood Small (1+) H (Negative) Urine Nitrite Positive H (Negative) Ur Leukocyte Esterase Moderate (2+) H (Negative) Urine RBC 6-10 H (0-2) /HPF Urine WBC >50 H (0-5) /HPF Ur Squamous Epith Cells 0-2 (0-2) /HPF Urine Bacteria 3+ (None Seen) Hyaline Casts 0-2 (0-2) /LPF Influenza Type A (PCR) (Negative) Influenza Type B (PCR) (Negative) RSV RNA Qual (PCR) (Negative) SARS-CoV-2 RNA (RT-PCR) (Negative) Radiology Impression Discussion of test interpretation with radiology: I have reviewed the radiologist's reading. Radiologist Impression: Please see the discussion above External Record Review External record reviewed: Outpatient record, Prior outpatient labs and Prior outpatient radiology Chronic Conditions Patient?s care impacted by: Diabetes, Hypertension and Other CKD Critical Care Time Critical Care Time Critical Care Time: Yes Total Critical Care Time: 30 Attestation: I personally attest to this time spent taking care of the patient. Discharge Plan Discharge Clinical Impression: CKD (chronic kidney disease), Hyperglycemia due to diabetes mellitus, Acute UTI Patient Disposition: Home, Self-Care Instructions: Urinary Tract Infection in Men (ED), Chronic Kidney Disease (ED), Diabetic Hyperglycemia (ED) Additional Instructions: 1. Reanudar todos los medicamentos caseros seg?n lo recetado. 2. Contin?e tomando juan diego medicamentos para la diabetes seg?n lo recetado. 3. Germania un seguimiento con wilson nefr?logo y proveedor de atenci?n primaria por la ma?gera. Regrese a la chio de emergencias si los s?ntomas empeoran. 1. Resume all home medications as prescribed. 2. Please continues to take your diabetic medication as prescribed. 3. Please follow-up with your interpreter deaf and primary care provider in the morning. Return to the ER for any worsening symptoms. Prescriptions: New sodium bicarbonate 650 mg tablet 650 mg PO BID 30 Days Qty: 60 0RF cefdinir 300 mg capsule 300 mg PO BID 7 Days Qty: 14 0RF No Action tamsulosin 0.4 mg capsule 0.4 mg PO DAILY diphenhydramine HCl [Benadryl] 25 mg capsule 25 mg PO BEDTIME ferrous sulfate 325 mg (65 mg iron) tablet 325 mg PO DAILY ziprasidone HCl [Geodon] 60 mg capsule 60 mg PO BID ramelteon 8 mg tablet 8 mg PO BEDTIME PRN (Reason: Insomnia) bumetanide 2 mg tablet 2 mg PO BID Qty: 60 0RF melatonin 5 mg tablet 5 mg PO BEDTIME PRN (Reason: sleep) Qty: 30 0RF atorvastatin 80 mg tablet 80 mg PO DAILY benztropine 0.5 mg tablet 0.5 mg DAILY trazodone 50 mg tablet 50 - 100 mg PO BEDTIME PRN (Reason: Insomnia) carvedilol 3.125 mg tablet 6.25 mg PO BID lisinopril 40 mg tablet 40 mg PO DAILY Hold Instructions: Discuss with your interpreter deaf if you need to restart it or not after repeating the blood work. spironolactone 25 mg Tablet 25 mg PO DAILY Qty: 30 1RF Protocol: Hold for SBP< HOLD for SBP < : 90 amlodipine 10 mg Tablet 10 mg PO DAILY Qty: 30 1RF Protocol: Hold for SBP< HOLD for SBP < : 90 hydralazine 50 mg Tablet 100 mg PO TID Qty: 180 2RF Protocol: Hold for SBP< HOLD for SBP < : 90 prednisone 10 mg tablet See Taper PO DIRECTED Qty: 20 0RF Taper: Prednisone 30 mg daily for 3 Days and 0 Hour 20 mg daily for 3 Days and 0 Hour 10 mg daily for 3 Days and 0 Hour Rx Instructions: see taper instructions dextromethorphan-guaifenesin 10-100 mg/5 mL Syrup 5 ml PO Q4H PRN (Reason: Cough) Qty: 237 1RF gabapentin 100 mg capsule 200 mg PO BID Qty: 120 1RF Trulicity 1.5 mg/0.5 mL pen injector 1.5 mg subcut WE@0900 Lantus Solostar U-100 Insulin 100 unit/mL (3 mL) insulin pen 25 unit subcut DAILY insulin lispro [Humalog KwikPen Insulin] 100 unit/mL insulin pen 15 unit subcut TIDAC Referrals: Mikaela Cano MD [Emergency Provider] - Quang Cantu MD [Physician] - Interventions: ED Discharge Assessment Last Done: 10/28/23 00:38 Print Language: Danish
[2023-10-27 18:36] LABS: Basophils Percent Auto 0.1 % (0-2); Eosinophils Percent Auto 0.1 % (0-4); Hematocrit 28.8 % (42.0-52.0); Hemoglobin 9.3 g/dl (14.0-18.0); Imm Gran Abs Auto 0.19 X10*3/uL (0.00-0.03); Imm Gran Pct Auto 1.4 % (0.0-0.4); Lymphocytes Absolute Auto 0.9 X10*3/uL (1.2-4.9); Lymphocytes Percent Auto 6.3 % (20-40); MANUAL DIFF FLAG SCAN; Mean Corpuscular HGB Conc 32.3 g/dl (31.0-36.0); Mean Corpuscular Hemoglobin 27.4 pg (27.0-33.0); Mean Corpuscular Volume 84.7 fL (80.0-98.0); Mean Platelet Volume 10.6 fL (9.4-12.4); Monocytes Absolute Auto 0.3 X10*3/uL (0.1-1.2); Monocytes Percent Auto 1.8 % (2-11); Neutrophils Absolute Auto 12.4 x10*3/uL (2.0-8.3); Neutrophils Percent Auto 90.3 % (45-73); Platelet Count 236 X10*3/uL (160-400); Red Cell Distribution Width 15.9 % (11.0-16.0); SCAN SMEAR FLAG 1; White Blood Count 13.7 X10*3/uL (4.8-10.8)
[2023-10-27 18:53] LABS: B Type Natriuretic Peptide 641 pg/mL (<100)
--- NOTE | 2023-10-27 18:55 | P.CONNP_ITS ---
History of Present Illness Reason for Consult Consult date: 10/27/23 Chief Complaint Chief complaint: ?ALLERGIC REACTION/SWELLING History of Present Illness Narrative: RTANE consulted for KWAME, CKD 4 Last seen in office 10/10/23 for adv CKD and hypervol I switched his PO lasix to BUMEX and [facility] and was d/c sev days ago. PT family contacted me today concerned about doing poorly. I told him to come to er given his KWAME and hypervol and failing outpt medical treatment. I came to ER and he was still in waiting room. Accompnaied by family member and they recognized me and thanked me for mtg him in the ER. I explained to him that he needs to be adm to the hospital and we need to reasses his treatment. Depending on his response to diuretics he may ultimately need Dialysis this admission given his repeated admission and what appears to be failing medical treatment. 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 He deneis usinf cocaine but we need to rule this out as well. I expalined to PT that he has been seeing two different kidney groups and he stated he wanted me to take care of his kidney problems and clearly remembered seeing me in the office on 09/2023. Full consult to follow [facility] Past Medical History Medical History (Updated 10/16/23 @ 19:48 by Vanessa Linares MD) Nephrotic syndrome Diastolic heart failure Anemia Pneumonia Diabetic nephropathy Anemia Anemia Chronic pain syndrome Diabetic polyneuropathy Vitamin D deficiency Depression HTN (hypertension) HLD (hyperlipidemia) T2DM (type 2 diabetes mellitus) Family History Family History Father Colon cancer Mother History of kidney problems T2DM (type 2 diabetes mellitus) Sister T2DM (type 2 diabetes mellitus) Surgical History Surgical History Status post biopsy of kidney Hx of colonoscopy Hx of rotator cuff surgery Social History Social History Household Members: None Housing: Apartment 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) Alcohol intake: former Comment: allowed to walk in room Patient Tobacco Use Status: Never used Tobacco Substance Use Type: Crack/Cocaine Advance Directives Date on File: 04/28/23 service: No Current occupational status: disabled Current occupation: right handed Meds Allergies Allergy/AdvReac Type Severity Reaction Status Date / Time No Known Allergies Allergy Verified 04/18/23 09:11 [No Known Allergies*] Home Medications Medication Instructions Recorded Confirmed Last Taken Type dulaglutide 1.5 mg/0.5 mL 1.5 mg subcut WE@0900 09/25/20 10/14/23 10/12/23 History subcutaneous pen injector (Trulicity) insulin glargine 100 unit/mL (3 25 unit subcut DAILY 12/22/20 10/14/23 01/30/23 History mL) subcutaneous pen (Lantus Solostar U-100 Insulin) insulin lispro 100 unit/mL 15 unit subcut TIDAC 12/22/20 10/14/23 04/18/23 History subcutaneous pen (Humalog KwikPen (U-100) Insulin) diphenhydramine HCl 25 mg capsule 25 mg PO BEDTIME 04/18/23 10/14/23 Unknown History (Benadryl) ferrous sulfate 325 mg (65 mg 325 mg PO DAILY 04/18/23 10/14/23 Unknown History iron) tablet ramelteon 8 mg tablet 8 mg PO BEDTIME PRN Insomnia 04/18/23 10/14/23 04/17/23 History tamsulosin 0.4 mg capsule 0.4 mg PO DAILY 04/18/23 10/14/23 Unknown History ziprasidone HCl 60 mg capsule 60 mg PO BID 04/18/23 10/14/23 Unknown History (Geodon) atorvastatin 80 mg tablet 80 mg PO DAILY 05/23/23 10/14/23 Unknown History benztropine 0.5 mg tablet 0.5 mg DAILY 10/14/23 10/14/23 Unknown History carvedilol 3.125 mg tablet 6.25 mg PO BID 10/14/23 10/14/23 Unknown History lisinopril 40 mg tablet 40 mg PO DAILY 10/14/23 10/14/23 Unknown History trazodone 50 mg tablet 50 - 100 mg PO BEDTIME PRN Insomnia 10/14/23 10/14/23 Unknown History Physical Exam Vital Signs: Last Vital Signs Temp 98.3 F 10/27/23 16:11 Pulse 98 10/27/23 16:11 Resp 16 10/27/23 16:11 BP 148/88 H 10/27/23 16:11 Pulse Ox 98 10/27/23 16:11 O2 Del Method Room Air 10/27/23 16:11 BMI result Body Mass Index 26.9 Results Lab Results 10/27/23 18:23 10/27/23 18:23 Procedures Date of Service Date of Service: 10/27/23
[2023-10-27 18:59] LABS: SLIDE REVIEW VERIFIED
[2023-10-27 19:00] LABS: Alanine Aminotransferase 17 U/L (0-40); Albumin Level 2.6 g/dL (3.5-5.0); Alkaline Phosphatase 91 U/L (39-117); Anion Gap 17 (12-20); Aspartate Amino Transferase 11 U/L (5-37); Bilirubin Direct < 0.2 mg/dL (0.0-0.5); Bilirubin Total 0.2 mg/dL (0.0-1.0); Blood Urea Nitrogen 111 mg/dL (9-16); Carbon Dioxide 15 mmol/L (22-29); Chloride 105 mmol/L (96-108); Creatinine Clr Calc Pharmacy 16.2; Estimated Glomerular Filt Rate 14; Glucose Random 539 mg/dL (60-115); Sodium 132 mmol/L (135-145); Total Protein 6.6 g/dL (6.5-8.0)
[2023-10-27 19:09] LABS: Influenza A PCR NEGATIVE (Negative); Influenza B PCR NEGATIVE (Negative); Resp Syncy Virus RNA Qual PCR NEGATIVE (Negative); SARS COV2 PCR INHOUSE NEGATIVE (Negative)
[2023-10-27 21:55] VITALS: BP 143/68; PULSE 79; RESP 14; O2SAT 97
[2023-10-27] MEDS: 0.9 % Sodium Chloride 500 ML 999 ML IV (22:25)
[2023-10-27 22:38] LABS: Glucose, Whole Blood 415 mg/dL (60-115)
[2023-10-27] MEDS: Insulin Lispro 100 UNIT/ML 3 ML VIAL 6 UNIT SUBCUT (23:06)
[2023-10-27 23:25] VITALS: BP 157/67; PULSE 77; RESP 20; TEMP 36.4; O2SAT 98
--- NOTE | 2023-10-27 23:27 | MHC.EDTECH ---
This tech assumed care of patient at 2300,hourly rounds and vitals completed and resting comfortably at this time,family at bedside and call grayson within reach
[2023-10-28 00:05] LABS: Glucose, Whole Blood 360 mg/dL (60-115)
[2023-10-28 00:12] LABS: Appearance Urine Cloudy; Color Urine Yellow; Glucose Urine UA >=1000 mg/dL (Negative); Leukocyte Esterase Urine Moderate (2+) (Negative); Nitrite Urine Positive (Negative); Specific Gravity - Urine 1.015 (1.005-1.025); UMIC TRIGGER UACC YES; Urine Blood Small (1+) (Negative); Urine Ketones Negative (Negative); Urine Protein 300 (3+) mg/dL (Neg-Trace)
[2023-10-28 00:14] LABS: Bacteria Urine 3+ (None Seen); Hyaline Casts Urine 0-2 /LPF (0-2); Squamous Epithelial Cell Urine 0-2 /HPF (0-2); UACC Culture Trigger YES; WBC Urine >50 /HPF (0-5)
[2023-10-28] MEDS: Bumetanide 1 MG TABLET 2 MG PO (00:34)
== END 2023-10-28 00:53 | disposition home or self-care (01) ==
PROVIDERS: Physician Assistant Medical; Emergency Provider Student in an Organized Health Care Education/Training Program; PCP Internal Medicine
DX: E11.22 Type 2 diabetes mellitus with diabetic chronic kidney disease (principal); E11.65 Type 2 diabetes mellitus with hyperglycemia; I13.0 Hypertensive heart and chronic kidney disease with heart failure and stage 1 through stage 4 chronic kidney disease, or unspecified chronic kidney disease; N18.9 Chronic kidney disease, unspecified; I50.30 Unspecified diastolic (congestive) heart failure; N39.0 Urinary tract infection, site not specified; R60.0 Localized edema; R06.02 Shortness of breath; Z20.822 Contact with and (suspected) exposure to COVID-19; Z20.828 Contact with and (suspected) exposure to other viral communicable diseases; E78.5 Hyperlipidemia, unspecified; Z79.4 Long term (current) use of insulin; Z79.02 Long term (current) use of antithrombotics/antiplatelets; Z79.899 Other long term (current) drug therapy
CPT/HCPCS: 0241U; 36415; 71046; 80048; 80076; 81001; 82010; 82947; 83880; 84484; 85025; 87086; 87088; 87186; 96360; 99284

== ENCOUNTER 2023-11-05 01:33 | Emergency (ER) | payer OTHER, SELFPAY ==
--- NOTE | ~2023-11-05 | CT_ITS ---
EXAMINATION: CT ABDOMEN AND PELVIS WITHOUT CONTRAST CLINICAL INFORMATION: Left hip pain. COMPARISON: 05/23/2023 and 04/18/2023 TECHNIQUE: Multidetector volumetric imaging was performed from the superior aspect of the liver through the pubic symphysis. Sagittal and coronal reformatted images were obtained on the technologist's workstation. This CT examination was performed using dose optimization techniques as appropriate, variously including the following: *Automated exposure control *Adjustment of mA and/or kV according to patient size (this includes techniques or standardized protocols for targeted exams where dose is matched to indication/reason for exam; i.e. extremities or head) *Use of iterative reconstruction technique DLP: 845 mGy-cm FINDINGS: LUNG BASES: Subsegmental atelectasis in the lower lungs. Cardiomegaly. Coronary calcifications. LIVER, GALLBLADDER, AND BILIARY TREE: The liver is normal in size, shape, and attenuation. A previously described low-attenuation focus adjacent to the gallbladder has decreased in size compared to the prior is now only faintly evident. There is overlying retraction of the liver capsule, which is new from prior. No intra or extrahepatic biliary dilatation.. Cholelithiasis. PANCREAS: Unremarkable. SPLEEN: Unremarkable. ADRENAL GLANDS: Unremarkable. KIDNEYS AND URETERS: The kidneys are normal in size, shape, and attenuation. No hydronephrosis, hydroureter, or calculi seen. No perinephric stranding. BLADDER: Moderately distended. GASTROINTESTINAL TRACT: No intestinal obstruction or inflammation. Moderate constipation. Normal appendix. ABDOMINAL WALL: Anasarca. LYMPH NODES: Normal. VASCULAR: Aorta is atherosclerotic but normal caliber. PELVIC VISCERA: Mild prostatomegaly. OSSEOUS STRUCTURES: No acute or suspicious osseous abnormalities. Left hip joint in particular is intact. CT/CT abdomen pelvis wo IV con IMPRESSION: * No acute findings within the abdomen or pelvis to explain the patient's symptomatology. * Left hip joint is intact. No fractures. * Cholelithiasis. Interestingly, on the prior examination there was a 2.5 cm low-attenuation focus adjacent to the gallbladder which has nearly resolved, with overlying retraction of the liver capsule having developed in the interim. This may represent a convalescent infectious/inflammatory process. * Moderate constipation. * Anasarca.
--- NOTE | ~2023-11-05 | CT_ITS ---
EXAMINATION: CT HEAD WITHOUT CONTRAST CLINICAL INFORMATION: Head injury COMPARISON: 07/10/2018 TECHNIQUE: Contiguous axial imaging was performed from the skull base to vertex without intravenous administration of contrast. This CT examination was performed using dose optimization techniques as appropriate, variously including the following: *Automated exposure control *Adjustment of mA and/or kV according to patient size (this includes techniques or standardized protocols for targeted exams where dose is matched to indication/reason for exam; i.e. extremities or head) *Use of iterative reconstruction technique DLP: 707 mGy-cm FINDINGS: There is no evidence of acute intracranial hemorrhage or territorial infarction. No abnormal mass effect or midline shift is seen. [place] to white matter differentiation is well preserved. No extra-axial fluid collections are identified. No hydrocephalus. No significant volume loss. There is no abnormal attenuation within the brain parenchyma. No acute osseous or soft tissue abnormality. The mastoid air cells and visualized portions of the paranasal sinuses are well aerated. mGy-cm CT/CT head/brain wo IV con IMPRESSION: No acute intracranial pathology.
--- NOTE | ~2023-11-05 | XR_ITS ---
EXAMINATION: XR HIP, LEFT CLINICAL INFORMATION: Fall COMPARISON: None available. TECHNIQUE: Two views of the left hip. FINDINGS: No fracture. Alignment is anatomic. Hip joint space is maintained. Soft tissues are unremarkable. Vascular calcifications. XR/XR hip LT w PEL1V IMPRESSION: Normal left hip.
[2023-11-05 01:34] VITALS: BP 131/56; PULSE 79; RESP 18; TEMP 36.8; O2SAT 97; BMI 26.9
--- NOTE | 2023-11-05 02:02 | ED_ITS ---
HPI - Fall General Chief Complaint: Fall Stated Complaint: fall Time Seen by Provider: 11/05/23 01:55 History of Present Illness HPI Narrative: Patient is a 60-year-old male was sleeping in a chair subsequently fell out on to the floor. Patient question hit is head. Denies any loss of consciousness. There is no nausea no vomiting. There is no focal weakness. Complaining of pain mainly to the left hip area. The pain is sharp. It is worse with movement of the hip. Patient from home. No fever no chills no cough no congestion. No history of bone blood thinners. Related Data Home Medications Medication Instructions Recorded Confirmed dulaglutide 1.5 mg/0.5 mL 1.5 mg subcut WE@0900 09/25/20 10/14/23 subcutaneous pen injector (Trulicity) insulin glargine 100 unit/mL (3 25 unit subcut DAILY 12/22/20 10/14/23 mL) subcutaneous pen (Lantus Solostar U-100 Insulin) insulin lispro 100 unit/mL 15 unit subcut TIDAC 12/22/20 10/14/23 subcutaneous pen (Humalog KwikPen (U-100) Insulin) diphenhydramine HCl 25 mg capsule 25 mg PO BEDTIME 04/18/23 10/14/23 (Benadryl) ferrous sulfate 325 mg (65 mg 325 mg PO DAILY 04/18/23 10/14/23 iron) tablet ramelteon 8 mg tablet 8 mg PO BEDTIME PRN Insomnia 04/18/23 10/14/23 tamsulosin 0.4 mg capsule 0.4 mg PO DAILY 04/18/23 10/14/23 ziprasidone HCl 60 mg capsule 60 mg PO BID 04/18/23 10/14/23 (Geodon) atorvastatin 80 mg tablet 80 mg PO DAILY 05/23/23 10/14/23 benztropine 0.5 mg tablet 0.5 mg DAILY 10/14/23 10/14/23 carvedilol 3.125 mg tablet 6.25 mg PO BID 10/14/23 10/14/23 lisinopril 40 mg tablet 40 mg PO DAILY 10/14/23 10/14/23 trazodone 50 mg tablet 50 - 100 mg PO BEDTIME PRN Insomnia 10/14/23 10/14/23 Previous Rx's Medication Instructions Recorded bumetanide 2 mg tablet 2 mg PO BID #60 tabs 04/27/23 melatonin 5 mg tablet 5 mg PO BEDTIME PRN sleep #30 tabs 04/27/23 amlodipine 10 mg tablet 10 mg PO DAILY #30 tabs 10/21/23 dextromethorphan-guaifenesin 10 5 ml PO Q4H PRN Cough #237 mL 10/21/23 mg-100 mg/5 mL oral syrup gabapentin 100 mg capsule 200 mg (2 x 100 mg) PO BID #120 10/21/23 caps hydralazine 50 mg tablet 100 mg PO TID #180 tabs 10/21/23 prednisone 10 mg tablet See Taper PO DIRECTED #20 tabs 10/21/23 spironolactone 25 mg tablet 25 mg PO DAILY #30 tabs 10/21/23 cefdinir 300 mg capsule 300 mg PO BID 7 days #14 caps 10/28/23 sodium bicarbonate 650 mg tablet 650 mg PO BID 30 days #60 tabs 10/28/23 Allergies Allergy/AdvReac Type Severity Reaction Status Date / Time No Known Allergies Allergy Verified 11/05/23 01:38 [No Known Allergies*] Review of Systems Review of Systems: Positive pain to the left hip Yes all other systems are reviewed and are negative PMFSH Past Medical History Medical History Congestive heart failure Nephrotic syndrome Diastolic heart failure Anemia Pneumonia Diabetic nephropathy Anemia Anemia Chronic pain syndrome Diabetic polyneuropathy Vitamin D deficiency Depression HTN (hypertension) HLD (hyperlipidemia) T2DM (type 2 diabetes mellitus) Surgical History Status post biopsy of kidney Hx of colonoscopy Hx of rotator cuff surgery Family History Family History Father Colon cancer Mother History of kidney problems T2DM (type 2 diabetes mellitus) Sister T2DM (type 2 diabetes mellitus) Social History Social History Household Members: None Housing: Apartment Do you presently have visiting nurse or other home services: Yes (it security manager) Alcohol intake: former Comment: allowed to walk in room Patient Tobacco Use Status: Never used Tobacco Substance Use Type: Crack/Cocaine Advance Directives: Yes Advance Directives on File: Yes Advance Directives Date on File: 04/28/23 service: No Current occupational status: disabled Current occupation: right handed Physical Exam Vital Signs: Vital Signs: Last Vital Signs Temp 98.2 F 11/05/23 01:34 Pulse 79 11/05/23 01:34 Resp 18 11/05/23 01:34 BP 131/56 L 11/05/23 01:34 Pulse Ox 97 11/05/23 01:34 O2 Del Method Room Air 11/05/23 01:34 BMI result Body Mass Index 26.9 Appearance: Alert. Oriented X3. No acute distress. Eyes: Pupils equal, round and reactive to light. ENT: Pharynx normal. There is no midface tenderness there is no malocclusion there is no Finnegan sign there is no scalp hematoma Neck: Normal inspection. Neck supple. No lymph nodes noted. No crepitus CVS: Normal heart rate and rhythm. Pulses normal. Normal S1 and S2 Respiratory: No respiratory distress. Breath sounds normal. No Wheezing. No rales Abdomen: Soft and nontender. No rigidity. No distention. good BS x4 Skin: Skin warm and dry. Normal skin color. Normal skin turgor. Extremities: Positive pain on movement of the left hip. Distal pulses intact sensation intact pain in the hip with movement. Neuro: Oriented X 3. No motor deficit. No sensory deficit. Moving all extermities. No slurred speech Medical Decision Making Medical Decision Making [facility] Narrative: Patient status post fall accidental in nature question hit his head complaining of excruciating hip pain. The x-ray of the hip was grossly negative by my interpretation. No acute fracture. CT scan of the head and abdomen showed no acute fracture no acute bleeding per radiology. Will discharge patient home close follow-up on an outpatient basis. Differential Diagnosis Differential Diagnoses: The differential diagnosis associated with the presentation includes Contusion, head injury Admission/Observation Consideration of admission/observation: Escalation of care including admission/observation considered Well-appearing pain control will discharge home Lab Data [facility] Lab Attestation statement: I reviewed the patient's lab results. Labs: Lab Results 11/05/23 Range/Units 02:35 POC Glucose 222 H (60-115) mg/dL Independent Interpretation I performed an independent interpretation of an: Plain X-Ray (Left hip x-ray grossly negative) and CT Scan (CT head negative for bleed) Radiology Impression Discussion of test interpretation with radiology: I have reviewed the radiologist's reading. Independent Historian Patient's family Discharge Plan Discharge Clinical Impression: Head injury Patient Disposition: Home, Self-Care Instructions: Head Injury (ED), Contusion in Adults (ED) Additional Instructions: Tylenol for pain. You may take 2 tablets of the 325 mg Tylenol every 6 hours for pain Prescriptions: No Action tamsulosin 0.4 mg capsule 0.4 mg PO DAILY diphenhydramine HCl [Benadryl] 25 mg capsule 25 mg PO BEDTIME ferrous sulfate 325 mg (65 mg iron) tablet 325 mg PO DAILY ziprasidone HCl [Geodon] 60 mg capsule 60 mg PO BID ramelteon 8 mg tablet 8 mg PO BEDTIME PRN (Reason: Insomnia) bumetanide 2 mg tablet 2 mg PO BID Qty: 60 0RF melatonin 5 mg tablet 5 mg PO BEDTIME PRN (Reason: sleep) Qty: 30 0RF atorvastatin 80 mg tablet 80 mg PO DAILY benztropine 0.5 mg tablet 0.5 mg DAILY trazodone 50 mg tablet 50 - 100 mg PO BEDTIME PRN (Reason: Insomnia) carvedilol 3.125 mg tablet 6.25 mg PO BID lisinopril 40 mg tablet 40 mg PO DAILY Hold Instructions: Discuss with your fusing furnace loader if you need to restart it or not after repeating the blood work. spironolactone 25 mg Tablet 25 mg PO DAILY Qty: 30 1RF Protocol: Hold for SBP< HOLD for SBP < : 90 amlodipine 10 mg Tablet 10 mg PO DAILY Qty: 30 1RF Protocol: Hold for SBP< HOLD for SBP < : 90 hydralazine 50 mg Tablet 100 mg PO TID Qty: 180 2RF Protocol: Hold for SBP< HOLD for SBP < : 90 prednisone 10 mg tablet See Taper PO DIRECTED Qty: 20 0RF Taper: Prednisone 30 mg daily for 3 Days and 0 Hour 20 mg daily for 3 Days and 0 Hour 10 mg daily for 3 Days and 0 Hour Rx Instructions: see taper instructions dextromethorphan-guaifenesin 10-100 mg/5 mL Syrup 5 ml PO Q4H PRN (Reason: Cough) Qty: 237 1RF gabapentin 100 mg capsule 200 mg PO BID Qty: 120 1RF sodium bicarbonate 650 mg tablet 650 mg PO BID 30 Days Qty: 60 0RF cefdinir 300 mg capsule 300 mg PO BID 7 Days Qty: 14 0RF Trulicity 1.5 mg/0.5 mL pen injector 1.5 mg subcut WE@0900 Lantus Solostar U-100 Insulin 100 unit/mL (3 mL) insulin pen 25 unit subcut DAILY insulin lispro [Humalog KwikPen Insulin] 100 unit/mL insulin pen 15 unit subcut TIDAC Referrals: [facility] [Primary Care Provider] - 11/07/23
[2023-11-05 02:39] LABS: Glucose, Whole Blood 222 mg/dL (60-115)
--- NOTE | 2023-11-05 02:50 | PC.NURSE ---
per md ambulation trial attempted on pt. pt unable and refusing to bare weight. this rn mad dr chan aware. awaiting additional orders at this time
[2023-11-05 04:54] VITALS: BP 142/63; PULSE 81; RESP 18; TEMP 37.2; O2SAT 93
--- NOTE | 2023-11-05 04:56 | PC.NURSE ---
pt carlotta and cooperative. pt drowsy at discharge. pt son at bedside. pt utilized wheelchair at discharge. pt provided with discharge packet. pt verbalized understanding of discharge plan
== END 2023-11-05 05:02 | disposition home or self-care (01) ==
PROVIDERS: Emergency Provider Emergency Medicine Emergency Medical Services
DX: S09.90XA Unspecified injury of head, initial encounter (principal); W07.XXXA Fall from chair, initial encounter; M25.552 Pain in left hip; E11.9 Type 2 diabetes mellitus without complications; G89.4 Chronic pain syndrome; E78.5 Hyperlipidemia, unspecified; I11.0 Hypertensive heart disease with heart failure; I50.30 Unspecified diastolic (congestive) heart failure; Y93.89 Activity, other specified; Y92.039 Unspecified place in apartment as the place of occurrence of the external cause; Y99.9 Unspecified external cause status; Z79.02 Long term (current) use of antithrombotics/antiplatelets; Z79.899 Other long term (current) drug therapy; Z79.4 Long term (current) use of insulin
CPT/HCPCS: 70450; 73502; 74176; 82947; 99284

== ENCOUNTER 2023-11-10 15:22 | Inpatient (IN) | payer OTHER, SELFPAY ==
[2023-11-10] VITALS (10 sets, daily range): BP systolic 135–159; BP diastolic 57–79; PULSE 88–91; RESP 18–24; TEMP 36.6–36.8; O2SAT 88–96; BMI 26.9; BMI 28.8
--- NOTE | ~2023-11-10 | XR_ITS ---
EXAMINATION: XR CHEST CLINICAL INFORMATION: SOB. COMPARISON: None available. TECHNIQUE: Frontal view of the chest was obtained. FINDINGS: There is moderate cardiomegaly with increased pulmonary vascularity suggestive of mild CHF. There is mild deformity right posterior fifth and sixth ribs. No additional bony thorax abnormality seen. The soft tissues are normal. XR/XR chest 1V IMPRESSION: 1. Moderate cardiomegaly with mild CHF. 2. Deformity right posterior fifth and sixth ribs likely old fractures.
--- NOTE | ~2023-11-10 | NM_ITS ---
EXAMINATION: NM LUNG IMAGE PERFUSION CLINICAL INFORMATION: Dyspnea, CHF and hypoxia. COMPARISON: VQ scan 02/01/2023. Chest x-ray 11/10/2023 TECHNIQUE: Following intravenous administration of 3 mCi of 90 9M technetium MAA, imaging of both lungs were obtained multiple injections. No ventilation study was performed. FINDINGS: There is normal homogeneous perfusion seen to all segments of both lungs without any focal segmental or subsegmental defect. Ventilation study was not performed. Chest x-ray 11/10/2021 reveals CHF. NM/NM pul perfusion IMPRESSION: Normal radionuclide lung perfusion scan.
--- NOTE | 2023-11-10 17:06 | ED_ITS ---
HPI - Fall General Chief Complaint: Dyspnea Stated Complaint: fell yesterday and today/hip pain Time Seen by Provider: 11/10/23 17:16 Source: patient, family, RN notes reviewed and old records reviewed Mode of arrival: ambulatory Limitations: no limitations History of Present Illness HPI Narrative: 58-year-old male with past medical history significant for chronic kidney disease not on dialysis, congestive heart failure, diabetes, osteoarthritis, hyperlipidemia presents for evaluation of syncope. Patient slightly has syncopized 3 times in the last week leading to falls. He was seen here 11/05/2023 due to a syncopal episode Patient reports back pain which he thinks is related to his falls. He denies any his head or losing consciousness Reports increase in leg swelling Patient reports increased cough and shortness of breath as well Denies any chest pain. Related Data Home Medications Medication Instructions Recorded Confirmed dulaglutide 1.5 mg/0.5 mL 1.5 mg subcut WE@0900 09/25/20 10/14/23 subcutaneous pen injector (Trulicity) insulin glargine 100 unit/mL (3 25 unit subcut DAILY 12/22/20 10/14/23 mL) subcutaneous pen (Lantus Solostar U-100 Insulin) insulin lispro 100 unit/mL 15 unit subcut TIDAC 12/22/20 10/14/23 subcutaneous pen (Humalog KwikPen (U-100) Insulin) diphenhydramine HCl 25 mg capsule 25 mg PO BEDTIME 04/18/23 10/14/23 (Benadryl) ferrous sulfate 325 mg (65 mg 325 mg PO DAILY 04/18/23 10/14/23 iron) tablet ramelteon 8 mg tablet 8 mg PO BEDTIME PRN Insomnia 04/18/23 10/14/23 tamsulosin 0.4 mg capsule 0.4 mg PO DAILY 04/18/23 10/14/23 ziprasidone HCl 60 mg capsule 60 mg PO BID 04/18/23 10/14/23 (Geodon) atorvastatin 80 mg tablet 80 mg PO DAILY 05/23/23 10/14/23 benztropine 0.5 mg tablet 0.5 mg DAILY 10/14/23 10/14/23 carvedilol 3.125 mg tablet 6.25 mg PO BID 10/14/23 10/14/23 lisinopril 40 mg tablet 40 mg PO DAILY 10/14/23 10/14/23 trazodone 50 mg tablet 50 - 100 mg PO BEDTIME PRN Insomnia 10/14/23 10/14/23 Previous Rx's Medication Instructions Recorded bumetanide 2 mg tablet 2 mg PO BID #60 tabs 04/27/23 melatonin 5 mg tablet 5 mg PO BEDTIME PRN sleep #30 tabs 04/27/23 amlodipine 10 mg tablet 10 mg PO DAILY #30 tabs 10/21/23 dextromethorphan-guaifenesin 10 5 ml PO Q4H PRN Cough #237 mL 10/21/23 mg-100 mg/5 mL oral syrup gabapentin 100 mg capsule 200 mg (2 x 100 mg) PO BID #120 10/21/23 caps hydralazine 50 mg tablet 100 mg PO TID #180 tabs 10/21/23 prednisone 10 mg tablet See Taper PO DIRECTED #20 tabs 10/21/23 spironolactone 25 mg tablet 25 mg PO DAILY #30 tabs 10/21/23 cefdinir 300 mg capsule 300 mg PO BID 7 days #14 caps 10/28/23 sodium bicarbonate 650 mg tablet 650 mg PO BID 30 days #60 tabs 10/28/23 Allergies Allergy/AdvReac Type Severity Reaction Status Date / Time No Known Allergies Allergy Verified 11/10/23 17:06 [No Known Allergies*] Review of Systems 2 Constitutional: Constitutional: Denies chills, Denies fever(s) and Denies frequent falls Eyes: Eyes: Denies blurry vision Cardiovascular: Cardiovascular: Denies chest pain and Reports dyspnea Respiratory: Respiratory: Reports cough and Reports dyspnea Gastrointestinal: Gastrointestinal: Denies abdominal pain Musculoskeletal: Musculoskeletal: Reports back pain Integumentary/Breasts: Skin/Breast: Denies rash Neurologic: Denies frequent falls PMFSH Past Medical History Medical History Congestive heart failure Nephrotic syndrome Diastolic heart failure Anemia Pneumonia Diabetic nephropathy Anemia Anemia Chronic pain syndrome Diabetic polyneuropathy Vitamin D deficiency Depression HTN (hypertension) HLD (hyperlipidemia) T2DM (type 2 diabetes mellitus) Surgical History Status post biopsy of kidney Hx of colonoscopy Hx of rotator cuff surgery Family History Family History Father Colon cancer Mother History of kidney problems T2DM (type 2 diabetes mellitus) Sister T2DM (type 2 diabetes mellitus) Social History Social History Household Members: None Housing: Apartment Do you presently have visiting nurse or other home services: Yes (acute dialysis registered nurse) Alcohol intake: former Comment: allowed to walk in room Patient Tobacco Use Status: Never used Tobacco Smoked in Last 30 Days: No Use of substances other than those prescribed or required for medical reasons: No Substance Use Type: Crack/Cocaine Advance Directives: Yes Advance Directives on File: Yes Advance Directives Date on File: 04/28/23 service: No Current occupational status: disabled Current occupation: right handed Physical Exam 2 Vital Signs: Vital Signs: Last Vital Signs Temp 97.9 F 11/10/23 18:20 Pulse 90 11/10/23 18:51 Resp 22 H 11/10/23 18:51 BP 135/57 L 11/10/23 18:51 Pulse Ox 94 11/10/23 18:51 O2 Del Method Nasal Cannula 11/10/23 18:51 O2 Flow Rate 3 11/10/23 18:51 BMI result Body Mass Index 26.9 Const: General: healthy appearing, comfortable, no acute distress, alert and awake Nutritional Appearance: well nourished Orientation/consciousness: p atient oriented x3 HEENT: Head: Yes normocephalic and Yes atraumatic Eyes: Eyelids: Yes eyelids normal Conjunctivae: conjunctivae normal S clerae: sclerae normal Corneas: corneas normal Pupils: Equal, round and reactive pupils present EOM: EOMs intact bilaterally Neck: Neck: Yes full ROM Resp: Other: Bibasilar crackles, diminished breath sounds throughout Effort & Inspection: normal respiratory effort, able to speak in complete sentences and not labored Cardio: Other: 2+ bilateral pitting edema Rate: regular rate Rhythm: regular rhythm GI: Inspection: No distended Palpation (GI): Soft to palpation, not firm, nontender, no guarding and not rigid Skin: Other: Patient has healing singh to both forearms. A General skin exam: elasticity normal Neuro: General: patient oriented x3 Cranial nerves: Yes Equal, round and reactive pupils present and Yes Bilaterally intact EOM present Cognition (Neuro): normal cognition Course Course Course Narrative: RME: 58yo M w/PMHxCHF, SIRS, HLD, PAD, OA, c/o fall Tuesday (was seen in ED afterwards) w/ additional fall last night and again around 12 noon today. Admits falling due to legs giving out & feeling dizzy w/+LOC & SOB recently. Also reports continued L hip pain. At baseline ambulates without assistive devices. Lives home alone. Denies head injury today 88% on RA in triage EKG, Labs, XR, UA, orthostatics ordered Full HPI, ROS and PE to be performed by primary ED provider. Reevaluation(s) Reevaluation #1: You should not be positive for RSV in addition to x-ray showing mild CHF. Due to hypoxia patient will require admission Time: 18:58 Reevaluation #2: Given that the patient has CHF as well as RSV to explain the hypoxia I feel that is less likely to be related to PE as well. Time: 19:04 Medications Administered Discontinued Medications Generic Name Dose Route Start Last Admin Trade Name Sofie PRN Reason Stop Dose Admin Bumetanide 2 mg 11/10/23 18:12 11/10/23 18:44 Bumetanide 1 Mg/4 Ml Vial IVPUSH 11/10/23 18:13 2 mg ONCE ONE Administration Protocol Albuterol Sulfate 2.5 mg/ 0 mg 11/10/23 17:37 11/10/23 17:41 Albuterol/Ipratropium 3 ml INHALE 11/10/23 17:38 5 dose ONCE ONE Administration Medical Decision Making Medical Decision Making [facility] Narrative: 58-year-old male presents for evaluation of shortness of breath and syncope. On arrival he was found to be hypoxic to 88%. He has history of heart failure I has crackles at base, will get a chest x-ray to evaluate. This is likely because the patient's hypoxia. However due to the syncope I had wanted to rule out PE. Unfortunately due to his renal function is not possible at this time. I will attempt to order nuclear medicine perfusion scan however i.e. do not believe that they are here at this time a day. Plan for D-dimer, if elevated, can consider heparinization until the patient is ruled out for PE Differential Diagnosis Differential Diagnoses: The differential diagnosis associated with the presentation includes Hypoxia Syncope Back pain Asthma CHF Pneumonia Admission/Observation Consideration of admission/observation: Escalation of care including admission/observation considered Lab Data MDM Lab Attestation statement: I reviewed the patient's lab results. No leukocytosis. The patient has anemia of chronic disease. This is a normocytic anemia. Chemistries are significant for a chronically low sodium of 133, chronic kidney disease with a BUN of 73 and creatinine of 4.12 which is consistent with the recent baseline. Patient's CO2 is noted be low at 17 over this is his recent baseline. Given his hyperglycemia will get a VBG to rule out DKA. BNP is elevated at 965. 11/10/23 17:44 11/10/23 17:44 Labs: Lab Results 11/10/23 11/10/23 Range/Units 17:44 17:58 WBC 8.0 (4.8-10.8) X10*3/uL RBC 2.83 L (4.60-5.80) X10*6/uL Hgb 7.7 L (14.0-18.0) g/dl Hct 23.5 L (42.0-52.0) % MCV 83.0 (80.0-98.0) fL MCH 27.2 (27.0-33.0) pg MCHC 32.8 (31.0-36.0) g/dl RDW 17.3 H (11.0-16.0) % Plt Count 172 D (160-400) X10*3/uL MPV 9.7 (9.4-12.4) fL Immature Gran % (Auto) 0.5 H (0.0-0.4) % Neut % (Auto) 66.3 (45-73) % Lymph % (Auto) 16.3 L (20-40) % [place] % (Auto) 13.5 H (2-11) % Eos % (Auto) 3.0 (0-4) % Baso % (Auto) 0.4 (0-2) % Lymph # (Auto) 1.3 (1.2-4.9) X10*3/uL [place] # (Auto) 1.1 (0.1-1.2) X10*3/uL Eos # (Auto) 0.2 (0.0-0.4) X10*3/uL Baso # (Auto) 0.0 (0.0-0.2) X10*3/uL Abs Immat Gran (auto) 0.04 H (0.00-0.03) X10*3/uL Absolute Neuts (auto) 5.3 (2.0-8.3) x10*3/uL Absolute Nucleated RBC 0.000 (0.0-0.012) X10*3/uL Nucleated RBC % (auto) 0.0 (0.0-0.2) /100WBC PT 13.4 H (11.1-13.3) SEC INR 1.1 (0.9-1.1) D-Dimer High Sensitivty 361 NG/ML Sodium 133 L (135-145) mmol/L Potassium 4.5 (3.3-5.1) mmol/L Chloride 105 (96-108) mmol/L Carbon Dioxide 17 L (22-29) mmol/L Anion Gap 16 (12-20) BUN 73 H (9-16) mg/dL Creatinine 4.12 H* (0.5-1.4) mg/dL Estim Creat Clear Calc 17.4 Estimated GFR 15 Random Glucose 160 H (60-115) mg/dL Calcium 8.1 L (8.4-10.2) mg/dL Magnesium 1.8 (1.6-2.6) mg/dL Total Bilirubin 0.3 (0.0-1.0) mg/dL Direct Bilirubin 0.1 (0.0-0.5) mg/dL AST 21 (5-37) U/L ALT 12 (0-40) U/L Alkaline Phosphatase 81 (39-117) U/L Troponin I High Sens 15.8 D (<3.5-35.0) ng/L B-Natriuretic Peptide 965 H (<100) pg/mL Total Protein 7.0 (6.5-8.0) g/dL Albumin 2.9 L (3.5-5.0) g/dL Influenza Type A (PCR) NEGATIVE (Negative) Influenza Type B (PCR) NEGATIVE (Negative) RSV RNA Qual (PCR) POSITIVE A (Negative) SARS-CoV-2 RNA (RT-PCR) NEGATIVE (Negative) Independent Interpretation I performed an independent interpretation of an: EKG (Normal sinus rhythm with a rate of 88 beats per minute. No ST segment elevation or depressions.) and Plain X-Ray (Number vascular congestion, mild blunting of the costophrenic angle) Radiology Impression Discussion of test interpretation with radiology: I have reviewed the radiologist's reading. (Mild CHF with cardiomegaly) Discharge Plan Discharge Clinical Impression: RSV infection, CHF (congestive heart failure), Hypoxia, Chronic kidney disease Patient Disposition: Admitted As Inpatient
--- NOTE | 2023-11-10 17:11 | ECG_ITS ---
Test Reason : SOB Blood Pressure : / mmHG Vent. Rate : 088 BPM Atrial Rate : 088 BPM P-R Int : 140 ms QRS Dur : 078 ms QT Int : 366 ms P-R-T Axes : 045 010 039 degrees QTc Int : 442 ms Normal sinus rhythm Possible Left atrial enlargement Borderline ECG When compared with ECG of 14-OCT-2023 11:07, Nonspecific T wave abnormality no longer evident in Lateral leads Referred By: Angelita Edwards Electronically Signed By:ROOSEVELT HENDRICKS MD
[2023-11-10] MEDS: Albuterol Sulfate 2.5 MG, Albuterol/Iprat 2.5/0.5MG 3 ML 3 ML INHALE ×2 (17:41→20:56)
[2023-11-10 17:49] LABS: MANUAL DIFF FLAG NO
[2023-11-10 17:59] LABS: INTERNATIONAL NORM RATIO 1.1 (0.9-1.1); Prothrombin Time 13.4 SEC (11.1-13.3)
[2023-11-10 18:03] LABS: Basophils Percent Auto 0.4 % (0-2); Eosinophils Absolute Auto 0.2 X10*3/uL (0.0-0.4); Hematocrit 23.5 % (42.0-52.0); Hemoglobin 7.7 g/dl (14.0-18.0); Imm Gran Abs Auto 0.04 X10*3/uL (0.00-0.03); Imm Gran Pct Auto 0.5 % (0.0-0.4); Lymphocytes Absolute Auto 1.3 X10*3/uL (1.2-4.9); Lymphocytes Percent Auto 16.3 % (20-40); Mean Corpuscular HGB Conc 32.8 g/dl (31.0-36.0); Mean Corpuscular Hemoglobin 27.2 pg (27.0-33.0); Mean Platelet Volume 9.7 fL (9.4-12.4); Monocytes Absolute Auto 1.1 X10*3/uL (0.1-1.2); Monocytes Percent Auto 13.5 % (2-11); Neutrophils Absolute Auto 5.3 x10*3/uL (2.0-8.3); Neutrophils Percent Auto 66.3 % (45-73); Platelet Count 172 X10*3/uL (160-400); Red Blood Count 2.83 X10*6/uL (4.60-5.80); Red Cell Distribution Width 17.3 % (11.0-16.0)
[2023-11-10 18:13] LABS: B Type Natriuretic Peptide 965 pg/mL (<100)
[2023-11-10 18:14] LABS: Troponin-I High Sensitivity 15.8 ng/L (<3.5-35.0)
[2023-11-10 18:17] LABS: Alanine Aminotransferase 12 U/L (0-40); Albumin Level 2.9 g/dL (3.5-5.0); Alkaline Phosphatase 81 U/L (39-117); Anion Gap 16 (12-20); Aspartate Amino Transferase 21 U/L (5-37); Bilirubin Direct 0.1 mg/dL (0.0-0.5); Bilirubin Total 0.3 mg/dL (0.0-1.0); Blood Urea Nitrogen 73 mg/dL (9-16); Calcium 8.1 mg/dL (8.4-10.2); Carbon Dioxide 17 mmol/L (22-29); Chloride 105 mmol/L (96-108); Creatinine Clr Calc Pharmacy 17.4; Estimated Glomerular Filt Rate 15; Glucose Random 160 mg/dL (60-115); Magnesium 1.8 mg/dL (1.6-2.6); Potassium 4.5 mmol/L (3.3-5.1); Sodium 133 mmol/L (135-145)
[2023-11-10 18:23] LABS: D Dimer High Sensitivity 361 NG/ML
[2023-11-10] MEDS: Bumetanide 1 MG/4 ML VIAL 2 MG IVPUSH ×2 (18:44→21:51)
[2023-11-10 18:52] LABS: Influenza A PCR NEGATIVE (Negative); Influenza B PCR NEGATIVE (Negative); Resp Syncy Virus RNA Qual PCR POSITIVE (Negative); SARS COV2 PCR INHOUSE NEGATIVE (Negative)
--- NOTE | 2023-11-10 19:12 | PC.NURSE ---
this RN resumed care of pt at this time. transport currently transporting pt to [facility] at this time. pt remains on 3L via NC.
--- NOTE | 2023-11-10 20:14 | P.HPHOSP_ITS ---
History of Present Illness Date of Service: 11/10/23 Chief Complaint: Syncope / Dyspnea This is a 58-year-old male with pertinent history of congestive heart failure with preserved ejection fraction, insulin-dependent type 2 diabetes mellitus with diabetic neuropathy, chronic kidney disease, chronic normocytic anemia, essential hypertension, hyperlipidemia, mood disorder who presents to the emergency department for evaluation of presyncope and falls. Patient states he fell 2 times in the last 1 week including on the day of presentation. He had a sensation that he would lose consciousness and fell. Did not pass out. Also reports progressively increasing shortness of breath, worse with ambulation. Admits orthopnea and leg swelling. States he is compliant with his home p.o. medications including diuretics. Patient is also complaining of nonproductive cough and wheezing. No fever, chills, chest discomfort, palpitations, abdominal pain, changes in urinary or bowel habits. In the emergency department, patient tested positive for RSV and BNP found to be elevated. Imaging with pulmonary edema. Requiring supplemental oxygen in the ER Review of Systems 2 Constitutional: Constitutional: Reports fatigue and Reports weakness ENT: Reports dizziness Cardiovascular: Cardiovascular: Reports dyspnea on exertion and Reports orthopnea Respiratory: Respiratory: Reports cough, Reports dyspnea on exertion and Reports wheezing Gastrointestinal: Gastrointestinal: Reports no additional gastrointestinal complaints Genitourinary: Genitourinary: Reports no additional male genitourinary complaints Neurologic: Reports dizziness and Reports weakness Endocrine: Endocrine: Reports fatigue Allergic/Immunologic: Allergic/Immunologic: Reports wheezing [facility] Medical History Congestive heart failure Nephrotic syndrome Diastolic heart failure Anemia Pneumonia Diabetic nephropathy Anemia Anemia Chronic pain syndrome Diabetic polyneuropathy Vitamin D deficiency Depression HTN (hypertension) HLD (hyperlipidemia) T2DM (type 2 diabetes mellitus) Family History Father Colon cancer Mother History of kidney problems T2DM (type 2 diabetes mellitus) Sister T2DM (type 2 diabetes mellitus) Surgical History Status post biopsy of kidney Hx of colonoscopy Hx of rotator cuff surgery Social History Household Members: None Housing: Apartment Do you presently have visiting nurse or other home services: Yes (pot filler) Alcohol intake: former Comment: allowed to walk in room Patient Tobacco Use Status: Never used Tobacco Smoked in Last 30 Days: No Use of substances other than those prescribed or required for medical reasons: No Substance Use Type: Crack/Cocaine Advance Directives: Yes Advance Directives on File: Yes Advance Directives Date on File: 04/28/23 Nutrition Risks: No Nutritional Risk service: No Current occupational status: disabled Current occupation: right handed Meds Allergies Allergy/AdvReac Type Severity Reaction Status Date / Time No Known Allergies Allergy Verified 11/10/23 17:06 [No Known Allergies*] Active Medications: Current Medications Acetaminophen (Acetaminophen 325 Mg Tablet) 650 mg PO Q6H PRN PRN Reason: Pain, Mild (Pain Scale 1-3) Enoxaparin Sodium (Enoxaparin Sodium 30 Mg/0.3 Ml Syringe) 30 mg SUBCUT Q24H BRENNEN Melatonin (Melatonin 3 Mg Tablet) 6 mg PO BEDTIME PRN PRN Reason: Insomnia Ondansetron HCl (Ondansetron Hcl 4 Mg/2 Ml Vial) 4 mg IVPUSH Q8H PRN PRN Reason: Nausea and Vomiting Sodium Chloride (0.9 % Sodium Chloride Flush 3 Ml Syringe) 3 ml IVFLUSH QSHIFT [facility] Home Medications Medication Instructions Recorded Confirmed Last Taken Type dulaglutide 1.5 mg/0.5 mL 1.5 mg subcut WE@0900 09/25/20 10/14/23 10/12/23 History subcutaneous pen injector (Trulicity) insulin glargine 100 unit/mL (3 25 unit subcut DAILY 12/22/20 10/14/23 01/30/23 History mL) subcutaneous pen (Lantus Solostar U-100 Insulin) insulin lispro 100 unit/mL 15 unit subcut TIDAC 12/22/20 10/14/23 04/18/23 History subcutaneous pen (Humalog KwikPen (U-100) Insulin) diphenhydramine HCl 25 mg capsule 25 mg PO BEDTIME 04/18/23 10/14/23 Unknown History (Benadryl) ferrous sulfate 325 mg (65 mg 325 mg PO DAILY 04/18/23 10/14/23 Unknown History iron) tablet ramelteon 8 mg tablet 8 mg PO BEDTIME PRN Insomnia 04/18/23 10/14/23 04/17/23 History tamsulosin 0.4 mg capsule 0.4 mg PO DAILY 04/18/23 10/14/23 Unknown History ziprasidone HCl 60 mg capsule 60 mg PO BID 04/18/23 10/14/23 Unknown History (Samuel) atorvastatin 80 mg tablet 80 mg PO DAILY 05/23/23 10/14/23 Unknown History benztropine 0.5 mg tablet 0.5 mg DAILY 10/14/23 10/14/23 Unknown History carvedilol 3.125 mg tablet 6.25 mg PO BID 10/14/23 10/14/23 Unknown History lisinopril 40 mg tablet 40 mg PO DAILY 10/14/23 10/14/23 Unknown History trazodone 50 mg tablet 50 - 100 mg PO BEDTIME PRN Insomnia 10/14/23 10/14/23 Unknown History Physical Exam 2 Vital Signs and Narrative: Vital Signs: Last Vital Signs Temp 97.9 F 11/10/23 18:20 Pulse 90 11/10/23 20:01 Resp 21 H 11/10/23 19:59 BP 153/72 H 11/10/23 20:01 Pulse Ox 94 11/10/23 19:59 O2 Del Method Nasal Cannula 11/10/23 19:59 O2 Flow Rate 3 11/10/23 19:59 BMI result Body Mass Index 26.9 Middle-aged male lying in bed in mild distress on supplemental oxygen Neck supple Regular rate and rhythm, S1-S2 heard Bilateral inspiratory crackles and expiratory wheezing Abdomen soft nontender, no guarding, no rigidity Patient is awake, alert and oriented to self, place, time and person ; no focal motor deficit Psych: Normal mood Bilateral pedal edema Results Labs 11/10/23 17:44 11/10/23 17:44 Labs: Laboratory Results - last 24 hr 11/10/23 11/10/23 17:44 17:58 MCV 83.0 MCH 27.2 MCHC 32.8 RDW 17.3 H Plt Count 172 D MPV 9.7 Immature Gran % (Auto) 0.5 H Neut % (Auto) 66.3 Lymph % (Auto) 16.3 L [place] % (Auto) 13.5 H Eos % (Auto) 3.0 Baso % (Auto) 0.4 Lymph # (Auto) 1.3 [place] # (Auto) 1.1 Eos # (Auto) 0.2 Baso # (Auto) 0.0 Abs Immat Gran (auto) 0.04 H Absolute Neuts (auto) 5.3 Absolute Nucleated RBC 0.000 Nucleated RBC % (auto) 0.0 PT 13.4 H INR 1.1 D-Dimer High Sensitivty 361 Anion Gap 16 Estim Creat Clear Calc 17.4 Estimated GFR 15 Random Glucose 160 H Calcium 8.1 L Magnesium 1.8 Total Bilirubin 0.3 Direct Bilirubin 0.1 AST 21 ALT 12 Alkaline Phosphatase 81 B-Natriuretic Peptide 965 H Total Protein 7.0 Albumin 2.9 L Influenza Type A (PCR) NEGATIVE Influenza Type B (PCR) NEGATIVE RSV RNA Qual (PCR) POSITIVE A SARS-CoV-2 RNA (RT-PCR) NEGATIVE Imaging Radiologist's Impressions: Impressions Chest X-Ray 11/10/23 17:59 IMPRESSION: 1. Moderate cardiomegaly with mild CHF. 2. Deformity right posterior fifth and sixth ribs likely old fractures. Pulmonary Perfusion Imaging 11/10/23 19:45 IMPRESSION: Normal radionuclide lung perfusion scan. Assessment and Plan (1) CHF (congestive heart failure): Status: Acute (2) Hypoxia: Status: Acute (3) RSV infection: Status: Acute Plan This is a 58-year-old male with pertinent history of congestive heart failure with preserved ejection fraction, insulin-dependent type 2 diabetes mellitus with diabetic neuropathy, chronic kidney disease, chronic normocytic anemia, essential hypertension, hyperlipidemia, mood disorder who presents to the emergency department for evaluation of presyncope and falls #. Acute hypoxemic respiratory failure secondary to acute on chronic congestive heart failure with preserved ejection fraction in the setting of RSV infection: Will admit patient with supplemental oxygen. Initiating IV diuresis. Strict I's and O's. Low-salt diet. Obtaining transthoracic echocardiogram. #. RSV bronchitis: Scheduled and p.r.n. DuoNebs. Initiating systemic steroids #. Presyncope in the setting of above: Also obtaining orthostatics and will monitor patient on telemetry #. Insulin-dependent diabetes mellitus with neuropathy: Initiating Accu-Cheks with sliding scale insulin. On gabapentin. REDUCE HOME BASAL INSULIN #. ?KWAME on Chronic kidney disease vs progression of CKD: Monitor creatinine and kidney function with IV diuresis. Avoid nephrotoxins. UA pneding. Consulting nephrology #. Essential hypertension: On beta-abhijeet, spironolactone, amlodipine and hydralazine #. Mixed hyperlipidemia: On high-intensity statin #. Mood disorder: Continue home mood stabilizers #. Anemia of chronic disease: Hemoglobin above transfusion threshold #. Cocaine use disorder: UDS pending. Med rec pending DVT prophylaxis: Lovenox Full code Admit as inpatient and will require two night minimum hospital stay for supplemental oxygen, IV diuresis, IV steroids, monitoring of kidney function (as above), which is not possible in a lesser acute setting. Specialist consult pending Quality Stroke Does the patient have a stroke diagnosis?: No VTE Prior VTE?: No VTE Risk Level:: Medical - moderate - high VTE Device Contraindication: Treatment Not Indicated VTE Drug Contraindication: N/A - Med Ordered
[2023-11-10] MEDS: Acetaminophen 325 MG TABLET 650 MG PO (20:27)
[2023-11-10] MEDS: Enoxaparin Sodium 30 MG/0.3 ML SYRINGE SUBCUT (20:28)
[2023-11-10 20:36] LABS: Glucose, Whole Blood 160 mg/dL (60-115)
[2023-11-10] MEDS: Insulin Lispro 100 UNIT/ML 3 ML VIAL SUBCUT (20:36)
--- NOTE | 2023-11-10 20:38 | PC.NURSE ---
pt returned from [email or web address]. medications administered per provider order. insulin administered per sliding scale. pt displays w/ sob/wob/wheezing at this time. resting at 93% on 3L via NC. RT called to see if pt is able to receive breathing treatment at this time. nsr on monitoring coordinator. family bedside. call grayson placed within reach.
[2023-11-10 20:45] LABS: Venous Blood Gas Refer to POC result
[2023-11-10 20:45] LABS: VBG Base Excess -2.3 mmol/L; VBG HCO3 20 mmol/L (22-26); VBG pCO2 26 mmHg; VBG pH 7.48 (7.32-7.43); VBG pO2 84 mmHg
--- NOTE | 2023-11-10 20:54 | PC.NURSE ---
RT bedside at this time.
--- NOTE | 2023-11-10 21:07 | PC.NURSE ---
pt receiving breathing treatment at this time.
--- NOTE | 2023-11-10 21:45 | PC.NURSE ---
admission worksheet completed. transport notified at this time.
[2023-11-10] MEDS: methylPREDNISolone Sod Succ 40 MG/ML VIAL IVPUSH (21:51)
[2023-11-10] MEDS: Ziprasidone 60 MG CAPSULE PO (21:51)
--- NOTE | 2023-11-10 21:57 | PC.NURSE ---
medication administered per provider order. pt now being transported upstairs at this time.
--- NOTE | 2023-11-10 22:10 | PHA.MEDREC ---
Addendum entered by Yao Carballo 11/11/23 09:11: Patient takes carvedilol 6.25 mg BID. Original Note: Pharmacy Consult ? Medication Reconciliation Pharmacy has completed the medication reconciliation. Spoke to patient, he was able to confirm most medications except for carvedilol and hydralazine (most recent fill is 150mg twice). He said that he takes gabapentin 100mg twice a day.
[2023-11-10] MEDS: Insulin Glargine,Hum.rec.anlog 100 UNIT/ML 10 ML VIAL 20 UNIT SUBCUT (22:19)
[2023-11-10] MEDS: 0.9 % Sodium Chloride Flush 3 ML SYRINGE IVFLUSH (22:20)
[2023-11-10] MEDS: traMADoL HCL 50 MG TABLET PO (23:05)
[2023-11-10 23:21] LABS: Appearance Urine Clear; Color Urine Yellow; Glucose Urine UA 100 mg/dL (Negative); Leukocyte Esterase Urine Trace (Negative); Nitrite Urine Negative (Negative); PH 5.5 (5.0-9.0); UMIC TRIGGER UACC YES; Urine Blood Trace (Negative); Urine Ketones Negative (Negative); Urine Protein 300 (3+) mg/dL (Neg-Trace)
[2023-11-10 23:40] LABS: Appearance Urine Clear; Color Urine Yellow; Glucose Urine UA 100 mg/dL (Negative); Leukocyte Esterase Urine Trace (Negative); Nitrite Urine Negative (Negative); UMIC TRIGGER UACC YES; Urine Blood Negative (Negative); Urine Ketones Negative (Negative); Urine Protein 300 (3+) mg/dL (Neg-Trace)
[2023-11-10 23:42] LABS: Bacteria Urine None Seen (None Seen); Hyaline Casts Urine 0-2 /LPF (0-2); Squamous Epithelial Cell Urine 0-2 /HPF (0-2); UACC Culture Trigger YES
[2023-11-10 23:59] LABS: Amphetamine Screen Urine Not Detected (Not Detect); Barbiturates, Urine Not Detected (Not Detect); Benzodiazepines Screen Urine Not Detected (Not Detect); Cannabinoid Screen Urine Not Detected (Not Detect); Cocaine Screen Urine POSITIVE (Not Detect); Fentanyl, urine Not Detected (Not Detect); Opiate Screen Urine Not Detected (Not Detect); Phencyclidine Screen Urine Not Detected (Not Detect)
[2023-11-11] VITALS (13 sets, daily range): BP systolic 127–160; BP diastolic 63–77; PULSE 80–88; RESP 16–20; TEMP 36–36.7; O2SAT 94–99
[2023-11-11] MEDS: Albuterol/Iprat 2.5/0.5MG 3 ML AMPUL.NEB INHALE ×5 (00:09→19:09)
--- NOTE | 2023-11-11 02:53 | PC.NURSE ---
Pt c/o low back pain and stiffness, claimed prn tylenol had no effect , Dr. Mac was made aware, Tramadol po given, pt slept after, pt awaken with care.
--- NOTE | 2023-11-11 07:00 | CA_ITS ---
Transthoracic Echocardiogram Patient (Last, First, Middle): Yao Rivera, Gender: Male Date of : 1965 Age: 58 Procedure Date: 11/11/2023 Procedure Type: Transthoracic Echocardiogram Location: S3E Height: 160.02 cm Weight: 73.48 kg BSA: 1.77 m2 Heart Rate: 83 bpm BP: 155 / 73 mmHg Location Man: Referring MD: Destini Mac MD Certified Orthotist: Aston Jason MD Symptoms: CHF Study Quality: Good ECG Rhythm: Sinus Conclusions: - 1. Normal LV ejection fraction 65-70% with impaired relaxation filling pattern 2. Moderately dilated left atrium 3. Normal cardiac valvular Doppler 4. Upper limits of normal RV systolic pressure 5. Small pericardial effusion more localized near the left ventricle Findings Left Ventricle Normal left ventricular size, thickness, and systolic function. The visually estimated ejection fraction is between 65-70%. Spectral Doppler is indicative of an impaired relaxation filling pattern. E/E prime ratio is between 8 and 15 consistent with indeterminate filling pressures. Right Ventricle Mildly increased right ventricular cavity size. There is normal right ventricular systolic function. Atria The left atrium is moderately dilated. Interatrial shunt cannot be excluded. The right atrium is likely dilated. Aortic Valve Normal aortic valve structure and function. There is no aortic valve stenosis. There is no aortic valve regurgitation. Mitral Valve There is mild anterior and posterior mitral leaflet thickening. There is mild mitral annular calcification. There is trace mitral valve regurgitation. There is no mitral valve stenosis. Pulmonic Valve The pulmonic valve is likely normal. Tricuspid Valve Normal tricuspid valve structure. There is mild tricuspid valve regurgitation. Mildly elevated right atrial pressure. There is no evidence of pulmonary hypertension. Great Vessels All visible segments of the aorta are normal in size. The pulmonary artery was not well visualized. Venous The inferior vena cava is mildly dilated and collapses greater than 50% with inspiration. Pericardium/Pleural There is a small loculated pericardial effusion overlying the left ventricle. Measurements 2D Linear Measurements IVSd: 1.06 0.6-0.9/0.6-1.0 cm LVIDd: 4.78 3.9-5.3/4.2-5.9 cm LVIDd Index: 2.70 2.4-3.2/2.2-3.1 cm/m2 LVIDs: 2.75 2.0-3.6 cm LVPWd: 1.04 0.7-1.1 cm LA Diam: 5.10 2.7-3.8/3.0-4.0 cm LAIDs Index: 2.88 1.5-2.3 cm/m2 LV Mass: 225.10 67-162/88-224 g LV Mass Index: 127.18 43-95/49-115 g/m2 LVOT Diam: 2.10 3.0+(-)1.3 cm Mitral Valve MV Pk E: 1.04 MV PK A: 1.12 MV Decel Time: 202.00 E/A: 0.90 E'Lateral: 10.20 E'Medial: 6.09 E/E' Med: 17.10 E/E' Lat: 10.20 PHT: 59.00 MVA PHT: 3.73 Decel [place]: 5.14 Aortic Valve AoV Pk [place]: 1.91 AoV Mn [place]: 1.21 AoV VTI: 0.41 AoV Pk Grad: 15.00 Aov Mn Grad: 7.00 MESSI Cont.VTI: 2.38 LVOT LVOT Pk [place]: 1.19 LVOT Mn [place]: 0.77 LVOT VTI: 0.28 LVOT Pk Grad: 6.00 LVOT Mn Grad: 3.00 LVOT Diam: 2.10 LVOT Area: 3.46 Diastolic Function MV Pk E: 1.04 MV Pk A: 1.12 E/A: 0.90 E'Medial: 6.09 E/E' Med: 17.10 E' Laterial: 10.20 E/E' Lat: 10.20 Right Ventricle TAPSE (mm): 26.70 TVS' [place]: 13.60 Tricuspid Valve TR Pk [place]: 2.74 TR Pk Grad: 30.00 RA Press: 8.00 RVSP: 38.00 Great Vessels Aorta Sinus of Valsalva: 2.80 2.0-3.5 cm Ao Asc: 2.70 2.1-3.4 cm Pulmonary Valve PV Pk [place]: 1.27 Peak PV Grad: 6.00 Updated in Other Vendor System with Status of Final Aston Jason MD electronically signed on 11/12/2023 11:02:22 AM with status of Final
[2023-11-11 07:23] LABS: Glucose, Whole Blood 312 mg/dL (60-115)
[2023-11-11] MEDS: Insulin Lispro 100 UNIT/ML 3 ML VIAL SUBCUT ×4 (08:36→20:21)
[2023-11-11] MEDS: 0.9 % Sodium Chloride Flush 3 ML SYRINGE IVFLUSH ×3 (08:37→20:18)
[2023-11-11] MEDS: hydrALAZINE HCl 50 MG TABLET 150 MG PO ×2 (08:39→20:54)
[2023-11-11] MEDS: Gabapentin 100 MG CAPSULE PO (08:39)
[2023-11-11] MEDS: Benztropine Mesylate 0.5 MG TABLET PO (08:39)
[2023-11-11] MEDS: Ziprasidone 60 MG CAPSULE PO ×2 (08:39→20:19)
[2023-11-11] MEDS: Atorvastatin Calcium 80 MG TABLET PO (08:40)
[2023-11-11] MEDS: Ferrous Sulfate 324 MG TABLET.DR PO (08:40)
[2023-11-11] MEDS: Tamsulosin HCL 0.4 MG CAPSULE PO (08:40)
[2023-11-11] MEDS: Sodium Bicarbonate 650 MG TABLET PO ×2 (08:40→20:19)
[2023-11-11] MEDS: methylPREDNISolone Sod Succ 40 MG/ML VIAL IVPUSH ×2 (08:40→20:18)
[2023-11-11] MEDS: Bumetanide 1 MG/4 ML VIAL 4 MG IVPUSH ×2 (08:42→16:46)
[2023-11-11] MEDS: Acetaminophen 325 MG TABLET 650 MG PO (08:42)
--- NOTE | 2023-11-11 09:00 | P.PNIM_ITS ---
Subjective Subjective Date of Service: 11/11/23 Interval History: imprvoing sob Physical Exam 2 Vital Signs: Vital Signs: Last Vital Signs Temp 97.2 F 11/11/23 07:20 Pulse 88 11/11/23 08:13 Resp 18 11/11/23 08:13 BP 149/70 H 11/11/23 08:03 Pulse Ox 96 11/11/23 07:20 O2 Del Method Nasal Cannula 11/11/23 07:20 O2 Flow Rate 3 11/11/23 07:20 BMI result Body Mass Index 28.8 General: AO X 3, no acute distress Resp: Crackles bilateral, no accessory muscles used CVS: S1,S2,RRR, edema GI: soft, non tender, non distended Neuro: motor grossly intact, alert Psych: appropriate affect, appropriate insight Objective Data Active Medications Acetaminophen (Acetaminophen 325 Mg Tablet) 650 mg PO Q6H PRN PRN Reason: Pain, Mild (Pain Scale 1-3) Last Admin: 11/11/23 08:42 Dose: 650 mg Documented By: BRIAN Albuterol/Ipratropium (Albuterol/Iprat 2.5/0.5mg 3 Ml Ampul.Neb) 3 ml INHALE RQ4H WHILE AWAKE [facility] Last Admin: 11/11/23 08:11 Dose: 3 ml Documented By: VIBHA Albuterol/Ipratropium (Albuterol/Iprat 2.5/0.5mg 3 Ml Ampul.Neb) 3 ml INHALE Q4H PRN PRN Reason: Wheezing Last Admin: 11/11/23 00:09 Dose: 3 ml Documented By: JAYCEE Atorvastatin Calcium (Atorvastatin Calcium 80 Mg Tablet) 80 mg PO DAILY [facility] Last Admin: 11/11/23 08:40 Dose: 80 mg Documented By: BRIAN Benztropine Mesylate (Benztropine Mesylate 0.5 Mg Tablet) 0.5 mg PO DAILY [facility] Last Admin: 11/11/23 08:39 Dose: 0.5 mg Documented By: BRIAN Bumetanide (Bumetanide 1 Mg/4 Ml Vial) 4 mg IVPUSH BID@0900,1700 [facility]; Protocol Last Admin: 11/11/23 08:42 Dose: 4 mg Documented By: BRIAN Dextrose (Dextrose 50 % 25 Gm/50 Ml Syringe) 25 gm IVPUSH Q15M PRN; Protocol PRN Reason: per Hypoglycemia Standing Ord. Enoxaparin Sodium (Enoxaparin Sodium 30 Mg/0.3 Ml Syringe) 30 mg SUBCUT Q24H [facility] Last Admin: 11/10/23 20:28 Dose: 30 mg Documented By: ANDREINA Ferrous Sulfate (Ferrous Sulfate 324 Mg Tablet.Dr) 324 mg PO DAILY [facility] Last Admin: 11/11/23 08:40 Dose: 324 mg Documented By: BRIAN Gabapentin (Gabapentin 100 Mg Capsule) 100 mg PO BID [facility] Last Admin: 11/11/23 08:39 Dose: 100 mg Documented By: BRIAN Glucose (Glucose Gel 15 Gm Gel..Gram.) 15 gm PO Q15M PRN; Protocol PRN Reason: per Hypoglycemia Standing Ord. Hydralazine HCl (Hydralazine Hcl 50 Mg Tablet) 150 mg PO BID [facility]; Protocol Last Admin: 11/11/23 08:39 Dose: 150 mg Documented By: BRIAN Insulin Glargine (Insulin Glargine,Hum.Rec.Anlog 100 Unit/Ml 10 Ml Vial) 20 unit SUBCUT BEDTIME [facility] Last Admin: 11/10/23 22:19 Dose: 20 unit Documented By: CASTILNuris Insulin Human Lispro (Insulin Lispro 100 Unit/Ml 3 Ml Vial) 0 unit SUBCUT QIDACHS [facility]; Protocol Last Admin: 11/11/23 08:36 Dose: 8 unit Documented By: BRIAN Melatonin (Melatonin 3 Mg Tablet) 6 mg PO BEDTIME PRN PRN Reason: Insomnia Methylprednisolone Sodium Succinate (Methylprednisolone Sod Succ 40 Mg/Ml Vial) 40 mg IVPUSH Q12H [facility] Last Admin: 11/11/23 08:40 Dose: 40 mg Documented By: BRIAN Ondansetron HCl (Ondansetron Hcl 4 Mg/2 Ml Vial) 4 mg IVPUSH Q8H PRN PRN Reason: Nausea and Vomiting Sodium Bicarbonate (Sodium Bicarbonate 650 Mg Tablet) 650 mg PO BID [facility] Last Admin: 11/11/23 08:40 Dose: 650 mg Documented By: BRIAN Sodium Chloride (0.9 % Sodium Chloride Flush 3 Ml Syringe) [facility] Last Admin: 11/11/23 08:37 Dose: 3 ml Documented By: BRIAN Tamsulosin HCl (Tamsulosin Hcl 0.4 Mg Capsule) 0.4 mg PO DAILY [facility] Last Admin: 11/11/23 08:40 Dose: 0.4 mg Documented By: BRIAN Trazodone HCl (Trazodone Hcl 50 Mg Tablet) 50 mg PO BEDTIME PRN PRN Reason: Insomnia Ziprasidone (Ziprasidone 60 Mg Capsule) 60 mg PO BID [facility] Last Admin: 11/11/23 08:39 Dose: 60 mg Documented By: BRIAN Labs 11/10/23 17:44 11/10/23 17:44 Labs: Laboratory Results - last 24 hr 11/10/23 11/10/23 11/10/23 17:44 17:58 20:26 MCV 83.0 MCH 27.2 MCHC 32.8 RDW 17.3 H Plt Count 172 D MPV 9.7 Immature Gran % (Auto) 0.5 H Neut % (Auto) 66.3 Lymph % (Auto) 16.3 L [place] % (Auto) 13.5 H Eos % (Auto) 3.0 Baso % (Auto) 0.4 Lymph # (Auto) 1.3 [place] # (Auto) 1.1 Eos # (Auto) 0.2 Baso # (Auto) 0.0 Abs Immat Gran (auto) 0.04 H Absolute Neuts (auto) 5.3 Absolute Nucleated RBC 0.000 Nucleated RBC % (auto) 0.0 PT 13.4 H INR 1.1 D-Dimer High Sensitivty 361 VBG pH 7.48 H VBG pCO2 26 VBG pO2 84 VBG HCO3 20 L VBG O2 Saturation TNP VBG Base Excess -2.3 Anion Gap 16 Estim Creat Clear Calc 17.4 Estimated GFR 15 POC Glucose Random Glucose 160 H Calcium 8.1 L Magnesium 1.8 Total Bilirubin 0.3 Direct Bilirubin 0.1 AST 21 ALT 12 Alkaline Phosphatase 81 B-Natriuretic Peptide 965 H Total Protein 7.0 Albumin 2.9 L Urine Color Urine Appearance Urine pH Ur Specific [place] Urine Protein Urine Glucose (UA) Urine Ketones Urine Blood Urine Nitrite Ur Leukocyte Esterase Urine RBC Urine WBC Ur Squamous Epith Cells Urine Bacteria Hyaline Casts Urine Opiates Screen Urine Fentanyl Screen Ur Barbiturates Screen Ur Phencyclidine Scrn Ur Amphetamines Screen U Benzodiazepines Scrn Urine Cocaine Screen U Marijuana (THC) Screen Influenza Type A (PCR) NEGATIVE Influenza Type B (PCR) NEGATIVE RSV RNA Qual (PCR) POSITIVE A SARS-CoV-2 RNA (RT-PCR) NEGATIVE 11/10/23 11/10/23 11/10/23 20:30 23:09 23:09 MCV MCH MCHC RDW Plt Count MPV Immature Gran % (Auto) Neut % (Auto) Lymph % (Auto) [place] % (Auto) Eos % (Auto) Baso % (Auto) Lymph # (Auto) [place] # (Auto) Eos # (Auto) Baso # (Auto) Abs Immat Gran (auto) Absolute Neuts (auto) Absolute Nucleated RBC Nucleated RBC % (auto) PT INR D-Dimer High Sensitivty VBG pH VBG pCO2 VBG pO2 VBG HCO3 VBG O2 Saturation VBG Base Excess Anion Gap Estim Creat Clear Calc Estimated GFR POC Glucose 160 H Random Glucose Calcium Magnesium Total Bilirubin Direct Bilirubin AST ALT Alkaline Phosphatase B-Natriuretic Peptide Total Protein Albumin Urine Color Yellow Yellow Urine Appearance Clear Urine pH Ur Specific [place] Urine Protein Urine Glucose (UA) Urine Ketones Urine Blood Urine Nitrite Ur Leukocyte Esterase Urine RBC Urine WBC Ur Squamous Epith Cells Urine Bacteria Hyaline Casts Urine Opiates Screen Urine Fentanyl Screen Ur Barbiturates Screen Ur Phencyclidine Scrn Ur Amphetamines Screen U Benzodiazepines Scrn Urine Cocaine Screen U Marijuana (THC) Screen Influenza Type A (PCR) Influenza Type B (PCR) RSV RNA Qual (PCR) SARS-CoV-2 RNA (RT-PCR) 11/10/23 11/10/23 11/10/23 23:09 23:09 23:09 MCV MCH MCHC RDW Plt Count MPV Immature Gran % (Auto) Neut % (Auto) Lymph % (Auto) [place] % (Auto) Eos % (Auto) Baso % (Auto) Lymph # (Auto) [place] # (Auto) Eos # (Auto) Baso # (Auto) Abs Immat Gran (auto) Absolute Neuts (auto) Absolute Nucleated RBC Nucleated RBC % (auto) PT INR D-Dimer High Sensitivty VBG pH VBG pCO2 VBG pO2 VBG HCO3 VBG O2 Saturation VBG Base Excess Anion Gap Estim Creat Clear Calc Estimated GFR POC Glucose Random Glucose Calcium Magnesium Total Bilirubin Direct Bilirubin AST ALT Alkaline Phosphatase B-Natriuretic Peptide Total Protein Albumin Urine Color Urine Appearance Clear Urine pH 6.0 5.5 Ur Specific [place] 1.010 1.010 Urine Protein 300 (3+) H Urine Glucose (UA) Urine Ketones Urine Blood Urine Nitrite Ur Leukocyte Esterase Urine RBC Urine WBC Ur Squamous Epith Cells Urine Bacteria Hyaline Casts Urine Opiates Screen Urine Fentanyl Screen Ur Barbiturates Screen Ur Phencyclidine Scrn Ur Amphetamines Screen U Benzodiazepines Scrn Urine Cocaine Screen U Marijuana (THC) Screen Influenza Type A (PCR) Influenza Type B (PCR) RSV RNA Qual (PCR) SARS-CoV-2 RNA (RT-PCR) 11/10/23 11/10/23 11/10/23 23:09 23:09 23:09 MCV MCH MCHC RDW Plt Count MPV Immature Gran % (Auto) Neut % (Auto) Lymph % (Auto) [place] % (Auto) Eos % (Auto) Baso % (Auto) Lymph # (Auto) [place] # (Auto) Eos # (Auto) Baso # (Auto) Abs Immat Gran (auto) Absolute Neuts (auto) Absolute Nucleated RBC Nucleated RBC % (auto) PT INR D-Dimer High Sensitivty VBG pH VBG pCO2 VBG pO2 VBG HCO3 VBG O2 Saturation VBG Base Excess Anion Gap Estim Creat Clear Calc Estimated GFR POC Glucose Random Glucose Calcium Magnesium Total Bilirubin Direct Bilirubin AST ALT Alkaline Phosphatase B-Natriuretic Peptide Total Protein Albumin Urine Color Urine Appearance Urine pH Ur Specific [place] Urine Protein 300 (3+) H Urine Glucose (UA) 100 H 100 H Urine Ketones Negative Negative Urine Blood Negative Urine Nitrite Ur Leukocyte Esterase Urine RBC Urine WBC Ur Squamous Epith Cells Urine Bacteria Hyaline Casts Urine Opiates Screen Urine Fentanyl Screen Ur Barbiturates Screen Ur Phencyclidine Scrn Ur Amphetamines Screen U Benzodiazepines Scrn Urine Cocaine Screen U Marijuana (THC) Screen Influenza Type A (PCR) Influenza Type B (PCR) RSV RNA Qual (PCR) SARS-CoV-2 RNA (RT-PCR) 11/10/23 11/10/23 11/10/23 23:09 23:09 23:09 MCV MCH MCHC RDW Plt Count MPV Immature Gran % (Auto) Neut % (Auto) Lymph % (Auto) [place] % (Auto) Eos % (Auto) Baso % (Auto) Lymph # (Auto) [place] # (Auto) Eos # (Auto) Baso # (Auto) Abs Immat Gran (auto) Absolute Neuts (auto) Absolute Nucleated RBC Nucleated RBC % (auto) PT INR D-Dimer High Sensitivty VBG pH VBG pCO2 VBG pO2 VBG HCO3 VBG O2 Saturation VBG Base Excess Anion Gap Estim Creat Clear Calc Estimated GFR POC Glucose Random Glucose Calcium Magnesium Total Bilirubin Direct Bilirubin AST ALT Alkaline Phosphatase B-Natriuretic Peptide Total Protein Albumin Urine Color Urine Appearance Urine pH Ur Specific [place] Urine Protein Urine Glucose (UA) Urine Ketones Urine Blood Trace H Urine Nitrite Negative Negative Ur Leukocyte Esterase Trace H Trace H Urine RBC 3-5 H Urine WBC 11-20 H Ur Squamous Epith Cells 0-2 Urine Bacteria None Seen Hyaline Casts 0-2 Urine Opiates Screen Not Detected Urine Fentanyl Screen Not Detected Ur Barbiturates Screen Not Detected Ur Phencyclidine Scrn Not Detected Ur Amphetamines Screen Not Detected U Benzodiazepines Scrn Not Detected Urine Cocaine Screen POSITIVE H U Marijuana (THC) Screen Not Detected Influenza Type A (PCR) Influenza Type B (PCR) RSV RNA Qual (PCR) SARS-CoV-2 RNA (RT-PCR) 11/11/23 07:11 MCV MCH MCHC RDW Plt Count MPV Immature Gran % (Auto) Neut % (Auto) Lymph % (Auto) [place] % (Auto) Eos % (Auto) Baso % (Auto) Lymph # (Auto) [place] # (Auto) Eos # (Auto) Baso # (Auto) Abs Immat Gran (auto) Absolute Neuts (auto) Absolute Nucleated RBC Nucleated RBC % (auto) PT INR D-Dimer High Sensitivty VBG pH VBG pCO2 VBG pO2 VBG HCO3 VBG O2 Saturation VBG Base Excess Anion Gap Estim Creat Clear Calc Estimated GFR POC Glucose 312 H Random Glucose Calcium Magnesium Total Bilirubin Direct Bilirubin AST ALT Alkaline Phosphatase B-Natriuretic Peptide Total Protein Albumin Urine Color Urine Appearance Urine pH Ur Specific [place] Urine Protein Urine Glucose (UA) Urine Ketones Urine Blood Urine Nitrite Ur Leukocyte Esterase Urine RBC Urine WBC Ur Squamous Epith Cells Urine Bacteria Hyaline Casts Urine Opiates Screen Urine Fentanyl Screen Ur Barbiturates Screen Ur Phencyclidine Scrn Ur Amphetamines Screen U Benzodiazepines Scrn Urine Cocaine Screen U Marijuana (THC) Screen Influenza Type A (PCR) Influenza Type B (PCR) RSV RNA Qual (PCR) SARS-CoV-2 RNA (RT-PCR) Assessment and Plan (1) Hypoxia: Status: Acute Plan 58M PMH CKD IV, chronic diastolic chf, dm, htn, hld, mood disorder, presented with weakness, found to have kwame on ckd iv, rsv, hypoxia acute hypoxic respiratory failure secondary to acute on chronic diastolic CHF and RSV Continue IV Bumex, Solu-Medrol, bronchodilators, wean O2 as tolerated Diabetes Continue basal bolus insulin Acute kidney injury on CKD 4 Monitor closely while on diuretics, nephrology eval Hold lisinopril and Aldactone Continue bicarb p.o. Hypertension Continue amlodipine, hydralazine, Holding Aldactone and lisinopril for KWAME Hyperlipidemia Statin Chronic anemia due to kidney disease Monitor DVT prophylaxis with lovenox Full code reason for continued hospitalization:hpyoxia Quality Stroke Does the patient have a stroke diagnosis?: No VTE Prior VTE?: No VTE Risk Level:: Medical - moderate - high VTE Device Contraindication: Treatment Not Indicated VTE Drug Contraindication: N/A - Med Ordered
--- NOTE | 2023-11-11 09:55 | P.CONNP_ITS ---
History of Present Illness Reason for Consult Consult date: 11/11/23 Reason for consult: Chronic kidney disease Chief Complaint Chief complaint: dyspnea History of Present Illness Narrative: 58-year-old male with history of congestive heart failure with preserved ejection fraction, insulin-dependent type 2 diabetes mellitus with diabetic neuropathy, advanced chronic kidney disease, chronic normocytic anemia, essential hypertension, hyperlipidemia, mood disorder who presents to the emergency department for evaluation of presyncope and falls. Patient states he fell 2 times in the last 1 week including on the day of presentation. This patient is well-known to me and he was very happy to see me today. He was previously seen by me during previous admission. He is also seen in my office on 03/17/2023. He has advanced CKD and biopsy-proven diabetic nephropathy. No immune complexes were identified. His baseline serum creatinine is around 4-4.4 mg/dL. Son was at the bedside as well Review of Systems Constitutional: Denies fever(s) and Denies weight loss Cardiovascular: Denies chest pain Respiratory: Denies cough and Denies hemoptysis Gastrointestinal: Denies abdominal pain, Denies diarrhea and Denies nausea Musculoskeletal: Denies back pain Denies focal weakness [facility] Past Medical History Medical History (Updated 11/11/23 @ 10:04 by Jose L Rosario MD) Anemia Congestive heart failure Nephrotic syndrome Diastolic heart failure Anemia Pneumonia Diabetic nephropathy Anemia Chronic pain syndrome Diabetic polyneuropathy Vitamin D deficiency Depression HTN (hypertension) HLD (hyperlipidemia) T2DM (type 2 diabetes mellitus) Family History Family History Father Colon cancer Mother History of kidney problems T2DM (type 2 diabetes mellitus) Sister T2DM (type 2 diabetes mellitus) Surgical History Surgical History Status post biopsy of kidney Hx of colonoscopy Hx of rotator cuff surgery Social History Social History Household Members: None Housing: Apartment Do you presently have visiting nurse or other home services: No ([employer] service 13/06) Alcohol intake: former Comment: allowed to walk in room Patient Tobacco Use Status: Never used Tobacco Substance Use Type: Crack/Cocaine Advance Directives Date on File: 04/28/23 service: No Current occupational status: disabled Current occupation: right handed Meds Allergies Allergy/AdvReac Type Severity Reaction Status Date / Time No Known Allergies Allergy Verified 11/10/23 17:06 [No Known Allergies*] Active Medications: Current Medications Acetaminophen (Acetaminophen 325 Mg Tablet) 650 mg PO Q6H PRN PRN Reason: Pain, Mild (Pain Scale 1-3) Last Admin: 11/11/23 08:42 Dose: 650 mg Albuterol/Ipratropium (Albuterol/Iprat 2.5/0.5mg 3 Ml Ampul.Neb) 3 ml INHALE RQ4H WHILE AWAKE [facility] Last Admin: 11/11/23 08:11 Dose: 3 ml Albuterol/Ipratropium (Albuterol/Iprat 2.5/0.5mg 3 Ml Ampul.Neb) 3 ml INHALE Q4H PRN PRN Reason: Wheezing Last Admin: 11/11/23 00:09 Dose: 3 ml Amlodipine Besylate (Amlodipine Besylate 10 Mg Tablet) 10 mg PO DAILY [facility]; Protocol Atorvastatin Calcium (Atorvastatin Calcium 80 Mg Tablet) 80 mg PO DAILY [facility] Last Admin: 11/11/23 08:40 Dose: 80 mg Benztropine Mesylate (Benztropine Mesylate 0.5 Mg Tablet) 0.5 mg PO DAILY [facility] Last Admin: 11/11/23 08:39 Dose: 0.5 mg Bumetanide (Bumetanide 1 Mg/4 Ml Vial) 4 mg IVPUSH BID@0900,1700 [facility]; Protocol Last Admin: 11/11/23 08:42 Dose: 4 mg Dextrose (Dextrose 50 % 25 Gm/50 Ml Syringe) 25 gm IVPUSH Q15M PRN; Protocol PRN Reason: per Hypoglycemia Standing Ord. Enoxaparin Sodium (Enoxaparin Sodium 30 Mg/0.3 Ml Syringe) 30 mg SUBCUT Q24H [facility] Last Admin: 11/10/23 20:28 Dose: 30 mg Ferrous Sulfate (Ferrous Sulfate 324 Mg Tablet.Dr) 324 mg PO DAILY [facility] Last Admin: 11/11/23 08:40 Dose: 324 mg Gabapentin (Gabapentin 100 Mg Capsule) 100 mg PO BID [facility] Last Admin: 11/11/23 08:39 Dose: 100 mg Glucose (Glucose Gel 15 Gm Gel..Gram.) 15 gm PO Q15M PRN; Protocol PRN Reason: per Hypoglycemia Standing Ord. Hydralazine HCl (Hydralazine Hcl 50 Mg Tablet) 150 mg PO BID [facility]; Protocol Last Admin: 11/11/23 08:39 Dose: 150 mg Insulin Glargine (Insulin Glargine,Hum.Rec.Anlog 100 Unit/Ml 10 Ml Vial) 20 unit SUBCUT BEDTIME [facility] Last Admin: 11/10/23 22:19 Dose: 20 unit Insulin Human Lispro (Insulin Lispro 100 Unit/Ml 3 Ml Vial) 0 unit SUBCUT QIDACHS [facility]; Protocol Last Admin: 11/11/23 08:36 Dose: 8 unit Melatonin (Melatonin 3 Mg Tablet) 6 mg PO BEDTIME PRN PRN Reason: Insomnia Methylprednisolone Sodium Succinate (Methylprednisolone Sod Succ 40 Mg/Ml Vial) 40 mg IVPUSH Q12H [facility] Last Admin: 11/11/23 08:40 Dose: 40 mg Ondansetron HCl (Ondansetron Hcl 4 Mg/2 Ml Vial) 4 mg IVPUSH Q8H PRN PRN Reason: Nausea and Vomiting Sodium Bicarbonate (Sodium Bicarbonate 650 Mg Tablet) 650 mg PO BID [facility] Last Admin: 11/11/23 08:40 Dose: 650 mg Sodium Chloride (0.9 % Sodium Chloride Flush 3 Ml Syringe) 3 ml IVFLUSH QSHIFT [facility] Last Admin: 11/11/23 08:37 Dose: 3 ml Tamsulosin HCl (Tamsulosin Hcl 0.4 Mg Capsule) 0.4 mg PO DAILY [facility] Last Admin: 11/11/23 08:40 Dose: 0.4 mg Trazodone HCl (Trazodone Hcl 50 Mg Tablet) 50 mg PO BEDTIME PRN PRN Reason: Insomnia Ziprasidone (Ziprasidone 60 Mg Capsule) 60 mg PO BID [facility] Last Admin: 11/11/23 08:39 Dose: 60 mg Home Medications Medication Instructions Recorded Confirmed Last Taken Type insulin glargine 100 unit/mL (3 25 unit subcut DAILY 12/22/20 11/10/23 01/30/23 History mL) subcutaneous pen (Lantus Solostar U-100 Insulin) insulin lispro 100 unit/mL 15 unit subcut TIDAC 12/22/20 11/10/23 11/10/23 History subcutaneous pen (Humalog KwikPen (U-100) Insulin) diphenhydramine HCl 25 mg capsule 25 mg PO BEDTIME 04/18/23 11/10/23 11/09/23 History (Benadryl) ferrous sulfate 325 mg (65 mg 325 mg PO DAILY 04/18/23 11/10/23 11/10/23 History iron) tablet tamsulosin 0.4 mg capsule 0.4 mg PO DAILY 04/18/23 11/10/23 11/10/23 History ziprasidone HCl 60 mg capsule 60 mg PO BID 04/18/23 11/10/23 11/10/23 History (Geodon) atorvastatin 80 mg tablet 80 mg PO DAILY 05/23/23 11/10/23 11/10/23 History benztropine 0.5 mg tablet 0.5 mg DAILY 10/14/23 11/10/23 11/10/23 History lisinopril 40 mg tablet 40 mg PO DAILY 10/14/23 11/10/23 11/10/23 History trazodone 50 mg tablet 50 - 100 mg PO BEDTIME PRN Insomnia 10/14/23 11/10/23 Unknown History gabapentin 100 mg capsule 100 mg PO BID 11/10/23 11/10/23 11/10/23 History hydralazine 50 mg tablet 150 mg PO BID 11/10/23 11/10/23 Unknown History carvedilol 6.25 mg tablet 6.25 mg PO BID 11/11/23 11/11/23 Unknown History Physical Exam Vital Signs: Last Vital Signs Temp 97.2 F 11/11/23 07:20 Pulse 88 11/11/23 08:13 Resp 18 11/11/23 08:13 BP 149/70 H 11/11/23 08:03 Pulse Ox 96 11/11/23 07:20 O2 Del Method Nasal Cannula 11/11/23 07:20 O2 Flow Rate 3 11/11/23 07:20 BMI result Body Mass Index 28.8 Const Nutritional Appearance: well nourished Orientation/consciousness: patient oriented x3 HEENT Head: No normal to inspection Mouth: moist mucous membranes Neck Neck: Yes supple and Yes no JVD Resp Auscultation: rales Cardio Palpation: no palpable S3 and no palpable S4 Heart sounds: no rubs GI Palpation (GI): Soft to palpation and nontender Percussion: No Fluid wave present General: Yes no CVA tenderness Back/Spine/Pelvis Back: no CVA tenderness Skin General skin exam: no rashes or lesions noted Neuro General: patient oriented x3 Extrem General: No clubbing and Yes pedal edema Results Lab Results 11/10/23 17:44 11/10/23 17:44 Lab results: Chemistry 11/10/23 17:44 Sodium 133 L Potassium 4.5 Carbon Dioxide 17 L BUN 73 H Creatinine 4.12 H* Calcium 8.1 L Hematology 11/10/23 17:44 WBC 8.0 Hgb 7.7 L Plt Count 172 D Urinalysis 11/10/23 11/10/23 11/10/23 23:09 23:09 23:09 Urine Color Yellow Yellow Urine Appearance Clear Clear Urine pH 6.0 Ur Specific [place] Urine Protein Urine Glucose (UA) Urine Ketones Urine Blood Urine Nitrite Ur Leukocyte Esterase Urine RBC Urine WBC Ur Squamous Epith Cells Hyaline Casts 11/10/23 11/10/23 11/10/23 23:09 23:09 23:09 Urine Color Urine Appearance Urine pH 5.5 Ur Specific [place] 1.010 1.010 Urine Protein 300 (3+) H 300 (3+) H Urine Glucose (UA) 100 H Urine Ketones Urine Blood Urine Nitrite Ur Leukocyte Esterase Urine RBC Urine WBC Ur Squamous Epith Cells Hyaline Casts 11/10/23 11/10/23 11/10/23 23:09 23:09 23:09 Urine Color Urine Appearance Urine pH Ur Specific [place] Urine Protein Urine Glucose (UA) 100 H Urine Ketones Negative Negative Urine Blood Negative Trace H Urine Nitrite Negative Ur Leukocyte Esterase Urine RBC Urine WBC Ur Squamous Epith Cells Hyaline Casts 11/10/23 11/10/23 23:09 23:09 Urine Color Urine Appearance Urine pH Ur Specific [place] Urine Protein Urine Glucose (UA) Urine Ketones Urine Blood Urine Nitrite Negative Ur Leukocyte Esterase Trace H Trace H Urine RBC 3-5 H Urine WBC 11-20 H Ur Squamous Epith Cells 0-2 Hyaline Casts 0-2 Assessment and Plan (1) Acute kidney injury superimposed on chronic kidney disease: Status: Acute (2) CHF (congestive heart failure): Status: Acute (3) Secondary hyperparathyroidism: Status: Acute (4) Hyponatremia: Status: Acute (5) Metabolic acidosis: Status: Acute Plan 58-year-old man with CKD 4 due to diabetic nephropathy , admitted with shortness of breath due to underlying congestive heart failure. He has significant anemia as well. He has sustained superimposed acute kidney injury with a creatinine bumping up from the baseline of 3.5 by up to 4.4. This is most likely due to hypoperfusion. No clinical evidence of obstruction. Recommendations 2 g sodium diet. Agree with diuresis with IV Bumex. Keep output more than the intake Restrict oral free water intake to 1.2 L per 24 hours Follow daily weights. Check iron TIBC ferritin. Transfuse PRBCs if hemoglobin drops further. Restart calcitriol 0.25 mcg on Tuesday No absolute indication for dialysis today If he fails to respond to diuretics he may be requiring in no replacement therapy. Show follow-up closely along with the team. Procedures Date of Service Date of Service: 11/11/23
[2023-11-11] MEDS: amLODIPine Besylate 10 MG TABLET PO (10:14)
[2023-11-11 11:07] LABS: Glucose, Whole Blood 344 mg/dL (60-115)
[2023-11-11] MEDS: calcitrioL 0.25 MCG CAPSULE PO (11:18)
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
[2023-11-11 11:56] LABS: MANUAL DIFF FLAG NO
[2023-11-11 11:58] LABS: Hematocrit 23.5 % (42.0-52.0); Hemoglobin 7.7 g/dl (14.0-18.0); Imm Gran Abs Auto 0.02 X10*3/uL (0.00-0.03); Imm Gran Pct Auto 0.5 % (0.0-0.4); Lymphocytes Absolute Auto 0.4 X10*3/uL (1.2-4.9); Lymphocytes Percent Auto 9.5 % (20-40); Mean Corpuscular HGB Conc 32.8 g/dl (31.0-36.0); Mean Corpuscular Hemoglobin 27.2 pg (27.0-33.0); Mean Platelet Volume 9.6 fL (9.4-12.4); Monocytes Absolute Auto 0.1 X10*3/uL (0.1-1.2); Monocytes Percent Auto 3.1 % (2-11); Neutrophils Absolute Auto 3.7 x10*3/uL (2.0-8.3); Neutrophils Percent Auto 86.9 % (45-73); Platelet Count 166 X10*3/uL (160-400); Red Blood Count 2.83 X10*6/uL (4.60-5.80); Red Cell Distribution Width 16.6 % (11.0-16.0); White Blood Count 4.2 X10*3/uL (4.8-10.8)
[2023-11-11 12:02] LABS: VBG Base Excess -5.7 mmol/L; VBG HCO3 17 mmol/L (22-26); VBG pCO2 27 mmHg; VBG pH 7.41 (7.32-7.43); VBG pO2 141 mmHg
[2023-11-11 12:03] LABS: Venous Blood Gas Refer to POC result
[2023-11-11 12:32] LABS: Anion Gap 17 (12-20); Blood Urea Nitrogen 78 mg/dL (9-16); Calcium 7.9 mg/dL (8.4-10.2); Carbon Dioxide 18 mmol/L (22-29); Chloride 101 mmol/L (96-108); Creatinine Clr Calc Pharmacy 17.5; Estimated Glomerular Filt Rate 15; Glucose Random 429 mg/dL (60-115); Potassium 4.5 mmol/L (3.3-5.1); Sodium 131 mmol/L (135-145)
[2023-11-11] MEDS: Insulin Lispro 100 UNIT/ML 3 ML VIAL 10 UNIT SUBCUT (12:41)
--- NOTE | 2023-11-11 14:18 | MHC.CM.PN ---
IMM 11/11/23 Male 58 DX Dispnea He lives alone. He has [employer]IST services in place thru [facility]. No AD needed. HCP is on file, sister Phyllis'. She alson assists with transportation to appointments. 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 Patients son will transport home.
[2023-11-11 16:20] LABS: Glucose, Whole Blood 261 mg/dL (60-115)
[2023-11-11 20:03] LABS: Glucose, Whole Blood 269 mg/dL (60-115)
[2023-11-11] MEDS: Enoxaparin Sodium 30 MG/0.3 ML SYRINGE SUBCUT (20:18)
[2023-11-11] MEDS: carvediloL 6.25 MG TABLET PO (20:19)
[2023-11-11] MEDS: Insulin Glargine,Hum.rec.anlog 100 UNIT/ML 10 ML VIAL 20 UNIT SUBCUT (20:20)
[2023-11-12] VITALS (8 sets, daily range): BP systolic 135–151; BP diastolic 67–76; PULSE 79–87; RESP 17–18; TEMP 36–36.6; O2SAT 97–99
--- NOTE | 2023-11-12 06:02 | PC.NURSE ---
pt sister told me pt was lived alone with [employer] services but now pt lives with her and family bc he andrew't take care of himself. she is the HCP and [employer]. She requested for the hospital bed bc He has CHF, frequently wakes up at night. bed head needed to be elevated it. throughout the night pt uses O2 2L via NC. no discomfort, no distress. most night slept. will continue to monitor.
[2023-11-12 06:41] LABS: Hematocrit 24.4 % (42.0-52.0); Hemoglobin 8.1 g/dl (14.0-18.0); Mean Corpuscular HGB Conc 33.2 g/dl (31.0-36.0); Mean Corpuscular Hemoglobin 27.4 pg (27.0-33.0); Mean Corpuscular Volume 82.4 fL (80.0-98.0); Mean Platelet Volume 9.9 fL (9.4-12.4); Platelet Count 188 X10*3/uL (160-400); Red Blood Count 2.96 X10*6/uL (4.60-5.80); Red Cell Distribution Width 16.3 % (11.0-16.0)
[2023-11-12 07:41] LABS: Anion Gap 15 (12-20); Blood Urea Nitrogen 88 mg/dL (9-16); Carbon Dioxide 20 mmol/L (22-29); Chloride 100 mmol/L (96-108); Creatinine Clr Calc Pharmacy 18.5; Estimated Glomerular Filt Rate 16; Glucose Fasting 442 mg/dL (60-99); Iron 62 mcg/dL (45-160); Percent Iron Saturation 43 % (15-50); Potassium 4.4 mmol/L (3.3-5.1); Sodium 131 mmol/L (135-145); Total Iron Binding Capacity 145 mcg/dL (228-428); Unsaturated Iron Binding 83 ug/dL
[2023-11-12] MEDS: Albuterol/Iprat 2.5/0.5MG 3 ML AMPUL.NEB INHALE ×4 (07:45→19:48)
[2023-11-12 07:51] LABS: Glucose, Whole Blood 391 mg/dL (60-115)
--- NOTE | 2023-11-12 08:34 | PM.EVENT ---
Event Note Date of Service: 11/12/23 Event Note: Events noted Cr at 4.01 I/Os noted Can administer additional dose of Bumex: 2 mg IV x dose Iron studies noted Added Procrit x 1 dose Time Spent With Patient Time: Total time managing care of this patient today ____ minutes.
[2023-11-12] MEDS: Benztropine Mesylate 0.5 MG TABLET PO (08:47)
[2023-11-12] MEDS: Bumetanide 1 MG/4 ML VIAL 4 MG IVPUSH ×2 (08:47→16:58)
[2023-11-12] MEDS: amLODIPine Besylate 10 MG TABLET PO (08:47)
[2023-11-12] MEDS: hydrALAZINE HCl 50 MG TABLET 150 MG PO ×2 (08:47→21:15)
[2023-11-12] MEDS: Sodium Bicarbonate 650 MG TABLET PO ×2 (08:47→21:15)
[2023-11-12] MEDS: methylPREDNISolone Sod Succ 40 MG/ML VIAL IVPUSH ×2 (08:47→21:15)
[2023-11-12] MEDS: Insulin Lispro 100 UNIT/ML 3 ML VIAL SUBCUT ×7 (08:48→21:16)
[2023-11-12] MEDS: Tamsulosin HCL 0.4 MG CAPSULE PO (08:48)
[2023-11-12] MEDS: Ferrous Sulfate 324 MG TABLET.DR PO (08:48)
[2023-11-12] MEDS: carvediloL 6.25 MG TABLET PO ×2 (08:48→21:15)
[2023-11-12] MEDS: Atorvastatin Calcium 80 MG TABLET PO (08:48)
[2023-11-12] MEDS: Ziprasidone 60 MG CAPSULE PO ×2 (08:48→21:15)
[2023-11-12] MEDS: 0.9 % Sodium Chloride Flush 3 ML SYRINGE IVFLUSH ×3 (08:48→21:15)
--- NOTE | 2023-11-12 09:26 | HO.PM.IMPN ---
Subjective Subjective Date of Service: 11/12/23 Interval History: more alert, less edema Physical Exam Vital Signs: Vital Signs: Last Vital Signs Temp 96.8 F 11/12/23 07:44 Pulse 83 11/12/23 07:52 Resp 18 11/12/23 07:52 BP 148/70 H 11/12/23 07:44 Pulse Ox 98 11/12/23 07:44 O2 Del Method Nasal Cannula 11/12/23 07:44 O2 Flow Rate 2 11/12/23 07:44 BMI result Body Mass Index 28.8 Const: Nutritional Appearance: well nourished Orientation/consciousness: patient oriented x3 HEENT: Head: No normal to inspection Mouth: moist mucous membranes Neck: Neck: Yes supple and Yes no JVD Resp: Auscultation: rales Cardio: Palpation: no palpable S3 and no palpable S4 Heart sounds: no rubs GI: Palpation (GI): Soft to palpation and nontender Percussion: No Fluid wave present : General: Yes no CVA tenderness Back/Spine/Pelvis: Back: no CVA tenderness Skin: General skin exam: no rashes or lesions noted Neuro: General: patient oriented x3 Extrem: General: No clubbing and Yes pedal edema Objective Data Active Medications Acetaminophen (Acetaminophen 325 Mg Tablet) 650 mg PO Q6H PRN PRN Reason: Pain, Mild (Pain Scale 1-3) Last Admin: 11/11/23 08:42 Dose: 650 mg Documented By: BRIAN Albuterol/Ipratropium (Albuterol/Iprat 2.5/0.5mg 3 Ml Ampul.Neb) 3 ml INHALE RQ4H WHILE AWAKE [facility] Last Admin: 11/12/23 07:45 Dose: 3 ml Documented By: VIBHA Albuterol/Ipratropium (Albuterol/Iprat 2.5/0.5mg 3 Ml Ampul.Neb) 3 ml INHALE Q4H PRN PRN Reason: Wheezing Last Admin: 11/11/23 00:09 Dose: 3 ml Documented By: JAYCEE Amlodipine Besylate (Amlodipine Besylate 10 Mg Tablet) 10 mg PO DAILY [facility]; Protocol Last Admin: 11/12/23 08:47 Dose: 10 mg Documented By: BRAD Atorvastatin Calcium (Atorvastatin Calcium 80 Mg Tablet) 80 mg PO DAILY [facility] Last Admin: 11/12/23 08:48 Dose: 80 mg Documented By: BRAD Benztropine Mesylate (Benztropine Mesylate 0.5 Mg Tablet) 0.5 mg PO DAILY [facility] Last Admin: 11/12/23 08:47 Dose: 0.5 mg Documented By: BRAD Bumetanide (Bumetanide 1 Mg/4 Ml Vial) 4 mg IVPUSH BID@0900,1700 [facility]; Protocol Last Admin: 11/12/23 08:47 Dose: 4 mg Documented By: BRAD Calcitriol (Calcitriol 0.25 Mcg Capsule) 0.25 mcg PO MoWeFr [facility] Last Admin: 11/11/23 11:18 Dose: 0.25 mcg Documented By: BRIAN Carvedilol (Carvedilol 6.25 Mg Tablet) 6.25 mg PO BID [facility]; Protocol Last Admin: 11/12/23 08:48 Dose: 6.25 mg Documented By: BRAD Dextrose (Dextrose 50 % 25 Gm/50 Ml Syringe) 25 gm IVPUSH Q15M PRN; Protocol PRN Reason: per Hypoglycemia Standing Ord. Enoxaparin Sodium (Enoxaparin Sodium 30 Mg/0.3 Ml Syringe) 30 mg SUBCUT Q24H [facility] Last Admin: 11/11/23 20:18 Dose: 30 mg Documented By: JASMINA Ferrous Sulfate (Ferrous Sulfate 324 Mg Tablet.Dr) 324 mg PO DAILY [facility] Last Admin: 11/12/23 08:48 Dose: 324 mg Documented By: BRAD Glucose (Glucose Gel 15 Gm Gel..Gram.) 15 gm PO Q15M PRN; Protocol PRN Reason: per Hypoglycemia Standing Ord. Hydralazine HCl (Hydralazine Hcl 50 Mg Tablet) 150 mg PO BID [facility]; Protocol Last Admin: 11/12/23 08:47 Dose: 150 mg Documented By: BRAD Insulin Glargine (Insulin Glargine,Hum.Rec.Anlog 100 Unit/Ml 10 Ml Vial) 20 unit SUBCUT BEDTIME [facility] Last Admin: 11/11/23 20:20 Dose: 20 unit Documented By: JASMINA Insulin Human Lispro (Insulin Lispro 100 Unit/Ml 3 Ml Vial) 0 unit SUBCUT QIDACHS [facility]; Protocol Last Admin: 11/12/23 08:48 Dose: 10 unit Documented By: BRAD Melatonin (Melatonin 3 Mg Tablet) 6 mg PO BEDTIME PRN PRN Reason: Insomnia Methylprednisolone Sodium Succinate (Methylprednisolone Sod Succ 40 Mg/Ml Vial) 40 mg IVPUSH Q12H [facility] Last Admin: 11/12/23 08:47 Dose: 40 mg Documented By: BRAD Ondansetron HCl (Ondansetron Hcl 4 Mg/2 Ml Vial) 4 mg IVPUSH Q8H PRN PRN Reason: Nausea and Vomiting Sodium Bicarbonate (Sodium Bicarbonate 650 Mg Tablet) 650 mg PO BID [facility] Last Admin: 11/12/23 08:47 Dose: 650 mg Documented By: BRAD Sodium Chloride (0.9 % Sodium Chloride Flush 3 Ml Syringe) 3 ml IVFLUSH QSHIFT [facility] Last Admin: 11/12/23 08:48 Dose: 3 ml Documented By: BRAD Tamsulosin HCl (Tamsulosin Hcl 0.4 Mg Capsule) 0.4 mg PO DAILY [facility] Last Admin: 11/12/23 08:48 Dose: 0.4 mg Documented By: BRAD Trazodone HCl (Trazodone Hcl 50 Mg Tablet) 50 mg PO BEDTIME PRN PRN Reason: Insomnia Ziprasidone (Ziprasidone 60 Mg Capsule) 60 mg PO BID [facility] Last Admin: 11/12/23 08:48 Dose: 60 mg Documented By: BRAD Labs 11/12/23 06:25 11/12/23 06:25 Labs: Laboratory Results - last 24 hr 11/11/23 11/11/23 11/11/23 11:02 11:52 11:56 MCV 83.0 MCH 27.2 MCHC 32.8 RDW 16.6 H Plt Count 166 MPV 9.6 Immature Gran % (Auto) 0.5 H Neut % (Auto) 86.9 H Lymph % (Auto) 9.5 L [place] % (Auto) 3.1 Eos % (Auto) 0.0 Baso % (Auto) 0.0 Lymph # (Auto) 0.4 L [place] # (Auto) 0.1 Eos # (Auto) 0.0 Baso # (Auto) 0.0 Abs Immat Gran (auto) 0.02 Absolute Neuts (auto) 3.7 Absolute Nucleated RBC 0.000 Nucleated RBC % (auto) 0.0 VBG pH 7.41 VBG pCO2 27 VBG pO2 141 VBG HCO3 17 L VBG O2 Saturation 99.0 VBG Base Excess -5.7 Anion Gap 17 Estim Creat Clear Calc 17.5 Estimated GFR 15 POC Glucose 344 H Random Glucose 429 H* Fasting Glucose Calcium 7.9 L Iron TIBC % Saturation Unsat Iron Binding 11/11/23 11/11/23 11/12/23 16:15 19:57 06:25 MCV 82.4 MCH 27.4 MCHC 33.2 RDW 16.3 H Plt Count 188 MPV 9.9 Immature Gran % (Auto) Neut % (Auto) Lymph % (Auto) [place] % (Auto) Eos % (Auto) Baso % (Auto) Lymph # (Auto) [place] # (Auto) Eos # (Auto) Baso # (Auto) Abs Immat Gran (auto) Absolute Neuts (auto) Absolute Nucleated RBC 0.000 Nucleated RBC % (auto) 0.0 VBG pH VBG pCO2 VBG pO2 VBG HCO3 VBG O2 Saturation VBG Base Excess Anion Gap 15 Estim Creat Clear Calc 18.5 Estimated GFR 16 POC Glucose 261 H 269 H Random Glucose Fasting Glucose 442 H* Calcium 8.0 L Iron 62 TIBC 145 L % Saturation 43 Unsat Iron Binding 83 11/12/23 07:43 MCV MCH MCHC RDW Plt Count MPV Immature Gran % (Auto) Neut % (Auto) Lymph % (Auto) [place] % (Auto) Eos % (Auto) Baso % (Auto) Lymph # (Auto) [place] # (Auto) Eos # (Auto) Baso # (Auto) Abs Immat Gran (auto) Absolute Neuts (auto) Absolute Nucleated RBC Nucleated RBC % (auto) VBG pH VBG pCO2 VBG pO2 VBG HCO3 VBG O2 Saturation VBG Base Excess Anion Gap Estim Creat Clear Calc Estimated GFR POC Glucose 391 H* Random Glucose Fasting Glucose Calcium Iron TIBC % Saturation Unsat Iron Binding Assessment and Plan (1) Hypoxia: Status: Acute Plan 58M PMH CKD IV, chronic diastolic chf, dm, htn, hld, mood disorder, presented with weakness, found to have kwame on ckd iv, rsv, hypoxia acute hypoxic respiratory failure secondary to acute on chronic diastolic CHF and RSV Continue IV Bumex, Solu-Medrol, bronchodilators, wean O2 as tolerated Diabetes Continue basal bolus insulin Acute kidney injury on CKD 4 Monitor closely while on diuretics, nephrology following Hold lisinopril and Aldactone Continue bicarb p.o. Hypertension Continue amlodipine, hydralazine, Holding Aldactone and lisinopril for KWAME Hyperlipidemia Statin Chronic anemia due to kidney disease Monitor DVT prophylaxis with lovenox Full code reason for continued hospitalization:hypoxia Quality Stroke Does the patient have a stroke diagnosis?: No VTE Prior VTE?: No VTE Risk Level:: Medical - moderate - high VTE Device Contraindication: Treatment Not Indicated VTE Drug Contraindication: N/A - Med Ordered
[2023-11-12 11:41] LABS: Glucose, Whole Blood 382 mg/dL (60-115)
[2023-11-12 16:31] LABS: Glucose, Whole Blood 274 mg/dL (60-115)
[2023-11-12] MEDS: Insulin Glargine,Hum.rec.anlog 100 UNIT/ML 10 ML VIAL 25 UNIT SUBCUT (21:15)
[2023-11-12] MEDS: Enoxaparin Sodium 30 MG/0.3 ML SYRINGE SUBCUT (21:15)
[2023-11-12 21:21] LABS: Glucose, Whole Blood 329 mg/dL (60-115)
[2023-11-12] MEDS: traZODone HCL 50 MG TABLET PO (22:22)
[2023-11-12] MEDS: Melatonin 3 MG TABLET 6 MG PO (22:22)
[2023-11-13] VITALS (9 sets, daily range): BP systolic 142–161; BP diastolic 66–74; PULSE 64–89; RESP 8–28; TEMP 36.4–36.9; O2SAT 96–99
[2023-11-13 07:01] LABS: Hematocrit 26.6 % (42.0-52.0); Hemoglobin 8.9 g/dl (14.0-18.0); Mean Corpuscular HGB Conc 33.5 g/dl (31.0-36.0); Mean Corpuscular Hemoglobin 27.1 pg (27.0-33.0); Mean Corpuscular Volume 81.1 fL (80.0-98.0); Mean Platelet Volume 9.7 fL (9.4-12.4); Platelet Count 229 X10*3/uL (160-400); Red Blood Count 3.28 X10*6/uL (4.60-5.80); Red Cell Distribution Width 16.3 % (11.0-16.0); White Blood Count 13.1 X10*3/uL (4.8-10.8)
[2023-11-13 07:31] LABS: Anion Gap 15 (12-20); Blood Urea Nitrogen 102 mg/dL (9-16); Calcium 8.2 mg/dL (8.4-10.2); Carbon Dioxide 19 mmol/L (22-29); Chloride 102 mmol/L (96-108); Creatinine Clr Calc Pharmacy 17.3; Estimated Glomerular Filt Rate 14; Glucose Fasting 297 mg/dL (60-99); Potassium 4.4 mmol/L (3.3-5.1); Sodium 132 mmol/L (135-145)
[2023-11-13 07:51] LABS: Glucose, Whole Blood 284 mg/dL (60-115)
[2023-11-13] MEDS: hydrALAZINE HCl 50 MG TABLET 150 MG PO ×2 (08:03→21:16)
[2023-11-13] MEDS: carvediloL 6.25 MG TABLET PO ×2 (08:03→21:16)
[2023-11-13] MEDS: Tamsulosin HCL 0.4 MG CAPSULE PO (08:03)
[2023-11-13] MEDS: Sodium Bicarbonate 650 MG TABLET PO ×2 (08:03→21:16)
[2023-11-13] MEDS: Ferrous Sulfate 324 MG TABLET.DR PO (08:03)
[2023-11-13] MEDS: Atorvastatin Calcium 80 MG TABLET PO (08:03)
[2023-11-13] MEDS: Ziprasidone 60 MG CAPSULE PO ×2 (08:03→21:16)
[2023-11-13] MEDS: Benztropine Mesylate 0.5 MG TABLET PO (08:03)
[2023-11-13] MEDS: Insulin Lispro 100 UNIT/ML 3 ML VIAL SUBCUT ×8 (08:03→21:18)
[2023-11-13] MEDS: amLODIPine Besylate 10 MG TABLET PO (08:03)
[2023-11-13] MEDS: methylPREDNISolone Sod Succ 40 MG/ML VIAL IVPUSH ×2 (08:04→21:16)
[2023-11-13] MEDS: 0.9 % Sodium Chloride Flush 3 ML SYRINGE IVFLUSH ×3 (08:05→21:17)
[2023-11-13] MEDS: Insulin Glargine,Hum.rec.anlog 100 UNIT/ML 10 ML VIAL 25 UNIT SUBCUT ×2 (08:10→21:17)
[2023-11-13] MEDS: Bumetanide 1 MG TABLET 2 MG PO ×2 (08:12→16:59)
[2023-11-13] MEDS: Albuterol/Iprat 2.5/0.5MG 3 ML AMPUL.NEB INHALE ×3 (09:12→20:19)
--- NOTE | 2023-11-13 09:47 | HO.PM.IMPN ---
Subjective Subjective Date of Service: 11/13/23 Interval History: significant improvement Physical Exam Vital Signs: Vital Signs: Last Vital Signs Temp 98.0 F 11/13/23 07:34 Pulse 87 11/13/23 09:12 Resp 8 L 11/13/23 09:12 BP 155/74 H 11/13/23 07:34 Pulse Ox 98 11/13/23 09:17 O2 Del Method Room Air 11/13/23 07:34 O2 Flow Rate 2 11/12/23 19:22 BMI result Body Mass Index 28.8 Const: Nutritional Appearance: well nourished Orientation/consciousness: patient oriented x3 HEENT: Head: No normal to inspection Mouth: moist mucous membranes Neck: Neck: Yes supple and Yes no JVD Resp: Auscultation: rales Cardio: Palpation: no palpable S3 and no palpable S4 Heart sounds: no rubs GI: Palpation (GI): Soft to palpation and nontender Percussion: No Fluid wave present : General: Yes no CVA tenderness Back/Spine/Pelvis: Back: no CVA tenderness Skin: General skin exam: no rashes or lesions noted Neuro: General: patient oriented x3 Extrem: General: No clubbing and Yes pedal edema Objective Data Active Medications Acetaminophen (Acetaminophen 325 Mg Tablet) 650 mg PO Q6H PRN PRN Reason: Pain, Mild (Pain Scale 1-3) Last Admin: 11/11/23 08:42 Dose: 650 mg Documented By: BRIAN Albuterol/Ipratropium (Albuterol/Iprat 2.5/0.5mg 3 Ml Ampul.Neb) 3 ml INHALE RQ4H WHILE AWAKE [facility] Last Admin: 11/13/23 09:12 Dose: 3 ml Documented By: FINESSE Albuterol/Ipratropium (Albuterol/Iprat 2.5/0.5mg 3 Ml Ampul.Neb) 3 ml INHALE Q4H PRN PRN Reason: Wheezing Last Admin: 11/11/23 00:09 Dose: 3 ml Documented By: JAYCEE Amlodipine Besylate (Amlodipine Besylate 10 Mg Tablet) 10 mg PO DAILY [facility]; Protocol Last Admin: 11/13/23 08:03 Dose: 10 mg Documented By: LUPE Atorvastatin Calcium (Atorvastatin Calcium 80 Mg Tablet) 80 mg PO DAILY [facility] Last Admin: 11/13/23 08:03 Dose: 80 mg Documented By: LUPE Benztropine Mesylate (Benztropine Mesylate 0.5 Mg Tablet) 0.5 mg PO DAILY [facility] Last Admin: 11/13/23 08:03 Dose: 0.5 mg Documented By: LUPE Bumetanide (Bumetanide 1 Mg Tablet) 2 mg PO BID@0800,1700 [facility]; Protocol Last Admin: 11/13/23 08:12 Dose: 2 mg Documented By: LUPE Calcitriol (Calcitriol 0.25 Mcg Capsule) 0.25 mcg PO MoWeFr [facility] Last Admin: 11/11/23 11:18 Dose: 0.25 mcg Documented By: BRIAN Carvedilol (Carvedilol 6.25 Mg Tablet) 6.25 mg PO BID [facility]; Protocol Last Admin: 11/13/23 08:03 Dose: 6.25 mg Documented By: LUPE Dextrose (Dextrose 50 % 25 Gm/50 Ml Syringe) 25 gm IVPUSH Q15M PRN; Protocol PRN Reason: per Hypoglycemia Standing Ord. Enoxaparin Sodium (Enoxaparin Sodium 30 Mg/0.3 Ml Syringe) 30 mg SUBCUT Q24H [facility] Last Admin: 11/12/23 21:15 Dose: 30 mg Documented By: JASMINA Ferrous Sulfate (Ferrous Sulfate 324 Mg Tablet.Dr) 324 mg PO DAILY [facility] Last Admin: 11/13/23 08:03 Dose: 324 mg Documented By: LUPE Glucose (Glucose Gel 15 Gm Gel..Gram.) 15 gm PO Q15M PRN; Protocol PRN Reason: per Hypoglycemia Standing Ord. Hydralazine HCl (Hydralazine Hcl 50 Mg Tablet) 150 mg PO BID [facility]; Protocol Last Admin: 11/13/23 08:03 Dose: 150 mg Documented By: LUPE Insulin Glargine (Insulin Glargine,Hum.Rec.Anlog 100 Unit/Ml 10 Ml Vial) 25 unit SUBCUT BID [facility] Last Admin: 11/13/23 08:10 Dose: 25 unit Documented By: LUPE Insulin Human Lispro (Insulin Lispro 100 Unit/Ml 3 Ml Vial) 0 unit SUBCUT QIDACHS [facility]; Protocol Last Admin: 11/13/23 08:03 Dose: 6 unit Documented By: LUPE Insulin Human Lispro (Insulin Lispro 100 Unit/Ml 3 Ml Vial) 5 unit SUBCUT QIDACHS [facility] Last Admin: 11/13/23 08:04 Dose: 5 unit Documented By: LUPE Melatonin (Melatonin 3 Mg Tablet) 6 mg PO BEDTIME PRN PRN Reason: Insomnia Last Admin: 11/12/23 22:22 Dose: 6 mg Documented By: JASMINA Methylprednisolone Sodium Succinate (Methylprednisolone Sod Succ 40 Mg/Ml Vial) 40 mg IVPUSH Q12H [facility] Last Admin: 11/13/23 08:04 Dose: 40 mg Documented By: LUPE Ondansetron HCl (Ondansetron Hcl 4 Mg/2 Ml Vial) 4 mg IVPUSH Q8H PRN PRN Reason: Nausea and Vomiting Sodium Bicarbonate (Sodium Bicarbonate 650 Mg Tablet) 650 mg PO BID [facility] Last Admin: 11/13/23 08:03 Dose: 650 mg Documented By: LUPE Sodium Chloride (0.9 % Sodium Chloride Flush 3 Ml Syringe) 3 ml IVFLUSH QSHIFT [facility] Last Admin: 11/13/23 08:05 Dose: 3 ml Documented By: LUPE Tamsulosin HCl (Tamsulosin Hcl 0.4 Mg Capsule) 0.4 mg PO DAILY [facility] Last Admin: 11/13/23 08:03 Dose: 0.4 mg Documented By: LUPE Trazodone HCl (Trazodone Hcl 50 Mg Tablet) 50 mg PO BEDTIME PRN PRN Reason: Insomnia Last Admin: 11/12/23 22:22 Dose: 50 mg Documented By: JASMINA Ziprasidone (Ziprasidone 60 Mg Capsule) 60 mg PO BID [facility] Last Admin: 11/13/23 08:03 Dose: 60 mg Documented By: LUPE Labs 11/13/23 06:18 11/13/23 06:18 Labs: Laboratory Results - last 24 hr 11/12/23 11/12/23 11/12/23 11:37 16:23 20:40 MCV MCH MCHC RDW Plt Count MPV Absolute Nucleated RBC Nucleated RBC % (auto) Anion Gap Estim Creat Clear Calc Estimated GFR POC Glucose 382 H* 274 H 329 H Fasting Glucose Calcium 11/13/23 11/13/23 06:18 07:46 MCV 81.1 MCH 27.1 MCHC 33.5 RDW 16.3 H Plt Count 229 MPV 9.7 Absolute Nucleated RBC 0.000 Nucleated RBC % (auto) 0.0 Anion Gap 15 Estim Creat Clear Calc 17.3 Estimated GFR 14 POC Glucose 284 H Fasting Glucose 297 H Calcium 8.2 L Microbiology Microbiology Results: Microbiology 11/10/23 Unknown Urine Culture - Final Urine clean catch - Urine marques top No growth. Assessment and Plan (1) Hypoxia: Status: Acute Plan 58M PMH CKD IV, chronic diastolic chf, dm, htn, hld, mood disorder, presented with weakness, found to have kwame on ckd iv, rsv, hypoxia acute hypoxic respiratory failure secondary to acute on chronic diastolic CHF and RSV continue Solu-Medrol, bronchodilators, wean O2 as tolerated overall much improved, now on room air, will change to po bumex Diabetes Continue basal bolus insulin Acute kidney injury on CKD 4 nephrology following Hold lisinopril and Aldactone Continue bicarb p.o. Hypertension Continue amlodipine, hydralazine, Holding Aldactone and lisinopril for KWAME Hyperlipidemia Statin Chronic anemia due to kidney disease Monitor DVT prophylaxis with lovenox Full code reason for continued hospitalization:close monitoring for tolerance of room air given frailty KWAME/CKD IV Quality Stroke Does the patient have a stroke diagnosis?: No VTE Prior VTE?: No VTE Risk Level:: Medical - moderate - high VTE Device Contraindication: Treatment Not Indicated VTE Drug Contraindication: N/A - Med Ordered
[2023-11-13 11:34] LABS: Glucose, Whole Blood 232 mg/dL (60-115)
[2023-11-13 16:11] LABS: Glucose, Whole Blood 282 mg/dL (60-115)
[2023-11-13 20:42] LABS: Glucose, Whole Blood 306 mg/dL (60-115)
[2023-11-13] MEDS: Enoxaparin Sodium 30 MG/0.3 ML SYRINGE SUBCUT (21:17)
[2023-11-13] MEDS: traZODone HCL 50 MG TABLET PO (21:17)
[2023-11-13] MEDS: Melatonin 3 MG TABLET 6 MG PO (21:17)
[2023-11-14 04:00] VITALS: BP 157/75; PULSE 84; RESP 19; TEMP 36.4; O2SAT 98
[2023-11-14 05:49] LABS: Hematocrit 27.6 % (42.0-52.0); Hemoglobin 9.2 g/dl (14.0-18.0); Mean Corpuscular HGB Conc 33.3 g/dl (31.0-36.0); Mean Corpuscular Hemoglobin 27.2 pg (27.0-33.0); Mean Corpuscular Volume 81.7 fL (80.0-98.0); Mean Platelet Volume 10.3 fL (9.4-12.4); Platelet Count 249 X10*3/uL (160-400); Red Blood Count 3.38 X10*6/uL (4.60-5.80); Red Cell Distribution Width 16.3 % (11.0-16.0); White Blood Count 12.8 X10*3/uL (4.8-10.8)
[2023-11-14 06:05] LABS: Anion Gap 18 (12-20); Blood Urea Nitrogen 113 mg/dL (9-16); Calcium 8.2 mg/dL (8.4-10.2); Carbon Dioxide 17 mmol/L (22-29); Chloride 103 mmol/L (96-108); Creatinine Clr Calc Pharmacy 17.1; Estimated Glomerular Filt Rate 14; Glucose Fasting 220 mg/dL (60-99); Potassium 4.6 mmol/L (3.3-5.1); Sodium 133 mmol/L (135-145)
[2023-11-14 07:10] LABS: Glucose, Whole Blood 188 mg/dL (60-115)
--- NOTE | 2023-11-14 07:33 | P.DS_ITS ---
DS: Providers Provider Date of Service: 11/14/23 Date of admission: 11/10/23 20:11 Primary care physician: [facility] Consults: 11/10/23 20:27 Consult to Nephrology Routine Consulting Provider: Jose L Rosario Reason for consultation: DONNA on CKD 11/10/23 22:43 Consult to Wound Care Routine Reason for consultation: chronic forearm pain DS: Diagnosis Discharge Diagnosis (1) Hypoxia: Status: Acute DS: Summary Hospital Course Hospital Course: from initial hpi: 58-year-old male with pertinent history of congestive heart failure with preserved ejection fraction, insulin-dependent type 2 diabetes mellitus with diabetic neuropathy, chronic kidney disease, chronic normocytic anemia, essential hypertension, hyperlipidemia, mood disorder who presents to the emergency department for evaluation of presyncope and falls. Patient states he fell 2 times in the last 1 week including on the day of presentation. He had a sensation that he would lose consciousness and fell. Did not pass out. Also reports progressively increasing shortness of breath, worse with ambulation. Admits orthopnea and leg swelling. States he is compliant with his home p.o. medications including diuretics. Patient is also complaining of nonproductive cough and wheezing. No fever, chills, chest discomfort, palpitations, abdominal pain, changes in urinary or bowel habits. In the emergency department, patient tested positive for RSV and BNP found to be elevated. Imaging with pulmonary edema. Requiring supplemental oxygen in the ER hospital course: Patient was admitted for acute hypoxic respiratory failure secondary to acute on chronic diastolic CHF and RSV. He was treated with IV steroids, DuoNebs, IV Bumex. Patient diuresed well and was eventually weaned off oxygen. His shortne ss of breath significantly improved. He will be discharged on 5 more days of prednisone and placed back on his maintenance Bumex 2 mg b.i.d. for diabetes with hyperglycemia he has continued on basal bolus insulin. Hyperglycemia due to steroids. Patient noted to have acute kidney injury on CKD 4, lisinopril and Aldactone were held. He was seen by Nephrology will follow closely. Did not require hemodialysis. Creatinine remained stable around 4.3 at time of discharge. He should continue to follow-up closely with Nephrology as outpatient. He was continued on oral bicarb for chronic metabolic acidosis. For hypertension he was continued on amlodipine and hydralazine. For hyperlipidemia was continue on statin. For chronic anemia due to kidney disease his hemoglobin remained stable. Patient is feeling much better will be discharged home. Time Attestation Discharge coordination time: Greater than 30 minutes Quality: Safe Use of Opioids Does Pt have an Active Cancer Diagnosis on the Problem List?: No Quality: Stroke Does the patient have a stroke diagnosis?: No Physical Exam Vital Signs: Vital Signs: Last Vital Signs Temp 97.6 F 11/14/23 04:00 Pulse 84 11/14/23 04:00 Resp 19 11/14/23 04:00 BP 157/75 H 11/14/23 04:00 Pulse Ox 98 11/14/23 04:00 O2 Del Method Room Air 11/14/23 04:00 O2 Flow Rate 2 11/12/23 19:22 BMI result Body Mass Index 28.8 General: AO X 3, no acute distress Resp: CTA bilateral, no accessory muscles used CVS: S1,S2,RRR GI: soft, non tender, non distended Neuro: motor grossly intact, alert Psych: appropriate affect, appropriate insight DS: Data Data Completed and Pending Completed studies during hospitalization [Text1]: Procedures Excision of Left Lower Arm Subcutaneous Tissue and Fascia, Open Approach (10/14/23) Excision of Right Kidney, Percutaneous Approach, Diagnostic (01/31/23) Excision of Right Lower Arm Subcutaneous Tissue and Fascia, Open Approach (10/14/23) Transfusion of Nonautologous Red Blood Cells into Peripheral Vein, Percutaneous Approach (10/14/23) Labs on day of discharge: Laboratory Results - last 24 hr 11/13/23 11/13/23 11/13/23 07:46 11:30 16:06 WBC RBC Hgb Hct MCV MCH MCHC RDW Plt Count MPV Absolute Nucleated RBC Nucleated RBC % (auto) Sodium Potassium Chloride Carbon Dioxide Anion Gap BUN Creatinine Estim Creat Clear Calc Estimated GFR POC Glucose 284 H 232 H 282 H Fasting Glucose Calcium 11/13/23 11/14/23 11/14/23 20:33 05:03 07:05 WBC 12.8 H RBC 3.38 L Hgb 9.2 L Hct 27.6 L MCV 81.7 MCH 27.2 MCHC 33.3 RDW 16.3 H Plt Count 249 MPV 10.3 Absolute Nucleated RBC 0.000 Nucleated RBC % (auto) 0.0 Sodium 133 L Potassium 4.6 Chloride 103 Carbon Dioxide 17 L Anion Gap 18 BUN 113 H Creatinine 4.33 H* Estim Creat Clear Calc 17.1 Estimated GFR 14 POC Glucose 306 H 188 H Fasting Glucose 220 H Calcium 8.2 L Discharge Plan Discharge Anticipated Discharge Date/Time: 11/14/23 07:30 Patient Disposition: Home, Self-Care Discharge Diagnosis: chf, donna, rsv Referrals: Center,[facility] [place] [Primary Care Provider] - 1 Week Discharge Medications: New prednisone 20 mg tablet 40 mg PO DAILY Qty: 10 0RF Continued tamsulosin 0.4 mg capsule 0.4 mg PO DAILY diphenhydramine HCl [Benadryl] 25 mg capsule 25 mg PO BEDTIME ferrous sulfate 325 mg (65 mg iron) tablet 325 mg PO DAILY ziprasidone HCl [Geodon] 60 mg capsule 60 mg PO BID bumetanide 2 mg tablet 2 mg PO BID Qty: 60 0RF melatonin 5 mg tablet 5 mg PO BEDTIME PRN (Reason: sleep) Qty: 30 0RF atorvastatin 80 mg tablet 80 mg PO DAILY benztropine 0.5 mg tablet 0.5 mg DAILY trazodone 50 mg tablet 50 - 100 mg PO BEDTIME PRN (Reason: Insomnia) amlodipine 10 mg Tablet 10 mg PO DAILY Qty: 30 1RF Protocol: Hold for SBP< HOLD for SBP < : 90 sodium bicarbonate 650 mg tablet 650 mg PO BID 30 Days Qty: 60 0RF gabapentin 100 mg capsule 100 mg PO BID hydralazine 50 mg tablet 150 mg PO BID Protocol: Hold for SBP< HOLD for SBP < : 90 carvedilol 6.25 mg tablet 6.25 mg PO BID Lantus Solostar U-100 Insulin 100 unit/mL (3 mL) insulin pen 25 unit subcut DAILY insulin lispro [Humalog KwikPen Insulin] 100 unit/mL insulin pen 15 unit subcut TIDAC Discontinued lisinopril 40 mg tablet 40 mg PO DAILY Hold Instructions: Discuss with your systems developer if you need to restart it or not after repeating the blood work. spironolactone 25 mg Tablet 25 mg PO DAILY Qty: 30 1RF Protocol: Hold for SBP< HOLD for SBP < : 90 Discharge Orders: Discharge Order (Routine); Ordered 11/14/23 Ordered By: Solomon Alvarez Diet: Advance to usual diet Activity on Discharge: As tolerated Stand Alone Forms: Patient Portal Discharge page Care Plan Goals: recovery Health Concerns: donna, rsv, chf Plan of Treatment: 5 more days prednisone, close follow up with nephrlology Assessment: see above
[2023-11-14 07:52] VITALS: BP 136/72; PULSE 88; RESP 18; TEMP 36.2; O2SAT 98
[2023-11-14] MEDS: hydrALAZINE HCl 50 MG TABLET 150 MG PO (08:01)
[2023-11-14] MEDS: Ziprasidone 60 MG CAPSULE PO (08:01)
[2023-11-14] MEDS: methylPREDNISolone Sod Succ 40 MG/ML VIAL IVPUSH (08:01)
[2023-11-14] MEDS: Atorvastatin Calcium 80 MG TABLET PO (08:01)
[2023-11-14] MEDS: Ferrous Sulfate 324 MG TABLET.DR PO (08:01)
[2023-11-14] MEDS: Bumetanide 1 MG TABLET 2 MG PO (08:01)
[2023-11-14] MEDS: carvediloL 6.25 MG TABLET PO (08:01)
[2023-11-14] MEDS: Benztropine Mesylate 0.5 MG TABLET PO (08:02)
[2023-11-14] MEDS: Insulin Lispro 100 UNIT/ML 3 ML VIAL SUBCUT ×2 (08:02)
[2023-11-14] MEDS: Insulin Glargine,Hum.rec.anlog 100 UNIT/ML 10 ML VIAL 25 UNIT SUBCUT (08:02)
[2023-11-14] MEDS: Sodium Bicarbonate 650 MG TABLET PO (08:02)
[2023-11-14] MEDS: Tamsulosin HCL 0.4 MG CAPSULE PO (08:02)
[2023-11-14] MEDS: amLODIPine Besylate 10 MG TABLET PO (08:02)
[2023-11-14] MEDS: 0.9 % Sodium Chloride Flush 3 ML SYRINGE IVFLUSH (08:03)
--- NOTE | 2023-11-14 08:44 | MHC.CM.PN ---
IMM 11/14/23 Patient is discharged to home with his sisters assist and resumption of [employer] services. He has arranged for his son to provide transportation home.
== END 2023-11-14 09:29 | disposition home or self-care (01) | DRG 291 ==
LOC: HO.ED 19:02 → HO.EDOVER 20:18 → HO.S3 21:08
PROVIDERS: Physician Assistant; Admitting Provider Student in an Organized Health Care Education/Training Program; Emergency Provider Internal Medicine; PCP Internal Medicine; Visit Provider Internal Medicine
DX: I13.0 Hypertensive heart and chronic kidney disease with heart failure and stage 1 through stage 4 chronic kidney disease, or unspecified chronic kidney disease (principal); I50.33 Acute on chronic diastolic (congestive) heart failure; J96.01 Acute respiratory failure with hypoxia; E87.22 Chronic metabolic acidosis; N18.4 Chronic kidney disease, stage 4 (severe); N25.81 Secondary hyperparathyroidism of renal origin; E87.1 Hypo-osmolality and hyponatremia; N17.9 Acute kidney failure, unspecified; E78.2 Mixed hyperlipidemia; F39 Unspecified mood [affective] disorder; E11.40 Type 2 diabetes mellitus with diabetic neuropathy, unspecified; B97.4 Respiratory syncytial virus as the cause of diseases classified elsewhere; E11.22 Type 2 diabetes mellitus with diabetic chronic kidney disease; D63.1 Anemia in chronic kidney disease; Z79.4 Long term (current) use of insulin; Z79.899 Other long term (current) drug therapy
CPT/HCPCS: 0241U; 36415; 71045; 78580; 80048; 80076; 80307; 81001; 81003; 82803; 82947; 83540; 83735; 83880; 84484; 85025; 85027; 85379; 85610; 87086; 93005; 93306; 94640; 97161; 99285; A9540; J1650; J2920; Q5106; Q9957

== ENCOUNTER → 2023-11-10 17:11 | Outpatient (BNV) | payer OTHER, SELFPAY | PROVIDERS: Admitting Provider Student in an Organized Health Care Education/Training Program; Emergency Provider Internal Medicine; Visit Provider Internal Medicine Cardiovascular Disease | DX: R06.02 Shortness of breath (principal) | CPT/HCPCS: 93010 ==

== ENCOUNTER 2023-11-10 20:11 | Outpatient (BNV) | payer OTHER, SELFPAY | END 2023-11-11 07:00 | PROVIDERS: Admitting Provider Student in an Organized Health Care Education/Training Program; Emergency Provider Internal Medicine; Visit Provider Internal Medicine Cardiovascular Disease | DX: I50.30 Unspecified diastolic (congestive) heart failure (principal) | CPT/HCPCS: 93306 ==

== ENCOUNTER → 2023-11-10 20:11 | Outpatient (BNV) | payer OTHER, SELFPAY | PROVIDERS: Admitting Provider Student in an Organized Health Care Education/Training Program; Emergency Provider Internal Medicine; Visit Provider Internal Medicine Hypertension Specialist | DX: N17.9 Acute kidney failure, unspecified (principal); N18.4 Chronic kidney disease, stage 4 (severe); I50.9 Heart failure, unspecified; N25.81 Secondary hyperparathyroidism of renal origin; I13.0 Hypertensive heart and chronic kidney disease with heart failure and stage 1 through stage 4 chronic kidney disease, or unspecified chronic kidney disease; E87.1 Hypo-osmolality and hyponatremia; E87.21 Acute metabolic acidosis; E11.40 Type 2 diabetes mellitus with diabetic neuropathy, unspecified; D63.1 Anemia in chronic kidney disease; E11.22 Type 2 diabetes mellitus with diabetic chronic kidney disease | CPT/HCPCS: 99223; 99499 ==

== ENCOUNTER → 2023-11-10 20:11 | Outpatient (BNV) | payer OTHER, SELFPAY | PROVIDERS: Admitting Provider Student in an Organized Health Care Education/Training Program; Emergency Provider Internal Medicine; Visit Provider Student in an Organized Health Care Education/Training Program | DX: J96.01 Acute respiratory failure with hypoxia (principal); J20.5 Acute bronchitis due to respiratory syncytial virus; I50.23 Acute on chronic systolic (congestive) heart failure | CPT/HCPCS: 99223; 99233; 99239 ==

== ENCOUNTER 2023-11-22 12:26 | Outpatient (REF) | payer OTHER, SELFPAY ==
[2023-11-22 13:49] LABS: B Type Natriuretic Peptide 205 pg/mL (<100)
[2023-11-22 14:20] LABS: Anion Gap 17 (12-20); Blood Urea Nitrogen 96 mg/dL (9-16); Calcium 7.8 mg/dL (8.4-10.2); Carbon Dioxide 21 mmol/L (22-29); Chloride 97 mmol/L (96-108); Estimated Glomerular Filt Rate 18; Glucose Random 590 mg/dL (60-115); Potassium 4.8 mmol/L (3.3-5.1); Sodium 130 mmol/L (135-145)
== END 2023-11-22 12:27 | disposition home or self-care (01) ==
LOC: HO.LAB 12:26
PROVIDERS: Internal Medicine Cardiovascular Disease; PCP Internal Medicine; Visit Provider Family Medicine
DX: I50.30 Unspecified diastolic (congestive) heart failure (principal)
CPT/HCPCS: 36415; 80048; 83880

== ENCOUNTER 2023-11-22 13:56 | Outpatient (REF) | payer OTHER, SELFPAY ==
[2023-11-22 16:47] LABS: Alanine Aminotransferase 27 U/L (0-40); Albumin Level 2.8 g/dL (3.5-5.0); Alkaline Phosphatase 111 U/L (39-117); Anion Gap 18 (12-20); Aspartate Amino Transferase 19 U/L (5-37); Bilirubin Direct 0.1 mg/dL (0.0-0.5); Bilirubin Total 0.3 mg/dL (0.0-1.0); Blood Urea Nitrogen 97 mg/dL (9-16); Carbon Dioxide 20 mmol/L (22-29); Chloride 96 mmol/L (96-108); Estimated Glomerular Filt Rate 17; Glucose Random 727 mg/dL (60-115); Potassium 4.8 mmol/L (3.3-5.1); Sodium 129 mmol/L (135-145); Total Protein 6.4 g/dL (6.5-8.0)
[2023-11-25 13:28] LABS: HCV Log PCR <1.18 NOT DETECTED Log IU/mL (NOT DETECTED); HepC Viral Load <15 NOT DETECTED IU/mL (NOT DETECTED)
== END 2023-11-22 13:57 | disposition home or self-care (01) ==
LOC: HO.HHCL 13:56
PROVIDERS: Referring Provider Family Medicine; Visit Provider Internal Medicine
DX: N17.9 Acute kidney failure, unspecified (principal); N18.9 Chronic kidney disease, unspecified; B18.2 Chronic viral hepatitis C
CPT/HCPCS: 36415; 80053; 80076; 82248; 87522

== ENCOUNTER 2023-11-25 11:48 | Outpatient (AMB) | payer OTHER, SELFPAY ==
--- NOTE | 2023-11-25 12:29 | MHC.OFFVIS ---
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 Patient reports a fall from a tall kitchen chair about 1 month ago. Currently he complains of pain on lateral aspect of the hip. He takes ibuprofen for his pain which helps mildly. 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 Pain is over ASIS. Ongoing for 2 months. [facility] Medical History Anemia Congestive heart failure Nephrotic syndrome Diastolic heart failure Anemia Pneumonia Diabetic nephropathy Anemia Chronic pain syndrome Diabetic polyneuropathy Vitamin D deficiency Depression HTN (hypertension) HLD (hyperlipidemia) T2DM (type 2 diabetes mellitus) Surgical History Status post biopsy of kidney Hx of colonoscopy Hx of rotator cuff surgery Family History Father Colon cancer Mother History of kidney problems T2DM (type 2 diabetes mellitus) Sister T2DM (type 2 diabetes mellitus) Social History Household Members: None Housing: Apartment Do you presently have visiting nurse or other home services: No ([facility] service 13/06) Alcohol intake: former Comment: allowed to walk in room Patient Tobacco Use Status: Never used Tobacco Substance Use Type: Crack/Cocaine Advance Directives Date on File: 04/28/23 service: No Current occupational status: disabled Current occupation: right handed Physical Exam Vital Signs: BMI result Body Mass Index 26.9 Extrem Other: full ROM left hip No groin pain no tenderness over greater troch difficult to reproduce pain Results Reviewed Results Reviewed: I personally reviewed relevant radiographs. No obvious radiographic abnormalities ? left ASIS avulsion on CT Assessment & Plan Assessment & Plan (1) Contusion of left hip: Code(s): S70.02XA - Contusion of left hip, initial encounter Plan: PT for strengthening and ROM Orders: Orders PT Evaluation and Treatment 11/25/23 S70.02XA - Contusion of left hip, initial encounter Coding Level of Care Code New Pt Level 3 (61637) Diagnoses Contusion of left hip S70.02XA
[2023-11-25 12:41] VITALS: BMI 26.9
== END 2023-11-25 13:41 | disposition home or self-care (01) ==
PROVIDERS: Visit Provider Orthopaedic Surgery
DX: S70.02XA Contusion of left hip, initial encounter (principal); W07.XXXA Fall from chair, initial encounter
CPT/HCPCS: 99203

== ENCOUNTER → 2023-11-25 11:48 | Outpatient (BNVA) | payer OTHER, SELFPAY | PROVIDERS: Visit Provider Orthopaedic Surgery | DX: S70.02XA Contusion of left hip, initial encounter (principal) | CPT/HCPCS: 99202 ==

== ENCOUNTER 2023-12-06 11:13 | Outpatient (REF) | payer OTHER, SELFPAY ==
[2023-12-06 13:04] LABS: Anion Gap 16 (12-20); Blood Urea Nitrogen 66 mg/dL (9-16); Calcium 8.8 mg/dL (8.4-10.2); Carbon Dioxide 18 mmol/L (22-29); Chloride 104 mmol/L (96-108); Estimated Glomerular Filt Rate 16; Glucose Random 211 mg/dL (60-115); Potassium 4.4 mmol/L (3.3-5.1); Sodium 134 mmol/L (135-145)
[2023-12-09 09:08] LABS: Iron 44 mcg/dL (45-160); Percent Iron Saturation 22 % (15-50); Total Iron Binding Capacity 196 mcg/dL (228-428); Unsaturated Iron Binding 152 ug/dL
[2023-12-09 09:22] LABS: Ferritin 223 ng/mL (20-250)
== END 2023-12-06 11:14 | disposition home or self-care (01) ==
LOC: HO.LAB 11:13
PROVIDERS: Visit Provider Student in an Organized Health Care Education/Training Program
DX: N17.9 Acute kidney failure, unspecified (principal); E11.22 Type 2 diabetes mellitus with diabetic chronic kidney disease; D63.1 Anemia in chronic kidney disease; N18.31 Chronic kidney disease, stage 3a
CPT/HCPCS: 36415; 80048; 82728; 83540

== ENCOUNTER 2023-12-09 10:29 | Outpatient (REF) | payer OTHER, SELFPAY ==
[2023-12-09 10:43] LABS: MANUAL DIFF FLAG NO
[2023-12-09 11:13] LABS: Basophils Absolute Auto 0.1 X10*3/uL (0.0-0.2); Basophils Percent Auto 0.7 % (0-2); Eosinophils Absolute Auto 0.3 X10*3/uL (0.0-0.4); Eosinophils Percent Auto 4.5 % (0-4); Hematocrit 29.6 % (42.0-52.0); Hemoglobin 9.9 g/dl (14.0-18.0); Imm Gran Abs Auto 0.03 X10*3/uL (0.00-0.03); Imm Gran Pct Auto 0.4 % (0.0-0.4); Lymphocytes Absolute Auto 1.4 X10*3/uL (1.2-4.9); Lymphocytes Percent Auto 18.8 % (20-40); Mean Corpuscular HGB Conc 33.4 g/dl (31.0-36.0); Mean Corpuscular Hemoglobin 27.6 pg (27.0-33.0); Mean Corpuscular Volume 82.5 fL (80.0-98.0); Mean Platelet Volume 9.8 fL (9.4-12.4); Monocytes Absolute Auto 0.6 X10*3/uL (0.1-1.2); Monocytes Percent Auto 7.5 % (2-11); Neutrophils Absolute Auto 5.1 x10*3/uL (2.0-8.3); Neutrophils Percent Auto 68.1 % (45-73); Platelet Count 297 X10*3/uL (160-400); Red Blood Count 3.59 X10*6/uL (4.60-5.80); Red Cell Distribution Width 16.4 % (11.0-16.0); White Blood Count 7.5 X10*3/uL (4.8-10.8)
[2023-12-09 13:21] LABS: Ferritin 209 ng/mL (20-250)
[2023-12-09 13:23] LABS: Iron 48 mcg/dL (45-160); Percent Iron Saturation 25 % (15-50); Total Iron Binding Capacity 191 mcg/dL (228-428); Unsaturated Iron Binding 143 ug/dL
== END 2023-12-09 10:30 | disposition home or self-care (01) ==
LOC: HO.LAB 10:29
PROVIDERS: PCP Internal Medicine; Visit Provider Internal Medicine Nephrology
DX: E11.22 Type 2 diabetes mellitus with diabetic chronic kidney disease (principal); N18.31 Chronic kidney disease, stage 3a; D63.1 Anemia in chronic kidney disease
CPT/HCPCS: 36415; 82728; 83540; 85025

== ENCOUNTER 2023-12-23 15:23 | Outpatient (REF) | payer OTHER, SELFPAY ==
[2023-12-23 15:33] LABS: MANUAL DIFF FLAG NO
[2023-12-23 15:54] LABS: Basophils Absolute Auto 0.1 X10*3/uL (0.0-0.2); Basophils Percent Auto 0.5 % (0-2); Eosinophils Absolute Auto 0.2 X10*3/uL (0.0-0.4); Eosinophils Percent Auto 2.3 % (0-4); Hematocrit 28.9 % (42.0-52.0); Imm Gran Abs Auto 0.02 X10*3/uL (0.00-0.03); Imm Gran Pct Auto 0.2 % (0.0-0.4); Lymphocytes Absolute Auto 1.8 X10*3/uL (1.2-4.9); Lymphocytes Percent Auto 19.1 % (20-40); Mean Corpuscular HGB Conc 34.6 g/dl (31.0-36.0); Mean Corpuscular Hemoglobin 28.3 pg (27.0-33.0); Mean Corpuscular Volume 81.9 fL (80.0-98.0); Mean Platelet Volume 9.2 fL (9.4-12.4); Monocytes Absolute Auto 0.6 X10*3/uL (0.1-1.2); Monocytes Percent Auto 6.6 % (2-11); Neutrophils Absolute Auto 6.9 x10*3/uL (2.0-8.3); Neutrophils Percent Auto 71.3 % (45-73); Platelet Count 248 X10*3/uL (160-400); Red Blood Count 3.53 X10*6/uL (4.60-5.80); Red Cell Distribution Width 17.5 % (11.0-16.0); White Blood Count 9.6 X10*3/uL (4.8-10.8)
== END 2023-12-23 15:24 | disposition home or self-care (01) ==
LOC: HO.LAB 15:23
PROVIDERS: PCP Internal Medicine; Visit Provider Nurse Practitioner
DX: D64.9 Anemia, unspecified (principal)
CPT/HCPCS: 36415; 85025

== ENCOUNTER → 2023-12-30 10:03 | Outpatient (REF) | payer OTHER, SELFPAY ==
--- NOTE | ~2023-12-30 | NM_ITS ---
Myocardial perfusion study Indication: Heart failure with preserved ejection fraction to evaluate for myocardial ischemia Technique: The patient was brought in for a Lexiscan perfusion study on 12/30/2023. Patient performed low-level exercise and was injected 0.4 mg of Lexiscan intravenously. Within a minute of injection, 25 mCi of sestamibi was given intravenously. Images were obtained using the SPECT gamma camera interlaced with the gating device. Images were obtained in supine position. Resting perfusion study was performed on 01/02/2024. Patient was administered 25 mCi of sestamibi intravenously at rest. Images were then obtained in supine position. Images obtained with and without CT attenuation. Total DLP 77 mGy-cm. Images were processed with the software and compared side to side in short axis, horizontal long axis and vertical long axis views. Findings: The stress perfusion study showed non attenuated images show minimal thinning of the basal inferior wall of the LV myocardium. Remainder of the LV myocardium is normally perfused. Attenuation corrected images show normal uptake of radiotracer in all segments of LV myocardium.. The gated study shows normal LV systolic function with calculated LVEF of 73%. LV cavity is normal in size. The gated study shows normal systolic wall thickening and contraction of segments. Resting study shows no change in perfusion pattern compared to stress perfusion study. Gating at rest reveals normal systolic wall motion with ejection fraction at 59%. The findings are consistent with normal myocardial perfusion. NM/NM nedra perf SPECT rest & str Impression: 1. Myocardial perfusion imaging study shows normal myocardial perfusion 2. Gated LVEF is 73% 3. Transient ischemic dilatation not present EKG is nondiagnostic for ischemia
--- NOTE | 2023-12-30 10:06 | CA_ITS ---
Acquisition Time: 2023-12-30 10:09:01 Total Exercise Time: 00:02:00 Test Indications: syncope, chf Medications: see h Protocol: LEXISCAN Max HR: 113 BPM 68% of Pred: 164 BPM Max BP: 118/070 mmHG Max Work Load: 1.0 METS Pharmacological stress test with Lexiscan injection while sitting and marching in place, without anginal symptoms, without arrhythmias, with normotensive response to injection, with nondiagnoisitic EKGs. Aminophylline 75mg IVP given to reverse Lexicsan. Nuclear images pending. Test reviewed with Dr Galvan, Referred By: Aston Jason Overread By: Alee Lorenzana
== END ==
LOC: HO.CARD 10:03
PROVIDERS: PCP Internal Medicine; Visit Provider Internal Medicine Cardiovascular Disease
DX: I50.30 Unspecified diastolic (congestive) heart failure (principal)
CPT/HCPCS: 78452; 93017; A9500; J0280; J2785

== ENCOUNTER → 2023-12-30 10:06 | Outpatient (BNV) | payer OTHER, SELFPAY | PROVIDERS: PCP Internal Medicine; Visit Provider Nurse Practitioner | DX: I50.30 Unspecified diastolic (congestive) heart failure (principal) | CPT/HCPCS: 78452; 93016; 93018 ==

== ENCOUNTER 2024-01-30 12:00 | Outpatient (REF) | payer OTHER, SELFPAY ==
[2024-01-30 12:28] LABS: MANUAL DIFF FLAG NO
[2024-01-30 13:33] LABS: Basophils Absolute Auto 0.1 X10*3/uL (0.0-0.2); Basophils Percent Auto 0.8 % (0-2); Eosinophils Absolute Auto 0.3 X10*3/uL (0.0-0.4); Eosinophils Percent Auto 3.6 % (0-4); Hematocrit 26.3 % (42.0-52.0); Imm Gran Abs Auto 0.03 X10*3/uL (0.00-0.03); Imm Gran Pct Auto 0.3 % (0.0-0.4); Lymphocytes Absolute Auto 2.4 X10*3/uL (1.2-4.9); Lymphocytes Percent Auto 27.8 % (20-40); Mean Corpuscular HGB Conc 34.2 g/dl (31.0-36.0); Mean Corpuscular Hemoglobin 28.9 pg (27.0-33.0); Mean Corpuscular Volume 84.6 fL (80.0-98.0); Mean Platelet Volume 9.8 fL (9.4-12.4); Monocytes Absolute Auto 0.7 X10*3/uL (0.1-1.2); Monocytes Percent Auto 7.5 % (2-11); Neutrophils Absolute Auto 5.2 x10*3/uL (2.0-8.3); Platelet Count 368 X10*3/uL (160-400); Red Blood Count 3.11 X10*6/uL (4.60-5.80); Red Cell Distribution Width 13.5 % (11.0-16.0); White Blood Count 8.7 X10*3/uL (4.8-10.8)
[2024-01-30 14:23] LABS: Anion Gap 13 (12-20); Blood Urea Nitrogen 47 mg/dL (9-16); Calcium 8.9 mg/dL (8.4-10.2); Carbon Dioxide 24 mmol/L (22-29); Chloride 104 mmol/L (96-108); Estimated Glomerular Filt Rate 18; Glucose Random 196 mg/dL (60-115); Potassium 3.5 mmol/L (3.3-5.1); Sodium 137 mmol/L (135-145)
== END 2024-01-30 12:01 | disposition home or self-care (01) ==
LOC: HO.LAB 12:00
PROVIDERS: PCP Internal Medicine; Visit Provider Internal Medicine Hypertension Specialist
DX: N18.30 Chronic kidney disease, stage 3 unspecified (principal)
CPT/HCPCS: 36415; 80048; 85025

== ENCOUNTER 2024-02-01 15:24 | Emergency (ER) | payer OTHER, SELFPAY ==
--- NOTE | ~2024-02-01 | XR_ITS ---
EXAMINATION: Right lower leg and ankle x-ray CLINICAL INFORMATION: Fall COMPARISON: None. TECHNIQUE: 2 views of the right ankle and 2 views of the right lower leg FINDINGS: Right lower leg: There is an oblique minimally displaced fracture of the distal shaft of tibia. The distal tibia is displaced laterally and posteriorly with respect to the proximal shaft by 4 mm. No other fracture seen. Mild degenerative changes at the patellofemoral joint and small knee joint effusion. Atherosclerotic disease. Right ankle: No ankle fracture seen. Normal ankle mortise small calcaneal spurs. Soft tissue arterial calcification. XR/XR ankle RT min 3V IMPRESSION: Right distal tibial shaft fracture.
--- NOTE | ~2024-02-01 | CT_ITS ---
EXAM: CT HEAD WITHOUT CONTRAST CT CERVICAL SPINE INDICATION: Reason for Exam fall TECHNIQUE: A noncontrast CT scan was performed from the skull base to the vertex. A noncontrast CT scan of the cervical spine was performed from the base of the skull through T1 at 2.5 mm and 0.625 mm collimation. Coronal and sagittal reformats were obtained at the acquisition workstation. This CT examination was performed using dose optimization techniques as appropriate, variously including the following: * Automated exposure control * Adjustment of mA and/or kV according to patient size (this includes techniques or standardized protocols for targeted exams where dose is matched to indication/reason for exam; i.e. extremities or head) * Use of iterative reconstruction technique Dose length product is 1027 mGy-cm. COMPARISON: None FINDINGS: Head: There is no evidence of acute intracranial hemorrhage or territorial infarction. No abnormal mass effect or midline shift is seen. [place] to white matter differentiation is well preserved. No abnormal extra-axial fluid collections are identified. The ventricles are normal in size. No abnormal attenuation in the brain parenchyma. No acute calvarial fracture.. Paranasal sinuses and mastoid air cells are well-aerated. Cervical Spine: The atlantooccipital and atlantoaxial articulations remain well aligned. Straightening of the normal cervical lordosis. Otherwise, there is anatomic alignment of the vertebral bodies and posterior elements. No evidence of acute fracture or subluxation. Vertebral body heights are maintained. The disc spaces are preserved. Chronic curvilinear ossification/ossification along the anterior aspect of the C4-C5 disc space. Chronic ossifications in the posterior soft tissues of neck. The central canal is maintained. No prevertebral soft tissue swelling. The paraspinal soft tissues are unremarkable. No suspicious start findings. The visualized lung apices are clear. CT/CT cervical spine wo IV con IMPRESSION: No CT evidence of acute intracranial hemorrhage or edematous territorial infarction. No CT evidence of acute cervical spine fracture or traumatic subluxation.
--- NOTE | ~2024-02-01 | XR_ITS ---
EXAMINATION: Right lower leg and ankle x-ray CLINICAL INFORMATION: Fall COMPARISON: None. TECHNIQUE: 2 views of the right ankle and 2 views of the right lower leg FINDINGS: Right lower leg: There is an oblique minimally displaced fracture of the distal shaft of tibia. The distal tibia is displaced laterally and posteriorly with respect to the proximal shaft by 4 mm. No other fracture seen. Mild degenerative changes at the patellofemoral joint and small knee joint effusion. Atherosclerotic disease. Right ankle: No ankle fracture seen. Normal ankle mortise small calcaneal spurs. Soft tissue arterial calcification. XR/XR tibia fibula RT 2V IMPRESSION: Right distal tibial shaft fracture.
--- NOTE | ~2024-02-01 | XR_ITS ---
EXAMINATION: XR KNEE, LEFT CLINICAL INFORMATION: Fall COMPARISON: Previous x-ray January 2021 TECHNIQUE: Two views of the left knee. FINDINGS: There is question of a nondisplaced fracture of the patella seen on the AP. This is not appreciated on the lateral view. No other fracture. Joint spaces are normal. Moderate to large joint effusion. Atherosclerotic disease. XR/XR knee LT 2V IMPRESSION: Question nondisplaced patella fracture.
--- NOTE | ~2024-02-01 | CT_ITS ---
EXAMINATION: CT KNEE WITHOUT CONTRAST, LEFT CLINICAL INFORMATION: Question patellar fracture. COMPARISON: Left knee radiographs done earlier the same day. TECHNIQUE: Contiguous axial CT images of the left knee were obtained without contrast. Multiplanar reformats were provided and reviewed. This CT examination was performed using dose optimization techniques as appropriate, variously including the following: *Automated exposure control. *Adjustment of mA and/or kV according to patient size (this includes techniques or standardized protocols for targeted exams where dose is matched to indication/reason for exam; i.e. extremities or head). *Use of iterative reconstruction technique. DLP: 135 mGy-cm FINDINGS: No acute fracture or dislocation. Normal patellofemoral alignment. Corticated ossification at the superolateral aspect of the patella consistent with a bipartite patella. Moderate associated degenerative change. No significant joint space narrowing or marginal osteophytes. No concerning lytic or blastic osseous lesion. No evidence of avascular necrosis. Moderate knee joint effusion. Evaluation of the intra-articular ligaments and menisci severely limited on CT examination. The visualized muscles and tendons are grossly intact; however, evaluation is limited on CT examination. Prominent atherosclerotic calcifications. CT/CT knee LT wo IV con IMPRESSION: 1. No acute fracture or dislocation. No evidence of avascular necrosis. 2. 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 3. Moderate knee joint effusion.
--- NOTE | ~2024-02-01 | US_ITS ---
EXAMINATION: US VENOUS ULTRASOUND WITH DOPPLER LOWER EXTREMITY, RIGHT CLINICAL INFORMATION: Lower extremity pain and swelling COMPARISON: None available. TECHNIQUE: Ultrasound of the deep veins is performed from the hip to the calf with compression sonography and color and pulse Doppler assessment. Spectral analysis with color-flow imaging is performed. FINDINGS: There is normal venous compression and respiratory variation and augmented flow. The visualized common femoral vein, superficial femoral vein, profunda femoral vein, popliteal vein, and the trifurcation region shows no evidence of deep venous thrombosis. There is no significant popliteal fossa cyst. Contralateral left common femoral vein appears normal. If the patient's symptoms persist, followup ultrasound in 5 days 7 days might be of value to exclude proximal propagation from a non-visualized calf vein. US/US venous duplex LE RT IMPRESSION: No DVT demonstrated in the right lower extremity.
[2024-02-01 15:31] VITALS: BP 110/70; BP 144/79; PULSE 87; PULSE 95; RESP 18; TEMP 36.5; O2SAT 97; BMI 22.9
--- NOTE | 2024-02-01 16:37 | ECG_ITS ---
Test Reason : SYNCOPE Blood Pressure : / mmHG Vent. Rate : 081 BPM Atrial Rate : 081 BPM P-R Int : 146 ms QRS Dur : 086 ms QT Int : 414 ms P-R-T Axes : 043 021 045 degrees QTc Int : 480 ms Normal sinus rhythm Prolonged QT Abnormal ECG When compared with ECG of 10-NOV-2023 17:25, No significant change was found Referred By: Pepe Azar Electronically Signed By:ROOSEVELT HENDRICKS MD
--- NOTE | 2024-02-01 17:12 | ED_ITS ---
HPI - General Adult General Chief complaint: Syncope Stated complaint: syncope episode 20 mins ago,unwit fall Time Seen by Provider: 02/01/24 16:08 Source: patient, RN notes reviewed, old records reviewed and interpreter and translator Mode of arrival: EMS Limitations: language barrier History of Present Illness HPI narrative: 58-year-old male with past medical history significant for Parkinson's dementia, heart failure with preserved ejection fraction, chronic kidney disease, hyperlipidemia, osteoarthritis presents for evaluation of multiple falls. Per the patient's family, the patient has had increasing weakness for the last 3 days He his at baseline able to stand and pivot However over last few days he has had significant shaking has been unable to stand He fell twice yesterday and once today injuring his right leg and left knee He also reports hitting his head when he fell today He had some neck pain earlier but currently denies any neck pain and denies any headaches Per family the patient did have a loss of consciousness today He denies any dizziness, chest pain shortness of breath, abdominal pain, nausea vomiting Related Data Home Medications Medication Instructions Recorded Confirmed insulin glargine 100 unit/mL (3 25 unit subcut DAILY 12/22/20 11/10/23 mL) subcutaneous pen (Lantus Solostar U-100 Insulin) insulin lispro 100 unit/mL 15 unit subcut TIDAC 12/22/20 11/10/23 subcutaneous pen (Humalog KwikPen (U-100) Insulin) diphenhydramine HCl 25 mg capsule 25 mg PO BEDTIME 04/18/23 11/10/23 (Benadryl) tamsulosin 0.4 mg capsule 0.4 mg PO DAILY 04/18/23 11/10/23 ziprasidone HCl 60 mg capsule 60 mg PO BID 04/18/23 11/10/23 (Geodon) atorvastatin 80 mg tablet 80 mg PO DAILY 05/23/23 11/10/23 benztropine 0.5 mg tablet 0.5 mg DAILY 10/14/23 11/10/23 trazodone 50 mg tablet 50 - 100 mg PO BEDTIME PRN Insomnia 10/14/23 11/10/23 gabapentin 100 mg capsule 100 mg PO BID 11/10/23 11/10/23 hydralazine 50 mg tablet 150 mg PO BID 11/10/23 11/10/23 carvedilol 6.25 mg tablet 6.25 mg PO BID 11/11/23 11/11/23 Previous Rx's Medication Instructions Recorded bumetanide 2 mg tablet 2 mg PO BID #60 tabs 04/27/23 melatonin 5 mg tablet 5 mg PO BEDTIME PRN sleep #30 tabs 04/27/23 amlodipine 10 mg tablet 10 mg PO DAILY #30 tabs 10/21/23 sodium bicarbonate 650 mg tablet 650 mg PO BID 30 days #60 tabs 10/28/23 prednisone 20 mg tablet 40 mg (2 x 20 mg) PO DAILY #10 tabs 11/14/23 ferrous sulfate 325 mg (65 mg 325 mg PO DAILY #90 tabs 01/23/24 iron) tablet morphine 15 mg immediate release 7.5 mg (1/2 x 15 mg) PO BID PRN 02/01/24 tablet pain #12 tabs Allergies Allergy/AdvReac Type Severity Reaction Status Date / Time No Known Allergies Allergy Verified 11/25/23 12:42 [No Known Allergies*] Review of Systems 2 Constitutional: Constitutional: Denies chills, Denies fever(s), Reports frequent falls, Denies headache(s) and Reports weakness Eyes: Eyes: Denies blurry vision ENT: Denies headache(s) Cardiovascular: Cardiovascular: Denies chest pain, Reports syncope and Denies dyspnea Respiratory: Respiratory: Denies cough and Denies dyspnea Gastrointestinal: Gastrointestinal: Denies abdominal pain, Denies nausea and Denies vomiting Musculoskeletal: Musculoskeletal: Reports abnormal gait and Denies back pain Integumentary/Breasts: Skin/Breast: Denies rash Neurologic: Reports Neuro-related abnormal movements (However these are baseline per family and the patient), Denies Abnormal speech present, Reports abnormal gait, Denies confusion, Reports syncope, Reports frequent falls, Denies headache(s) and Reports weakness Psychiatric: Psychiatric: Denies confusion [facility] Past Medical History Medical History Anemia Congestive heart failure Nephrotic syndrome Diastolic heart failure Anemia Pneumonia Diabetic nephropathy Anemia Chronic pain syndrome Diabetic polyneuropathy Vitamin D deficiency Depression HTN (hypertension) HLD (hyperlipidemia) T2DM (type 2 diabetes mellitus) Surgical History Status post biopsy of kidney Hx of colonoscopy Hx of rotator cuff surgery Family History Family History Father Colon cancer Mother History of kidney problems T2DM (type 2 diabetes mellitus) Sister T2DM (type 2 diabetes mellitus) Social History Social History Household Members: None Housing: Apartment Do you presently have visiting nurse or other home services: No ([employer] service 13/06) Alcohol intake: former Comment: allowed to walk in room Patient Tobacco Use Status: Never used Tobacco Smoked in Last 30 Days: No Use of substances other than those prescribed or required for medical reasons: No Substance Use Type: Crack/Cocaine Advance Directives: Yes Advance Directives on File: Yes Advance Directives Date on File: 04/28/23 service: No Current occupational status: disabled Current occupation: right handed Physical Exam ED Vital Signs: Vital Signs - 24 hr 02/01/24 15:31 02/01/24 20:28 Temperature 97.7 F Pulse Rate 87 87 Respiratory Rate 18 Blood Pressure 144/79 H 157/84 H Pulse Oximetry 97 98 Oxygen Delivery Method Room Air Room Air BMI result Body Mass Index 22.9 Const General: No confusion Nutritional Appearance: well nourished Orientation/consciousness: patient oriented x3 and No confusion HENMT Head: Yes normocephalic and Yes atraumatic Eyes Eyelids: Yes eyelids normal Conjunctivae: conjunctivae normal Sclerae: sclerae normal Corneas: corneas normal Pupils: Equal, round and reactive pupils present EOM: EOMs intact bilaterally Neck Neck: Yes full ROM Resp Effort & Inspection: normal respiratory effort, able to speak in complete sentences, no audible wheezes and not labored Auscultation: clear to auscultation bilaterally Cardio Rate: regular rate Rhythm: regular rhythm GI Inspection: No distended Palpation (GI): Soft to palpation, not firm, nontender, no guarding and not rigid Skin General skin exam: no rashes or lesions noted and elasticity normal Neuro General: patient oriented x3, No confusion and Unable to assess gait Cranial nerves: Yes CN's II-XII intact bilaterally, Yes Equal, round and reactive pupils present and Yes Bilaterally intact EOM present Cognition (Neuro): normal cognition Speech: No Abnormal speech present Gait exam (Neuro): Unable to assess gait Motor exam (neuro): Tremors during motor activity present (Left lower extremity) and Motor abnormalites present (Abnormal draw movements) tics Extrem Other: Patient has right lower extremity edema, tenderness from the mid tibia down to the ankle. There is no right knee tenderness. The patient has reduced range of motion to right lower extremity at the ankle Course Reevaluation(s) Reevaluation #1: Patient's lab results are consistent with his baseline, no acute changes. His vital signs remained stable. He has a right tibia fracture. There was a question of a left nondisplaced patellar fracture which was ruled out on CT scan. I had a lengthy discussion with the patient using a paraprofessional interpreter and recommended short-term rehab as the patient is unsteady on his feet at baseline and is now unable to bear weight in his right lower extremity is unable to use crutches. The patient adamantly refuses going to short-term rehab like to be discharged home. The patient's family is comfortable taking him home at this time. Time: 20:54 Medications Administered Discontinued Medications Generic Name Dose Route Start Last Admin Trade Name Sofie PRN Reason Stop Dose Admin Oxycodone HCl 5 mg 02/01/24 16:37 02/01/24 17:26 Oxycodone Hcl Immed Release 5 Mg Tablet PO 02/01/24 16:38 5 mg ONCE ONE Administration Procedures Orthopedic Splinting/Casting Injury #1: Side: right Lower Extremity Injury Location: lower leg Lower Extremity Immobilizer: stirrup splint Medical Decision Making Medical Decision Making [facility] Narrative: 58-year-old male with history as documented above including parkinsonism presents for evaluation for multiple falls and reported syncopal episode. Plan for syncope workup as well as CT brain and head given the reported head strike. X-rays of the right lower extremity and left knee were ordered. Given the edema on exam will also get an ultrasound to rule out DVT. Differential Diagnosis Differential Diagnoses: The differential diagnosis associated with the presentation includes Syncope Failure to thrive Worsening parkinsonism Ankle fracture Leg fracture DVT Intracranial hemorrhage Admission/Observation Consideration of admission/observation: Escalation of care including admission/observation considered Consider admission for syncope with anemia/chronic kidney disease but both these appear related to his baseline. Lab Data [facility] Lab Attestation statement: I reviewed the patient's lab results. Mild leukocytosis to 11.7 K. The patient has anemia with a hemoglobin 8.8 and hematocrit 25.4. The patient's baseline is right around 9 so this is consistent with his baseline. Likely related to his chronic kidney disease. Patient's creatinine is elevated to 3.54 which again is approximately his baseline. His glucose is elevated to 18 with no significant signs of DKA. Electrolytes within normal limits. Troponin is negative at 0.5 02/01/24 17:58 02/01/24 17:58 Labs: Lab Results 02/01/24 Range/Units 17:58 WBC 11.7 H (4.8-10.8) X10*3/uL RBC 3.04 L (4.60-5.80) X10*6/uL Hgb 8.8 L (14.0-18.0) g/dl Hct 25.4 L (42.0-52.0) % MCV 83.6 (80.0-98.0) fL MCH 28.9 (27.0-33.0) pg MCHC 34.6 (31.0-36.0) g/dl RDW 13.7 (11.0-16.0) % Plt Count 330 (160-400) X10*3/uL MPV 9.2 L (9.4-12.4) fL Immature Gran % (Auto) 0.4 (0.0-0.4) % Neut % (Auto) 75.5 H (45-73) % Lymph % (Auto) 14.9 L (20-40) % [place] % (Auto) 6.0 (2-11) % Eos % (Auto) 2.6 (0-4) % Baso % (Auto) 0.6 (0-2) % Lymph # (Auto) 1.8 (1.2-4.9) X10*3/uL [place] # (Auto) 0.7 (0.1-1.2) X10*3/uL Eos # (Auto) 0.3 (0.0-0.4) X10*3/uL Baso # (Auto) 0.1 (0.0-0.2) X10*3/uL Abs Immat Gran (auto) 0.05 H (0.00-0.03) X10*3/uL Absolute Neuts (auto) 8.8 H (2.0-8.3) x10*3/uL Absolute Nucleated RBC 0.000 (0.0-0.012) X10*3/uL Nucleated RBC % (auto) 0.0 (0.0-0.2) /100WBC PT 12.9 (11.1-13.3) SEC INR 1.1 (0.9-1.1) Sodium 137 (135-145) mmol/L Potassium 4.0 (3.3-5.1) mmol/L Chloride 106 (96-108) mmol/L Carbon Dioxide 23 (22-29) mmol/L Anion Gap 12 (12-20) BUN 47 H (9-16) mg/dL Creatinine 3.54 H (0.5-1.4) mg/dL Estim Creat Clear Calc 18.7 Estimated GFR 18 Random Glucose 218 H (60-115) mg/dL Calcium 9.2 (8.4-10.2) mg/dL Magnesium 1.9 (1.6-2.6) mg/dL Total Bilirubin 0.3 (0.0-1.0) mg/dL AST 13 (5-37) U/L ALT 7 (0-40) U/L Alkaline Phosphatase 145 H (39-117) U/L Total Creatine Kinase 42 (38-174) U/L Troponin I High Sens 4.5 D (<3.5-35.0) ng/L Total Protein 6.9 (6.5-8.0) g/dL Albumin 3.1 L (3.5-5.0) g/dL Lipase 18 (8-78) U/L Influenza Type A (PCR) NEGATIVE (Negative) Influenza Type B (PCR) NEGATIVE (Negative) RSV RNA Qual (PCR) NEGATIVE (Negative) SARS-CoV-2 RNA (RT-PCR) NEGATIVE (Negative) Independent Interpretation I performed an independent interpretation of an: EKG (Normal sinus rhythm with a rate of [address] changes), Plain X-Ray (fracture of the right mid tibia) and CT Scan (Agree with Radiology interpretation, no obvious acute fracture) Radiology Impression Discussion of test interpretation with radiology: I have reviewed the radiologist's reading. (Right distal tibial fracture. Concern for nondisplaced left patellar fracture) Radiologist Impression: No acute fracture or dislocation of the left knee. No evidence of avascular necrosis. 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 Moderate knee joint effusion. Discharge Plan Discharge Clinical Impression: Parkinsonism, Closed right tibial fracture Patient Disposition: Home, Self-Care Instructions: Leg Fracture (ED) Additional Instructions: Your medical workup shows chronic anemia and chronic kidney disease. You may follow these up with your primary doctor Your imaging showed a spiral fracture of your right tibia It is recommended he go to rehab as you are unable to get around your house If you change your mind and wished to go to rehab, you may return for rehab placement You may use morphine up to 3 times a day as needed for severe pain This may make you sleepy, did not drink alcohol or drive after taking Follow-up with your primary doctor as well as Orthopedics Prescriptions: New morphine 15 mg tablet 7.5 mg PO BID PRN (Reason: pain) Qty: 12 0RF Rx Instructions: Partial Fill upon patient request. No Action ferrous sulfate 325 mg (65 mg iron) tablet 325 mg PO DAILY Qty: 90 1RF tamsulosin 0.4 mg capsule 0.4 mg PO DAILY diphenhydramine HCl [Benadryl] 25 mg capsule 25 mg PO BEDTIME ziprasidone HCl [Geodon] 60 mg capsule 60 mg PO BID bumetanide 2 mg tablet 2 mg PO BID Qty: 60 0RF melatonin 5 mg tablet 5 mg PO BEDTIME PRN (Reason: sleep) Qty: 30 0RF atorvastatin 80 mg tablet 80 mg PO DAILY benztropine 0.5 mg tablet 0.5 mg DAILY trazodone 50 mg tablet 50 - 100 mg PO BEDTIME PRN (Reason: Insomnia) amlodipine 10 mg Tablet 10 mg PO DAILY Qty: 30 1RF Protocol: Hold for SBP< HOLD for SBP < : 90 sodium bicarbonate 650 mg tablet 650 mg PO BID 30 Days Qty: 60 0RF gabapentin 100 mg capsule 100 mg PO BID hydralazine 50 mg tablet 150 mg PO BID Protocol: Hold for SBP< HOLD for SBP < : 90 carvedilol 6.25 mg tablet 6.25 mg PO BID prednisone 20 mg tablet 40 mg PO DAILY Qty: 10 0RF Lantus Solostar U-100 Insulin 100 unit/mL (3 mL) insulin pen 25 unit subcut DAILY insulin lispro [Humalog KwikPen Insulin] 100 unit/mL insulin pen 15 unit subcut TIDAC Referrals: José Miguel Lund MD [Physician] - (right tibia fracture)
[2024-02-01] MEDS: oxyCODONE HCl Immed Release 5 MG TABLET PO (17:26)
--- NOTE | 2024-02-01 17:26 | PC.NURSE ---
pt verbalizing pain in RLE is a 10/10. medication administered per provider order. effectiveness pending. pt having labs drawn by tech. pt/family spoke w/ provider in regards to results to xray. plan of care ongoing at this time. call grayson placed within reach.
--- NOTE | 2024-02-01 17:46 | MHC.EDTECH ---
Brought patient two warm blankets.
[2024-02-01 18:06] LABS: MANUAL DIFF FLAG NO
[2024-02-01 18:16] LABS: INTERNATIONAL NORM RATIO 1.1 (0.9-1.1); Prothrombin Time 12.9 SEC (11.1-13.3)
[2024-02-01 18:20] LABS: Basophils Absolute Auto 0.1 X10*3/uL (0.0-0.2); Basophils Percent Auto 0.6 % (0-2); Eosinophils Absolute Auto 0.3 X10*3/uL (0.0-0.4); Eosinophils Percent Auto 2.6 % (0-4); Hematocrit 25.4 % (42.0-52.0); Hemoglobin 8.8 g/dl (14.0-18.0); Imm Gran Abs Auto 0.05 X10*3/uL (0.00-0.03); Imm Gran Pct Auto 0.4 % (0.0-0.4); Lymphocytes Absolute Auto 1.8 X10*3/uL (1.2-4.9); Lymphocytes Percent Auto 14.9 % (20-40); Mean Corpuscular HGB Conc 34.6 g/dl (31.0-36.0); Mean Corpuscular Hemoglobin 28.9 pg (27.0-33.0); Mean Corpuscular Volume 83.6 fL (80.0-98.0); Mean Platelet Volume 9.2 fL (9.4-12.4); Monocytes Absolute Auto 0.7 X10*3/uL (0.1-1.2); Neutrophils Absolute Auto 8.8 x10*3/uL (2.0-8.3); Neutrophils Percent Auto 75.5 % (45-73); Platelet Count 330 X10*3/uL (160-400); Red Blood Count 3.04 X10*6/uL (4.60-5.80); Red Cell Distribution Width 13.7 % (11.0-16.0); White Blood Count 11.7 X10*3/uL (4.8-10.8)
[2024-02-01 18:28] LABS: Troponin-I High Sensitivity 4.5 ng/L (<3.5-35.0)
[2024-02-01 19:00] LABS: Alanine Aminotransferase 7 U/L (0-40); Albumin Level 3.1 g/dL (3.5-5.0); Alkaline Phosphatase 145 U/L (39-117); Anion Gap 12 (12-20); Aspartate Amino Transferase 13 U/L (5-37); Bilirubin Total 0.3 mg/dL (0.0-1.0); Blood Urea Nitrogen 47 mg/dL (9-16); Calcium 9.2 mg/dL (8.4-10.2); Carbon Dioxide 23 mmol/L (22-29); Chloride 106 mmol/L (96-108); Creatinine Clr Calc Pharmacy 18.7; Estimated Glomerular Filt Rate 18; Glucose Random 218 mg/dL (60-115); Lipase 18 U/L (8-78); Magnesium 1.9 mg/dL (1.6-2.6); Sodium 137 mmol/L (135-145); Total Protein 6.9 g/dL (6.5-8.0)
[2024-02-01 19:12] LABS: Influenza A PCR NEGATIVE (Negative); Influenza B PCR NEGATIVE (Negative); Resp Syncy Virus RNA Qual PCR NEGATIVE (Negative); SARS COV2 PCR INHOUSE NEGATIVE (Negative)
[2024-02-01 20:28] VITALS: BP 157/84; PULSE 87; O2SAT 98
[2024-02-01] MEDS: Morphine Sulfate Immed Release 15 MG TABLET PO (21:05)
== END 2024-02-01 21:58 | disposition home or self-care (01) ==
PROVIDERS: Physician Assistant; Emergency Provider Emergency Medicine; PCP Internal Medicine
DX: S82.201A Unspecified fracture of shaft of right tibia, initial encounter for closed fracture (principal); R55 Syncope and collapse; G20.A1 Parkinson's disease without dyskinesia, without mention of fluctuations; R60.0 Localized edema; R51.9 Headache, unspecified; R94.31 Abnormal electrocardiogram [ECG] [EKG]; M54.2 Cervicalgia; W01.10XA Fall on same level from slipping, tripping and stumbling with subsequent striking against unspecified object, initial encounter; Y93.9 Activity, unspecified; Y92.9 Unspecified place or not applicable; Y99.8 Other external cause status; Z11.52 Encounter for screening for COVID-19; Z20.822 Contact with and (suspected) exposure to COVID-19; Z91.81 History of falling; Z79.899 Other long term (current) drug therapy
CPT/HCPCS: 0241U; 29505; 70450; 72125; 73560; 73590; 73610; 73700; 80053; 82550; 83690; 83735; 84484; 85025; 85610; 93005; 93971; 99284

== ENCOUNTER → 2024-02-01 16:37 | Outpatient (BNV) | payer OTHER, SELFPAY | PROVIDERS: Emergency Provider Emergency Medicine; PCP Internal Medicine; Visit Provider Internal Medicine Cardiovascular Disease | DX: I45.81 Long QT syndrome (principal) | CPT/HCPCS: 93010 ==

== ENCOUNTER 2024-02-05 20:35 | Outpatient (REF) | payer OTHER, SELFPAY | END 2024-02-05 20:36 | disposition home or self-care (01) | LOC: HO.HOSX 20:35 | PROVIDERS: Visit Provider Physician Assistant | DX: Z13.89 Encounter for screening for other disorder (principal) ==

== ENCOUNTER 2024-02-06 13:28 | Outpatient (REF) | payer OTHER, SELFPAY ==
--- NOTE | ~2024-02-06 | XR_ITS ---
EXAMINATION: XR TIBIA AND FIBULA, RIGHT CLINICAL INFORMATION: Pain. COMPARISON: Radiograph right tibia/fibula 02/01/2024. TECHNIQUE: AP and lateral views of the right tibia and fibula were obtained. FINDINGS: Spiral fracture of the distal tibial shaft with slightly increased posterior displacement of the distal fragment on the lateral view compared to 02/01/2024. There is also mild lateral displacement of the distal fragment on the frontal view, suboptimally assessed on the prior due to limited field of view. No interval injuries. Similar degree of soft tissue swelling. Scattered vascular calcifications. XR/XR tibia fibula RT 2V IMPRESSION: Slightly increased posterior displacement of the distal tibial fracture compared to 02/01/2024.
== END 2024-02-06 13:29 | disposition home or self-care (01) ==
LOC: HO.HOSX 13:28
PROVIDERS: PCP Internal Medicine; Visit Provider Physician Assistant
DX: S82.241A Displaced spiral fracture of shaft of right tibia, initial encounter for closed fracture (principal)
CPT/HCPCS: 73590; 99202

== ENCOUNTER 2024-02-06 13:28 | Outpatient (AMB) | payer OTHER, SELFPAY ==
--- NOTE | 2024-02-06 13:31 | MHC.OFFVIS ---
Intake Vital Signs 02/06/24 13:56 Height 5 ft 3 in Weight 129 lb BMI 22.8 Intake Visit Reasons: FC- Closed right tibial fracture 02/01/24 Intake Note: Yao ordaz 58 year old male presents today in a wheel chair for an ER follow up of right tibial fracture, DOI 02/01/24. Patient reports he had fallen injuring his leg, presented to [facility] ED same day where xrays were taken and placed in a splint. Currently he has constant pain in his mann area. He has numbness and tingling however he has a history of neuropathy. States no relief with Tylenol or ibuprofen. Allergies No Known Allergies [No Known Allergies*] Allergy (Verified 02/06/24 13:56) Medication List - Last Reconciled 02/06/24 by Arturo Kwon PA-C amlodipine 10 mg See Protocol PO DAILY atorvastatin 80 mg PO DAILY benztropine 0.5 mg DAILY bumetanide 2 mg PO BID carvedilol 6.25 mg PO BID diphenhydramine HCl (Benadryl) 25 mg PO BEDTIME ferrous sulfate 325 mg PO DAILY gabapentin 100 mg PO BID hydralazine 150 mg See Protocol PO BID insulin glargine (Lantus Solostar U-100 Insulin) 25 units subcut DAILY insulin lispro (Humalog KwikPen (U-100) Insulin) 15 units subcut TIDAC melatonin 5 mg PO BEDTIME PRN morphine 7.5 mg (1/2 x 15 mg) PO BID PRN prednisone 40 mg (2 x 20 mg) PO DAILY sodium bicarbonate 650 mg PO BID 30 days tamsulosin 0.4 mg PO DAILY trazodone 50 - 100 mg PO BEDTIME PRN ziprasidone HCl (Geodon) 60 mg PO BID HPI FC- Closed right tibial fracture 02/01/24 HPI Details 58-year-old male who presents to the office today on a wheelchair for an ER follow-up of right tibia injury after he sustained a fall and injuring his leg on 02/01/24. He states he has been in a wheelchair consistently for the last month due to severe neuropathy of the feet. At baseline, he will use a walker for ambulation, but has poor balance due to the neuropathy which has caused him to fall on multiple occasions. He was seen at ED the same day as his injury, x-rays were performed which demonstrated a right tibial shaft fracture. He was placed in splint and d/c home the ED. [facility] Medical History Anemia Congestive heart failure Nephrotic syndrome Diastolic heart failure Anemia Pneumonia Diabetic nephropathy Anemia Chronic pain syndrome Diabetic polyneuropathy Vitamin D deficiency Depression HTN (hypertension) HLD (hyperlipidemia) T2DM (type 2 diabetes mellitus) Surgical History Status post biopsy of kidney Hx of colonoscopy Hx of rotator cuff surgery Family History Father Colon cancer Mother History of kidney problems T2DM (type 2 diabetes mellitus) Sister T2DM (type 2 diabetes mellitus) Social History Household Members: None Housing: Apartment Do you presently have visiting nurse or other home services: No (YIELD ENGINEER service 13/06) Alcohol intake: former Comment: allowed to walk in room Patient Tobacco Use Status: Never used Tobacco Substance Use Type: Crack/Cocaine Advance Directives Date on File: 04/28/23 service: No Current occupational status: disabled Current occupation: right handed Review of Systems Const All systems reviewed & are unremarkable except as noted in HPI and below Physical Exam Vital Signs: BMI result Body Mass Index 22.8 Const General: cooperative and no acute distress Orientation/consciousness: patient oriented x3 Resp Effort & Inspection: normal respiratory effort and able to speak in complete sentences Cardio Peripheral pulses: Peripheral pulses 2+ throughout Neuro General: patient oriented x3 Extrem Other: RLE: Skin is intact. He has mild tenderness over the fracture site which is distal 3rd of tibia. He has surrounding erythema, no open wound or abrasions. No skin tenting from fracture. Pulses are present. NVI. Office Procedures Casting/Splints 41600-Kzwxo Leg Cast Application Procedure code (CPT) selection complete Fracture Care Fracture Billing Code: Fracture Billing Code Results Reviewed Results Reviewed: X-rays of the right tibia obtained in the office today show a minimally displaced distal 3rd of tibia shaft fracture. Assessment & Plan Assessment & Plan (1) Closed right tibial fracture: Code(s): S82.201A - Unspecified fracture of shaft of right tibia, initial encounter for closed fracture Qualifiers: Encounter type: initial encounter Tibia location: shaft Fracture morphology: spiral Fracture alignment: displaced Qualified Code(s): S82.241A - Displaced spiral fracture of shaft of right tibia, initial encounter for closed fracture Plan Images were reviewed with Dr. Varela in the office today. Given the extent of his comorbidities, including the diabetic neuropathy and how it has been limiting him with weight bearing activities we are going to place him in a short leg cast non weight bearing for 6 weeks. I did explained the r/b/a to surgical vs non surgical intervention. Since he has poor balance and diabetic neuropathy, risk may include, but are not limited to poor wound and bone healing along with fracture around the hardware. I also explained non surgical risked include but are not limited to non union or malunion and ongoing pain. He expressed understanding. He will see me back next week for a skin check , sooner if needed Orders: Orders XR tibia fibula RT 2V Today R52 - Pain, unspecified Patient Instructions: Scribed for Arturo Kwon PA-C, by Addison Ramos medical records clerk, on 02/06/2024 at 1:45 PM EST. IArturo PA-C, have personally reviewed and agree with the information entered by the scribe. Coding Level of Care Code New Pt Level 3 (37243) Diagnoses Closed displaced spiral fracture of shaft of right tibia, initial encounter S82.241A Encounter type: initial encounter Tibia location: shaft Fracture morphology: spiral Fracture alignment: displaced CPT Codes Casting - CPT: 75518-Kwaeo Leg Cast Application ([id number]) Fracture Care - Fracture Billing Code: Fracture Billing Code ([id number])
[2024-02-06 13:56] VITALS: BMI 22.8
== END 2024-02-06 15:50 | disposition home or self-care (01) ==
PROVIDERS: PCP Internal Medicine; Visit Provider Physician Assistant
DX: S82.241A Displaced spiral fracture of shaft of right tibia, initial encounter for closed fracture (principal); W19.XXXA Unspecified fall, initial encounter
CPT/HCPCS: 27750; 99203

== ENCOUNTER 2024-02-14 08:16 | Outpatient (AMB) | payer OTHER, SELFPAY ==
[2024-02-14 08:27] VITALS: BP 140/72; PULSE 92
--- NOTE | 2024-02-14 08:27 | MHC.OFFVIS ---
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 Accompanied by: Son Allergies No Known Allergies [No Known Allergies*] Allergy (Verified 02/06/24 13:56) Medication List - Last Reconciled 02/14/24 by Aston Jason MD amlodipine 10 mg See Protocol PO DAILY atorvastatin 80 mg PO DAILY benztropine 0.5 mg DAILY bumetanide 2 mg PO BID carvedilol 6.25 mg PO BID diphenhydramine HCl (Benadryl) 25 mg PO BEDTIME ferrous sulfate 325 mg PO DAILY gabapentin 100 mg PO BID hydralazine 150 mg See Protocol PO BID insulin glargine (Lantus Solostar U-100 Insulin) 25 units subcut DAILY insulin lispro (Humalog KwikPen (U-100) Insulin) 15 units subcut TIDAC melatonin 5 mg PO BEDTIME PRN metolazone 2.5 mg PO DAILY morphine 7.5 mg (1/2 x 15 mg) PO BID PRN prednisone 40 mg (2 x 20 mg) PO DAILY sodium bicarbonate 650 mg PO BID 30 days tamsulosin 0.4 mg PO DAILY trazodone 50 - 100 mg PO BEDTIME PRN ziprasidone HCl (Geodon) 60 mg PO BID HPI HPI Comments History of Present Illness Details Yao comes for follow-up. He comes here with his son. From heart perspective he has been doing well. He has not had any major issues with worsening shortness of breath, orthopnea, PND. Denies any worsening leg edema or weight gain. Metolazone was added to his regimen for improved diuresis. He said this has been working well. However says the morning when he wakes up he gets lightheaded and then usually falls to the ground loses consciousness. As a result his injured his right foot. Patient says he gets up quickly in the morning and goes to the kitchen. He does not recall his blood pressures at home. Denies any prolonged palpitations. [facility] Medical History Anemia Congestive heart failure Nephrotic syndrome Diastolic heart failure Anemia Pneumonia Diabetic nephropathy Anemia Chronic pain syndrome Diabetic polyneuropathy Vitamin D deficiency Depression HTN (hypertension) HLD (hyperlipidemia) T2DM (type 2 diabetes mellitus) Surgical History Status post biopsy of kidney Hx of colonoscopy Hx of rotator cuff surgery Family History Father Colon cancer Mother History of kidney problems T2DM (type 2 diabetes mellitus) Sister T2DM (type 2 diabetes mellitus) Social History Household Members: None Housing: Apartment Do you presently have visiting nurse or other home services: No (SHOW OPERATIONS SUPERVISOR service 13/06) Alcohol intake: former Comment: allowed to walk in room Patient Tobacco Use Status: Never used Tobacco Substance Use Type: Crack/Cocaine Advance Directives Date on File: 04/28/23 service: No Current occupational status: disabled Current occupation: right handed Review of Systems Const Denies chills, Denies fatigue, Denies fever(s), Denies frequent falls, Denies weakness, Denies weight gain and Denies weight loss ENT Denies dizziness Card Denies chest pain, Denies leg edema, Denies lightheadedness, Denies palpitations, Denies dyspnea, Denies dyspnea on exertion, Denies orthopnea and Denies other (loss of consciousness) Resp Denies cough, Denies dyspnea and Denies dyspnea on exertion GI Denies hematochezia and Denies change in stool character Musc Denies abnormal gait, Denies muscle weakness, Denies numbness, Denies radiating pain into limb and Denies tingling Neuro Denies abnormal gait, Denies dizziness, Denies frequent falls, Denies numbness, Denies tingling and Denies weakness Endo Denies fatigue and Denies palpitations Physical Exam Vital Signs: Last Vital Signs Pulse 92 02/14/24 08:27 BP 140/72 H 02/14/24 08:27 Const General: cooperative, comfortable, no acute distress, alert and awake Nutritional Appearance: average body habitus Orientation/consciousness: patient oriented x3 Limitations: no limitations Neck Neck: Yes trachea midline, Yes supple and Yes no JVD Resp Effort & Inspection: normal respiratory effort Auscultation: clear to auscultation bilaterally Cardio Jugular venous distension: no JVD Palpation: normal PMI Rate: regular rate Rhythm: regular rhythm Heart sounds: S1 normal heart sound present, S2 normal heart sound present, no click, no gallops, no murmurs and no rubs GI Auscultation: normal bowel sounds Skin General skin exam: no rashes or lesions noted Neuro General: patient oriented x3 and no focal motor deficits Extrem General: Yes no clubbing, cyanosis or edema Assessment & Plan Assessment & Plan (1) (HFpEF) heart failure with preserved ejection fraction: Code(s): I50.30 - Unspecified diastolic (congestive) heart failure Plan: Heart failure preserved ejection fraction secondary to diastolic dysfunction question related to hypertensive heart disease. Clinically today appears to be euvolemic and well compensated. He has been given extra metolazone by Nephrology team and they are being closely monitored by Nephrology team. He has multiple comorbidities including significant anemia, advanced kidney disease, poor functional status which increases his risk for rehospitalization. He is having symptoms of orthostatic lightheadedness and syncope. Discussed about management of orthostatic hypotension. Advised to monitor blood pressure at home maintain a log. We discussed about orthostatic precautions. He understands and agrees. Continue current diuretic regimen. Daily weight monitoring avoidance of salt loading was discussed. Continue aggressive control blood pressure. Not increasing his medications as he has symptoms suggestive of orthostatic hypertension this needs to be monitored closely. Avoidance of salt loading was discussed. Follow up in the clinic in 6 months time, sooner p.r.n.. Thank you for allowing me to partake in his care Coding Level of Care Code Est Pt Level 4 (75749) Diagnoses (HFpEF) heart failure with preserved ejection fraction I50.30
== END 2024-02-14 08:46 | disposition home or self-care (01) ==
PROVIDERS: PCP Internal Medicine; Visit Provider Internal Medicine Cardiovascular Disease
DX: I50.30 Unspecified diastolic (congestive) heart failure (principal)
CPT/HCPCS: 99214

== ENCOUNTER → 2024-02-14 08:16 | Outpatient (BNVA) | payer OTHER, SELFPAY | PROVIDERS: PCP Internal Medicine; Visit Provider Internal Medicine Cardiovascular Disease | DX: I50.30 Unspecified diastolic (congestive) heart failure (principal) | CPT/HCPCS: 99212 ==

== ENCOUNTER 2024-02-15 08:11 | Outpatient (REF) | payer OTHER, SELFPAY ==
--- NOTE | ~2024-02-15 | XR_ITS ---
EXAMINATION: XR TIBIA AND FIBULA, RIGHT CLINICAL INFORMATION: Pain, unspecified COMPARISON: Right tibia and fibula 02/06/2024 TECHNIQUE: AP and lateral views of the right tibia and fibula were obtained. FINDINGS: Again noted spiral fracture of the distal tibial shaft with slightly increased posterior displacement of the distal fragment on the lateral view compared to 02/06/2024. There is also mild lateral displacement of the distal fragment on the AP view. No interval injuries. Similar degree of soft tissue swelling. XR/XR tibia fibula RT 2V IMPRESSION: Slight increased posterior displacement of the distal tibial fracture compared to 02/06/2024.
== END 2024-02-15 08:12 | disposition home or self-care (01) ==
LOC: HO.HOSX 08:11
PROVIDERS: PCP Internal Medicine; Visit Provider Physician Assistant
DX: S82.241A Displaced spiral fracture of shaft of right tibia, initial encounter for closed fracture (principal); X58.XXXA Exposure to other specified factors, initial encounter; Y93.9 Activity, unspecified; Y92.9 Unspecified place or not applicable; Y99.9 Unspecified external cause status
CPT/HCPCS: 29405; 73590; 99212

== ENCOUNTER 2024-02-15 08:11 | Outpatient (AMB) | payer OTHER, SELFPAY ==
--- NOTE | 2024-02-15 08:27 | MHC.OFFVIS ---
Intake Vital Signs 02/15/24 08:32 Height 5 ft 3 in Weight 129 lb BMI 22.8 Intake Visit Reasons: OV - right tibial fx, DOI 02/01/24(skin check) Intake Note: Yao is a 58 year old male presents today in a wheel chair for a skin check of his right tibial fx, DOI 02/01/24. Patient reports still having continuous pain his leg. He was wondering if he can get some medication to help with the pain. He states that his pain is worse at night when he is sleeping. Allergies No Known Allergies [No Known Allergies*] Allergy (Verified 02/15/24 08:33) HPI OV - right tibial fx, DOI 02/01/24(skin check) HPI Details 58-year-old m who returns to the office today in a wheelchair for a follow-up of right knee fracture, 02/01/24. He continues to have pain in his right knee which is aggravated at night with sleeping. He also reports his cast has got loose. He would like to have some medication to help him with the pain. He has no other concerns. [facility] Medical History Anemia Congestive heart failure Nephrotic syndrome Diastolic heart failure Anemia Pneumonia Diabetic nephropathy Anemia Chronic pain syndrome Diabetic polyneuropathy Vitamin D deficiency Depression HTN (hypertension) HLD (hyperlipidemia) T2DM (type 2 diabetes mellitus) Surgical History Status post biopsy of kidney Hx of colonoscopy Hx of rotator cuff surgery Family History Father Colon cancer Mother History of kidney problems T2DM (type 2 diabetes mellitus) Sister T2DM (type 2 diabetes mellitus) Social History Household Members: None Housing: Apartment Do you presently have visiting nurse or other home services: No (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 RISK MANAGER service 13/06) Alcohol intake: former Comment: allowed to walk in room Patient Tobacco Use Status: Never used Tobacco Substance Use Type: Crack/Cocaine Advance Directives Date on File: 04/28/23 service: No Current occupational status: disabled Current occupation: right handed Review of Systems Const All systems reviewed & are unremarkable except as noted in HPI and below Physical Exam Vital Signs: BMI result Body Mass Index 22.8 Const General: cooperative and no acute distress Orientation/consciousness: patient oriented x3 Resp Effort & Inspection: normal respiratory effort and able to speak in complete sentences Cardio Peripheral pulses: Peripheral pulses 2+ throughout Neuro General: patient oriented x3 Extrem Other: RLE: Skin is intact. He has mild tenderness over the fracture site which is distal 3rd of tibia. He has surrounding erythema, no open wound or abrasions. No skin tenting from fracture. Pulses are present. NVI. Office Procedures Casting/Splints [id number] Leg Cast Application Procedure code (CPT) selection complete Results Reviewed Results Reviewed: X-rays of the right tib-fib obtained in the office today show a stable tibial shaft fracture with minimal displacement. Assessment & Plan Assessment & Plan (1) Closed right tibial fracture: Code(s): S82.201A - Unspecified fracture of shaft of right tibia, initial encounter for closed fracture Qualifiers: Encounter type: subsequent encounter Fracture alignment: displaced Fracture morphology: spiral Tibia location: shaft Fracture healing: with routine healing Qualified Code(s): S82.241D - Displaced spiral fracture of shaft of right tibia, subsequent encounter for closed fracture with routine healing Plan He placed in another short leg cast and he will remain non weight bearing. We will continue to monitor his skin which is looking good at this point, no evidence of skin breakdown and has less redness. He will see me back next week for a skin check and will continue to remain non weight bearing till then. Orders: Orders XR tibia fibula RT 2V Today R52 - Pain, unspecified Medications: New tramadol 50 mg PO BID 14 tabs 0RF 7 days Patient Instructions: Scribed for Arturo Kwon PA-C, by Addison Ramos medical investigator, on 02/15/2024 at 8:30 AM EST. IArturo PA-C, have personally reviewed and agree with the information entered by the scribe. Coding Level of Care Code Global (77148) Diagnoses Closed displaced spiral fracture of shaft of right tibia with routine healing, subsequent encounter S82.241D Encounter type: subsequent encounter Fracture alignment: displaced Fracture morphology: spiral Tibia location: shaft Fracture healing: with routine healing CPT Codes Casting - CPT: 23168-Paghu Leg Cast Application ([id number])
[2024-02-15 08:32] VITALS: BMI 22.8
== END 2024-02-15 10:16 | disposition home or self-care (01) ==
PROVIDERS: PCP Internal Medicine; Visit Provider Physician Assistant
DX: S82.241D Displaced spiral fracture of shaft of right tibia, subsequent encounter for closed fracture with routine healing (principal)
CPT/HCPCS: 29405; 99024

== ENCOUNTER 2024-02-22 08:26 | Outpatient (AMB) | payer OTHER, SELFPAY ==
--- NOTE | 2024-02-22 08:43 | A.OFFVIS_ITS ---
Intake Intake Visit Reasons: OV - right tibial fx, DOI 02/01/24(skin check) Intake Note: Yao ordaz 58 year old male presents today for a wound check s/p right tibial fracture, DOI 02/01/24. Patient reports ongoing pain that gets worse at night. Allergies No Known Allergies [No Known Allergies*] Allergy (Verified 02/22/24 08:44) HPI OV - right tibial fx, DOI 02/01/24(skin check) HPI Details 58-year-old male who returns to the [facility] today for a wound check of right tibial fracture, 02/01/24. He continues to have ongoing pain in his leg which is aggravated at night. He also reports his cast is loose. He has no other concerns today. COUNTS INCLUDE 234 BEDS AT THE [facility] Medical History Anemia Congestive heart failure Nephrotic syndrome Diastolic heart failure Anemia Pneumonia Diabetic nephropathy Anemia Chronic pain syndrome Diabetic polyneuropathy Vitamin D deficiency Depression HTN (hypertension) HLD (hyperlipidemia) T2DM (type 2 diabetes mellitus) Surgical History Status post biopsy of kidney Hx of colonoscopy Hx of rotator cuff surgery Family History Father Colon cancer Mother History of kidney problems T2DM (type 2 diabetes mellitus) Sister T2DM (type 2 diabetes mellitus) Social History Household Members: None Housing: Apartment Do you presently have visiting nurse or other home services: No (WAXER service 13/06) Alcohol intake: former Comment: allowed to walk in room Patient Tobacco Use Status: Never used Tobacco Substance Use Type: Crack/Cocaine Advance Directives Date on File: 04/28/23 service: No Current occupational status: disabled Current occupation: right handed Review of Systems Const All systems reviewed & are unremarkable except as noted in HPI and below Physical Exam Const General: cooperative and no acute distress Orientation/consciousness: patient oriented x3 Resp Effort & Inspection: normal respiratory effort and able to speak in complete sentences Cardio Peripheral pulses: Peripheral pulses 2+ throughout Neuro General: patient oriented x3 Extrem Other: RLE: Skin is intact. He has mild tenderness over the fracture site which is distal 3rd of tibia. He has surrounding erythema, no open wound or abrasions. No skin tenting from fracture. Pulses are present. NVI. Office Procedures Casting/Splints [id number]-[id number] Leg Cast Application Procedure code (CPT) selection complete Assessment & Plan Assessment & Plan (1) Closed right tibial fracture: Code(s): S82.201A - Unspecified fracture of shaft of right tibia, initial encounter for closed fracture Qualifiers: Encounter type: subsequent encounter Fracture alignment: displaced Fracture healing: with routine healing Fracture morphology: spiral Tibia location: shaft Qualified Code(s): S82.241D - Displaced spiral fracture of shaft of right tibia, subsequent encounter for closed fracture with routine healing Plan Cast was removed in the office today. Patient states the cast was loose so a new cast was applied with another window. I can see his skin improving and has no concerns of skin breakdown however I did put another window in the cast so that he can see the site and make sure if he has no issues, but if he does, he will contact the office, otherwise he will return in 3 weeks with cast off and new x- rays, sooner if needed. Patient Instructions: Scribed for Arturo Kwon PA-C, by Addison Ramos medical payment poster, on 02/22/2024 at 8:30 AM EST. I, Arturo Kwon PA-C, have personally reviewed and agree with the information entered by the scribe. Coding Level of Care Code Global (54327) Diagnoses Closed displaced spiral fracture of shaft of right tibia with routine healing, subsequent encounter S82.241D Encounter type: subsequent encounter Fracture alignment: displaced Fracture healing: with routine healing Fracture morphology: spiral Tibia location: shaft CPT Codes Casting - CPT: 53591-Bgdua Leg Cast Application ([id number])
== END 2024-02-22 10:16 | disposition home or self-care (01) ==
PROVIDERS: PCP Internal Medicine; Visit Provider Physician Assistant
DX: S82.241D Displaced spiral fracture of shaft of right tibia, subsequent encounter for closed fracture with routine healing (principal)
CPT/HCPCS: 29405; 99024

== ENCOUNTER → 2024-02-22 08:26 | Outpatient (BNVA) | payer OTHER, SELFPAY | PROVIDERS: PCP Internal Medicine; Visit Provider Physician Assistant | DX: S82.241D Displaced spiral fracture of shaft of right tibia, subsequent encounter for closed fracture with routine healing (principal); X58.XXXD Exposure to other specified factors, subsequent encounter | CPT/HCPCS: 29405; 99212 ==

== ENCOUNTER 2024-03-06 09:30 | Outpatient (AMB) | payer OTHER, SELFPAY ==
--- NOTE | 2024-03-06 09:37 | A.OFFVIS_ITS ---
Intake Vital Signs 03/06/24 09:39 Height 5 ft 3 in Weight 129 lb BMI 22.8 Intake Visit Reasons: OV - right tibial fx, DOI 02/01/24(skin check) Intake Note: Yao ordaz 58 year old male presents today for a wound check s/p right tibial fracture, DOI 02/01/24. Patient reports he noticed it getting black over the week and says that puss has be coming out from the area. Allergies No Known Allergies [No Known Allergies*] Allergy (Verified 03/06/24 09:44) HPI OV - right tibial fx, DOI 02/01/24(skin check) HPI Details 58-year-old male, who is Cymraes speakin g, presents in the office today for a wound check of a right tibial fracture, which occurred on 02/01/2024. Patient was last seen in the office on 02/22/2024 by Arturo Kwon PA-C when he was placed into a new cast with another window. While in the office today the patient reports noticing the skin becoming black over the past week. He claims to have puss coming out from the area. [facility]LY [facility] Medical History Anemia Congestive heart failure Nephrotic syndrome Diastolic heart failure Anemia Pneumonia Diabetic nephropathy Anemia Chronic pain syndrome Diabetic polyneuropathy Vitamin D deficiency Depression HTN (hypertension) HLD (hyperlipidemia) T2DM (type 2 diabetes mellitus) Surgical History Status post biopsy of kidney Hx of colonoscopy Hx of rotator cuff surgery Family History Father Colon cancer Mother History of kidney problems T2DM (type 2 diabetes mellitus) Sister T2DM (type 2 diabetes mellitus) Social History Household Members: None Housing: Apartment Do you presently have visiting nurse or other home services: No ([facility] service 13/06) Alcohol intake: former Comment: allowed to walk in room Patient Tobacco Use Status: Never used Tobacco Substance Use Type: Crack/Cocaine Advance Directives Date on File: 04/28/23 service: No Current occupational status: disabled Current occupation: right handed Review of Systems Const All systems reviewed & are unremarkable except as noted in HPI and below Physical Exam Vital Signs: BMI result Body Mass Index 22.8 Const General: cooperative and no acute distress Orientation/consciousness: patient oriented x3 Resp Effort & Inspection: normal respiratory effort and able to speak in complete sentences Cardio Rate: regular rate Peripheral pulses: Peripheral pulses 2+ throughout GI Palpation (GI): Soft to palpation Skin Lesions: no lesions Rashes: no rashes Neuro General: patient oriented x3 Extrem Other: Right lower extremity: Cast is clean/dry/intact with window over the anterior tibia. Anterior tibia has developed wound break down which is pea sized area with eschar tissue covering the area. There is no active drainage. No surrounding erythema. Slight tenderness to palpation. Area looks as though there is some cellulitis developing. Able to move all digits. Capillary refill is brisk. Assessment & Plan Assessment & Plan (1) Closed right tibial fracture: Code(s): S82.201A - Unspecified fracture of shaft of right tibia, initial encounter for closed fracture Qualifiers: Encounter type: subsequent encounter Fracture alignment: displaced Fracture healing: with routine healing Fracture morphology: spiral Tibia location: shaft Qualified Code(s): S82.241D - Displaced spiral fracture of shaft of right tibia, subsequent encounter for closed fracture with routine healing (2) Diabetes mellitus: Code(s): E11.9 - Type 2 diabetes mellitus without complications Plan Mr. Rivera is a 58-year-old male, who is Cymraes speaking, presents in the office today for a wound check of a right tibial fracture, which occurred on 02/01/2024. Patient was last seen in the office on 02/22/2024 by Arturo Kwon PA-C when he was placed into a new cast with another window. While in the office today the patient reports noticing the skin becoming black over the past week. He claims to have puss coming out from the area. The wound was dressed with Xeroform and nonstick gauze. Cast remained in place with window. A prescription for Bactrim 800-160 mg PO BID was sent to the pharmacy for 7 days with instructions should his symptoms continue to worsen, then he should contact the office immediately. I did educate the patient that if this continues to worsen, he may need hospitalization for IV antibiotics as he is a diabetic. We should monitor this carefully and I would like to see him back on Tuesday with FLY Kwon, who has been monitoring him for a wound check, or sooner if needed. Medications: New sulfamethoxazole-trimethoprim 800-160 mg (Bactrim DS) 1 tab PO BID 14 tabs 0RF 7 days Patient Instructions: Scribed by Tessa Lisa medical assistant cardiology, for Carolyn Kentrell CERON on 03/06/2024 at 9:47 am, EST. Coding Level of Care Code Global (69823) Diagnoses Closed displaced spiral fracture of shaft of right tibia with routine healing, subsequent encounter S82.241D Encounter type: subsequent encounter Fracture alignment: displaced Fracture healing: with routine healing Fracture morphology: spiral Tibia location: shaft Diabetes mellitus E11.9
[2024-03-06 09:39] VITALS: BMI 22.8
== END 2024-03-06 10:15 | disposition home or self-care (01) ==
LOC: HO.HOS 09:31
PROVIDERS: PCP Internal Medicine; Visit Provider Physician Assistant
DX: S82.241D Displaced spiral fracture of shaft of right tibia, subsequent encounter for closed fracture with routine healing (principal); E11.9 Type 2 diabetes mellitus without complications
CPT/HCPCS: 99024

== ENCOUNTER → 2024-03-06 09:30 | Outpatient (BNVA) | payer OTHER, SELFPAY | PROVIDERS: PCP Internal Medicine; Visit Provider Physician Assistant | DX: S82.241D Displaced spiral fracture of shaft of right tibia, subsequent encounter for closed fracture with routine healing (principal); E11.9 Type 2 diabetes mellitus without complications | CPT/HCPCS: 99212 ==

== ENCOUNTER 2024-03-09 08:18 | Outpatient (REF) | payer OTHER, SELFPAY ==
--- NOTE | ~2024-03-09 | XR_ITS ---
EXAMINATION: XR TIBIA AND FIBULA, RIGHT CLINICAL INFORMATION: Pain. COMPARISON: X-rays of the right tibia-fibula most recent 02/15/2024 TECHNIQUE: AP and lateral views of the right tibia and fibula were obtained. FINDINGS: Distal spiral oblique diaphyseal fracture redemonstrated with unchanged alignment allowing for slight differences in projection.. There is mild increased callus formation compared with the prior examination. The fracture line remains visible. Arterial calcification noted. XR/XR tibia fibula RT 2V IMPRESSION: Healing fracture of the distal tibia unchanged in alignment compared with the prior x-ray.
== END 2024-03-09 08:19 | disposition home or self-care (01) ==
LOC: HO.HOSX 08:18
PROVIDERS: Visit Provider Physician Assistant
DX: S82.241D Displaced spiral fracture of shaft of right tibia, subsequent encounter for closed fracture with routine healing (principal); X58.XXXD Exposure to other specified factors, subsequent encounter
CPT/HCPCS: 29405; 73590; 99212

== ENCOUNTER 2024-03-09 11:06 | Outpatient (AMB) | payer OTHER, SELFPAY ==
[2024-03-09 11:41] VITALS: BMI 22.8
--- NOTE | 2024-03-09 11:41 | A.OFFVIS_ITS ---
Vital Signs 03/09/24 11:41 Height 5 ft 3 in Weight 129 lb BMI 22.8 Intake Visit Reasons: OV - right tibial fx, DOI 02/01/24(skin check) Intake Note: Yao ordaz 58 year old male presents today for a wound check s/p right tibial fracture, DOI 02/01/24. Cast removed and xrays updated in office. States his pain is better and is doing well. Allergies No Known Allergies [No Known Allergies*] Allergy (Verified 03/09/24 11:42) HPI HPI OV - right tibial fx, DOI 02/01/24(skin check): Details: 58-year-old male who returns to the office today for a follow-up of right tibial fracture, 02/01/24. He states he has improvement in his pain and is doing well overall. He has no concerns today. [facility] Medical History Anemia Congestive heart failure Nephrotic syndrome Diastolic heart failure Anemia Pneumonia Diabetic nephropathy Anemia Chronic pain syndrome Diabetic polyneuropathy Vitamin D deficiency Depression HTN (hypertension) HLD (hyperlipidemia) T2DM (type 2 diabetes mellitus) Surgical History Status post biopsy of kidney Hx of colonoscopy Hx of rotator cuff surgery Family History Father Colon cancer Mother History of kidney problems T2DM (type 2 diabetes mellitus) Sister T2DM (type 2 diabetes mellitus) Social History Household Members: None Housing: Apartment Do you presently have visiting nurse or other home services: No ([facility] service 13/06) Alcohol intake: former Comment: allowed to walk in room Patient Tobacco Use Status: Never used Tobacco Substance Use Type: Crack/Cocaine Advance Directives Date on File: 04/28/23 service: No Current occupational status: disabled Current occupation: right handed Review of Systems Const All systems reviewed & are unremarkable except as noted in HPI and below Physical Exam Vital Signs: BMI result Body Mass Index 22.8 Extrem Other: Right tibia: Has an area of scabbing along the distal 3rd of the tibia with some scant redness and mild tenderness. No evidence of open or exposed fracture. Office Procedures Casting/Splints 76895-[id number] Leg Cast Application Procedure code (CPT) selection complete Results Reviewed Results Reviewed: X-rays of the right tibia obtained in the office today show a stable fracture pattern. Assessment & Plan Assessment & Plan (1) Closed right tibial fracture: Code(s): S82.201A - Unspecified fracture of shaft of right tibia, initial encounter for closed fracture Category: Medical Qualifiers: Encounter type: subsequent encounter Fracture alignment: displaced Fracture healing: with routine healing Fracture morphology: spiral Tibia location: shaft Qualified Code(s): S82.241D - Displaced spiral fracture of shaft of right tibia, subsequent encounter for closed fracture with routine healing Plan He will continue his antibiotics as instructed. He was placed back in a short leg cast with an open window to avoid pressure in the area. He will see me back next week for a wound check, sooner if needed. Orders: Orders XR tibia fibula RT 2V 03/09/24 R52 - Pain, unspecified Patient Instructions: Scribed for Arturo Kwon PA-C, by Addison Ramos medical assistant secretary, on 03/09/2024 at 11:30 AM Arturo VEGA PA-C, have personally reviewed and agree with the information entered by the scribe.
== END 2024-03-09 12:42 | disposition home or self-care (01) ==
PROVIDERS: PCP Internal Medicine; Visit Provider Physician Assistant
DX: S82.241D Displaced spiral fracture of shaft of right tibia, subsequent encounter for closed fracture with routine healing (principal)
CPT/HCPCS: 29405; 99024

== ENCOUNTER 2024-03-15 08:47 | Outpatient (AMB) | payer OTHER, SELFPAY ==
--- NOTE | 2024-03-15 08:56 | A.OFFVIS_ITS ---
Vital Signs 03/15/24 08:57 Height 5 ft 3 in Weight 129 lb BMI 22.8 Intake Visit Reasons: OV - right tibial fx, DOI 02/01/24(skin check) Intake Note: Joni 58 year old male who presents today for a follow up of right tibial fracture, DOI 02/01/24. Patient reports that he has discomfort in the heel of his foot and is requesting a cast change. Allergies No Known Allergies [No Known Allergies*] Allergy (Verified 03/15/24 08:58) HPI HPI OV - right tibial fx, DOI 02/01/24(skin check): Details: 58-year-old male who returns to the office today for a follow-up of right tibial fracture, 02/01/24. He continues to have discomfort in the heel of his foot. He is requesting for a cast change. He has no other concerns. [facility] Medical History Anemia Congestive heart failure Nephrotic syndrome Diastolic heart failure Anemia Pneumonia Diabetic nephropathy Anemia Chronic pain syndrome Diabetic polyneuropathy Vitamin D deficiency Depression HTN (hypertension) HLD (hyperlipidemia) T2DM (type 2 diabetes mellitus) Surgical History Status post biopsy of kidney Hx of colonoscopy Hx of rotator cuff surgery Family History Father Colon cancer Mother History of kidney problems T2DM (type 2 diabetes mellitus) Sister T2DM (type 2 diabetes mellitus) Social History Household Members: None Housing: Apartment Do you presently have visiting nurse or other home services: No ([facility] service 13/06) Alcohol intake: former Comment: allowed to walk in room Patient Tobacco Use Status: Never used Tobacco Substance Use Type: Crack/Cocaine Advance Directives Date on File: 04/28/23 service: No Current occupational status: disabled Current occupation: right handed Review of Systems Const All systems reviewed & are unremarkable except as noted in HPI and below Physical Exam Vital Signs: BMI result Body Mass Index 22.8 Extrem Other: Right tibia: Has an area of scabbing along the distal 3rd of the tibia with some scant redness and no tenderness. No evidence of open or exposed fracture. Office Procedures Casting/Splints [id number] Leg Cast Application Procedure code (CPT) selection complete Results Reviewed Results Reviewed: X-rays of the right tibia obtained in the office today show a stable fracture pattern. Assessment & Plan Assessment & Plan (1) Closed right tibial fracture: Code(s): S82.201A - Unspecified fracture of shaft of right tibia, initial encounter for closed fracture Category: Medical Qualifiers: Encounter type: subsequent encounter Fracture alignment: displaced Fracture healing: with routine healing Fracture morphology: spiral Tibia location: shaft Qualified Code(s): S82.241D - Displaced spiral fracture of shaft of right tibia, subsequent encounter for closed fracture with routine healing Plan He was placed back to a short leg cast which he will wear for the next 3 weeks, NWB, to ensure immobilization of the fracture. He will see us back in 3 weeks for cast off and new x-rays, sooner if needed. Patient Instructions: Scribed for Arturo Kwon PA-C, by Addison Ramos certified medical coder, on 03/15/2024 at 9:00 AM EST. I, Arturo Kwon PA-C, have personally reviewed and agree with the information entered by the scribe. Coding Level of Care Code Global (03680) Diagnoses Closed displaced spiral fracture of shaft of right tibia with routine healing, subsequent encounter S82.241D Encounter type: subsequent encounter Fracture alignment: displaced Fracture healing: with routine healing Fracture morphology: spiral Tibia location: shaft CPT Codes Casting - CPT: 67642-[id number] Leg Cast Application ([id number])
[2024-03-15 08:57] VITALS: BMI 22.8
== END 2024-03-15 10:01 | disposition home or self-care (01) ==
PROVIDERS: PCP Internal Medicine; Visit Provider Physician Assistant
DX: S82.241D Displaced spiral fracture of shaft of right tibia, subsequent encounter for closed fracture with routine healing (principal)
CPT/HCPCS: 29405; 99024

== ENCOUNTER → 2024-03-15 08:47 | Outpatient (BNVA) | payer OTHER, SELFPAY | PROVIDERS: PCP Internal Medicine; Visit Provider Physician Assistant | DX: S82.241D Displaced spiral fracture of shaft of right tibia, subsequent encounter for closed fracture with routine healing (principal) | CPT/HCPCS: 29405; 99212 ==

== ENCOUNTER 2024-04-03 12:00 | Outpatient (REF) | payer OTHER, SELFPAY ==
[2024-04-03 12:36] LABS: MANUAL DIFF FLAG NO
[2024-04-03 13:28] LABS: Basophils Absolute Auto 0.1 X10*3/uL (0.0-0.2); Basophils Percent Auto 1.1 % (0-2); Eosinophils Absolute Auto 0.4 X10*3/uL (0.0-0.4); Eosinophils Percent Auto 4.5 % (0-4); Hematocrit 23.7 % (42.0-52.0); Hemoglobin 8.2 g/dl (14.0-18.0); Imm Gran Abs Auto 0.06 X10*3/uL (0.00-0.03); Imm Gran Pct Auto 0.7 % (0.0-0.4); Lymphocytes Absolute Auto 2.6 X10*3/uL (1.2-4.9); Lymphocytes Percent Auto 31.9 % (20-40); Mean Corpuscular HGB Conc 34.6 g/dl (31.0-36.0); Mean Corpuscular Hemoglobin 28.9 pg (27.0-33.0); Mean Corpuscular Volume 83.5 fL (80.0-98.0); Mean Platelet Volume 9.6 fL (9.4-12.4); Monocytes Absolute Auto 0.7 X10*3/uL (0.1-1.2); Monocytes Percent Auto 8.7 % (2-11); Neutrophils Absolute Auto 4.3 x10*3/uL (2.0-8.3); Neutrophils Percent Auto 53.1 % (45-73); Platelet Count 294 X10*3/uL (160-400); Red Blood Count 2.84 X10*6/uL (4.60-5.80); Red Cell Distribution Width 13.9 % (11.0-16.0)
[2024-04-03 13:42] LABS: Estimated Average Glucose 146 mg/dL; Hemoglobin A1c % 6.7 % (<6.0)
[2024-04-03 14:21] LABS: Parathyroid Hormone Intact 432.5 pg/mL (8.7-77.1)
[2024-04-03 14:35] LABS: Vitamin D 25-OH Total 7.9 ng/mL (>30)
[2024-04-03 15:28] LABS: Anion Gap 16 (12-20); Blood Urea Nitrogen 61 mg/dL (9-16); Calcium 8.9 mg/dL (8.4-10.2); Carbon Dioxide 21 mmol/L (22-29); Chloride 105 mmol/L (96-108); Estimated Glomerular Filt Rate 15; Iron 45 mcg/dL (45-160); Percent Iron Saturation 26 % (15-50); Phosphorus 4.7 mg/dL (2.7-4.5); Potassium 3.8 mmol/L (3.3-5.1); Sodium 138 mmol/L (135-145); Total Iron Binding Capacity 172 mcg/dL (228-428); Unsaturated Iron Binding 127 ug/dL
== END 2024-04-03 12:01 | disposition home or self-care (01) ==
LOC: HO.LAB 12:00
PROVIDERS: PCP Internal Medicine; Visit Provider Internal Medicine
DX: N18.5 Chronic kidney disease, stage 5 (principal)
CPT/HCPCS: 36415; 80051; 82306; 82310; 82565; 83036; 83540; 83970; 84100; 84520; 85025

== ENCOUNTER 2024-04-05 08:56 | Outpatient (REF) | payer OTHER, SELFPAY ==
--- NOTE | ~2024-04-05 | XR_ITS ---
EXAMINATION: XR TIBIA AND FIBULA, RIGHT CLINICAL INFORMATION: Pain. COMPARISON: Multiple prior x-rays most recent February 2024 TECHNIQUE: AP and lateral views of the right tibia and fibula were obtained. FINDINGS: Mildly displaced spiral oblique fracture of the distal diaphysis of the tibia with unchanged in alignment. There is progressing callus formation noted. No additional bone abnormalities. Arterial calcification noted. XR/XR tibia fibula RT 2V IMPRESSION: Healing fracture of the distal tibia unchanged in alignment.
== END 2024-04-05 08:57 | disposition home or self-care (01) ==
LOC: HO.HOSX 08:56
PROVIDERS: Visit Provider Physician Assistant
DX: S82.241D Displaced spiral fracture of shaft of right tibia, subsequent encounter for closed fracture with routine healing (principal)
CPT/HCPCS: 73590; 99212

== ENCOUNTER 2024-04-05 09:12 | Outpatient (AMB) | payer OTHER, SELFPAY ==
[2024-04-05 09:42] VITALS: BMI 22.8
--- NOTE | 2024-04-05 09:42 | MHC.OFFVIS ---
Vital Signs 04/05/24 09:42 Height 5 ft 3 in Weight 129 lb BMI 22.8 Intake Visit Reasons: OV - right tibial fx, DOI 02/01/24(skin check) Intake Note: Joni 58 year old male who presents today for a follow up of right tibial fracture, DOI 02/01/24. Cast off and xrays updated. Patient reports he is doing well, states no pain just a little stiffness coming out of cast. Allergies No Known Allergies [No Known Allergies*] Allergy (Verified 04/05/24 13:39) HPI HPI OV - right tibial fx, DOI 02/01/24(skin check): Details: 58-year-old male who returns to the office today for a skin check of right tibia fracture, 02/01/24. [facility] Medical History Anemia Congestive heart failure Nephrotic syndrome Diastolic heart failure Anemia Pneumonia Diabetic nephropathy Anemia Chronic pain syndrome Diabetic polyneuropathy Vitamin D deficiency Depression HTN (hypertension) HLD (hyperlipidemia) T2DM (type 2 diabetes mellitus) Surgical History Status post biopsy of kidney Hx of colonoscopy Hx of rotator cuff surgery Family History Father Colon cancer Mother History of kidney problems T2DM (type 2 diabetes mellitus) Sister T2DM (type 2 diabetes mellitus) Social History Household Members: None Housing: Apartment Do you presently have visiting nurse or other home services: No ([facility] service 13/06) Alcohol intake: former Comment: allowed to walk in room Patient Tobacco Use Status: Never used Tobacco Substance Use Type: Crack/Cocaine Advance Directives Date on File: 04/28/23 service: No Current occupational status: disabled Current occupation: right handed Review of Systems Const All systems reviewed & are unremarkable except as noted in HPI and below Physical Exam Vital Signs: BMI result Body Mass Index 22.8 Extrem Other: Right tibia: Area over the distal tibial has fully resolved. No evidence of open or exposed fracture. No tenderness over fracture site. He does have some Neuropathy which is at his baseline. Results Reviewed Results Reviewed: X-rays of the right tibia obtained in the office today show a stable fracture pattern. Assessment & Plan Assessment & Plan (1) Closed right tibial fracture: Code(s): S82.201A - Unspecified fracture of shaft of right tibia, initial encounter for closed fracture Category: Medical Qualifiers: Encounter type: subsequent encounter Fracture alignment: displaced Fracture healing: with routine healing Fracture morphology: spiral Tibia location: shaft Qualified Code(s): S82.241D - Displaced spiral fracture of shaft of right tibia, subsequent encounter for closed fracture with routine healing Plan He was transitioned to a tall walking boot weight bearing as tolerated. He will wear the boot all times with ambulation and remove for hygiene and resting. If develops any worsening symptoms such as pain or swelling, he will contact the office, otherwise he will see me back in 2 weeks with new x-rays. Orders: Orders XR tibia fibula RT 2V Today R52 - Pain, unspecified Patient Instructions: Scribed for Arturo Kwon PA-C, by Addison Ramos medical registrar, on 04/05/2024 at 9:45 AM EST.? I, Arturo Kwon PA-C, have personally reviewed and agree with the information entered by the scribe. Coding Level of Care Code Global (83943) Diagnoses Closed displaced spiral fracture of shaft of right tibia with routine healing, subsequent encounter S82.241D Encounter type: subsequent encounter Fracture alignment: displaced Fracture healing: with routine healing Fracture morphology: spiral Tibia location: shaft
== END 2024-04-05 10:19 | disposition home or self-care (01) ==
PROVIDERS: PCP Internal Medicine; Visit Provider Physician Assistant
DX: S82.241D Displaced spiral fracture of shaft of right tibia, subsequent encounter for closed fracture with routine healing (principal)
CPT/HCPCS: 99024

== ENCOUNTER 2024-04-18 00:07 | Emergency (ER) | payer OTHER, SELFPAY ==
[2024-04-18 00:13] VITALS: BP 121/67; PULSE 71; RESP 22; TEMP 36.4; O2SAT 99; BMI 23.1
[2024-04-18 00:33] LABS: MANUAL DIFF FLAG NO
[2024-04-18 00:34] LABS: Basophils Percent Auto 0.4 % (0-2); Eosinophils Absolute Auto 0.1 X10*3/uL (0.0-0.4); Eosinophils Percent Auto 0.9 % (0-4); Hematocrit 22.4 % (42.0-52.0); Hemoglobin 8.1 g/dl (14.0-18.0); Imm Gran Abs Auto 0.04 X10*3/uL (0.00-0.03); Imm Gran Pct Auto 0.4 % (0.0-0.4); Lymphocytes Absolute Auto 1.6 X10*3/uL (1.2-4.9); Lymphocytes Percent Auto 16.8 % (20-40); Mean Corpuscular HGB Conc 36.2 g/dl (31.0-36.0); Mean Corpuscular Hemoglobin 29.7 pg (27.0-33.0); Mean Corpuscular Volume 82.1 fL (80.0-98.0); Mean Platelet Volume 8.9 fL (9.4-12.4); Monocytes Absolute Auto 0.8 X10*3/uL (0.1-1.2); Monocytes Percent Auto 8.3 % (2-11); Neutrophils Absolute Auto 6.8 x10*3/uL (2.0-8.3); Neutrophils Percent Auto 73.2 % (45-73); Platelet Count 193 X10*3/uL (160-400); Red Blood Count 2.73 X10*6/uL (4.60-5.80); White Blood Count 9.3 X10*3/uL (4.8-10.8)
[2024-04-18 00:50] LABS: Alanine Aminotransferase 393 U/L (0-40); Albumin Level 3.5 g/dL (3.5-5.0); Alkaline Phosphatase 663 U/L (39-117); Anion Gap 12 (12-20); Aspartate Amino Transferase 306 U/L (5-37); Bilirubin Total 2.1 mg/dL (0.0-1.0); Blood Urea Nitrogen 55 mg/dL (9-16); Carbon Dioxide 19 mmol/L (22-29); Chloride 111 mmol/L (96-108); Creatinine Clr Calc Pharmacy 18.4; Estimated Glomerular Filt Rate 18; Glucose Random 169 mg/dL (60-115); Lipase 24 U/L (8-78); Potassium 3.8 mmol/L (3.3-5.1); Sodium 138 mmol/L (135-145); Total Protein 7.1 g/dL (6.5-8.0)
== END 2024-04-18 03:14 | disposition left against medical advice (07) ==
LOC: HO.ED 03:10
PROVIDERS: Emergency Provider Emergency Medicine
DX: R11.2 Nausea with vomiting, unspecified (principal); R10.10 Upper abdominal pain, unspecified; R53.1 Weakness; E11.9 Type 2 diabetes mellitus without complications; I10 Essential (primary) hypertension; E78.5 Hyperlipidemia, unspecified; G89.4 Chronic pain syndrome; Z53.21 Procedure and treatment not carried out due to patient leaving prior to being seen by health care provider
CPT/HCPCS: 36415; 80053; 83690; 85025; 99212; 99281; 99283

== ENCOUNTER 2024-04-18 10:16 | Outpatient (AMB) | payer OTHER, SELFPAY ==
--- NOTE | 2024-04-18 10:56 | MHC.OFFVIS ---
Intake Visit Reasons: OV - right tibial fx, DOI 02/01/24(skin check) Intake Note: Joni 58 year old male who presents today for a follow up of right tibial fracture, DOI 02/01/24. Xrays updated today. Patient reports he is doing well, states no pain or discomfort. He continues to wear boot as instructed. Allergies No Known Allergies [No Known Allergies*] Allergy (Verified 04/18/24 11:30) HPI HPI OV - right tibial fx, DOI 02/01/24(skin check): Details: 58-year-old male who returns to the office today for a follow-up of right tibial fracture, 02/01/24. He states he has no pain or discomfort and is doing well overall. He continues to wear the boot as instructed. He has no other concerns today. [facility] Medical History Anemia Congestive heart failure Nephrotic syndrome Diastolic heart failure Anemia Pneumonia Diabetic nephropathy Anemia Chronic pain syndrome Diabetic polyneuropathy Vitamin D deficiency Depression HTN (hypertension) HLD (hyperlipidemia) T2DM (type 2 diabetes mellitus) Surgical History Status post biopsy of kidney Hx of colonoscopy Hx of rotator cuff surgery Family History Father Colon cancer Mother History of kidney problems T2DM (type 2 diabetes mellitus) Sister T2DM (type 2 diabetes mellitus) Social History Household Members: Family Household Members Other:: 2 Housing: Apartment Do you presently have visiting nurse or other home services: Yes (1/wk) Alcohol intake: former Comment: allowed to walk in room Patient Tobacco Use Status: Never used Tobacco Second Hand Smoke Exposure: No Substance Use Type: Crack/Cocaine Advance Directives Date on File: 04/28/23 service: No Current occupational status: disabled Current occupation: right handed Review of Systems Const All systems reviewed & are unremarkable except as noted in HPI and below Physical Exam Extrem Other: Right tibia: Area over the distal tibial has fully resolved. No evidence of open or exposed fracture. No tenderness over fracture site. He does have some Neuropathy which is at his baseline. Results Reviewed Results Reviewed: X-rays of the right tibia obtained in the office today show a stable fracture pattern. Assessment & Plan Assessment & Plan (1) Closed right tibial fracture: Code(s): S82.201A - Unspecified fracture of shaft of right tibia, initial encounter for closed fracture Category: Medical Qualifiers: Encounter type: subsequent encounter Fracture alignment: displaced Fracture healing: with routine healing Fracture morphology: spiral Tibia location: shaft Qualified Code(s): S82.241D - Displaced spiral fracture of shaft of right tibia, subsequent encounter for closed fracture with routine healing Plan I did stress the importance of wearing the boot weight bearing as tolerated and risk of ambulating without boot such as refracture as his fracture is not completely healed at this time. I would like to see him back in 4-6 weeks with x-rays, sooner if needed. Orders: Orders XR tibia fibula RT 2V 04/18/24 R52 - Pain, unspecified Patient Instructions: Scribed for Arturo Kwon PA-C, by Addison Ramos medical staff coordinator, on 04/18/2024 at 10:30 AM EST.? I, Arturo Kwon PA-C, have personally reviewed and agree with the information entered by the scribe. Coding Level of Care Code Global (72684) Diagnoses Closed displaced spiral fracture of shaft of right tibia with routine healing, subsequent encounter S82.241D Encounter type: subsequent encounter Fracture alignment: displaced Fracture healing: with routine healing Fracture morphology: spiral Tibia location: shaft
== END 2024-04-18 11:19 | disposition home or self-care (01) ==
PROVIDERS: PCP Internal Medicine; Visit Provider Physician Assistant
DX: S82.241D Displaced spiral fracture of shaft of right tibia, subsequent encounter for closed fracture with routine healing (principal)
CPT/HCPCS: 99024

== ENCOUNTER 2024-04-18 11:25 | Inpatient (IN) | payer OTHER, SELFPAY ==
[2024-04-18] VITALS (10 sets, daily range): BP systolic 127–189; BP diastolic 63–84; PULSE 82–90; RESP 16–20; TEMP 36.4–37.1; O2SAT 97–99; BMI 22.4; BMI 23.5
--- NOTE | ~2024-04-18 | IR_ITS ---
CLINICAL HISTORY: Patient requires dialysis. The patient presents to interventional radiology for placement of a non-tunneled central venous catheter for hemodialysis. PROCEDURES: 1. Real-time ultrasound-guided access into the right internal jugular vein after documentation of selected vessel patency, and permanent imaging storing in the patient record. 2. Placement of a 12.0 fr 20 cm non-tunneled, dual-lumen hemodialysis catheter. Clinician: Pepe Akhtar PA-C MEDICATIONS: -Lidocaine 1% 10 mL SQ. -For additional details, please see nursing flowsheet. COMPLICATIONS: None. ESTIMATED BLOOD LOSS: <5 ml SPECIMENS: None FLUOROSCOPY TIME: 0.8 min PROCEDURE NOTE: The procedure, risks, benefits, and alternatives were carefully explained to patient, and written informed consent was obtained. The patient was placed supine on the fluoroscopy table. A timeout was performed. The right neck and chest was prepped and draped in usual sterile fashion. Local anesthesia was administered to the access site with lidocaine. Under ultrasound guidance, the right internal jugular vein was accessed with a 4 Fr micropuncture set. A 0.035 in wire was advanced into the IVC. The tract in the vein was serially dilated. Over the wire, a 12.0 fr 20 non-tunneled, dual-lumen hemodialysis catheter was advanced, with the tip located at the cavoatrial junction. The wire was removed. The catheter was tested, flushed, and sutured to the skin. A permanent fluoroscopic image of the chest was saved to PACS. The catheter ports were packed with heparin per routine protocol. The patient was stable after the procedure and was transferred to the medical floor. There were no immediate complications. FINDINGS: 1. Patent right internal jugular vein. 2. Placement of a non-tunneled, dual-lumen hemodialysis catheter as above. 3. Catheter flushes and aspirates very well with a 10 mL syringe. No pneumothorax. IR/IR us guide venous access IMPRESSION: Placement of a non-tunneled hemodialysis catheter in the right internal jugular vein. PLAN: -The catheter may be used immediately. This procedure was performed by Pepe Akhtar PA-C, and directly supervised by Dr. Lorenzana.
--- NOTE | ~2024-04-18 | MR_ITS ---
EXAMINATION: MR ABDOMEN WITHOUT CONTRAST/MRCP CLINICAL INFORMATION: Bilaterally. Cholecystectomy 04/20/2024. Reassess for CBD obstruction. COMPARISON: MRCP dated 04/19/2024. TECHNIQUE: An MRI scan of the abdomen was performed using multiple imaging sequences and imaging planes. As per the MRCP protocol, heavily T2-weighted 3-D high-resolution MRCP sequences were obtained in the coronal plane along with thin and thick slab coronal images and coronal MIP reconstructions obtained on the technologist workstation under concurrent physician supervision. FINDINGS: LIVER: The liver is normal in size and signal. No hepatic steatosis is seen. No focal cystic or solid mass is present. Trace amount of free fluid in Nolen's pouch is noted. GALLBLADDER/BILIARY TREE: The patient is status post cholecystectomy with postsurgical blooming artifact related to cutaneous bubba seen in the right upper quadrant. In addition, at the region of the proximal cystic duct, there is a rounded approximately 1 cm diameter blooming artifact seen, presumably related to the postcholecystectomy clips. There appears to be a tubular blind ending structure is seen extending from the gallbladder fossa to this rounded signal void, measuring 2.9 x 3.8 x 1.7 cm, suspicious for a contained bile leak versus a complex postsurgical collection versus less likely an abnormally dilated cystic duct remnant. Evaluation is limited given the lack of intravenous contrast. There is mild central intrahepatic ductal dilatation. Common hepatic duct measures 0.7 cm in diameter and the mid and distal common bile duct measure approximately 0.6 cm in diameter. The proximalmost common bile duct is obscured by the dephasing artifact in the gallbladder fossa. PANCREAS: The pancreas is diffusely atrophic. No ductal dilatation, mass or surrounding stranding is seen. The pancreatic duct measures 0.3 cm in maximal diameter. SPLEEN: Normal size and appearance. Splenic vein patent. ADRENAL GLANDS AND KIDNEYS: Adrenal glands normal. Kidneys bilaterally symmetric in size and function. No focal mass, hydronephrosis, or perinephric stranding. BOWEL LOOPS: Grossly within normal limits. LYMPHOVASCULAR STRUCTURES: Abdominal aorta normal in caliber. No periaortic collections. No abdominal adenopathy or free fluid collection. BONES: Within normal limits to the extent included. MR/MR MRCP IMPRESSION: * Postsurgical changes are seen related to cholecystectomy with dephasing artifact seen in the right upper quadrant. * There is a rounded signal void seen related to the cholecystectomy clip, partially obscuring assessment. There is a lobulated complex collection seen, extending from the gallbladder fossa to the proximal common bile duct, of uncertain etiology, possibly representing a contained bile leak versus a complex postsurgical collection versus less likely an abnormally dilated cystic duct remnant. Evaluation of the MRCP sequences is significantly limited. But no T2 bright signal matching the signal of the bile in the common bile duct is seen within this collection. Further evaluation with contrast-enhanced CT scan of the abdomen and pelvis is recommended. * Mild central intrahepatic ductal dilatation is seen. No evidence of choledocholithiasis. * Trace amount of free fluid in Nolen's pouch.
--- NOTE | ~2024-04-18 | XR_ITS ---
EXAMINATION: XR ABDOMEN KUB CLINICAL INDICATION: Ileus COMPARISON: CT scan abdomen and pelvis 04/23/2024 TECHNIQUE: Portable AP supine view of the abdomen. FINDINGS: There is no dilatation of large or small bowel. The bowel gas pattern is normal with no evidence of ileus or obstruction. No unusual soft tissue calcifications are noted. The bones are unremarkable. Skin bubba are seen in the right mid abdomen. Ovoid focus with calcified rim likely represents a gallstone in the right upper quadrant. Degenerative changes are seen in the lower lumbar spine. XR/XR KUB IMPRESSION: 1. No obstruction. 2. Cholelithiasis.
--- NOTE | ~2024-04-18 | MR_ITS ---
EXAMINATION: MR ABDOMEN WITHOUT CONTRAST CLINICAL INFORMATION: Choledocholithiasis versus cholecystitis. COMPARISON: 04/18/2024 TECHNIQUE: MR abdomen is performed without gadolinium contrast. Heavily T2 weighted MRCP sequences were also obtained. FINDINGS: LUNG BASES: The visualized lung bases are unremarkable. LIVER, GALLBLADDER, AND BILIARY TREE: The liver is normal in size and morphology. The liver is not enlarged. No evidence of hepatic steatosis. Moderate intrahepatic biliary ductal dilatation. The common duct is of normal caliber measuring 5 mm distally. There is 1.2 cm focal signal dropout of the common duct at the joan hepatis most likely related to the mass effect from a stone within the gallbladder. Mild gallbladder wall thickening and edema. Gallstones are present. Trace perihepatic free fluid. PANCREAS: No ductal dilatation. SPLEEN: Not enlarged. ADRENAL GLANDS: No adrenal mass. KIDNEYS AND URETERS: The kidneys are symmetric in size. No hydronephrosis. No perinephric stranding. GASTROINTESTINAL TRACT: No bowel obstruction. ABDOMINAL WALL: No significant hernia is appreciated. LYMPH NODES: No bulky lymphadenopathy. VASCULAR: Normal caliber abdominal aorta. MR/MR MRCP IMPRESSION: Moderate intrahepatic biliary ductal dilatation. The common duct is of normal caliber measuring 5 mm distally. There is 1.2 cm focal signal dropout of the common duct at the joan hepatis most likely related to the mass effect from a stone within the gallbladder. 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 There is gallbladder wall thickening and gallbladder wall edema with intraluminal gallstones. Trace perihepatic free fluid. Consider acute cholecystitis.
--- NOTE | ~2024-04-18 | NM_ITS ---
BILIARY TRACT IMAGING STUDY CLINICAL INDICATION: Rule out bile leak and bile duct obstruction. ELAINA drain, left percent ectopic cholecystectomy changed (procedure. Cholecystectomy 04/20/2024. PROCEDURE: Scintillation camera images were obtained over the abdomen for an observation of 120 minutes following the intravenous administration of 5.0 millicuries technetium 99m Mebrofenin. COMPARISON: There is good accumulation of activity in the liver by 5 minutes post injection. Biliary activity is visualized by approximately 30 minutes postinjection, predominantly in the common bile duct. Activity subsequently moves into the small bowel. As the study progresses, increasing small bowel activity is visualized. There is transiently some reflux of biliary activity into the stomach, starting at about 70 minutes post injection. The gallbladder has been resected and is not visualized. At the end of the study there is good clearance of activity from the liver with only faint liver activity persisting at the end of the study. Diffuse small bowel activity is visualized at this time, and most of the visualized activity is within the small bowel at the end of the study. No abnormal biliary collection is visualized at any time during the study. NM/NM hepatobiliary wo pharm IMPRESSION: No evidence of a biliary leak. The gallbladder has been resected and is not visualized. The common bile duct is patent and liver function appears normal.
--- NOTE | ~2024-04-18 | CT_ITS ---
EXAMINATION: CT HEAD WITHOUT CONTRAST (STROKE PROTOCOL) CLINICAL INFORMATION: Stroke protocol. Decreased level of consciousness, unable to talk COMPARISON: CT head 02/01/2024 TECHNIQUE: Contiguous axial imaging was performed from the skull base to vertex without intravenous administration of contrast. This CT examination was performed using dose optimization techniques as appropriate, variously including the following: *Automated exposure control *Adjustment of mA and/or kV according to patient size (this includes techniques or standardized protocols for targeted exams where dose is matched to indication/reason for exam; i.e. extremities or head) *Use of iterative reconstruction technique DLP: 773 mGy-cm FINDINGS: There is no evidence of acute intracranial hemorrhage or territorial infarction. [place]rago to white matter differentiation is well preserved. No abnormal mass effect or midline shift is seen. No extra-axial fluid collections are identified. No hydrocephalus. No significant volume loss. There is no abnormal attenuation within the brain parenchyma. The cerebellar tonsils are well positioned. No acute osseous or soft tissue abnormality. Bilateral lens extraction. The visualized portions of the paranasal sinuses are well aerated. Trace left mastoid effusion. CT/CT head for stroke IMPRESSION: No edematous territorial infarction or acute intracranial hemorrhage. No significant interval change compared to 02/01/2024. These results were discussed with Gregorio Galindo MD MD by telephone on 04/22/2024 at 8:35 PM and it was ascertained that the content of the report was understood at the time of direct communication.
--- NOTE | ~2024-04-18 | US_ITS ---
EXAMINATION: US ABDOMEN LIMITED CLINICAL INFORMATION: Right upper quadrant pain, vomiting, elevated bili. Evaluate liver, gallbladder, common bile duct. COMPARISON: CT abdomen 11/05/2023. TECHNIQUE: Real-time imaging of the liver, gallbladder, common bile duct. FINDINGS: LIVER: Normal. The liver is normal in size. The liver contour is normal. Parenchymal echogenicity is normal. No focal hepatic lesion. There is no intrahepatic biliary duct dilatation seen. GALLBLADDER: 2 gallstones measuring up to 1.9 cm. Adenomyomatosis of the gallbladder wall. No pericholecystic fluid. The patient was tender in the right upper quadrant. COMMON BILE DUCT: Not visualized. FREE FLUID: None. US/US abdomen limited IMPRESSION: Normal-appearing liver. Nonvisualization of the common bile duct. No intrahepatic biliary ductal dilatation. Cholelithiasis and tenderness in the right upper quadrant are consistent with acute cholecystitis, however no secondary evidence of cholecystitis on this exam (mural edema or pericholecystic fluid). Clinical correlation is necessary.
--- NOTE | ~2024-04-18 | CT_ITS ---
EXAMINATION: CT ABDOMEN AND PELVIS WITHOUT CONTRAST CLINICAL INFORMATION: Epigastric and right upper quadrant abdominal pain, elevated bili, rule out choledoco COMPARISON: Abdominal ultrasound 04/18/2024, CT abdomen and pelvis 11/05/2023. TECHNIQUE: Multidetector volumetric imaging was performed from the superior aspect of the liver through the pubic symphysis. Sagittal and coronal reformatted images were obtained on the technologist's workstation. This CT examination was performed using dose optimization techniques as appropriate, variously including the following: *Automated exposure control *Adjustment of mA and/or kV according to patient size (this includes techniques or standardized protocols for targeted exams where dose is matched to indication/reason for exam; i.e. extremities or head) *Use of iterative reconstruction technique DLP: 384 mGy-cm FINDINGS: LUNG BASES: No suspicious lung nodules. Mosaic attenuation and airway wall thickening suggesting chronic airways disease. LIVER, GALLBLADDER, AND BILIARY TREE: The liver is normal in size and noncontrast attenuation. Evaluation for biliary ductal dilatation is limited without intravenous contrast. No definite intrahepatic or extrahepatic biliary ductal dilatation is seen. No radiopaque choledocholithiasis. 1.9 cm gallstone without gallbladder distention. No pericholecystic inflammatory changes. PANCREAS: No discrete mass or ductal dilatation. Limited evaluation without intravenous contrast. No CT evidence of pancreatitis. SPLEEN: Unremarkable. ADRENAL GLANDS: No adrenal mass. KIDNEYS AND URETERS: The kidneys are normal in size, shape, and attenuation. No hydronephrosis, hydroureter, or calculi seen. No perinephric stranding. BLADDER: Unremarkable. GASTROINTESTINAL TRACT: Small hiatal hernia. The small and large bowel are normal in caliber. Mild colonic diverticulosis. No acute inflammatory changes. ABDOMINAL WALL: No significant hernia is appreciated. LYMPH NODES: No lymphadenopathy. VASCULAR: No aortic aneurysm. Diffuse arterial wall calcification consistent with chronic kidney disease or diabetes. PELVIC VISCERA: Mildly enlarged prostate. OSSEOUS STRUCTURES: Unremarkable. CT/CT abdomen pelvis wo IV con IMPRESSION: Limited evaluation without intravenous contrast. No visible biliary ductal dilatation. No radiopaque choledocholithiasis. If concern persists, MRI of the abdomen with MRCP is recommended. Cholelithiasis without CT evidence of acute cholecystitis.
--- NOTE | 2024-04-18 11:41 | ED_ITS ---
HPI - General Adult General Chief complaint: Nausea/Vomiting/Diarrhea Stated complaint: Vomiting Time Seen by Provider: 04/18/24 14:13 Source: patient, RN notes reviewed and old records reviewed Mode of arrival: ambulatory Limitations: no limitations History of Present Illness ED Provider: MALIA GALLEGOS PA-C HPI narrative: 58 year old male with pmhx significant for hyponatremia, T2DM, anemia, CHF, PID, HDL, anemia of chronic disease, Parkinson's dementia, and CKD presents to the ED today for evaluation of epigastric/right upper quadrant pain, nausea and vomiting since yesterday. Pain is exacerbated with eating. States he has been unable to eat due to the nausea and vomiting. States he was here last night and had labs drawn however left without completing treatment due to long wait times. Denies fever, chills, sore throat, flank pain, dysuria, hematuria, diarrhea, constipation. Denies known sick contacts. Denies history of abdominal surgery. Related Data Home Medications ?Medication ?Instructions ?Recorded ?Confirmed insulin glargine 100 unit/mL (3 35 unit subcut DAILY 12/22/20 04/18/24 mL) subcutaneous pen (Lantus Solostar U-100 Insulin) insulin lispro 100 unit/mL 14 unit subcut TIDAC 12/22/20 04/18/24 subcutaneous pen (Humalog KwikPen (U-100) Insulin) diphenhydramine HCl 25 mg capsule 25 mg PO BEDTIME 04/18/23 04/18/24 (Benadryl) tamsulosin 0.4 mg capsule 0.4 mg PO DAILY 04/18/23 04/18/24 ziprasidone HCl 60 mg capsule 60 mg PO BID 04/18/23 04/18/24 (Geodon) atorvastatin 80 mg tablet 80 mg PO DAILY 05/23/23 04/18/24 benztropine 0.5 mg tablet 0.5 mg DAILY 10/14/23 04/18/24 trazodone 50 mg tablet 50 - 100 mg PO BEDTIME PRN Insomnia 10/14/23 04/18/24 gabapentin 100 mg capsule 100 mg PO BID 11/10/23 04/18/24 dulaglutide 3 mg/0.5 mL 3 mg subcut WE 04/18/24 04/18/24 subcutaneous pen injector (Trulicfranklin) Previous Rx's ?Medication ?Instructions ?Recorded ferrous sulfate 325 mg (65 mg 325 mg PO DAILY #90 tabs 01/23/24 iron) tablet amlodipine 10 mg tablet 10 mg PO DAILY #30 tabs 02/14/24 bumetanide 2 mg tablet 2 mg PO BID #60 tabs 02/14/24 carvedilol 6.25 mg tablet 6.25 mg PO BID #60 tabs 02/14/24 hydralazine 50 mg tablet 150 mg PO BID #180 tabs 02/14/24 Allergies Allergy/AdvReac Type Severity Reaction Status Date / Time No Known Allergies Allergy Verified 04/18/24 11:30 [No Known Allergies*] Review of Systems 2 Review of Systems: Constitutional: No fever, chills, fatigue, night sweats, weight changes ENT/Mouth: No ear pain, hearing loss, nasal congestion, sinus pain, rhinorrhea, sore throat Eyes: No eye pain, swelling, redness, vision changes, discharge Cardio: No chest pain, palpitations, GLOVER, orthopnea, peripheral edema Pulm: No SOB, cough, sputum, wheezing, dyspnea, hemoptysis GI: No hematemesis, diarrhea, constipation, hematochezia, melena, +abdominal pain, +nausea, +vomiting : No irregular bleeding, dysuria, frequency, urgency, hesitancy, hematuria, flank pain, urinary flow changes, urinary incontinence or retention MSK: No back pain, neck pain, joint pain, myalgias Skin: No lesions, rashes Neuro: No weakness, numbness, paresthesias, LOC, dizziness, headache Psych: No anxiety/panic, depression, SI/HI, AH/VH All other systems reviewed and are negative. [facility] Past Medical History Attestation statement: The following information was validated with the patient. Source: old records reviewed and nursing notes reviewed Medical History Anemia Congestive heart failure Nephrotic syndrome Diastolic heart failure Anemia Pneumonia Diabetic nephropathy Anemia Chronic pain syndrome Diabetic polyneuropathy Vitamin D deficiency Depression HTN (hypertension) HLD (hyperlipidemia) T2DM (type 2 diabetes mellitus) Surgical History Status post biopsy of kidney Hx of colonoscopy Hx of rotator cuff surgery Family History Family History Father Colon cancer Mother History of kidney problems T2DM (type 2 diabetes mellitus) Sister T2DM (type 2 diabetes mellitus) Social History Social History Household Members: Family Household Members Other:: 2 Housing: Apartment Do you presently have visiting nurse or other home services: Yes (1/wk) Alcohol intake: former Comment: allowed to walk in room Patient Tobacco Use Status: Never used Tobacco Second Hand Smoke Exposure: No Substance Use Type: Crack/Cocaine Advance Directives Date on File: 04/28/23 service: No Current occupational status: disabled Current occupation: right handed Physical Exam ED Vital Signs: Vital Signs - 24 hr 04/18/24 15:20 04/18/24 16:13 Temperature 98.7 F Pulse Rate 87 Respiratory Rate 16 16 Blood Pressure 173/76 H Pulse Oximetry 97 BMI result Body Mass Index 22.4 vital signs stable Const General: cooperative and no acute distress Orientation/consciousness: patient oriented x3 Limitations: no limitations HENMT Head: Yes normal to inspection, Yes No palpable skull fracture present, Yes normocephalic and Yes atraumatic Eyes Other: sclera anicteric Neck Neck: Yes normal visual inspection, Yes full ROM and Yes no lymphadenopathy Resp Effort & Inspection: normal respiratory effort and able to speak in complete sentences Auscultation: clear to auscultation bilaterally Cardio Rate: regular rate Rhythm: regular rhythm GI Other: + slightly distended, tender to palpation of the epigastric region and left upper quadrant with positive Lanza's sign. Normoactive bowel sounds x4 General: Yes no CVA tenderness Back/Spine/Pelvis Back: no CVA tenderness Skin General skin exam: jaundice Neuro General: patient oriented x3, gait normal and moves all extremities Extrem General: Yes normal to inspection Course Course Course Narrative: This is an RME done by FLY Sanchez: Additional HPI, ROS, PE not included below will be deferred to primary provider. 58 yo m hx of hyponatremnia, dm, anemia, CHF, pad, hld presenting w/ complaints of epigastric/LUQ pain, nausea, vomitng since yesterday. Was here last night had labs but left w/o completing treatment. States he cant even eat ice cream. Appearance: Alert.? Oriented X3.? No acute cardiopulmonary distress distress.? Head: Normocephalic, atraumatic, no step-offs or deformities CVS: Pulses normal.? Respiratory: No respiratory distress.? Abdomen: Soft and + ttp epigastri and LUQ.? Skin: ? Normal skin color. Extremities: 5/5 strength to bilateral upper and lower extremities Neuro: Oriented X 3.? No motor deficit.? No sensory deficit. Reevaluation(s) Reevaluation #1: 1430-- CBC without leukocytosis. Chronic anemia secondary to CKD. H&H 07/12. Chemistry without acute electrolyte abnormality requiring intervention. BUN and creatinine elevated to 57 and 3.7. He states that he does not currently require dialysis and makes his own urine. Random glucose 270. Elevated bilirubin to 3.4, AST to 53, ALT 405, alk phos 735. Official read from abdominal ultrasound not back yet however common bile duct is not clearly seen. CT scan abdomen/pelvis without contrast ordered to rule out choledocho. > patient receiving IVF, morphine, and zofran. 161-- ultrasound of abdomen showing cholelithiasis with to gallstones measuring up to 1.9 cm. Adenomyomatosis of gallbladder wall. Positive sonographic Lanza's sign concerning for cholecystitis. The common bile duct is unable to be visualized. No obvious secondary evidence of cholecystitis. CT abdomen/pelvis without biliary ductal dilation however there is a 1.9 cm gallstone without gallbladder distension. No pericholecystic inflammatory changes. MRI of the abdomen with MRCP is recommended. I did reach out to talk to him as you go with general surgery who recommends admission to medicine for further workup. Will reach out to hospitalist. 1630-- Spoke with hospitalist Dr. Rubi who has accepted patient admission for acute cholecystitis and choledocholithiasis with obstructive jaundice. Medications Administered Generic Name Dose Route Start Last Admin Trade Name Freq PRN Reason Stop Dose Admin Amlodipine Besylate 10 mg 04/19/24 09:00 04/19/24 07:57 Amlodipine Besylate 10 Mg Tablet PO 10 mg DAILY BRENNEN Administration Protocol Atorvastatin Calcium 80 mg 04/19/24 09:00 04/19/24 07:57 Atorvastatin Calcium 80 Mg Tablet PO 80 mg DAILY BRENNEN Administration Benztropine Mesylate 0.5 mg 04/19/24 09:00 04/19/24 07:57 Benztropine Mesylate 0.5 Mg Tablet PO 0.5 mg DAILY [facility] Administration Bumetanide 2 mg 04/18/24 21:00 04/19/24 07:57 Bumetanide 1 Mg Tablet PO 2 mg BID [facility] Administration Protocol Carvedilol 6.25 mg 04/18/24 21:00 04/19/24 07:57 Carvedilol 6.25 Mg Tablet PO 6.25 mg BID [facility] Administration Protocol Diphenhydramine HCl 25 mg 04/18/24 21:00 04/18/24 21:03 Diphenhydramine Hcl 25 Mg Capsule PO 25 mg BEDTIME [facility] Administration Ferrous Sulfate 324 mg 04/19/24 09:00 04/19/24 07:57 Ferrous Sulfate 324 Mg Tablet.Dr PO 324 mg DAILY [facility] Administration Gabapentin 100 mg 04/18/24 21:00 04/19/24 07:57 Gabapentin 100 Mg Capsule PO 100 mg BID [facility] Administration Hydralazine HCl 150 mg 04/18/24 21:00 04/19/24 07:57 Hydralazine Hcl 50 Mg Tablet PO 150 mg BID [facility] Administration Protocol Piperacillin Sod/Tazobactam 100 mls @ 200 mls/hr 04/18/24 17:00 04/19/24 16:29 Sod 4.5 gm/ Sodium Chloride IV Infused Q12H [facility] Infusion Insulin Human Lispro 0 unit 04/18/24 21:00 04/19/24 16:28 Insulin Lispro 100 Unit/Ml 3 Ml Vial SUBCUT Not Given QIDACHS [facility] Protocol Morphine Sulfate 4 mg 04/18/24 16:46 04/19/24 12:06 Morphine Sulfate 4 Mg/Ml Cartridge IVPUSH 4 mg Q4H PRN Administration Pain, Severe (Pain Scale 7-10) Protocol Ondansetron HCl 4 mg 04/18/24 16:46 04/19/24 05:55 Ondansetron Hcl 4 Mg/2 Ml Vial IVPUSH 4 mg Q8H PRN Administration Nausea and Vomiting Oxycodone HCl 5 mg 04/18/24 17:08 04/18/24 17:46 Oxycodone Hcl Immed Release 5 Mg Tablet PO 5 mg Q6H PRN Administration Pain, Moderate(Pain Scale 4-6) Sodium Chloride 3 ml 04/19/24 00:00 04/19/24 20:05 0.9 % Sodium Chloride Flush 3 Ml Syringe IVFLUSH 3 ml QSHIFT [facility]ENNEN Administration Tamsulosin HCl 0.4 mg 04/19/24 09:00 04/19/24 07:57 Tamsulosin Hcl 0.4 Mg Capsule PO 0.4 mg DAILY [facility] Administration Trazodone HCl 50 mg 04/18/24 19:10 04/18/24 21:01 Trazodone Hcl 50 Mg Tablet PO 50 mg BEDTIME MRX1 PRN Administration Insomnia Ziprasidone 60 mg 04/18/24 21:00 04/19/24 07:57 Ziprasidone 60 Mg Capsule PO 60 mg BID BRENNEN Administration Discontinued Medications Generic Name Dose Route Start Last Admin Trade Name Freq PRN Reason Stop Dose Admin Acetaminophen 650 mg 04/19/24 15:18 04/19/24 15:52 Acetaminophen 325 Mg Tablet PO 04/19/24 15:19 650 mg ONCE ONE Administration Bumetanide 2 mg 04/19/24 15:22 04/19/24 20:05 Bumetanide 1 Mg/4 Ml Vial IVPUSH 04/19/24 15:23 2 mg ONCE ONE Administration Protocol Diphenhydramine HCl 25 mg 04/19/24 15:45 04/19/24 15:52 Diphenhydramine Hcl 25 Mg Capsule PO 04/19/24 15:46 25 mg ONCE ONE Administration Sodium Chloride 1,000 mls @ 999 mls/hr 04/18/24 14:30 04/18/24 15:35 Ns IV 04/18/24 15:30 Infused .Q1H1M [facility] Infusion Sodium Chloride 100 mls @ 100 mls/hr 04/19/24 14:51 04/19/24 17:14 Ns IV 04/19/24 15:50 Infused ONCE ONE Infusion Insulin Glargine 25 unit 04/19/24 09:00 04/19/24 07:58 Insulin Glargine,Hum.Rec.Anlog 100 Unit/Ml 10 Ml Vial SUBCUT Not Given DAILY BRENNEN Morphine Sulfate 2 mg 04/18/24 14:22 04/18/24 14:39 Morphine Sulfate 2 Mg/Ml Cartridge IVPUSH 04/18/24 14:23 2 mg ONCE ONE Administration Protocol Ondansetron HCl 4 mg 04/18/24 14:20 04/18/24 14:39 Ondansetron Hcl 4 Mg/2 Ml Vial IVPUSH 04/18/24 14:21 4 mg ONCE ONE Administration Medical Decision Making Medical Decision Making [facility] Narrative: 58 year old male with pmhx significant for hyponatremia, T2DM, anemia, CHF, PID, HDL, anemia of chronic disease, Parkinson's dementia, and CKD presents to the ED today for evaluation of epigastric/right upper quadrant pain, nausea and vomiting since yesterday. Patient hypertensive to 189/83, vitals otherwise WNL. No acute distress. He is jaundiced. Abdomen slightly distended, tender to palpation of the epigastric region and left upper quadrant with positive Lanza's sign. Normoactive bowel sounds x4. No CVAT b/l. Differential diagnosis includes acute cholecystitis, cholelithiasis, choledocholithiasis, obstructive jaundice, pancreatitis. Lower suspicion for appendicitis, SBO. Plan for labs, UA, UDS, abdominal ultrasound, pain control, re-evaluation. Differential Diagnosis Differential Diagnoses: The differential diagnosis associated with the presentation includes as above. Admission/Observation not indicated. Consult Healthcare Provider Management of the patient was discussed with: Hospitalist (Dr. Rubi) and Cream Cheese Maker (Dr. Rosenbaum (general surgery)) Lab Data [facility] Lab Attestation statement: I reviewed the patient's lab results. as above. 04/19/24 14:18 04/19/24 05:46 Labs: Lab Results 04/18/24 04/18/24 04/18/24 Range/Units 12:05 12:29 16:19 WBC 10.5 (4.8-10.8) X10*3/uL RBC 2.66 L (4.60-5.80) X10*6/uL Hgb 8.0 L (14.0-18.0) g/dl Hct 22.0 L (42.0-52.0) % MCV 82.7 (80.0-98.0) fL MCH 30.1 (27.0-33.0) pg MCHC 36.4 H (31.0-36.0) g/dl RDW 15.4 (11.0-16.0) % Plt Count 198 (160-400) X10*3/uL MPV 9.7 (9.4-12.4) fL Immature Gran % (Auto) 0.3 (0.0-0.4) % Neut % (Auto) 83.3 H (45-73) % Lymph % (Auto) 11.0 L (20-40) % Crosby % (Auto) 5.2 (2-11) % Eos % (Auto) 0.0 (0-4) % Baso % (Auto) 0.2 (0-2) % Lymph # (Auto) 1.2 (1.2-4.9) X10*3/uL Crosby # (Auto) 0.5 (0.1-1.2) X10*3/uL Eos # (Auto) 0.0 (0.0-0.4) X10*3/uL Baso # (Auto) 0.0 (0.0-0.2) X10*3/uL Abs Immat Gran (auto) 0.03 (0.00-0.03) X10*3/uL Absolute Neuts (auto) 8.7 H (2.0-8.3) x10*3/uL Absolute Nucleated RBC 0.000 (0.0-0.012) X10*3/uL Nucleated RBC % (auto) 0.0 (0.0-0.2) /100WBC Sodium 136 (135-145) mmol/L Potassium 4.2 (3.3-5.1) mmol/L Chloride 108 (96-108) mmol/L Carbon Dioxide 16 L (22-29) mmol/L Anion Gap 16 (12-20) BUN 57 H (9-16) mg/dL Creatinine 3.70 H (0.5-1.4) mg/dL Estim Creat Clear Calc 17.9 Estimated GFR 17 Random Glucose 270 H (60-115) mg/dL Calcium 8.9 (8.4-10.2) mg/dL Magnesium 2.5 (1.6-2.6) mg/dL Total Bilirubin 3.4 H (0.0-1.0) mg/dL Direct Bilirubin 2.8 H (0.0-0.5) mg/dL AST 253 H (5-37) U/L ALT 405 H (0-40) U/L Alkaline Phosphatase 755 H (39-117) U/L Total Protein 7.3 (6.5-8.0) g/dL Albumin 3.6 (3.5-5.0) g/dL Lipase 25 (8-78) U/L Urine Color Yellow Urine Appearance Clear Urine pH 6.0 (5.0-9.0) Ur Specific [place] 1.015 (1.005-1.025) Urine Protein 300 (3+) H (Neg-Trace) mg/dL Urine Glucose (UA) 500 H (Negative) mg/dL Urine Ketones Negative (Negative) mg/dL Urine Blood Negative (Negative) Urine Nitrite Negative (Negative) Ur Leukocyte Esterase Negative (Negative) Urine RBC 0-2 (0-2) /HPF Urine WBC 0-5 (0-5) /HPF Ur Squamous Epith Cells 0-2 (0-2) /HPF Urine Bacteria None Seen (None Seen) Hyaline Casts 0-2 (0-2) /LPF Urine Opiates Screen Not Detected (Not Detect) Ur Buprenorphine Scrn Not Detected (Not Detect) ng/mL Ur Oxycodone Screen Not Detected (Not Detect) ng/mL Urine Methadone Screen Not Detected (Not Detect) ng/mL Urine Fentanyl Screen Not Detected (Not Detect) Ur Barbiturates Screen Not Detected (Not Detect) Ur Phencyclidine Scrn Not Detected (Not Detect) Ur Amphetamines Screen Not Detected (Not Detect) U Benzodiazepines Scrn Not Detected (Not Detect) Urine Cocaine Screen POSITIVE H (Not Detect) U Marijuana (THC) Screen Not Detected (Not Detect) Influenza Type A (PCR) NEGATIVE (Negative) Influenza Type B (PCR) NEGATIVE (Negative) RSV RNA Qual (PCR) NEGATIVE (Negative) SARS-CoV-2 RNA (RT-PCR) NEGATIVE (Negative) S. pyogenes GrpA FILIPE Negative (Negative) Independent Interpretation I performed an independent interpretation of an: Ultrasound and CT Scan Interpretation: Abdominal ultrasound showing cholelithiasis, agree with radiologist's interpretation. Ct abd/pelvis showing gallstones, agree with radiologist's interpretation. Radiology Impression Discussion of test interpretation with radiology: I have reviewed the radiologist's reading. Radiologist Impression: EXAMINATION: US ABDOMEN LIMITED CLINICAL INFORMATION: Right upper quadrant pain, vomiting, elevated bili. Evaluate liver, gallbladder, common bile duct. COMPARISON: CT abdomen 11/05/2023. TECHNIQUE: Real-time imaging of the liver, gallbladder, common bile duct. FINDINGS: LIVER: Normal. The liver is normal in size. The liver contour is normal. Parenchymal echogenicity is normal. No focal hepatic lesion. There is no intrahepatic biliary duct dilatation seen. GALLBLADDER: 2 gallstones measuring up to 1.9 cm. Adenomyomatosis of the gallbladder wall. No pericholecystic fluid. The patient was tender in the right upper quadrant. COMMON BILE DUCT: Not visualized. FREE FLUID: None. US/US abdomen limited IMPRESSION: Normal-appearing liver. Nonvisualization of the common bile duct. No intrahepatic biliary ductal dilatation. Cholelithiasis and tenderness in the right upper quadrant are consistent with acute cholecystitis, however no secondary evidence of cholecystitis on this exam (mural edema or pericholecystic fluid). Clinical correlation is necessary. EXAMINATION: CT ABDOMEN AND PELVIS WITHOUT CONTRAST CLINICAL INFORMATION: Epigastric and right upper quadrant abdominal pain, elevated bili, rule out choledoco COMPARISON: Abdominal ultrasound 04/18/2024, CT abdomen and pelvis 11/05/2023. TECHNIQUE: Multidetector volumetric imaging was performed from the superior aspect of the liver through the pubic symphysis. Sagittal and coronal reformatted images were obtained on the technologist's workstation. This CT examination was performed using dose optimization techniques as appropriate, variously including the following: *Automated exposure control *Adjustment of mA and/or kV according to patient size (this includes techniques or standardized protocols for targeted exams where dose is matched to indication/reason for exam; i.e. extremities or head) *Use of iterative reconstruction technique DLP: 384 mGy-cm FINDINGS: LUNG BASES: No suspicious lung nodules. Mosaic attenuation and airway wall thickening suggesting chronic airways disease. LIVER, GALLBLADDER, AND BILIARY TREE: The liver is normal in size and noncontrast attenuation. Evaluation for biliary ductal dilatation is limited without intravenous contrast. No definite intrahepatic or extrahepatic biliary ductal dilatation is seen. No radiopaque choledocholithiasis. 1.9 cm gallstone without gallbladder distention. No pericholecystic inflammatory changes. PANCREAS: No discrete mass or ductal dilatation. Limited evaluation without intravenous contrast. No CT evidence of pancreatitis. SPLEEN: Unremarkable. ADRENAL GLANDS: No adrenal mass. KIDNEYS AND URETERS: The kidneys are normal in size, shape, and attenuation. No hydronephrosis, hydroureter, or calculi seen. No perinephric stranding. BLADDER: Unremarkable. GASTROINTESTINAL TRACT: Small hiatal hernia. The small and large bowel are normal in caliber. Mild colonic diverticulosis. No acute inflammatory changes. ABDOMINAL WALL: No significant hernia is appreciated. LYMPH NODES: No lymphadenopathy. VASCULAR: No aortic aneurysm. Diffuse arterial wall calcification consistent with chronic kidney disease or diabetes. PELVIC VISCERA: Mildly enlarged prostate. OSSEOUS STRUCTURES: Unremarkable. CT/CT abdomen pelvis wo IV con IMPRESSION: Limited evaluation without intravenous contrast. No visible biliary ductal dilatation. No radiopaque choledocholithiasis. If concern persists, MRI of the abdomen with MRCP is recommended. Cholelithiasis without CT evidence of acute cholecystitis. External Record Review External record reviewed: Inpatient record, Office record, Outpatient record, Prior outpatient labs, Prior outpatient radiology, Primary care record and Outside ED record Prescription Management I considered prescription management with: Pain Medication Chronic Conditions Patient?s care impacted by: Diabetes and Other (CKD) Social Determinants Patient?s care significantly limited by Social Determinants of Health including: Other Social Determinant of Health Critical Care Time Critical Care Time Critical Care Time: Yes Total Critical Care Time: 45 Attestation: labs, fluids, imaging, consult, pain control with response I attest to this time spent taking care of the patient Discharge Plan Discharge Clinical Impression: CKD (chronic kidney disease), Anemia due to chronic kidney disease, Choledocholithiasis, Obstructive jaundice, Acute cholecystitis Patient Disposition: Admitted As Inpatient Interventions: Admission Worksheet (ED) Last Done: 04/18/24 19:46 Discharge Date/Time: 04/18/24 20:29
[2024-04-18 12:13] LABS: MANUAL DIFF FLAG NO
[2024-04-18 12:15] LABS: Basophils Percent Auto 0.2 % (0-2); Imm Gran Abs Auto 0.03 X10*3/uL (0.00-0.03); Imm Gran Pct Auto 0.3 % (0.0-0.4); Lymphocytes Absolute Auto 1.2 X10*3/uL (1.2-4.9); Mean Corpuscular HGB Conc 36.4 g/dl (31.0-36.0); Mean Corpuscular Hemoglobin 30.1 pg (27.0-33.0); Mean Corpuscular Volume 82.7 fL (80.0-98.0); Mean Platelet Volume 9.7 fL (9.4-12.4); Monocytes Absolute Auto 0.5 X10*3/uL (0.1-1.2); Monocytes Percent Auto 5.2 % (2-11); Neutrophils Absolute Auto 8.7 x10*3/uL (2.0-8.3); Neutrophils Percent Auto 83.3 % (45-73); Platelet Count 198 X10*3/uL (160-400); Red Blood Count 2.66 X10*6/uL (4.60-5.80); Red Cell Distribution Width 15.4 % (11.0-16.0); White Blood Count 10.5 X10*3/uL (4.8-10.8)
[2024-04-18 12:30] LABS: Alanine Aminotransferase 405 U/L (0-40); Albumin Level 3.6 g/dL (3.5-5.0); Alkaline Phosphatase 755 U/L (39-117); Anion Gap 16 (12-20); Aspartate Amino Transferase 253 U/L (5-37); Bilirubin Total 3.4 mg/dL (0.0-1.0); Blood Urea Nitrogen 57 mg/dL (9-16); Calcium 8.9 mg/dL (8.4-10.2); Carbon Dioxide 16 mmol/L (22-29); Chloride 108 mmol/L (96-108); Creatinine Clr Calc Pharmacy 17.9; Estimated Glomerular Filt Rate 17; Glucose Random 270 mg/dL (60-115); Lipase 25 U/L (8-78); Magnesium 2.5 mg/dL (1.6-2.6); Potassium 4.2 mmol/L (3.3-5.1); Sodium 136 mmol/L (135-145); Total Protein 7.3 g/dL (6.5-8.0)
[2024-04-18 13:03] LABS: IDNOW Serial# 08D9AD1C; Strep A Nucleic Acid Negative (Negative)
[2024-04-18 13:39] LABS: Influenza A PCR NEGATIVE (Negative); Influenza B PCR NEGATIVE (Negative); Resp Syncy Virus RNA Qual PCR NEGATIVE (Negative); SARS COV2 PCR INHOUSE NEGATIVE (Negative)
[2024-04-18] MEDS: 0.9 % Sodium Chloride 1,000 ML 999 ML IV (14:38)
[2024-04-18] MEDS: Morphine Sulfate 2 MG/ML CARTRIDGE IVPUSH (14:39)
[2024-04-18] MEDS: ondansetron HCL 4 MG/2 ML VIAL IVPUSH ×2 (14:39→17:47)
[2024-04-18 16:26] LABS: Appearance Urine Clear; Glucose Urine UA 500 mg/dL (Negative); Leukocyte Esterase Urine Negative (Negative); Nitrite Urine Negative (Negative); Specific Gravity - Urine 1.015 (1.005-1.025); UMIC TRIGGER UACC YES; Urine Blood Negative (Negative); Urine Ketones Negative (Negative); Urine Protein 300 (3+) mg/dL (Neg-Trace)
[2024-04-18 16:41] LABS: Color Urine Yellow
[2024-04-18 16:59] LABS: Bacteria Urine None Seen (None Seen); Hyaline Casts Urine 0-2 /LPF (0-2); RBC Urine 0-2 /HPF (0-2); Squamous Epithelial Cell Urine 0-2 /HPF (0-2); WBC Urine 0-5 /HPF (0-5)
--- NOTE | 2024-04-18 17:12 | P.HPHOSP_ITS ---
History of Present Illness Date of Service: 04/18/24 Attending physician on admission: Fadia Rubi Chief Complaint: abd pain, n/v 57 year old male with chronic normocytic anemia, htn, hld, diabetic polyneuropathy, diabetic nephropathy, chronic pain syndrome, insulin dependent type 2 diabetes, cocaine abuse, nephrotic syndrome, CKD stage 4, diastolic heart failure, and depression presented to the ED today for evaluation of severe RUQ pain with associated nausea, vomiting, and anorexia ongoing x 3 days. Denies radiation of the pain. Primarily located in RUQ but reports mild diffuse discomfort. No fevers, chills, melena, hematochezia, hematemesis, urinary symptoms, shortness of breath, cough, chest pain. He denies any ongoing substance use including cocaine. Denies alcohol use or cigarette smoking. Denies eating any bad foods. No one at home with similar symptoms. On arrival, vital signs stable however hypertensive to 173/76 on admission, likely complicated by pain. There is no leukocytosis or fevers. Renal function baseline, electrolyte levels normal except CO2 16. VBG pending. Total bilirubin 3.4, direct bilirubin pending, AST 253, ALT 405, alkaline phosphatase 755. Urinalysis with 3+ protein and glucose but otherwise unremarkable. Urine drug screen pending. Negative for COVID-19, RSV, influenza, and strep pyogenes. CT abdomen/pelvis negative for visible biliary ductal dilatation and no radiopaque choledocholithiasis. abdominal ultrasound shows normal-appearing liver and nonvisualization of the common bile duct without any intrahepatic biliary ductal dilatation. There is also cholelithiasis and findings consistent with acute cholecystitis and positive sonographic Lanza's sign but no mural edema or pericholecystic fluid. In the ED, has been given IV morphine and ondansetron. He will be admitted for further management of acute cholecystitis and choledocholithiasis with obstructive jaundice. Review of Systems 2 Review of Systems: Yes all other systems are reviewed and are negative [facility] Medical History Anemia Congestive heart failure Nephrotic syndrome Diastolic heart failure Anemia Pneumonia Diabetic nephropathy Anemia Chronic pain syndrome Diabetic polyneuropathy Vitamin D deficiency Depression HTN (hypertension) HLD (hyperlipidemia) T2DM (type 2 diabetes mellitus) Family History Father Colon cancer Mother History of kidney problems T2DM (type 2 diabetes mellitus) Sister T2DM (type 2 diabetes mellitus) Surgical History Status post biopsy of kidney Hx of colonoscopy Hx of rotator cuff surgery Social History Household Members: None Housing: Apartment Do you presently have visiting nurse or other home services: No ([employer] service 13/06) Alcohol intake: former Comment: allowed to walk in room Patient Tobacco Use Status: Never used Tobacco Smoked in Last 30 Days: No Use of substances other than those prescribed or required for medical reasons: No Substance Use Type: Crack/Cocaine Advance Directives: Yes Advance Directives on File: Yes Advance Directives Date on File: 04/28/23 service: No Current occupational status: disabled Current occupation: right handed Meds Allergies Allergy/AdvReac Type Severity Reaction Status Date / Time No Known Allergies Allergy Verified 04/18/24 11:30 [No Known Allergies*] Active Medications: Current Medications Acetaminophen (Acetaminophen 325 Mg Tablet) 650 mg PO Q6H PRN PRN Reason: Pain, Mild, h/a, fever Piperacillin Sod/Tazobactam (Sod 4.5 gm/ Sodium Chloride) 100 mls @ 200 mls/hr IV Q12H BRENNEN Magnesium Hydroxide (Milk Of Magnesia 30 Ml Oral.Susp) 30 ml PO DAILY PRN PRN Reason: Constipation Morphine Sulfate (Morphine Sulfate 4 Mg/Ml Cartridge) 4 mg IVPUSH Q4H PRN; Protocol PRN Reason: Pain, Severe (Pain Scale 7-10) Ondansetron HCl (Ondansetron Hcl 4 Mg/2 Ml Vial) 4 mg IVPUSH Q8H PRN PRN Reason: Nausea and Vomiting Oxycodone HCl (Oxycodone Hcl Immed Release 5 Mg Tablet) 5 mg PO Q6H PRN PRN Reason: Pain, Moderate(Pain Scale 4-6) Sodium Chloride (0.9 % Sodium Chloride Flush 3 Ml Syringe) 3 ml IVFLUSH QSHIFT BRENNEN Home Medications ?Medication ?Instructions ?Recorded ?Confirmed ?Last Taken ?Type insulin glargine 100 unit/mL (3 25 unit subcut DAILY 12/22/20 02/14/24 01/30/23 History mL) subcutaneous pen (Lantus Solostar U-100 Insulin) insulin lispro 100 unit/mL 15 unit subcut TIDAC 12/22/20 02/14/24 11/10/23 History subcutaneous pen (Humalog KwikPen (U-100) Insulin) diphenhydramine HCl 25 mg capsule 25 mg PO BEDTIME 04/18/23 02/14/24 11/09/23 History (Benadryl) tamsulosin 0.4 mg capsule 0.4 mg PO DAILY 04/18/23 02/14/24 11/10/23 History ziprasidone HCl 60 mg capsule 60 mg PO BID 04/18/23 02/14/24 11/10/23 History (Geodon) atorvastatin 80 mg tablet 80 mg PO DAILY 05/23/23 02/14/24 11/10/23 History benztropine 0.5 mg tablet 0.5 mg DAILY 10/14/23 02/14/24 11/10/23 History trazodone 50 mg tablet 50 - 100 mg PO BEDTIME PRN Insomnia 10/14/23 02/14/24 Unknown History gabapentin 100 mg capsule 100 mg PO BID 11/10/23 02/14/24 11/10/23 History dulaglutide 3 mg/0.5 mL 3 mg subcut QWEEK 04/18/24 04/18/24 04/11/24 History subcutaneous pen injector (Trulicity) Physical Exam 2 Vital Signs and Narrative: Vital Signs: Last Vital Signs Temp 98.7 F 04/18/24 16:13 Pulse 87 04/18/24 16:13 Resp 16 04/18/24 16:13 BP 173/76 H 04/18/24 16:13 Pulse Ox 97 04/18/24 16:13 O2 Del Method Room Air 04/18/24 14:18 BMI result Body Mass Index 22.4 Constitutional - Awake and Alert, No apparent distress Eyes - PERRLA, EOMI Cardiovascular - S1S2, RRR, No edema Respiratory - Normal lung expansion, Normal respiratory effort, No respiratory distress, CTA bilaterally Gastrointestinal - Significant RUQ with +lanza sign and guarding, no rigidity. Mild diffuse tenderness otherwise. ND; +BS Extremities - no calf tenderness bilaterally, no swelling Skin - Warm/Dry. Slight jaundice, no scleral icterus Neurological - Alert & oriented x3 Psychological - Appropriate affect Results Labs 04/18/24 12:05 04/18/24 12:05 Labs: Laboratory Results - last 24 hr 04/18/24 04/18/24 04/18/24 12:05 12:29 16:19 MCV 82.7 MCH 30.1 MCHC 36.4 H RDW 15.4 Plt Count 198 MPV 9.7 Immature Gran % (Auto) 0.3 Neut % (Auto) 83.3 H Lymph % (Auto) 11.0 L [place] % (Auto) 5.2 Eos % (Auto) 0.0 Baso % (Auto) 0.2 Lymph # (Auto) 1.2 [place] # (Auto) 0.5 Eos # (Auto) 0.0 Baso # (Auto) 0.0 Abs Immat Gran (auto) 0.03 Absolute Neuts (auto) 8.7 H Absolute Nucleated RBC 0.000 Nucleated RBC % (auto) 0.0 Anion Gap 16 Estim Creat Clear Calc 17.9 Estimated GFR 17 Random Glucose 270 H Calcium 8.9 Magnesium 2.5 Total Bilirubin 3.4 H AST 253 H ALT 405 H Alkaline Phosphatase 755 H Total Protein 7.3 Albumin 3.6 Lipase 25 Urine Color Yellow Urine Appearance Clear Urine pH 6.0 Ur Specific [place] 1.015 Urine Protein 300 (3+) H Urine Glucose (UA) 500 H Urine Ketones Negative Urine Blood Negative Urine Nitrite Negative Ur Leukocyte Esterase Negative Urine RBC 0-2 Urine WBC 0-5 Ur Squamous Epith Cells 0-2 Urine Bacteria None Seen Hyaline Casts 0-2 Influenza Type A (PCR) NEGATIVE Influenza Type B (PCR) NEGATIVE RSV RNA Qual (PCR) NEGATIVE SARS-CoV-2 RNA (RT-PCR) NEGATIVE S. pyogenes GrpA FILIPE Negative Imaging Radiologist's Impressions: Impressions Abdomen Ultrasound 04/18/24 13:04 IMPRESSION: Normal-appearing liver. Nonvisualization of the common bile duct. No intrahepatic biliary ductal dilatation. Cholelithiasis and tenderness in the right upper quadrant are consistent with acute cholecystitis, however no secondary evidence of cholecystitis on this exam (mural edema or pericholecystic fluid). Clinical correlation is necessary. Abdomen/Pelvis CT 04/18/24 14:57 IMPRESSION: Limited evaluation without intravenous contrast. No visible biliary ductal dilatation. No radiopaque choledocholithiasis. If concern persists, MRI of the abdomen with MRCP is recommended. Cholelithiasis without CT evidence of acute cholecystitis. Assessment and Plan (1) Acute cholecystitis: Status: Acute (2) Choledocholithiasis: Status: Acute Plan 57 year old male with chronic normocytic anemia, htn, hld, diabetic polyneuropathy, diabetic nephropathy, chronic pain syndrome, insulin dependent type 2 diabetes, cocaine abuse, nephrotic syndrome, CKD stage 4, diastolic heart failure, and depression admitted for further management of acute cholecystitis/choledocholithiasis with obstructive jaundice. #acute cholecystitis/choledocholithiasis with obstructive jaundice -CT abdomen/pelvis negative for visible biliary ductal dilatation and no radiopaque choledocholithiasis. abdominal ultrasound shows normal-appearing liver and nonvisualization of the common bile duct without any intrahepatic biliary ductal dilatation. There is also cholelithiasis and findings consistent with acute cholecystitis and positive sonographic Lanza's sign but no mural edema or pericholecystic fluid. -No leukocytosis or fevers. No sepsis -total bilirubin 3.4, direct bilirubin pending. AST 253, ALT for 0 5, alkaline phosphatase of 55 -renally dosed IV Zosyn (initiate 04/18) -Clear liquid diet, NPO after midnight -MRCP am -pain management prn, antiemetics prn -general surgery consult -follow cbc, cultures # insulin-dependent type 2 diabetes with hyperglycemia -last hemoglobin A1c 6.7% -dose adjusted basal insulin -POC glucose, Admelog sliding scale. Advance to diabetic diet # CKD stage 4 -renal function baseline # heart failure preserved ejection fraction -clinically euvolemic, fluid restrictions to 1.5 L, advanced to low-sodium diet -cotnineu po bumex #HTN -Continue amlodipine, carvedilol, hydralazine -Follow BPs #Cocaine abuse -Utox pending -consider addiction med consult if needed # anemia of chronic disease -H/H above transfusion threshold, baseline DVT prophylaxis- heparin Full code Pt requires inpt stay at least 2 midnights due to acute cholecystitis and choledocholithiasis with obstructive jaundice requiring further imaging for further evaluation, IV antibiotics, expert consultation, and possible c surgical intervention Quality Stroke Does the patient have a stroke diagnosis?: No VTE Prior VTE?: No VTE Risk Level:: Medical - moderate - high VTE Device Contraindication: Treatment Not Indicated VTE Drug Contraindication: N/A - Med Ordered
--- NOTE | 2024-04-18 17:24 | PHA.MEDREC ---
Addendum entered by Oriana Tanner [facility] 04/18/24 18:14: Pharmacy claims states gabapentin 300mg QD, however patient states he takes 100mg BID. Patient answered yes when asked if he was still on tramadol, however pharmacy claims and PDMP both state he has not filled since 02/15/24 for a 7 day supply. Original Note: Pharmacy Consult ? Medication Reconciliation Pharmacy has completed the medication reconciliation. Was able to confirm med list with patient to the best of what he could remember and according to the patient he is taking an insulin lispro 14 units 3 times a day after meals and an insulin glargine 35 units daily. Patient is also on Trulicity 3mg which he takes once weekly every Wednesdays.
[2024-04-18] MEDS: Piperacillin Sodium/Tazobactam 4.5 GM in 0.9 % Sodium Chloride 100 ML IV (17:46)
[2024-04-18] MEDS: oxyCODONE HCl Immed Release 5 MG TABLET PO (17:46)
--- NOTE | 2024-04-18 17:53 | PC.NURSE ---
vss and up to date aside from being hypertensive. admitting provider/notified/aware. pt c/o increase in RUQ abd pain. rating it an 8/10. prn medication utilized effectiveness pending. no sob/wob noted. respirations even and unlabored. plan of care ongoing. call grayson placed within reach.
[2024-04-18 18:19] LABS: Bilirubin Direct 2.8 mg/dL (0.0-0.5)
[2024-04-18 18:32] LABS: VBG Base Excess -4.2 mmol/L; VBG HCO3 16 mmol/L (22-26); VBG pCO2 19 mmHg; VBG pH 7.52 (7.32-7.43); VBG pO2 223 mmHg
[2024-04-18 18:35] LABS: Venous Blood Gas Refer to POC result
--- NOTE | 2024-04-18 19:13 | PC.NURSE ---
Assumed care of pt. Pt sitting on side of bed, no acute distress, breathing even and unlabored. Family at bedside. Pt aware of plan of care, including clear liquids until MN, then NPO.
[2024-04-18 19:26] LABS: Amphetamine Screen Urine Not Detected (Not Detect); Barbiturates, Urine Not Detected (Not Detect); Benzodiazepines Screen Urine Not Detected (Not Detect); Buprenorphine Scr Not Detected (Not Detect); Cannabinoid Screen Urine Not Detected (Not Detect); Cocaine Screen Urine POSITIVE (Not Detect); Fentanyl, urine Not Detected (Not Detect); Methadone Screen, Urine Not Detected (Not Detect); Opiate Screen Urine Not Detected (Not Detect); Oxycodone Screen Urine Not Detected (Not Detect); Phencyclidine Screen Urine Not Detected (Not Detect)
[2024-04-18 21:00] LABS: Glucose, Whole Blood 258 mg/dL (60-115)
[2024-04-18] MEDS: traZODone HCL 50 MG TABLET PO (21:01)
[2024-04-18] MEDS: hydrALAZINE HCl 50 MG TABLET 150 MG PO (21:02)
[2024-04-18] MEDS: Gabapentin 100 MG CAPSULE PO (21:03)
[2024-04-18] MEDS: Ziprasidone 60 MG CAPSULE PO (21:03)
[2024-04-18] MEDS: Bumetanide 1 MG TABLET 2 MG PO (21:03)
[2024-04-18] MEDS: Insulin Lispro 100 UNIT/ML 3 ML VIAL SUBCUT (21:03)
[2024-04-18] MEDS: carvediloL 6.25 MG TABLET PO (21:03)
[2024-04-18] MEDS: diphenhydrAMINE HCL 25 MG CAPSULE PO (21:03)
[2024-04-18] MEDS: 0.9 % Sodium Chloride Flush 3 ML SYRINGE IVFLUSH (21:04)
[2024-04-18] MEDS: Morphine Sulfate 4 MG/ML CARTRIDGE IVPUSH (22:05)
[2024-04-19] VITALS (10 sets, daily range): BP systolic 118–158; BP diastolic 56–74; PULSE 79–91; RESP 14–20; TEMP 36.7–37.6; O2SAT 93–98
[2024-04-19] MEDS: Piperacillin Sodium/Tazobactam 4.5 GM in 0.9 % Sodium Chloride 100 ML IV ×2 (04:26→15:52)
[2024-04-19] MEDS: Morphine Sulfate 4 MG/ML CARTRIDGE IVPUSH ×3 (05:52→20:09)
[2024-04-19] MEDS: ondansetron HCL 4 MG/2 ML VIAL IVPUSH ×2 (05:55→20:11)
[2024-04-19 06:22] LABS: MANUAL DIFF FLAG NO
[2024-04-19 06:39] LABS: Basophils Percent Auto 0.3 % (0-2); Eosinophils Percent Auto 0.3 % (0-4); Hemoglobin 7.6 g/dl (14.0-18.0); Imm Gran Abs Auto 0.09 X10*3/uL (0.00-0.03); Imm Gran Pct Auto 0.8 % (0.0-0.4); Lymphocytes Absolute Auto 1.4 X10*3/uL (1.2-4.9); Lymphocytes Percent Auto 12.4 % (20-40); Mean Corpuscular HGB Conc 34.5 g/dl (31.0-36.0); Mean Corpuscular Hemoglobin 28.8 pg (27.0-33.0); Mean Corpuscular Volume 83.3 fL (80.0-98.0); Mean Platelet Volume 9.7 fL (9.4-12.4); Monocytes Absolute Auto 1.3 X10*3/uL (0.1-1.2); Monocytes Percent Auto 12.1 % (2-11); Neutrophils Absolute Auto 8.3 x10*3/uL (2.0-8.3); Neutrophils Percent Auto 74.1 % (45-73); Platelet Count 174 X10*3/uL (160-400); Red Blood Count 2.64 X10*6/uL (4.60-5.80); Red Cell Distribution Width 15.6 % (11.0-16.0); White Blood Count 11.1 X10*3/uL (4.8-10.8)
[2024-04-19 06:45] LABS: Anion Gap 15 (12-20); Blood Urea Nitrogen 50 mg/dL (9-16); Calcium 8.3 mg/dL (8.4-10.2); Carbon Dioxide 16 mmol/L (22-29); Chloride 111 mmol/L (96-108); Estimated Glomerular Filt Rate 17; Glucose Random 150 mg/dL (60-115); Sodium 138 mmol/L (135-145)
[2024-04-19 07:19] LABS: Glucose, Whole Blood 125 mg/dL (60-115)
--- NOTE | 2024-04-19 07:43 | P.CONGS_ITS ---
History of Present Illness Consult details Consult date: 04/19/24 Narrative: Patient is a 58-year-old male with a plethora of medical problems who presents here with a few days' history of epigastric/right upper quadrant abdominal pain. Workup in the emergency department including CT scan ultrasound demonstrate cholelithiasis, and hyperbilirubinemia. Chart was reviewed and patient evaluated Plethora of comorbidities. [facility] Past Medical History Medical History Anemia Congestive heart failure Nephrotic syndrome Diastolic heart failure Anemia Pneumonia Diabetic nephropathy Anemia Chronic pain syndrome Diabetic polyneuropathy Vitamin D deficiency Depression HTN (hypertension) HLD (hyperlipidemia) T2DM (type 2 diabetes mellitus) Family History Family History Father Colon cancer Mother History of kidney problems T2DM (type 2 diabetes mellitus) Sister T2DM (type 2 diabetes mellitus) Surgical History Surgical History Status post biopsy of kidney Hx of colonoscopy Hx of rotator cuff surgery Social History Social History Household Members: Family Household Members Other:: 2 Housing: Apartment Do you presently have visiting nurse or other home services: Yes (1/wk) Alcohol intake: former Comment: allowed to walk in room Patient Tobacco Use Status: Never used Tobacco Second Hand Smoke Exposure: No Substance Use Type: Crack/Cocaine Advance Directives Date on File: 04/28/23 service: No Current occupational status: disabled Current occupation: right handed Meds Allergies Allergy/AdvReac Type Severity Reaction Status Date / Time No Known Allergies Allergy Verified 04/18/24 11:30 [No Known Allergies*] Active Medications: Current Medications Acetaminophen (Acetaminophen 325 Mg Tablet) 650 mg PO Q6H PRN PRN Reason: Pain, Mild, h/a, fever Amlodipine Besylate (Amlodipine Besylate 10 Mg Tablet) 10 mg PO DAILY [facility]; Protocol Atorvastatin Calcium (Atorvastatin Calcium 80 Mg Tablet) 80 mg PO DAILY [facility] Benztropine Mesylate (Benztropine Mesylate 0.5 Mg Tablet) 0.5 mg PO DAILY [facility] Bumetanide (Bumetanide 1 Mg Tablet) 2 mg PO BID [facility]; Protocol Last Admin: 04/18/24 21:03 Dose: 2 mg Carvedilol (Carvedilol 6.25 Mg Tablet) 6.25 mg PO BID [facility]; Protocol Last Admin: 04/18/24 21:03 Dose: 6.25 mg Diphenhydramine HCl (Diphenhydramine Hcl 25 Mg Capsule) 25 mg PO BEDTIME [facility] Last Admin: 04/18/24 21:03 Dose: 25 mg Ferrous Sulfate (Ferrous Sulfate 324 Mg Tablet.Dr) 324 mg PO DAILY [facility] Gabapentin (Gabapentin 100 Mg Capsule) 100 mg PO BID [facility] Last Admin: 04/18/24 21:03 Dose: 100 mg Glucose (Glucose Gel 15 Gm Gel..Gram.) 15 gm PO Q15M PRN; Protocol PRN Reason: per Hypoglycemia Standing Ord. Hydralazine HCl (Hydralazine Hcl 50 Mg Tablet) 150 mg PO BID [facility]; Protocol Last Admin: 04/18/24 21:02 Dose: 150 mg Piperacillin Sod/Tazobactam (Sod 4.5 gm/ Sodium Chloride) 100 mls @ 200 mls/hr IV Q12H [facility] Last Infusion: 04/19/24 04:58 Dose: Infused Dextrose (D10) 250 mls @ 750 mls/hr IV Q15M PRN; Protocol PRN Reason: per Hypoglycemia Standing Ord. Insulin Glargine (Insulin Glargine,Hum.Rec.Anlog 100 Unit/Ml 10 Ml Vial) 25 unit SUBCUT DAILY [facility] Insulin Human Lispro (Insulin Lispro 100 Unit/Ml 3 Ml Vial) 0 unit SUBCUT QIDACHS [facility]; Protocol Last Admin: 04/19/24 07:22 Dose: Not Given Magnesium Hydroxide (Milk Of Magnesia 30 Ml Oral.Susp) 30 ml PO DAILY PRN PRN Reason: Constipation Morphine Sulfate (Morphine Sulfate 4 Mg/Ml Cartridge) 4 mg IVPUSH Q4H PRN; Protocol PRN Reason: Pain, Severe (Pain Scale 7-10) Last Admin: 04/19/24 05:52 Dose: 4 mg Ondansetron HCl (Ondansetron Hcl 4 Mg/2 Ml Vial) 4 mg IVPUSH Q8H PRN PRN Reason: Nausea and Vomiting Last Admin: 04/19/24 05:55 Dose: 4 mg Oxycodone HCl (Oxycodone Hcl Immed Release 5 Mg Tablet) 5 mg PO Q6H PRN PRN Reason: Pain, Moderate(Pain Scale 4-6) Last Admin: 04/18/24 17:46 Dose: 5 mg Sodium Chloride (0.9 % Sodium Chloride Flush 3 Ml Syringe) 3 ml IVFLUSH QSHIFT [facility] Last Admin: 04/18/24 21:04 Dose: 3 ml Tamsulosin HCl (Tamsulosin Hcl 0.4 Mg Capsule) 0.4 mg PO DAILY [facility] Trazodone HCl (Trazodone Hcl 50 Mg Tablet) 50 mg PO BEDTIME MRX1 PRN PRN Reason: Insomnia Last Admin: 04/18/24 21:01 Dose: 50 mg Ziprasidone (Ziprasidone 60 Mg Capsule) 60 mg PO BID [facility] Last Admin: 04/18/24 21:03 Dose: 60 mg Home Medications ?Medication ?Instructions ?Recorded ?Confirmed ?Last Taken ?Type insulin glargine 100 unit/mL (3 35 unit subcut DAILY 12/22/20 04/18/24 04/17/24 History mL) subcutaneous pen (Lantus Solostar U-100 Insulin) insulin lispro 100 unit/mL 14 unit subcut TIDAC 12/22/20 04/18/24 04/17/24 History subcutaneous pen (Humalog KwikPen (U-100) Insulin) diphenhydramine HCl 25 mg capsule 25 mg PO BEDTIME 04/18/23 04/18/24 04/17/24 History (Benadryl) tamsulosin 0.4 mg capsule 0.4 mg PO DAILY 04/18/23 04/18/24 04/17/24 History ziprasidone HCl 60 mg capsule 60 mg PO BID 04/18/23 04/18/24 04/17/24 History (Geodon) atorvastatin 80 mg tablet 80 mg PO DAILY 05/23/23 04/18/24 04/17/24 History benztropine 0.5 mg tablet 0.5 mg DAILY 10/14/23 04/18/24 04/17/24 History trazodone 50 mg tablet 50 - 100 mg PO BEDTIME PRN Insomnia 10/14/23 04/18/24 04/17/24 History gabapentin 100 mg capsule 100 mg PO BID 11/10/23 04/18/24 04/17/24 History dulaglutide 3 mg/0.5 mL 3 mg subcut WE 05/04/18/24 04/11/24 History subcutaneous pen injector (Trulicity) Physical Exam 2 Vital Signs: Vital Signs: Last Vital Signs Temp 98.0 F 04/19/24 07:18 Pulse 87 04/19/24 07:18 Resp 16 04/19/24 07:18 BP 136/65 04/19/24 07:18 Pulse Ox 97 04/19/24 07:18 O2 Del Method Room Air 04/19/24 07:18 BMI result Body Mass Index 23.5 GI: Other: Abdomen is soft. Moderate right upper quadrant/epigastric tenderness. No evidence of any guarding, rebound, or rigidity. Results Labs 04/19/24 05:46 04/19/24 05:46 Labs: Abnormal lab results 04/18/24 04/18/24 04/18/24 Range/Units 12:05 16:19 18:25 WBC (4.8-10.8) X10*3/uL RBC 2.66 L (4.60-5.80) X10*6/uL Hgb 8.0 L (14.0-18.0) g/dl Hct 22.0 L (42.0-52.0) % MCHC 36.4 H (31.0-36.0) g/dl Immature Gran % (Auto) (0.0-0.4) % Neut % (Auto) 83.3 H (45-73) % Lymph % (Auto) 11.0 L (20-40) % [place] % (Auto) (2-11) % [place] # (Auto) (0.1-1.2) X10*3/uL Abs Immat Gran (auto) (0.00-0.03) X10*3/uL Absolute Neuts (auto) 8.7 H (2.0-8.3) x10*3/uL VBG pH 7.52 H (7.32-7.43) VBG HCO3 16 L (22-26) mmol/L Chloride (96-108) mmol/L Carbon Dioxide 16 L (22-29) mmol/L BUN 57 H (9-16) mg/dL Creatinine 3.70 H (0.5-1.4) mg/dL POC Glucose (60-115) mg/dL Random Glucose 270 H (60-115) mg/dL Calcium (8.4-10.2) mg/dL Total Bilirubin 3.4 H (0.0-1.0) mg/dL Direct Bilirubin 2.8 H (0.0-0.5) mg/dL AST 253 H (5-37) U/L ALT 405 H (0-40) U/L Alkaline Phosphatase 755 H (39-117) U/L Urine Protein 300 (3+) H (Neg-Trace) mg/dL Urine Glucose (UA) 500 H (Negative) mg/dL Urine Cocaine Screen POSITIVE H (Not Detect) 04/18/24 04/19/24 04/19/24 Range/Units 20:55 05:46 07:15 WBC 11.1 H (4.8-10.8) X10*3/uL RBC 2.64 L (4.60-5.80) X10*6/uL Hgb 7.6 L (14.0-18.0) g/dl Hct 22.0 L (42.0-52.0) % MCHC (31.0-36.0) g/dl Immature Gran % (Auto) 0.8 H (0.0-0.4) % Neut % (Auto) 74.1 H (45-73) % Lymph % (Auto) 12.4 L (20-40) % [place] % (Auto) 12.1 H (2-11) % [place] # (Auto) 1.3 H (0.1-1.2) X10*3/uL Abs Immat Gran (auto) 0.09 H (0.00-0.03) X10*3/uL Absolute Neuts (auto) (2.0-8.3) x10*3/uL VBG pH (7.32-7.43) VBG HCO3 (22-26) mmol/L Chloride 111 H (96-108) mmol/L Carbon Dioxide 16 L (22-29) mmol/L BUN 50 H (9-16) mg/dL Creatinine 3.68 H (0.5-1.4) mg/dL POC Glucose 258 H 125 H (60-115) mg/dL Random Glucose 150 H (60-115) mg/dL Calcium 8.3 L D (8.4-10.2) mg/dL Total Bilirubin (0.0-1.0) mg/dL Direct Bilirubin (0.0-0.5) mg/dL AST (5-37) U/L ALT (0-40) U/L Alkaline Phosphatase (39-117) U/L Urine Protein (Neg-Trace) mg/dL Urine Glucose (UA) (Negative) mg/dL Urine Cocaine Screen (Not Detect) Short CBC 04/18/24 04/19/24 Range/Units 12:05 05:46 WBC 10.5 11.1 H (4.8-10.8) X10*3/uL Hgb 8.0 L 7.6 L (14.0-18.0) g/dl Hct 22.0 L 22.0 L (42.0-52.0) % Plt Count 198 174 (160-400) X10*3/uL BMP 04/18/24 04/19/24 12:05 05:46 Sodium 136 138 Potassium 4.2 4.0 Chloride 108 111 H Carbon Dioxide 16 L 16 L BUN 57 H 50 H Creatinine 3.70 H 3.68 H Calcium 8.9 8.3 L D Liver Function 04/18/24 Range/Units 12:05 Total Bilirubin 3.4 H (0.0-1.0) mg/dL Direct Bilirubin 2.8 H (0.0-0.5) mg/dL AST 253 H (5-37) U/L ALT 405 H (0-40) U/L Alkaline Phosphatase 755 H (39-117) U/L Albumin 3.6 (3.5-5.0) g/dL Urine 04/18/24 Range/Units 16:19 Urine Color Yellow Urine Appearance Clear Urine pH 6.0 (5.0-9.0) Ur Specific [place] 1.015 (1.005-1.025) Urine Protein 300 (3+) H (Neg-Trace) mg/dL Urine Glucose (UA) 500 H (Negative) mg/dL All other labs normal. Assessment and Plan (1) Choledocholithiasis: Status: Acute (2) Acute cholecystitis: Status: Acute Plan Choly cystitis with possible choly done cholelithiasis. A.m. labs still pending. If LFTs are still elevated, consider GI consult for possible either MRCP or ERCP. Once labs and clinically stable, we will eventually need laparoscopic possible open cholecystectomy. Procedures Date of Service Date of Service: 04/19/24
--- NOTE | 2024-04-19 07:45 | PM.CNGS ---
History of Present Illness Consult details Consult date: 04/20/24 Narrative: 57 year old male patient presenting with severe RUQ abdominal pain, nausea and vomiting found to have gallstones and elevated LFTs. His past history is significant for chronic normocytic anemia, hypertension, hyperlipidemia, diabetic polyneuropathy, diabetic nephropathy, chronic pain syndrome, insulin dependent type 2 diabetes, cocaine abuse, nephrotic syndrome, CKD stage 4, diastolic heart failure, and depression. Work up in the ED revealed total bilirubin 3.4, AST 253, ALT 405, alkaline phosphatase 755. Urinalysis with 3+ protein and glucose but otherwise unremarkable. CT abdomen/pelvis revealed gallstones in GB but negative for visible biliary ductal dilatation and no radiopaque choledocholithiasis. Abdominal ultrasound shows cholelithiasis, normal-appearing liver and nonvisualization of the common bile duct without any intrahepatic biliary ductal dilatation. US Lanza's sign was elicited. He is awaiting MRCP this morning. Review of Systems Review of Systems: Yes all other systems are reviewed and are negative Constitutional: Constitutional: Denies chills, Denies fever(s), Denies headache(s), Denies poor appetite and Denies weakness ENT: Denies headache(s) Cardiovascular: Cardiovascular: Denies chest pain, Denies irregular heart rhythm, Denies palpitations and Denies dyspnea Respiratory: Respiratory: Denies cough, Denies excessive phlegm production and Denies dyspnea Gastrointestinal: Gastrointestinal: Reports abdominal pain, Denies bloating, Denies change in bowel habits, Denies constipation, Denies heartburn, Denies diarrhea, Reports nausea and Reports vomiting Genitourinary: Genitourinary: Denies difficulty urinating and Denies urinary frequency Musculoskeletal: Musculoskeletal: Denies back pain, Denies muscle weakness and Denies numbness Integumentary/Breasts: Skin/Breast: Denies changing lesions and Denies unusual bruising Neurologic: Denies headache(s), Denies numbness, Denies paresthesias and Denies weakness Psychiatric: Psychiatric: Denies anxiety and Denies depression Endocrine: Endocrine: Denies palpitations Hematologic/Lymphatic: Hematologic/Lymphatic: Denies lymphadenopathy [facility] Past Medical History Medical History Anemia Congestive heart failure Nephrotic syndrome Diastolic heart failure Anemia Pneumonia Diabetic nephropathy Anemia Chronic pain syndrome Diabetic polyneuropathy Vitamin D deficiency Depression HTN (hypertension) HLD (hyperlipidemia) T2DM (type 2 diabetes mellitus) Family History Family History Father Colon cancer Mother History of kidney problems T2DM (type 2 diabetes mellitus) Sister T2DM (type 2 diabetes mellitus) Surgical History Surgical History Status post biopsy of kidney Hx of colonoscopy Hx of rotator cuff surgery Social History Social History Household Members: Family Household Members Other:: 2 Housing: Apartment Do you presently have visiting nurse or other home services: Yes (1/wk) Alcohol intake: former Comment: allowed to walk in room Patient Tobacco Use Status: Never used Tobacco Second Hand Smoke Exposure: No Substance Use Type: Crack/Cocaine Advance Directives Date on File: 04/28/23 service: No Current occupational status: disabled Current occupation: right handed Meds Allergies Allergy/AdvReac Type Severity Reaction Status Date / Time No Known Allergies Allergy Verified 04/18/24 11:30 [No Known Allergies*] Active Medications: Current Medications Acetaminophen (Acetaminophen 325 Mg Tablet) 650 mg PO Q6H PRN PRN Reason: Pain, Mild, h/a, fever Amlodipine Besylate (Amlodipine Besylate 10 Mg Tablet) 10 mg PO DAILY [facility]; Protocol Atorvastatin Calcium (Atorvastatin Calcium 80 Mg Tablet) 80 mg PO DAILY [facility] Benztropine Mesylate (Benztropine Mesylate 0.5 Mg Tablet) 0.5 mg PO DAILY [facility] Bumetanide (Bumetanide 1 Mg Tablet) 2 mg PO BID [facility]; Protocol Last Admin: 04/18/24 21:03 Dose: 2 mg Carvedilol (Carvedilol 6.25 Mg Tablet) 6.25 mg PO BID [facility]; Protocol Last Admin: 04/18/24 21:03 Dose: 6.25 mg Diphenhydramine HCl (Diphenhydramine Hcl 25 Mg Capsule) 25 mg PO BEDTIME [facility] Last Admin: 04/18/24 21:03 Dose: 25 mg Ferrous Sulfate (Ferrous Sulfate 324 Mg Tablet.Dr) 324 mg PO DAILY [facility] Gabapentin (Gabapentin 100 Mg Capsule) 100 mg PO BID [facility] Last Admin: 04/18/24 21:03 Dose: 100 mg Glucose (Glucose Gel 15 Gm Gel..Gram.) 15 gm PO Q15M PRN; Protocol PRN Reason: per Hypoglycemia Standing Ord. Hydralazine HCl (Hydralazine Hcl 50 Mg Tablet) 150 mg PO BID [facility]; Protocol Last Admin: 04/18/24 21:02 Dose: 150 mg Piperacillin Sod/Tazobactam (Sod 4.5 gm/ Sodium Chloride) 100 mls @ 200 mls/hr IV Q12H [facility] Last Infusion: 04/19/24 04:58 Dose: Infused Dextrose (D10) 250 mls @ 750 mls/hr IV Q15M PRN; Protocol PRN Reason: per Hypoglycemia Standing Ord. Insulin Glargine (Insulin Glargine,Hum.Rec.Anlog 100 Unit/Ml 10 Ml Vial) 25 unit SUBCUT DAILY [facility] Insulin Human Lispro (Insulin Lispro 100 Unit/Ml 3 Ml Vial) 0 unit SUBCUT QIDACHS [facility]; Protocol Last Admin: 04/19/24 07:22 Dose: Not Given Magnesium Hydroxide (Milk Of Magnesia 30 Ml Oral.Susp) 30 ml PO DAILY PRN PRN Reason: Constipation Morphine Sulfate (Morphine Sulfate 4 Mg/Ml Cartridge) 4 mg IVPUSH Q4H PRN; Protocol PRN Reason: Pain, Severe (Pain Scale 7-10) Last Admin: 04/19/24 05:52 Dose: 4 mg Ondansetron HCl (Ondansetron Hcl 4 Mg/2 Ml Vial) 4 mg IVPUSH Q8H PRN PRN Reason: Nausea and Vomiting Last Admin: 04/19/24 05:55 Dose: 4 mg Oxycodone HCl (Oxycodone Hcl Immed Release 5 Mg Tablet) 5 mg PO Q6H PRN PRN Reason: Pain, Moderate(Pain Scale 4-6) Last Admin: 04/18/24 17:46 Dose: 5 mg Sodium Chloride (0.9 % Sodium Chloride Flush 3 Ml Syringe) [facility] Last Admin: 04/18/24 21:04 Dose: 3 ml Tamsulosin HCl (Tamsulosin Hcl 0.4 Mg Capsule) 0.4 mg PO DAILY [facility] Trazodone HCl (Trazodone Hcl 50 Mg Tablet) 50 mg PO BEDTIME MRX1 PRN PRN Reason: Insomnia Last Admin: 04/18/24 21:01 Dose: 50 mg Ziprasidone (Ziprasidone 60 Mg Capsule) 60 mg PO BID [facility] Last Admin: 04/18/24 21:03 Dose: 60 mg Home Medications ?Medication ?Instructions ?Recorded ?Confirmed ?Last Taken ?Type insulin glargine 100 unit/mL (3 35 unit subcut DAILY 12/22/20 04/18/24 04/17/24 History mL) subcutaneous pen (Lantus Solostar U-100 Insulin) insulin lispro 100 unit/mL 14 unit subcut TIDAC 12/22/20 04/18/24 04/17/24 History subcutaneous pen (Humalog KwikPen (U-100) Insulin) diphenhydramine HCl 25 mg capsule 25 mg PO BEDTIME 04/18/23 04/18/24 04/17/24 History (Benadryl) tamsulosin 0.4 mg capsule 0.4 mg PO DAILY 04/18/23 04/18/24 04/17/24 History ziprasidone HCl 60 mg capsule 60 mg PO BID 04/18/23 04/18/24 04/17/24 History (Geodon) atorvastatin 80 mg tablet 80 mg PO DAILY 05/23/23 04/18/24 04/17/24 History benztropine 0.5 mg tablet 0.5 mg DAILY 10/14/23 04/18/24 04/17/24 History trazodone 50 mg tablet 50 - 100 mg PO BEDTIME PRN Insomnia 10/14/23 04/18/24 04/17/24 History gabapentin 100 mg capsule 100 mg PO BID 11/10/23 04/18/24 04/17/24 History dulaglutide 3 mg/0.5 mL 3 mg subcut WE 04/18/24 04/18/24 04/11/24 History subcutaneous pen injector (Trulicity) Physical Exam Vital Signs: Vital Signs: Last Vital Signs Temp 98.0 F 04/19/24 07:18 Pulse 87 04/19/24 07:18 Resp 16 04/19/24 07:18 BP 136/65 04/19/24 07:18 Pulse Ox 97 04/19/24 07:18 O2 Del Method Room Air 04/19/24 07:18 BMI result Body Mass Index 23.5 Const: General: cooperative and no acute distress Nutritional Appearance: well nourished Orientation/consciousness: patient oriented x3 Limitations: no limitations HEENT: Head: Yes normocephalic and Yes atraumatic Ears: hearing grossly normal bilaterally Resp: Effort & Inspection: normal respiratory effort, no audible wheezes, no cough and no respiratory distress Cardio: Jugular venous distension: no JVD GI: Inspection: Yes normal to inspection Palpation (GI): Soft to palpation and Tenderness to palpation present (GI) in the RUQ and Lanza's sign positive Percussion: Yes dullness to percussion Auscultation: abnormal bowel sounds Rectal Exam - Male: Yes deferred Skin: Other: Warm, dry, no rash General skin exam: jaundice Neuro: General: patient oriented x3 Extrem: General: Yes no clubbing, cyanosis or edema Results Labs 04/20/24 08:19 04/20/24 08:19 Labs: Abnormal lab results 04/18/24 04/18/24 04/18/24 Range/Units 12:05 16:19 18:25 WBC (4.8-10.8) X10*3/uL RBC 2.66 L (4.60-5.80) X10*6/uL Hgb 8.0 L (14.0-18.0) g/dl Hct 22.0 L (42.0-52.0) % MCHC 36.4 H (31.0-36.0) g/dl Immature Gran % (Auto) (0.0-0.4) % Neut % (Auto) 83.3 H (45-73) % Lymph % (Auto) 11.0 L (20-40) % [place] % (Auto) (2-11) % [place] # (Auto) (0.1-1.2) X10*3/uL Abs Immat Gran (auto) (0.00-0.03) X10*3/uL Absolute Neuts (auto) 8.7 H (2.0-8.3) x10*3/uL VBG pH 7.52 H (7.32-7.43) VBG HCO3 16 L (22-26) mmol/L Chloride (96-108) mmol/L Carbon Dioxide 16 L (22-29) mmol/L BUN 57 H (9-16) mg/dL Creatinine 3.70 H (0.5-1.4) mg/dL POC Glucose (60-115) mg/dL Random Glucose 270 H (60-115) mg/dL Calcium (8.4-10.2) mg/dL Total Bilirubin 3.4 H (0.0-1.0) mg/dL Direct Bilirubin 2.8 H (0.0-0.5) mg/dL AST 253 H (5-37) U/L ALT 405 H (0-40) U/L Alkaline Phosphatase 755 H (39-117) U/L Urine Protein 300 (3+) H (Neg-Trace) mg/dL Urine Glucose (UA) 500 H (Negative) mg/dL Urine Cocaine Screen POSITIVE H (Not Detect) 04/18/24 04/19/24 04/19/24 Range/Units 20:55 05:46 07:15 WBC 11.1 H (4.8-10.8) X10*3/uL RBC 2.64 L (4.60-5.80) X10*6/uL Hgb 7.6 L (14.0-18.0) g/dl Hct 22.0 L (42.0-52.0) % MCHC (31.0-36.0) g/dl Immature Gran % (Auto) 0.8 H (0.0-0.4) % Neut % (Auto) 74.1 H (45-73) % Lymph % (Auto) 12.4 L (20-40) % [place] % (Auto) 12.1 H (2-11) % [place] # (Auto) 1.3 H (0.1-1.2) X10*3/uL Abs Immat Gran (auto) 0.09 H (0.00-0.03) X10*3/uL Absolute Neuts (auto) (2.0-8.3) x10*3/uL VBG pH (7.32-7.43) VBG HCO3 (22-26) mmol/L Chloride 111 H (96-108) mmol/L Carbon Dioxide 16 L (22-29) mmol/L BUN 50 H (9-16) mg/dL Creatinine 3.68 H (0.5-1.4) mg/dL POC Glucose 258 H 125 H (60-115) mg/dL Random Glucose 150 H (60-115) mg/dL Calcium 8.3 L D (8.4-10.2) mg/dL Total Bilirubin (0.0-1.0) mg/dL Direct Bilirubin (0.0-0.5) mg/dL AST (5-37) U/L ALT (0-40) U/L Alkaline Phosphatase (39-117) U/L Urine Protein (Neg-Trace) mg/dL Urine Glucose (UA) (Negative) mg/dL Urine Cocaine Screen (Not Detect) Short CBC 04/18/24 04/19/24 Range/Units 12:05 05:46 WBC 10.5 11.1 H (4.8-10.8) X10*3/uL Hgb 8.0 L 7.6 L (14.0-18.0) g/dl Hct 22.0 L 22.0 L (42.0-52.0) % Plt Count 198 174 (160-400) X10*3/uL BMP 04/18/24 04/19/24 12:05 05:46 Sodium 136 138 Potassium 4.2 4.0 Chloride 108 111 H Carbon Dioxide 16 L 16 L BUN 57 H 50 H Creatinine 3.70 H 3.68 H Calcium 8.9 8.3 L D Liver Function 04/18/24 Range/Units 12:05 Total Bilirubin 3.4 H (0.0-1.0) mg/dL Direct Bilirubin 2.8 H (0.0-0.5) mg/dL AST 253 H (5-37) U/L ALT 405 H (0-40) U/L Alkaline Phosphatase 755 H (39-117) U/L Albumin 3.6 (3.5-5.0) g/dL Urine 04/18/24 Range/Units 16:19 Urine Color Yellow Urine Appearance Clear Urine pH 6.0 (5.0-9.0) Ur Specific [place] 1.015 (1.005-1.025) Urine Protein 300 (3+) H (Neg-Trace) mg/dL Urine Glucose (UA) 500 H (Negative) mg/dL All other labs normal. 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 Patient would benefit from laparoscopic or possible open cholecystectomy. I reviewed the procedure, risks and alternatives and he consents to the procedure. He will be scheduled for Tuesday. Discussed with Dr. Rubi. Patient is optimized from his standpoint for surgical intervention. Procedures Date of Service Date of Service: 04/20/24
[2024-04-19] MEDS: Ferrous Sulfate 324 MG TABLET.DR PO (07:57)
[2024-04-19] MEDS: carvediloL 6.25 MG TABLET PO ×2 (07:57→20:14)
[2024-04-19] MEDS: hydrALAZINE HCl 50 MG TABLET 150 MG PO ×2 (07:57→20:14)
[2024-04-19] MEDS: Tamsulosin HCL 0.4 MG CAPSULE PO (07:57)
[2024-04-19] MEDS: Ziprasidone 60 MG CAPSULE PO ×2 (07:57→20:14)
[2024-04-19] MEDS: Gabapentin 100 MG CAPSULE PO ×2 (07:57→20:13)
[2024-04-19] MEDS: Benztropine Mesylate 0.5 MG TABLET PO (07:57)
[2024-04-19] MEDS: Bumetanide 1 MG TABLET 2 MG PO (07:57)
[2024-04-19] MEDS: amLODIPine Besylate 10 MG TABLET PO (07:57)
[2024-04-19] MEDS: Atorvastatin Calcium 80 MG TABLET PO (07:57)
[2024-04-19] MEDS: 0.9 % Sodium Chloride Flush 3 ML SYRINGE IVFLUSH ×3 (07:57→20:05)
[2024-04-19 08:22] LABS: Alanine Aminotransferase 324 U/L (0-40); Albumin Level 3.1 g/dL (3.5-5.0); Alkaline Phosphatase 738 U/L (39-117); Aspartate Amino Transferase 172 U/L (5-37); Bilirubin Direct 3.4 mg/dL (0.0-0.5); Bilirubin Total 3.9 mg/dL (0.0-1.0); Total Protein 6.2 g/dL (6.5-8.0)
[2024-04-19 08:38] LABS: Iron 35 mcg/dL (45-160); Percent Iron Saturation 24 % (15-50); Total Iron Binding Capacity 144 mcg/dL (228-428); Unsaturated Iron Binding 109 ug/dL
[2024-04-19 09:00] LABS: Ferritin 439 ng/mL (20-250)
--- NOTE | 2024-04-19 09:17 | MHC.CM.PN ---
IMM DELIVERED. PT LIVES WITH SISTER AND IS INDEPENDENT AT BASELINE. PT DECLINES TO COMPLETE A HCP. PCP DR. WANDA AWAD AT [facility]. DP: HOME, NO SERVICES ANTICIPATED. PT HAS OWN RIDE HOME.
[2024-04-19 11:13] LABS: Glucose, Whole Blood 124 mg/dL (60-115)
--- NOTE | 2024-04-19 13:32 | P.PNIM_ITS ---
Subjective Subjective Date of Service: 04/19/24 Interval History: abd pain /possible choledocholithiasis Review of Systems abd pain somewhat improving still jaundiced. Physical Exam 2 Vital Signs: Vital Signs: Last Vital Signs Temp 98.0 F 04/19/24 07:18 Pulse 87 04/19/24 07:18 Resp 16 04/19/24 07:18 BP 136/65 04/19/24 07:18 Pulse Ox 97 04/19/24 07:18 O2 Del Method Room Air 04/19/24 07:18 BMI result Body Mass Index 23.5 Appearance: Alert.? Oriented X3.? cvs: rrr, [id number] , no murmur res: clear to auscultation ,no rhonchii or wheezing abd: no rebound or guarding ,ruq pain ,bs present . ext pulses present , no cyanosis . neuro: axo3 , nonfocal. Objective Data Active Medications Acetaminophen (Acetaminophen 325 Mg Tablet) 650 mg PO Q6H PRN PRN Reason: Pain, Mild, h/a, fever Amlodipine Besylate (Amlodipine Besylate 10 Mg Tablet) 10 mg PO DAILY [facility]; Protocol Last Admin: 04/19/24 07:57 Dose: 10 mg Documented By: KADY Atorvastatin Calcium (Atorvastatin Calcium 80 Mg Tablet) 80 mg PO DAILY [facility] Last Admin: 04/19/24 07:57 Dose: 80 mg Documented By: KADY Benztropine Mesylate (Benztropine Mesylate 0.5 Mg Tablet) 0.5 mg PO DAILY [facility] Last Admin: 04/19/24 07:57 Dose: 0.5 mg Documented By: KADY Bumetanide (Bumetanide 1 Mg Tablet) 2 mg PO BID [facility]; Protocol Last Admin: 04/19/24 07:57 Dose: 2 mg Documented By: KADY Carvedilol (Carvedilol 6.25 Mg Tablet) 6.25 mg PO BID [facility]; Protocol Last Admin: 04/19/24 07:57 Dose: 6.25 mg Documented By: KADY Diphenhydramine HCl (Diphenhydramine Hcl 25 Mg Capsule) 25 mg PO BEDTIME [facility] Last Admin: 04/18/24 21:03 Dose: 25 mg Documented By: JASMINA Ferrous Sulfate (Ferrous Sulfate 324 Mg Tablet.) 324 mg PO DAILY [facility] Last Admin: 04/19/24 07:57 Dose: 324 mg Documented By: KADY Gabapentin (Gabapentin 100 Mg Capsule) 100 mg PO BID [facility] Last Admin: 04/19/24 07:57 Dose: 100 mg Documented By: KADY Glucose (Glucose Gel 15 Gm Gel..Gram.) 15 gm PO Q15M PRN; Protocol PRN Reason: per Hypoglycemia Standing Ord. Hydralazine HCl (Hydralazine Hcl 50 Mg Tablet) 150 mg PO BID [facility]; Protocol Last Admin: 04/19/24 07:57 Dose: 150 mg Documented By: KADY Piperacillin Sod/Tazobactam (Sod 4.5 gm/ Sodium Chloride) 100 mls @ 200 mls/hr IV Q12H [facility] Last Infusion: 04/19/24 04:58 Dose: Infused Documented By: JASMINA Dextrose (D10) 250 mls @ 750 mls/hr IV Q15M PRN; Protocol PRN Reason: per Hypoglycemia Standing Ord. Insulin Human Lispro (Insulin Lispro 100 Unit/Ml 3 Ml Vial) 0 unit SUBCUT QIDACHS [facility]; Protocol Last Admin: 04/19/24 11:15 Dose: Not Given Documented By: KADY Non-Admin Reason: No Insulin Coverage Magnesium Hydroxide (Milk Of Magnesia 30 Ml Oral.Susp) 30 ml PO DAILY PRN PRN Reason: Constipation Morphine Sulfate (Morphine Sulfate 4 Mg/Ml Cartridge) 4 mg IVPUSH Q4H PRN; Protocol PRN Reason: Pain, Severe (Pain Scale 7-10) Last Admin: 04/19/24 12:06 Dose: 4 mg Documented By: KADY Ondansetron HCl (Ondansetron Hcl 4 Mg/2 Ml Vial) 4 mg IVPUSH Q8H PRN PRN Reason: Nausea and Vomiting Last Admin: 04/19/24 05:55 Dose: 4 mg Documented By: JASMINA Oxycodone HCl (Oxycodone Hcl Immed Release 5 Mg Tablet) 5 mg PO Q6H PRN PRN Reason: Pain, Moderate(Pain Scale 4-6) Last Admin: 04/18/24 17:46 Dose: 5 mg Documented By: ANDREINA Sodium Chloride (0.9 % Sodium Chloride Flush 3 Ml Syringe) 3 ml IVFLUSH QSHIFT [facility] Last Admin: 04/19/24 07:57 Dose: 3 ml Documented By: KADY Tamsulosin HCl (Tamsulosin Hcl 0.4 Mg Capsule) 0.4 mg PO DAILY [facility] Last Admin: 04/19/24 07:57 Dose: 0.4 mg Documented By: KADY Trazodone HCl (Trazodone Hcl 50 Mg Tablet) 50 mg PO BEDTIME MRX1 PRN PRN Reason: Insomnia Last Admin: 04/18/24 21:01 Dose: 50 mg Documented By: JASMINA Ziprasidone (Ziprasidone 60 Mg Capsule) 60 mg PO BID [facility] Last Admin: 04/19/24 07:57 Dose: 60 mg Documented By: KADY Labs 04/19/24 05:46 04/19/24 05:46 Labs: Laboratory Results - last 24 hr 04/18/24 04/18/24 04/18/24 12:05 12:29 16:19 MCV MCH MCHC RDW Plt Count MPV Immature Gran % (Auto) Neut % (Auto) Lymph % (Auto) [place] % (Auto) Eos % (Auto) Baso % (Auto) Lymph # (Auto) [place] # (Auto) Eos # (Auto) Baso # (Auto) Abs Immat Gran (auto) Absolute Neuts (auto) Absolute Nucleated RBC Nucleated RBC % (auto) VBG pH VBG pCO2 VBG pO2 VBG HCO3 VBG O2 Saturation VBG Base Excess Anion Gap Estim Creat Clear Calc Estimated GFR POC Glucose Random Glucose Calcium Iron TIBC % Saturation Unsat Iron Binding Ferritin Total Bilirubin Direct Bilirubin 2.8 H AST ALT Alkaline Phosphatase Total Protein Albumin Urine Color Yellow Urine Appearance Clear Urine pH 6.0 Ur Specific [place] 1.015 Urine Protein 300 (3+) H Urine Glucose (UA) 500 H Urine Ketones Negative Urine Blood Negative Urine Nitrite Negative Ur Leukocyte Esterase Negative Urine RBC 0-2 Urine WBC 0-5 Ur Squamous Epith Cells 0-2 Urine Bacteria None Seen Hyaline Casts 0-2 Urine Opiates Screen Not Detected Ur Buprenorphine Scrn Not Detected Ur Oxycodone Screen Not Detected Urine Methadone Screen Not Detected Urine Fentanyl Screen Not Detected Ur Barbiturates Screen Not Detected Ur Phencyclidine Scrn Not Detected Ur Amphetamines Screen Not Detected U Benzodiazepines Scrn Not Detected Urine Cocaine Screen POSITIVE H U Marijuana (THC) Screen Not Detected Influenza Type A (PCR) NEGATIVE Influenza Type B (PCR) NEGATIVE RSV RNA Qual (PCR) NEGATIVE SARS-CoV-2 RNA (RT-PCR) NEGATIVE 04/18/24 04/18/24 04/19/24 18:25 20:55 05:46 MCV 83.3 MCH 28.8 MCHC 34.5 RDW 15.6 Plt Count 174 MPV 9.7 Immature Gran % (Auto) 0.8 H Neut % (Auto) 74.1 H Lymph % (Auto) 12.4 L [place] % (Auto) 12.1 H Eos % (Auto) 0.3 Baso % (Auto) 0.3 Lymph # (Auto) 1.4 [place] # (Auto) 1.3 H Eos # (Auto) 0.0 Baso # (Auto) 0.0 Abs Immat Gran (auto) 0.09 H Absolute Neuts (auto) 8.3 Absolute Nucleated RBC 0.000 Nucleated RBC % (auto) 0.0 VBG pH 7.52 H VBG pCO2 19 VBG pO2 223 VBG HCO3 16 L VBG O2 Saturation 100.0 VBG Base Excess -4.2 Anion Gap 15 Estim Creat Clear Calc 18.0 Estimated GFR 17 POC Glucose 258 H Random Glucose 150 H Calcium 8.3 L D Iron 35 L TIBC 144 L % Saturation 24 Unsat Iron Binding 109 Ferritin 439 H Total Bilirubin 3.9 H Direct Bilirubin 3.4 H AST 172 H ALT 324 H Alkaline Phosphatase 738 H Total Protein 6.2 L Albumin 3.1 L Urine Color Urine Appearance Urine pH Ur Specific [place] Urine Protein Urine Glucose (UA) Urine Ketones Urine Blood Urine Nitrite Ur Leukocyte Esterase Urine RBC Urine WBC Ur Squamous Epith Cells Urine Bacteria Hyaline Casts Urine Opiates Screen Ur Buprenorphine Scrn Ur Oxycodone Screen Urine Methadone Screen Urine Fentanyl Screen Ur Barbiturates Screen Ur Phencyclidine Scrn Ur Amphetamines Screen U Benzodiazepines Scrn Urine Cocaine Screen U Marijuana (THC) Screen Influenza Type A (PCR) Influenza Type B (PCR) RSV RNA Qual (PCR) SARS-CoV-2 RNA (RT-PCR) 04/19/24 04/19/24 07:15 11:09 MCV MCH MCHC RDW Plt Count MPV Immature Gran % (Auto) Neut % (Auto) Lymph % (Auto) [place] % (Auto) Eos % (Auto) Baso % (Auto) Lymph # (Auto) [place] # (Auto) Eos # (Auto) Baso # (Auto) Abs Immat Gran (auto) Absolute Neuts (auto) Absolute Nucleated RBC Nucleated RBC % (auto) VBG pH VBG pCO2 VBG pO2 VBG HCO3 VBG O2 Saturation VBG Base Excess Anion Gap Estim Creat Clear Calc Estimated GFR POC Glucose 125 H 124 H Random Glucose Calcium Iron TIBC % Saturation Unsat Iron Binding Ferritin Total Bilirubin Direct Bilirubin AST ALT Alkaline Phosphatase Total Protein Albumin Urine Color Urine Appearance Urine pH Ur Specific [place] Urine Protein Urine Glucose (UA) Urine Ketones Urine Blood Urine Nitrite Ur Leukocyte Esterase Urine RBC Urine WBC Ur Squamous Epith Cells Urine Bacteria Hyaline Casts Urine Opiates Screen Ur Buprenorphine Scrn Ur Oxycodone Screen Urine Methadone Screen Urine Fentanyl Screen Ur Barbiturates Screen Ur Phencyclidine Scrn Ur Amphetamines Screen U Benzodiazepines Scrn Urine Cocaine Screen U Marijuana (THC) Screen Influenza Type A (PCR) Influenza Type B (PCR) RSV RNA Qual (PCR) SARS-CoV-2 RNA (RT-PCR) Assessment and Plan (1) Choledocholithiasis: Status: Acute (2) Acute cholecystitis: Status: Acute Assessment and Plan: 57 year old male with chronic normocytic anemia, htn, hld, diabetic polyneuropathy, diabetic nephropathy, chronic pain syndrome, insulin dependent type 2 diabetes, cocaine abuse, nephrotic syndrome, CKD stage 4, diastolic heart failure, and depression admitted for further management of acute cholecystitis/choledocholithiasis with obstructive jaundice. acute cholecystitis/choledocholithiasis with obstructive jaundice: CT abdomen/pelvis negative for visible biliary ductal dilatation and no radiopaque choledocholithiasis. abdominal ultrasound shows normal-appearing liver and nonvisualization of the common bile duct without any intrahepatic biliary ductal dilatation. There is also cholelithiasis and findings consistent with acute cholecystitis and positive sonographic Lanza's sign but no mural edema or pericholecystic fluid. bilirubin trending up,alk phos similar alt/ast improving No leukocytosis or fevers. No sepsis mrcp: Moderate intrahepatic biliary ductal dilatation. The common duct is of normal caliber measuring 5 mm distally. There is 1.2 cm focal signal dropout of the common duct at the joan hepatis most likely related to the mass effect from a stone within the gallbladder. 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 There is gallbladder wall thickening and gallbladder wall edema with intraluminal gallstones. Trace perihepatic free fluid. Consider acute cholecystitis. plan: Continue IV Zosyn, npo ,pain management prn, antiemetics prn general surgery consult,follow cbc, cultures insulin-dependent type 2 diabetes with hyperglycemia -last hemoglobin A1c 6.7% -dose adjusted basal insulin -POC glucose, Admelog sliding scale. hold lantus due to npo. CKD stage 4-renal function baseline heart failure preserved ejection fraction -clinically euvolemic, fluid restrictions to 1.5 L, advanced to low-sodium diet hold bumex since npo. HTN Continue carvedilol, hydralazine hold amlodipine for 1 day since npo. -Follow BPs Cocaine abuse-Utox pending -consider addiction med consult if needed anemia of chronic disease -H/H above transfusion threshold, baseline DVT prophylaxis- heparin Full code Pt requires inpt need to stay: acute cholecystitis and choledocholithiasis with obstructive jaundice requiring further imaging for further evaluation, IV antibiotics, expert consultation, and possible c surgical intervention Plan lft's also little improving ,bilirubin elevated Quality Stroke Does the patient have a stroke diagnosis?: No VTE Prior VTE?: No VTE Risk Level:: Medical - moderate - high VTE Device Contraindication: Treatment Not Indicated VTE Drug Contraindication: N/A - Med Ordered
[2024-04-19 14:29] LABS: Hemoglobin 7.1 g/dl (14.0-18.0)
[2024-04-19 14:49] LABS: Hematocrit 19.8 % (42.0-52.0)
[2024-04-19] MEDS: Acetaminophen 325 MG TABLET 650 MG PO (15:52)
[2024-04-19] MEDS: diphenhydrAMINE HCL 25 MG CAPSULE PO ×2 (15:52→20:13)
[2024-04-19 16:34] LABS: Glucose, Whole Blood 100 mg/dL (60-115)
[2024-04-19] MEDS: Bumetanide 1 MG/4 ML VIAL 2 MG IVPUSH (20:05)
[2024-04-19 20:09] LABS: Glucose, Whole Blood 159 mg/dL (60-115)
[2024-04-19] MEDS: Insulin Lispro 100 UNIT/ML 3 ML VIAL SUBCUT (20:23)
[2024-04-20] VITALS (13 sets, daily range): BP systolic 106–139; BP diastolic 51–65; PULSE 76–87; RESP 12–18; TEMP 36.3–37.3; O2SAT 91–99; BMI 23.4
[2024-04-20] MEDS: Morphine Sulfate 4 MG/ML CARTRIDGE IVPUSH ×3 (02:33→20:02)
[2024-04-20] MEDS: vancomycin HCL 1,500 MG in 0.9 % Sodium Chloride 500 ML 333.33 MG IV (03:07)
[2024-04-20] MEDS: Piperacillin Sodium/Tazobactam 4.5 GM in 0.9 % Sodium Chloride 100 ML IV ×2 (05:04→17:33)
--- NOTE | 2024-04-20 07:10 | PC.NURSE ---
Approximately after 05:30, pt tried to void using the bathroom, but couldn't void, despite feeling the urge to go. Pt's abdomen was distended, and was bladder scan for >707ml. MD Sims was notified of the situation and straight cath was ordered. Pt was straight cath for 725ml of concentrated dark yellow urine. Afterwards, pt was re-bladder scan for 77ml at 06:40. Will continue to monitor the pt's output.
[2024-04-20 07:39] LABS: Glucose, Whole Blood 75 mg/dL (60-115)
[2024-04-20] MEDS: ondansetron HCL 4 MG/2 ML VIAL IVPUSH (07:46)
[2024-04-20 08:26] LABS: Hematocrit 26.3 % (42.0-52.0); Hemoglobin 9.3 g/dl (14.0-18.0)
[2024-04-20 08:50] LABS: Alanine Aminotransferase 199 U/L (0-40); Albumin Level 2.7 g/dL (3.5-5.0); Alkaline Phosphatase 623 U/L (39-117); Anion Gap 18 (12-20); Aspartate Amino Transferase 78 U/L (5-37); Bilirubin Total 6.6 mg/dL (0.0-1.0); Blood Urea Nitrogen 62 mg/dL (9-16); Calcium 7.6 mg/dL (8.4-10.2); Carbon Dioxide 15 mmol/L (22-29); Chloride 107 mmol/L (96-108); Glucose Random 78 mg/dL (60-115); Potassium 4.2 mmol/L (3.3-5.1); Sodium 136 mmol/L (135-145); Total Protein 5.8 g/dL (6.5-8.0)
[2024-04-20] MEDS: Ziprasidone 60 MG CAPSULE PO ×2 (09:09→20:04)
[2024-04-20] MEDS: carvediloL 6.25 MG TABLET PO (09:09)
[2024-04-20] MEDS: Tamsulosin HCL 0.4 MG CAPSULE PO (09:10)
[2024-04-20] MEDS: Benztropine Mesylate 0.5 MG TABLET PO (09:10)
[2024-04-20] MEDS: Ferrous Sulfate 324 MG TABLET.DR PO (09:10)
[2024-04-20] MEDS: hydrALAZINE HCl 50 MG TABLET 150 MG PO (09:10)
[2024-04-20] MEDS: Gabapentin 100 MG CAPSULE PO ×2 (09:10→20:03)
[2024-04-20] MEDS: Atorvastatin Calcium 80 MG TABLET PO (09:10)
[2024-04-20] MEDS: oxyCODONE HCl Immed Release 5 MG TABLET PO (09:10)
[2024-04-20 09:11] LABS: Estimated Glomerular Filt Rate 13
[2024-04-20] MEDS: 0.9 % Sodium Chloride Flush 3 ML SYRINGE IVFLUSH ×2 (09:11→17:08)
--- NOTE | 2024-04-20 09:40 | MHC.SHP ---
Pre-Procedural Eval Section A - 24 Hr Update-Section A only Date of Service: 04/20/24 The patient is an INPATIENT: Yes Section B - Complete if H&P > 30 days Chief Complaint: Cholecystitis/choledocolithiasis Allergies: Allergies Allergy/AdvReac Type Severity Reaction Status Date / Time No Known Allergies Allergy Verified 04/18/24 11:30 [No Known Allergies*] Plan Diagnosis/Plan: Unchanged I have reviewed the history and physical and performed a pertinent physical examination on my patient. No changes have occurred unless specified. Time Spent With Patient Time: Total time managing care of this patient today ____ minutes.
[2024-04-20] MEDS: Dextrose 5 % and 0.9 % NaCl 1,000 ML 80 ML IVCONT (09:47)
--- NOTE | 2024-04-20 11:02 | PM.CNNEP ---
History of Present Illness Reason for Consult Consult date: 04/23/24 Chief Complaint Chief complaint: Cholecystitis/choledocolithiasis History of Present Illness Narrative: 57 year old male with chronic normocytic anemia, htn, hld, diabetic polyneuropathy, diabetic nephropathy, chronic pain syndrome, insulin dependent type 2 diabetes, cocaine abuse, nephrotic syndrome, CKD stage 4, diastolic heart failure, and depression presented to the ED for evaluation of severe RUQ pain with associated nausea, vomiting, and anorexia ongoing x 3 days. Denies radiation of the pain. Primarily located in RUQ but reports mild diffuse discomfort. No fevers, chills, melena, hematochezia, hematemesis, urinary symptoms, shortness of breath, cough, chest pain. Better was well known to me. He has a history of longstanding diabetes mellitus. 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 No immune complexes were seen. Baseline serum creatinine has been in the mid threes. Review of Systems Constitutional: Denies fever(s) and Denies weight loss Cardiovascular: Denies chest pain Respiratory: Denies cough and Denies hemoptysis Gastrointestinal: Denies diarrhea and Denies nausea Musculoskeletal: Denies back pain Denies focal weakness PMFSH Past Medical History Medical History Anemia Congestive heart failure Nephrotic syndrome Diastolic heart failure Anemia Pneumonia Diabetic nephropathy Anemia Chronic pain syndrome Diabetic polyneuropathy Vitamin D deficiency Depression HTN (hypertension) HLD (hyperlipidemia) T2DM (type 2 diabetes mellitus) Family History Family History Father Colon cancer Mother History of kidney problems T2DM (type 2 diabetes mellitus) Sister T2DM (type 2 diabetes mellitus) Surgical History Surgical History Status post biopsy of kidney Hx of colonoscopy Hx of rotator cuff surgery Social History Social History Household Members: Family Household Members Other:: 2 Housing: Apartment Do you presently have visiting nurse or other home services: Yes (1/wk) Alcohol intake: former Comment: allowed to walk in room Patient Tobacco Use Status: Never used Tobacco Second Hand Smoke Exposure: No Substance Use Type: Crack/Cocaine Advance Directives Date on File: 04/28/23 service: No Current occupational status: disabled Current occupation: right handed Meds Allergies Allergy/AdvReac Type Severity Reaction Status Date / Time No Known Allergies Allergy Verified 04/18/24 11:30 [No Known Allergies*] Active Medications: Current Medications Amlodipine Besylate (Amlodipine Besylate 10 Mg Tablet) 10 mg PO DAILY [facility]; Protocol Last Admin: 04/19/24 07:57 Dose: 10 mg Atorvastatin Calcium (Atorvastatin Calcium 80 Mg Tablet) 80 mg PO DAILY [facility] Last Admin: 04/20/24 09:10 Dose: 80 mg Benztropine Mesylate (Benztropine Mesylate 0.5 Mg Tablet) 0.5 mg PO DAILY [facility] Last Admin: 04/20/24 09:10 Dose: 0.5 mg Bumetanide (Bumetanide 1 Mg Tablet) 2 mg PO BID [facility]; Protocol Last Admin: 04/19/24 07:57 Dose: 2 mg Carvedilol (Carvedilol 6.25 Mg Tablet) 6.25 mg PO BID [facility]; Protocol Last Admin: 04/20/24 09:09 Dose: 6.25 mg Diphenhydramine HCl (Diphenhydramine Hcl 25 Mg Capsule) 25 mg PO BEDTIME [facility] Last Admin: 04/19/24 20:13 Dose: 25 mg Ferrous Sulfate (Ferrous Sulfate 324 Mg Tablet.Dr) 324 mg PO DAILY [facility] Last Admin: 04/20/24 09:10 Dose: 324 mg Gabapentin (Gabapentin 100 Mg Capsule) 100 mg PO BID [facility] Last Admin: 04/20/24 09:10 Dose: 100 mg Glucose (Glucose Gel 15 Gm Gel..Gram.) 15 gm PO Q15M PRN; Protocol PRN Reason: per Hypoglycemia Standing Ord. Hydralazine HCl (Hydralazine Hcl 50 Mg Tablet) 150 mg PO BID [facility]; Protocol Last Admin: 04/20/24 09:10 Dose: 150 mg Piperacillin Sod/Tazobactam (Sod 4.5 gm/ Sodium Chloride) 100 mls @ 200 mls/hr IV Q12H [facility] Last Infusion: 04/20/24 05:41 Dose: Infused Dextrose (D10) 250 mls @ 750 mls/hr IV Q15M PRN; Protocol PRN Reason: per Hypoglycemia Standing Ord. Dextrose/Sodium Chloride (D5ns) 1,000 mls @ 80 mls/hr IVCONT .[id number] [facility] Last Admin: 04/20/24 09:47 Dose: 80 mls/hr Insulin Human Lispro (Insulin Lispro 100 Unit/Ml 3 Ml Vial) 0 unit SUBCUT QIDACHS [facility]; Protocol Last Admin: 04/20/24 09:04 Dose: Not Given Magnesium Hydroxide (Milk Of Magnesia 30 Ml Oral.Susp) 30 ml PO DAILY PRN PRN Reason: Constipation Morphine Sulfate (Morphine Sulfate 4 Mg/Ml Cartridge) 4 mg IVPUSH Q4H PRN; Protocol PRN Reason: Pain, Severe (Pain Scale 7-10) Last Admin: 04/20/24 07:47 Dose: 4 mg Ondansetron HCl (Ondansetron Hcl 4 Mg/2 Ml Vial) 4 mg IVPUSH Q8H PRN PRN Reason: Nausea and Vomiting Last Admin: 04/20/24 07:46 Dose: 4 mg Oxycodone HCl (Oxycodone Hcl Immed Release 5 Mg Tablet) 5 mg PO Q6H PRN PRN Reason: Pain, Moderate(Pain Scale 4-6) Last Admin: 04/20/24 09:10 Dose: 5 mg Pharmacy Consult (Consult Rx Vancomycin Dosing) 1 each MISCELLANE DAILY PRN PRN Reason: Consult order Sodium Chloride (0.9 % Sodium Chloride Flush 3 Ml Syringe) 3 ml IVFLUSH QSHIFT [facility] Last Admin: 04/20/24 09:11 Dose: 3 ml Tamsulosin HCl (Tamsulosin Hcl 0.4 Mg Capsule) 0.4 mg PO DAILY [facility] Last Admin: 04/20/24 09:10 Dose: 0.4 mg Trazodone HCl (Trazodone Hcl 50 Mg Tablet) 50 mg PO BEDTIME MRX1 PRN PRN Reason: Insomnia Last Admin: 04/18/24 21:01 Dose: 50 mg Ziprasidone (Ziprasidone 60 Mg Capsule) 60 mg PO BID [facility] Last Admin: 04/20/24 09:09 Dose: 60 mg Home Medications ?Medication ?Instructions ?Recorded ?Confirmed ?Last Taken ?Type insulin glargine 100 unit/mL (3 35 unit subcut DAILY 12/22/20 04/18/24 04/17/24 History mL) subcutaneous pen (Lantus Solostar U-100 Insulin) insulin lispro 100 unit/mL 14 unit subcut TIDAC 12/22/20 04/18/24 04/17/24 History subcutaneous pen (Humalog KwikPen (U-100) Insulin) diphenhydramine HCl 25 mg capsule 25 mg PO BEDTIME 04/18/23 04/18/24 04/17/24 History (Benadryl) tamsulosin 0.4 mg capsule 0.4 mg PO DAILY 04/18/23 04/18/24 04/17/24 History ziprasidone HCl 60 mg capsule 60 mg PO BID 04/18/23 04/18/24 04/17/24 History (Geodon) atorvastatin 80 mg tablet 80 mg PO DAILY 05/23/23 04/18/24 04/17/24 History benztropine 0.5 mg tablet 0.5 mg DAILY 10/14/23 04/18/24 04/17/24 History trazodone 50 mg tablet 50 - 100 mg PO BEDTIME PRN Insomnia 10/14/23 04/18/24 04/17/24 History gabapentin 100 mg capsule 100 mg PO BID 11/10/23 04/18/24 04/17/24 History dulaglutide 3 mg/0.5 mL 3 mg subcut WE 04/18/24 04/18/24 04/11/24 History subcutaneous pen injector (Trulicity) Physical Exam Vital Signs: Last Vital Signs Temp 99.1 F 04/20/24 08:00 Pulse 87 04/20/24 08:00 Resp 12 04/20/24 08:00 BP 139/65 04/20/24 08:00 Pulse Ox 91 L 04/20/24 08:00 O2 Del Method Room Air 04/20/24 08:00 BMI result Body Mass Index 23.5 Const General: comfortable Nutritional Appearance: well nourished Orientation/consciousness: patient oriented x3 HEENT Head: No normal to inspection Mouth: moist mucous membranes Neck Neck: Yes supple and Yes no JVD Resp Auscultation: clear to auscultation bilaterally, no rales and rub present Cardio Jugular venous distension: no JVD Palpation: no palpable S3 and no palpable S4 Heart sounds: no rubs GI Inspection: Yes distended Palpation (GI): Tenderness to palpation present (GI) General: Yes no CVA tenderness Back/Spine/Pelvis Back: no CVA tenderness Skin General skin exam: no rashes or lesions noted Neuro General: patient oriented x3 Extrem General: Yes no pedal edema and No clubbing Results Lab Results 04/23/24 06:09 04/23/24 06:09 Lab results: Chemistry 04/18/24 04/19/24 04/20/24 12:05 05:46 08:19 Sodium 136 138 136 Potassium 4.2 4.0 4.2 Carbon Dioxide 16 L 16 L 15 L BUN 57 H 50 H 62 H Creatinine 3.70 H 3.68 H 4.71 H* Calcium 8.9 8.3 L D 7.6 L D Hematology 04/18/24 04/19/24 04/19/24 12:05 05:46 14:18 WBC 10.5 11.1 H Hgb 8.0 L 7.6 L 7.1 L Plt Count 198 174 04/20/24 08:19 WBC Hgb 9.3 L D Plt Count Urinalysis 04/18/24 16:19 Urine Color Yellow Urine Appearance Clear Urine pH 6.0 Ur Specific [place] 1.015 Urine Protein 300 (3+) H Urine Glucose (UA) 500 H Urine Ketones Negative Urine Blood Negative Urine Nitrite Negative Ur Leukocyte Esterase Negative Urine RBC 0-2 Urine WBC 0-5 Ur Squamous Epith Cells 0-2 Hyaline Casts 0-2 Assessment and Plan (1) Acute cholecystitis: Status: Acute (2) Anemia due to chronic kidney disease: Status: Acute (3) CKD (chronic kidney disease): Status: Acute (4) Metabolic acidosis: Status: Acute Plan Yao has advanced CKD with superimposed KWAME. Underlying CKD due to diabetic nephropathy based on biopsy. KWAME due to hypoperfusion in the setting of acute cholecystitis. No evidence of obstructive uropathy. Severe anemia. -multifactor Suggestions Hold diuretics. Agree with IV hydration. Would supplement intravenous bicarbonate. Can use half-normal saline with 2 amps of sodium bicarbonate. Keep intake more than output. Continue to avoid nephrotoxic agents and avoid hypotension. Transfuse PRBC as needed. Adjust all medications for EGFR of less than 50 mL/minute At present there is no absolute indication for dialysis. She will follow closely along with the team Procedures Date of Service Date of Service: 04/23/24
[2024-04-20 11:21] LABS: Glucose, Whole Blood 82 mg/dL (60-115)
[2024-04-20 11:33] LABS: Vancomycin Random 26.3 mcg/mL (15-20)
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
[2024-04-20 12:49] LABS: Glucose, Whole Blood 83 mg/dL (60-115)
--- NOTE | 2024-04-20 14:38 | MHC.CM.PN ---
EMR REVIEWED AND PER MD ROUNDS, PT IS NOT MEDICALLY CLEARED FOR DC. PT MAY NEED SURGICAL INTRVENTION. CM WILL CONTINUE TO FOLLOW FOR ANY CHANGE TO DC PLAN.
--- NOTE | 2024-04-20 14:40 | P.OP_ITS ---
Operative Note Operative Note Date of Service: 04/20/24 Narrative: Preoperative diagnosis: Acute cholecystitis, cholelithiasis, obstructive jaundice Postoperative diagnosis: Same Procedure: Laparoscopic converted to open partial cholecystectomy Surgeon: Vaibhav Rosenbaum MD, Jarred Elise MD Machine Tool Electrician: Anesthesia: General endotracheal Indications for procedure: 58-year-old male patient presenting with complaints of abdominal pain in the epigastrium and right upper quadrant of unknown duration. Patient presented to the emergency department for further evaluation. He was noted to be jaundice with tenderness in the epigastrium and right upper quadrant. Workup revealed evidence of acute cholecystitis due to cholelithiasis. MRI was negative for common duct stone but was suggestive of a Mirizzi's syndrome. Operative findings: Contracted gallbladder with a single large gallstone at the neck. Densely adherent stomach, duodenal and omental to the liver edge and gallbladder. Purulent fluid around the gallbladder wall and within the gallbladder. Specimen: Gallbladder and gallstone Estimated blood loss: 20 mL Complications: None Drains: Eric-Ley 10. Procedure details: Patient was brought to the OR and placed in a supine position. After administering general anesthesia the patient's abdomen was prepped with ChloraPrep and draped in a sterile fashion. A surgical time-out was called the consent confirmed. Venodyne boots were in place. Patient previously been on antibiotics. Local anesthesia consisting of 0.5% Sensorcaine was infiltrated in the periumbilical region. A 5 mm incision was then made with a scalpel. Veress needle was then inserted while elevating the abdominal cavity with towel clips. After positive drop test the abdomen was insufflated to a pressure of 15 mmHg. The Veress needle was removed and a 5 mm trocar inserted. The abdomen was explored. Dense adhesions were noted to the gallbladder surface and liver edge. Approximately 30 mL of bilious appearing fluid was noted within the abdominal cavity. The 12 mm trocar was then placed in an epigastric region under direct vision. Two 5 mm trocars were placed in the right upper quadrant. The patient was placed in a reverse Trendelenburg position and rotated to the left. The liver was elevated and attempts made to mobilize the stomach and duodenal as well as omentum off of the gallbladder surface. These were noted to be extremely densely adherent to the gallbladder wall which would increase the risk of injury to the bowel and stomach. The decision was made to convert to an open procedure. Gavi incision was then made in the right upper quadrant proximally 2 fingerbreadths below the costal margin. This carried out through subcutaneous tissue through external rectus sheath. Fibers of the rectus muscle and external oblique muscle were then divided using electrocautery. Posterior sheath was entered and peritoneum divided. Abdomen was then fully entered. Hemostasis was assured using electrocautery. A self retaining retractor was placed in the incision. Blunt dissection was then used to dissect the stomach and duodenal off the undersurface of the gallbladder. A contracted gallbladder was identified. This was grasped with a Mely clamp. Further blunt dissection was used to further dissect the gallbladder proximally. Dense adhesions were noted at this level. There was marked inflammation and phlegmon formation. The gallbladder was then dissected off the liver edge using electrocautery. A abscess collection was drained located within the liver substance suggestive of a perforated gallbladder wall. This was further dissected more proximally. The cystic artery was identified and clipped using hemoclips. Because of the dense adhesions was decided to perform a partial cystectomy rather than risk injury to the stomach and small bowel. The gallbladder was opened. A stone forceps was used to remove a large impacting gallstone noted at the neck of the gallbladder. The upper 2/3 of the gallbladder was then resected. No attempt was made to close the gallbladder given the marked inflammation surrounding it. A Eric- Ley drain was then placed at the gallbladder fossa and brought out through the lateral trocar site. This was secured using a 2-0 nylon suture. Abdomen was then irrigated thoroughly with saline solution and suctioned dry. No bleeding or bile leak could be identified. Retractors were then removed. Posterior sheath and peritoneum were then closed using a running 0 Polysorb suture. Anterior rectus sheath was closed using a running 0 Polysorb suture. Skin was then closed in all incisions using skin bubba. Sterile dressings were then applied. The patient tolerated the procedure well. Sponge, instrument, and needle counts reported as correct. The patient was transferred to PACU in stable condition.
--- NOTE | 2024-04-20 15:24 | HO.PM.IMPN ---
Subjective Subjective Date of Service: 04/20/24 Interval History: abd pain ,possible acute cholecytitis Review of Systems Abdominal pain seems similar Denies any fever or chills or cough or phlegm. Physical Exam Vital Signs: Vital Signs: Last Vital Signs Temp 99.1 F 04/20/24 14:38 Pulse 79 04/20/24 15:08 Resp 16 04/20/24 15:08 BP 119/55 L 04/20/24 15:08 Pulse Ox 99 04/20/24 15:08 O2 Del Method Simple Mask 04/20/24 15:08 O2 Flow Rate 6 04/20/24 15:08 BMI result Body Mass Index 23.4 Appearance: Alert.? Oriented X3.? cvs: rrr, [id number] , no murmur res: clear to auscultation ,no rhonchii or wheezing abd: no rebound or guarding ,ruq pain ,bs present . ext pulses present , no cyanosis . neuro: axo3 , nonfocal. Objective Data Active Medications Amlodipine Besylate (Amlodipine Besylate 10 Mg Tablet) 10 mg PO DAILY [facility]; Protocol Last Admin: 04/19/24 07:57 Dose: 10 mg Documented By: KADY Atorvastatin Calcium (Atorvastatin Calcium 80 Mg Tablet) 80 mg PO DAILY [facility] Last Admin: 04/20/24 09:10 Dose: 80 mg Documented By: FACUNDO Benztropine Mesylate (Benztropine Mesylate 0.5 Mg Tablet) 0.5 mg PO DAILY [facility] Last Admin: 04/20/24 09:10 Dose: 0.5 mg Documented By: FACUNDO Bumetanide (Bumetanide 1 Mg Tablet) 2 mg PO BID [facility]; Protocol Last Admin: 04/19/24 07:57 Dose: 2 mg Documented By: KADY Carvedilol (Carvedilol 6.25 Mg Tablet) 6.25 mg PO BID [facility]; Protocol Last Admin: 04/20/24 09:09 Dose: 6.25 mg Documented By: FACUNDO Diphenhydramine HCl (Diphenhydramine Hcl 25 Mg Capsule) 25 mg PO BEDTIME [facility] Last Admin: 04/19/24 20:13 Dose: 25 mg Documented By: TALON Fentanyl (Fentanyl Citrate/Pf 100 Mcg/2 Ml Vial) 50 mcg IVPUSH Q5M PRN; Protocol PRN Reason: Pain, Severe (Pain Scale 7-10) Stop: 04/20/24 18:39 Ferrous Sulfate (Ferrous Sulfate 324 Mg Tablet.Dr) 324 mg PO DAILY [facility] Last Admin: 04/20/24 09:10 Dose: 324 mg Documented By: FACUNDO Gabapentin (Gabapentin 100 Mg Capsule) 100 mg PO BID [facility] Last Admin: 04/20/24 09:10 Dose: 100 mg Documented By: FACUNDO Glucose (Glucose Gel 15 Gm Gel..Gram.) 15 gm PO Q15M PRN; Protocol PRN Reason: per Hypoglycemia Standing Ord. Hydralazine HCl (Hydralazine Hcl 50 Mg Tablet) 150 mg PO BID [facility]; Protocol Last Admin: 04/20/24 09:10 Dose: 150 mg Documented By: FACUNDO Piperacillin Sod/Tazobactam (Sod 4.5 gm/ Sodium Chloride) 100 mls @ 200 mls/hr IV Q12H [facility] Last Infusion: 04/20/24 05:41 Dose: Infused Documented By: TALNO Dextrose (D10) 250 mls @ 750 mls/hr IV Q15M PRN; Protocol PRN Reason: per Hypoglycemia Standing Ord. Dextrose/Sodium Chloride (D5ns) 1,000 mls @ 80 mls/hr IVCONT .[id number] [facility] Last Admin: 04/20/24 09:47 Dose: 80 mls/hr Documented By: FACUNDO Vancomycin HCl 500 mg/ Sodium (Chloride) 110 mls @ 110 mls/hr IV ONCE ONE Stop: 04/20/24 12:46 Insulin Human Lispro (Insulin Lispro 100 Unit/Ml 3 Ml Vial) 0 unit SUBCUT QIDACHS [facility]; Protocol Last Admin: 04/20/24 11:16 Dose: Not Given Documented By: FACUNDO Non-Admin Reason: No Insulin Coverage Magnesium Hydroxide (Milk Of Magnesia 30 Ml Oral.Susp) 30 ml PO DAILY PRN PRN Reason: Constipation Morphine Sulfate (Morphine Sulfate 4 Mg/Ml Cartridge) 4 mg IVPUSH Q4H PRN; Protocol PRN Reason: Pain, Severe (Pain Scale 7-10) Last Admin: 04/20/24 07:47 Dose: 4 mg Documented By: FACUNDO Ondansetron HCl (Ondansetron Hcl 4 Mg/2 Ml Vial) 4 mg IVPUSH Q8H PRN PRN Reason: Nausea and Vomiting Last Admin: 04/20/24 07:46 Dose: 4 mg Documented By: FACUNDO Ondansetron HCl (Ondansetron Hcl 4 Mg/2 Ml Vial) 4 mg IVPUSH ONCE PRN PRN Reason: Nausea and Vomiting Stop: 04/20/24 18:39 Oxycodone HCl (Oxycodone Hcl Immed Release 5 Mg Tablet) 5 mg PO Q6H PRN PRN Reason: Pain, Moderate(Pain Scale 4-6) Last Admin: 04/20/24 09:10 Dose: 5 mg Documented By: FACUNDO Pharmacy Consult (Consult Rx Vancomycin Dosing) 1 each MISCELLANE DAILY PRN PRN Reason: Consult order Sodium Chloride (0.9 % Sodium Chloride Flush 3 Ml Syringe) 3 ml IVFLUSH QSHIFT [facility] Last Admin: 04/20/24 09:11 Dose: 3 ml Documented By: FACUNDO Tamsulosin HCl (Tamsulosin Hcl 0.4 Mg Capsule) 0.4 mg PO DAILY [facility] Last Admin: 04/20/24 09:10 Dose: 0.4 mg Documented By: FACUNDO Trazodone HCl (Trazodone Hcl 50 Mg Tablet) 50 mg PO BEDTIME MRX1 PRN PRN Reason: Insomnia Last Admin: 04/18/24 21:01 Dose: 50 mg Documented By: JASMINA Ziprasidone (Ziprasidone 60 Mg Capsule) 60 mg PO BID [facility] Last Admin: 04/20/24 09:09 Dose: 60 mg Documented By: FACUNDO Labs 04/20/24 08:19 04/20/24 08:19 Labs: Laboratory Results - last 24 hr 04/19/24 04/19/24 04/19/24 14:18 16:26 20:03 Anion Gap Estim Creat Clear Calc Estimated GFR POC Glucose 100 159 H Random Glucose Calcium Total Bilirubin AST ALT Alkaline Phosphatase Total Protein Albumin Random Vancomycin Blood Type A Positive Antibody Screen NEGATIVE Crossmatch See Detail 04/20/24 04/20/24 04/20/24 07:26 08:19 10:52 Anion Gap 18 Estim Creat Clear Calc 14.0 Estimated GFR 13 POC Glucose 75 Random Glucose 78 Calcium 7.6 L D Total Bilirubin 6.6 H AST 78 H ALT 199 H Alkaline Phosphatase 623 H Total Protein 5.8 L Albumin 2.7 L Random Vancomycin 26.3 H* Blood Type Antibody Screen Crossmatch 04/20/24 04/20/24 11:14 12:45 Anion Gap Estim Creat Clear Calc Estimated GFR POC Glucose 82 83 Random Glucose Calcium Total Bilirubin AST ALT Alkaline Phosphatase Total Protein Albumin Random Vancomycin Blood Type Antibody Screen Crossmatch Microbiology Microbiology Results: Microbiology 04/18/24 17:06 Blood Culture - Preliminary Blood - Venous Prelim: GPC Gram Stain only 04/18/24 17:06 Blood Culture - Preliminary Blood - Venous No growth after 24 hours. Assessment and Plan (1) Choledocholithiasis: Status: Acute (2) Acute cholecystitis: Status: Acute Assessment and Plan: day-3: 57 year old male with chronic normocytic anemia, htn, hld, diabetic polyneuropathy, diabetic nephropathy, chronic pain syndrome, insulin dependent type 2 diabetes, cocaine abuse, nephrotic syndrome, CKD stage 4, diastolic heart failure, and depression admitted for further management of acute cholecystitis/choledocholithiasis with obstructive jaundice. acute cholecystitis/choledocholithiasis with obstructive jaundice: CT abdomen/pelvis negative for visible biliary ductal dilatation and no radiopaque choledocholithiasis. abdominal ultrasound shows normal-appearing liver and nonvisualization of the common bile duct without any intrahepatic biliary ductal dilatation. There is also cholelithiasis and findings consistent with acute cholecystitis and positive sonographic Lanza's sign but no mural edema or pericholecystic fluid. bilirubin trending up,alk phos similar alt/ast improving No leukocytosis or fevers. No sepsis mrcp: Moderate intrahepatic biliary ductal dilatation. The common duct is of normal caliber measuring 5 mm distally. There is 1.2 cm focal signal dropout of the common duct at the joan hepatis most likely related to the mass effect from a stone within the gallbladder. 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 There is gallbladder wall thickening and gallbladder wall edema with intraluminal gallstones. Trace perihepatic free fluid. Consider acute cholecystitis. blood cultures1/2 seems gram postive cocci in cluster ( coagulase neg abiola) plan: given vanco x1 dose ,vanco trouh is 26.3 ,hold vanco ,will repeat vanco levels . no need of further vanco since blood culture -coagulase neg abiola. Continue IV Zosyn, pain management prn, antiemetics prn s/p Laparoscopic converted to open partial cholecystectomy-tolerated porcedure well insulin-dependent type 2 diabetes with hyperglycemia-last hemoglobin A1c 6.7%. clear liquid diet monitre fs,hold lantus ,avoid sliding scale coverage below 200. donna on CKD stage 4- possible multifactorial (npo, vanco,diuretics ) 1/2ns with 2 amps bicarb@ ,now on clear liquid diet ,hold diuretics vanco stopped as above. heart failure preserved ejection fraction hold bumex and donna. HTN Continue carvedilol, hydralazine hold amlodipine for 1 day since npo. -Follow BPs Cocaine abuse-Utox pending -consider addiction med consult if needed anemia of chronic disease -H/H above transfusion threshold, baseline DVT prophylaxis- heparin Full code Pt requires inpt need to stay: acute cholecystitis and cholecystsitis with obstructive jaundice requiring further imaging for further evaluation,donna- IV antibiotics, iv fluids-expert consultation, and possible surgical intervention. Plan lft's also little improving ,bilirubin elevated Quality Stroke Does the patient have a stroke diagnosis?: No VTE Prior VTE?: No VTE Risk Level:: Medical - moderate - high VTE Device Contraindication: Treatment Not Indicated VTE Drug Contraindication: N/A - Med Ordered
[2024-04-20] MEDS: Acetaminophen 1,000 MG/100 ML PIGGYBACK 400 MG IV ×2 (15:33→17:09)
--- NOTE | 2024-04-20 15:59 | MHC.RECOVRN ---
Attempted to meet with pt. Pt in surgery. Resources left at bedside. [facility] to follow up over the weekend.
--- NOTE | 2024-04-20 16:40 | W.PM.IDCN ---
History of Present Illness Data of Consult Service Date: 04/20/24 Requesting physician: Fadia Rubi Primary Care Provider: Allison Montilla MD HPI Reason for consult: vomiting,diarrhea,bacteremia He presents with nausea,vomiting and diarrhea worse over last day and comes to ER 04/18. He has intrahepatic duct dilatation and mass stone lodged in ducts to gallbladder. He just had open cholecystectomy and has ELAINA drains in. Blood culture coagulase negative staph. Review of Systems Review of Systems: Yes Unobtainable due to mental condition [facility] Past Medical History Medical History Anemia Congestive heart failure Nephrotic syndrome Diastolic heart failure Anemia Pneumonia Diabetic nephropathy Anemia Chronic pain syndrome Diabetic polyneuropathy Vitamin D deficiency Depression HTN (hypertension) HLD (hyperlipidemia) T2DM (type 2 diabetes mellitus) Family History Family History Father Colon cancer Mother History of kidney problems T2DM (type 2 diabetes mellitus) Sister T2DM (type 2 diabetes mellitus) Family history: reviewed and not pertinent Surgical History Surgical History Status post biopsy of kidney Hx of colonoscopy Hx of rotator cuff surgery Social History Social History Household Members: Family Household Members Other:: 2 Housing: Apartment Do you presently have visiting nurse or other home services: Yes (1/wk) Alcohol intake: former Comment: allowed to walk in room Patient Tobacco Use Status: Never used Tobacco Second Hand Smoke Exposure: No Substance Use Type: Crack/Cocaine Advance Directives Date on File: 04/28/23 service: No Current occupational status: disabled Current occupation: right handed Meds Allergies Allergy/AdvReac Type Severity Reaction Status Date / Time No Known Allergies Allergy Verified 04/18/24 11:30 [No Known Allergies*] Active Medications: Current Medications Amlodipine Besylate (Amlodipine Besylate 10 Mg Tablet) 10 mg PO DAILY [facility]; Protocol Last Admin: 04/19/24 07:57 Dose: 10 mg Atorvastatin Calcium (Atorvastatin Calcium 80 Mg Tablet) 80 mg PO DAILY [facility] Last Admin: 04/20/24 09:10 Dose: 80 mg Benztropine Mesylate (Benztropine Mesylate 0.5 Mg Tablet) 0.5 mg PO DAILY [facility] Last Admin: 04/20/24 09:10 Dose: 0.5 mg Bumetanide (Bumetanide 1 Mg Tablet) 2 mg PO BID [facility]; Protocol Last Admin: 04/19/24 07:57 Dose: 2 mg Carvedilol (Carvedilol 6.25 Mg Tablet) 6.25 mg PO BID [facility]; Protocol Last Admin: 04/20/24 09:09 Dose: 6.25 mg Diphenhydramine HCl (Diphenhydramine Hcl 25 Mg Capsule) 25 mg PO BEDTIME [facility] Last Admin: 04/19/24 20:13 Dose: 25 mg Ferrous Sulfate (Ferrous Sulfate 324 Mg Tablet.Dr) 324 mg PO DAILY [facility] Last Admin: 04/20/24 09:10 Dose: 324 mg Gabapentin (Gabapentin 100 Mg Capsule) 100 mg PO BID [facility] Last Admin: 04/20/24 09:10 Dose: 100 mg Glucose (Glucose Gel 15 Gm Gel..Gram.) 15 gm PO Q15M PRN; Protocol PRN Reason: per Hypoglycemia Standing Ord. Hydralazine HCl (Hydralazine Hcl 50 Mg Tablet) 150 mg PO BID [facility]; Protocol Last Admin: 04/20/24 09:10 Dose: 150 mg Piperacillin Sod/Tazobactam (Sod 4.5 gm/ Sodium Chloride) 100 mls @ 200 mls/hr IV Q12H [facility] Last Infusion: 04/20/24 05:41 Dose: Infused Dextrose (D10) 250 mls @ 750 mls/hr IV Q15M PRN; Protocol PRN Reason: per Hypoglycemia Standing Ord. Dextrose/Sodium Chloride (D5ns) 1,000 mls @ 80 mls/hr IVCONT .[id number] [facility] Last Admin: 04/20/24 09:47 Dose: 80 mls/hr Vancomycin HCl 500 mg/ Sodium (Chloride) 110 mls @ 110 mls/hr IV ONCE ONE Stop: 04/20/24 12:46 Acetaminophen (Ofirmev) 1,000 mg in 100 mls @ 400 mls/hr IV Q6H [facility] Stop: 04/21/24 10:14 Last Infusion: 04/20/24 16:22 Dose: Infused Insulin Human Lispro (Insulin Lispro 100 Unit/Ml 3 Ml Vial) 0 unit SUBCUT QIDACHS [facility]; Protocol Last Admin: 04/20/24 11:16 Dose: Not Given Magnesium Hydroxide (Milk Of Magnesia 30 Ml Oral.Susp) 30 ml PO DAILY PRN PRN Reason: Constipation Morphine Sulfate (Morphine Sulfate 4 Mg/Ml Cartridge) 4 mg IVPUSH Q4H PRN; Protocol PRN Reason: Pain, Severe (Pain Scale 7-10) Last Admin: 04/20/24 07:47 Dose: 4 mg Ondansetron HCl (Ondansetron Hcl 4 Mg/2 Ml Vial) 4 mg IVPUSH Q8H PRN PRN Reason: Nausea and Vomiting Last Admin: 04/20/24 07:46 Dose: 4 mg Oxycodone HCl (Oxycodone Hcl Immed Release 5 Mg Tablet) 5 mg PO Q6H PRN PRN Reason: Pain, Moderate(Pain Scale 4-6) Last Admin: 04/20/24 09:10 Dose: 5 mg Pharmacy Consult (Consult Rx Vancomycin Dosing) 1 each MISCELLANE DAILY PRN PRN Reason: Consult order Sodium Chloride (0.9 % Sodium Chloride Flush 3 Ml Syringe) 3 ml IVFLUSH QSHIFT [facility] Last Admin: 04/20/24 09:11 Dose: 3 ml Tamsulosin HCl (Tamsulosin Hcl 0.4 Mg Capsule) 0.4 mg PO DAILY [facility] Last Admin: 04/20/24 09:10 Dose: 0.4 mg Trazodone HCl (Trazodone Hcl 50 Mg Tablet) 50 mg PO BEDTIME MRX1 PRN PRN Reason: Insomnia Last Admin: 04/18/24 21:01 Dose: 50 mg Ziprasidone (Ziprasidone 60 Mg Capsule) 60 mg PO BID [facility] Last Admin: 04/20/24 09:09 Dose: 60 mg Home Medications ?Medication ?Instructions ?Recorded ?Confirmed ?Last Taken ?Type insulin glargine 100 unit/mL (3 35 unit subcut DAILY 12/22/20 04/18/24 04/17/24 History mL) subcutaneous pen (Lantus Solostar U-100 Insulin) insulin lispro 100 unit/mL 14 unit subcut TIDAC 12/22/20 04/18/24 04/17/24 History subcutaneous pen (Humalog KwikPen (U-100) Insulin) diphenhydramine HCl 25 mg capsule 25 mg PO BEDTIME 04/18/23 04/18/24 04/17/24 History (Benadryl) tamsulosin 0.4 mg capsule 0.4 mg PO DAILY 04/18/23 04/18/24 04/17/24 History ziprasidone HCl 60 mg capsule 60 mg PO BID 04/18/23 04/18/24 04/17/24 History (Geodon) atorvastatin 80 mg tablet 80 mg PO DAILY 05/23/23 04/18/24 04/17/24 History benztropine 0.5 mg tablet 0.5 mg DAILY 10/14/23 04/18/24 04/17/24 History trazodone 50 mg tablet 50 - 100 mg PO BEDTIME PRN Insomnia 10/14/23 04/18/24 04/17/24 History gabapentin 100 mg capsule 100 mg PO BID 11/10/23 04/18/24 04/17/24 History dulaglutide 3 mg/0.5 mL 3 mg subcut WE 04/18/24 04/18/24 04/11/24 History subcutaneous pen injector (Trulicity) Physical Exam Vital Signs: Vital Signs: Last Vital Signs Temp 99 F 04/20/24 15:53 Pulse 76 04/20/24 15:53 Resp 18 04/20/24 15:53 BP 114/52 L 04/20/24 15:53 Pulse Ox 96 04/20/24 15:53 O2 Del Method Nasal Cannula 04/20/24 15:53 O2 Flow Rate 2 04/20/24 15:53 BMI result Body Mass Index 23.4 Const: Other: sleepy postop General: cooperative HEENT: Head: Yes normal to inspection Face and sinus: Yes normal facial exam Mouth: Normal oral and palatal mucosa present Teeth and gingiva: dentition normal Eyes: General: appearance normal, both eyes and all related structures Pupils: Equal, round and reactive pupils present Resp: Effort & Inspection: normal respiratory effort Cardio: Rate: regular rate Rhythm: regular rhythm GI: Palpation (GI): Soft to palpation and nontender : General: Yes no CVA tenderness Back/Spine/Pelvis: Back: no CVA tenderness Skin: General skin exam: no rashes or lesions noted Neuro: General: moves all extremities Cranial nerves: Yes Equal, round and reactive pupils present Extrem: General: Yes normal to inspection Psych: Appearance: grossly normal Results Labs 04/20/24 08:19 04/20/24 08:19 Labs: Short CBC 04/20/24 Range/Units 08:19 Hgb 9.3 L D (14.0-18.0) g/dl Hct 26.3 L D (42.0-52.0) % BMP 04/20/24 08:19 Sodium 136 Potassium 4.2 Chloride 107 Carbon Dioxide 15 L BUN 62 H Creatinine 4.71 H* Calcium 7.6 L D Liver Function 04/20/24 Range/Units 08:19 Total Bilirubin 6.6 H (0.0-1.0) mg/dL AST 78 H (5-37) U/L ALT 199 H (0-40) U/L Alkaline Phosphatase 623 H (39-117) U/L Albumin 2.7 L (3.5-5.0) g/dL Microbiology Microbiology Results: Microbiology 04/18/24 17:06 Blood - Venous Blood Culture - Preliminary Coag negative Staphylococcus 04/18/24 17:06 Blood - Venous Blood Culture - Preliminary No growth after 24 hours. Assessment and Plan (1) Acute cholecystitis: Status: Acute (2) Obstructive jaundice: Status: Acute Plan He has possible gram negative/anerobic bacteria involved. There is no evidence of staph aureus. Would stop Vancomycin. Zosyn for now and await blood cultures. Possibly several days Zosyn and then Augmentin total one week. Check GI panel as diarrhea.
[2024-04-20 17:16] LABS: Glucose, Whole Blood 81 mg/dL (60-115)
[2024-04-20] MEDS: Sodium Bicarbonate 8.4% 150 MEQ in Dextrose 5 % 850 ML 80 MEQ IV (18:29)
[2024-04-20 19:50] LABS: Glucose, Whole Blood 164 mg/dL (60-115)
[2024-04-20] MEDS: Insulin Lispro 100 UNIT/ML 3 ML VIAL SUBCUT (20:03)
[2024-04-20] MEDS: diphenhydrAMINE HCL 25 MG CAPSULE PO (20:04)
[2024-04-21] VITALS: BP 117/58; PULSE 70; RESP 16; TEMP 36.6; O2SAT 94
--- NOTE | 2024-04-21 00:35 | MHC.PIE ---
p; pt unable to void? bladder scanned for over 450. note; pt had issue voiding since admission i; dr garcia notified. new order greco e; will cont to monitor
[2024-04-21 04:00] VITALS: BP 128/61; PULSE 73; RESP 16; TEMP 36.4; O2SAT 97
[2024-04-21] MEDS: Piperacillin Sodium/Tazobactam 4.5 GM in 0.9 % Sodium Chloride 100 ML IV ×2 (04:41→17:48)
[2024-04-21] MEDS: Morphine Sulfate 4 MG/ML CARTRIDGE IVPUSH ×2 (04:53→14:48)
[2024-04-21 06:54] LABS: MANUAL DIFF FLAG NO
[2024-04-21 07:03] LABS: Basophils Percent Auto 0.1 % (0-2); Hematocrit 27.1 % (42.0-52.0); Hemoglobin 9.4 g/dl (14.0-18.0); Imm Gran Abs Auto 0.11 X10*3/uL (0.00-0.03); Imm Gran Pct Auto 0.6 % (0.0-0.4); Lymphocytes Absolute Auto 0.8 X10*3/uL (1.2-4.9); Lymphocytes Percent Auto 4.3 % (20-40); Mean Corpuscular HGB Conc 34.7 g/dl (31.0-36.0); Mean Corpuscular Hemoglobin 29.8 pg (27.0-33.0); Mean Platelet Volume 10.5 fL (9.4-12.4); Monocytes Percent Auto 5.7 % (2-11); Neutrophils Absolute Auto 15.8 x10*3/uL (2.0-8.3); Neutrophils Percent Auto 89.3 % (45-73); Platelet Count 167 X10*3/uL (160-400); Red Blood Count 3.15 X10*6/uL (4.60-5.80); White Blood Count 17.7 X10*3/uL (4.8-10.8)
[2024-04-21 07:20] VITALS: BP 129/63; PULSE 72; RESP 14; TEMP 36.2; O2SAT 95
[2024-04-21 07:46] LABS: Glucose, Whole Blood 269 mg/dL (60-115)
[2024-04-21 07:47] LABS: Alanine Aminotransferase 146 U/L (0-40); Albumin Level 2.7 g/dL (3.5-5.0); Alkaline Phosphatase 474 U/L (39-117); Anion Gap 17 (12-20); Aspartate Amino Transferase 56 U/L (5-37); Bilirubin Direct 3.7 mg/dL (0.0-0.5); Bilirubin Total 4.3 mg/dL (0.0-1.0); Blood Urea Nitrogen 71 mg/dL (9-16); Carbon Dioxide 18 mmol/L (22-29); Chloride 98 mmol/L (96-108); Creatinine Clr Calc Pharmacy 12.3; Estimated Glomerular Filt Rate 11; Glucose Random 305 mg/dL (60-115); Potassium 4.3 mmol/L (3.3-5.1); Sodium 129 mmol/L (135-145)
[2024-04-21] MEDS: Lactated Ringers 1,000 ML 80 ML IVCONT (09:18)
[2024-04-21] MEDS: Insulin Lispro 100 UNIT/ML 3 ML VIAL SUBCUT ×4 (09:22→20:37)
[2024-04-21] MEDS: Atorvastatin Calcium 80 MG TABLET PO (09:23)
[2024-04-21] MEDS: Ziprasidone 60 MG CAPSULE PO ×2 (09:23→20:37)
[2024-04-21] MEDS: Gabapentin 100 MG CAPSULE PO ×2 (09:23→20:37)
[2024-04-21] MEDS: Ferrous Sulfate 324 MG TABLET.DR PO (09:23)
[2024-04-21] MEDS: Benztropine Mesylate 0.5 MG TABLET PO (09:23)
[2024-04-21] MEDS: Tamsulosin HCL 0.4 MG CAPSULE PO (09:23)
[2024-04-21 10:30] LABS: Vancomycin Random 20.5 mcg/mL (15-20)
[2024-04-21] MEDS: Albumin Human 25 % 100 ML IV ×3 (11:10→22:26)
[2024-04-21 11:20] LABS: Glucose, Whole Blood 234 mg/dL (60-115)
--- NOTE | 2024-04-21 11:48 | P.PNIM_ITS ---
Subjective Subjective Date of Service: 04/21/24 Interval History: abd pain ,possible acute cholecytitis Review of Systems abd pain seems improved significantly no fevers as per patient/documentation-producing urine. Physical Exam 2 Vital Signs: Vital Signs: Last Vital Signs Temp 97.1 F 04/21/24 07:20 Pulse 72 04/21/24 07:20 Resp 14 04/21/24 07:20 BP 129/63 04/21/24 07:20 Pulse Ox 95 04/21/24 07:20 O2 Del Method Room Air 04/21/24 07:20 O2 Flow Rate 2 04/20/24 15:53 BMI result Body Mass Index 23.4 Appearance: Alert.? Oriented X3.? cvs: rrr, [id number] . res: clear to auscultation ,no rhonchii or wheezing abd: no rebound or guarding ,ruq pain ,bs present . ext pulses present , no cyanosis . neuro: axo3 , nonfocal. Objective Data Active Medications Amlodipine Besylate (Amlodipine Besylate 10 Mg Tablet) 10 mg PO DAILY [facility]; Protocol Last Admin: 04/19/24 07:57 Dose: 10 mg Documented By: KADY Atorvastatin Calcium (Atorvastatin Calcium 80 Mg Tablet) 80 mg PO DAILY [facility] Last Admin: 04/21/24 09:23 Dose: 80 mg Documented By: TAWANA Benztropine Mesylate (Benztropine Mesylate 0.5 Mg Tablet) 0.5 mg PO DAILY [facility] Last Admin: 04/21/24 09:23 Dose: 0.5 mg Documented By: TAWANA Bumetanide (Bumetanide 1 Mg Tablet) 2 mg PO BID [facility]; Protocol Last Admin: 04/19/24 07:57 Dose: 2 mg Documented By: KADY Carvedilol (Carvedilol 6.25 Mg Tablet) 6.25 mg PO BID [facility]; Protocol Last Admin: 04/21/24 09:24 Dose: Not Given Documented By: TAWANA Non-Admin Reason: Physician Held Med Diphenhydramine HCl (Diphenhydramine Hcl 25 Mg Capsule) 25 mg PO BEDTIME [facility] Last Admin: 04/20/24 20:04 Dose: 25 mg Documented By: CINTHIA Ferrous Sulfate (Ferrous Sulfate 324 Mg Tablet.) 324 mg PO DAILY [facility] Last Admin: 04/21/24 09:23 Dose: 324 mg Documented By: TAWANA Gabapentin (Gabapentin 100 Mg Capsule) 100 mg PO BID [facility] Last Admin: 04/21/24 09:23 Dose: 100 mg Documented By: TAWANA Glucose (Glucose Gel 15 Gm Gel..Gram.) 15 gm PO Q15M PRN; Protocol PRN Reason: per Hypoglycemia Standing Ord. Hydralazine HCl (Hydralazine Hcl 50 Mg Tablet) 150 mg PO BID [facility]; Protocol Last Admin: 04/21/24 09:24 Dose: Not Given Documented By: TAWANA Non-Admin Reason: Physician Held Med Piperacillin Sod/Tazobactam (Sod 4.5 gm/ Sodium Chloride) 100 mls @ 200 mls/hr IV Q12H [facility] Last Infusion: 04/21/24 05:13 Dose: Infused Documented By: CINTHIA Dextrose (D10) 250 mls @ 750 mls/hr IV Q15M PRN; Protocol PRN Reason: per Hypoglycemia Standing Ord. Lactated Ringer's (Lr) 1,000 mls @ 80 mls/hr IVCONT .[id number] [facility] Last Admin: 04/21/24 09:18 Dose: 80 mls/hr Documented By: TAWANA Albumin Human (Kedbumin 25 %) 100 mls @ 100 mls/hr IV Q6H [facility] Stop: 04/22/24 05:44 Last Admin: 04/21/24 11:10 Dose: 100 mls/hr Documented By: TAWANA Insulin Human Lispro (Insulin Lispro 100 Unit/Ml 3 Ml Vial) 0 unit SUBCUT QIDACHS [facility]; Protocol Last Admin: 04/21/24 09:22 Dose: 6 unit Documented By: TAWANA Magnesium Hydroxide (Milk Of Magnesia 30 Ml Oral.Susp) 30 ml PO DAILY PRN PRN Reason: Constipation Morphine Sulfate (Morphine Sulfate 4 Mg/Ml Cartridge) 4 mg IVPUSH Q4H PRN; Protocol PRN Reason: Pain, Severe (Pain Scale 7-10) Last Admin: 04/21/24 04:53 Dose: 4 mg Documented By: CINTHIA Ondansetron HCl (Ondansetron Hcl 4 Mg/2 Ml Vial) 4 mg IVPUSH Q8H PRN PRN Reason: Nausea and Vomiting Last Admin: 04/20/24 07:46 Dose: 4 mg Documented By: FACUNDO Oxycodone HCl (Oxycodone Hcl Immed Release 5 Mg Tablet) 5 mg PO Q6H PRN PRN Reason: Pain, Moderate(Pain Scale 4-6) Last Admin: 04/20/24 09:10 Dose: 5 mg Documented By: FACUNDO Sodium Chloride (0.9 % Sodium Chloride Flush 3 Ml Syringe) 3 ml IVFLUSH QSHIFT [facility] Last Admin: 04/21/24 09:16 Dose: Not Given Documented By: TAWANA Non-Admin Reason: IV Running Tamsulosin HCl (Tamsulosin Hcl 0.4 Mg Capsule) 0.4 mg PO DAILY [facility] Last Admin: 04/21/24 09:23 Dose: 0.4 mg Documented By: TAWANA Trazodone HCl (Trazodone Hcl 50 Mg Tablet) 50 mg PO BEDTIME MRX1 PRN PRN Reason: Insomnia Last Admin: 04/18/24 21:01 Dose: 50 mg Documented By: JASMINA Ziprasidone (Ziprasidone 60 Mg Capsule) 60 mg PO BID [facility] Last Admin: 04/21/24 09:23 Dose: 60 mg Documented By: TAWANA Labs 04/21/24 06:31 04/21/24 06:31 Labs: Laboratory Results - last 24 hr 04/20/24 04/20/24 04/20/24 12:45 17:12 19:22 MCV MCH MCHC RDW Plt Count MPV Immature Gran % (Auto) Neut % (Auto) Lymph % (Auto) [place]rie % (Auto) Eos % (Auto) Baso % (Auto) Lymph # (Auto) [place]rie # (Auto) Eos # (Auto) Baso # (Auto) Abs Immat Gran (auto) Absolute Neuts (auto) Absolute Nucleated RBC Nucleated RBC % (auto) Anion Gap Estim Creat Clear Calc Estimated GFR POC Glucose 83 81 164 H Random Glucose Calcium Total Bilirubin Direct Bilirubin AST ALT Alkaline Phosphatase Total Protein Albumin Random Vancomycin 04/21/24 04/21/24 04/21/24 06:31 07:15 09:53 MCV 86.0 MCH 29.8 MCHC 34.7 RDW 16.0 Plt Count 167 MPV 10.5 Immature Gran % (Auto) 0.6 H Neut % (Auto) 89.3 H Lymph % (Auto) 4.3 L G[place]rie % (Auto) 5.7 Eos % (Auto) 0.0 Baso % (Auto) 0.1 Lymph # (Auto) 0.8 L [place]rie # (Auto) 1.0 Eos # (Auto) 0.0 Baso # (Auto) 0.0 Abs Immat Gran (auto) 0.11 H Absolute Neuts (auto) 15.8 H Absolute Nucleated RBC 0.000 Nucleated RBC % (auto) 0.0 Anion Gap 17 Estim Creat Clear Calc 12.3 Estimated GFR 11 POC Glucose 269 H Random Glucose 305 H Calcium 7.0 L D Total Bilirubin 4.3 H Direct Bilirubin 3.7 H AST 56 H ALT 146 H Alkaline Phosphatase 474 H Total Protein 6.0 L Albumin 2.7 L Random Vancomycin 20.5 H 04/21/24 11:16 MCV MCH MCHC RDW Plt Count MPV Immature Gran % (Auto) Neut % (Auto) Lymph % (Auto) [place]uthrie % (Auto) Eos % (Auto) Baso % (Auto) Lymph # (Auto) [place]rie # (Auto) Eos # (Auto) Baso # (Auto) Abs Immat Gran (auto) Absolute Neuts (auto) Absolute Nucleated RBC Nucleated RBC % (auto) Anion Gap Estim Creat Clear Calc Estimated GFR POC Glucose 234 H Random Glucose Calcium Total Bilirubin Direct Bilirubin AST ALT Alkaline Phosphatase Total Protein Albumin Random Vancomycin Microbiology Microbiology Results: Microbiology 04/20/24 02:51 Blood Culture - Preliminary Blood - Venous No growth after 24 hours. 04/20/24 02:50 Blood Culture - Preliminary Blood - Venous No growth after 24 hours. 04/18/24 17:06 Blood Culture - Preliminary Blood - Venous No growth after 48 hours. 04/18/24 17:06 Blood Culture - Preliminary Blood - Venous Coag negative Staphylococcus Assessment and Plan (1) Acute cholecystitis: Status: Acute Assessment and Plan: day-4: 57 year old male with chronic normocytic anemia, htn, hld, diabetic polyneuropathy, diabetic nephropathy, chronic pain syndrome, insulin dependent type 2 diabetes, cocaine abuse, nephrotic syndrome, CKD stage 4, diastolic heart failure, and depression admitted for further management of acute cholecystitis/choledocholithiasis with obstructive jaundice. acute cholecystitis/choledocholithiasis with obstructive jaundice: CT abdomen/pelvis negative for visible biliary ductal dilatation and no radiopaque choledocholithiasis. abdominal ultrasound shows normal-appearing liver and nonvisualization of the common bile duct without any intrahepatic biliary ductal dilatation. There is also cholelithiasis and findings consistent with acute cholecystitis and positive sonographic Lanza's sign but no mural edema or pericholecystic fluid. Lft;s improving, no feveres leukocytosis tredning up-possible reactive to surgery. mrcp: Moderate intrahepatic biliary ductal dilatation. The common duct is of normal caliber measuring 5 mm distally. There is 1.2 cm focal signal dropout of the common duct at the joan hepatis most likely related to the mass effect from a stone within the gallbladder.possible acute cholecystitis. 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 blood cultures1/2 seems gram postive cocci in cluster ( coagulase neg abiola) repeat blood culture neg@24hrs. plan: s/p Laparoscopic converted to open partial cholecystectomy (on 04/20)- day2. given vanco x1 dose ,vanco trouh is 26.3 -repeat vanco levels 20.5,off vanco. Continue IV Zosyn, pain management prn, antiemetics prn surgery follow up for advancing diet. Mild acute hyponatremia (multifactorial dec po intake /diuretics): when corrected for glucose ,sodium 132. moniter sodium levels , encouraged for po intake ,hold diuretics. insulin-dependent type 2 diabetes with hyperglycemia-last hemoglobin A1c 6.7%. clear liquid diet monitre fs,added lantus ,fs with sliding scale coverage. donna on CKD stage 4- possible multifactorial-has hx of dm nephropathy (was npo, vanco,diuretics,cocaine positive ) bicarb improved with bicarb drip,ivf changed to LR gentle ,will add ivf gentle ,hold diuretics ,vanco stopped as above. nephrology eval. heart failure preserved ejection fraction: stable ,seems somewhat dry. hold bumex due to donna and dec po intake. HTN: bp stable for now hold carvedilol, hydralazine, amlodipine . Cocaine abuse-cocaine positive addiction med consult if needed acute ob ch anemia(aocd) iron levels slightly low, tibc low,iron sats normal, received 2 prbc -h/h is stable in 9.4 range DVT prophylaxis- mech devices due to anemia requiring transfusion. Full code Pt requires inpt need to stay: acute cholecystitis and cholecystsitis with obstructive jaundice requiring further imaging for further evaluation- IV antibiotics,donna- iv fluids,anemia -needed transfusions : for these need electrolytes and prbc ,s/p open partial cholecystectomy, need surgerical follow up. (2) Obstructive jaundice: Status: Acute (3) Acute cholecystitis: Status: Acute (4) Anemia due to chronic kidney disease: Status: Acute (5) Hyponatremia: Status: Acute Plan lft's also little improving ,bilirubin elevated Quality Stroke Does the patient have a stroke diagnosis?: No VTE Prior VTE?: No VTE Risk Level:: Medical - moderate - high VTE Device Contraindication: Treatment Not Indicated VTE Drug Contraindication: N/A - Med Ordered
--- NOTE | 2024-04-21 12:18 | P.PNGS_ITS ---
Subjective Subjective Date of Service: 04/21/24 Interval history: pt complaining of pain Physical Exam 2 Vital Signs: Vital Signs: Last Vital Signs Temp 97.1 F 04/21/24 07:20 Pulse 72 04/21/24 07:20 Resp 14 04/21/24 07:20 BP 129/63 04/21/24 07:20 Pulse Ox 95 04/21/24 07:20 O2 Del Method Room Air 04/21/24 07:20 O2 Flow Rate 2 04/20/24 15:53 BMI result Body Mass Index 23.4 GI: Other: abdo firm tender drain with serosanguinous maybe a little more bile tinted Objective Data Active Medications Amlodipine Besylate (Amlodipine Besylate 10 Mg Tablet) 10 mg PO DAILY [facility]; Protocol Last Admin: 04/19/24 07:57 Dose: 10 mg Documented By: KADY Atorvastatin Calcium (Atorvastatin Calcium 80 Mg Tablet) 80 mg PO DAILY [facility] Last Admin: 04/21/24 09:23 Dose: 80 mg Documented By: TAWANA Benztropine Mesylate (Benztropine Mesylate 0.5 Mg Tablet) 0.5 mg PO DAILY [facility] Last Admin: 04/21/24 09:23 Dose: 0.5 mg Documented By: TAWANA Bumetanide (Bumetanide 1 Mg Tablet) 2 mg PO BID [facility]; Protocol Last Admin: 04/19/24 07:57 Dose: 2 mg Documented By: KADY Carvedilol (Carvedilol 6.25 Mg Tablet) 6.25 mg PO BID [facility]; Protocol Last Admin: 04/21/24 09:24 Dose: Not Given Documented By: TAWANA Non-Admin Reason: Physician Held Med Diphenhydramine HCl (Diphenhydramine Hcl 25 Mg Capsule) 25 mg PO BEDTIME [facility] Last Admin: 04/20/24 20:04 Dose: 25 mg Documented By: CINTHIA Ferrous Sulfate (Ferrous Sulfate 324 Mg Tablet.) 324 mg PO DAILY [facility] Last Admin: 04/21/24 09:23 Dose: 324 mg Documented By: TAWANA Gabapentin (Gabapentin 100 Mg Capsule) 100 mg PO BID [facility] Last Admin: 04/21/24 09:23 Dose: 100 mg Documented By: TAWANA Glucose (Glucose Gel 15 Gm Gel..Gram.) 15 gm PO Q15M PRN; Protocol PRN Reason: per Hypoglycemia Standing Ord. Hydralazine HCl (Hydralazine Hcl 50 Mg Tablet) 150 mg PO BID [facility]; Protocol Last Admin: 04/21/24 09:24 Dose: Not Given Documented By: TAWANA Non-Admin Reason: Physician Held Med Piperacillin Sod/Tazobactam (Sod 4.5 gm/ Sodium Chloride) 100 mls @ 200 mls/hr IV Q12H [facility] Last Infusion: 04/21/24 05:13 Dose: Infused Documented By: CINTHIA Dextrose (D10) 250 mls @ 750 mls/hr IV Q15M PRN; Protocol PRN Reason: per Hypoglycemia Standing Ord. Albumin Human (Kedbumin 25 %) 100 mls @ 100 mls/hr IV Q6H [facility] Stop: 04/22/24 05:44 Last Admin: 04/21/24 11:10 Dose: 100 mls/hr Documented By: TAWANA Insulin Glargine (Insulin Glargine,Hum.Rec.Anlog 100 Unit/Ml 10 Ml Vial) 10 unit SUBCUT DAILY [facility] Insulin Human Lispro (Insulin Lispro 100 Unit/Ml 3 Ml Vial) 0 unit SUBCUT QIDACHS [facility]; Protocol Last Admin: 04/21/24 09:22 Dose: 6 unit Documented By: TAWANA Magnesium Hydroxide (Milk Of Magnesia 30 Ml Oral.Susp) 30 ml PO DAILY PRN PRN Reason: Constipation Morphine Sulfate (Morphine Sulfate 4 Mg/Ml Cartridge) 4 mg IVPUSH Q4H PRN; Protocol PRN Reason: Pain, Severe (Pain Scale 7-10) Last Admin: 04/21/24 04:53 Dose: 4 mg Documented By: CINTHIA Ondansetron HCl (Ondansetron Hcl 4 Mg/2 Ml Vial) 4 mg IVPUSH Q8H PRN PRN Reason: Nausea and Vomiting Last Admin: 04/20/24 07:46 Dose: 4 mg Documented By: FACUNDO Oxycodone HCl (Oxycodone Hcl Immed Release 5 Mg Tablet) 5 mg PO Q6H PRN PRN Reason: Pain, Moderate(Pain Scale 4-6) Last Admin: 04/20/24 09:10 Dose: 5 mg Documented By: FACUNDO Sodium Chloride (0.9 % Sodium Chloride Flush 3 Ml Syringe) 3 ml IVFLUSH QSHIFT [facility] Last Admin: 04/21/24 09:16 Dose: Not Given Documented By: TAWANA Non-Admin Reason: IV Running Tamsulosin HCl (Tamsulosin Hcl 0.4 Mg Capsule) 0.4 mg PO DAILY [facility] Last Admin: 04/21/24 09:23 Dose: 0.4 mg Documented By: TAWANA Trazodone HCl (Trazodone Hcl 50 Mg Tablet) 50 mg PO BEDTIME MRX1 PRN PRN Reason: Insomnia Last Admin: 04/18/24 21:01 Dose: 50 mg Documented By: JASMINA Ziprasidone (Ziprasidone 60 Mg Capsule) 60 mg PO BID [facility] Last Admin: 04/21/24 09:23 Dose: 60 mg Documented By: TAWANA Labs 04/21/24 06:31 04/21/24 06:31 Labs: Laboratory Results - last 24 hr 04/20/24 04/20/24 04/20/24 12:45 17:12 19:22 MCV MCH MCHC RDW Plt Count MPV Immature Gran % (Auto) Neut % (Auto) Lymph % (Auto) Barton % (Auto) Eos % (Auto) Baso % (Auto) Lymph # (Auto) [place] # (Auto) Eos # (Auto) Baso # (Auto) Abs Immat Gran (auto) Absolute Neuts (auto) Absolute Nucleated RBC Nucleated RBC % (auto) Anion Gap Estim Creat Clear Calc Estimated GFR POC Glucose 83 81 164 H Random Glucose Calcium Total Bilirubin Direct Bilirubin AST ALT Alkaline Phosphatase Total Protein Albumin Random Vancomycin 04/21/24 04/21/24 04/21/24 06:31 07:15 09:53 MCV 86.0 MCH 29.8 MCHC 34.7 RDW 16.0 Plt Count 167 MPV 10.5 Immature Gran % (Auto) 0.6 H Neut % (Auto) 89.3 H Lymph % (Auto) 4.3 L Barton % (Auto) 5.7 Eos % (Auto) 0.0 Baso % (Auto) 0.1 Lymph # (Auto) 0.8 L Barton # (Auto) 1.0 Eos # (Auto) 0.0 Baso # (Auto) 0.0 Abs Immat Gran (auto) 0.11 H Absolute Neuts (auto) 15.8 H Absolute Nucleated RBC 0.000 Nucleated RBC % (auto) 0.0 Anion Gap 17 Estim Creat Clear Calc 12.3 Estimated GFR 11 POC Glucose 269 H Random Glucose 305 H Calcium 7.0 L D Total Bilirubin 4.3 H Direct Bilirubin 3.7 H AST 56 H ALT 146 H Alkaline Phosphatase 474 H Total Protein 6.0 L Albumin 2.7 L Random Vancomycin 20.5 H 04/21/24 11:16 MCV MCH MCHC RDW Plt Count MPV Immature Gran % (Auto) Neut % (Auto) Lymph % (Auto) Barton % (Auto) Eos % (Auto) Baso % (Auto) Lymph # (Auto) [place] # (Auto) Eos # (Auto) Baso # (Auto) Abs Immat Gran (auto) Absolute Neuts (auto) Absolute Nucleated RBC Nucleated RBC % (auto) Anion Gap Estim Creat Clear Calc Estimated GFR POC Glucose 234 H Random Glucose Calcium Total Bilirubin Direct Bilirubin AST ALT Alkaline Phosphatase Total Protein Albumin Random Vancomycin Microbiology Microbiology Results: Microbiology 04/20/24 02:51 Blood Culture - Preliminary Blood - Venous No growth after 24 hours. 04/20/24 02:50 Blood Culture - Preliminary Blood - Venous No growth after 24 hours. 04/18/24 17:06 Blood Culture - Preliminary Blood - Venous No growth after 48 hours. 04/18/24 17:06 Blood Culture - Preliminary Blood - Venous Coag negative Staphylococcus Procedures Date of Service Date of Service: 04/21/24 Progress Note: A&P Assessment and plan (1) Acute cholecystitis: Status: Acute Assessment and Plan: pt s/p lap to open roshni - doing ok - lfts improving and tyson draining cont with tsyon and slow advance diet pt noted to have worsening renal function -? some hypoperfusion - hopefully transient - med team following Time Spent With Patient Time: Total time managing care of this patient today ____ minutes. Quality Stroke Does the patient have a stroke diagnosis?: No VTE Prior VTE?: No VTE Risk Level:: Medical - moderate - high VTE Device Contraindication: Treatment Not Indicated VTE Drug Contraindication: N/A - Med Ordered
[2024-04-21] MEDS: Insulin Glargine,Hum.rec.anlog 100 UNIT/ML 10 ML VIAL 10 UNIT SUBCUT (12:21)
[2024-04-21] MEDS: oxyCODONE HCl Immed Release 5 MG TABLET PO (12:23)
--- NOTE | 2024-04-21 12:34 | MHC.RECOVRN ---
Met with pt in 379 after consult placed to Addiction Medicine for cocaine use disorder.? Chart review completed and received report from floor nurse Lisa Tobias. Also utilized services of java integration developer [employer]. Pt had presented to the ED with vomiting x 3 days with epigastric pain. Pt was admitted to the floor for acute cholecystitis and choledocholithiasis with obstructive jaundice requiring further imaging for further evaluation, IV antibiotics, expert consultation, and possible c surgical intervention.? Pt received?procedural intervention on 04/20. ?? Upon assessment pt is lying in bed resting. He awoke easily to voice.? ? Pt offered information in relation to his cocaine use to include that he is currently cutting down on his own and has recently gone from using 100.00/day to 20.00/day . He reported that when he uses it, he uses intranasal. Pt is not interested in any clinic services for MAT at this time. He would like to quit on his own . T/W reviewed information with pt re: resources for the [facility], community resources and also presented on harm reduction resources and education. ? Pt not interested in any further follow up at this time.? ACS team available as needed throughout pt's stay.? Report to ACS team.
[2024-04-21 15:23] VITALS: BP 133/65; PULSE 73; RESP 18; TEMP 36.1; O2SAT 96
[2024-04-21 16:06] LABS: Glucose, Whole Blood 211 mg/dL (60-115)
--- NOTE | 2024-04-21 18:57 | HO.POSTANES ---
Post Anesthesia Evaluation Post Anesthesia Evaluation Date of Service: 04/21/24 Vital Signs: Vital Signs Temp Pulse Resp BP Pulse Ox O2 Del Method 04/21/24 15:23 96.9 F 73 18 133/65 96 Room Air 04/21/24 07:20 97.1 F 72 14 129/63 95 Room Air Anesthesia: General Endotracheal-GETA Mental Status: Awake Pain Control: Satisfactory Nausea/Vomiting: None Hydration: Adequate Anesthesia-Related Issues: No Anes. Related Issues
[2024-04-21 19:00] VITALS: BP 133/71; PULSE 74; RESP 18; TEMP 36.3; O2SAT 93
[2024-04-21 20:04] LABS: Glucose, Whole Blood 222 mg/dL (60-115)
[2024-04-21] MEDS: carvediloL 6.25 MG TABLET PO (20:37)
[2024-04-21] MEDS: Morphine Sulfate 4 MG/ML CARTRIDGE 2 MG IVPUSH (20:37)
[2024-04-21] MEDS: diphenhydrAMINE HCL 25 MG CAPSULE PO (20:37)
[2024-04-21] MEDS: 0.9 % Sodium Chloride Flush 3 ML SYRINGE IVFLUSH (20:38)
[2024-04-21] MEDS: Lactated Ringers 500 ML 60 ML IVCONT (20:49)
[2024-04-22] VITALS (9 sets, daily range): BP systolic 139–162; BP diastolic 67–74; PULSE 77–90; RESP 16–20; TEMP 36.1–36.9; O2SAT 88–94
[2024-04-22] MEDS: Morphine Sulfate 4 MG/ML CARTRIDGE 2 MG IVPUSH (03:37)
[2024-04-22] MEDS: Albumin Human 25 % 100 ML IV ×3 (03:38→21:45)
[2024-04-22] MEDS: Piperacillin Sodium/Tazobactam 4.5 GM in 0.9 % Sodium Chloride 100 ML IV ×2 (03:47→18:26)
[2024-04-22 07:15] LABS: Anion Gap 20 (12-20); Blood Urea Nitrogen 77 mg/dL (9-16); Calcium 6.4 mg/dL (8.4-10.2); Carbon Dioxide 16 mmol/L (22-29); Chloride 96 mmol/L (96-108); Glucose Random 178 mg/dL (60-115); Potassium 4.2 mmol/L (3.3-5.1); Sodium 128 mmol/L (135-145)
[2024-04-22 07:16] LABS: Creatinine Clr Calc Pharmacy 10.5; Estimated Glomerular Filt Rate 9
[2024-04-22 07:17] LABS: Hematocrit 22.4 % (42.0-52.0); Hemoglobin 7.8 g/dl (14.0-18.0); Mean Corpuscular HGB Conc 34.8 g/dl (31.0-36.0); Mean Corpuscular Hemoglobin 29.8 pg (27.0-33.0); Mean Corpuscular Volume 85.5 fL (80.0-98.0); Mean Platelet Volume 10.7 fL (9.4-12.4); Platelet Count 169 X10*3/uL (160-400); Red Blood Count 2.62 X10*6/uL (4.60-5.80); Red Cell Distribution Width 16.2 % (11.0-16.0); White Blood Count 13.3 X10*3/uL (4.8-10.8)
[2024-04-22 07:39] LABS: Glucose, Whole Blood 162 mg/dL (60-115)
[2024-04-22] MEDS: Ziprasidone 60 MG CAPSULE PO (08:07)
[2024-04-22] MEDS: Insulin Glargine,Hum.rec.anlog 100 UNIT/ML 10 ML VIAL 10 UNIT SUBCUT (08:07)
[2024-04-22] MEDS: Atorvastatin Calcium 80 MG TABLET PO (08:07)
[2024-04-22] MEDS: Ferrous Sulfate 324 MG TABLET.DR PO (08:07)
[2024-04-22] MEDS: Gabapentin 100 MG CAPSULE PO (08:07)
[2024-04-22] MEDS: Tamsulosin HCL 0.4 MG CAPSULE PO (08:07)
[2024-04-22] MEDS: Benztropine Mesylate 0.5 MG TABLET PO (08:07)
[2024-04-22] MEDS: Insulin Lispro 100 UNIT/ML 3 ML VIAL SUBCUT ×2 (08:08→21:44)
[2024-04-22 10:01] LABS: VBG HCO3 18 mmol/L (22-26); VBG pCO2 35 mmHg; VBG pH 7.31 (7.32-7.43); VBG pO2 71 mmHg
[2024-04-22 10:02] LABS: Venous Blood Gas Refer to POC result
[2024-04-22 10:25] LABS: Osmolality, Serum 307 mosm/kg (281-305)
[2024-04-22 11:09] LABS: Glucose, Whole Blood 142 mg/dL (60-115)
[2024-04-22] MEDS: Sodium Bicarbonate 650 MG TABLET PO ×3 (11:48→21:43)
[2024-04-22 13:17] LABS: Osmolality Urine 185 mosm/kg (373-1093); Potassium Urine Random 17.8 mmol/L; Sodium Urine Random < 20.0 mmol/L
[2024-04-22 13:49] LABS: Chloride Urine Random < 20.0 mmol/L
--- NOTE | 2024-04-22 14:18 | HO.PM.IMPN ---
Subjective Subjective Date of Service: 04/22/24 Interval History: abd pain ,possible acute cholecytitis ,hyponatremia Review of Systems abd pain seems improved significantly, but has mild abd distended. passing gases ,no bm's yet no fevers still producing urine Physical Exam Vital Signs: Vital Signs: Last Vital Signs Temp 97.7 F 04/22/24 07:40 Pulse 80 04/22/24 07:40 Resp 16 04/22/24 07:40 BP 152/67 H 04/22/24 07:40 Pulse Ox 94 04/22/24 07:40 O2 Del Method Room Air 04/22/24 07:40 O2 Flow Rate 2 04/20/24 15:53 BMI result Body Mass Index 23.4 Appearance: Alert.? Oriented X2,able to answer most questions and follow commands.? cvs: rrr, [id number] . res: clear to auscultation ,no rhonchii or wheezing abd: no rebound or guarding ,somewhat distended ,bs present . ext pulses present , no cyanosis . neuro: axo3 , nonfocal. Objective Data Active Medications Amlodipine Besylate (Amlodipine Besylate 10 Mg Tablet) 10 mg PO DAILY [facility]; Protocol Last Admin: 04/19/24 07:57 Dose: 10 mg Documented By: KADY Atorvastatin Calcium (Atorvastatin Calcium 80 Mg Tablet) 80 mg PO DAILY [facility] Last Admin: 04/22/24 08:07 Dose: 80 mg Documented By: TAWANA Benztropine Mesylate (Benztropine Mesylate 0.5 Mg Tablet) 0.5 mg PO DAILY [facility] Last Admin: 04/22/24 08:07 Dose: 0.5 mg Documented By: TAWANA Bumetanide (Bumetanide 1 Mg Tablet) 2 mg PO BID [facility]; Protocol Last Admin: 04/19/24 07:57 Dose: 2 mg Documented By: KADY Carvedilol (Carvedilol 6.25 Mg Tablet) 6.25 mg PO BID [facility]; Protocol Last Admin: 04/22/24 10:59 Dose: Not Given Documented By: TAWANA Non-Admin Reason: Physician Held Med Diphenhydramine HCl (Diphenhydramine Hcl 25 Mg Capsule) 25 mg PO BEDTIME [facility] Last Admin: 04/21/24 20:37 Dose: 25 mg Documented By: CINTHIA Ferrous Sulfate (Ferrous Sulfate 324 Mg Tablet.) 324 mg PO DAILY [facility] Last Admin: 04/22/24 08:07 Dose: 324 mg Documented By: TAWANA Gabapentin (Gabapentin 100 Mg Capsule) 100 mg PO BID [facility] Last Admin: 04/22/24 08:07 Dose: 100 mg Documented By: TAWANA Glucose (Glucose Gel 15 Gm Gel..Gram.) 15 gm PO Q15M PRN; Protocol PRN Reason: per Hypoglycemia Standing Ord. Hydralazine HCl (Hydralazine Hcl 50 Mg Tablet) 150 mg PO BID [facility]; Protocol Last Admin: 04/21/24 09:24 Dose: Not Given Documented By: TAWANA Non-Admin Reason: Physician Held Med Piperacillin Sod/Tazobactam (Sod 4.5 gm/ Sodium Chloride) 100 mls @ 200 mls/hr IV Q12H [facility] Last Infusion: 04/22/24 04:21 Dose: Infused Documented By: CINTHIA Dextrose (D10) 250 mls @ 750 mls/hr IV Q15M PRN; Protocol PRN Reason: per Hypoglycemia Standing Ord. Insulin Glargine (Insulin Glargine,Hum.Rec.Anlog 100 Unit/Ml 10 Ml Vial) 10 unit SUBCUT DAILY [facility] Last Admin: 04/22/24 08:07 Dose: 10 unit Documented By: TAWANA Insulin Human Lispro (Insulin Lispro 100 Unit/Ml 3 Ml Vial) 0 unit SUBCUT QIDACHS [facility]; Protocol Last Admin: 04/22/24 11:37 Dose: Not Given Documented By: TAWANA Non-Admin Reason: No Insulin Coverage Magnesium Hydroxide (Milk Of Magnesia 30 Ml Oral.Susp) 30 ml PO DAILY PRN PRN Reason: Constipation Morphine Sulfate (Morphine Sulfate 4 Mg/Ml Cartridge) 2 mg IVPUSH Q4H PRN; Protocol PRN Reason: Pain, Severe (Pain Scale 7-10) Last Admin: 04/22/24 03:37 Dose: 2 mg Documented By: CINTHIA Ondansetron HCl (Ondansetron Hcl 4 Mg/2 Ml Vial) 4 mg IVPUSH Q8H PRN PRN Reason: Nausea and Vomiting Last Admin: 04/20/24 07:46 Dose: 4 mg Documented By: FACUNDO Oxycodone HCl (Oxycodone Hcl Immed Release 5 Mg Tablet) 5 mg PO Q6H PRN PRN Reason: Pain, Moderate(Pain Scale 4-6) Last Admin: 04/21/24 12:23 Dose: 5 mg Documented By: TAWANA Sodium Bicarbonate (Sodium Bicarbonate 650 Mg Tablet) 650 mg PO QID [facility] Last Admin: 04/22/24 11:48 Dose: 650 mg Documented By: TAWANA Sodium Chloride (0.9 % Sodium Chloride Flush 3 Ml Syringe) 3 ml IVFLUSH QSHIFT [facility] Last Admin: 04/22/24 10:59 Dose: Not Given Documented By: TAWANA Non-Admin Reason: IV Running Tamsulosin HCl (Tamsulosin Hcl 0.4 Mg Capsule) 0.4 mg PO DAILY [facility] Last Admin: 04/22/24 08:07 Dose: 0.4 mg Documented By: TAWANA Trazodone HCl (Trazodone Hcl 50 Mg Tablet) 50 mg PO BEDTIME MRX1 PRN PRN Reason: Insomnia Last Admin: 04/18/24 21:01 Dose: 50 mg Documented By: JASMINA Ziprasidone (Ziprasidone 60 Mg Capsule) 60 mg PO BID [facility] Last Admin: 04/22/24 08:07 Dose: 60 mg Documented By: TAWANA Labs 04/22/24 15:21 04/22/24 05:51 Labs: Laboratory Results - last 24 hr 04/21/24 04/21/24 04/22/24 15:58 19:54 05:51 MCV 85.5 MCH 29.8 MCHC 34.8 RDW 16.2 H Plt Count 169 MPV 10.7 Absolute Nucleated RBC 0.000 Nucleated RBC % (auto) 0.0 VBG pH VBG pCO2 VBG pO2 VBG HCO3 VBG O2 Saturation VBG Base Excess Anion Gap 20 Estim Creat Clear Calc Cancelled Estimated GFR POC Glucose 211 H 222 H Random Glucose Osmolality Calcium Urine Osmolality Ur Random Sodium Ur Random Potassium Ur Random Chloride 04/22/24 04/22/24 04/22/24 05:51 05:51 07:36 MCV MCH MCHC RDW Plt Count MPV Absolute Nucleated RBC Nucleated RBC % (auto) VBG pH VBG pCO2 VBG pO2 VBG HCO3 VBG O2 Saturation VBG Base Excess Anion Gap Estim Creat Clear Calc 10.5 Estimated GFR Cancelled 9 POC Glucose 162 H Random Glucose 178 H Osmolality Calcium 6.4 L D Urine Osmolality Ur Random Sodium Ur Random Potassium Ur Random Chloride 04/22/24 04/22/24 04/22/24 09:43 09:47 11:05 MCV MCH MCHC RDW Plt Count MPV Absolute Nucleated RBC Nucleated RBC % (auto) VBG pH 7.31 L VBG pCO2 35 VBG pO2 71 VBG HCO3 18 L VBG O2 Saturation 94.0 VBG Base Excess -7.0 Anion Gap Estim Creat Clear Calc Estimated GFR POC Glucose 142 H Random Glucose Osmolality 307 H Calcium Urine Osmolality Ur Random Sodium Ur Random Potassium Ur Random Chloride 04/22/24 Unknown MCV MCH MCHC RDW Plt Count MPV Absolute Nucleated RBC Nucleated RBC % (auto) VBG pH VBG pCO2 VBG pO2 VBG HCO3 VBG O2 Saturation VBG Base Excess Anion Gap Estim Creat Clear Calc Estimated GFR POC Glucose Random Glucose Osmolality Calcium Urine Osmolality 185 L Ur Random Sodium < 20.0 Ur Random Potassium 17.8 Ur Random Chloride < 20.0 Microbiology Microbiology Results: Microbiology 04/20/24 02:51 Blood Culture - Preliminary Blood - Venous No growth after 48 hours. 04/20/24 02:50 Blood Culture - Preliminary Blood - Venous No growth after 48 hours. 04/18/24 17:06 Blood Culture - Final Blood - Venous Coag negative Staphylococcus Assessment and Plan (1) Acute cholecystitis: Status: Acute (2) CKD (chronic kidney disease): Status: Acute (3) Anemia: Status: Acute (4) Hyponatremia: Status: Acute Assessment and Plan: day-4 57 year old male with chronic normocytic anemia, htn, hld, diabetic polyneuropathy, diabetic nephropathy, chronic pain syndrome, insulin dependent type 2 diabetes, cocaine abuse, nephrotic syndrome, CKD stage 4, diastolic heart failure, and depression admitted for further management of acute cholecystitis/choledocholithiasis with obstructive jaundice. toxic metabolic encepahlopathy multifactroial(donna worseing ,painmeds-gabapentine ,geodon ,benadryl,opoids ,recent surgery): ph 7.31 ,cr worsening plan: hold all sedative meds neurochecks q4hr d/w nephro,nephrology will follow up also d/w ICU in detail -currently plan hold all sedatives ,moniter mental status acute cholecystitis/choledocholithiasis with obstructive jaundice: CT abdomen/pelvis negative for visible biliary ductal dilatation and no radiopaque choledocholithiasis. abdominal ultrasound shows normal-appearing liver and nonvisualization of the common bile duct without any intrahepatic biliary ductal dilatation. There is also cholelithiasis and findings consistent with acute cholecystitis and positive sonographic Lanza's sign but no mural edema or pericholecystic fluid. Lft;s improving, no fevers leukocytosis tredning down mrcp: Moderate intrahepatic biliary ductal dilatation. The common duct is of normal caliber measuring 5 mm distally. There is 1.2 cm focal signal dropout of the common duct at the joan hepatis most likely related to the mass effect from a stone within the gallbladder.possible acute cholecystitis. 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 blood cultures1/2 seems gram postive cocci in cluster ( coagulase neg abiola). repeat blood culture neg@48 hrs. plan: s/p Laparoscopic converted to open partial cholecystectomy (on 04/20)- day3. given vanco x1 dose ,vanco trouh is 26.3- 20.5-pending Continue IV Zosyn, pain management prn, antiemetics prn,surgery follow up for advancing diet. Mild acute hyponatremia (multifactorial dec po intake /diuretics: sodium in range [id number] related to dec po intake serum osmolarity 307,urine osm 185 urine sodium <20,potassium 17.8 ,cl <20 encouraged for po intake ,hold diuretics. mild hypocalcemia chronic -corrected for albumin 7.4 . added calcium gluconate ,po calcium insulin-dependent type 2 diabetes with hyperglycemia-last hemoglobin A1c 6.7%. clear liquid diet monitre fs,insulin donna on CKD stage 4- possible multifactorial-has hx of dm nephropathy (was npo, vanco,diuretics,cocaine positive ) bicarb improved with bicarb drip,ivf changed to LR gentle ,will add ivf gentle ,hold diuretics ,vanco stopped as above. nephrology eval. heart failure preserved ejection fraction: stable ,seems somewhat dry. hold bumex due to donna and dec po intake. HTN: bp stable for now hold carvedilol, hydralazine, amlodipine . Cocaine abuse-cocaine positive addiction med consult if needed acute ob ch anemia(aocd) iron levels slightly low, tibc low,iron sats normal, received 2 prbc - h/h in range of 9.4 -trending down slowly to 8.2/23.4 range DVT prophylaxis- mech devices due to anemia requiring transfusion. Full code Pt requires inpt need to stay: acute cholecystitis and cholecystsitis with obstructive jaundice requiring further imaging for further evaluation- IV antibiotics,donna- iv fluids,anemia -needed transfusions : for these need electrolytes and prbc ,s/p open partial cholecystectomy, need surgerical follow up. Quality Stroke Does the patient have a stroke diagnosis?: No VTE Prior VTE?: No VTE Risk Level:: Medical - moderate - high VTE Device Contraindication: Treatment Not Indicated VTE Drug Contraindication: N/A - Med Ordered
--- NOTE | 2024-04-22 14:44 | PM.PNGS ---
Subjective Subjective Date of Service: 04/22/24 Interval history: PATIENT SEEMS A LITTLE MORE CONFUSED AND OUT OF IT TODAY. Discussing with his sister she says there is times when he seems to be able to communicate better than others and there was a question of whether he was getting too much pain medication although his nurse says they did not give him any today. He has still putting a lot out of his ELAINA serosanguineous with some bilious tinge to it. His hematocrit has dropped his abdomen is distended Physical Exam Vital Signs: Vital Signs: Last Vital Signs Temp 97.7 F 04/22/24 07:40 Pulse 80 04/22/24 07:40 Resp 16 04/22/24 07:40 BP 152/67 H 04/22/24 07:40 Pulse Ox 94 04/22/24 07:40 O2 Del Method Room Air 04/22/24 07:40 O2 Flow Rate 2 04/20/24 15:53 BMI result Body Mass Index 23.4 GI: Other: Abdomen is distended little firmer some mild guarding in the right upper quadrant area hypo bowel sounds incisions look good. ELAINA drain has serosanguineous fluid and also little bilious material. Psych: Other: Patient seems a little confused although awake and responds. More grunting and short sentences Objective Data Active Medications Amlodipine Besylate (Amlodipine Besylate 10 Mg Tablet) 10 mg PO DAILY [facility]S [facility]CLUDE 234 BEDS AT THE [facility]; Protocol Last Admin: 04/19/24 07:57 Dose: 10 mg Documented By: KADY Atorvastatin Calcium (Atorvastatin Calcium 80 Mg Tablet) 80 mg PO DAILY [facility]S INCLUDE 234 BEDS AT THE [facility] Last Admin: 04/22/24 08:07 Dose: 80 mg Documented By: TAWANA Benztropine Mesylate (Benztropine Mesylate 0.5 Mg Tablet) 0.5 mg PO DAILY COUNTS INCLUDE 234 BEDS AT THE [facility] Last Admin: 04/22/24 08:07 Dose: 0.5 mg Documented By: TAWANA Bumetanide (Bumetanide 1 Mg Tablet) 2 mg PO BID [facility]S INCLUDE 234 BEDS AT THE [facility]; Protocol Last Admin: 04/19/24 07:57 Dose: 2 mg Documented By: KADY Carvedilol (Carvedilol 6.25 Mg Tablet) 6.25 mg PO BID [facility]S INCLUDE 234 BEDS AT THE [facility]; Protocol Last Admin: 04/22/24 10:59 Dose: Not Given Documented By: TAWANA Non-Admin Reason: Physician Held Med Diphenhydramine HCl (Diphenhydramine Hcl 25 Mg Capsule) 25 mg PO BEDTIME COUNTS INCLUDE 234 BEDS AT THE [facility] Last Admin: 04/21/24 20:37 Dose: 25 mg Documented By: CINTHIA Ferrous Sulfate (Ferrous Sulfate 324 Mg Tablet.Dr) 324 mg PO DAILY COUNTS INCLUDE 234 BEDS AT THE [facility] Last Admin: 04/22/24 08:07 Dose: 324 mg Documented By: TAWANA Gabapentin (Gabapentin 100 Mg Capsule) 100 mg PO BID COUNTS INCLUDE 234 BEDS AT THE [facility] Last Admin: 04/22/24 08:07 Dose: 100 mg Documented By: TAWANA Glucose (Glucose Gel 15 Gm Gel..Gram.) 15 gm PO Q15M PRN; Protocol PRN Reason: per Hypoglycemia Standing Ord. Hydralazine HCl (Hydralazine Hcl 50 Mg Tablet) 150 mg PO BID [facility]S INCLUDE 234 BEDS AT THE [facility]; Protocol Last Admin: 04/21/24 09:24 Dose: Not Given Documented By: TAWANA Non-Admin Reason: Physician Held Med Piperacillin Sod/Tazobactam (Sod 4.5 gm/ Sodium Chloride) 100 mls @ 200 mls/hr IV Q12H COUNTS INCLUDE 234 BEDS AT THE [facility] Last Infusion: 04/22/24 04:21 Dose: Infused Documented By: CINTHIA Dextrose (D10) 250 mls @ 750 mls/hr IV Q15M PRN; Protocol PRN Reason: per Hypoglycemia Standing Ord. Insulin Glargine (Insulin Glargine,Hum.Rec.Anlog 100 Unit/Ml 10 Ml Vial) 10 unit SUBCUT DAILY [facility]S INCLUDE 234 BEDS AT THE [facility] Last Admin: 04/22/24 08:07 Dose: 10 unit Documented By: TAWANA Insulin Human Lispro (Insulin Lispro 100 Unit/Ml 3 Ml Vial) 0 unit SUBCUT QIDACHS COUNTS INCLUDE 234 BEDS AT THE [facility]; Protocol Last Admin: 04/22/24 11:37 Dose: Not Given Documented By: TAWANA Non-Admin Reason: No Insulin Coverage Magnesium Hydroxide (Milk Of Magnesia 30 Ml Oral.Susp) 30 ml PO DAILY PRN PRN Reason: Constipation Morphine Sulfate (Morphine Sulfate 4 Mg/Ml Cartridge) 2 mg IVPUSH Q4H PRN; Protocol PRN Reason: Pain, Severe (Pain Scale 7-10) Last Admin: 04/22/24 03:37 Dose: 2 mg Documented By: CINTHIA Ondansetron HCl (Ondansetron Hcl 4 Mg/2 Ml Vial) 4 mg IVPUSH Q8H PRN PRN Reason: Nausea and Vomiting Last Admin: 04/20/24 07:46 Dose: 4 mg Documented By: FACUNDO Oxycodone HCl (Oxycodone Hcl Immed Release 5 Mg Tablet) 5 mg PO Q6H PRN PRN Reason: Pain, Moderate(Pain Scale 4-6) Last Admin: 04/21/24 12:23 Dose: 5 mg Documented By: TAWANA Sodium Bicarbonate (Sodium Bicarbonate 650 Mg Tablet) 650 mg PO QID COUNTS INCLUDE 234 BEDS AT THE [facility] Last Admin: 04/22/24 11:48 Dose: 650 mg Documented By: TAWANA Sodium Chloride (0.9 % Sodium Chloride Flush 3 Ml Syringe) 3 ml IVFLUSH QSHIFT COUNTS INCLUDE 234 BEDS AT THE [facility] Last Admin: 04/22/24 10:59 Dose: Not Given Documented By: TAWANA Non-Admin Reason: IV Running Tamsulosin HCl (Tamsulosin Hcl 0.4 Mg Capsule) 0.4 mg PO DAILY COUNTS INCLUDE 234 BEDS AT THE [facility] Last Admin: 04/22/24 08:07 Dose: 0.4 mg Documented By: TAWANA Trazodone HCl (Trazodone Hcl 50 Mg Tablet) 50 mg PO BEDTIME MRX1 PRN PRN Reason: Insomnia Last Admin: 04/18/24 21:01 Dose: 50 mg Documented By: JASMINA Ziprasidone (Ziprasidone 60 Mg Capsule) 60 mg PO BID COUNTS INCLUDE 234 BEDS AT THE [facility] Last Admin: 04/22/24 08:07 Dose: 60 mg Documented By: TAWANA Labs 04/22/24 15:21 04/22/24 05:51 Labs: Laboratory Results - last 24 hr 04/21/24 04/21/24 04/22/24 15:58 19:54 05:51 MCV 85.5 MCH 29.8 MCHC 34.8 RDW 16.2 H Plt Count 169 MPV 10.7 Absolute Nucleated RBC 0.000 Nucleated RBC % (auto) 0.0 VBG pH VBG pCO2 VBG pO2 VBG HCO3 VBG O2 Saturation VBG Base Excess Anion Gap 20 Estim Creat Clear Calc Cancelled Estimated GFR POC Glucose 211 H 222 H Random Glucose Osmolality Calcium Urine Osmolality Ur Random Sodium Ur Random Potassium Ur Random Chloride 04/22/24 04/22/24 04/22/24 05:51 05:51 07:36 MCV MCH MCHC RDW Plt Count MPV Absolute Nucleated RBC Nucleated RBC % (auto) VBG pH VBG pCO2 VBG pO2 VBG HCO3 VBG O2 Saturation VBG Base Excess Anion Gap Estim Creat Clear Calc 10.5 Estimated GFR Cancelled 9 POC Glucose 162 H Random Glucose 178 H Osmolality Calcium 6.4 L D Urine Osmolality Ur Random Sodium Ur Random Potassium Ur Random Chloride 04/22/24 04/22/24 04/22/24 09:43 09:47 11:05 MCV MCH MCHC RDW Plt Count MPV Absolute Nucleated RBC Nucleated RBC % (auto) VBG pH 7.31 L VBG pCO2 35 VBG pO2 71 VBG HCO3 18 L VBG O2 Saturation 94.0 VBG Base Excess -7.0 Anion Gap Estim Creat Clear Calc Estimated GFR POC Glucose 142 H Random Glucose Osmolality 307 H Calcium Urine Osmolality Ur Random Sodium Ur Random Potassium Ur Random Chloride 04/22/24 Unknown MCV MCH MCHC RDW Plt Count MPV Absolute Nucleated RBC Nucleated RBC % (auto) VBG pH VBG pCO2 VBG pO2 VBG HCO3 VBG O2 Saturation VBG Base Excess Anion Gap Estim Creat Clear Calc Estimated GFR POC Glucose Random Glucose Osmolality Calcium Urine Osmolality 185 L Ur Random Sodium < 20.0 Ur Random Potassium 17.8 Ur Random Chloride < 20.0 Microbiology Microbiology Results: Microbiology 04/20/24 02:51 Blood Culture - Preliminary Blood - Venous No growth after 48 hours. 04/20/24 02:50 Blood Culture - Preliminary Blood - Venous No growth after 48 hours. 04/18/24 17:06 Blood Culture - Final Blood - Venous Coag negative Staphylococcus Procedures Date of Service Date of Service: 04/22/24 Progress Note: A&P Assessment and plan (1) Acute cholecystitis: Status: Acute Plan Patient is status post laparoscopic converted to open cholecystectomy overall doing okay. He has multiple medical issues and right now is dealing with acute on chronic renal failure as well as anemia uncertain etiology. I think he has a little bit of an ileus going on and as a result we will back down to just clear liquids continue with the ELAINA drain. His LFTs were improving yesterday maybe repeat them tomorrow. Medical team to follow along to determine plan of care for his other issues mainly renal function and then his anemia. I doubt that he is bleeding significantly as we have the ELAINA drain and this is not showing a lot of blood. Time Spent With Patient Time: Total time managing care of this patient today ____ minutes. Quality Stroke Does the patient have a stroke diagnosis?: No VTE Prior VTE?: No VTE Risk Level:: Medical - moderate - high VTE Device Contraindication: Treatment Not Indicated VTE Drug Contraindication: N/A - Med Ordered
[2024-04-22 15:26] LABS: Hematocrit 23.4 % (42.0-52.0); Hemoglobin 8.2 g/dl (14.0-18.0)
[2024-04-22 16:03] LABS: Glucose, Whole Blood 141 mg/dL (60-115)
[2024-04-22 16:14] LABS: Vancomycin Random 18.3 mcg/mL (15-20)
--- NOTE | 2024-04-22 16:38 | PM.EVENT ---
Event Note Date of Service: 04/22/24 Event Note: Events noted KWAME due to ATN Hyponatremia Metabolic acidosis DC hypotonic fluids including D10 NaHCO3 PO DC Bumex Watch urine output Might need dialysis in 24 to 48 hrs if renal function does not improve Shall order temp HD catheterfor tomorrow Time Spent With Patient Time: Total time managing care of this patient today ____ minutes.
[2024-04-22] MEDS: 0.9 % Sodium Chloride Flush 3 ML SYRINGE IVFLUSH (16:50)
[2024-04-22 17:00] LABS: Alanine Aminotransferase 106 U/L (0-40); Albumin Level 3.7 g/dL (3.5-5.0); Alkaline Phosphatase 341 U/L (39-117); Aspartate Amino Transferase 48 U/L (5-37); Bilirubin Direct 1.8 mg/dL (0.0-0.5); Bilirubin Total 2.3 mg/dL (0.0-1.0); Total Protein 6.7 g/dL (6.5-8.0)
[2024-04-22] MEDS: bisacodyL 5 MG TABLET.DR 10 MG PO (17:32)
[2024-04-22] MEDS: Calcium Gluconate/NaCl,Iso-Osm 1 GM/50 ML PLAST..BAG IV (17:32)
--- NOTE | 2024-04-22 19:00 | PM.PNGS ---
Subjective Subjective Date of Service: 04/28/24 Interval history: Patient is doing well. More awake alert tolerating p.o. diet fine no abdominal pain. Physical Exam Vital Signs: Vital Signs: Last Vital Signs Temp 97.3 F 04/22/24 18:15 Pulse 86 04/22/24 18:15 Resp 19 04/22/24 18:15 BP 162/74 H 04/22/24 18:15 Pulse Ox 94 04/22/24 18:42 O2 Del Method Nasal Cannula 04/22/24 18:42 O2 Flow Rate 2 04/22/24 18:42 BMI result Body Mass Index 23.4 GI: Other: Abdomen is soft nontender dressings in place where his drain was pulled Objective Data Active Medications Amlodipine Besylate (Amlodipine Besylate 10 Mg Tablet) 10 mg PO DAILY [facility]; Protocol Last Admin: 04/19/24 07:57 Dose: 10 mg Documented By: KADY Atorvastatin Calcium (Atorvastatin Calcium 80 Mg Tablet) 80 mg PO DAILY [facility] Last Admin: 04/22/24 08:07 Dose: 80 mg Documented By: TAWANA Benztropine Mesylate (Benztropine Mesylate 0.5 Mg Tablet) 0.5 mg PO DAILY [facility] Last Admin: 04/22/24 08:07 Dose: 0.5 mg Documented By: TAWANA Bisacodyl (Bisacodyl 5 Mg Tablet.) 10 mg PO DAILY [facility] Last Admin: 04/22/24 17:32 Dose: 10 mg Documented By: TAWANA Bumetanide (Bumetanide 1 Mg Tablet) 2 mg PO BID [facility]; Protocol Last Admin: 04/19/24 07:57 Dose: 2 mg Documented By: KADY Calcium Carbonate (Calcium Carbonate 500 Mg Tablet) 500 mg PO DAILY [facility] Carvedilol (Carvedilol 6.25 Mg Tablet) 6.25 mg PO BID [facility]; Protocol Last Admin: 04/22/24 10:59 Dose: Not Given Documented By: TAWANA Non-Admin Reason: Physician Held Med Diphenhydramine HCl (Diphenhydramine Hcl 25 Mg Capsule) 25 mg PO BEDTIME [facility] Last Admin: 04/21/24 20:37 Dose: 25 mg Documented By: CINTHIA Docusate Sodium (Docusate Sodium 100 Mg Capsule) 100 mg PO BID [facility] Ferrous Sulfate (Ferrous Sulfate 324 Mg Tablet.) 324 mg PO DAILY [facility] Last Admin: 04/22/24 08:07 Dose: 324 mg Documented By: TAWANA Gabapentin (Gabapentin 100 Mg Capsule) 100 mg PO BID [facility] Last Admin: 04/22/24 08:07 Dose: 100 mg Documented By: TAWANA Glucose (Glucose Gel 15 Gm Gel..Gram.) 15 gm PO Q15M PRN; Protocol PRN Reason: per Hypoglycemia Standing Ord. Hydralazine HCl (Hydralazine Hcl 50 Mg Tablet) 150 mg PO BID [facility]; Protocol Last Admin: 04/21/24 09:24 Dose: Not Given Documented By: TAWANA Non-Admin Reason: Physician Held Med Piperacillin Sod/Tazobactam (Sod 4.5 gm/ Sodium Chloride) 100 mls @ 200 mls/hr IV Q12H [facility] Last Admin: 04/22/24 18:26 Dose: 200 mls/hr Documented By: BRENT Dextrose (D10) 250 mls @ 750 mls/hr IV Q15M PRN; Protocol PRN Reason: per Hypoglycemia Standing Ord. Albumin Human (Kedbumin 25 %) 100 mls @ 100 mls/hr IV Q6H [facility] Stop: 04/23/24 10:29 Last Infusion: 04/22/24 18:00 Dose: Infused Documented By: BRENT Insulin Glargine (Insulin Glargine,Hum.Rec.Anlog 100 Unit/Ml 10 Ml Vial) 10 unit SUBCUT DAILY [facility] Last Admin: 04/22/24 08:07 Dose: 10 unit Documented By: TAWANA Insulin Human Lispro (Insulin Lispro 100 Unit/Ml 3 Ml Vial) 0 unit SUBCUT QIDACHS [facility]; Protocol Last Admin: 04/22/24 17:28 Dose: Not Given Documented By: TAWANA Non-Admin Reason: No Insulin Coverage Magnesium Hydroxide (Milk Of Magnesia 30 Ml Oral.Susp) 30 ml PO DAILY PRN PRN Reason: Constipation Ondansetron HCl (Ondansetron Hcl 4 Mg/2 Ml Vial) 4 mg IVPUSH Q8H PRN PRN Reason: Nausea and Vomiting Last Admin: 04/20/24 07:46 Dose: 4 mg Documented By: FACUNDO Sodium Bicarbonate (Sodium Bicarbonate 650 Mg Tablet) 650 mg PO QID [facility] Last Admin: 04/22/24 17:32 Dose: 650 mg Documented By: TAWANA Sodium Chloride (0.9 % Sodium Chloride Flush 3 Ml Syringe) 3 ml IVFLUSH QSHIFT [facility] Last Admin: 04/22/24 16:50 Dose: 3 ml Documented By: IMANI Tamsulosin HCl (Tamsulosin Hcl 0.4 Mg Capsule) 0.4 mg PO DAILY [facility] Last Admin: 04/22/24 08:07 Dose: 0.4 mg Documented By: TAWANA Trazodone HCl (Trazodone Hcl 50 Mg Tablet) 50 mg PO BEDTIME MRX1 PRN PRN Reason: Insomnia Last Admin: 04/18/24 21:01 Dose: 50 mg Documented By: JASMINA Ziprasidone (Ziprasidone 60 Mg Capsule) 60 mg PO BID [facility] Last Admin: 04/22/24 08:07 Dose: 60 mg Documented By: TAWANA Labs 04/26/24 05:59 04/27/24 10:15 Labs: Laboratory Results - last 24 hr 04/21/24 04/22/24 04/22/24 19:54 05:51 05:51 MCV 85.5 MCH 29.8 MCHC 34.8 RDW 16.2 H Plt Count 169 MPV 10.7 Absolute Nucleated RBC 0.000 Nucleated RBC % (auto) 0.0 VBG pH VBG pCO2 VBG pO2 VBG HCO3 VBG O2 Saturation VBG Base Excess Anion Gap 20 Estim Creat Clear Calc Cancelled 10.5 Estimated GFR Cancelled POC Glucose 222 H Random Glucose Osmolality Calcium Total Bilirubin Direct Bilirubin AST ALT Alkaline Phosphatase Total Protein Albumin Urine Osmolality Ur Random Sodium Ur Random Potassium Ur Random Chloride Random Vancomycin 04/22/24 04/22/24 04/22/24 05:51 07:36 09:43 MCV MCH MCHC RDW Plt Count MPV Absolute Nucleated RBC Nucleated RBC % (auto) VBG pH VBG pCO2 VBG pO2 VBG HCO3 VBG O2 Saturation VBG Base Excess Anion Gap Estim Creat Clear Calc Estimated GFR 9 POC Glucose 162 H Random Glucose 178 H Osmolality 307 H Calcium 6.4 L D Total Bilirubin 2.3 H Direct Bilirubin 1.8 H AST 48 H ALT 106 H Alkaline Phosphatase 341 H Total Protein 6.7 Albumin 3.7 Urine Osmolality Ur Random Sodium Ur Random Potassium Ur Random Chloride Random Vancomycin 04/22/24 04/22/24 04/22/24 09:47 11:05 15:21 MCV MCH MCHC RDW Plt Count MPV Absolute Nucleated RBC Nucleated RBC % (auto) VBG pH 7.31 L VBG pCO2 35 VBG pO2 71 VBG HCO3 18 L VBG O2 Saturation 94.0 VBG Base Excess -7.0 Anion Gap Estim Creat Clear Calc Estimated GFR POC Glucose 142 H Random Glucose Osmolality Calcium Total Bilirubin Direct Bilirubin AST ALT Alkaline Phosphatase Total Protein Albumin Urine Osmolality Ur Random Sodium Ur Random Potassium Ur Random Chloride Random Vancomycin 18.3 04/22/24 04/22/24 15:47 Unknown MCV MCH MCHC RDW Plt Count MPV Absolute Nucleated RBC Nucleated RBC % (auto) VBG pH VBG pCO2 VBG pO2 VBG HCO3 VBG O2 Saturation VBG Base Excess Anion Gap Estim Creat Clear Calc Estimated GFR POC Glucose 141 H Random Glucose Osmolality Calcium Total Bilirubin Direct Bilirubin AST ALT Alkaline Phosphatase Total Protein Albumin Urine Osmolality 185 L Ur Random Sodium < 20.0 Ur Random Potassium 17.8 Ur Random Chloride < 20.0 Random Vancomycin Microbiology Microbiology Results: Microbiology 04/20/24 02:51 Blood Culture - Preliminary Blood - Venous No growth after 48 hours. 04/20/24 02:50 Blood Culture - Preliminary Blood - Venous No growth after 48 hours. Procedures Date of Service Date of Service: 04/28/24 Progress Note: A&P Assessment and plan (1) Acute cholecystitis: Status: Acute Assessment and Plan: Patient is status post cholecystectomy and overall doing better. From the surgical perspective everything is fine and plan to follow up with him as an outpatient in the office. Medical team still managing medical issues but it seems like his renal insufficiency and failure improving. Time Spent With Patient Time: Total time managing care of this patient today ____ minutes. Quality Stroke Does the patient have a stroke diagnosis?: No VTE Prior VTE?: No VTE Risk Level:: Medical - moderate - high VTE Device Contraindication: Treatment Not Indicated VTE Drug Contraindication: N/A - Med Ordered
--- NOTE | 2024-04-22 19:52 | PM.EVENT ---
Event Note Date of Service: 04/22/24 Event Note: 7:35 PM - Patient evalutated. VS are stable, blood pressure 161/67. He is quite lethargic. Open eyes only to sternal rubs. Do not answer questions. Just moaning. Venous gas blood, CBC, BMP and ammonia ordered STAT as well as head CT scan. Time Spent With Patient Time: Total time managing care of this patient today ____ minutes.
[2024-04-22 19:57] LABS: VBG Base Excess -6.7 mmol/L; VBG HCO3 16 mmol/L (22-26); VBG pCO2 24 mmHg; VBG pH 7.42 (7.32-7.43); VBG pO2 59 mmHg
[2024-04-22 19:57] LABS: Glucose, Whole Blood 187 mg/dL (60-115)
[2024-04-22 19:59] LABS: Hematocrit 22.1 % (42.0-52.0); Hemoglobin 7.6 g/dl (14.0-18.0); Mean Corpuscular HGB Conc 34.4 g/dl (31.0-36.0); Mean Corpuscular Hemoglobin 29.6 pg (27.0-33.0); Platelet Count 147 X10*3/uL (160-400); Red Blood Count 2.57 X10*6/uL (4.60-5.80); Red Cell Distribution Width 16.5 % (11.0-16.0); White Blood Count 11.9 X10*3/uL (4.8-10.8)
[2024-04-22 20:00] LABS: Venous Blood Gas Refer to POC result
[2024-04-22 20:22] LABS: Ammonia 28 umol/L (13-55)
[2024-04-22 20:49] LABS: Anion Gap 22 (12-20); Blood Urea Nitrogen 83 mg/dL (9-16); Calcium 6.6 mg/dL (8.4-10.2); Carbon Dioxide 13 mmol/L (22-29); Chloride 99 mmol/L (96-108); Creatinine Clr Calc Pharmacy 10.5; Estimated Glomerular Filt Rate 9; Glucose Random 184 mg/dL (60-115); Potassium 4.2 mmol/L (3.3-5.1); Sodium 130 mmol/L (135-145)
[2024-04-22] MEDS: Docusate Sodium 100 MG CAPSULE PO (21:44)
[2024-04-22] MEDS: carvediloL 6.25 MG TABLET PO (21:44)
[2024-04-22] MEDS: Acetaminophen 1,000 MG/100 ML PIGGYBACK 400 MG IV (23:16)
[2024-04-23] VITALS: BP 145/67; PULSE 84; RESP 20; TEMP 36.5; O2SAT 95
[2024-04-23] MEDS: Albumin Human 25 % 100 ML IV ×2 (03:18→08:43)
[2024-04-23] MEDS: Piperacillin Sodium/Tazobactam 4.5 GM in 0.9 % Sodium Chloride 100 ML IV ×2 (04:57→19:00)
[2024-04-23 06:17] LABS: Hematocrit 21.5 % (42.0-52.0); Hemoglobin 7.6 g/dl (14.0-18.0); Mean Corpuscular HGB Conc 35.3 g/dl (31.0-36.0); Mean Corpuscular Hemoglobin 30.3 pg (27.0-33.0); Mean Corpuscular Volume 85.7 fL (80.0-98.0); Mean Platelet Volume 9.7 fL (9.4-12.4); Platelet Count 133 X10*3/uL (160-400); Red Blood Count 2.51 X10*6/uL (4.60-5.80); Red Cell Distribution Width 16.4 % (11.0-16.0); Venous Blood Gas Refer to POC result; White Blood Count 10.9 X10*3/uL (4.8-10.8)
[2024-04-23 06:20] LABS: VBG Base Excess -7.5 mmol/L; VBG HCO3 16 mmol/L (22-26); VBG pCO2 28 mmHg; VBG pH 7.36 (7.32-7.43); VBG pO2 66 mmHg
[2024-04-23] MEDS: ondansetron HCL 4 MG/2 ML VIAL IVPUSH ×2 (06:24→14:26)
[2024-04-23 06:43] LABS: Alanine Aminotransferase 72 U/L (0-40); Alkaline Phosphatase 392 U/L (39-117); Anion Gap 22 (12-20); Aspartate Amino Transferase 38 U/L (5-37); Blood Urea Nitrogen 85 mg/dL (9-16); Calcium 7.1 mg/dL (8.4-10.2); Carbon Dioxide 16 mmol/L (22-29); Chloride 99 mmol/L (96-108); Creatinine Clr Calc Pharmacy 9.3; Estimated Glomerular Filt Rate 8; Glucose Random 88 mg/dL (60-115); Potassium 4.3 mmol/L (3.3-5.1); Sodium 133 mmol/L (135-145); Total Protein 6.7 g/dL (6.5-8.0)
[2024-04-23 07:32] LABS: Glucose, Whole Blood 102 mg/dL (60-115)
[2024-04-23 08:00] VITALS: BP 162/74; PULSE 82; RESP 20; TEMP 36.1; O2SAT 95
[2024-04-23] MEDS: Sodium Bicarbonate 650 MG TABLET PO ×2 (08:31→13:37)
[2024-04-23] MEDS: Ferrous Sulfate 324 MG TABLET.DR PO (08:31)
[2024-04-23] MEDS: Atorvastatin Calcium 80 MG TABLET PO (08:31)
[2024-04-23] MEDS: Benztropine Mesylate 0.5 MG TABLET PO (08:32)
[2024-04-23] MEDS: Tamsulosin HCL 0.4 MG CAPSULE PO (08:32)
[2024-04-23] MEDS: Docusate Sodium 100 MG CAPSULE PO (08:32)
[2024-04-23] MEDS: 0.9 % Sodium Chloride Flush 3 ML SYRINGE IVFLUSH ×3 (08:32→21:12)
[2024-04-23] MEDS: bisacodyL 5 MG TABLET.DR 10 MG PO (08:32)
[2024-04-23] MEDS: carvediloL 6.25 MG TABLET PO (08:33)
[2024-04-23] MEDS: Insulin Glargine,Hum.rec.anlog 100 UNIT/ML 10 ML VIAL 10 UNIT SUBCUT (08:33)
--- NOTE | 2024-04-23 09:54 | HO.PICC ---
PICC Line Insertion NPICC Diagnosis: Osteomyelitis Indication: care home ABT Pertinent Labs: reviewed Technique: Following informed consent including risks, benefits and alternatives and using sterile technique including cap and mask, sterile gown, glove and drape, the right arm was prepped and draped in the usual sterile fashion of full barrier technique with CHG. Following completion of [place] Protocol the skin and soft tissues were anesthetized with 1% Lidocaine plain. Using ultrasound guidance, right basilic vein access was obtained. Over an 0.018 wire through peel-away sheath, a 5FR double lumen PASV PICC line was positioned. Catheter length is 42cm internal length, 1cm external length, for a total trimmed length of 42cm. The procedure was performed in room 272. Tip verification was performed by Yady Singleton with Sherlock 3CG. Tip located in SVC. Ultrasound was used to document vein patency and for needle entry. A formal ultrasound picture and cardiac rhythm strip was recorded. Vascular Milling Supervisor has released the line for use and it is currently dressed with a StatLock, Tegaderm, and CHG disc. Verification has been performed for blood return and line patency. Arm Circumference: 32cm Equipment: Chiasma PowerPICC solol catheter with sherlock 3CG Catheter Type: 5FR double lumen PASV catheter Lot #: [id number]
--- NOTE | 2024-04-23 10:11 | MHC.CM.PN ---
Per ROUNDS discussion, Patient will require HD today and is not yet medically cleared for dc. PT is recommending home with services; CM will follow.
--- NOTE | 2024-04-23 11:04 | P.PNGS_ITS ---
Subjective Subjective Date of Service: 04/23/24 Interval history: Patient found to be lethargic yesterday evening, arousable with sternal rub. He is much improved this morning. Going down for IV access for hemodialysis. Physical Exam 2 Vital Signs: Vital Signs: Last Vital Signs Temp 97.0 F 04/23/24 08:00 Pulse 82 04/23/24 08:00 Resp 20 04/23/24 08:00 BP 162/74 H 04/23/24 08:00 Pulse Ox 95 04/23/24 08:00 O2 Del Method Nasal Cannula 04/23/24 08:00 O2 Flow Rate 2 04/23/24 08:00 BMI result Body Mass Index 23.4 Const: General: no acute distress Resp: Effort & Inspection: normal respiratory effort GI: Other: Mildly distended, intact incision and ELAINA with increased output bilious tinged fluid Objective Data Active Medications Amlodipine Besylate (Amlodipine Besylate 10 Mg Tablet) 10 mg PO DAILY [facility]; Protocol Last Admin: 04/19/24 07:57 Dose: 10 mg Documented By: KADY Atorvastatin Calcium (Atorvastatin Calcium 80 Mg Tablet) 80 mg PO DAILY [facility] Last Admin: 04/23/24 08:31 Dose: 80 mg Documented By: WAQAS Benztropine Mesylate (Benztropine Mesylate 0.5 Mg Tablet) 0.5 mg PO DAILY [facility] Last Admin: 04/23/24 08:32 Dose: 0.5 mg Documented By: WAQAS Bisacodyl (Bisacodyl 5 Mg Tablet.) 10 mg PO DAILY [facility] Last Admin: 04/23/24 08:32 Dose: 10 mg Documented By: WAQAS Bumetanide (Bumetanide 1 Mg Tablet) 2 mg PO BID [facility]; Protocol Last Admin: 04/19/24 07:57 Dose: 2 mg Documented By: KADY Calcium Carbonate (Calcium Carbonate 500 Mg Tablet) 500 mg PO DAILY [facility] Last Admin: 04/23/24 08:31 Dose: 500 mg Documented By: WAQAS Carvedilol (Carvedilol 6.25 Mg Tablet) 6.25 mg PO BID [facility]; Protocol Last Admin: 04/23/24 08:33 Dose: 6.25 mg Documented By: WAQAS Diphenhydramine HCl (Diphenhydramine Hcl 25 Mg Capsule) 25 mg PO BEDTIME [facility] Last Admin: 04/21/24 20:37 Dose: 25 mg Documented By: CINTHIA Docusate Sodium (Docusate Sodium 100 Mg Capsule) 100 mg PO BID [facility] Last Admin: 04/23/24 08:32 Dose: 100 mg Documented By: WAQAS Ferrous Sulfate (Ferrous Sulfate 324 Mg Tablet.Dr) 324 mg PO DAILY [facility] Last Admin: 04/23/24 08:31 Dose: 324 mg Documented By: WAQAS Gabapentin (Gabapentin 100 Mg Capsule) 100 mg PO BID [facility] Last Admin: 04/22/24 08:07 Dose: 100 mg Documented By: TWAANA Glucose (Glucose Gel 15 Gm Gel..Gram.) 15 gm PO Q15M PRN; Protocol PRN Reason: per Hypoglycemia Standing Ord. Hydralazine HCl (Hydralazine Hcl 50 Mg Tablet) 150 mg PO BID [facility]; Protocol Last Admin: 04/21/24 09:24 Dose: Not Given Documented By: TAWANA Non-Admin Reason: Physician Held Med Piperacillin Sod/Tazobactam (Sod 4.5 gm/ Sodium Chloride) 100 mls @ 200 mls/hr IV Q12H [facility] Last Infusion: 04/23/24 05:29 Dose: Infused Documented By: FAITH Dextrose (D10) 250 mls @ 750 mls/hr IV Q15M PRN; Protocol PRN Reason: per Hypoglycemia Standing Ord. Acetaminophen (Ofirmev) 1,000 mg in 100 mls @ 400 mls/hr IV Q6H PRN PRN Reason: Pain, Severe (Pain Scale 7-10) Last Infusion: 04/22/24 23:35 Dose: Infused Documented By: FAITH Insulin Glargine (Insulin Glargine,Hum.Rec.Anlog 100 Unit/Ml 10 Ml Vial) 10 unit SUBCUT DAILY [facility] Last Admin: 04/23/24 08:33 Dose: 10 unit Documented By: WAQAS Insulin Human Lispro (Insulin Lispro 100 Unit/Ml 3 Ml Vial) 0 unit SUBCUT QIDACHS [facility]; Protocol Last Admin: 04/23/24 07:34 Dose: Not Given Documented By: WAQAS Non-Admin Reason: No Insulin Coverage Magnesium Hydroxide (Milk Of Magnesia 30 Ml Oral.Susp) 30 ml PO DAILY PRN PRN Reason: Constipation Ondansetron HCl (Ondansetron Hcl 4 Mg/2 Ml Vial) 4 mg IVPUSH Q8H PRN PRN Reason: Nausea and Vomiting Last Admin: 04/23/24 06:24 Dose: 4 mg Documented By: FAITH Sodium Bicarbonate (Sodium Bicarbonate 650 Mg Tablet) 650 mg PO QID [facility] Last Admin: 04/23/24 08:31 Dose: 650 mg Documented By: WAQAS Sodium Chloride (0.9 % Sodium Chloride Flush 3 Ml Syringe) 3 ml IVFLUSH QSHIFT [facility] Last Admin: 04/23/24 08:32 Dose: 3 ml Documented By: WAQAS Tamsulosin HCl (Tamsulosin Hcl 0.4 Mg Capsule) 0.4 mg PO DAILY [facility] Last Admin: 04/23/24 08:32 Dose: 0.4 mg Documented By: WAQAS Trazodone HCl (Trazodone Hcl 50 Mg Tablet) 50 mg PO BEDTIME MRX1 PRN PRN Reason: Insomnia Last Admin: 04/18/24 21:01 Dose: 50 mg Documented By: JASMINA Ziprasidone (Ziprasidone 60 Mg Capsule) 60 mg PO BID [facility] Last Admin: 04/22/24 08:07 Dose: 60 mg Documented By: TAWANA Labs 04/23/24 06:09 04/23/24 06:09 Labs: Laboratory Results - last 24 hr 04/22/24 04/22/24 04/22/24 05:51 11:05 15:21 MCV MCH MCHC RDW Plt Count MPV Absolute Nucleated RBC Nucleated RBC % (auto) VBG pH VBG pCO2 VBG pO2 VBG HCO3 VBG O2 Saturation VBG Base Excess Anion Gap Estim Creat Clear Calc Estimated GFR POC Glucose 142 H Random Glucose Calcium Total Bilirubin 2.3 H Direct Bilirubin 1.8 H AST 48 H ALT 106 H Alkaline Phosphatase 341 H Ammonia Total Protein 6.7 Albumin 3.7 Urine Osmolality Ur Random Sodium Ur Random Potassium Ur Random Chloride Random Vancomycin 18.3 04/22/24 04/22/24 04/22/24 15:47 19:46 19:50 MCV 86.0 MCH 29.6 MCHC 34.4 RDW 16.5 H Plt Count 147 L MPV 10.0 Absolute Nucleated RBC 0.000 Nucleated RBC % (auto) 0.0 VBG pH 7.42 VBG pCO2 24 VBG pO2 59 VBG HCO3 16 L VBG O2 Saturation 92.0 VBG Base Excess -6.7 Anion Gap 22 H Estim Creat Clear Calc 10.5 Estimated GFR 9 POC Glucose 141 H Random Glucose 184 H Calcium 6.6 L Total Bilirubin Direct Bilirubin AST ALT Alkaline Phosphatase Ammonia 28 Total Protein Albumin Urine Osmolality Ur Random Sodium Ur Random Potassium Ur Random Chloride Random Vancomycin 04/22/24 04/22/24 04/23/24 19:54 Unknown 06:09 MCV 85.7 MCH 30.3 MCHC 35.3 RDW 16.4 H Plt Count 133 L MPV 9.7 Absolute Nucleated RBC 0.000 Nucleated RBC % (auto) 0.0 VBG pH VBG pCO2 VBG pO2 VBG HCO3 VBG O2 Saturation VBG Base Excess Anion Gap 22 H Estim Creat Clear Calc 9.3 Estimated GFR 8 POC Glucose 187 H Random Glucose 88 Calcium 7.1 L D Total Bilirubin 2.0 H Direct Bilirubin AST 38 H ALT 72 H Alkaline Phosphatase 392 H Ammonia Total Protein 6.7 Albumin 4.0 Urine Osmolality 185 L Ur Random Sodium < 20.0 Ur Random Potassium 17.8 Ur Random Chloride < 20.0 Random Vancomycin 04/23/24 04/23/24 06:12 07:27 MCV MCH MCHC RDW Plt Count MPV Absolute Nucleated RBC Nucleated RBC % (auto) VBG pH 7.36 VBG pCO2 28 VBG pO2 66 VBG HCO3 16 L VBG O2 Saturation TNP VBG Base Excess -7.5 Anion Gap Estim Creat Clear Calc Estimated GFR POC Glucose 102 Random Glucose Calcium Total Bilirubin Direct Bilirubin AST ALT Alkaline Phosphatase Ammonia Total Protein Albumin Urine Osmolality Ur Random Sodium Ur Random Potassium Ur Random Chloride Random Vancomycin Procedures Date of Service Date of Service: 04/23/24 Progress Note: A&P Assessment and plan (1) Acute cholecystitis: Status: Acute (2) Obstructive jaundice: Status: Acute Plan 58-year-old male patient presenting with obstructive jaundice and acute cholecystitis status post open partial cholecystectomy, ELAINA now with increased output. Awaiting hemodialysis access. We will consult GI for possible ERCP, stent placement for high ELAINA output. Time Spent With Patient Time: Total time managing care of this patient today ____ minutes. Quality Stroke Does the patient have a stroke diagnosis?: No VTE Prior VTE?: No VTE Risk Level:: Medical - moderate - high VTE Device Contraindication: Treatment Not Indicated VTE Drug Contraindication: N/A - Med Ordered
[2024-04-23 11:41] LABS: Glucose, Whole Blood 78 mg/dL (60-115)
[2024-04-23] MEDS: Dextrose 10 % 250 ML 750 ML IV (11:53)
[2024-04-23 12:00] VITALS: BP 158/74; PULSE 85; RESP 20; TEMP 36.4; O2SAT 90
--- NOTE | 2024-04-23 12:43 | P.PNNP_ITS ---
Subjective Subjective Date of Service: 04/24/24 Interval history: Events noted. Much more alert today. Family at bedside. He is able to answer questions relevantly. He is anxious to know when he can go home. Overnight events noted and he was lethargic yesterday which has significantly improved. Physical Exam 2 Vital Signs: Vital Signs: Last Vital Signs Temp 97.5 F 04/23/24 12:00 Pulse 85 04/23/24 12:00 Resp 20 04/23/24 12:00 BP 158/74 H 04/23/24 12:00 Pulse Ox 90 L 04/23/24 12:00 O2 Del Method Nasal Cannula 04/23/24 12:00 O2 Flow Rate 1.5 04/23/24 12:00 BMI result Body Mass Index 23.4 Const: General: ill appearing Neck: Neck: Yes supple Resp: Auscultation: clear to auscultation bilaterally Cardio: Palpation: no palpable S3 Heart sounds: no rubs GI: Palpation (GI): Soft to palpation Auscultation: normal bowel sounds Neuro: Motor exam (neuro): no asterixis Objective Data Labs 04/24/24 06:01 04/24/24 06:01 Labs: Laboratory Results - last 24 hr 04/22/24 04/22/24 04/22/24 05:51 15:21 15:47 WBC RBC Hgb 8.2 L Hct 23.4 L MCV MCH MCHC RDW Plt Count MPV Absolute Nucleated RBC Nucleated RBC % (auto) VBG pH VBG pCO2 VBG pO2 VBG HCO3 VBG O2 Saturation VBG Base Excess Sodium Potassium Chloride Carbon Dioxide Anion Gap BUN Creatinine Estim Creat Clear Calc Estimated GFR POC Glucose 141 H Random Glucose Calcium Total Bilirubin 2.3 H Direct Bilirubin 1.8 H AST 48 H ALT 106 H Alkaline Phosphatase 341 H Ammonia Total Protein 6.7 Albumin 3.7 Urine Osmolality Ur Random Sodium Ur Random Potassium Ur Random Chloride Random Vancomycin 18.3 04/22/24 04/22/24 04/22/24 19:46 19:50 19:54 WBC 11.9 H RBC 2.57 L Hgb 7.6 L Hct 22.1 L MCV 86.0 MCH 29.6 MCHC 34.4 RDW 16.5 H Plt Count 147 L MPV 10.0 Absolute Nucleated RBC 0.000 Nucleated RBC % (auto) 0.0 VBG pH 7.42 VBG pCO2 24 VBG pO2 59 VBG HCO3 16 L VBG O2 Saturation 92.0 VBG Base Excess -6.7 Sodium 130 L Potassium 4.2 Chloride 99 Carbon Dioxide 13 L Anion Gap 22 H BUN 83 H Creatinine 6.30 H* Estim Creat Clear Calc 10.5 Estimated GFR 9 POC Glucose 187 H Random Glucose 184 H Calcium 6.6 L Total Bilirubin Direct Bilirubin AST ALT Alkaline Phosphatase Ammonia 28 Total Protein Albumin Urine Osmolality Ur Random Sodium Ur Random Potassium Ur Random Chloride Random Vancomycin 04/22/24 04/23/24 04/23/24 Unknown 06:09 06:12 WBC 10.9 H RBC 2.51 L Hgb 7.6 L Hct 21.5 L MCV 85.7 MCH 30.3 MCHC 35.3 RDW 16.4 H Plt Count 133 L MPV 9.7 Absolute Nucleated RBC 0.000 Nucleated RBC % (auto) 0.0 VBG pH 7.36 VBG pCO2 28 VBG pO2 66 VBG HCO3 16 L VBG O2 Saturation TNP VBG Base Excess -7.5 Sodium 133 L Potassium 4.3 Chloride 99 Carbon Dioxide 16 L Anion Gap 22 H BUN 85 H Creatinine 7.13 H* Estim Creat Clear Calc 9.3 Estimated GFR 8 POC Glucose Random Glucose 88 Calcium 7.1 L D Total Bilirubin 2.0 H Direct Bilirubin AST 38 H ALT 72 H Alkaline Phosphatase 392 H Ammonia Total Protein 6.7 Albumin 4.0 Urine Osmolality 185 L Ur Random Sodium < 20.0 Ur Random Potassium 17.8 Ur Random Chloride < 20.0 Random Vancomycin 04/23/24 04/23/24 07:27 11:29 WBC RBC Hgb Hct MCV MCH MCHC RDW Plt Count MPV Absolute Nucleated RBC Nucleated RBC % (auto) VBG pH VBG pCO2 VBG pO2 VBG HCO3 VBG O2 Saturation VBG Base Excess Sodium Potassium Chloride Carbon Dioxide Anion Gap BUN Creatinine Estim Creat Clear Calc Estimated GFR POC Glucose 102 78 Random Glucose Calcium Total Bilirubin Direct Bilirubin AST ALT Alkaline Phosphatase Ammonia Total Protein Albumin Urine Osmolality Ur Random Sodium Ur Random Potassium Ur Random Chloride Random Vancomycin Microbiology Microbiology Results: Microbiology 04/20/24 02:51 Blood - Venous Blood Culture - Preliminary No growth after 48 hours. 04/20/24 02:50 Blood - Venous Blood Culture - Preliminary No growth after 48 hours. 04/18/24 17:06 Blood - Venous Blood Culture - Final Coag negative Staphylococcus 04/18/24 17:06 Blood - Venous Blood Culture - Preliminary No growth after 48 hours. Procedures Date of Service Date of Service: 04/24/24 Assessment & Plan Assessment and plan (1) Acute kidney injury superimposed on chronic kidney disease: Status: Acute (2) Acute on chronic anemia: Status: Resolved (3) HTN (hypertension): Status: Inactive (4) Nephrotic syndrome: Status: Inactive Plan Middle-aged man with acute kidney injury superimposed on CKD. Biopsy showed evidence of TMA in the past Baseline creatinine is around 2.5 mg/dL. He sustained superimposed KWAME due to hypoperfusion. Has probably progressed to ATN. Given persistent acidosis and worsening renal function we will proceed with dialysis today. Await dialysis catheter insertion by IR. Optimize hemoglobin may need blood transfusion. We will add a dose of erythropoietin as well. Time Spent With Patient Time: Total time managing care of this patient today ____ minutes. Progress Note: Quality Stroke Does the patient have a stroke diagnosis?: No
[2024-04-23 12:51] LABS: Glucose, Whole Blood 150 mg/dL (60-115)
--- NOTE | 2024-04-23 15:59 | P.PNIM_ITS ---
Subjective Subjective Date of Service: 04/23/24 Interval History: abd pain ,possible acute cholecytitis ,hyponatremia Review of Systems Mental status seems to be improving Did not endorse much abdominal discomfort, has some somewhat distended. No fever Vomited 3 -4 times still producing urine ,passing gases , no bm's high tyson output denies any chest pain or sob Physical Exam 2 Vital Signs: Vital Signs: Last Vital Signs Temp 97.5 F 04/23/24 12:00 Pulse 85 04/23/24 12:00 Resp 20 04/23/24 12:00 BP 158/74 H 04/23/24 12:00 Pulse Ox 90 L 04/23/24 12:00 O2 Del Method Nasal Cannula 04/23/24 12:00 O2 Flow Rate 1.5 04/23/24 12:00 BMI result Body Mass Index 23.4 Appearance: Alert.? Oriented X2,able to answer most questions and follow commands.? cvs: rrr, [id number] . res: clear to auscultation ,no rhonchii or wheezing abd: no rebound or guarding ,somewhat distended ,bs present . ext pulses present , no cyanosis . neuro: axo3 , nonfocal. Objective Data Active Medications Amlodipine Besylate (Amlodipine Besylate 10 Mg Tablet) 10 mg PO DAILY [facility]; Protocol Last Admin: 04/19/24 07:57 Dose: 10 mg Documented By: KADY Atorvastatin Calcium (Atorvastatin Calcium 80 Mg Tablet) 80 mg PO DAILY [facility] Last Admin: 04/23/24 08:31 Dose: 80 mg Documented By: WAQAS Benztropine Mesylate (Benztropine Mesylate 0.5 Mg Tablet) 0.5 mg PO DAILY [facility] Last Admin: 04/23/24 08:32 Dose: 0.5 mg Documented By: WAQAS Bisacodyl (Bisacodyl 5 Mg Tablet.) 10 mg PO DAILY [facility] Last Admin: 04/23/24 08:32 Dose: 10 mg Documented By: WAQAS Calcium Carbonate (Calcium Carbonate 500 Mg Tablet) 500 mg PO DAILY [facility] Last Admin: 04/23/24 08:31 Dose: 500 mg Documented By: WAQAS Carvedilol (Carvedilol 6.25 Mg Tablet) 6.25 mg PO BID [facility]; Protocol Last Admin: 04/23/24 08:33 Dose: 6.25 mg Documented By: WAQAS Diphenhydramine HCl (Diphenhydramine Hcl 25 Mg Capsule) 25 mg PO BEDTIME [facility] Last Admin: 04/21/24 20:37 Dose: 25 mg Documented By: CINTHIA Docusate Sodium (Docusate Sodium 100 Mg Capsule) 100 mg PO BID [facility] Last Admin: 04/23/24 08:32 Dose: 100 mg Documented By: WAQAS Ferrous Sulfate (Ferrous Sulfate 324 Mg Tablet.Dr) 324 mg PO DAILY [facility] Last Admin: 04/23/24 08:31 Dose: 324 mg Documented By: WAQAS Gabapentin (Gabapentin 100 Mg Capsule) 100 mg PO BID [facility] Last Admin: 04/22/24 08:07 Dose: 100 mg Documented By: TAWANA Glucose (Glucose Gel 15 Gm Gel..Gram.) 15 gm PO Q15M PRN; Protocol PRN Reason: per Hypoglycemia Standing Ord. Hydralazine HCl (Hydralazine Hcl 50 Mg Tablet) 150 mg PO BID [facility]; Protocol Last Admin: 04/21/24 09:24 Dose: Not Given Documented By: TAWANA Non-Admin Reason: Physician Held Med Piperacillin Sod/Tazobactam (Sod 4.5 gm/ Sodium Chloride) 100 mls @ 200 mls/hr IV Q12H [facility] Last Infusion: 04/23/24 05:29 Dose: Infused Documented By: FAITH Dextrose (D10) 250 mls @ 750 mls/hr IV Q15M PRN; Protocol PRN Reason: per Hypoglycemia Standing Ord. Last Infusion: 04/23/24 12:13 Dose: Infused Documented By: WAQAS Acetaminophen (Ofirmev) 1,000 mg in 100 mls @ 400 mls/hr IV Q6H PRN PRN Reason: Pain, Severe (Pain Scale 7-10) Last Infusion: 04/22/24 23:35 Dose: Infused Documented By: FAITH Insulin Glargine (Insulin Glargine,Hum.Rec.Anlog 100 Unit/Ml 10 Ml Vial) 10 unit SUBCUT DAILY [facility] Last Admin: 04/23/24 08:33 Dose: 10 unit Documented By: WAQAS Insulin Human Lispro (Insulin Lispro 100 Unit/Ml 3 Ml Vial) 0 unit SUBCUT QIDACHS [facility]; Protocol Last Admin: 04/23/24 11:40 Dose: Not Given Documented By: WAQAS Non-Admin Reason: No Insulin Coverage Magnesium Hydroxide (Milk Of Magnesia 30 Ml Oral.Susp) 30 ml PO DAILY PRN PRN Reason: Constipation Ondansetron HCl (Ondansetron Hcl 4 Mg/2 Ml Vial) 4 mg IVPUSH Q8H PRN PRN Reason: Nausea and Vomiting Last Admin: 04/23/24 06:24 Dose: 4 mg Documented By: YANELISLAMDavie Sodium Bicarbonate (Sodium Bicarbonate 650 Mg Tablet) 650 mg PO QID [facility] Last Admin: 04/23/24 13:37 Dose: 650 mg Documented By: WAQAS Sodium Chloride (0.9 % Sodium Chloride Flush 3 Ml Syringe) 3 ml IVFLUSH QSHIFT [facility] Last Admin: 04/23/24 08:32 Dose: 3 ml Documented By: WAQAS Tamsulosin HCl (Tamsulosin Hcl 0.4 Mg Capsule) 0.4 mg PO DAILY [facility] Last Admin: 04/23/24 08:32 Dose: 0.4 mg Documented By: WAQAS Trazodone HCl (Trazodone Hcl 50 Mg Tablet) 50 mg PO BEDTIME MRX1 PRN PRN Reason: Insomnia Last Admin: 04/18/24 21:01 Dose: 50 mg Documented By: JASMINA Ziprasidone (Ziprasidone 60 Mg Capsule) 60 mg PO BID [facility] Last Admin: 04/22/24 08:07 Dose: 60 mg Documented By: TAWANA Labs 04/23/24 06:09 04/23/24 06:09 Labs: Laboratory Results - last 24 hr 04/22/24 04/22/24 04/22/24 05:51 15:21 15:47 MCV MCH MCHC RDW Plt Count MPV Absolute Nucleated RBC Nucleated RBC % (auto) VBG pH VBG pCO2 VBG pO2 VBG HCO3 VBG O2 Saturation VBG Base Excess Anion Gap Estim Creat Clear Calc Estimated GFR POC Glucose 141 H Random Glucose Calcium Total Bilirubin 2.3 H Direct Bilirubin 1.8 H AST 48 H ALT 106 H Alkaline Phosphatase 341 H Ammonia Total Protein 6.7 Albumin 3.7 Random Vancomycin 18.3 04/22/24 04/22/24 04/22/24 19:46 19:50 19:54 MCV 86.0 MCH 29.6 MCHC 34.4 RDW 16.5 H Plt Count 147 L MPV 10.0 Absolute Nucleated RBC 0.000 Nucleated RBC % (auto) 0.0 VBG pH 7.42 VBG pCO2 24 VBG pO2 59 VBG HCO3 16 L VBG O2 Saturation 92.0 VBG Base Excess -6.7 Anion Gap 22 H Estim Creat Clear Calc 10.5 Estimated GFR 9 POC Glucose 187 H Random Glucose 184 H Calcium 6.6 L Total Bilirubin Direct Bilirubin AST ALT Alkaline Phosphatase Ammonia 28 Total Protein Albumin Random Vancomycin 04/23/24 04/23/24 04/23/24 06:09 06:12 07:27 MCV 85.7 MCH 30.3 MCHC 35.3 RDW 16.4 H Plt Count 133 L MPV 9.7 Absolute Nucleated RBC 0.000 Nucleated RBC % (auto) 0.0 VBG pH 7.36 VBG pCO2 28 VBG pO2 66 VBG HCO3 16 L VBG O2 Saturation TNP VBG Base Excess -7.5 Anion Gap 22 H Estim Creat Clear Calc 9.3 Estimated GFR 8 POC Glucose 102 Random Glucose 88 Calcium 7.1 L D Total Bilirubin 2.0 H Direct Bilirubin AST 38 H ALT 72 H Alkaline Phosphatase 392 H Ammonia Total Protein 6.7 Albumin 4.0 Random Vancomycin 04/23/24 04/23/24 11:29 12:45 MCV MCH MCHC RDW Plt Count MPV Absolute Nucleated RBC Nucleated RBC % (auto) VBG pH VBG pCO2 VBG pO2 VBG HCO3 VBG O2 Saturation VBG Base Excess Anion Gap Estim Creat Clear Calc Estimated GFR POC Glucose 78 150 H Random Glucose Calcium Total Bilirubin Direct Bilirubin AST ALT Alkaline Phosphatase Ammonia Total Protein Albumin Random Vancomycin Assessment and Plan (1) Acute cholecystitis: Status: Acute (2) Obstructive jaundice: Status: Acute (3) Anemia due to chronic kidney disease: Status: Acute (4) CKD (chronic kidney disease): Status: Acute Assessment and Plan: d-6: 57 year old male with chronic normocytic anemia, htn, hld, diabetic polyneuropathy, diabetic nephropathy, chronic pain syndrome, insulin dependent type 2 diabetes, cocaine abuse, nephrotic syndrome, CKD stage 4, diastolic heart failure, and depression admitted for further management of acute cholecystitis/choledocholithiasis with obstructive jaundice. toxic metabolic encepahlopathy multifactroial(donna worseing ,painmeds-gabapentine ,geodon ,benadryl,opoids ,recent surgery): improving ph improving ,neurochecks ,hd,currently plan hold all sedatives ,moniter mental status acute cholecystitis/choledocholithiasis with obstructive jaundice: CT abdomen/pelvis negative for visible biliary ductal dilatation and no radiopaque choledocholithiasis. abdominal ultrasound shows normal-appearing liver and nonvisualization of the common bile duct without any intrahepatic biliary ductal dilatation. There is also cholelithiasis and findings consistent with acute cholecystitis and positive sonographic Lanza's sign but no mural edema or pericholecystic fluid. mrcp: Moderate intrahepatic biliary ductal dilatation. The common duct is of normal caliber measuring 5 mm distally. There is 1.2 cm focal signal dropout of the common duct at the joan hepatis most likely related to the mass effect from a stone within the gallbladder.possible acute cholecystitis. 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 blood cultures1/2 seems gram postive cocci in cluster ( coagulase neg abiola). repeat blood culture neg@48 hrs. kub negative ,passing gases , no bm Lft;s improving, no fevers leukocytosis tredning down. s/p Laparoscopic converted to open partial cholecystectomy(on 04/20/24) -s/p tyson drain: output high plan:s/p Laparoscopic converted to open partial cholecystectomy (on 04/20)- day3. intially got vanco x1 dose ,vanco trouh is 26.3- 20.5-18 Continue IV Zosyn ,d/w surgery-kub negative ,passing gases , no bm,high tyson output -added Gi eval for ercp and stent for high tyson output ,also added antiemtics ,if continue to vomiting may need Ngt. surgery following Mild acute hyponatremia (multifactorial dec po intake /diuretics) serum osmolarity 307,urine osm 185 urine sodium <20,potassium 17.8 ,cl <20. improving mild hypocalcemia chronic -7.1( running in 8 range ):added calcium gluconate ,when able po calcium may need pth check insulin-dependent type 2 diabetes with hyperglycemia-last hemoglobin A1c 6.7%. npo monitre fs,insulin donna on CKD stage 4- possible multifactorial-has hx of dm nephropathy,hypoperfusion (was npo, bp meds , vanco,diuretics,cocaine positive ) ph and encephalopathy seems improving nephro -Hd for uremic symptoms( nausea ,vomiting ,worseing cr , encepahlopathy),Hd Catheter placed. heart failure preserved ejection fraction: stable ,seems somewhat dry. hold bumex ,npo , will be getting HD. HTN: bp stable for now hold carvedilol, hydralazine, amlodipine . Cocaine abuse-cocaine positive addiction med consult if needed acute on ch anemia(aocd) iron levels slightly low, tibc low,iron sats normal,ferritin also mild elevated. received 2 prbc on 04/19 - h/h slightly down in range 7.6 getting epogen moniter cbc closely DVT prophylaxis- mech devices due to anemia requiring transfusion. Full code Pt requires inpt need to stay: acute cholecystitis and cholecystsitis with obstructive jaundice requiring further imaging for further evaluation- IV antibiotics,donna- iv fluids,anemia -needed transfusions : for these need electrolytes and prbc ,s/p open partial cholecystectomy, need surgerical follow up, npo unable to take po . Quality Stroke Does the patient have a stroke diagnosis?: No VTE Prior VTE?: No VTE Risk Level:: Medical - moderate - high VTE Device Contraindication: Treatment Not Indicated VTE Drug Contraindication: N/A - Med Ordered
--- NOTE | 2024-04-23 17:14 | W.PM.CCCN ---
History of Present Illness Data of Consult Service Date: 04/23/24 Requesting physician: Fadia Rubi Primary Care Provider: MD RICARDO Ambrocio Reason for consult: Altered sensorium MICU was consulted for altered sensorium in the setting of uremic encephalopathy. See the patient in dialysis, currently have a long conversation on the phone without any difficulty. His mental status is okay, he is hemodynamically stable. MICU will defer the consult. PMF Past Medical History Medical History Anemia Congestive heart failure Nephrotic syndrome Diastolic heart failure Anemia Pneumonia Diabetic nephropathy Anemia Chronic pain syndrome Diabetic polyneuropathy Vitamin D deficiency Depression HTN (hypertension) HLD (hyperlipidemia) T2DM (type 2 diabetes mellitus) Family History Family History Father Colon cancer Mother History of kidney problems T2DM (type 2 diabetes mellitus) Sister T2DM (type 2 diabetes mellitus) Family history: reviewed and not pertinent Surgical History Surgical History Status post biopsy of kidney Hx of colonoscopy Hx of rotator cuff surgery Social History Social History Household Members: Family Household Members Other:: 2 Housing: Apartment Do you presently have visiting nurse or other home services: Yes (1/wk) Alcohol intake: former Comment: allowed to walk in room Patient Tobacco Use Status: Never used Tobacco Second Hand Smoke Exposure: No Substance Use Type: Crack/Cocaine Advance Directives Date on File: 04/28/23 service: No Current occupational status: disabled Current occupation: right handed Meds Allergies Allergy/AdvReac Type Severity Reaction Status Date / Time No Known Allergies Allergy Verified 04/18/24 11:30 [No Known Allergies*] Active Medications: Current Medications Amlodipine Besylate (Amlodipine Besylate 10 Mg Tablet) 10 mg PO DAILY [facility]; Protocol Last Admin: 04/19/24 07:57 Dose: 10 mg Atorvastatin Calcium (Atorvastatin Calcium 80 Mg Tablet) 80 mg PO DAILY [facility] Last Admin: 04/23/24 08:31 Dose: 80 mg Benztropine Mesylate (Benztropine Mesylate 0.5 Mg Tablet) 0.5 mg PO DAILY [facility] Last Admin: 04/23/24 08:32 Dose: 0.5 mg Bisacodyl (Bisacodyl 5 Mg Tablet.) 10 mg PO DAILY [facility] Last Admin: 04/23/24 08:32 Dose: 10 mg Calcium Carbonate (Calcium Carbonate 500 Mg Tablet) 500 mg PO DAILY [facility] Last Admin: 04/23/24 08:31 Dose: 500 mg Carvedilol (Carvedilol 6.25 Mg Tablet) 6.25 mg PO BID [facility]; Protocol Last Admin: 04/23/24 08:33 Dose: 6.25 mg Diphenhydramine HCl (Diphenhydramine Hcl 25 Mg Capsule) 25 mg PO BEDTIME [facility] Last Admin: 04/21/24 20:37 Dose: 25 mg Docusate Sodium (Docusate Sodium 100 Mg Capsule) 100 mg PO BID [facility] Last Admin: 04/23/24 08:32 Dose: 100 mg Ferrous Sulfate (Ferrous Sulfate 324 Mg Tablet.) 324 mg PO DAILY [facility] Last Admin: 04/23/24 08:31 Dose: 324 mg Gabapentin (Gabapentin 100 Mg Capsule) 100 mg PO BID [facility] Last Admin: 04/22/24 08:07 Dose: 100 mg Glucose (Glucose Gel 15 Gm Gel..Gram.) 15 gm PO Q15M PRN; Protocol PRN Reason: per Hypoglycemia Standing Ord. Hydralazine HCl (Hydralazine Hcl 50 Mg Tablet) 150 mg PO BID [facility]; Protocol Last Admin: 04/21/24 09:24 Dose: Not Given Piperacillin Sod/Tazobactam (Sod 4.5 gm/ Sodium Chloride) 100 mls @ 200 mls/hr IV Q12H [facility] Last Infusion: 04/23/24 05:29 Dose: Infused Dextrose (D10) 250 mls @ 750 mls/hr IV Q15M PRN; Protocol PRN Reason: per Hypoglycemia Standing Ord. Last Infusion: 04/23/24 12:13 Dose: Infused Acetaminophen (Ofirmev) 1,000 mg in 100 mls @ 400 mls/hr IV Q6H PRN PRN Reason: Pain, Severe (Pain Scale 7-10) Last Infusion: 04/22/24 23:35 Dose: Infused Calcium Gluconate (Calcium Gluconate) 1 gm in 50 mls @ 50 mls/hr IV ONCE ONE Stop: 04/23/24 17:23 Insulin Glargine (Insulin Glargine,Hum.Rec.Anlog 100 Unit/Ml 10 Ml Vial) 10 unit SUBCUT DAILY [facility] Last Admin: 04/23/24 08:33 Dose: 10 unit Insulin Human Lispro (Insulin Lispro 100 Unit/Ml 3 Ml Vial) 0 unit SUBCUT QIDACHS [facility]; Protocol Last Admin: 04/23/24 11:40 Dose: Not Given Magnesium Hydroxide (Milk Of Magnesia 30 Ml Oral.Susp) 30 ml PO DAILY PRN PRN Reason: Constipation Ondansetron HCl (Ondansetron Hcl 4 Mg/2 Ml Vial) 4 mg IVPUSH Q8H PRN PRN Reason: Nausea and Vomiting Last Admin: 04/23/24 06:24 Dose: 4 mg Sodium Bicarbonate (Sodium Bicarbonate 650 Mg Tablet) 650 mg PO QID [facility] Last Admin: 04/23/24 13:37 Dose: 650 mg Sodium Chloride (0.9 % Sodium Chloride Flush 3 Ml Syringe) 3 ml IVFLUSH QSHIFT [facility] Last Admin: 04/23/24 08:32 Dose: 3 ml Tamsulosin HCl (Tamsulosin Hcl 0.4 Mg Capsule) 0.4 mg PO DAILY [facility] Last Admin: 04/23/24 08:32 Dose: 0.4 mg Trazodone HCl (Trazodone Hcl 50 Mg Tablet) 50 mg PO BEDTIME MRX1 PRN PRN Reason: Insomnia Last Admin: 04/18/24 21:01 Dose: 50 mg Ziprasidone (Ziprasidone 60 Mg Capsule) 60 mg PO BID [facility] Last Admin: 04/22/24 08:07 Dose: 60 mg Home Medications ?Medication ?Instructions ?Recorded ?Confirmed ?Last Taken ?Type insulin glargine 100 unit/mL (3 35 unit subcut DAILY 12/22/20 04/18/24 04/17/24 History mL) subcutaneous pen (Lantus Solostar U-100 Insulin) insulin lispro 100 unit/mL 14 unit subcut TIDAC 12/22/20 04/18/24 04/17/24 History subcutaneous pen (Humalog KwikPen (U-100) Insulin) diphenhydramine HCl 25 mg capsule 25 mg PO BEDTIME 04/18/23 04/18/24 04/17/24 History (Benadryl) tamsulosin 0.4 mg capsule 0.4 mg PO DAILY 04/18/23 04/18/24 04/17/24 History ziprasidone HCl 60 mg capsule 60 mg PO BID 04/18/23 04/18/24 04/17/24 History (Samuel) atorvastatin 80 mg tablet 80 mg PO DAILY 05/23/23 04/18/24 04/17/24 History benztropine 0.5 mg tablet 0.5 mg DAILY 10/14/23 04/18/24 04/17/24 History trazodone 50 mg tablet 50 - 100 mg PO BEDTIME PRN Insomnia 10/14/23 04/18/24 04/17/24 History gabapentin 100 mg capsule 100 mg PO BID 11/10/23 04/18/24 04/17/24 History dulaglutide 3 mg/0.5 mL 3 mg subcut WE 04/18/24 04/18/24 04/11/24 History [facility] Physical Exam Vital Signs: Vital Signs: Last Vital Signs Temp 97.5 F 04/23/24 12:00 Pulse 85 04/23/24 12:00 Resp 20 04/23/24 12:00 BP 158/74 H 04/23/24 12:00 Pulse Ox 90 L 04/23/24 12:00 O2 Del Method Nasal Cannula 04/23/24 12:00 O2 Flow Rate 1.5 04/23/24 12:00 BMI result Body Mass Index 23.4 General: Not in any acute distress, tired appearing Nutritional Appearance: well nourished and nor weight Eyes: appearance normal, both eyes and all related structures; Alignment and Position: alignment normal and position normal Neck: No lymphadenopathy, no thyromegaly Resp: bilateral air entry equal, occasional added sounds present Cardio: Regular rate, regular rhythm; Heart sounds: S1 normal heart sound present and S2 normal heart sound present GI: soft, nontender, no guarding, no hepatosplenomegaly : bladder normal to inspection, bladder normal to palpation, no renal angle tenderness Skin: no rashes or lesions noted and elasticity normal Neuro: oriented to person, oriented to place, oriented to time and moves all extremities Results Labs 04/23/24 06:09 04/23/24 06:09 Labs: Short CBC 04/22/24 04/23/24 Range/Units 19:46 06:09 WBC 11.9 H 10.9 H (4.8-10.8) X10*3/uL Hgb 7.6 L 7.6 L (14.0-18.0) g/dl Hct 22.1 L 21.5 L (42.0-52.0) % Plt Count 147 L 133 L (160-400) X10*3/uL BMP 04/22/24 04/23/24 19:46 06:09 Sodium 130 L 133 L Potassium 4.2 4.3 Chloride 99 99 Carbon Dioxide 13 L 16 L BUN 83 H 85 H Creatinine 6.30 H* 7.13 H* Calcium 6.6 L 7.1 L D Liver Function 04/23/24 Range/Units 06:09 Total Bilirubin 2.0 H (0.0-1.0) mg/dL AST 38 H (5-37) U/L ALT 72 H (0-40) U/L Alkaline Phosphatase 392 H (39-117) U/L Albumin 4.0 (3.5-5.0) g/dL Microbiology Microbiology Results: Microbiology 04/20/24 02:51 Blood - Venous Blood Culture - Preliminary No growth after 48 hours. 04/20/24 02:50 Blood - Venous Blood Culture - Preliminary No growth after 48 hours. 04/18/24 17:06 Blood - Venous Blood Culture - Final Coag negative Staphylococcus 04/18/24 17:06 Blood - Venous Blood Culture - Preliminary No growth after 48 hours.
--- NOTE | 2024-04-23 18:40 | P.EN_ITS ---
Event Note Date of Service: 04/23/24 Event Note: GI Consult-Full note dictated. History from patient with a director medical writing, and from his RN and the EMR. 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 Surgery was complicated by an acutely inflamed gallbladder with adhesions and in fection necessitating a partial CCY, removal of the large stone that was presumably causing the Mirizzi's, and having to leave the residual GB open with a J-P drain. Unsurprisingly, the J-P drain has been draining bile. The patient has required the initiation of HD today due to worsening of his CRF. He has been nauseated with vomiting. He has developed worsening anemia but there has been no sign of bleeding. Diff dx regarding his bile leak is that of a leak from the remaining open GB due to residual CBD obstruction and/or simply a leak due to the open GB remnant and flow of bile following the path of least resistance . Rec: He most likely will need an ERCP for further evaluation of his biliary anatomy and placement of a bile duct stent to help the leak ultimately resolve. However, this is not urgent given the good drainage afforded by the J-P drain. I also don't think his condition is optimal for further anesthesia and intervention with ERCP at this time. He will need further stabilization regarding his anemia and metabolic status. In the meantime I have ordered a MRCP to reassess his biliary anatomy s/p the surgery to see if the compression of the CBD remains as I think this will be helpful to know. We may want to have him undergo a HIDA scan to assess the patency of the CBD and the extent of the bile leak vs. the amount of normal biliary drainage into the duodenum. Given his significant medical problems at the present time and no pressing issue in regard to the bile leak, I would opt to proceed slowly and obtain the aforementioned information prior to further intervention with ERCP. Depending upon the results and his clinical course we could then proceed with ERCP toward the end of the week if it looks like the leak will not resolve without intervention. D/W blaine ent in detail. Thanks Time Spent With Patient Time: Total time managing care of this patient today ____ minutes.
[2024-04-23] MEDS: Pantoprazole Sodium 40 MG/10 ML VIAL IVPUSH (18:58)
[2024-04-23 19:17] VITALS: BP 169/78; PULSE 80; RESP 20; TEMP 36.1; O2SAT 93
[2024-04-23] MEDS: Calcium Gluconate/NaCl,Iso-Osm 1 GM/50 ML PLAST..BAG IV (20:53)
[2024-04-23 21:13] LABS: Glucose, Whole Blood 78 mg/dL (60-115)
[2024-04-24] VITALS: BP 140/65; PULSE 84; RESP 18; TEMP 36.8; O2SAT 94
[2024-04-24 03:34] VITALS: BP 179/70; PULSE 73; RESP 18; TEMP 36.2; O2SAT 95
--- NOTE | 2024-04-24 04:48 | CONS_ITS ---
DATE OF SERVICE: 04/23/2024 REASON FOR CONSULTATION: Bile leak and elevated LFTs. HISTORY OF PRESENT ILLNESS: This has been obtained from the patient with a emergency medical technician, as well as from his nurse, and the medical record. The patient is a 58-year-old male, admitted with abdominal pain last week and found to have cholecystitis with an associated apparent Mirizzi's syndrome with biliary obstruction. There was no sign of any definitive common duct stone. He underwent attempted laparoscopic cholecystectomy, but this had to be converted to an open procedure due to significant adhesions and infection intraabdominally. Due to the dense adhesions and inflammation with associated infection involving the gallbladder and surrounding tissues, the gallbladder could only be removed partially, although the large stone from within the gallbladder was able to be removed with hopeful improvement of the biliary obstruction. A Eric-Ley drain was left. The gallbladder remnant was not closed. Subsequent to this, he has developed a suspected bile leak with bile and some serosanguineous drainage noted in the ELAINA drain. His course has also been complicated by worsening of baseline renal insufficiency for which he needed hemodialysis today for the first time. He has also had significant anemia. Prior to becoming ill with his gallbladder, he denies any chronic GI complaints. He specifically denies any history of dysphagia, chronic heartburn, anorexia, nor any GI bleeding. CURRENT MEDICATIONS: Include amlodipine, acetaminophen, atorvastatin, benztropine mesylate, calcium carbonate, carvedilol, diphenhydramine, Colace, erythropoietin, iron, gabapentin, hydralazine, insulin, Zofran, IV Zosyn, sodium bicarbonate, tamsulosin, trazodone, and Geodon. PAST MEDICAL HISTORY: Back surgery. Nephrotic syndrome. CHF. Anemia. Neuropathy. Depression. Hypertension. Hyperlipidemia. Diabetes mellitus. Shoulder surgery. Gallbladder surgery last week. SOCIAL HISTORY: He is single. He denies tobacco nor alcohol use. FAMILY HISTORY: Noncontributory. REVIEW OF SYSTEMS: CONSTITUTIONAL: He reports that prior to becoming ill, he was feeling fairly well with good appetite. CARDIAC: No chest pain. PULMONARY: No cough or hemoptysis. GI: As above. PHYSICAL EXAMINATION: GENERAL: The patient is a pleasant, alert, comfortable appearing male who is cooperative and answers questions appropriately with the emergency medical technician. SKIN: Warm and dry. He is anicteric. CHEST: Clear. CARDIAC: Normal S1, S2. ABDOMEN: Soft, nondistended. Normal bowel sounds. The ELAINA drain does have some bilious fluid within it. DIAGNOSTIC DATA: His preoperative MRCP on April 19 described moderate intrahepatic biliary ductal dilatation with a distal common bile duct of only 5 mm. However, there was a 1.2 cm length of bile duct in the joan hepatis that appeared to be obscured due to a mass effect from the stone within the gallbladder, i.e., Mirizzi's syndrome. LABORATORIES: White blood cell count 10.9, hemoglobin 7.6, platelets 133,000. Sodium 133, potassium 4.3, BUN 85, creatinine 7.1, calcium 7.1. Total bilirubin 2.0, AST 38, ALT 72, alkaline phosphatase 392, albumin 4.0. IMPRESSION: Given the patient's clinical history, I suspect his possible bile leak would be certainly related to at least the open gallbladder remnant with associated flow of bile into the abdominal cavity and out the Eric-Ley drain. This may simply represent some bile leak due to the open gallbladder remnant and flow of bile following the path of least resistance. However, the other concern would be that of continued obstruction of the bile duct from either residual inflammation and/or a common duct stone. I did review with him in detail with the emergency medical technician that I do suspect that he will need an ERCP ultimately for further evaluation of the biliary anatomy and placement of a bile duct stent to help any possible bile leak to ultimately resolve. However, this is certainly not urgent given the current good drainage that is being afforded by the ELAINA drain and no sign of any biliary peritonitis. At this point, I do not think his condition is optimal for further anesthesia and intervention with ERCP at this time due to his metabolic status with renal failure and significant anemia. I would recommend continued stabilization of those problems. In the meantime, I have ordered a followup MRCP to reassess his biliary anatomy status post surgery to see if the compression of the common bile duct remains. I think this will be helpful to know both prognostically and in regard to the probable need for ERCP. We may also want him to have a HIDA scan to assess the patency of the common bile duct on that basis and assess the extent of the bile leak versus the amount of normal biliary drainage into the duodenum. All these results might give us helpful prognostic information to know whether the leak will ultimately resolve on its own or whether he will need intervention. Again, I do not think the ERCP is urgent given his significant medical problems at the present time and no apparent pressing issues in regard to the possible bile leak. Once we have obtained the information from his imaging studies and observed his clinical course over the next day or 2, we could then decide about possibly performing an ERCP for later in the week with placement of a biliary stent if it looks like a bile leak exists and ultimately will not resolve without intervention. This has all been discussed with the patient in detail with the emergency medical technician. He seems comfortable with the plan. Thank you for the consultation. MD KAY Mckeon/KINDRA / [phone] MTDAd
[2024-04-24 05:46] LABS: HBS Num1 99.38 mIU/mL (0-7.99); HBc Num1 0.04 S/CO (0.00-0.79); HBsAGNum1 0.23 S/CO (0.00-0.99); Hepatitis B Core Antibody Nonreactive (Nonreactive); Hepatitis B Surface Antigen Negative (Negative); ~Hepatitis B Surface Antibody REACTIVE (Nonreactive)
[2024-04-24] MEDS: Pantoprazole Sodium 40 MG/10 ML VIAL IVPUSH (06:24)
[2024-04-24] MEDS: Piperacillin Sodium/Tazobactam 4.5 GM in 0.9 % Sodium Chloride 100 ML IV ×2 (06:24→17:25)
[2024-04-24 06:52] LABS: Hematocrit 24.3 % (42.0-52.0); Hemoglobin 8.7 g/dl (14.0-18.0); Mean Corpuscular HGB Conc 35.8 g/dl (31.0-36.0); Mean Corpuscular Hemoglobin 30.5 pg (27.0-33.0); Mean Corpuscular Volume 85.3 fL (80.0-98.0); Mean Platelet Volume 9.8 fL (9.4-12.4); Platelet Count 162 X10*3/uL (160-400); Red Blood Count 2.85 X10*6/uL (4.60-5.80); White Blood Count 9.5 X10*3/uL (4.8-10.8)
[2024-04-24 06:56] LABS: INTERNATIONAL NORM RATIO 1.1 (0.9-1.1); Prothrombin Time 13.8 SEC (11.1-13.3)
[2024-04-24 07:26] LABS: Glucose, Whole Blood 41 mg/dL (60-115)
[2024-04-24] MEDS: Dextrose 10 % 250 ML 750 ML IV (07:27)
[2024-04-24 07:29] VITALS: BP 192/87; PULSE 69; RESP 20; TEMP 36.1; O2SAT 100
[2024-04-24 07:49] LABS: Alanine Aminotransferase 64 U/L (0-40); Albumin Level 3.7 g/dL (3.5-5.0); Alkaline Phosphatase 511 U/L (39-117); Anion Gap 19 (12-20); Aspartate Amino Transferase 40 U/L (5-37); Bilirubin Direct 1.8 mg/dL (0.0-0.5); Bilirubin Total 2.3 mg/dL (0.0-1.0); Blood Urea Nitrogen 42 mg/dL (9-16); Calcium 8.9 mg/dL (8.4-10.2); Carbon Dioxide 18 mmol/L (22-29); Chloride 105 mmol/L (96-108); Creatinine Clr Calc Pharmacy 15.6; Estimated Glomerular Filt Rate 15; Glucose Random 42 mg/dL (60-115); Potassium 3.7 mmol/L (3.3-5.1); Sodium 138 mmol/L (135-145); Total Protein 6.7 g/dL (6.5-8.0)
[2024-04-24] MEDS: Dextrose 5 % and Lactated Ring 1,000 ML 50 ML IVCONT (07:59)
--- NOTE | 2024-04-24 08:12 | P.PNGS_ITS ---
Subjective Subjective Date of Service: 04/24/24 Interval history: More awake and alert; asking for liquids this morning; did having vomiting yesterday afternoon, therefore made NPO. MRI planned for today. ELAINA output appears more serosanginous today. Started dialysis yesterday. Physical Exam 2 Vital Signs: Vital Signs: Last Vital Signs Temp 97.0 F 04/24/24 07:29 Pulse 69 04/24/24 07:29 Resp 20 04/24/24 07:29 BP 192/87 H 04/24/24 07:29 Pulse Ox 100 04/24/24 07:29 O2 Del Method Nasal Cannula 04/24/24 07:29 O2 Flow Rate 2 04/24/24 07:29 BMI result Body Mass Index 23.4 Const: General: comfortable Nutritional Appearance: well nourished Resp: Effort & Inspection: normal respiratory effort GI: Other: ELAINA with thin serosanginous output, not bilious Inspection: Yes normal to inspection Palpation (GI): Soft to palpation, nontender, no guarding and not rigid Skin: General skin exam: no rashes or lesions noted Objective Data Active Medications Amlodipine Besylate (Amlodipine Besylate 10 Mg Tablet) 10 mg PO DAILY [facility]; Protocol Last Admin: 04/19/24 07:57 Dose: 10 mg Documented By: KADY Atorvastatin Calcium (Atorvastatin Calcium 80 Mg Tablet) 80 mg PO DAILY [facility] Last Admin: 04/23/24 08:31 Dose: 80 mg Documented By: WAQAS Benztropine Mesylate (Benztropine Mesylate 0.5 Mg Tablet) 0.5 mg PO DAILY [facility] Last Admin: 04/23/24 08:32 Dose: 0.5 mg Documented By: WAQAS Bisacodyl (Bisacodyl 5 Mg Tablet.Dr) 10 mg PO DAILY [facility] Last Admin: 04/23/24 08:32 Dose: 10 mg Documented By: WAQAS Calcium Carbonate (Calcium Carbonate 500 Mg Tablet) 500 mg PO DAILY [facility] Last Admin: 04/23/24 08:31 Dose: 500 mg Documented By: WAQAS Carvedilol (Carvedilol 6.25 Mg Tablet) 6.25 mg PO BID [facility]; Protocol Last Admin: 04/23/24 08:33 Dose: 6.25 mg Documented By: WAQAS Diphenhydramine HCl (Diphenhydramine Hcl 25 Mg Capsule) 25 mg PO BEDTIME [facility] Last Admin: 04/21/24 20:37 Dose: 25 mg Documented By: CINTHIA Docusate Sodium (Docusate Sodium 100 Mg Capsule) 100 mg PO BID [facility] Last Admin: 04/23/24 21:11 Dose: Not Given Documented By: MARICRUZ Non-Admin Reason: NPO Ferrous Sulfate (Ferrous Sulfate 324 Mg Tablet.Dr) 324 mg PO DAILY [facility] Last Admin: 04/23/24 08:31 Dose: 324 mg Documented By: WAQAS Gabapentin (Gabapentin 100 Mg Capsule) 100 mg PO BID [facility] Last Admin: 04/22/24 08:07 Dose: 100 mg Documented By: TAWANA Glucose (Glucose Gel 15 Gm Gel..Gram.) 15 gm PO Q15M PRN; Protocol PRN Reason: per Hypoglycemia Standing Ord. Hydralazine HCl (Hydralazine Hcl 50 Mg Tablet) 150 mg PO BID [facility]; Protocol Last Admin: 04/21/24 09:24 Dose: Not Given Documented By: TAWANA Non-Admin Reason: Physician Held Med Piperacillin Sod/Tazobactam (Sod 4.5 gm/ Sodium Chloride) 100 mls @ 200 mls/hr IV Q12H [facility] Last Infusion: 04/24/24 06:55 Dose: Infused Documented By: WAQAS Dextrose (D10) 250 mls @ 750 mls/hr IV Q15M PRN; Protocol PRN Reason: per Hypoglycemia Standing Ord. Last Admin: 04/24/24 07:27 Dose: 750 mls/hr Documented By: WAQAS Acetaminophen (Ofirmev) 1,000 mg in 100 mls @ 400 mls/hr IV Q6H PRN PRN Reason: Pain, Severe (Pain Scale 7-10) Last Infusion: 04/22/24 23:35 Dose: Infused Documented By: YANELISLAMDavie Dextrose/Lactated Ringer's (D5lr) 1,000 mls @ 50 mls/hr IVCONT .Q20H [facility] Last Admin: 04/24/24 07:59 Dose: 50 mls/hr Documented By: WAQAS Insulin Glargine (Insulin Glargine,Hum.Rec.Anlog 100 Unit/Ml 10 Ml Vial) 10 unit SUBCUT DAILY [facility] Last Admin: 04/23/24 08:33 Dose: 10 unit Documented By: WAQAS Insulin Human Lispro (Insulin Lispro 100 Unit/Ml 3 Ml Vial) 0 unit SUBCUT QIDACHS [facility]; Protocol Last Admin: 04/24/24 07:33 Dose: Not Given Documented By: WAQAS Non-Admin Reason: No Insulin Coverage Magnesium Hydroxide (Milk Of Magnesia 30 Ml Oral.Susp) 30 ml PO DAILY PRN PRN Reason: Constipation Ondansetron HCl (Ondansetron Hcl 4 Mg/2 Ml Vial) 4 mg IVPUSH Q8H PRN PRN Reason: Nausea and Vomiting Last Admin: 04/23/24 06:24 Dose: 4 mg Documented By: FAITH Pantoprazole Sodium (Pantoprazole Sodium 40 Mg/10 Ml Vial) 40 mg IVPUSH DAILY@0630 [facility] Last Admin: 04/24/24 06:24 Dose: 40 mg Documented By: MARICRUZ Sodium Bicarbonate (Sodium Bicarbonate 650 Mg Tablet) 650 mg PO QID [facility] Last Admin: 04/23/24 21:12 Dose: Not Given Documented By: MARICRUZ Non-Admin Reason: NPO Sodium Chloride (0.9 % Sodium Chloride Flush 3 Ml Syringe) 3 ml IVFLUSH QSHIFT [facility] Last Admin: 04/24/24 07:37 Dose: Not Given Documented By: WAQAS Non-Admin Reason: IV Running Tamsulosin HCl (Tamsulosin Hcl 0.4 Mg Capsule) 0.4 mg PO DAILY [facility] Last Admin: 04/23/24 08:32 Dose: 0.4 mg Documented By: WAQAS Trazodone HCl (Trazodone Hcl 50 Mg Tablet) 50 mg PO BEDTIME MRX1 PRN PRN Reason: Insomnia Last Admin: 04/18/24 21:01 Dose: 50 mg Documented By: JASMINA Ziprasidone (Ziprasidone 60 Mg Capsule) 60 mg PO BID [facility] Last Admin: 04/22/24 08:07 Dose: 60 mg Documented By: TAWANA Labs 04/24/24 06:01 04/24/24 06:01 Labs: Laboratory Results - last 24 hr 04/23/24 04/23/24 04/23/24 11:29 12:45 15:49 MCV MCH MCHC RDW Plt Count MPV Absolute Nucleated RBC Nucleated RBC % (auto) PT INR Anion Gap Estim Creat Clear Calc Estimated GFR POC Glucose 78 150 H Random Glucose Calcium Total Bilirubin Direct Bilirubin AST ALT Alkaline Phosphatase Total Protein Albumin Hep Bs Antigen Negative Hep Bs Antibody REACTIVE Hep B Core Total Ab Nonreactive 04/23/24 04/24/24 04/24/24 21:09 06:01 07:23 MCV 85.3 MCH 30.5 MCHC 35.8 RDW 16.0 Plt Count 162 MPV 9.8 Absolute Nucleated RBC 0.000 Nucleated RBC % (auto) 0.0 PT 13.8 H INR 1.1 Anion Gap 19 Estim Creat Clear Calc 15.6 Estimated GFR 15 POC Glucose 78 41 L* Random Glucose 42 L* Calcium 8.9 D Total Bilirubin 2.3 H Direct Bilirubin 1.8 H AST 40 H ALT 64 H Alkaline Phosphatase 511 H Total Protein 6.7 Albumin 3.7 Hep Bs Antigen Hep Bs Antibody Hep B Core Total Ab Microbiology Microbiology Results: Microbiology 04/18/24 17:06 Blood Culture - Final Blood - Venous No growth after 5 days. Procedures Date of Service Date of Service: 04/24/24 Progress Note: A&P Assessment and plan (1) Acute cholecystitis: Status: Acute (2) Obstructive jaundice: Status: Acute Plan Patient mental status improved today. He had nausea and vomiting yesterday but is requesting liquids today. MRI scheduled for today. Appreciate Dr. Trammell' input. ELAINA output does not look bilious now. Time Spent With Patient Time: Total time managing care of this patient today ____ minutes. Quality Stroke Does the patient have a stroke diagnosis?: No VTE Prior VTE?: No VTE Risk Level:: Medical - moderate - high VTE Device Contraindication: Treatment Not Indicated VTE Drug Contraindication: N/A - Med Ordered
[2024-04-24 08:15] LABS: Glucose, Whole Blood 139 mg/dL (60-115)
--- NOTE | 2024-04-24 10:34 | P.PNNP_ITS ---
Subjective Subjective Date of Service: 04/26/24 Interval history: He is much more alert today. Had dialysis yesterday. He says he has feeling better no more nausea or vomiting Physical Exam 2 Vital Signs: Vital Signs: Last Vital Signs Temp 97.0 F 04/24/24 07:29 Pulse 69 04/24/24 07:29 Resp 20 04/24/24 07:29 BP 192/87 H 04/24/24 07:29 Pulse Ox 100 04/24/24 07:29 O2 Del Method Nasal Cannula 04/24/24 07:29 O2 Flow Rate 2 04/24/24 07:29 BMI result Body Mass Index 23.4 Const: General: comfortable and ill appearing Nutritional Appearance: well nourished Orientation/consciousness: patient oriented x3 HEENT: Head: No normal to inspection Mouth: moist mucous membranes Neck: Neck: Yes supple and Yes no JVD Resp: Auscultation: clear to auscultation bilaterally, no rales and rub present Cardio: Jugular venous distension: no JVD Palpation: no palpable S3 and no palpable S4 Heart sounds: no rubs GI: Inspection: Yes distended Palpation (GI): Soft to palpation and Tenderness to palpation present (GI) Auscultation: normal bowel sounds : General: Yes no CVA tenderness Back/Spine/Pelvis: Back: no CVA tenderness Skin: General skin exam: no rashes or lesions noted Neuro: General: patient oriented x3 Motor exam (neuro): no asterixis Extrem: General: Yes no pedal edema and No clubbing Objective Data Labs 04/26/24 05:59 04/26/24 05:59 Labs: Laboratory Results - last 24 hr 04/23/24 04/23/24 04/23/24 11:29 12:45 15:49 WBC RBC Hgb Hct MCV MCH MCHC RDW Plt Count MPV Absolute Nucleated RBC Nucleated RBC % (auto) PT INR Sodium Potassium Chloride Carbon Dioxide Anion Gap BUN Creatinine Estim Creat Clear Calc Estimated GFR POC Glucose 78 150 H Random Glucose Calcium Total Bilirubin Direct Bilirubin AST ALT Alkaline Phosphatase Total Protein Albumin Hep Bs Antigen Negative Hep Bs Antibody REACTIVE Hep B Core Total Ab Nonreactive 04/23/24 04/24/24 04/24/24 21:09 06:01 07:23 WBC 9.5 RBC 2.85 L Hgb 8.7 L Hct 24.3 L MCV 85.3 MCH 30.5 MCHC 35.8 RDW 16.0 Plt Count 162 MPV 9.8 Absolute Nucleated RBC 0.000 Nucleated RBC % (auto) 0.0 PT 13.8 H INR 1.1 Sodium 138 Potassium 3.7 Chloride 105 Carbon Dioxide 18 L Anion Gap 19 BUN 42 H Creatinine 4.24 H* Estim Creat Clear Calc 15.6 Estimated GFR 15 POC Glucose 78 41 L* Random Glucose 42 L* Calcium 8.9 D Total Bilirubin 2.3 H Direct Bilirubin 1.8 H AST 40 H ALT 64 H Alkaline Phosphatase 511 H Total Protein 6.7 Albumin 3.7 Hep Bs Antigen Hep Bs Antibody Hep B Core Total Ab 04/24/24 08:11 WBC RBC Hgb Hct MCV MCH MCHC RDW Plt Count MPV Absolute Nucleated RBC Nucleated RBC % (auto) PT INR Sodium Potassium Chloride Carbon Dioxide Anion Gap BUN Creatinine Estim Creat Clear Calc Estimated GFR POC Glucose 139 H Random Glucose Calcium Total Bilirubin Direct Bilirubin AST ALT Alkaline Phosphatase Total Protein Albumin Hep Bs Antigen Hep Bs Antibody Hep B Core Total Ab Microbiology Microbiology Results: Microbiology 04/18/24 17:06 Blood - Venous Blood Culture - Final No growth after 5 days. 04/20/24 02:51 Blood - Venous Blood Culture - Preliminary No growth after 48 hours. 04/20/24 02:50 Blood - Venous Blood Culture - Preliminary No growth after 48 hours. 04/18/24 17:06 Blood - Venous Blood Culture - Final Coag negative Staphylococcus Procedures Date of Service Date of Service: 04/26/24 Assessment & Plan Assessment and plan (1) Acute kidney injury superimposed on chronic kidney disease: Status: Acute (2) Acute on chronic anemia: Status: Resolved Plan Middle-aged man with acute kidney injury superimposed on CKD. Biopsy showed evidence of TMA in the past Baseline creatinine is around 2.5 mg/dL. He sustained superimposed KWAME due to hypoperfusion. Has probably progressed to ATN. Status post dialysis on 04/22/2024. Currently urine output is improving. She will hold dialysis with the next 24-48 hours and reassess renal function. No overt signs or symptoms of uremia. Optimize hemoglobin s/p erythropoietin Time Spent With Patient Time: Total time managing care of this patient today ____ minutes. Progress Note: Quality Stroke Does the patient have a stroke diagnosis?: No
[2024-04-24 11:20] VITALS: BP 177/83; PULSE 69; RESP 20; TEMP 36.6; O2SAT 96
[2024-04-24 11:41] LABS: Glucose, Whole Blood 129 mg/dL (60-115)
--- NOTE | 2024-04-24 14:31 | P.PNIM_ITS ---
Subjective Subjective Date of Service: 04/25/24 Interval History: f/u renal failure needing dialysis s/p CCY complicated by bile leak, encephalopathy now resolved. overall doing better, no fever, no confusion. Physical Exam 2 Vital Signs: Vital Signs: Last Vital Signs Temp 97.8 F 04/24/24 11:20 Pulse 69 04/24/24 11:20 Resp 20 04/24/24 11:20 BP 177/83 H 04/24/24 11:20 Pulse Ox 96 04/24/24 11:20 O2 Del Method Nasal Cannula 04/24/24 11:20 O2 Flow Rate 2 04/24/24 11:20 BMI result Body Mass Index 23.4 General: AO X 3, no acute distress Resp: CTA bilateral CVS: S1,S2,RRR GI: +BS, NT, no distention, drain in place Skin: No rash Neuro: motor grossly intact Psych: appropriate affect Objective Data Active Medications Amlodipine Besylate (Amlodipine Besylate 10 Mg Tablet) 10 mg PO DAILY [facility]; Protocol Last Admin: 04/19/24 07:57 Dose: 10 mg Documented By: KADY Atorvastatin Calcium (Atorvastatin Calcium 80 Mg Tablet) 80 mg PO DAILY [facility] Last Admin: 04/23/24 08:31 Dose: 80 mg Documented By: WAQAS Benztropine Mesylate (Benztropine Mesylate 0.5 Mg Tablet) 0.5 mg PO DAILY [facility] Last Admin: 04/23/24 08:32 Dose: 0.5 mg Documented By: WAQAS Bisacodyl (Bisacodyl 5 Mg Tablet.) 10 mg PO DAILY [facility] Last Admin: 04/23/24 08:32 Dose: 10 mg Documented By: WAQAS Calcium Carbonate (Calcium Carbonate 500 Mg Tablet) 500 mg PO DAILY [facility] Last Admin: 04/23/24 08:31 Dose: 500 mg Documented By: WAQAS Carvedilol (Carvedilol 6.25 Mg Tablet) 6.25 mg PO BID [facility]; Protocol Last Admin: 04/23/24 08:33 Dose: 6.25 mg Documented By: WAQAS Diphenhydramine HCl (Diphenhydramine Hcl 25 Mg Capsule) 25 mg PO BEDTIME [facility] Last Admin: 04/21/24 20:37 Dose: 25 mg Documented By: CINTHIA Docusate Sodium (Docusate Sodium 100 Mg Capsule) 100 mg PO BID [facility] Last Admin: 04/24/24 10:10 Dose: Not Given Documented By: WAQAS Non-Admin Reason: NPO Ferrous Sulfate (Ferrous Sulfate 324 Mg Tablet.Dr) 324 mg PO DAILY [facility] Last Admin: 04/23/24 08:31 Dose: 324 mg Documented By: WAQAS Gabapentin (Gabapentin 100 Mg Capsule) 100 mg PO BID [facility] Last Admin: 04/22/24 08:07 Dose: 100 mg Documented By: TAWANA Glucose (Glucose Gel 15 Gm Gel..Gram.) 15 gm PO Q15M PRN; Protocol PRN Reason: per Hypoglycemia Standing Ord. Hydralazine HCl (Hydralazine Hcl 50 Mg Tablet) 150 mg PO BID [facility]; Protocol Last Admin: 04/21/24 09:24 Dose: Not Given Documented By: TAWANA Non-Admin Reason: Physician Held Med Piperacillin Sod/Tazobactam (Sod 4.5 gm/ Sodium Chloride) 100 mls @ 200 mls/hr IV Q12H [facility] Last Infusion: 04/24/24 06:55 Dose: Infused Documented By: WAQAS Dextrose (D10) 250 mls @ 750 mls/hr IV Q15M PRN; Protocol PRN Reason: per Hypoglycemia Standing Ord. Last Infusion: 04/24/24 07:47 Dose: Infused Documented By: WAQAS Acetaminophen (Ofirmev) 1,000 mg in 100 mls @ 400 mls/hr IV Q6H PRN PRN Reason: Pain, Severe (Pain Scale 7-10) Last Infusion: 04/22/24 23:35 Dose: Infused Documented By: LAFLAMC Dextrose/Lactated Ringer's (D5lr) 1,000 mls @ 50 mls/hr IVCONT .Q20H [facility] Last Infusion: 04/24/24 13:05 Dose: 100 mls/hr Documented By: WAQAS Insulin Glargine (Insulin Glargine,Hum.Rec.Anlog 100 Unit/Ml 10 Ml Vial) 10 unit SUBCUT DAILY [facility] Last Admin: 04/23/24 08:33 Dose: 10 unit Documented By: WAQAS Insulin Human Lispro (Insulin Lispro 100 Unit/Ml 3 Ml Vial) 0 unit SUBCUT QIDACHS [facility]; Protocol Last Admin: 04/24/24 11:55 Dose: Not Given Documented By: WAQAS Non-Admin Reason: No Insulin Coverage Magnesium Hydroxide (Milk Of Magnesia 30 Ml Oral.Susp) 30 ml PO DAILY PRN PRN Reason: Constipation Ondansetron HCl (Ondansetron Hcl 4 Mg/2 Ml Vial) 4 mg IVPUSH Q8H PRN PRN Reason: Nausea and Vomiting Last Admin: 04/23/24 06:24 Dose: 4 mg Documented By: YANELISLAMDavie Pantoprazole Sodium (Pantoprazole Sodium 40 Mg/10 Ml Vial) 40 mg IVPUSH DAILY@0630 [facility] Last Admin: 04/24/24 06:24 Dose: 40 mg Documented By: CHIOTRShayla Sodium Bicarbonate (Sodium Bicarbonate 650 Mg Tablet) 650 mg PO QID [facility] Last Admin: 04/24/24 13:41 Dose: Not Given Documented By: WAQAS Non-Admin Reason: NPO Sodium Chloride (0.9 % Sodium Chloride Flush 3 Ml Syringe) 3 ml IVFLUSH QSHIFT [facility] Last Admin: 04/24/24 07:37 Dose: Not Given Documented By: WAQAS Non-Admin Reason: IV Running Tamsulosin HCl (Tamsulosin Hcl 0.4 Mg Capsule) 0.4 mg PO DAILY [facility] Last Admin: 04/23/24 08:32 Dose: 0.4 mg Documented By: WAQAS Trazodone HCl (Trazodone Hcl 50 Mg Tablet) 50 mg PO BEDTIME MRX1 PRN PRN Reason: Insomnia Last Admin: 04/18/24 21:01 Dose: 50 mg Documented By: JASMINA Ziprasidone (Ziprasidone 60 Mg Capsule) 60 mg PO BID [facility] Last Admin: 04/22/24 08:07 Dose: 60 mg Documented By: TAWANA Labs 04/25/24 06:18 04/24/24 06:01 Labs: Laboratory Results - last 24 hr 04/23/24 04/23/24 04/24/24 15:49 21:09 06:01 MCV 85.3 MCH 30.5 MCHC 35.8 RDW 16.0 Plt Count 162 MPV 9.8 Absolute Nucleated RBC 0.000 Nucleated RBC % (auto) 0.0 PT 13.8 H INR 1.1 Anion Gap 19 Estim Creat Clear Calc 15.6 Estimated GFR 15 POC Glucose 78 Random Glucose 42 L* Calcium 8.9 D Total Bilirubin 2.3 H Direct Bilirubin 1.8 H AST 40 H ALT 64 H Alkaline Phosphatase 511 H Total Protein 6.7 Albumin 3.7 Hep Bs Antigen Negative Hep Bs Antibody REACTIVE Hep B Core Total Ab Nonreactive 04/24/24 04/24/24 04/24/24 07:23 08:11 11:38 MCV MCH MCHC RDW Plt Count MPV Absolute Nucleated RBC Nucleated RBC % (auto) PT INR Anion Gap Estim Creat Clear Calc Estimated GFR POC Glucose 41 L* 139 H 129 H Random Glucose Calcium Total Bilirubin Direct Bilirubin AST ALT Alkaline Phosphatase Total Protein Albumin Hep Bs Antigen Hep Bs Antibody Hep B Core Total Ab Microbiology Microbiology Results: Microbiology 04/18/24 17:06 Blood Culture - Final Blood - Venous No growth after 5 days. Assessment and Plan (1) Acute cholecystitis: Status: Acute (2) Obstructive jaundice: Status: Acute (3) Anemia due to chronic kidney disease: Status: Acute (4) CKD (chronic kidney disease): Status: Acute Assessment and Plan: 57 year old male with chronic normocytic anemia, htn, hld, diabetic polyneuropathy, diabetic nephropathy, chronic pain syndrome, insulin dependent type 2 diabetes, cocaine abuse, nephrotic syndrome, CKD stage 4, diastolic heart failure, and depression admitted for further management of acute cholecystitis/choledocholithiasis with obstructive jaundice. 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 mild hypocalcemia chronic -7.1( running in 8 range ):added calcium gluconate ,when able po calcium may need pth check Diabetes, hypoglycemia this morning, SSI KWAME/CKD now requiring HD, management per dialysis HFpEF--no exacerbation HTN: restart meds ( carvedilol, hydralazine, amlodipine Cocaine abuse-cocaine positive addiction med consult if needed Anemia of chronic disease with acute anemia, s/p 2 units on 5/30 H/H better DVT prophylaxis- mech devices due to anemia requiring transfusion. Full code Pt requires inpt need to stay: acute cholecystitis and cholecystsitis with obstructive jaundice requiring further imaging for further evaluation- IV antibiotics,kwame- iv fluids,anemia -needed transfusions : for these need electrolytes and prbc ,s/p open partial cholecystectomy, need surgerical follow up, npo unable to take po . Quality Stroke Does the patient have a stroke diagnosis?: No VTE Prior VTE?: No VTE Risk Level:: Medical - moderate - high VTE Device Contraindication: Treatment Not Indicated VTE Drug Contraindication: N/A - Med Ordered
[2024-04-24 15:54] VITALS: BP 172/60; PULSE 78; RESP 18; TEMP 36.6; O2SAT 94
[2024-04-24 16:20] LABS: Glucose, Whole Blood 158 mg/dL (60-115)
[2024-04-24] MEDS: Sodium Bicarbonate 650 MG TABLET PO ×2 (17:11→21:40)
[2024-04-24 19:56] VITALS: BP 160/66; PULSE 69; RESP 18; TEMP 36.4; O2SAT 96
[2024-04-24 20:22] LABS: Glucose, Whole Blood 193 mg/dL (60-115)
[2024-04-24] MEDS: Docusate Sodium 100 MG CAPSULE PO (21:40)
--- NOTE | 2024-04-24 22:46 | P.EN_ITS ---
Event Note Date of Service: 04/24/24 Event Note: GI Followup-Course noted MRCP describes a small biloma vs. a small collection, no CBD stones, and no definitive biliary obstruction at the common hepatic duct although view is somewhat limited. LFT's appear somewhat improved Rec: HIDA scan in AM to assess for bile leak and CBD patency Possible CT with contrast for further assessment of biloma vs. abscess- need Nephrology clearance for the IV contrast. F/U labs in AM. Thanks Time Spent With Patient Time: Total time managing care of this patient today ____ minutes.
[2024-04-25] VITALS (9 sets, daily range): BP systolic 122–199; BP diastolic 46–89; PULSE 65–78; RESP 18–20; TEMP 36.1–37.1; O2SAT 96–99
[2024-04-25] MEDS: 0.9 % Sodium Chloride Flush 3 ML SYRINGE IVFLUSH ×3 (01:36→16:46)
[2024-04-25] MEDS: Dextrose 5 % and Lactated Ring 1,000 ML 50 ML IVCONT (01:37)
[2024-04-25] MEDS: Pantoprazole Sodium 40 MG/10 ML VIAL IVPUSH (05:54)
[2024-04-25] MEDS: Piperacillin Sodium/Tazobactam 4.5 GM in 0.9 % Sodium Chloride 100 ML IV ×2 (05:54→16:46)
[2024-04-25 06:25] LABS: MANUAL DIFF FLAG NO
[2024-04-25 06:33] LABS: Basophils Absolute Auto 0.1 X10*3/uL (0.0-0.2); Basophils Percent Auto 0.6 % (0-2); Eosinophils Absolute Auto 0.4 X10*3/uL (0.0-0.4); Eosinophils Percent Auto 4.3 % (0-4); Imm Gran Abs Auto 0.07 X10*3/uL (0.00-0.03); Imm Gran Pct Auto 0.8 % (0.0-0.4); Lymphocytes Absolute Auto 1.1 X10*3/uL (1.2-4.9); Lymphocytes Percent Auto 11.9 % (20-40); Mean Corpuscular HGB Conc 34.8 g/dl (31.0-36.0); Mean Corpuscular Hemoglobin 29.3 pg (27.0-33.0); Mean Corpuscular Volume 84.2 fL (80.0-98.0); Mean Platelet Volume 9.4 fL (9.4-12.4); Monocytes Absolute Auto 1.3 X10*3/uL (0.1-1.2); Monocytes Percent Auto 14.5 % (2-11); Neutrophils Absolute Auto 6.1 x10*3/uL (2.0-8.3); Neutrophils Percent Auto 67.9 % (45-73); Platelet Count 157 X10*3/uL (160-400); Red Blood Count 2.73 X10*6/uL (4.60-5.80); Red Cell Distribution Width 15.8 % (11.0-16.0)
[2024-04-25 06:48] LABS: Alanine Aminotransferase 48 U/L (0-40); Albumin Level 3.3 g/dL (3.5-5.0); Alkaline Phosphatase 457 U/L (39-117); Aspartate Amino Transferase 22 U/L (5-37); Bilirubin Direct 1.4 mg/dL (0.0-0.5); Bilirubin Total 2.1 mg/dL (0.0-1.0); Total Protein 6.2 g/dL (6.5-8.0)
[2024-04-25 07:12] LABS: Glucose, Whole Blood 247 mg/dL (60-115)
[2024-04-25] MEDS: Insulin Lispro 100 UNIT/ML 3 ML VIAL SUBCUT ×3 (09:08→21:12)
--- NOTE | 2024-04-25 10:15 | MHC.CM.PN ---
Per ROUNDS discussion, Patient is not yet medically cleared for dc (IV Protonix and IV ABT); PT is recommending home with services and CM will continue to follow.
--- NOTE | 2024-04-25 10:34 | P.PNIM_ITS ---
Subjective Subjective Date of Service: 04/25/24 Interval History: f/u renal failure needing dialysis s/p CCY complicated by bile leak, encephalopathy now resolved. overall doing better, no fever, no confusion. LFTs and Bili continue to trend down Physical Exam 2 Vital Signs: Vital Signs: Last Vital Signs Temp 98.8 F 04/25/24 07:48 Pulse 76 04/25/24 07:48 Resp 20 04/25/24 07:48 BP 122/84 04/25/24 07:48 Pulse Ox 99 04/25/24 07:48 O2 Del Method Room Air 04/25/24 07:48 O2 Flow Rate 2 04/24/24 11:20 BMI result Body Mass Index 23.4 General: AO X 3, no acute distress Resp: CTA bilateral CVS: S1,S2,RRR GI: +BS, NT, no distention Skin: No rash Neuro: motor grossly intact Psych: appropriate affect Objective Data Active Medications Amlodipine Besylate (Amlodipine Besylate 10 Mg Tablet) 10 mg PO DAILY [facility]; Protocol Last Admin: 04/19/24 07:57 Dose: 10 mg Documented By: KADY Atorvastatin Calcium (Atorvastatin Calcium 80 Mg Tablet) 80 mg PO DAILY [facility] Last Admin: 04/23/24 08:31 Dose: 80 mg Documented By: WAQAS Benztropine Mesylate (Benztropine Mesylate 0.5 Mg Tablet) 0.5 mg PO DAILY [facility] Last Admin: 04/23/24 08:32 Dose: 0.5 mg Documented By: WAQAS Bisacodyl (Bisacodyl 5 Mg Tablet.) 10 mg PO DAILY [facility] Last Admin: 04/23/24 08:32 Dose: 10 mg Documented By: WAQAS Calcium Carbonate (Calcium Carbonate 500 Mg Tablet) 500 mg PO DAILY [facility] Last Admin: 04/23/24 08:31 Dose: 500 mg Documented By: WAQAS Carvedilol (Carvedilol 6.25 Mg Tablet) 6.25 mg PO BID [facility]; Protocol Last Admin: 04/23/24 08:33 Dose: 6.25 mg Documented By: WAQAS Diphenhydramine HCl (Diphenhydramine Hcl 25 Mg Capsule) 25 mg PO BEDTIME [facility] Last Admin: 04/21/24 20:37 Dose: 25 mg Documented By: CINTHIA Docusate Sodium (Docusate Sodium 100 Mg Capsule) 100 mg PO BID [facility] Last Admin: 04/24/24 21:40 Dose: 100 mg Documented By: MARICRUZ Ferrous Sulfate (Ferrous Sulfate 324 Mg Tablet.Dr) 324 mg PO DAILY [facility] Last Admin: 04/23/24 08:31 Dose: 324 mg Documented By: WAQAS Gabapentin (Gabapentin 100 Mg Capsule) 100 mg PO BID [facility] Last Admin: 04/22/24 08:07 Dose: 100 mg Documented By: TAWANA Glucose (Glucose Gel 15 Gm Gel..Gram.) 15 gm PO Q15M PRN; Protocol PRN Reason: per Hypoglycemia Standing Ord. Hydralazine HCl (Hydralazine Hcl 50 Mg Tablet) 150 mg PO BID [facility]; Protocol Last Admin: 04/21/24 09:24 Dose: Not Given Documented By: TAWANA Non-Admin Reason: Physician Held Med Piperacillin Sod/Tazobactam (Sod 4.5 gm/ Sodium Chloride) 100 mls @ 200 mls/hr IV Q12H [facility] Last Infusion: 04/25/24 06:30 Dose: Infused Documented By: MARICRUZ Dextrose (D10) 250 mls @ 750 mls/hr IV Q15M PRN; Protocol PRN Reason: per Hypoglycemia Standing Ord. Last Infusion: 04/24/24 07:47 Dose: Infused Documented By: WAQAS Acetaminophen (Ofirmev) 1,000 mg in 100 mls @ 400 mls/hr IV Q6H PRN PRN Reason: Pain, Severe (Pain Scale 7-10) Last Infusion: 04/22/24 23:35 Dose: Infused Documented By: FAITH Dextrose/Lactated Ringer's (D5lr) 1,000 mls @ 50 mls/hr IVCONT .Q20H [facility] Last Admin: 04/25/24 01:37 Dose: 50 mls/hr Documented By: MARICRUZ Insulin Glargine (Insulin Glargine,Hum.Rec.Anlog 100 Unit/Ml 10 Ml Vial) 10 unit SUBCUT DAILY [facility] Last Admin: 04/23/24 08:33 Dose: 10 unit Documented By: WAQAS Insulin Human Lispro (Insulin Lispro 100 Unit/Ml 3 Ml Vial) 0 unit SUBCUT QIDACHS [facility]; Protocol Last Admin: 04/25/24 09:08 Dose: 2 unit Documented By: ALPA Magnesium Hydroxide (Milk Of Magnesia 30 Ml Oral.Susp) 30 ml PO DAILY PRN PRN Reason: Constipation Ondansetron HCl (Ondansetron Hcl 4 Mg/2 Ml Vial) 4 mg IVPUSH Q8H PRN PRN Reason: Nausea and Vomiting Last Admin: 04/23/24 06:24 Dose: 4 mg Documented By: FAITH Pantoprazole Sodium (Pantoprazole Sodium 40 Mg/10 Ml Vial) 40 mg IVPUSH DAILY@0630 [facility] Last Admin: 04/25/24 05:54 Dose: 40 mg Documented By: MARICRUZ Sodium Bicarbonate (Sodium Bicarbonate 650 Mg Tablet) 650 mg PO QID [facility] Last Admin: 04/24/24 21:40 Dose: 650 mg Documented By: MARICRUZ Sodium Chloride (0.9 % Sodium Chloride Flush 3 Ml Syringe) 3 ml IVFLUSH QSHIFT [facility] Last Admin: 04/25/24 09:11 Dose: 3 ml Documented By: ALPA Tamsulosin HCl (Tamsulosin Hcl 0.4 Mg Capsule) 0.4 mg PO DAILY [facility] Last Admin: 04/23/24 08:32 Dose: 0.4 mg Documented By: WAQAS Trazodone HCl (Trazodone Hcl 50 Mg Tablet) 50 mg PO BEDTIME MRX1 PRN PRN Reason: Insomnia Last Admin: 04/18/24 21:01 Dose: 50 mg Documented By: JASMINA Ziprasidone (Ziprasidone 60 Mg Capsule) 60 mg PO BID [facility] Last Admin: 04/22/24 08:07 Dose: 60 mg Documented By: TAWANA Labs 04/25/24 06:18 04/24/24 06:01 Labs: Laboratory Results - last 24 hr 04/24/24 04/24/24 04/24/24 11:38 16:04 20:13 MCV MCH MCHC RDW Plt Count MPV Immature Gran % (Auto) Neut % (Auto) Lymph % (Auto) [place] % (Auto) Eos % (Auto) Baso % (Auto) Lymph # (Auto) [place] # (Auto) Eos # (Auto) Baso # (Auto) Abs Immat Gran (auto) Absolute Neuts (auto) Absolute Nucleated RBC Nucleated RBC % (auto) POC Glucose 129 H 158 H 193 H Total Bilirubin Direct Bilirubin AST ALT Alkaline Phosphatase Total Protein Albumin 04/25/24 04/25/24 06:18 07:03 MCV 84.2 MCH 29.3 MCHC 34.8 RDW 15.8 Plt Count 157 L MPV 9.4 Immature Gran % (Auto) 0.8 H Neut % (Auto) 67.9 Lymph % (Auto) 11.9 L [place] % (Auto) 14.5 H Eos % (Auto) 4.3 H Baso % (Auto) 0.6 Lymph # (Auto) 1.1 L [place] # (Auto) 1.3 H Eos # (Auto) 0.4 Baso # (Auto) 0.1 Abs Immat Gran (auto) 0.07 H Absolute Neuts (auto) 6.1 Absolute Nucleated RBC 0.000 Nucleated RBC % (auto) 0.0 POC Glucose 247 H Total Bilirubin 2.1 H Direct Bilirubin 1.4 H AST 22 ALT 48 H Alkaline Phosphatase 457 H Total Protein 6.2 L Albumin 3.3 L Microbiology Microbiology Results: Microbiology 04/20/24 02:51 Blood Culture - Final Blood - Venous No growth after 5 days. 04/20/24 02:50 Blood Culture - Final Blood - Venous No growth after 5 days. Assessment and Plan (1) Acute cholecystitis: Status: Acute (2) Obstructive jaundice: Status: Acute (3) Anemia due to chronic kidney disease: Status: Acute (4) CKD (chronic kidney disease): Status: Acute Assessment and Plan: 57 year old male with chronic normocytic anemia, htn, hld, diabetic polyneuropathy, diabetic nephropathy, chronic pain syndrome, insulin dependent type 2 diabetes, cocaine abuse, nephrotic syndrome, CKD stage 4, diastolic heart failure, and depression admitted for further management of acute cholecystitis/choledocholithiasis with obstructive jaundice. s/p CCY with post op concern for obstructive jaundice LFTS trending down MRCP 04/24: no CBC stone, no definative biliary obstruction, possible small collection HIDA scan today to rule bile lead further management per surgery Toxic metabolic encephalopathy--likely multifactorial uremia, above, minimize pain and sedative--seems to be a baseline now Hyponatremia--resolved. mild hypocalcemia chronic -7.1( running in 8 range ):added calcium gluconate ,when able po calcium may need pth check Diabetes, hypoglycemia resolved, stop IVF, liquid per surgery KWAME/CKD now requiring HD, management per dialysis, has signficant output HFpEF--no exacerbation HTN: restart meds carvedilol, amlodipine..hold Hydralazine Cocaine abuse-cocaine positive addiction med consult if needed Anemia of chronic disease with acute anemia, s/p 2 units on 5/30 H/H better DVT prophylaxis- mech devices due to anemia requiring transfusion. Full code Pt requires inpt need to stay: acute cholecystitis and cholecystsitis with obstructive jaundice requiring further imaging for further evaluation- IV antibiotics,kwame- iv fluids,anemia -needed transfusions : for these need electrolytes and prbc ,s/p open partial cholecystectomy, need surgerical follow up, npo unable to take po . Quality Stroke Does the patient have a stroke diagnosis?: No VTE Prior VTE?: No VTE Risk Level:: Medical - moderate - high VTE Device Contraindication: Treatment Not Indicated VTE Drug Contraindication: N/A - Med Ordered
[2024-04-25 12:13] LABS: Glucose, Whole Blood 157 mg/dL (60-115)
[2024-04-25] MEDS: Tamsulosin HCL 0.4 MG CAPSULE PO (12:38)
[2024-04-25] MEDS: Sodium Bicarbonate 650 MG TABLET PO ×4 (12:38→21:09)
[2024-04-25] MEDS: Docusate Sodium 100 MG CAPSULE PO ×2 (12:38→21:09)
--- NOTE | 2024-04-25 12:44 | PM.PNGS ---
Subjective Subjective Date of Service: 04/25/24 Interval history: Patient reports incisional pain, denies nausea or vomiting. He is asking for liquids. Physical Exam Vital Signs: Vital Signs: Last Vital Signs Temp 97.6 F 04/25/24 12:00 Pulse 67 04/25/24 12:00 Resp 20 04/25/24 12:00 BP 122/84 04/25/24 07:48 Pulse Ox 97 04/25/24 12:00 O2 Del Method Room Air 04/25/24 12:00 O2 Flow Rate 2 04/24/24 11:20 BMI result Body Mass Index 23.4 Const: General: no acute distress Nutritional Appearance: well nourished Orientation/consciousness: patient oriented x3 Resp: Effort & Inspection: normal respiratory effort GI: Other: Incision clean, dry, and intact. ELAINA intact with some serous discharge from the insertion site. Dressings changed. ELAINA full with serous fluid. No bile tinge noted Skin: General skin exam: no rashes or lesions noted Neuro: General: patient oriented x3 Objective Data Active Medications Amlodipine Besylate (Amlodipine Besylate 10 Mg Tablet) 10 mg PO DAILY [facility]; Protocol Last Admin: 04/19/24 07:57 Dose: 10 mg Documented By: KADY Benztropine Mesylate (Benztropine Mesylate 0.5 Mg Tablet) 0.5 mg PO DAILY [facility] Last Admin: 04/23/24 08:32 Dose: 0.5 mg Documented By: WAQAS Bisacodyl (Bisacodyl 5 Mg Tablet.) 10 mg PO DAILY [facility] Last Admin: 04/23/24 08:32 Dose: 10 mg Documented By: WAQAS Calcium Carbonate (Calcium Carbonate 500 Mg Tablet) 500 mg PO DAILY [facility] Last Admin: 04/23/24 08:31 Dose: 500 mg Documented By: WAQAS Carvedilol (Carvedilol 6.25 Mg Tablet) 6.25 mg PO BID [facility]; Protocol Last Admin: 04/23/24 08:33 Dose: 6.25 mg Documented By: WAQAS Docusate Sodium (Docusate Sodium 100 Mg Capsule) 100 mg PO BID [facility] Last Admin: 04/25/24 12:38 Dose: 100 mg Documented By: ALPA Ferrous Sulfate (Ferrous Sulfate 324 Mg Tablet.) 324 mg PO DAILY [facility] Last Admin: 04/23/24 08:31 Dose: 324 mg Documented By: WAQAS Gabapentin (Gabapentin 100 Mg Capsule) 100 mg PO BID [facility] Last Admin: 04/22/24 08:07 Dose: 100 mg Documented By: TAWANA Glucose (Glucose Gel 15 Gm Gel..Gram.) 15 gm PO Q15M PRN; Protocol PRN Reason: per Hypoglycemia Standing Ord. Piperacillin Sod/Tazobactam (Sod 4.5 gm/ Sodium Chloride) 100 mls @ 200 mls/hr IV Q12H [facility] Last Infusion: 04/25/24 06:30 Dose: Infused Documented By: MARICRUZ Dextrose (D10) 250 mls @ 750 mls/hr IV Q15M PRN; Protocol PRN Reason: per Hypoglycemia Standing Ord. Last Infusion: 04/24/24 07:47 Dose: Infused Documented By: WAQAS Acetaminophen (Ofirmev) 1,000 mg in 100 mls @ 400 mls/hr IV Q6H PRN PRN Reason: Pain, Severe (Pain Scale 7-10) Last Infusion: 04/22/24 23:35 Dose: Infused Documented By: FAITH Insulin Glargine (Insulin Glargine,Hum.Rec.Anlog 100 Unit/Ml 10 Ml Vial) 10 unit SUBCUT DAILY [facility] Last Admin: 04/23/24 08:33 Dose: 10 unit Documented By: WAQAS Insulin Human Lispro (Insulin Lispro 100 Unit/Ml 3 Ml Vial) 0 unit SUBCUT QIDACHS [facility]; Protocol Last Admin: 04/25/24 12:19 Dose: Not Given Documented By: ALPA Non-Admin Reason: No Insulin Coverage Magnesium Hydroxide (Milk Of Magnesia 30 Ml Oral.Susp) 30 ml PO DAILY PRN PRN Reason: Constipation Ondansetron HCl (Ondansetron Hcl 4 Mg/2 Ml Vial) 4 mg IVPUSH Q8H PRN PRN Reason: Nausea and Vomiting Last Admin: 04/23/24 06:24 Dose: 4 mg Documented By: FAITH Pantoprazole Sodium (Pantoprazole Sodium 40 Mg/10 Ml Vial) 40 mg IVPUSH DAILY@0630 [facility] Last Admin: 04/25/24 05:54 Dose: 40 mg Documented By: MARICRUZ Sodium Bicarbonate (Sodium Bicarbonate 650 Mg Tablet) 650 mg PO QID [facility] Last Admin: 04/25/24 12:38 Dose: 650 mg Documented By: ALPA Sodium Chloride (0.9 % Sodium Chloride Flush 3 Ml Syringe) 3 ml IVFLUSH QSHIFT [facility] Last Admin: 04/25/24 09:11 Dose: 3 ml Documented By: ALPA Tamsulosin HCl (Tamsulosin Hcl 0.4 Mg Capsule) 0.4 mg PO DAILY [facility] Last Admin: 04/25/24 12:38 Dose: 0.4 mg Documented By: ALPA Trazodone HCl (Trazodone Hcl 50 Mg Tablet) 50 mg PO BEDTIME MRX1 PRN PRN Reason: Insomnia Last Admin: 04/18/24 21:01 Dose: 50 mg Documented By: JASMINA Ziprasidone (Ziprasidone 60 Mg Capsule) 60 mg PO BID [facility] Last Admin: 04/22/24 08:07 Dose: 60 mg Documented By: TAWANA Labs 04/25/24 06:18 04/24/24 06:01 Labs: Laboratory Results - last 24 hr 04/24/24 04/24/24 04/25/24 16:04 20:13 06:18 MCV 84.2 MCH 29.3 MCHC 34.8 RDW 15.8 Plt Count 157 L MPV 9.4 Immature Gran % (Auto) 0.8 H Neut % (Auto) 67.9 Lymph % (Auto) 11.9 L [place] % (Auto) 14.5 H Eos % (Auto) 4.3 H Baso % (Auto) 0.6 Lymph # (Auto) 1.1 L [place] # (Auto) 1.3 H Eos # (Auto) 0.4 Baso # (Auto) 0.1 Abs Immat Gran (auto) 0.07 H Absolute Neuts (auto) 6.1 Absolute Nucleated RBC 0.000 Nucleated RBC % (auto) 0.0 POC Glucose 158 H 193 H Total Bilirubin 2.1 H Direct Bilirubin 1.4 H AST 22 ALT 48 H Alkaline Phosphatase 457 H Total Protein 6.2 L Albumin 3.3 L 04/25/24 04/25/24 07:03 12:01 MCV MCH MCHC RDW Plt Count MPV Immature Gran % (Auto) Neut % (Auto) Lymph % (Auto) [place] % (Auto) Eos % (Auto) Baso % (Auto) Lymph # (Auto) [place] # (Auto) Eos # (Auto) Baso # (Auto) Abs Immat Gran (auto) Absolute Neuts (auto) Absolute Nucleated RBC Nucleated RBC % (auto) POC Glucose 247 H 157 H Total Bilirubin Direct Bilirubin AST ALT Alkaline Phosphatase Total Protein Albumin Microbiology Microbiology Results: Microbiology 04/20/24 02:51 Blood Culture - Final Blood - Venous No growth after 5 days. 04/20/24 02:50 Blood Culture - Final Blood - Venous No growth after 5 days. Procedures Date of Service Date of Service: 04/25/24 Progress Note: A&P Assessment and plan (1) Acute cholecystitis: Status: Acute (2) Obstructive jaundice: Status: Acute Plan POD #5 status post laparoscopic converted to open fenestrated subtotal cholecystectomy for acute cholecystitis due to cholelithiasis. ELAINA is producing a large amount of serous fluid at this time. MRCP suggestive of fluid collection or possible bile leak. He has awaiting a HIDA scan today to evaluate for the patency of common bile duct and cystic duct leak. LFTs are slowly trending down. Advance diet once testing completed. Time Spent With Patient Time: Total time managing care of this patient today ____ minutes. Quality Stroke Does the patient have a stroke diagnosis?: No VTE Prior VTE?: No VTE Risk Level:: Medical - moderate - high VTE Device Contraindication: Treatment Not Indicated VTE Drug Contraindication: N/A - Med Ordered
[2024-04-25 16:26] LABS: Glucose, Whole Blood 246 mg/dL (60-115)
[2024-04-25] MEDS: hydrALAZINE HCl 20 MG/ML VIAL 10 MG IVPUSH (16:45)
[2024-04-25 20:20] LABS: Glucose, Whole Blood 268 mg/dL (60-115)
[2024-04-25] MEDS: carvediloL 6.25 MG TABLET PO (21:09)
--- NOTE | 2024-04-25 21:32 | PM.PNNEP ---
Subjective Subjective Date of Service: 04/25/24 Interval history: Overall doing better, no fever, no confusion.UO improved; Denies uremic symptoms Physical Exam Vital Signs: Vital Signs: Last Vital Signs Temp 97.7 F 04/25/24 19:17 Pulse 74 04/25/24 19:17 Resp 20 04/25/24 19:17 BP 140/72 H 04/25/24 19:17 Pulse Ox 98 04/25/24 19:17 O2 Del Method Room Air 04/25/24 19:17 O2 Flow Rate 2 04/24/24 11:20 BMI result Body Mass Index 23.4 Const: General: no acute distress Orientation/consciousness: patient oriented x3 Eyes: EOM: EOMs intact bilaterally Resp: Auscultation: diminished lung sounds Cardio: Rate: regular rate GI: Palpation (GI): Soft to palpation Neuro: General: patient oriented x3 and moves all extremities Objective Data Labs 04/25/24 06:18 04/24/24 06:01 Labs: Laboratory Results - last 24 hr 04/25/24 04/25/24 04/25/24 06:18 07:03 12:01 WBC 9.0 RBC 2.73 L Hgb 8.0 L Hct 23.0 L MCV 84.2 MCH 29.3 MCHC 34.8 RDW 15.8 Plt Count 157 L MPV 9.4 Immature Gran % (Auto) 0.8 H Neut % (Auto) 67.9 Lymph % (Auto) 11.9 L [place] % (Auto) 14.5 H Eos % (Auto) 4.3 H Baso % (Auto) 0.6 Lymph # (Auto) 1.1 L [place] # (Auto) 1.3 H Eos # (Auto) 0.4 Baso # (Auto) 0.1 Abs Immat Gran (auto) 0.07 H Absolute Neuts (auto) 6.1 Absolute Nucleated RBC 0.000 Nucleated RBC % (auto) 0.0 POC Glucose 247 H 157 H Total Bilirubin 2.1 H Direct Bilirubin 1.4 H AST 22 ALT 48 H Alkaline Phosphatase 457 H Total Protein 6.2 L Albumin 3.3 L 04/25/24 04/25/24 16:13 20:15 WBC RBC Hgb Hct MCV MCH MCHC RDW Plt Count MPV Immature Gran % (Auto) Neut % (Auto) Lymph % (Auto) [place] % (Auto) Eos % (Auto) Baso % (Auto) Lymph # (Auto) [place] # (Auto) Eos # (Auto) Baso # (Auto) Abs Immat Gran (auto) Absolute Neuts (auto) Absolute Nucleated RBC Nucleated RBC % (auto) POC Glucose 246 H 268 H Total Bilirubin Direct Bilirubin AST ALT Alkaline Phosphatase Total Protein Albumin Microbiology Microbiology Results: Microbiology 04/20/24 02:51 Blood - Venous Blood Culture - Final No growth after 5 days. 04/20/24 02:50 Blood - Venous Blood Culture - Final No growth after 5 days. 04/18/24 17:06 Blood - Venous Blood Culture - Final No growth after 5 days. 04/18/24 17:06 Blood - Venous Blood Culture - Final Coag negative Staphylococcus Procedures Date of Service Date of Service: 04/25/24 Assessment & Plan Assessment and plan (1) Acute kidney injury superimposed on chronic kidney disease: Status: Acute Plan Biopsy showed evidence of TMA in the past Baseline creatinine had been around 2.5 mg/dL. KWAME on CKD due to tubular injury Status post dialysis on 04/22/2024. Currently urine output is improving. Shall continue to hold dialysis for now Labs AM; C/W rest of current management Progress Note: Quality Stroke Does the patient have a stroke diagnosis?: No
--- NOTE | 2024-04-25 23:16 | PM.EVENT ---
Event Note Date of Service: 04/25/24 Event Note: GI Followup-Course noted, chart reviewed Imp: J-P drain contents suggest cessation of bile drainage and today's HIDA scan is negative for signs of a bile leak. The HIDA also shows a patent CBD with good drainage into the duodenum as well. Rec: Given his clinical course and the results of his recent imaging studies I do not think he requires an ERCP. Would observe, advance diet as per surgery, and consider a CT of abdomen to further assess fluid collection seen on MRI if his clinical course suggests an infectious process with fevers, leukocytosis, etc. Would continue po PPI given his anemia and comorbidities. Thanks Time Spent With Patient Time: Total time managing care of this patient today ____ minutes.
[2024-04-26] VITALS (9 sets, daily range): BP systolic 133–176; BP diastolic 56–80; PULSE 67–77; RESP 18–20; TEMP 36.4–37.2; O2SAT 98–99
[2024-04-26] MEDS: Piperacillin Sodium/Tazobactam 4.5 GM in 0.9 % Sodium Chloride 100 ML IV ×2 (04:36→16:39)
[2024-04-26] MEDS: 0.9 % Sodium Chloride Flush 3 ML SYRINGE IVFLUSH ×3 (04:37→20:19)
[2024-04-26] MEDS: Omeprazole 20 MG CAPSULE.DR PO (05:10)
[2024-04-26 06:49] LABS: Anion Gap 15 (12-20); Blood Urea Nitrogen 40 mg/dL (9-16); Calcium 8.6 mg/dL (8.4-10.2); Carbon Dioxide 20 mmol/L (22-29); Chloride 107 mmol/L (96-108); Creatinine Clr Calc Pharmacy 15.3; Estimated Glomerular Filt Rate 14; Glucose Random 135 mg/dL (60-115); Potassium 3.4 mmol/L (3.3-5.1); Sodium 139 mmol/L (135-145)
[2024-04-26 06:52] LABS: Hematocrit 21.2 % (42.0-52.0); Hemoglobin 7.6 g/dl (14.0-18.0); Mean Corpuscular HGB Conc 35.8 g/dl (31.0-36.0); Mean Corpuscular Volume 83.8 fL (80.0-98.0); Platelet Count 166 X10*3/uL (160-400); Red Blood Count 2.53 X10*6/uL (4.60-5.80); Red Cell Distribution Width 15.7 % (11.0-16.0)
--- NOTE | 2024-04-26 07:52 | PM.PNGS ---
Subjective Subjective Date of Service: 04/26/24 Interval history: Hungry; denies nausea or abdominal pain. Physical Exam Vital Signs: Vital Signs: Last Vital Signs Temp 97.5 F 04/26/24 03:33 Pulse 67 04/26/24 03:33 Resp 20 04/26/24 03:33 BP 158/64 H 04/26/24 03:33 Pulse Ox 98 04/26/24 03:33 O2 Del Method Room Air 04/26/24 03:33 O2 Flow Rate 2 04/24/24 11:20 BMI result Body Mass Index 23.4 Resp: Effort & Inspection: normal respiratory effort GI: Other: Incision clean and intact; ELAINA with serosanguinous discharge. Inspection: Yes normal to inspection Palpation (GI): Soft to palpation Auscultation: normal bowel sounds Objective Data Active Medications Amlodipine Besylate (Amlodipine Besylate 10 Mg Tablet) 10 mg PO DAILY [facility]; Protocol Last Admin: 04/19/24 07:57 Dose: 10 mg Documented By: KADY Benztropine Mesylate (Benztropine Mesylate 0.5 Mg Tablet) 0.5 mg PO DAILY [facility] Last Admin: 04/23/24 08:32 Dose: 0.5 mg Documented By: WAQAS Bisacodyl (Bisacodyl 5 Mg Tablet.) 10 mg PO DAILY [facility] Last Admin: 04/23/24 08:32 Dose: 10 mg Documented By: WAQAS Calcium Carbonate (Calcium Carbonate 500 Mg Tablet) 500 mg PO DAILY [facility] Last Admin: 04/23/24 08:31 Dose: 500 mg Documented By: WAQAS Carvedilol (Carvedilol 6.25 Mg Tablet) 6.25 mg PO BID [facility]; Protocol Last Admin: 04/25/24 21:09 Dose: 6.25 mg Documented By: ASHOK Docusate Sodium (Docusate Sodium 100 Mg Capsule) 100 mg PO BID [facility] Last Admin: 04/25/24 21:09 Dose: 100 mg Documented By: ASHOK Ferrous Sulfate (Ferrous Sulfate 324 Mg Tablet.) 324 mg PO DAILY [facility] Last Admin: 04/23/24 08:31 Dose: 324 mg Documented By: WAQAS Gabapentin (Gabapentin 100 Mg Capsule) 100 mg PO BID [facility] Last Admin: 04/22/24 08:07 Dose: 100 mg Documented By: TAWANA Glucose (Glucose Gel 15 Gm Gel..Gram.) 15 gm PO Q15M PRN; Protocol PRN Reason: per Hypoglycemia Standing Ord. Piperacillin Sod/Tazobactam (Sod 4.5 gm/ Sodium Chloride) 100 mls @ 200 mls/hr IV Q12H [facility] Last Infusion: 04/26/24 05:13 Dose: Infused Documented By: EVELYN Dextrose (D10) 250 mls @ 750 mls/hr IV Q15M PRN; Protocol PRN Reason: per Hypoglycemia Standing Ord. Last Infusion: 04/24/24 07:47 Dose: Infused Documented By: WAQAS Insulin Glargine (Insulin Glargine,Hum.Rec.Anlog 100 Unit/Ml 10 Ml Vial) 10 unit SUBCUT DAILY [facility] Last Admin: 04/23/24 08:33 Dose: 10 unit Documented By: WAQAS Insulin Human Lispro (Insulin Lispro 100 Unit/Ml 3 Ml Vial) 0 unit SUBCUT QIDAS [facility]; Protocol Last Admin: 04/25/24 21:12 Dose: 4 unit Documented By: ASHOK Magnesium Hydroxide (Milk Of Magnesia 30 Ml Oral.Susp) 30 ml PO DAILY PRN PRN Reason: Constipation Omeprazole (Omeprazole 20 Mg Capsule.) 20 mg PO DAILY@0630 [facility] Last Admin: 04/26/24 05:10 Dose: 20 mg Documented By: EVELYN Ondansetron HCl (Ondansetron Hcl 4 Mg/2 Ml Vial) 4 mg IVPUSH Q8H PRN PRN Reason: Nausea and Vomiting Last Admin: 04/23/24 06:24 Dose: 4 mg Documented By: FAITH Sodium Bicarbonate (Sodium Bicarbonate 650 Mg Tablet) 650 mg PO QID [facility] Last Admin: 04/25/24 21:09 Dose: 650 mg Documented By: ASHOK Sodium Chloride (0.9 % Sodium Chloride Flush 3 Ml Syringe) 3 ml IVFLUSH QSHIFT [facility] Last Admin: 04/26/24 04:37 Dose: 3 ml Documented By: EVELYN Tamsulosin HCl (Tamsulosin Hcl 0.4 Mg Capsule) 0.4 mg PO DAILY [facility] Last Admin: 04/25/24 12:38 Dose: 0.4 mg Documented By: ALPA Trazodone HCl (Trazodone Hcl 50 Mg Tablet) 50 mg PO BEDTIME MRX1 PRN PRN Reason: Insomnia Last Admin: 04/18/24 21:01 Dose: 50 mg Documented By: JASMINA Ziprasidone (Ziprasidone 60 Mg Capsule) 60 mg PO BID [facility] Last Admin: 04/22/24 08:07 Dose: 60 mg Documented By: TAWANA Labs 04/26/24 05:59 04/26/24 05:59 Labs: Laboratory Results - last 24 hr 04/25/24 04/25/24 04/25/24 12:01 16:13 20:15 MCV MCH MCHC RDW Plt Count MPV Absolute Nucleated RBC Nucleated RBC % (auto) Anion Gap Estim Creat Clear Calc Estimated GFR POC Glucose 157 H 246 H 268 H Random Glucose Calcium 04/26/24 05:59 MCV 83.8 MCH 30.0 MCHC 35.8 RDW 15.7 Plt Count 166 MPV 10.0 Absolute Nucleated RBC 0.000 Nucleated RBC % (auto) 0.0 Anion Gap 15 Estim Creat Clear Calc 15.3 Estimated GFR 14 POC Glucose Random Glucose 135 H Calcium 8.6 Microbiology Microbiology Results: Microbiology 04/20/24 02:51 Blood Culture - Final Blood - Venous No growth after 5 days. 04/20/24 02:50 Blood Culture - Final Blood - Venous No growth after 5 days. Procedures Date of Service Date of Service: 04/26/24 Progress Note: A&P Assessment and plan (1) Acute cholecystitis: Status: Acute (2) Obstructive jaundice: Status: Acute Plan HIDA and MRI reviewed; no bile leak noted. ELAINA producing serosang fluid, no bile noted. Will advance diet. Will monitor ELAINA output; possible CT AP in continued high output. No ERCP. Time Spent With Patient Time: Total time managing care of this patient today ____ minutes. Quality Stroke Does the patient have a stroke diagnosis?: No VTE Prior VTE?: No VTE Risk Level:: Medical - moderate - high VTE Device Contraindication: Treatment Not Indicated VTE Drug Contraindication: N/A - Med Ordered
[2024-04-26 07:56] LABS: Glucose, Whole Blood 135 mg/dL (60-115)
[2024-04-26] MEDS: carvediloL 6.25 MG TABLET PO ×2 (08:18→20:10)
[2024-04-26] MEDS: amLODIPine Besylate 10 MG TABLET PO (08:19)
[2024-04-26] MEDS: Tamsulosin HCL 0.4 MG CAPSULE PO (08:19)
[2024-04-26] MEDS: Docusate Sodium 100 MG CAPSULE PO ×2 (08:19→20:10)
[2024-04-26] MEDS: Sodium Bicarbonate 650 MG TABLET PO ×4 (08:19→20:10)
--- NOTE | 2024-04-26 10:17 | P.PNIM_ITS ---
Subjective Subjective Date of Service: 04/26/24 Interval History: f/u renal failure needing dialysis s/p CCY complicated by bile leak, encephalopathy now resolved. continue to improve, no fever, tolerating regular diet Physical Exam 2 Vital Signs: Vital Signs: Last Vital Signs Temp 98.1 F 04/26/24 07:59 Pulse 71 04/26/24 08:18 Resp 18 04/26/24 07:59 BP 169/80 H 04/26/24 08:19 Pulse Ox 98 04/26/24 07:59 O2 Del Method Room Air 04/26/24 07:59 O2 Flow Rate 2 04/24/24 11:20 BMI result Body Mass Index 23.4 General: AO X 3, no acute distress Resp: CTA bilateral CVS: S1,S2,RRR GI: +BS, NT, no distention, Ihsan drain in place Skin: No rash Neuro: motor grossly intact Psych: appropriate affect Objective Data Active Medications Amlodipine Besylate (Amlodipine Besylate 10 Mg Tablet) 10 mg PO DAILY [facility]; Protocol Last Admin: 04/26/24 08:19 Dose: 10 mg Documented By: BRENT Benztropine Mesylate (Benztropine Mesylate 0.5 Mg Tablet) 0.5 mg PO DAILY [facility] Last Admin: 04/23/24 08:32 Dose: 0.5 mg Documented By: WAQAS Bisacodyl (Bisacodyl 5 Mg Tablet.) 10 mg PO DAILY [facility] Last Admin: 04/23/24 08:32 Dose: 10 mg Documented By: WAQAS Calcium Carbonate (Calcium Oyster Shell Elemental 500 Mg Tablet) 500 mg PO DAILY [facility] Carvedilol (Carvedilol 6.25 Mg Tablet) 6.25 mg PO BID [facility]; Protocol Last Admin: 04/26/24 08:18 Dose: 6.25 mg Documented By: BRENT Docusate Sodium (Docusate Sodium 100 Mg Capsule) 100 mg PO BID [facility] Last Admin: 04/26/24 08:19 Dose: 100 mg Documented By: BRENT Ferrous Sulfate (Ferrous Sulfate 324 Mg Tablet.) 324 mg PO DAILY [facility] Last Admin: 04/23/24 08:31 Dose: 324 mg Documented By: WAQAS Gabapentin (Gabapentin 100 Mg Capsule) 100 mg PO BID [facility] Last Admin: 04/22/24 08:07 Dose: 100 mg Documented By: TAWANA Glucose (Glucose Gel 15 Gm Gel..Gram.) 15 gm PO Q15M PRN; Protocol PRN Reason: per Hypoglycemia Standing Ord. Piperacillin Sod/Tazobactam (Sod 4.5 gm/ Sodium Chloride) 100 mls @ 200 mls/hr IV Q12H [facility] Last Infusion: 04/26/24 05:13 Dose: Infused Documented By: EVELYN Dextrose (D10) 250 mls @ 750 mls/hr IV Q15M PRN; Protocol PRN Reason: per Hypoglycemia Standing Ord. Last Infusion: 04/24/24 07:47 Dose: Infused Documented By: WAQAS Insulin Glargine (Insulin Glargine,Hum.Rec.Anlog 100 Unit/Ml 10 Ml Vial) 10 unit SUBCUT DAILY [facility] Last Admin: 04/23/24 08:33 Dose: 10 unit Documented By: WAQAS Insulin Human Lispro (Insulin Lispro 100 Unit/Ml 3 Ml Vial) 0 unit SUBCUT QIDACHS [facility]; Protocol Last Admin: 04/26/24 08:07 Dose: Not Given Documented By: BRENT Non-Admin Reason: [id number] Magnesium Hydroxide (Milk Of Magnesia 30 Ml Oral.Susp) 30 ml PO DAILY PRN PRN Reason: Constipation Omeprazole (Omeprazole 20 Mg Capsule.Dr) 20 mg PO DAILY@0630 [facility] Last Admin: 04/26/24 05:10 Dose: 20 mg Documented By: EVELYN Ondansetron HCl (Ondansetron Hcl 4 Mg/2 Ml Vial) 4 mg IVPUSH Q8H PRN PRN Reason: Nausea and Vomiting Last Admin: 04/23/24 06:24 Dose: 4 mg Documented By: FAITH Sodium Bicarbonate (Sodium Bicarbonate 650 Mg Tablet) 650 mg PO QID [facility] Last Admin: 04/26/24 08:19 Dose: 650 mg Documented By: BRENT Sodium Chloride (0.9 % Sodium Chloride Flush 3 Ml Syringe) 3 ml IVFLUSH QSHIFT [facility] Last Admin: 04/26/24 08:19 Dose: 3 ml Documented By: BRENT Tamsulosin HCl (Tamsulosin Hcl 0.4 Mg Capsule) 0.4 mg PO DAILY [facility] Last Admin: 04/26/24 08:19 Dose: 0.4 mg Documented By: BRENT Trazodone HCl (Trazodone Hcl 50 Mg Tablet) 50 mg PO BEDTIME MRX1 PRN PRN Reason: Insomnia Last Admin: 04/18/24 21:01 Dose: 50 mg Documented By: JASMINA Ziprasidone (Ziprasidone 60 Mg Capsule) 60 mg PO BID [facility] Last Admin: 04/22/24 08:07 Dose: 60 mg Documented By: TAWANA Labs 04/26/24 05:59 04/26/24 05:59 Labs: Laboratory Results - last 24 hr 04/25/24 04/25/24 04/25/24 12:01 16:13 20:15 MCV MCH MCHC RDW Plt Count MPV Absolute Nucleated RBC Nucleated RBC % (auto) Anion Gap Estim Creat Clear Calc Estimated GFR POC Glucose 157 H 246 H 268 H Random Glucose Calcium 04/26/24 04/26/24 05:59 07:39 MCV 83.8 MCH 30.0 MCHC 35.8 RDW 15.7 Plt Count 166 MPV 10.0 Absolute Nucleated RBC 0.000 Nucleated RBC % (auto) 0.0 Anion Gap 15 Estim Creat Clear Calc 15.3 Estimated GFR 14 POC Glucose 135 H Random Glucose 135 H Calcium 8.6 Assessment and Plan (1) Acute cholecystitis: Status: Acute (2) Obstructive jaundice: Status: Acute (3) Anemia due to chronic kidney disease: Status: Acute (4) CKD (chronic kidney disease): Status: Acute Assessment and Plan: 57 year old male with chronic normocytic anemia, htn, hld, diabetic polyneuropathy, diabetic nephropathy, chronic pain syndrome, insulin dependent type 2 diabetes, cocaine abuse, nephrotic syndrome, CKD stage 4, diastolic heart failure, and depression admitted for further management of acute cholecystitis/choledocholithiasis with obstructive jaundice. s/p CCY with post op concern for obstructive jaundice LFTS trending down MRCP 04/24: no CBC stone, no definative biliary obstruction, possible small collection HIDA scan 04/25, no bile leak further management per surgery Toxic metabolic encephalopathy--likely multifactorial uremia, above, minimize pain and sedative--resolved Hyponatremia--resolved. mild hypocalcemia chronic -7.1( running in 8 range ):added calcium gluconate ,when able po calcium Diabetes, hypoglycemia resolved, stop IVF, liquid per surgery KWAME/CKD now requiring HD on temporary basis, HD on and monitoring, has good urine output HFpEF--no exacerbation HTN: restart meds carvedilol, amlodipine and Hydralazine Cocaine abuse-cocaine positive addiction med consult if needed Anemia of chronic disease with acute anemia, s/p 2 units on 5/30 H/H stable, transfuse if hgb < 7 DVT prophylaxis- mech devices due to anemia requiring transfusion. Full code Pt requires inpt need to stay: ongoing management of acute cholecystitis, complicaed by renal failure needing dialysis. Quality Stroke Does the patient have a stroke diagnosis?: No VTE Prior VTE?: No VTE Risk Level:: Medical - moderate - high VTE Device Contraindication: Treatment Not Indicated VTE Drug Contraindication: N/A - Med Ordered
--- NOTE | 2024-04-26 10:35 | P.PNNP_ITS ---
Subjective Subjective Date of Service: 04/26/24 Interval history: Events noted. Much more alert. Continues to remain on oliguric. Marginal improvement in serum creatinine. Physical Exam 2 Vital Signs: Vital Signs: Last Vital Signs Temp 98.1 F 04/26/24 07:59 Pulse 71 04/26/24 08:18 Resp 18 04/26/24 07:59 BP 169/80 H 04/26/24 08:19 Pulse Ox 98 04/26/24 07:59 O2 Del Method Room Air 04/26/24 07:59 O2 Flow Rate 2 04/24/24 11:20 BMI result Body Mass Index 23.4 Const: General: comfortable Nutritional Appearance: well nourished O rientation/consciousness: patient oriented x3 HEENT: Head: No normal to inspection Mouth: moist mucous membranes Neck: Neck: Yes supple and Yes no JVD Resp: Auscultation: clear to auscultation bilaterally, no rales and rub present Cardio: Jugular venous distension: no JVD Palpation: no palpable S3 and no palpable S4 Heart sounds: no rubs GI: Inspection: Yes distended Palpation (GI): Soft to palpation and Tenderness to palpation present (GI) Auscultation: normal bowel sounds : General: Yes no CVA tenderness Back/Spine/Pelvis: Back: no CVA tenderness Skin: General skin exam: no rashes or lesions noted Neuro: General: patient oriented x3 Motor exam (neuro): no asterixis Extrem: General: Yes no pedal edema and No clubbing Objective Data Labs 04/26/24 05:59 04/26/24 05:59 Labs: Laboratory Results - last 24 hr 04/25/24 04/25/24 04/25/24 12:01 16:13 20:15 WBC RBC Hgb Hct MCV MCH MCHC RDW Plt Count MPV Absolute Nucleated RBC Nucleated RBC % (auto) Sodium Potassium Chloride Carbon Dioxide Anion Gap BUN Creatinine Estim Creat Clear Calc Estimated GFR POC Glucose 157 H 246 H 268 H Random Glucose Calcium 04/26/24 04/26/24 05:59 07:39 WBC 10.0 RBC 2.53 L Hgb 7.6 L Hct 21.2 L MCV 83.8 MCH 30.0 MCHC 35.8 RDW 15.7 Plt Count 166 MPV 10.0 Absolute Nucleated RBC 0.000 Nucleated RBC % (auto) 0.0 Sodium 139 Potassium 3.4 Chloride 107 Carbon Dioxide 20 L Anion Gap 15 BUN 40 H Creatinine 4.33 H* Estim Creat Clear Calc 15.3 Estimated GFR 14 POC Glucose 135 H Random Glucose 135 H Calcium 8.6 Microbiology Microbiology Results: Microbiology 04/20/24 02:51 Blood - Venous Blood Culture - Final No growth after 5 days. 04/20/24 02:50 Blood - Venous Blood Culture - Final No growth after 5 days. 04/18/24 17:06 Blood - Venous Blood Culture - Final No growth after 5 days. 04/18/24 17:06 Blood - Venous Blood Culture - Final Coag negative Staphylococcus Procedures Date of Service Date of Service: 04/26/24 Assessment & Plan Assessment and plan (1) Acute kidney injury superimposed on chronic kidney disease: Status: Acute (2) Acute on chronic anemia: Status: Resolved Plan Middle-aged man with acute kidney injury superimposed on CKD. Biopsy showed evidence of TMA in the past Baseline creatinine is around 2.5 mg/dL. He sustained superimposed KWAME due to hypoperfusion. Has progressed to ATN. Status post dialysis on 04/22/2024. Currently urine output is improving. will hold dialysis with the next 24-48 hours and reassess renal function. No overt signs or symptoms of uremia. Optimize hemoglobin s/p erythropoietin Time Spent With Patient Time: Total time managing care of this patient today ____ minutes. Progress Note: Quality Stroke Does the patient have a stroke diagnosis?: No
[2024-04-26 11:27] LABS: Glucose, Whole Blood 192 mg/dL (60-115)
[2024-04-26 11:37] LABS: Alanine Aminotransferase 53 U/L (0-40); Albumin Level 3.1 g/dL (3.5-5.0); Alkaline Phosphatase 741 U/L (39-117); Aspartate Amino Transferase 47 U/L (5-37); Bilirubin Direct 2.4 mg/dL (0.0-0.5); Bilirubin Total 3.1 mg/dL (0.0-1.0)
[2024-04-26] MEDS: hydrALAZINE HCl 50 MG TABLET 150 MG PO ×2 (12:02→20:10)
[2024-04-26 16:28] LABS: Glucose, Whole Blood 346 mg/dL (60-115)
[2024-04-26] MEDS: Insulin Lispro 100 UNIT/ML 3 ML VIAL SUBCUT ×2 (16:39→22:00)
[2024-04-26 21:48] LABS: Glucose, Whole Blood 268 mg/dL (60-115)
[2024-04-27] VITALS (8 sets, daily range): BP systolic 148–160; BP diastolic 68–72; PULSE 74–83; RESP 16–20; TEMP 36.3–37.7; O2SAT 92–99
--- NOTE | 2024-04-27 01:37 | PC.NURSE ---
message sent to on-call surgeon in regards to no output to ELAINA drain, large amount drainage noted to pads and dressing reinforced x 2 due to drainage. pt denies c/o pain.
[2024-04-27] MEDS: Piperacillin Sodium/Tazobactam 4.5 GM in 0.9 % Sodium Chloride 100 ML IV ×2 (06:03→16:52)
[2024-04-27] MEDS: Omeprazole 20 MG CAPSULE.DR PO (06:03)
[2024-04-27 07:01] LABS: Glucose, Whole Blood 221 mg/dL (60-115)
[2024-04-27] MEDS: carvediloL 6.25 MG TABLET PO ×2 (07:38→20:21)
[2024-04-27] MEDS: Docusate Sodium 100 MG CAPSULE PO ×2 (07:38→20:20)
[2024-04-27] MEDS: hydrALAZINE HCl 50 MG TABLET 150 MG PO ×2 (07:39→20:21)
[2024-04-27] MEDS: Sodium Bicarbonate 650 MG TABLET PO ×4 (07:39→20:22)
[2024-04-27] MEDS: Tamsulosin HCL 0.4 MG CAPSULE PO (07:39)
[2024-04-27] MEDS: 0.9 % Sodium Chloride Flush 3 ML SYRINGE IVFLUSH ×3 (07:40→20:22)
[2024-04-27] MEDS: Insulin Lispro 100 UNIT/ML 3 ML VIAL SUBCUT ×4 (07:41→20:22)
[2024-04-27] MEDS: amLODIPine Besylate 10 MG TABLET PO (07:42)
--- NOTE | 2024-04-27 08:28 | P.PNGS_ITS ---
Subjective Subjective Date of Service: 04/27/24 Interval history: Patient reports feeling improved with decreased abdominal pain. He was able to tolerate his diet without nausea or vomiting. Physical Exam 2 Vital Signs: Vital Signs: Last Vital Signs Temp 97.6 F 04/27/24 07:01 Pulse 74 04/27/24 07:01 Resp 20 04/27/24 07:01 BP 151/68 H 04/27/24 07:01 Pulse Ox 99 04/27/24 07:01 O2 Del Method Room Air 04/27/24 07:01 O2 Flow Rate 2 04/24/24 11:20 BMI result Body Mass Index 23.4 Const: General: comfortable Nutritional Appearance: well nourished O rientation/consciousness: patient oriented x3 Resp: Effort & Inspection: normal respiratory effort GI: Other: Soft and nondistended, incisions clean, dry and intact. ELAINA site leaking serosanguineous fluid around the tube. ELAINA bulb with mainly serous fluid. No bile appreciated. Skin: Other: Warm, dry, no rash Neuro: General: patient oriented x3 Objective Data Active Medications Amlodipine Besylate (Amlodipine Besylate 10 Mg Tablet) 10 mg PO DAILY [facility]; Protocol Last Admin: 04/27/24 07:42 Dose: 10 mg Documented By: SOURAV Benztropine Mesylate (Benztropine Mesylate 0.5 Mg Tablet) 0.5 mg PO DAILY [facility] Last Admin: 04/23/24 08:32 Dose: 0.5 mg Documented By: WAQAS Bisacodyl (Bisacodyl 5 Mg Tablet.) 10 mg PO DAILY [facility] Last Admin: 04/23/24 08:32 Dose: 10 mg Documented By: WAQAS Calcium Carbonate (Calcium Oyster Shell Elemental 500 Mg Tablet) 500 mg PO DAILY [facility] Carvedilol (Carvedilol 6.25 Mg Tablet) 6.25 mg PO BID [facility]; Protocol Last Admin: 04/27/24 07:38 Dose: 6.25 mg Documented By: SOURAV Docusate Sodium (Docusate Sodium 100 Mg Capsule) 100 mg PO BID [facility] Last Admin: 04/27/24 07:38 Dose: 100 mg Documented By: SOURAV Ferrous Sulfate (Ferrous Sulfate 324 Mg Tablet.) 324 mg PO DAILY [facility] Last Admin: 04/23/24 08:31 Dose: 324 mg Documented By: WAQAS Gabapentin (Gabapentin 100 Mg Capsule) 100 mg PO BID [facility] Last Admin: 04/22/24 08:07 Dose: 100 mg Documented By: TAWANA Glucose (Glucose Gel 15 Gm Gel..Gram.) 15 gm PO Q15M PRN; Protocol PRN Reason: per Hypoglycemia Standing Ord. Hydralazine HCl (Hydralazine Hcl 50 Mg Tablet) 150 mg PO BID [facility]; Protocol Last Admin: 04/27/24 07:39 Dose: 150 mg Documented By: SOURAV Piperacillin Sod/Tazobactam (Sod 4.5 gm/ Sodium Chloride) 100 mls @ 200 mls/hr IV Q12H [facility] Last Infusion: 04/27/24 07:30 Dose: Infused Documented By: NAEL Dextrose (D10) 250 mls @ 750 mls/hr IV Q15M PRN; Protocol PRN Reason: per Hypoglycemia Standing Ord. Last Infusion: 04/24/24 07:47 Dose: Infused Documented By: WAQAS Insulin Glargine (Insulin Glargine,Hum.Rec.Anlog 100 Unit/Ml 10 Ml Vial) 10 unit SUBCUT DAILY [facility] Last Admin: 04/23/24 08:33 Dose: 10 unit Documented By: WAQAS Insulin Human Lispro (Insulin Lispro 100 Unit/Ml 3 Ml Vial) 0 unit SUBCUT QIDACHS [facility]; Protocol Last Admin: 04/27/24 07:41 Dose: 2 unit Documented By: SOURAV Magnesium Hydroxide (Milk Of Magnesia 30 Ml Oral.Susp) 30 ml PO DAILY PRN PRN Reason: Constipation Omeprazole (Omeprazole 20 Mg Capsule.Dr) 20 mg PO DAILY@0630 [facility] Last Admin: 04/27/24 06:03 Dose: 20 mg Documented By: NAEL Ondansetron HCl (Ondansetron Hcl 4 Mg/2 Ml Vial) 4 mg IVPUSH Q8H PRN PRN Reason: Nausea and Vomiting Last Admin: 04/23/24 06:24 Dose: 4 mg Documented By: FAITH Sodium Bicarbonate (Sodium Bicarbonate 650 Mg Tablet) 650 mg PO QID [facility] Last Admin: 04/27/24 07:39 Dose: 650 mg Documented By: SOURAV Sodium Chloride (0.9 % Sodium Chloride Flush 3 Ml Syringe) 3 ml IVFLUSH QSHIFT [facility] Last Admin: 04/27/24 07:40 Dose: 3 ml Documented By: SOURAV Tamsulosin HCl (Tamsulosin Hcl 0.4 Mg Capsule) 0.4 mg PO DAILY [facility] Last Admin: 04/27/24 07:39 Dose: 0.4 mg Documented By: SOURAV Trazodone HCl (Trazodone Hcl 50 Mg Tablet) 50 mg PO BEDTIME MRX1 PRN PRN Reason: Insomnia Last Admin: 04/18/24 21:01 Dose: 50 mg Documented By: JASMINA Ziprasidone (Ziprasidone 60 Mg Capsule) 60 mg PO BID [facility] Last Admin: 04/22/24 08:07 Dose: 60 mg Documented By: TAWANA Labs 04/26/24 05:59 04/26/24 05:59 Labs: Laboratory Results - last 24 hr 04/26/24 04/26/24 04/26/24 05:59 11:21 16:21 POC Glucose 192 H 346 H Total Bilirubin 3.1 H Direct Bilirubin 2.4 H AST 47 H ALT 53 H Alkaline Phosphatase 741 H Total Protein 6.0 L Albumin 3.1 L 04/26/24 04/27/24 21:38 06:58 POC Glucose 268 H 221 H Total Bilirubin Direct Bilirubin AST ALT Alkaline Phosphatase Total Protein Albumin Procedures Date of Service Date of Service: 04/27/24 Progress Note: A&P Assessment and plan (1) Acute cholecystitis: Status: Acute (2) Obstructive jaundice: Status: Acute Plan 58-year-old male patient status post laparoscopic cholecystectomy, pod 7. ELAINA drain was removed today and dry sterile dressings applied. Dressings may be changed as needed. Patient should follow up in office in approximately 1 week for staple removal. He should remain on a low-fat diet for 1 month. Time Spent With Patient Time: Total time managing care of this patient today ____ minutes. Quality Stroke Does the patient have a stroke diagnosis?: No VTE Prior VTE?: No VTE Risk Level:: Medical - moderate - high VTE Device Contraindication: Treatment Not Indicated VTE Drug Contraindication: N/A - Med Ordered
--- NOTE | 2024-04-27 10:08 | P.PNIM_ITS ---
Subjective Subjective Date of Service: 04/27/24 Interval History: f/u renal failure needing dialysis s/p CCY complicated by ? bile leak, encephalopathy now resolved. continue to improve, no fever, tolerating regular diet and has not required further dialysis Physical Exam 2 Vital Signs: Vital Signs: Last Vital Signs Temp 97.6 F 04/27/24 07:01 Pulse 74 04/27/24 07:01 Resp 20 04/27/24 07:01 BP 151/68 H 04/27/24 07:01 Pulse Ox 99 04/27/24 07:01 O2 Del Method Room Air 04/27/24 07:01 O2 Flow Rate 2 04/24/24 11:20 BMI result Body Mass Index 23.4 General: AO X 3, no acute distress Resp: CTA bilateral CVS: S1,S2,RRR GI: +BS, NT, no distention, Ihsan drain in place serosanguinous drainage Skin: No rash Neuro: motor grossly intact Psych: appropriate affect Objective Data Active Medications Amlodipine Besylate (Amlodipine Besylate 10 Mg Tablet) 10 mg PO DAILY [facility]; Protocol Last Admin: 04/27/24 07:42 Dose: 10 mg Documented By: SOURAV Benztropine Mesylate (Benztropine Mesylate 0.5 Mg Tablet) 0.5 mg PO DAILY [facility] Last Admin: 04/23/24 08:32 Dose: 0.5 mg Documented By: WAQAS Bisacodyl (Bisacodyl 5 Mg Tablet.) 10 mg PO DAILY [facility] Last Admin: 04/23/24 08:32 Dose: 10 mg Documented By: WAQAS Calcium Carbonate (Calcium Oyster Shell Elemental 500 Mg Tablet) 500 mg PO DAILY [facility] Carvedilol (Carvedilol 6.25 Mg Tablet) 6.25 mg PO BID [facility]; Protocol Last Admin: 04/27/24 07:38 Dose: 6.25 mg Documented By: SOURAV Docusate Sodium (Docusate Sodium 100 Mg Capsule) 100 mg PO BID [facility] Last Admin: 04/27/24 07:38 Dose: 100 mg Documented By: SOURAV Ferrous Sulfate (Ferrous Sulfate 324 Mg Tablet.) 324 mg PO DAILY [facility] Last Admin: 04/23/24 08:31 Dose: 324 mg Documented By: WAQAS Gabapentin (Gabapentin 100 Mg Capsule) 100 mg PO BID [facility] Last Admin: 04/22/24 08:07 Dose: 100 mg Documented By: TAWANA Glucose (Glucose Gel 15 Gm Gel..Gram.) 15 gm PO Q15M PRN; Protocol PRN Reason: per Hypoglycemia Standing Ord. Hydralazine HCl (Hydralazine Hcl 50 Mg Tablet) 150 mg PO BID [facility]; Protocol Last Admin: 04/27/24 07:39 Dose: 150 mg Documented By: SOURAV Piperacillin Sod/Tazobactam (Sod 4.5 gm/ Sodium Chloride) 100 mls @ 200 mls/hr IV Q12H [facility] Last Infusion: 04/27/24 07:30 Dose: Infused Documented By: NAEL Dextrose (D10) 250 mls @ 750 mls/hr IV Q15M PRN; Protocol PRN Reason: per Hypoglycemia Standing Ord. Last Infusion: 04/24/24 07:47 Dose: Infused Documented By: WAQAS Insulin Glargine (Insulin Glargine,Hum.Rec.Anlog 100 Unit/Ml 10 Ml Vial) 10 unit SUBCUT DAILY [facility] Last Admin: 04/23/24 08:33 Dose: 10 unit Documented By: WAQAS Insulin Human Lispro (Insulin Lispro 100 Unit/Ml 3 Ml Vial) 0 unit SUBCUT QIDACHS [facility]; Protocol Last Admin: 04/27/24 07:41 Dose: 2 unit Documented By: SOURAV Magnesium Hydroxide (Milk Of Magnesia 30 Ml Oral.Susp) 30 ml PO DAILY PRN PRN Reason: Constipation Omeprazole (Omeprazole 20 Mg Capsule.) 20 mg PO DAILY@0630 [facility] Last Admin: 04/27/24 06:03 Dose: 20 mg Documented By: NAEL Ondansetron HCl (Ondansetron Hcl 4 Mg/2 Ml Vial) 4 mg IVPUSH Q8H PRN PRN Reason: Nausea and Vomiting Last Admin: 04/23/24 06:24 Dose: 4 mg Documented By: FAITH Sodium Bicarbonate (Sodium Bicarbonate 650 Mg Tablet) 650 mg PO QID [facility] Last Admin: 04/27/24 07:39 Dose: 650 mg Documented By: SOURAV Sodium Chloride (0.9 % Sodium Chloride Flush 3 Ml Syringe) 3 [facility] Last Admin: 04/27/24 07:40 Dose: 3 ml Documented By: SOURAV Tamsulosin HCl (Tamsulosin Hcl 0.4 Mg Capsule) 0.4 mg PO DAILY [facility] Last Admin: 04/27/24 07:39 Dose: 0.4 mg Documented By: SOURAV Trazodone HCl (Trazodone Hcl 50 Mg Tablet) 50 mg PO BEDTIME MRX1 PRN PRN Reason: Insomnia Last Admin: 04/18/24 21:01 Dose: 50 mg Documented By: JASMINA Ziprasidone (Ziprasidone 60 Mg Capsule) 60 mg PO BID [facility] Last Admin: 04/22/24 08:07 Dose: 60 mg Documented By: TAWANA Labs 04/26/24 05:59 04/26/24 05:59 Labs: Laboratory Results - last 24 hr 04/26/24 04/26/24 04/26/24 05:59 11:21 16:21 POC Glucose 192 H 346 H Total Bilirubin 3.1 H Direct Bilirubin 2.4 H AST 47 H ALT 53 H Alkaline Phosphatase 741 H Total Protein 6.0 L Albumin 3.1 L 04/26/24 04/27/24 21:38 06:58 POC Glucose 268 H 221 H Total Bilirubin Direct Bilirubin AST ALT Alkaline Phosphatase Total Protein Albumin Assessment and Plan (1) Acute cholecystitis: Status: Acute (2) Obstructive jaundice: Status: Acute (3) Anemia due to chronic kidney disease: Status: Acute (4) CKD (chronic kidney disease): Status: Acute Assessment and Plan: 57 year old male with chronic normocytic anemia, htn, hld, diabetic polyneuropathy, diabetic nephropathy, chronic pain syndrome, insulin dependent type 2 diabetes, cocaine abuse, nephrotic syndrome, CKD stage 4, diastolic heart failure, and depression admitted for further management of acute cholecystitis/choledocholithiasis with obstructive jaundice. s/p CCY with post op concern for obstructive jaundice- LFTS trending down MRCP 04/24: no CBC stone, no definative biliary obstruction, possible small collection HIDA scan 04/25, no bile leak further management per surgery Toxic metabolic encephalopathy--likely multifactorial uremia, above, minimize pain and sedative--resolved Hyponatremia--resolved. mild hypocalcemia chronic - and stable Diabetes, FBS > 200, continue lantus at increased dose of 15 units, SSI KWAME/CKD reuired bried HD, Cr stable. holding further dialysis and to remove catheter HFpEF--no exacerbation HTN: continue coreg, norvasc and hydralazine Cocaine abuse-cocaine positive --advised on cessation Anemia of chronic disease with acute anemia, s/p 2 units on 530 H/H stable, transfuse if hgb < 7 DVT prophylaxis- mech devices due to anemia requiring transfusion. Full code Pt requires inpt need to stay: ongoing management of acute cholecystitis, complicaed by renal failure needing dialysis. leticia greco dc [employer] Stroke Does the patient have a stroke diagnosis?: No VTE Prior VTE?: No VTE Risk Level:: Medical - moderate - high VTE Device Contraindication: Treatment Not Indicated VTE Drug Contraindication: N/A - Med Ordered
--- NOTE | 2024-04-27 10:26 | MHC.CM.PN ---
Per ROUNDS discussion, Patient may be medically cleared for dc today. New HD has been discontinued and PT is recommending home/with services. CM will follow.
[2024-04-27 10:48] LABS: Anion Gap 15 (12-20); Blood Urea Nitrogen 41 mg/dL (9-16); Calcium 8.4 mg/dL (8.4-10.2); Carbon Dioxide 20 mmol/L (22-29); Chloride 104 mmol/L (96-108); Estimated Glomerular Filt Rate 13; Glucose Random 255 mg/dL (60-115); Potassium 3.7 mmol/L (3.3-5.1); Sodium 135 mmol/L (135-145)
--- NOTE | 2024-04-27 10:51 | PC.NURSE ---
greco cath removed now , 150 ml urine output
[2024-04-27] MEDS: Insulin Glargine,Hum.rec.anlog 100 UNIT/ML 10 ML VIAL SUBCUT (10:54)
[2024-04-27 11:31] LABS: Glucose, Whole Blood 263 mg/dL (60-115)
[2024-04-27 15:59] LABS: Glucose, Whole Blood 261 mg/dL (60-115)
--- NOTE | 2024-04-27 18:45 | P.PNNP_ITS ---
Subjective Subjective Date of Service: 04/27/24 Interval history: continue to improve, no fever, tolerating regular diet and has not required further dialysis; all recent data reviewed Physical Exam 2 Vital Signs: Vital Signs: Last Vital Signs Temp 98.0 F 04/27/24 15:21 Pulse 82 04/27/24 15:21 Resp 18 04/27/24 15:21 BP 152/72 H 04/27/24 15:21 Pulse Ox 98 04/27/24 15:21 O2 Del Method Room Air 04/27/24 15:21 O2 Flow Rate 2 04/24/24 11:20 BMI result Body Mass Index 23.4 Const: General: no acute distress Orientation/consciousness: patient oriented x3 Eyes: EOM: EOMs intact bilaterally Resp: Auscultation: diminished lung sounds Cardio: Rate: regular rate GI: Palpation (GI): Soft to palpation Neuro: General: patient oriented x3 Objective Data Labs 04/26/24 05:59 04/27/24 10:15 Labs: Laboratory Results - last 24 hr 04/26/24 04/27/24 04/27/24 21:38 06:58 10:15 Sodium 135 Potassium 3.7 Chloride 104 Carbon Dioxide 20 L Anion Gap 15 BUN 41 H Creatinine 4.74 H* Estim Creat Clear Calc 14.0 Estimated GFR 13 POC Glucose 268 H 221 H Random Glucose 255 H Calcium 8.4 04/27/24 04/27/24 11:27 15:54 Sodium Potassium Chloride Carbon Dioxide Anion Gap BUN Creatinine Estim Creat Clear Calc Estimated GFR POC Glucose 263 H 261 H Random Glucose Calcium Microbiology Microbiology Results: Microbiology 04/20/24 02:51 Blood - Venous Blood Culture - Final No growth after 5 days. 04/20/24 02:50 Blood - Venous Blood Culture - Final No growth after 5 days. 04/18/24 17:06 Blood - Venous Blood Culture - Final No growth after 5 days. 04/18/24 17:06 Blood - Venous Blood Culture - Final Coag negative Staphylococcus Procedures Date of Service Date of Service: 04/27/24 Assessment & Plan Assessment and plan (1) Acute kidney injury superimposed on chronic kidney disease: Status: Acute Plan Biopsy showed evidence of TMA in the past Baseline creatinine had been around 2.5 mg/dL. KWAME on CKD due to tubular injury Status post dialysis on 04/22/2024. Currently urine output is improving. Shall continue to hold dialysis for now-D/C HD catheter Labs AM; C/W rest of current management Progress Note: Quality Stroke Does the patient have a stroke diagnosis?: No
[2024-04-27 19:54] LABS: Glucose, Whole Blood 201 mg/dL (60-115)
[2024-04-28] VITALS (9 sets, daily range): BP systolic 158–175; BP diastolic 72–83; PULSE 71–78; RESP 12–16; TEMP 36.1–36.6; O2SAT 96–98
[2024-04-28] MEDS: Omeprazole 20 MG CAPSULE.DR PO (05:34)
[2024-04-28] MEDS: Piperacillin Sodium/Tazobactam 4.5 GM in 0.9 % Sodium Chloride 100 ML IV (05:43)
[2024-04-28 07:59] LABS: Glucose, Whole Blood 159 mg/dL (60-115)
[2024-04-28] MEDS: Insulin Glargine,Hum.rec.anlog 100 UNIT/ML 10 ML VIAL 15 UNIT SUBCUT (08:23)
[2024-04-28] MEDS: Docusate Sodium 100 MG CAPSULE PO ×2 (08:24→21:16)
[2024-04-28] MEDS: Sodium Bicarbonate 650 MG TABLET PO ×4 (08:24→21:16)
[2024-04-28] MEDS: hydrALAZINE HCl 50 MG TABLET 150 MG PO ×2 (08:24→21:17)
[2024-04-28] MEDS: carvediloL 6.25 MG TABLET PO ×2 (08:24→21:17)
[2024-04-28] MEDS: amLODIPine Besylate 10 MG TABLET PO (08:24)
[2024-04-28] MEDS: 0.9 % Sodium Chloride Flush 3 ML SYRINGE IVFLUSH ×2 (08:25→20:14)
[2024-04-28] MEDS: Tamsulosin HCL 0.4 MG CAPSULE PO (08:27)
--- NOTE | 2024-04-28 08:57 | P.PNIM_ITS ---
Subjective Subjective Date of Service: 04/28/24 Interval History: f/u renal failure needing dialysis s/p CCY complicated by ? bile leak, encephalopathy now resolved. Overall doing well, makging good recovery Physical Exam 2 Vital Signs: Vital Signs: Last Vital Signs Temp 98 F 04/28/24 08:00 Pulse 71 04/28/24 08:24 Resp 12 04/28/24 08:00 BP 175/74 H 04/28/24 08:24 Pulse Ox 98 04/28/24 08:00 O2 Del Method Room Air 04/28/24 08:00 O2 Flow Rate 2 04/24/24 11:20 BMI result Body Mass Index 23.4 Objective Data Active Medications Amlodipine Besylate (Amlodipine Besylate 10 Mg Tablet) 10 mg PO DAILY [facility]; Protocol Last Admin: 04/28/24 08:24 Dose: 10 mg Documented By: BRAD Benztropine Mesylate (Benztropine Mesylate 0.5 Mg Tablet) 0.5 mg PO DAILY [facility] Last Admin: 04/23/24 08:32 Dose: 0.5 mg Documented By: WAQAS Bisacodyl (Bisacodyl 5 Mg Tablet.) 10 mg PO DAILY [facility] Last Admin: 04/23/24 08:32 Dose: 10 mg Documented By: WAQAS Calcium Carbonate (Calcium Oyster Shell Elemental 500 Mg Tablet) 500 mg PO DAILY [facility] Carvedilol (Carvedilol 6.25 Mg Tablet) 6.25 mg PO BID [facility]; Protocol Last Admin: 04/28/24 08:24 Dose: 6.25 mg Documented By: BRAD Docusate Sodium (Docusate Sodium 100 Mg Capsule) 100 mg PO BID [facility] Last Admin: 04/28/24 08:24 Dose: 100 mg Documented By: BRAD Ferrous Sulfate (Ferrous Sulfate 324 Mg Tablet.) 324 mg PO DAILY [facility] Last Admin: 04/23/24 08:31 Dose: 324 mg Documented By: WAQAS Gabapentin (Gabapentin 100 Mg Capsule) 100 mg PO BID [facility] Last Admin: 04/22/24 08:07 Dose: 100 mg Documented By: TAWANA Glucose (Glucose Gel 15 Gm Gel..Gram.) 15 gm PO Q15M PRN; Protocol PRN Reason: per Hypoglycemia Standing Ord. Hydralazine HCl (Hydralazine Hcl 50 Mg Tablet) 150 mg PO BID [facility]; Protocol Last Admin: 04/28/24 08:24 Dose: 150 mg Documented By: BRAD Piperacillin Sod/Tazobactam (Sod 4.5 gm/ Sodium Chloride) 100 mls @ 200 mls/hr IV Q12H [facility] Last Infusion: 04/28/24 06:15 Dose: Infused Documented By: TALON Dextrose (D10) 250 mls @ 750 mls/hr IV Q15M PRN; Protocol PRN Reason: per Hypoglycemia Standing Ord. Last Infusion: 04/24/24 07:47 Dose: Infused Documented By: WAQAS Insulin Glargine (Insulin Glargine,Hum.Rec.Anlog 100 Unit/Ml 10 Ml Vial) 15 unit SUBCUT DAILY [facility] Last Admin: 04/28/24 08:23 Dose: 15 unit Documented By: BRAD Insulin Human Lispro (Insulin Lispro 100 Unit/Ml 3 Ml Vial) 0 unit SUBCUT QIDACHS [facility]; Protocol Last Admin: 04/28/24 08:01 Dose: Not Given Documented By: BRAD Non-Admin Reason: No Insulin Coverage Magnesium Hydroxide (Milk Of Magnesia 30 Ml Oral.Susp) 30 ml PO DAILY PRN PRN Reason: Constipation Omeprazole (Omeprazole 20 Mg Capsule.Dr) 20 mg PO DAILY@0630 [facility] Last Admin: 04/28/24 05:34 Dose: 20 mg Documented By: TALON Ondansetron HCl (Ondansetron Hcl 4 Mg/2 Ml Vial) 4 mg IVPUSH Q8H PRN PRN Reason: Nausea and Vomiting Last Admin: 04/23/24 06:24 Dose: 4 mg Documented By: FAITH Sodium Bicarbonate (Sodium Bicarbonate 650 Mg Tablet) 650 mg PO QID [facility] Last Admin: 04/28/24 08:24 Dose: 650 mg Documented By: BRAD Sodium Chloride (0.9 % Sodium Chloride Flush 3 Ml Syringe) 3 ml IVFLUSH QSHIFT [facility] Last Admin: 04/28/24 08:25 Dose: 3 ml Documented By: BRAD Tamsulosin HCl (Tamsulosin Hcl 0.4 Mg Capsule) 0.4 mg PO DAILY [facility] Last Admin: 04/27/24 07:39 Dose: 0.4 mg Documented By: SOURAV Trazodone HCl (Trazodone Hcl 50 Mg Tablet) 50 mg PO BEDTIME MRX1 PRN PRN Reason: Insomnia Last Admin: 04/18/24 21:01 Dose: 50 mg Documented By: JASMINA Ziprasidone (Ziprasidone 60 Mg Capsule) 60 mg PO BID [facility] Last Admin: 04/22/24 08:07 Dose: 60 mg Documented By: TAWANA Labs 04/26/24 05:59 04/27/24 10:15 Labs: Laboratory Results - last 24 hr 04/27/24 04/27/24 04/27/24 10:15 11:27 15:54 Anion Gap 15 Estim Creat Clear Calc 14.0 Estimated GFR 13 POC Glucose 263 H 261 H Random Glucose 255 H Calcium 8.4 04/27/24 04/28/24 19:45 07:47 Anion Gap Estim Creat Clear Calc Estimated GFR POC Glucose 201 H 159 H Random Glucose Calcium Assessment and Plan (1) Acute cholecystitis: Status: Acute (2) Obstructive jaundice: Status: Acute (3) Anemia due to chronic kidney disease: Status: Acute (4) CKD (chronic kidney disease): Status: Acute Assessment and Plan: 57 year old male with chronic normocytic anemia, htn, hld, diabetic polyneuropathy, diabetic nephropathy, chronic pain syndrome, insulin dependent type 2 diabetes, cocaine abuse, nephrotic syndrome, CKD stage 4, diastolic heart failure, and depression admitted for further management of acute cholecystitis/choledocholithiasis with obstructive jaundice. s/p CCY with post op concern for obstructive jaundice- LFTS trending down MRCP 04/24: no CBC stone, no definative biliary obstruction, possible small collection HIDA scan 04/25, no bile leak further management per surgery Change Zosyn to Augmentinn for 5 more day regular diet Toxic metabolic encephalopathy--likely multifactorial uremia, above, minimize pain and sedative--resolved Hyponatremia--resolved. mild hypocalcemia chronic - and stable Diabetes, FBS > 200, continue lantus at increased dose of 15 units, SSI KWAME/CKD reuired bried HD, Cr stable. holding further dialysis and to remove catheter HFpEF--no exacerbation HTN: continue coreg, norvasc and hydralazine Cocaine abuse-cocaine positive --advised on cessation Anemia of chronic disease with acute anemia, s/p 2 units on 5/30 H/H stable, transfuse if hgb < 7 DVT prophylaxis- mech devices due to anemia requiring transfusion. Full code Pt requires inpt need to stay: ongoing management of acute cholecystitis, complicaed by renal failure needing dialysis. likely dc on tuesday Quality Stroke Does the patient have a stroke diagnosis?: No VTE Prior VTE?: No VTE Risk Level:: Medical - moderate - high VTE Device Contraindication: Treatment Not Indicated VTE Drug Contraindication: N/A - Med Ordered
--- NOTE | 2024-04-28 09:37 | PC.NURSE ---
Attempt IV Placement x 2, unable, Primary RN notified.
[2024-04-28 11:34] LABS: Glucose, Whole Blood 202 mg/dL (60-115)
[2024-04-28] MEDS: Insulin Lispro 100 UNIT/ML 3 ML VIAL SUBCUT (11:58)
[2024-04-28 16:53] LABS: Glucose, Whole Blood 140 mg/dL (60-115)
[2024-04-28] MEDS: ondansetron HCL 4 MG/2 ML VIAL IVPUSH (20:14)
[2024-04-28 20:54] LABS: Glucose, Whole Blood 195 mg/dL (60-115)
[2024-04-28] MEDS: Magnesium Hydrox/Alum Hydrox 30 ML ORAL.SUSP PO (21:15)
[2024-04-28] MEDS: Amoxicillin/Potassium Clav 875 MG TABLET PO (21:16)
[2024-04-29 03:24] VITALS: BP 163/71; PULSE 77; RESP 16; TEMP 36.1; O2SAT 98
[2024-04-29] MEDS: Omeprazole 20 MG CAPSULE.DR PO (05:50)
[2024-04-29 07:38] VITALS: BP 165/72; PULSE 75; RESP 16; TEMP 36.1; O2SAT 97
[2024-04-29 08:35] LABS: Glucose, Whole Blood 146 mg/dL (60-115)
--- NOTE | 2024-04-29 08:36 | P.PNIM_ITS ---
Subjective Subjective Date of Service: 04/29/24 Interval History: f/u renal failure needing dialysis s/p CCY complicated by ? bile leak, encephalopathy now resolved. Overall doing well, makging good recovery, temp dialysis catheter removed yesterday Physical Exam 2 Vital Signs: Vital Signs: Last Vital Signs Temp 97 F 04/29/24 07:38 Pulse 75 04/29/24 07:38 Resp 16 04/29/24 07:38 BP 165/72 H 04/29/24 07:38 Pulse Ox 97 04/29/24 07:38 O2 Del Method Room Air 04/29/24 07:38 O2 Flow Rate 2 04/24/24 11:20 BMI result Body Mass Index 23.4 General: AO X 3, no acute distress Resp: CTA bilateral CVS: S1,S2,RRR GI: +BS, NT, no distention, surgical site dressing intact, with mild leak Skin: No rash Neuro: motor grossly intact Psych: appropriate affect Objective Data Active Medications Amlodipine Besylate (Amlodipine Besylate 10 Mg Tablet) 10 mg PO DAILY [facility]; Protocol Last Admin: 04/28/24 08:24 Dose: 10 mg Documented By: BRAD Amoxicillin/Clavulanate Potassium (Amoxicillin/Potassium Clav 875 Mg Tablet) 875 mg PO BID [facility] Last Admin: 04/28/24 21:16 Dose: 875 mg Documented By: TALON Benztropine Mesylate (Benztropine Mesylate 0.5 Mg Tablet) 0.5 mg PO DAILY [facility] Last Admin: 04/23/24 08:32 Dose: 0.5 mg Documented By: WAQAS Bisacodyl (Bisacodyl 5 Mg Tablet.) 10 mg PO DAILY [facility] Last Admin: 04/23/24 08:32 Dose: 10 mg Documented By: WAQAS Calcium Carbonate (Calcium Oyster Shell Elemental 500 Mg Tablet) 500 mg PO DAILY [facility] Carvedilol (Carvedilol 6.25 Mg Tablet) 6.25 mg PO BID [facility]; Protocol Last Admin: 04/28/24 21:17 Dose: 6.25 mg Documented By: TALON Docusate Sodium (Docusate Sodium 100 Mg Capsule) 100 mg PO BID [facility] Last Admin: 04/28/24 21:16 Dose: 100 mg Documented By: TALON Ferrous Sulfate (Ferrous Sulfate 324 Mg Tablet.) 324 mg PO DAILY [facility] Last Admin: 04/23/24 08:31 Dose: 324 mg Documented By: WAQAS Gabapentin (Gabapentin 100 Mg Capsule) 100 mg PO BID [facility] Last Admin: 04/22/24 08:07 Dose: 100 mg Documented By: TAWANA Glucose (Glucose Gel 15 Gm Gel..Gram.) 15 gm PO Q15M PRN; Protocol PRN Reason: per Hypoglycemia Standing Ord. Hydralazine HCl (Hydralazine Hcl 50 Mg Tablet) 150 mg PO BID [facility]; Protocol Last Admin: 04/28/24 21:17 Dose: 150 mg Documented By: TALON Dextrose (D10) 250 mls @ 750 mls/hr IV Q15M PRN; Protocol PRN Reason: per Hypoglycemia Standing Ord. Last Infusion: 04/24/24 07:47 Dose: Infused Documented By: WAQAS Insulin Glargine (Insulin Glargine,Hum.Rec.Anlog 100 Unit/Ml 10 Ml Vial) 15 unit SUBCUT DAILY [facility] Last Admin: 04/28/24 08:23 Dose: 15 unit Documented By: BRAD Insulin Human Lispro (Insulin Lispro 100 Unit/Ml 3 Ml Vial) 0 unit SUBCUT QIDACHS [facility]; Protocol Last Admin: 04/28/24 21:31 Dose: Not Given Documented By: TALON Non-Admin Reason: No Insulin Coverage Magnesium Hydroxide (Milk Of Magnesia 30 Ml Oral.Susp) 30 ml PO DAILY PRN PRN Reason: Constipation Omeprazole (Omeprazole 20 Mg Capsule.) 20 mg PO DAILY@0630 [facility] Last Admin: 04/29/24 05:50 Dose: 20 mg Documented By: TALON Ondansetron HCl (Ondansetron Hcl 4 Mg/2 Ml Vial) 4 mg IVPUSH Q8H PRN PRN Reason: Nausea and Vomiting Last Admin: 04/28/24 20:14 Dose: 4 mg Documented By: TALON Sodium Bicarbonate (Sodium Bicarbonate 650 Mg Tablet) 650 mg PO QID [facility] Last Admin: 04/28/24 21:16 Dose: 650 mg Documented By: TALON Sodium Chloride (0.9 % Sodium Chloride Flush 3 Ml Syringe) [facility] Last Admin: 04/28/24 20:14 Dose: 3 ml Documented By: TALON Tamsulosin HCl (Tamsulosin Hcl 0.4 Mg Capsule) 0.4 mg PO DAILY [facility] Last Admin: 04/27/24 07:39 Dose: 0.4 mg Documented By: SOURAV Trazodone HCl (Trazodone Hcl 50 Mg Tablet) 50 mg PO BEDTIME MRX1 PRN PRN Reason: Insomnia Last Admin: 04/18/24 21:01 Dose: 50 mg Documented By: JASMINA Ziprasidone (Ziprasidone 60 Mg Capsule) 60 mg PO BID [facility] Last Admin: 04/22/24 08:07 Dose: 60 mg Documented By: TAWANA Labs 04/26/24 05:59 04/27/24 10:15 Labs: Laboratory Results - last 24 hr 04/28/24 04/28/24 04/28/24 11:22 16:49 20:45 POC Glucose 202 H 140 H 195 H 04/29/24 08:30 POC Glucose 146 H Assessment and Plan (1) Acute cholecystitis: Status: Acute (2) Obstructive jaundice: Status: Acute (3) Anemia due to chronic kidney disease: Status: Acute (4) CKD (chronic kidney disease): Status: Acute Assessment and Plan: 57 year old male with chronic normocytic anemia, htn, hld, diabetic polyneuropathy, diabetic nephropathy, chronic pain syndrome, insulin dependent type 2 diabetes, cocaine abuse, nephrotic syndrome, CKD stage 4, diastolic heart failure, and depression admitted for further management of acute cholecystitis/choledocholithiasis with obstructive jaundice. S/p CCY with post op concern for obstructive jaundice and bile leak which has resolved. LFTS trending down MRCP 04/24: no CBC stone, no definative biliary obstruction, possible small collection HIDA scan 04/25, no bile leak further management per surgery Changed Zosyn to Augmentinn for 5 more day, starting 04/28 regular diet Toxic metabolic encephalopathy--likely multifactorial uremia, above, minimize pain and sedative--resolved Hyponatremia--resolved. mild hypocalcemia chronic - and stable Diabetes, FBS < 200, continue lantus at increased dose of 15 units, SSI KWAME/CKD required brief HD, Cr stable. holding further dialysis and to remove catheter HFpEF--no exacerbation HTN: continue coreg, norvasc and hydralazine Cocaine abuse-cocaine positive --advised on cessation Anemia of chronic disease with acute anemia, s/p 2 units on 04/19 H/H stable, transfuse if hgb < 7 DVT prophylaxis- mech devices due to anemia requiring transfusion. Full code Pt requires inpt need to stay: ongoing management of acute cholecystitis, complicaed by renal failure needing dialysis. likely dc on tuesday Quality Stroke Does the patient have a stroke diagnosis?: No VTE Prior VTE?: No VTE Risk Level:: Medical - moderate - high VTE Device Contraindication: Treatment Not Indicated VTE Drug Contraindication: N/A - Med Ordered
[2024-04-29 08:42] VITALS: BP 165/72; PULSE 75
[2024-04-29] MEDS: hydrALAZINE HCl 50 MG TABLET 150 MG PO (08:42)
[2024-04-29] MEDS: Insulin Glargine,Hum.rec.anlog 100 UNIT/ML 10 ML VIAL 15 UNIT SUBCUT (08:42)
[2024-04-29] MEDS: Amoxicillin/Potassium Clav 875 MG TABLET PO (08:42)
[2024-04-29] MEDS: amLODIPine Besylate 10 MG TABLET PO (08:42)
[2024-04-29] MEDS: Tamsulosin HCL 0.4 MG CAPSULE PO (08:42)
[2024-04-29] MEDS: carvediloL 6.25 MG TABLET PO (08:42)
[2024-04-29] MEDS: Docusate Sodium 100 MG CAPSULE PO (08:43)
[2024-04-29] MEDS: Sodium Bicarbonate 650 MG TABLET PO (08:43)
[2024-04-29] MEDS: 0.9 % Sodium Chloride Flush 3 ML SYRINGE IVFLUSH (08:43)
--- NOTE | 2024-04-29 09:44 | MHC.CM.PN ---
Per MD patient left AMA via private transport. Will put in face to face for [facility] services. [facility] made aware of dc via [facility].
--- NOTE | 2024-04-29 14:55 | PM.DS ---
DS: Providers Provider Date of Service: 04/29/24 Date of admission: 04/18/24 17:08 Primary care physician: Allison Montilla MD Consults: 04/18/24 17:08 Consult to General [place]ine [place] [facility] [place] [facility] Reason for consultation: cholecystitis/choledocolithiasis 04/19/24 13:53 Addiction Medicine Routine Consulting Provider: Addiction [facility] Reason for consultation: drug use Has provider been notified: No 04/20/24 09:05 Consult to Nephrology Routine Consulting [place] [facility] [place] [facility] Reason for consultation: Kwame on ckd Has provider been notified: No 04/20/24 15:27 Consult to Infectious Diseases Routine Consulting Provider[place] [facility] [place] [facility] Reason for consultation: bacteremia Has provider been notified: No 04/23/24 07:23 Consult to Critical Care Routine Consulting Provider: Joaquin Florez Reason for consultation: levels of care Has provider been notified: No 04/23/24 11:09 Consult to Gastroenterology Routine Consulting Provider: Jonatan Trammell Reason for consultation: s/p open cholecystectomy, ELAINA bilious output, ?stent DS: Diagnosis Discharge Diagnosis (1) Acute cholecystitis: Status: Acute (2) Obstructive jaundice: Status: Acute (3) Anemia due to chronic kidney disease: Status: Acute (4) CKD (chronic kidney disease): Status: Acute DS: Summary Hospital Course Hospital Course: admission hpi Chief Complaint: abd pain, n/v 57 year old male with chronic normocytic anemia, htn, hld, diabetic polyneuropathy, diabetic nephropathy, chronic pain syndrome, insulin dependent type 2 diabetes, cocaine abuse, nephrotic syndrome, CKD stage 4, diastolic heart failure, and depression presented to the ED today for evaluation of severe RUQ pain with associated nausea, vomiting, and anorexia ongoing x 3 days. Denies radiation of the pain. Primarily located in RUQ but reports mild diffuse discomfort. No fevers, chills, melena, hematochezia, hematemesis, urinary symptoms, shortness of breath, cough, chest pain. He denies any ongoing substance use including cocaine. Denies alcohol use or cigarette smoking. Denies eating any bad foods. No one at home with similar symptoms. On arrival, vital signs stable however hypertensive to 173/76 on admission, likely complicated by pain. There is no leukocytosis or fevers. Renal function baseline, electrolyte levels normal except CO2 16. VBG pending. Total bilirubin 3.4, direct bilirubin pending, AST 253, ALT 405, alkaline phosphatase 755. Urinalysis with 3+ protein and glucose but otherwise unremarkable. Urine drug screen pending. Negative for COVID-19, RSV, influenza, and strep pyogenes. CT abdomen/pelvis negative for visible biliary ductal dilatation and no radiopaque choledocholithiasis. abdominal ultrasound shows normal-appearing liver and nonvisualization of the common bile duct without any intrahepatic biliary ductal dilatation. There is also cholelithiasis and findings consistent with acute cholecystitis and positive sonographic Lanza's sign but no mural edema or pericholecystic fluid. In the ED, has been given IV morphine and ondansetron. He will be admitted for further management of acute cholecystitis and choledocholithiasis with obstructive jaundice. hospital course: Clinical Summary: A 57-year-old male with a complex medical history including chronic normocytic anemia, hypertension (HTN), hyperlipidemia (HLD), diabetic polyneuropathy, diabetic nephropathy, chronic pain syndrome, insulin-dependent type 2 diabetes, cocaine abuse, nephrotic syndrome, chronic kidney disease (CKD) stage 4, diastolic heart failure, and depression was admitted for acute cholecystitis/choledocholithiasis with obstructive jaundice. Post-cholecystectomy, concerns arose regarding obstructive jaundice and bile leak, which have since resolved. Liver function tests (LFTs) are trending downward. MRCP on 04/24 showed no common bile duct (CBD) stones, no definitive biliary obstruction, with a possible small collection noted. HIDA scan on 04/25 revealed no bile leak. Further management was directed by surgery. Medication changes included transitioning from Zosyn to Augmentin for an additional five days starting on 04/28. The patient has been placed on a regular diet. Clinical complications such as toxic metabolic encephalopathy and hyponatremia have resolved. Mild chronic hypocalcemia remains stable. For diabetes management, fasting blood sugar (FBS) levels are controlled (<200), with Lantus increased to 15 units and sliding scale insulin (SSI) employed. Acute kidney injury (KWAME) and CKD necessitated brief hemodialysis (HD), with stable creatinine levels. Further dialysis has been withheld, and catheter removal is pending. Heart failure with preserved ejection fraction (HFpEF) has not exacerbated. HTN management includes continuation of coreg, Norvasc, and hydralazine. Cocaine abuse was noted with positive findings, and cessation was advised. Anemia of chronic disease with acute exacerbation required two units of blood transfusion on 04/19. Hemoglobin and hematocrit levels remain stable, with transfusion considered if hemoglobin falls below 7. Patient instead of waiting to be discharge tomorrow with service elected to leave AMA and could not be convinced otherwise, his son age 20 was with him could not convince him and was ok taken him home, antibiotic sent to pharmacy, he signed AMA form and understood he was responsible for his health, with the posibility of his condition getting worse and even the posibility of Time Attestation Discharge Coordination Time (in mins): 35 Quality: Safe Use of Opioids Does Pt have an Active Cancer Diagnosis on the Problem List?: No Quality: Stroke Does the patient have a stroke diagnosis?: No Physical Exam Vital Signs: Vital Signs: Last Vital Signs Temp 97 F 04/29/24 07:38 Pulse 75 04/29/24 08:42 Resp 16 04/29/24 07:38 BP 165/72 H 04/29/24 08:42 Pulse Ox 97 04/29/24 07:38 O2 Del Method Room Air 04/29/24 07:38 O2 Flow Rate 2 04/24/24 11:20 BMI result Body Mass Index 23.4 DS: Data Data Completed and Pending Completed studies during hospitalization [Text1]: Pending at discharge 04/20/24 14:40 Surgical [PTH] Routine Procedures Labs on day of discharge: Laboratory Results - last 24 hr 04/28/24 04/28/24 04/29/24 16:49 20:45 08:30 POC Glucose 140 H 195 H 146 H Discharge Plan Discharge Anticipated Discharge Date/Time: 04/29/24 09:36 Patient Disposition: Home, Self-Care Discharge Diagnosis: Cholecystitis Referrals: Allison Etienne MD [Primary Care Provider] - 1 Week Discharge Medications: New amoxicillin-pot clavulanate 875-125 mg Tablet 1 tab PO BID Qty: 7 0RF Continued ferrous sulfate 325 mg (65 mg iron) tablet 325 mg PO DAILY Qty: 90 1RF Trulicity 3 mg/0.5 mL pen injector 3 mg subcut WE Rx Instructions: Every Tuesday insulin glargine [Lantus Solostar U-100 Insulin] 100 unit/mL (3 mL) insulin pen 35 unit subcut DAILY Qty: 20 0RF tamsulosin 0.4 mg capsule 0.4 mg PO DAILY diphenhydramine HCl [Benadryl] 25 mg capsule 25 mg PO BEDTIME ziprasidone HCl [Geodon] 60 mg capsule 60 mg PO BID atorvastatin 80 mg tablet 80 mg PO DAILY benztropine 0.5 mg tablet 0.5 mg DAILY trazodone 50 mg tablet 50 - 100 mg PO BEDTIME PRN (Reason: Insomnia) gabapentin 100 mg capsule 100 mg PO BID insulin lispro [Humalog KwikPen Insulin] 100 unit/mL insulin pen 14 unit subcut TIDAC amlodipine 10 mg tablet 10 mg PO DAILY Qty: 30 5RF Protocol: Hold for SBP< HOLD for SBP < : 90 bumetanide 2 mg tablet 2 mg PO BID Qty: 60 5RF carvedilol 6.25 mg tablet 6.25 mg PO BID Qty: 60 5RF hydralazine 50 mg tablet 150 mg PO BID Qty: 180 5RF Protocol: Hold for SBP< HOLD for SBP < : 90 Discharge Orders: Discharge Order (Routine); Ordered 04/29/24 Ordered By: Jae Pleitez Diet: Diabetic diet Print Language: [place] Care Plan Goals: recovery from gallblader surgery Health Concerns: cholecystitis renal failure diabetes Plan of Treatment: take Augmentin as directed Take insulin lantus 20 units only follow up with your Doctorin within a week Call Dr. Robi larios for follow up You understand you are leaving against medical advise Assessment: see above Discharge Date/Time: 04/29/24 09:45
== END 2024-04-29 09:45 | disposition home or self-care (01) | DRG 414 ==
LOC: HO.ED 15:55 → HO.EDOVER 17:17 → HO.S3 19:39 → HO.IMC 04-22 16:44 → HO.S3 04-27 10:43
PROVIDERS: Internal Medicine; Internal Medicine Hypertension Specialist; Physician Assistant; Physician Assistant Medical; Student in an Organized Health Care Education/Training Program; Surgery; Admitting Provider Physician Assistant; Emergency Provider Emergency Medicine; PCP Internal Medicine; Visit Provider Internal Medicine
PROC: 0FT44ZZ Resection of Gallbladder, Percutaneous Endoscopic Approach (ICD-10-PCS; CPT 47562; principal; 2024-04-20 13:30)
DX: K80.01 Calculus of gallbladder with acute cholecystitis with obstruction (principal); G92.8 Other toxic encephalopathy; N17.0 Acute kidney failure with tubular necrosis; I13.0 Hypertensive heart and chronic kidney disease with heart failure and stage 1 through stage 4 chronic kidney disease, or unspecified chronic kidney disease; N18.4 Chronic kidney disease, stage 4 (severe); I50.32 Chronic diastolic (congestive) heart failure; E87.1 Hypo-osmolality and hyponatremia; F14.10 Cocaine abuse, uncomplicated; E11.649 Type 2 diabetes mellitus with hypoglycemia without coma; E11.42 Type 2 diabetes mellitus with diabetic polyneuropathy; E78.5 Hyperlipidemia, unspecified; Z20.822 Contact with and (suspected) exposure to COVID-19; E11.22 Type 2 diabetes mellitus with diabetic chronic kidney disease; E83.51 Hypocalcemia; D63.1 Anemia in chronic kidney disease; G89.4 Chronic pain syndrome; Z79.4 Long term (current) use of insulin; Z79.85 Long-term (current) use of injectable non-insulin antidiabetic drugs; Z79.899 Other long term (current) drug therapy
CPT/HCPCS: 0241U; 36415; 36556; 70450; 74018; 74176; 74181; 76705; 76937; 78226; 80048; 80053; 80076; 80202; 80307; 81001; 82140; 82248; 82436; 82565; 82728; 82803; 82947; 83540; 83690; 83735; 83930; 83935; 84133; 84300; 85014; 85018; 85025; 85027; 85610; 86704; 86706; 86850; 86900; 86901; 86923; 87040; 87147; 87205; 87340; 87651; 88304; 90999; 97161; 99285; A9537; C1751; C1752; C1758; C1769; C9113; J0131; J0360; J0613; J1100; J1939; J2250; J2270; J2405; J2543; J2704; J3010; J3371; J7120; P9016; P9047; Q5106

== ENCOUNTER 2024-04-18 12:55 | Outpatient (REF) | payer OTHER, SELFPAY ==
--- NOTE | ~2024-04-18 | XR_ITS ---
EXAMINATION: XR TIBIA AND FIBULA, RIGHT CLINICAL INFORMATION: Pain. COMPARISON: Multiple prior x-rays most recent February 2024 TECHNIQUE: AP and lateral views of the right tibia and fibula were obtained. FINDINGS: Mildly displaced spiral oblique fracture of the distal diaphysis of the tibia with unchanged in alignment. There is progressing callus formation noted. No additional bone abnormalities. Arterial calcification noted. XR/XR tibia fibula RT 2V IMPRESSION: Healing fracture of the distal tibia unchanged in alignment.
== END 2024-04-18 12:56 | disposition home or self-care (01) ==
LOC: HO.HOSX 12:55
PROVIDERS: Visit Provider Physician Assistant
DX: M79.661 Pain in right lower leg (principal)
CPT/HCPCS: 73590

== ENCOUNTER 2024-04-18 17:08 | Outpatient (BNV) | payer OTHER, SELFPAY | END 2024-04-23 10:30 | PROVIDERS: Admitting Provider Physician Assistant; Emergency Provider Emergency Medicine; PCP Internal Medicine; Visit Provider Physician Assistant Surgical | DX: N18.9 Chronic kidney disease, unspecified (principal) | CPT/HCPCS: 36556; 76937; 77001 ==

== ENCOUNTER → 2024-04-18 17:08 | Outpatient (BNV) | payer OTHER, SELFPAY | PROVIDERS: Admitting Provider Physician Assistant; Emergency Provider Emergency Medicine; PCP Internal Medicine; Visit Provider Physician Assistant | DX: K81.0 Acute cholecystitis (principal); K83.1 Obstruction of bile duct; N18.9 Chronic kidney disease, unspecified; D63.1 Anemia in chronic kidney disease | CPT/HCPCS: 99223; 99232; 99239; 99499 ==

== ENCOUNTER → 2024-04-18 17:08 | Outpatient (BNV) | payer OTHER, SELFPAY | PROVIDERS: Admitting Provider Physician Assistant; Emergency Provider Emergency Medicine; PCP Internal Medicine; Visit Provider Internal Medicine | DX: K81.0 Acute cholecystitis (principal); K83.1 Obstruction of bile duct | CPT/HCPCS: 99222 ==

== ENCOUNTER → 2024-04-18 17:08 | Outpatient (BNV) | payer OTHER, SELFPAY | PROVIDERS: Admitting Provider Physician Assistant; Emergency Provider Emergency Medicine; PCP Internal Medicine; Visit Provider Internal Medicine Critical Care Medicine | DX: G93.41 Metabolic encephalopathy (principal) | CPT/HCPCS: 99221 ==

== ENCOUNTER → 2024-04-18 17:08 | Outpatient (BNV) | payer OTHER, SELFPAY | PROVIDERS: Admitting Provider Physician Assistant; Emergency Provider Emergency Medicine; PCP Internal Medicine; Visit Provider Internal Medicine Hypertension Specialist | DX: N17.9 Acute kidney failure, unspecified (principal); N18.9 Chronic kidney disease, unspecified; D64.9 Anemia, unspecified | CPT/HCPCS: 90935; 99223; 99232; 99499 ==

== ENCOUNTER → 2024-04-18 17:08 | Outpatient (BNV) | payer OTHER, SELFPAY | PROVIDERS: Admitting Provider Physician Assistant; Emergency Provider Emergency Medicine; PCP Internal Medicine; Visit Provider Surgery | DX: K81.0 Acute cholecystitis (principal) | CPT/HCPCS: 47562; 47600; 99024; 99222 ==

== ENCOUNTER 2024-05-02 18:15 | Inpatient (IN) | payer OTHER, SELFPAY ==
--- NOTE | ~2024-05-02 | US_ITS ---
EXAMINATION: US ABDOMEN LIMITED CLINICAL INFORMATION: Abdominal pain with question of hematoma in the gallbladder fossa. COMPARISON: CT abdomen pelvis earlier this evening 1 hour ago TECHNIQUE: Real-time imaging of the right upper quadrant abdominal viscera. FINDINGS: PANCREAS: Could not be seen as it was obscured by bowel gas. LIVER: Mild ascites is present. The liver is normal in size. The liver contour is normal. Parenchymal echogenicity is normal. No focal hepatic lesion. There is no intrahepatic biliary duct dilatation seen. GALLBLADDER: The gallbladder is abnormal with a heterogeneous mass in the gallbladder fossa measuring 7.9 x 6.0 x 7.4 cm. This is much better evaluated on the CT scan performed one hour ago which demonstrates a large hematoma in the gallbladder fossa. There is a shadowing structure present which corresponds with a surgical clip seen on the CT scan. COMMON BILE DUCT: Normal in caliber measuring 0.6 cm in diameter. RIGHT KIDNEY: Normal. No hydronephrosis. No renal calculi or focal parenchymal lesions. The kidney measures 9.8 cm in maximum dimension. FREE FLUID: None. US/US abdomen limited IMPRESSION: Large hematoma in the gallbladder fossa better demonstrated on the CT scan performed one hour ago.
--- NOTE | ~2024-05-02 | CT_ITS ---
EXAMINATION: CT ABDOMEN AND PELVIS WITHOUT CONTRAST CLINICAL INFORMATION: Postsurgical infection COMPARISON: Previous CT of the abdomen and pelvis 04/18/2024, MRCP 04/24/2024 and hepatobiliary scan 04/25/2024 TECHNIQUE: Multidetector volumetric imaging was performed from the superior aspect of the liver through the pubic symphysis. Sagittal and coronal reformatted images were obtained on the technologist's workstation. This CT examination was performed using dose optimization techniques as appropriate, variously including the following: *Automated exposure control *Adjustment of mA and/or kV according to patient size (this includes techniques or standardized protocols for targeted exams where dose is matched to indication/reason for exam; i.e. extremities or head) *Use of iterative reconstruction technique DLP: 717 mGy-cm FINDINGS: LUNG BASES: The heart is enlarged. There is bilateral lower lobe atelectasis/pneumonia left greater than right and small left pleural effusion. These are new findings compared to 04/18/2024 exam. LIVER, GALLBLADDER, AND BILIARY TREE: The liver is enlarged. There is a heterogeneous high and low attenuation collection seen in the gallbladder fossa adjacent to surgical clips postcholecystectomy. This measures approximately 5 x 7 x 8.5 cm. High attenuation raises question of hematoma. This has low-attenuation cystic areas. There is no focal liver lesion. There is no intra or extrahepatic biliary duct dilatation. PANCREAS: Unremarkable. SPLEEN: The spleen is slightly enlarged measuring 13.4 cm in length. ADRENAL GLANDS: Unremarkable. KIDNEYS AND URETERS: The kidneys are normal in size, shape, and attenuation. No hydronephrosis, hydroureter, or calculi seen. No perinephric stranding. BLADDER: Unremarkable. GASTROINTESTINAL TRACT: Stool throughout the colon suggestive of constipation. There is mild wall thickening of proximal small bowel loops in the left abdomen. Appearance questionable for enteritis. Slightly distended fluid-filled loops of small bowel. No transition zone is seen probably represents an ileus. Normal appendix. Small amount of generalized ascites. ABDOMINAL WALL: No significant hernia is appreciated. LYMPH NODES: Normal. VASCULAR: Severe atherosclerotic disease. PELVIC VISCERA: Unremarkable. OSSEOUS STRUCTURES: Degenerative changes of the spine. CT/CT abdomen pelvis wo IV con IMPRESSION: Heterogeneous collection in the gallbladder fossa measuring 5 x 7 x 8.5 cm. This is high attenuation with low-attenuation cystic areas. High attenuation raises question of possible hematoma. Given history of infection, infected hematoma should be considered. Wall thickening of the proximal small bowel in the left abdomen questionable for enteritis. Slightly distended fluid-filled small bowel suggestive of ileus. Constipation. Severe atherosclerotic disease. Bilateral lower lobe atelectasis/small pneumonia and small left pleural effusion. Slightly enlarged spleen. Findings will be communicated by the [facility] media planner / buyer Maude guidelines were followed.
[2024-05-02 20:01] VITALS: BP 82/39; PULSE 62; RESP 18; TEMP 36.4; O2SAT 97; BMI 22.7
--- NOTE | 2024-05-02 20:01 | ED.GENADULT ---
HPI - General Adult General Chief complaint: Abdominal Pain Stated complaint: aabd pain s/p appendectomy 04/21 jaundice Time Seen by Provider: 05/02/24 20:20 History of Present Illness ED Provider: Dr. Davila HPI narrative: 58 y/o M patient; PMH chronic normocytic anemia, HTN, HLD, T2DM, chronic pain syndrome, cocaine abuse, nephrotic syndrome, CKD, dHFpEF, depression, recent cholecystectomy; presents from home reporting inreased fatigue and worsening abdominal pain. Patient admitted from 04/18 - 04/29/2024 for severe RUQ abdominal pain. Found to have acute cholecystitis and choledocholithiasis with obstructive jaundice. Post surgery on 04/21/2024 patient had concern for possible bile leak. He chose to leave AMA on out-patient Augmentin which he is due to have completed by 05/02. Related Data Home Medications ?Medication ?Instructions ?Recorded ?Confirmed insulin lispro 100 unit/mL 14 unit subcut TIDAC 12/22/20 04/18/24 subcutaneous pen (Humalog KwikPen (U-100) Insulin) diphenhydramine HCl 25 mg capsule 25 mg PO BEDTIME 04/18/23 04/18/24 (Benadryl) tamsulosin 0.4 mg capsule 0.4 mg PO DAILY 04/18/23 04/18/24 ziprasidone HCl 60 mg capsule 60 mg PO BID 04/18/23 04/18/24 (Geodon) atorvastatin 80 mg tablet 80 mg PO DAILY 05/23/23 04/18/24 benztropine 0.5 mg tablet 0.5 mg DAILY 10/14/23 04/18/24 trazodone 50 mg tablet 50 - 100 mg PO BEDTIME PRN Insomnia 10/14/23 04/18/24 gabapentin 100 mg capsule 100 mg PO BID 11/10/23 04/18/24 dulaglutide 3 mg/0.5 mL 3 mg subcut WE 04/18/24 04/18/24 subcutaneous pen injector (Trulicity) Previous Rx's ?Medication ?Instructions ?Recorded ferrous sulfate 325 mg (65 mg 325 mg PO DAILY #90 tabs 01/23/24 iron) tablet amlodipine 10 mg tablet 10 mg PO DAILY #30 tabs 02/14/24 bumetanide 2 mg tablet 2 mg PO BID #60 tabs 02/14/24 carvedilol 6.25 mg tablet 6.25 mg PO BID #60 tabs 02/14/24 hydralazine 50 mg tablet 150 mg PO BID #180 tabs 02/14/24 amoxicillin 875 mg-potassium 1 tab PO BID #7 tabs 04/29/24 clavulanate 125 mg tablet insulin glargine 100 unit/mL (3 35 unit (0.35 mL) subcut DAILY #20 04/29/24 mL) subcutaneous pen (Lantus mL Solostar U-100 Insulin) Allergies Allergy/AdvReac Type Severity Reaction Status Date / Time No Known Allergies Allergy Verified 05/02/24 20:03 [No Known Allergies*] Review of Systems Review of Systems: Yes all other systems are reviewed and are negative [facility] Past Medical History Attestation statement: The following information was validated with the patient. Source: old records reviewed Medical History Anemia Congestive heart failure Nephrotic syndrome Diastolic heart failure Anemia Pneumonia Diabetic nephropathy Anemia Chronic pain syndrome Diabetic polyneuropathy Vitamin D deficiency Depression HTN (hypertension) HLD (hyperlipidemia) T2DM (type 2 diabetes mellitus) Surgical History Status post biopsy of kidney Hx of colonoscopy Hx of rotator cuff surgery Family History Family History Father Colon cancer Mother History of kidney problems T2DM (type 2 diabetes mellitus) Sister T2DM (type 2 diabetes mellitus) Social History Social History Household Members: Family Household Members Other:: 2 Housing: Apartment Do you presently have visiting nurse or other home services: Yes (1/wk) Alcohol intake: former Comment: allowed to walk in room Patient Tobacco Use Status: Never used Tobacco Smoked in Last 30 Days: No Second Hand Smoke Exposure: No Use of substances other than those prescribed or required for medical reasons: Yes Substance Use Type: Crack/Cocaine and Heroin Substance Use Frequency: Chronic Longstanding Last Used Substance: Unknown Advance Directives: Yes Advance Directives on File: Yes Advance Directives Date on File: 04/28/23 Do you have a plan to hurt others: No Plan service: No Current occupational status: disabled Current occupation: right handed Physical Exam ED Vital Signs: Vital Signs - 24 hr 05/02/24 20:01 05/02/24 20:19 05/02/24 20:19 Temperature 97.6 F 97.7 F Pulse Rate 62 69 70 Respiratory Rate 18 20 23 H Blood Pressure 82/39 L 113/50 L 113/50 L Pulse Oximetry 97 97 96 Oxygen Delivery Method Room Air Room Air Room Air 05/02/24 22:00 05/02/24 22:19 05/02/24 22:35 Temperature 97.8 F 97.8 F 98.0 F Pulse Rate 70 70 70 Respiratory Rate 16 16 17 Blood Pressure 102/48 L 102/48 L 103/50 L Pulse Oximetry 90 L Oxygen Delivery Method Room Air BMI result Body Mass Index 22.7 Patient is afebrile, hypotensive. Const General: lethargic Orientation/consciousness: lethargic HENDE Head: Yes atraumatic Eyes Other: scleral icterus Sclerae: scleral abnormal Neck Neck: Yes normal visual inspection, Yes full ROM and No tender Chest Chest palpation & inspection: normal palpation of entire chest wall Resp Effort & Inspection: normal respiratory effort, able to speak in complete sentences, no cough and no respiratory distress Auscultation: clear to auscultation bilaterally Cardio Rate: regular rate Rhythm: regular rhythm Peripheral pulses: Peripheral pulses 2+ throughout GI Other: Abdominal distention with generalized abdominal tenderness Surgical incision sites c/d/i staple lines Auscultation: Hypoactive bowel sounds present Skin Other: Jaundice Course Course Course Narrative: This is a rapid medical exam performed by Saritha Fowler NP: Additional HPI, ROS, PE not included below will be deferred to primary provider. Patient is a 58-year-old male with recent cholecystectomy on 04/21, CKD, DM, secondary hyperparathyroidsm, HFpEF, PAD presenting to the emergency department with sister who reports weakness, fatigue, dark urine, and altered mental status . He complains of upper abdominal pain. Appears jaundiced, lethargic in triage. Plan: labs, UA, rn discharge notified Reevaluation(s) Reevaluation #1: Patient has soft blood pressure without tachycardia or fever. Called by lab that patient with Hgb 5.8 - ordered 2 units pRBC. Leukocytosis 17.0. Sodium 130. Cr 6.14. (prior 4.74 on 04/27/2024). Bicarb 13. Glucose 463. Tbili 8.6. AST 167/ALT 156. Alk Phos 1600. Ammonia 24. Troponin 36.7. Lipase 138. Blood cultures and lactic acid ordered. Started on empiric Zosyn. Ordered CT Abdomen/Pelvis WO Contrast. Long discussion about goals of care had with patient and daughter (POA) at bedside. Patient would like to be DNR/DNI. He is NOT interested in dialysis for any length of time. Family would like to pursue treatment at this time but discuss comfort care if patient's condition appears to be terminal. Will provide Morphine 2mg IV and Zofran 4mg IV at this time. Plan: Transition care to Dr. Cano pending diagnostic studies and likely admission Condition: Stable Reevaluation #2: I just had an extensive discussion with patient's healthcare proxy, Sirisha, and her sisters via the paraprofessional interpreter. I discussed the dire circumstances that the patient is experiencing at this time. She states that he is adamant about being DNR/DNI and adamant about not receiving dialysis. I discussed the CT scan findings of what most likely is a hematoma and evidence to suggest there may be subsequent compression on the CBD, I discussed that surgical intervention given that patient is DNI is not feasible and that even if he was not DNI he would have a poor prognosis. We did briefly discuss the possibility of interventional radiology and that this would involve a transfer, if the institution was accepting, and that they would likely be requesting for patient to undergo dialysis as well. I did explain to them that this intervention would not relieve any external compression exerted by the hematoma on the surrounding structures. The HCP as well as rest of the family acknowledged understanding, the reiterate that they do not want him to suffer and that he should remain DNR/DNI and no dialysis. They do not wish for transfer for interventional radiology at this time, they are considering comfort care measures but wished to wait for the other decision maker, Yao, which is the HCP's brother and patient's son. I have updated Gastroenterology and General surgery regarding family in patient's decision. At this time they wished to continue with blood transfusion. I have spent 45 minutes in critical care time discussing goals of care with the patient/family as well as communicating with specialist regarding patient's care. Time: 23:18 Reevaluation #3: I have been in communication with Dr. Rosenbaum as well as Dr. Trammell throughout regarding imaging findings and patient is status. Time: 21:55 Medications Administered Discontinued Medications Generic Name Dose Route Start Last Admin Trade Name Freq PRN Reason Stop Dose Admin Piperacillin Sod/Tazobactam 50 mls @ 100 mls/hr 05/02/24 20:28 05/02/24 22:30 Sod 3.375 gm/ Sodium Chloride IV 05/02/24 20:57 Infused ONCE ONE Infusion Sodium Chloride 500 mls @ 500 mls/hr 05/02/24 22:15 05/02/24 22:30 Ns IV 05/02/24 23:14 500 mls/hr .Q1H BRENNEN Administration Morphine Sulfate 2 mg 05/02/24 20:50 05/02/24 22:05 Morphine Sulfate 2 Mg/Ml Cartridge IVPUSH 05/02/24 20:51 2 mg ONCE ONE Administration Protocol Ondansetron HCl 4 mg 05/02/24 20:50 05/02/24 22:06 Ondansetron Hcl 4 Mg/2 Ml Vial IVPUSH 05/02/24 20:51 4 mg ONCE ONE Administration Medical Decision Making Lab Data 05/02/24 20:14 05/02/24 20:14 Labs: Lab Results 05/02/24 05/02/24 05/02/24 Range/Units 20:14 20:14 20:14 WBC 17.0 H (4.8-10.8) X10*3/uL RBC 1.94 L D (4.60-5.80) X10*6/uL Hgb 5.8 L* D (14.0-18.0) g/dl Hct 16.9 L* D (42.0-52.0) % MCV 87.1 (80.0-98.0) fL MCH 29.9 (27.0-33.0) pg MCHC 34.3 (31.0-36.0) g/dl RDW 17.7 H (11.0-16.0) % Plt Count 203 (160-400) X10*3/uL MPV 10.4 (9.4-12.4) fL Immature Gran % (Auto) 0.8 H (0.0-0.4) % Neut % (Auto) 84.1 H (45-73) % Lymph % (Auto) 7.6 L (20-40) % [place] % (Auto) 6.8 (2-11) % Eos % (Auto) 0.5 (0-4) % Baso % (Auto) 0.2 (0-2) % Lymph # (Auto) 1.3 (1.2-4.9) X10*3/uL [place] # (Auto) 1.2 (0.1-1.2) X10*3/uL Eos # (Auto) 0.1 (0.0-0.4) X10*3/uL Baso # (Auto) 0.0 (0.0-0.2) X10*3/uL Abs Immat Gran (auto) 0.14 H (0.00-0.03) X10*3/uL Absolute Neuts (auto) 14.3 H (2.0-8.3) x10*3/uL Absolute Nucleated RBC 0.000 (0.0-0.012) X10*3/uL Nucleated RBC % (auto) 0.0 (0.0-0.2) /100WBC PT 15.2 H (11.1-13.3) SEC INR 1.3 H (0.9-1.1) VBG pH (7.32-7.43) VBG pCO2 mmHg VBG pO2 mmHg VBG HCO3 (22-26) mmol/L VBG O2 Saturation VBG Base Excess mmol/L Sodium Cancelled 130 L Potassium Cancelled 4.0 Chloride Cancelled Carbon Dioxide Anion Gap BUN Creatinine Estim Creat Clear Calc Estimated GFR Random Glucose Lactic Acid (0.5-2.0) mmol/L Calcium Magnesium Total Bilirubin Direct Bilirubin (0.0-0.5) mg/dL AST ALT Alkaline Phosphatase Ammonia (13-55) umol/L Troponin I High Sens (<3.5-35.0) ng/L Total Protein Albumin Amylase (28-100) U/L Lipase Beta-Hydroxybutyrate (0.02-0.27) mmol/L Blood Type Antibody Screen Crossmatch 05/02/24 05/02/24 05/02/24 Range/Units 20:14 20:14 20:14 WBC (4.8-10.8) X10*3/uL RBC (4.60-5.80) X10*6/uL Hgb (14.0-18.0) g/dl Hct (42.0-52.0) % MCV (80.0-98.0) fL MCH (27.0-33.0) pg MCHC (31.0-36.0) g/dl RDW (11.0-16.0) % Plt Count (160-400) X10*3/uL MPV (9.4-12.4) fL Immature Gran % (Auto) (0.0-0.4) % Neut % (Auto) (45-73) % Lymph % (Auto) (20-40) % [place] % (Auto) (2-11) % Eos % (Auto) (0-4) % Baso % (Auto) (0-2) % Lymph # (Auto) (1.2-4.9) X10*3/uL [place] # (Auto) (0.1-1.2) X10*3/uL Eos # (Auto) (0.0-0.4) X10*3/uL Baso # (Auto) (0.0-0.2) X10*3/uL Abs Immat Gran (auto) (0.00-0.03) X10*3/uL Absolute Neuts (auto) (2.0-8.3) x10*3/uL Absolute Nucleated RBC (0.0-0.012) X10*3/uL Nucleated RBC % (auto) (0.0-0.2) /100WBC PT (11.1-13.3) SEC INR (0.9-1.1) VBG pH (7.32-7.43) VBG pCO2 mmHg VBG pO2 mmHg VBG HCO3 (22-26) mmol/L VBG O2 Saturation VBG Base Excess mmol/L Sodium Potassium Chloride 101 Carbon Dioxide Cancelled 13 L Anion Gap Cancelled 20 BUN Cancelled Creatinine Estim Creat Clear Calc Estimated GFR Random Glucose Lactic Acid (0.5-2.0) mmol/L Calcium Magnesium Total Bilirubin Direct Bilirubin (0.0-0.5) mg/dL AST ALT Alkaline Phosphatase Ammonia (13-55) umol/L Troponin I High Sens (<3.5-35.0) ng/L Total Protein Albumin Amylase (28-100) U/L Lipase Beta-Hydroxybutyrate (0.02-0.27) mmol/L Blood Type Antibody Screen Crossmatch 05/02/24 05/02/24 05/02/24 Range/Units 20:14 20:14 20:14 WBC (4.8-10.8) X10*3/uL RBC (4.60-5.80) X10*6/uL Hgb (14.0-18.0) g/dl Hct (42.0-52.0) % MCV (80.0-98.0) fL MCH (27.0-33.0) pg MCHC (31.0-36.0) g/dl RDW (11.0-16.0) % Plt Count (160-400) X10*3/uL MPV (9.4-12.4) fL Immature Gran % (Auto) (0.0-0.4) % Neut % (Auto) (45-73) % Lymph % (Auto) (20-40) % [place] % (Auto) (2-11) % Eos % (Auto) (0-4) % Baso % (Auto) (0-2) % Lymph # (Auto) (1.2-4.9) X10*3/uL [place] # (Auto) (0.1-1.2) X10*3/uL Eos # (Auto) (0.0-0.4) X10*3/uL Baso # (Auto) (0.0-0.2) X10*3/uL Abs Immat Gran (auto) (0.00-0.03) X10*3/uL Absolute Neuts (auto) (2.0-8.3) x10*3/uL Absolute Nucleated RBC (0.0-0.012) X10*3/uL Nucleated RBC % (auto) (0.0-0.2) /100WBC PT (11.1-13.3) SEC INR (0.9-1.1) VBG pH (7.32-7.43) VBG pCO2 mmHg VBG pO2 mmHg VBG HCO3 (22-26) mmol/L VBG O2 Saturation VBG Base Excess mmol/L Sodium Potassium Chloride Carbon Dioxide Anion Gap BUN 71 H Creatinine Cancelled 6.14 H* Estim Creat Clear Calc Cancelled 10.8 Estimated GFR Cancelled Random Glucose Lactic Acid (0.5-2.0) mmol/L Calcium Magnesium Total Bilirubin Direct Bilirubin (0.0-0.5) mg/dL AST ALT Alkaline Phosphatase Ammonia (13-55) umol/L Troponin I High Sens (<3.5-35.0) ng/L Total Protein Albumin Amylase (28-100) U/L Lipase Beta-Hydroxybutyrate (0.02-0.27) mmol/L Blood Type Antibody Screen Crossmatch 05/02/24 05/02/24 05/02/24 Range/Units 20:14 20:14 20:14 WBC (4.8-10.8) X10*3/uL RBC (4.60-5.80) X10*6/uL Hgb (14.0-18.0) g/dl Hct (42.0-52.0) % MCV (80.0-98.0) fL MCH (27.0-33.0) pg MCHC (31.0-36.0) g/dl RDW (11.0-16.0) % Plt Count (160-400) X10*3/uL MPV (9.4-12.4) fL Immature Gran % (Auto) (0.0-0.4) % Neut % (Auto) (45-73) % Lymph % (Auto) (20-40) % [place] % (Auto) (2-11) % Eos % (Auto) (0-4) % Baso % (Auto) (0-2) % Lymph # (Auto) (1.2-4.9) X10*3/uL [place] # (Auto) (0.1-1.2) X10*3/uL Eos # (Auto) (0.0-0.4) X10*3/uL Baso # (Auto) (0.0-0.2) X10*3/uL Abs Immat Gran (auto) (0.00-0.03) X10*3/uL Absolute Neuts (auto) (2.0-8.3) x10*3/uL Absolute Nucleated RBC (0.0-0.012) X10*3/uL Nucleated RBC % (auto) (0.0-0.2) /100WBC PT (11.1-13.3) SEC INR (0.9-1.1) VBG pH (7.32-7.43) VBG pCO2 mmHg VBG pO2 mmHg VBG HCO3 (22-26) mmol/L VBG O2 Saturation VBG Base Excess mmol/L Sodium Potassium Chloride Carbon Dioxide Anion Gap BUN Creatinine Estim Creat Clear Calc Estimated GFR 10 Random Glucose Cancelled 463 H* Lactic Acid 1.1 (0.5-2.0) mmol/L Calcium Cancelled 7.2 L D Magnesium Cancelled Total Bilirubin Direct Bilirubin (0.0-0.5) mg/dL AST ALT Alkaline Phosphatase Ammonia (13-55) umol/L Troponin I High Sens (<3.5-35.0) ng/L Total Protein Albumin Amylase (28-100) U/L Lipase Beta-Hydroxybutyrate (0.02-0.27) mmol/L Blood Type Antibody Screen Crossmatch 05/02/24 05/02/24 05/02/24 Range/Units 20:14 20:14 20:14 WBC (4.8-10.8) X10*3/uL RBC (4.60-5.80) X10*6/uL Hgb (14.0-18.0) g/dl Hct (42.0-52.0) % MCV (80.0-98.0) fL MCH (27.0-33.0) pg MCHC (31.0-36.0) g/dl RDW (11.0-16.0) % Plt Count (160-400) X10*3/uL MPV (9.4-12.4) fL Immature Gran % (Auto) (0.0-0.4) % Neut % (Auto) (45-73) % Lymph % (Auto) (20-40) % [place] % (Auto) (2-11) % Eos % (Auto) (0-4) % Baso % (Auto) (0-2) % Lymph # (Auto) (1.2-4.9) X10*3/uL [place] # (Auto) (0.1-1.2) X10*3/uL Eos # (Auto) (0.0-0.4) X10*3/uL Baso # (Auto) (0.0-0.2) X10*3/uL Abs Immat Gran (auto) (0.00-0.03) X10*3/uL Absolute Neuts (auto) (2.0-8.3) x10*3/uL Absolute Nucleated RBC (0.0-0.012) X10*3/uL Nucleated RBC % (auto) (0.0-0.2) /100WBC PT (11.1-13.3) SEC INR (0.9-1.1) VBG pH (7.32-7.43) VBG pCO2 mmHg VBG pO2 mmHg VBG HCO3 (22-26) mmol/L VBG O2 Saturation VBG Base Excess mmol/L Sodium Potassium Chloride Carbon Dioxide Anion Gap BUN Creatinine Estim Creat Clear Calc Estimated GFR Random Glucose Lactic Acid (0.5-2.0) mmol/L Calcium Magnesium 2.7 H Total Bilirubin Cancelled 8.6 H Direct Bilirubin 6.8 H (0.0-0.5) mg/dL AST Cancelled 167 H ALT Cancelled Alkaline Phosphatase Ammonia (13-55) umol/L Troponin I High Sens (<3.5-35.0) ng/L Total Protein Albumin Amylase (28-100) U/L Lipase Beta-Hydroxybutyrate (0.02-0.27) mmol/L Blood Type Antibody Screen Crossmatch 05/02/24 05/02/24 05/02/24 Range/Units 20:14 20:14 20:14 WBC (4.8-10.8) X10*3/uL RBC (4.60-5.80) X10*6/uL Hgb (14.0-18.0) g/dl Hct (42.0-52.0) % MCV (80.0-98.0) fL MCH (27.0-33.0) pg MCHC (31.0-36.0) g/dl RDW (11.0-16.0) % Plt Count (160-400) X10*3/uL MPV (9.4-12.4) fL Immature Gran % (Auto) (0.0-0.4) % Neut % (Auto) (45-73) % Lymph % (Auto) (20-40) % [place] % (Auto) (2-11) % Eos % (Auto) (0-4) % Baso % (Auto) (0-2) % Lymph # (Auto) (1.2-4.9) X10*3/uL [place] # (Auto) (0.1-1.2) X10*3/uL Eos # (Auto) (0.0-0.4) X10*3/uL Baso # (Auto) (0.0-0.2) X10*3/uL Abs Immat Gran (auto) (0.00-0.03) X10*3/uL Absolute Neuts (auto) (2.0-8.3) x10*3/uL Absolute Nucleated RBC (0.0-0.012) X10*3/uL Nucleated RBC % (auto) (0.0-0.2) /100WBC PT (11.1-13.3) SEC INR (0.9-1.1) VBG pH (7.32-7.43) VBG pCO2 mmHg VBG pO2 mmHg VBG HCO3 (22-26) mmol/L VBG O2 Saturation VBG Base Excess mmol/L Sodium Potassium Chloride Carbon Dioxide Anion Gap BUN Creatinine Estim Creat Clear Calc Estimated GFR Random Glucose Lactic Acid (0.5-2.0) mmol/L Calcium Magnesium Total Bilirubin Direct Bilirubin (0.0-0.5) mg/dL AST ALT 156 H Alkaline Phosphatase Cancelled 1600 H Ammonia 24 (13-55) umol/L Troponin I High Sens 36.7 H D (<3.5-35.0) ng/L Total Protein Cancelled 6.4 L Albumin Cancelled Amylase (28-100) U/L Lipase Beta-Hydroxybutyrate (0.02-0.27) mmol/L Blood Type Antibody Screen Crossmatch 05/02/24 05/02/24 05/02/24 Range/Units 20:14 20:14 20:48 WBC (4.8-10.8) X10*3/uL RBC (4.60-5.80) X10*6/uL Hgb (14.0-18.0) g/dl Hct (42.0-52.0) % MCV (80.0-98.0) fL MCH (27.0-33.0) pg MCHC (31.0-36.0) g/dl RDW (11.0-16.0) % Plt Count (160-400) X10*3/uL MPV (9.4-12.4) fL Immature Gran % (Auto) (0.0-0.4) % Neut % (Auto) (45-73) % Lymph % (Auto) (20-40) % [place] % (Auto) (2-11) % Eos % (Auto) (0-4) % Baso % (Auto) (0-2) % Lymph # (Auto) (1.2-4.9) X10*3/uL [place] # (Auto) (0.1-1.2) X10*3/uL Eos # (Auto) (0.0-0.4) X10*3/uL Baso # (Auto) (0.0-0.2) X10*3/uL Abs Immat Gran (auto) (0.00-0.03) X10*3/uL Absolute Neuts (auto) (2.0-8.3) x10*3/uL Absolute Nucleated RBC (0.0-0.012) X10*3/uL Nucleated RBC % (auto) (0.0-0.2) /100WBC PT (11.1-13.3) SEC INR (0.9-1.1) VBG pH (7.32-7.43) VBG pCO2 mmHg VBG pO2 mmHg VBG HCO3 (22-26) mmol/L VBG O2 Saturation VBG Base Excess mmol/L Sodium Potassium Chloride Carbon Dioxide Anion Gap BUN Creatinine Estim Creat Clear Calc Estimated GFR Random Glucose Lactic Acid (0.5-2.0) mmol/L Calcium Magnesium Total Bilirubin Direct Bilirubin (0.0-0.5) mg/dL AST ALT Alkaline Phosphatase Ammonia (13-55) umol/L Troponin I High Sens (<3.5-35.0) ng/L Total Protein Albumin 2.9 L Amylase 88 (28-100) U/L Lipase Cancelled 138 H Beta-Hydroxybutyrate 0.12 (0.02-0.27) mmol/L Blood Type A Positive Antibody Screen NEGATIVE Crossmatch See Detail 05/02/24 Range/Units 20:54 WBC (4.8-10.8) X10*3/uL RBC (4.60-5.80) X10*6/uL Hgb (14.0-18.0) g/dl Hct (42.0-52.0) % MCV (80.0-98.0) fL MCH (27.0-33.0) pg MCHC (31.0-36.0) g/dl RDW (11.0-16.0) % Plt Count (160-400) X10*3/uL MPV (9.4-12.4) fL Immature Gran % (Auto) (0.0-0.4) % Neut % (Auto) (45-73) % Lymph % (Auto) (20-40) % [place] % (Auto) (2-11) % Eos % (Auto) (0-4) % Baso % (Auto) (0-2) % Lymph # (Auto) (1.2-4.9) X10*3/uL [place] # (Auto) (0.1-1.2) X10*3/uL Eos # (Auto) (0.0-0.4) X10*3/uL Baso # (Auto) (0.0-0.2) X10*3/uL Abs Immat Gran (auto) (0.00-0.03) X10*3/uL Absolute Neuts (auto) (2.0-8.3) x10*3/uL Absolute Nucleated RBC (0.0-0.012) X10*3/uL Nucleated RBC % (auto) (0.0-0.2) /100WBC PT (11.1-13.3) SEC INR (0.9-1.1) VBG pH 7.43 (7.32-7.43) VBG pCO2 18 mmHg VBG pO2 216 mmHg VBG HCO3 12 L (22-26) mmol/L VBG O2 Saturation TNP VBG Base Excess -9.9 mmol/L Sodium Potassium Chloride Carbon Dioxide Anion Gap BUN Creatinine Estim Creat Clear Calc Estimated GFR Random Glucose Lactic Acid (0.5-2.0) mmol/L Calcium Magnesium Total Bilirubin Direct Bilirubin (0.0-0.5) mg/dL AST ALT Alkaline Phosphatase Ammonia (13-55) umol/L Troponin I High Sens (<3.5-35.0) ng/L Total Protein Albumin Amylase (28-100) U/L Lipase Beta-Hydroxybutyrate (0.02-0.27) mmol/L Blood Type Antibody Screen Crossmatch Discharge Plan Discharge Clinical Impression: Abdominal pain, Anemia, Jaundice, KWAME (acute kidney injury), Acute blood loss anemia Patient Disposition: Admitted As Inpatient Prescriptions: No Action ferrous sulfate 325 mg (65 mg iron) tablet 325 mg PO DAILY Qty: 90 1RF Trulicity 3 mg/0.5 mL pen injector 3 mg subcut WE Rx Instructions: Every Tuesday amoxicillin-pot clavulanate 875-125 mg Tablet 1 tab PO BID Qty: 7 0RF insulin glargine [Lantus Solostar U-100 Insulin] 100 unit/mL (3 mL) insulin pen 35 unit subcut DAILY Qty: 20 0RF tamsulosin 0.4 mg capsule 0.4 mg PO DAILY diphenhydramine HCl [Benadryl] 25 mg capsule 25 mg PO BEDTIME ziprasidone HCl [Geodon] 60 mg capsule 60 mg PO BID atorvastatin 80 mg tablet 80 mg PO DAILY benztropine 0.5 mg tablet 0.5 mg DAILY trazodone 50 mg tablet 50 - 100 mg PO BEDTIME PRN (Reason: Insomnia) gabapentin 100 mg capsule 100 mg PO BID insulin lispro [Humalog KwikPen Insulin] 100 unit/mL insulin pen 14 unit subcut TIDAC amlodipine 10 mg tablet 10 mg PO DAILY Qty: 30 5RF Protocol: Hold for SBP< HOLD for SBP < : 90 bumetanide 2 mg tablet 2 mg PO BID Qty: 60 5RF carvedilol 6.25 mg tablet 6.25 mg PO BID Qty: 60 5RF hydralazine 50 mg tablet 150 mg PO BID Qty: 180 5RF Protocol: Hold for SBP< HOLD for SBP < : 90 Print Language: Mongolian
--- NOTE | 2024-05-02 20:05 | ECG_ITS ---
Test Reason : WEAKNESS Blood Pressure : / mmHG Vent. Rate : 069 BPM Atrial Rate : 069 BPM P-R Int : 148 ms QRS Dur : 082 ms QT Int : 472 ms P-R-T Axes : 058 078 020 degrees QTc Int : 505 ms Normal sinus rhythm Nonspecific ST abnormality Prolonged QT Abnormal ECG When compared with ECG of 01-FEB-2024 17:11, Questionable change in QRS axis Referred By: Shaina Fowler Electronically Signed By:RACHEL MEJIA
[2024-05-02 20:19] VITALS: BP 113/50; PULSE 69; PULSE 70; RESP 20; RESP 23; TEMP 36.5; O2SAT 96; O2SAT 97
[2024-05-02 20:21] LABS: MANUAL DIFF FLAG NO
[2024-05-02 20:22] LABS: Basophils Percent Auto 0.2 % (0-2); Eosinophils Absolute Auto 0.1 X10*3/uL (0.0-0.4); Eosinophils Percent Auto 0.5 % (0-4); Imm Gran Abs Auto 0.14 X10*3/uL (0.00-0.03); Imm Gran Pct Auto 0.8 % (0.0-0.4); Lymphocytes Absolute Auto 1.3 X10*3/uL (1.2-4.9); Lymphocytes Percent Auto 7.6 % (20-40); Mean Corpuscular HGB Conc 34.3 g/dl (31.0-36.0); Mean Corpuscular Hemoglobin 29.9 pg (27.0-33.0); Mean Corpuscular Volume 87.1 fL (80.0-98.0); Mean Platelet Volume 10.4 fL (9.4-12.4); Monocytes Absolute Auto 1.2 X10*3/uL (0.1-1.2); Monocytes Percent Auto 6.8 % (2-11); Neutrophils Absolute Auto 14.3 x10*3/uL (2.0-8.3); Neutrophils Percent Auto 84.1 % (45-73); Platelet Count 203 X10*3/uL (160-400); Red Blood Count 1.94 X10*6/uL (4.60-5.80); Red Cell Distribution Width 17.7 % (11.0-16.0)
[2024-05-02 20:27] LABS: Hematocrit 16.9 % (42.0-52.0); Hemoglobin 5.8 g/dl (14.0-18.0)
[2024-05-02 20:30] LABS: Ammonia 24 umol/L (13-55)
[2024-05-02 20:33] LABS: Lactic Acid 1.1 mmol/L (0.5-2.0)
[2024-05-02 20:34] LABS: INTERNATIONAL NORM RATIO 1.3 (0.9-1.1); Prothrombin Time 15.2 SEC (11.1-13.3)
[2024-05-02 20:43] LABS: Alanine Aminotransferase 156 U/L (0-40); Albumin Level 2.9 g/dL (3.5-5.0); Alkaline Phosphatase 1600 U/L (39-117); Amylase 88 U/L (28-100); Anion Gap 20 (12-20); Aspartate Amino Transferase 167 U/L (5-37); Bilirubin Total 8.6 mg/dL (0.0-1.0); Blood Urea Nitrogen 71 mg/dL (9-16); Calcium 7.2 mg/dL (8.4-10.2); Carbon Dioxide 13 mmol/L (22-29); Chloride 101 mmol/L (96-108); Creatinine Clr Calc Pharmacy 10.8; Estimated Glomerular Filt Rate 10; Glucose Random 463 mg/dL (60-115); Lipase 138 U/L (8-78); Magnesium 2.7 mg/dL (1.6-2.6); Sodium 130 mmol/L (135-145); Total Protein 6.4 g/dL (6.5-8.0)
[2024-05-02 20:44] LABS: Troponin-I High Sensitivity 36.7 ng/L (<3.5-35.0)
[2024-05-02 21:00] LABS: Venous Blood Gas Refer to POC result
[2024-05-02 21:00] LABS: VBG Base Excess -9.9 mmol/L; VBG HCO3 12 mmol/L (22-26); VBG pCO2 18 mmHg; VBG pH 7.43 (7.32-7.43); VBG pO2 216 mmHg
[2024-05-02 21:07] LABS: Beta-Hydroxybutyrate 0.12 mmol/L (0.02-0.27)
[2024-05-02 22:00] VITALS: BP 102/48; PULSE 70; RESP 16; TEMP 36.6; O2SAT 90
[2024-05-02] MEDS: Morphine Sulfate 2 MG/ML CARTRIDGE IVPUSH (22:05)
[2024-05-02] MEDS: ondansetron HCL 4 MG/2 ML VIAL IVPUSH (22:06)
[2024-05-02] MEDS: Piperacillin Sodium/Tazobactam 3.375 GM in 0.9 % Sodium Chloride 50 ML IV (22:06)
[2024-05-02 22:19] VITALS: BP 102/48; PULSE 70; RESP 16; TEMP 36.6
--- NOTE | 2024-05-02 22:23 | PC.NURSE ---
Initial unit of RBC started in R AC.
[2024-05-02] MEDS: 0.9 % Sodium Chloride 500 ML IV (22:30)
[2024-05-02 22:35] VITALS: BP 103/50; BP 119/69; PULSE 68; PULSE 70; RESP 17; RESP 18; TEMP 36.6; TEMP 36.7
[2024-05-02 22:56] LABS: Bilirubin Direct 6.8 mg/dL (0.0-0.5)
[2024-05-02 23:58] VITALS: BP 116/51; PULSE 73; RESP 18; TEMP 36.4; O2SAT 94
[2024-05-03] VITALS (11 sets, daily range): BP systolic 112–132; BP diastolic 52–62; PULSE 75–82; RESP 14–18; TEMP 36.6–37.3; O2SAT 89–99
--- NOTE | 2024-05-03 01:36 | P.HPHOSP_ITS ---
History of Present Illness Date of Service: 05/03/24 Attending physician on admission: Gregorio Galindo Chief Complaint: Abdominal pain Yao Rivera is a 58 years old man with past medical history significant for renal failure/nephrotic syndrome recently started on hemodialysis, depression, CHF, type 2 diabetes mellitus., hypertension, hyperlipidemia presents to the emergency department complaining of abdominal pain. Patient was accompanied by multiple family members. Patient's sister stated that pain has not been doing well. He has been very weak and complaining of generalized pain and abdominal pain. He has not been eating well. Patient was recent hospitalized acute cholecystitis/cholelithiasis/Mirizzi's syndrome with obstructive jaundice undergoing laparoscopy coverted to open cholecystectomy (April 20) with ELAINA draining complicated with coagulase-negative Staph bacteremia. This surgery was complicated by acute inflamed gallbladder with adhesions and infection necessitating a partial CCY, removal of large stone. The patient decided to leave AMA 4 days ago. Sister said that Yao told them (his family) that he was discharged from the hospital officially and not that he left AMA; and that she basically forced him to come to the hospital today for evaluation. He had only 1 hemodialysis session. In the ED, he was found to have stable vital signs. His blood workup was remarkable for leukocytosis and marked anemia 5.8 and hematocrit of 16.9. Platelets are normal. His INR is 1.3. Renal function is declining. Creatinine is now 6.14 (prior 4.74). BUN 71 (prior 41), hyperglycemia 463, CO2 13. LFTs are markedly worsening: bilirubin is 8.6 (before 3.1), bilirubin 8.6, AST 167, ALT 156, alk-phos 1600. Troponin is 36.7, albumin 2.9 and lipase 138. Beta hydroxybutyrate is normal. PH is 7.43 and bicarb 12. Abdominal pelvis CT scan showed possible infected hematoma in the gallbladder fossa, possible ileus, constipation and possible enteritis. It also showed bilateral lower lobe atelectasis/small pneumonia and pleural effusion and enlarged spleen. Abdominal ultrasound showed large hematoma in the gallbladder fossa. ED tx: Zosyn 3.375 g, Zofran 4 mg IV, morphine 2 mg IV, NS 500 mL [facility] Medical History Anemia Congestive heart failure Nephrotic syndrome Diastolic heart failure Anemia Pneumonia Diabetic nephropathy Anemia Chronic pain syndrome Diabetic polyneuropathy Vitamin D deficiency Depression HTN (hypertension) HLD (hyperlipidemia) T2DM (type 2 diabetes mellitus) Family History Father Colon cancer Mother History of kidney problems T2DM (type 2 diabetes mellitus) Sister T2DM (type 2 diabetes mellitus) Surgical History Status post biopsy of kidney Hx of colonoscopy Hx of rotator cuff surgery Social History Household Members: Family Household Members Other:: 2 Housing: Apartment Do you presently have visiting nurse or other home services: Yes (1/wk) Alcohol intake: former Comment: allowed to walk in room Patient Tobacco Use Status: Never used Tobacco Smoked in Last 30 Days: No Second Hand Smoke Exposure: No Use of substances other than those prescribed or required for medical reasons: Yes Substance Use Type: Crack/Cocaine and Heroin Substance Use Frequency: Chronic Longstanding Last Used Substance: Unknown Advance Directives: Yes Advance Directives on File: Yes Advance Directives Date on File: 04/28/23 Do you have a plan to hurt others: No Plan service: No Current occupational status: disabled Current occupation: right handed Meds Allergies Allergy/AdvReac Type Severity Reaction Status Date / Time No Known Allergies Allergy Verified 05/02/24 20:03 [No Known Allergies*] Active Medications: Current Medications Docusate Sodium (Docusate Sodium 100 Mg Capsule) 100 mg PO BEDTIME BRENNEN Morphine Sulfate (Morphine Sulfate/Ns) 100 mg in 100 mls @ 0 mls/hr IVCONT .Q0M BRENNEN; Protocol Ondansetron HCl (Ondansetron Hcl 4 Mg/2 Ml Vial) 4 mg IVPUSH Q8H PRN PRN Reason: Nausea and Vomiting Sodium Chloride (0.9 % Sodium Chloride Flush 3 Ml Syringe) 3 ml IVFLUSH QSHIFT [facility] Home Medications ?Medication ?Instructions ?Recorded ?Confirmed ?Last Taken ?Type insulin lispro 100 unit/mL 14 unit subcut TIDAC 12/22/20 04/18/24 04/17/24 History subcutaneous pen (Humalog KwikPen (U-100) Insulin) diphenhydramine HCl 25 mg capsule 25 mg PO BEDTIME 04/18/23 04/18/24 04/17/24 History (Benadryl) tamsulosin 0.4 mg capsule 0.4 mg PO DAILY 04/18/23 04/18/24 04/17/24 History ziprasidone HCl 60 mg capsule 60 mg PO BID 04/18/23 04/18/24 04/17/24 History (Geodon) atorvastatin 80 mg tablet 80 mg PO DAILY 05/23/23 04/18/24 04/17/24 History benztropine 0.5 mg tablet 0.5 mg DAILY 10/14/23 04/18/24 04/17/24 History trazodone 50 mg tablet 50 - 100 mg PO BEDTIME PRN Insomnia 10/14/23 04/18/24 04/17/24 History gabapentin 100 mg capsule 100 mg PO BID 11/10/23 04/18/24 04/17/24 History dulaglutide 3 mg/0.5 mL 3 mg subcut WE 04/18/24 04/18/24 04/11/24 History subcutaneous pen injector (Trulicity) Physical Exam 2 Vital Signs and Narrative: Vital Signs: Last Vital Signs Temp 97.5 F 05/02/24 23:58 Pulse 73 05/02/24 23:58 Resp 18 05/02/24 23:58 BP 116/51 L 05/02/24 23:58 Pulse Ox 94 05/02/24 23:58 O2 Del Method Room Air, Nasal C annula 05/02/24 23:58 O2 Flow Rate 1 05/02/24 23:58 BMI result Body Mass Index 22.7 Constitutional - Lethargic. Easy to arouse. No acute distress. Pleasant. Cooperative. HEENT - icterus sclerae Heart - S1S2, RRR. Lungs - Normal lung expansion, Normal respiratory effort, No respiratory distress. Decreased breath sound at bases. No rhonchi. No crackles. No wheezing. Abdomen - Mildly disterded. Decreased bowel sounds. RUQ and epigastric tenderness with guarding and rebound. Extremities - No edema. Marked tenderness to palpation to the lower extremities. Musculoskeletal - Normal inspection, normal ROM Skin - Warm/Dry. Jaundice. Neurological - Lethargic & oriented x3. No facial droop No focal weakness grossly noted. Psychological - Depressed affect Results Labs 05/02/24 20:14 05/02/24 20:14 Labs: Laboratory Results - last 24 hr 05/02/24 05/02/24 05/02/24 20:14 20:14 20:14 MCV 87.1 MCH 29.9 MCHC 34.3 RDW 17.7 H Plt Count 203 MPV 10.4 Immature Gran % (Auto) 0.8 H Neut % (Auto) 84.1 H Lymph % (Auto) 7.6 L [place] % (Auto) 6.8 Eos % (Auto) 0.5 Baso % (Auto) 0.2 Lymph # (Auto) 1.3 [place] # (Auto) 1.2 Eos # (Auto) 0.1 Baso # (Auto) 0.0 Abs Immat Gran (auto) 0.14 H Absolute Neuts (auto) 14.3 H Absolute Nucleated RBC 0.000 Nucleated RBC % (auto) 0.0 PT 15.2 H INR 1.3 H VBG pH VBG pCO2 VBG pO2 VBG HCO3 VBG O2 Saturation VBG Base Excess Anion Gap Cancelled 20 Estim Creat Clear Calc Cancelled 10.8 Estimated GFR Cancelled Random Glucose Lactic Acid Calcium Magnesium Total Bilirubin Direct Bilirubin AST ALT Alkaline Phosphatase Ammonia Troponin I High Sens Total Protein Albumin Amylase Lipase Beta-Hydroxybutyrate Blood Type Antibody Screen Crossmatch 05/02/24 05/02/24 05/02/24 20:14 20:14 20:14 MCV MCH MCHC RDW Plt Count MPV Immature Gran % (Auto) Neut % (Auto) Lymph % (Auto) [place] % (Auto) Eos % (Auto) Baso % (Auto) Lymph # (Auto) [place] # (Auto) Eos # (Auto) Baso # (Auto) Abs Immat Gran (auto) Absolute Neuts (auto) Absolute Nucleated RBC Nucleated RBC % (auto) PT INR VBG pH VBG pCO2 VBG pO2 VBG HCO3 VBG O2 Saturation VBG Base Excess Anion Gap Estim Creat Clear Calc Estimated GFR 10 Random Glucose Cancelled 463 H* Lactic Acid 1.1 Calcium Cancelled 7.2 L D Magnesium Cancelled Total Bilirubin Direct Bilirubin AST ALT Alkaline Phosphatase Ammonia Troponin I High Sens Total Protein Albumin Amylase Lipase Beta-Hydroxybutyrate Blood Type Antibody Screen Crossmatch 05/02/24 05/02/24 05/02/24 20:14 20:14 20:14 MCV MCH MCHC RDW Plt Count MPV Immature Gran % (Auto) Neut % (Auto) Lymph % (Auto) [place] % (Auto) Eos % (Auto) Baso % (Auto) Lymph # (Auto) [place] # (Auto) Eos # (Auto) Baso # (Auto) Abs Immat Gran (auto) Absolute Neuts (auto) Absolute Nucleated RBC Nucleated RBC % (auto) PT INR VBG pH VBG pCO2 VBG pO2 VBG HCO3 VBG O2 Saturation VBG Base Excess Anion Gap Estim Creat Clear Calc Estimated GFR Random Glucose Lactic Acid Calcium Magnesium 2.7 H Total Bilirubin Cancelled 8.6 H Direct Bilirubin 6.8 H AST Cancelled 167 H ALT Cancelled Alkaline Phosphatase Ammonia Troponin I High Sens Total Protein Albumin Amylase Lipase Beta-Hydroxybutyrate Blood Type Antibody Screen Crossmatch 05/02/24 05/02/24 05/02/24 20:14 20:14 20:14 MCV MCH MCHC RDW Plt Count MPV Immature Gran % (Auto) Neut % (Auto) Lymph % (Auto) [place] % (Auto) Eos % (Auto) Baso % (Auto) Lymph # (Auto) [place] # (Auto) Eos # (Auto) Baso # (Auto) Abs Immat Gran (auto) Absolute Neuts (auto) Absolute Nucleated RBC Nucleated RBC % (auto) PT INR VBG pH VBG pCO2 VBG pO2 VBG HCO3 VBG O2 Saturation VBG Base Excess Anion Gap Estim Creat Clear Calc Estimated GFR Random Glucose Lactic Acid Calcium Magnesium Total Bilirubin Direct Bilirubin AST ALT 156 H Alkaline Phosphatase Cancelled 1600 H Ammonia 24 Troponin I High Sens 36.7 H D Total Protein Cancelled 6.4 L Albumin Cancelled Amylase Lipase Beta-Hydroxybutyrate Blood Type Antibody Screen Crossmatch 05/02/24 05/02/24 05/02/24 20:14 20:14 20:48 MCV MCH MCHC RDW Plt Count MPV Immature Gran % (Auto) Neut % (Auto) Lymph % (Auto) [place] % (Auto) Eos % (Auto) Baso % (Auto) Lymph # (Auto) [place] # (Auto) Eos # (Auto) Baso # (Auto) Abs Immat Gran (auto) Absolute Neuts (auto) Absolute Nucleated RBC Nucleated RBC % (auto) PT INR VBG pH VBG pCO2 VBG pO2 VBG HCO3 VBG O2 Saturation VBG Base Excess Anion Gap Estim Creat Clear Calc Estimated GFR Random Glucose Lactic Acid Calcium Magnesium Total Bilirubin Direct Bilirubin AST ALT Alkaline Phosphatase Ammonia Troponin I High Sens Total Protein Albumin 2.9 L Amylase 88 Lipase Cancelled 138 H Beta-Hydroxybutyrate 0.12 Blood Type A Positive Antibody Screen NEGATIVE Crossmatch See Detail 05/02/24 20:54 MCV MCH MCHC RDW Plt Count MPV Immature Gran % (Auto) Neut % (Auto) Lymph % (Auto) [place] % (Auto) Eos % (Auto) Baso % (Auto) Lymph # (Auto) [place] # (Auto) Eos # (Auto) Baso # (Auto) Abs Immat Gran (auto) Absolute Neuts (auto) Absolute Nucleated RBC Nucleated RBC % (auto) PT INR VBG pH 7.43 VBG pCO2 18 VBG pO2 216 VBG HCO3 12 L VBG O2 Saturation TNP VBG Base Excess -9.9 Anion Gap Estim Creat Clear Calc Estimated GFR Random Glucose Lactic Acid Calcium Magnesium Total Bilirubin Direct Bilirubin AST ALT Alkaline Phosphatase Ammonia Troponin I High Sens Total Protein Albumin Amylase Lipase Beta-Hydroxybutyrate Blood Type Antibody Screen Crossmatch Imaging Radiologist's Impressions: Impressions Abdomen/Pelvis CT 05/02/24 21:28 IMPRESSION: Heterogeneous collection in the gallbladder fossa measuring 5 x 7 x 8.5 cm. This is high attenuation with low-attenuation cystic areas. High attenuation raises question of possible hematoma. Given history of infection, infected hematoma should be considered. Wall thickening of the proximal small bowel in the left abdomen questionable for enteritis. Slightly distended fluid-filled small bowel suggestive of ileus. Constipation. Severe atherosclerotic disease. Bilateral lower lobe atelectasis/small pneumonia and small left pleural effusion. Slightly enlarged spleen. Findings will be communicated by the [place] workflow retail manager in training Maude guidelines were followed. Abdomen Ultrasound 05/02/24 22:47 IMPRESSION: Large hematoma in the gallbladder fossa better demonstrated on the CT scan performed one hour ago. Assessment and Plan (1) Acute blood loss anemia: Status: Acute (2) KWAME (acute kidney injury): Status: Acute (3) Jaundice: Status: Acute Plan Yao Rivera is a 58 y/o man with PMHx significant recent hospitalization due to acute cholecystitis/cholelithiasis/Mirizzi's syndrome with obstructive jaundice undergoing laparoscopy coverted to open cholecystectomy (April 20) with ELAINA draining complicated with coagulase-negative Staph bacteremia and marked encephalopathy secondary to acute renal failure requiring hemodialysis. Yao came back to hospital complaining of worsening abdominal pain, generalized pain and encephalopathy. Lab data and imaging today showed worsening LFTs consistent with an obstructive process, worsening renal failure with metabolic acidosis, uncontrolled type 2 diabetes mellitus and marked anemia secondary to gallbladder fossa hematoma. He recently decided to leave [facility] because he does not want to be on hemodialysis and is not interested in any interventions anymore including blood transfusion, invasive interventions and hemodialysis as well as DNR/DNI. Family (son and sister) understands and respects Yao's wishes. They understand Yao has a poor prognosis and do not want him to suffer. Despite being quite encephalopathic, Yao, was able to understand that he is critically ill and has multiple acute medical problems. He actually told me: I have been listening to and understanding everything you guys have been taking about . Family would like patient to go home soon after arrangements for home hospice care. I offered to admit Yao to the hospital for comfort measures only until arrangements for home hospice are completed. Interview was addressed in Latvian which is patient's family primary language. Quality Stroke Does the patient have a stroke diagnosis?: No VTE Prior VTE?: No VTE Risk Level:: Medical - moderate - high VTE Device Contraindication: Treatment Not Indicated VTE Drug Contraindication: Treatment Not Indicated
[2024-05-03] MEDS: Morphine Sulfate 2 MG/ML CARTRIDGE IVPUSH (01:41)
[2024-05-03] MEDS: Morphine Sulfate/NS 100 MG/100 ML PLAST..BAG IVCONT (02:17)
--- NOTE | 2024-05-03 07:20 | P.CONGS_ITS ---
History of Present Illness Consult details Consult date: 05/03/24 Requesting physician: Gregorio Galindo Narrative: 58-year-old male patient presenting to the emergency department with increased abdominal pain right upper quadrant. He is status post laparoscopic converted to open subtotal fenestrated cholecystectomy for acute cholecystitis with gallbladder abscess and large impacted gallstone. 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 Postoperatively a drain was left in place which drain mainly serous fluid. The drain was removed on 04/27/2024. He subsequently signed out AMA on 04/29/2024. He returns today with increased abdominal pain and was found on workup in the emergency department to have markedly elevated BC, LFTs and a drop in H&H. CT abdomen and pelvis reveals a collection in the gallbladder fossa suggestive of a hematoma with fluid around the liver. Was felt to be either hematoma or infected hematoma. Review of Systems 2 Review of Systems: Yes all other systems are reviewed and are negative Constitutional: Constitutional: Reports anorexia Cardiovascular: Cardiovascular: Reports dyspnea Respiratory: Respiratory: Reports dyspnea Gastrointestinal: Gastrointestinal: Reports abdominal pain and Reports nausea Integumentary/Breasts: Skin/Breast: Reports jaundice PMFSH Past Medical History Medical History Anemia Congestive heart failure Nephrotic syndrome Diastolic heart failure Anemia Pneumonia Diabetic nephropathy Anemia Chronic pain syndrome Diabetic polyneuropathy Vitamin D deficiency Depression HTN (hypertension) HLD (hyperlipidemia) T2DM (type 2 diabetes mellitus) Family History Family History Father Colon cancer Mother History of kidney problems T2DM (type 2 diabetes mellitus) Sister T2DM (type 2 diabetes mellitus) Surgical History Surgical History Status post biopsy of kidney Hx of colonoscopy Hx of rotator cuff surgery Social History Social History Household Members: Family Household Members Other:: 2 Housing: Apartment Do you presently have visiting nurse or other home services: Yes (1/wk) Alcohol intake: former Comment: allowed to walk in room Patient Tobacco Use Status: Never used Tobacco Smoked in Last 30 Days: No Second Hand Smoke Exposure: No Use of substances other than those prescribed or required for medical reasons: Yes Substance Use Type: Crack/Cocaine and Heroin Substance Use Frequency: Chronic Longstanding Last Used Substance: Unknown Advance Directives: Yes Advance Directives on File: Yes Advance Directives Date on File: 04/28/23 Do you have a plan to hurt others: No Plan service: No Current occupational status: disabled Current occupation: right handed Meds Allergies Allergy/AdvReac Type Severity Reaction Status Date / Time No Known Allergies Allergy Verified 05/02/24 20:03 [No Known Allergies*] Active Medications: Current Medications Docusate Sodium (Docusate Sodium 100 Mg Capsule) 100 mg PO BEDTIME BRENNEN Morphine Sulfate (Morphine Sulfate/Ns) 100 mg in 100 mls @ 0 mls/hr IVCONT .Q0M BRENNEN; Protocol Last Admin: 05/03/24 02:17 Dose: 1 mg/hr, 1 mls/hr Lorazepam (Lorazepam 0.5 Mg Tablet) 0.5 mg PO Q4H PRN PRN Reason: anxiety/restlessness Ondansetron HCl (Ondansetron Hcl 4 Mg/2 Ml Vial) 4 mg IVPUSH Q8H PRN PRN Reason: Nausea and Vomiting Sodium Chloride (0.9 % Sodium Chloride Flush 3 Ml Syringe) 3 ml IVFLUSH QSHIFT [facility] Home Medications ?Medication ?Instructions ?Recorded ?Confirmed ?Last Taken ?Type insulin lispro 100 unit/mL 14 unit subcut TIDAC 12/22/20 05/03/24 04/17/24 History subcutaneous pen (Humalog KwikPen (U-100) Insulin) diphenhydramine HCl 25 mg capsule 25 mg PO BEDTIME 04/18/23 05/03/24 04/17/24 History (Benadryl) tamsulosin 0.4 mg capsule 0.4 mg PO DAILY 04/18/23 05/03/24 04/17/24 History ziprasidone HCl 60 mg capsule 60 mg PO BID 04/18/23 05/03/24 04/17/24 History (Geodon) atorvastatin 80 mg tablet 80 mg PO DAILY 05/23/23 05/03/24 04/17/24 History benztropine 0.5 mg tablet 0.5 mg DAILY 10/14/23 05/03/24 04/17/24 History trazodone 50 mg tablet 50 - 100 mg PO BEDTIME PRN Insomnia 10/14/23 05/03/24 04/17/24 History gabapentin 100 mg capsule 100 mg PO BID 11/10/23 05/03/24 04/17/24 History dulaglutide 3 mg/0.5 mL 3 mg subcut WE@0900 04/18/24 05/03/24 04/11/24 History subcutaneous pen injector (Trulicity) insulin glargine 100 unit/mL (3 20 unit subcut DAILY 05/03/24 05/03/24 Unknown History mL) subcutaneous pen (Lantus Solostar U-100 Insulin) Physical Exam 2 Vital Signs: Vital Signs: Last Vital Signs Temp 97.8 F 05/03/24 02:16 Pulse 77 05/03/24 02:17 Resp 16 05/03/24 02:17 BP 118/55 L 05/03/24 02:17 Pulse Ox 99 05/03/24 02:17 O2 Del Method Room Air, Nasal C annula 05/02/24 23:58 O2 Flow Rate 1 05/02/24 23:58 BMI result Body Mass Index 22.7 Const: General: anxious Nutritional Appearance: well nourished O rientation/consciousness: patient oriented x3 Eyes: Sclerae: scleral abnormal (Scleral icterus) Resp: Effort & Inspection: normal respiratory effort GI: Other: Tender right upper quadrant, right upper quadrant incision with intact bubba. Palpation (GI): Tenderness to palpation present (GI) Percussion: Yes normal to percussion Skin: Other: Jaundice, warm and dry Neuro: General: patient oriented x3 Extrem: Other: Brisk capillary refill Results Labs 05/02/24 20:14 05/02/24 20:14 Labs: Abnormal lab results 05/02/24 05/02/24 05/02/24 Range/Units 20:14 20:48 20:54 WBC 17.0 H (4.8-10.8) X10*3/uL RBC 1.94 L D (4.60-5.80) X10*6/uL Hgb 5.8 L* D (14.0-18.0) g/dl Hct 16.9 L* D (42.0-52.0) % RDW 17.7 H (11.0-16.0) % Immature Gran % (Auto) 0.8 H (0.0-0.4) % Neut % (Auto) 84.1 H (45-73) % Lymph % (Auto) 7.6 L (20-40) % Abs Immat Gran (auto) 0.14 H (0.00-0.03) X10*3/uL Absolute Neuts (auto) 14.3 H (2.0-8.3) x10*3/uL PT 15.2 H (11.1-13.3) SEC INR 1.3 H (0.9-1.1) VBG HCO3 12 L (22-26) mmol/L Sodium 130 L (135-145) mmol/L Carbon Dioxide 13 L (22-29) mmol/L BUN 71 H (9-16) mg/dL Creatinine 6.14 H* (0.5-1.4) mg/dL Random Glucose 463 H* (60-115) mg/dL Calcium 7.2 L D (8.4-10.2) mg/dL Magnesium 2.7 H (1.6-2.6) mg/dL Total Bilirubin 8.6 H (0.0-1.0) mg/dL Direct Bilirubin 6.8 H (0.0-0.5) mg/dL AST 167 H (5-37) U/L ALT 156 H (0-40) U/L Alkaline Phosphatase 1600 H (39-117) U/L Troponin I High Sens 36.7 H D (<3.5-35.0) ng/L Total Protein 6.4 L (6.5-8.0) g/dL Albumin 2.9 L (3.5-5.0) g/dL Lipase 138 H (8-78) U/L Crossmatch See Detail Short CBC 05/02/24 Range/Units 20:14 WBC 17.0 H (4.8-10.8) X10*3/uL Hgb 5.8 L* D (14.0-18.0) g/dl Hct 16.9 L* D (42.0-52.0) % Plt Count 203 (160-400) X10*3/uL BMP 05/02/24 05/02/24 05/02/24 20:14 20:14 20:14 Sodium Cancelled 130 L Potassium Cancelled 4.0 Chloride Cancelled Carbon Dioxide BUN Creatinine Calcium 05/02/24 05/02/24 05/02/24 20:14 20:14 20:14 Sodium Potassium Chloride 101 Carbon Dioxide Cancelled 13 L BUN Cancelled 71 H Creatinine Cancelled Calcium 05/02/24 05/02/24 20:14 20:14 Sodium Potassium Chloride Carbon Dioxide BUN Creatinine 6.14 H* Calcium Cancelled 7.2 L D Liver Function 05/02/24 05/02/24 05/02/24 Range/Units 20:14 20:14 20:14 Total Bilirubin Cancelled 8.6 H Direct Bilirubin 6.8 H (0.0-0.5) mg/dL AST Cancelled 167 H ALT Cancelled Alkaline Phosphatase Albumin 05/02/24 05/02/24 05/02/24 Range/Units 20:14 20:14 20:14 Total Bilirubin Direct Bilirubin (0.0-0.5) mg/dL AST ALT 156 H Alkaline Phosphatase Cancelled 1600 H Albumin Cancelled 2.9 L All other labs normal. Imaging Abdomen CT scan report/results: image reviewed CT scan - pelvis: image reviewed Abdominal ultrasound report/results: image reviewed Assessment and Plan (1) Acute blood loss anemia: Status: Acute (2) Jaundice: Status: Acute (3) Abdominal pain: Qualifiers: Abdominal location: right upper quadrant Qualified Code(s): R10.11 - Right upper quadrant pain Status: Acute Plan 58-year-old male patient with multiple medical problems previously diagnosed with a Mirizzi syndrome, status post open subtotal fenestrated cholecystectomy due to marked inflammation and abscess surrounding the gallbladder. He now returns with increased abdominal pain an apparent hematoma/abscess in the gallbladder fossa. Patient received 1 unit PRBCs last evening for low H&H. He may benefit from IR embolization/drainage. Discussed the findings with the patient and family and they expressed understanding and agreement the plan. Procedures Date of Service Date of Service: 05/03/24
--- NOTE | 2024-05-03 07:25 | PHA.MEDREC ---
Pharmacy Consult ? Medication Reconciliation Pharmacy has completed the medication reconciliation. Patient recently left AMA on 04/29/24. Utilized discharge summary to confirm meds. Along with this, Dr. Pleitez wrote in plan of treatment for the patient to take lantus 20 units only, so adjusted the lantus from 35 units to 20 units in home med list.
--- NOTE | 2024-05-03 11:12 | MHC.CM.PN ---
WITH HEP FROM [facility] [place] [facility]: PATIENT HAS BEEN LIVING WITH HIS SISTER, COLTON, FOR THE PAST 3 MONTHS. HE WOULD LIKE TO GO TO HER HOME ON HOSP[facility] SERVICES WITH [facility]. REFERRAL NOW PLACED AND CONTACT WITH AGENCY MADE BY PHONE. FAMILY IS HOPING FOR HOME TOMORROW AND AWARE THAT THE PROCESS MAY ALLOW FOR THIS, BUT ALSO MAY NEED OVER THE WEEKEND TO ALLOW FOR START OF SERVICES. IMM EXPLAINED AND SIGNED. IMM 05/03 COPY PLACED IN CHART.
--- NOTE | 2024-05-03 11:24 | P.EN_ITS ---
Event Note Date of Service: 05/03/24 Event Note: Day hospitalist update S: This history was taken in Bulgarian from the patient. Comfortable on morphine IV drip 2 mg/h Wants to go home with hospice services IVETTE O: Gen: in no acute distress, ill-appearing, jaundiced Lungs: normal respiratory effort Abd: distended Ext: leg edema Neuro: alert and oriented, no weakness Psych: appropriate affect A/P: d1 58yo M with recent hospitalization for acute cholecystitis/Mirizzi syndrome, s/p lap->open cholestectomy 04/20 complicated by KWAME requiring HD. Signed out AMA 04/29 as he did not want any more invasive intervensions including blood transfusions and HD. Now presenting with worsening pain and confusion. Found t o have worsening obstructive jaundice, KWAME/metabolic acidosis, and severe anemia due to gallbladder fossa hematoma that is likely infected. Admitted for comfort care while arranging home hospice services - morphine IV gtt, prn PO lorazepam + IV ondansetron - Case Management contacted, will set up home hospice services - discussed with pt and his sister at bedside In my clinical judgment, the patient requires continued hospitalization for the following reasons: comfort care while arranging for home hospice services Time Spent With Patient Time: Total time managing care of this patient today ____ minutes.
[2024-05-04] VITALS (7 sets, daily range): RESP 10–14; O2SAT 95
[2024-05-04] MEDS: Morphine Sulfate/NS 100 MG/100 ML PLAST..BAG IVCONT (08:50)
--- NOTE | 2024-05-04 08:55 | PC.NURSE ---
Bag change for Morphine SPINNER CONTINUOUS pump, witnessed with cotton bag sewerRYLAN Monteiro. 20.95ml wasted.
--- NOTE | 2024-05-04 09:58 | PM.DS ---
DS: Providers Provider Date of Service: 05/04/24 Date of admission: 05/03/24 01:33 Date of discharge: 05/04/24 Primary care physician: Allison Montilla MD Consults: 05/03/24 01:27 Consult to Case Management Routine Comment: Consult to Power Shear Operator Routine Comment: Consult to Hospice Routine Comment: DS: Diagnosis Discharge Diagnosis (1) Acute blood loss anemia: Status: Acute (2) KWAME (acute kidney injury): Status: Acute (3) Obstructive jaundice: Status: Acute (4) Uremic encephalopathy: Status: Acute (5) Hematoma of gallbladder: Status: Acute DS: Summary Hospital Course Hospital Course: From the history and physical by the admitting hospitalist, Gregorio Galindo, 05/03/24: Yao Rivera is a 58 years old man with past medical history significant for renal failure/nephrotic syndrome recently started on hemodialysis, depression, CHF, type 2 diabetes mellitus., hypertension, hyperlipidemia presents to the emergency department complaining of abdominal pain. Patient was accompanied by multiple family members. Patient's sister stated that pain has not been doing well. He has been very weak and complaining of generalized pain and abdominal pain. He has not been eating well. Patient was recent hospitalized acute cholecystitis/cholelithiasis/Mirizzi's syndrome with obstructive jaundice undergoing laparoscopy coverted to open cholecystectomy (April 20) with ELAINA draining complicated with coagulase-negative Staph bacteremia. This surgery was complicated by acute inflamed gallbladder with adhesions and infection necessitating a partial CCY, removal of large stone. The patient decided to leave AMA 4 days ago. Sister said that Yao told them (his family) that he was discharged from the hospital officially and not that he left AMA; and that she basically forced him to come to the hospital today for evaluation. He had only 1 hemodialysis session. In the ED, he was found to have stable vital signs. His blood workup was remarkable for leukocytosis and marked anemia 5.8 and hematocrit of 16.9. Platelets are normal. His INR is 1.3. Renal function is declining. Creatinine is now 6.14 (prior 4.74). BUN 71 (prior 41), hyperglycemia 463, CO2 13. LFTs are markedly worsening: bilirubin is 8.6 (before 3.1), bilirubin 8.6, AST 167, ALT 156, alk-phos 1600. Troponin is 36.7, albumin 2.9 and lipase 138. Beta hydroxybutyrate is normal. PH is 7.43 and bicarb 12. Abdominal pelvis CT scan showed possible infected hematoma in the gallbladder fossa, possible ileus, constipation and possible enteritis. It also showed bilateral lower lobe atelectasis/small pneumonia and pleural effusion and enlarged spleen. Abdominal ultrasound showed large hematoma in the gallbladder fossa... ...He recently decided to leave [place] because he does not want to be on hemodialysis and is not interested in any interventions anymore including blood transfusion, invasive interventions and hemodialysis as well as DNR/DNI. Family (son and sister) understands and respects Yao's wishes. They understand Yao has a poor prognosis and do not want him to suffer. Despite being quite encephalopathic, Yao, was able to understand that he is critically ill and has multiple acute medical problems. He actually told me: I have been listening to and understanding everything you guys have been taking about . Family would like patient to go home soon after arrangements for home hospice care. I offered to admit Yao to the hospital for comfort measures only until arrangements for home hospice are completed. Interview was addressed in Micronesian which is patient's family primary language. ED tx: Zosyn 3.375 g, Zofran 4 mg IV, morphine 2 mg IV, NS 500 mL 58yo M with recent hospitalization for acute cholecystitis/Mirizzi syndrome, s/p lap->open cholestectomy 04/20 complicated by KWAME requiring HD. Signed out AMA 04/29 as he did not want any more invasive intervensions including blood transfusions and HD. Now presenting with worsening pain and confusion. Found to have worsening obstructive jaundice, KWAME/metabolic acidosis with uremic encephalopathy, and severe anemia due to gallbladder fossa hematoma that is likely infected. Admitted for comfort care while arranging home hospice services. Treated with IV morphine drip with family at bedside. Case Management consulted and arranged for home hospice services. He was discharged home withcomfort care medications [morphine, lorazepam, scopolamine, and haloperidol]. Time Attestation Discharge Coordination Time (in mins): 40 Quality: Safe Use of Opioids Does Pt have an Active Cancer Diagnosis on the Problem List?: No Quality: Stroke Does the patient have a stroke diagnosis?: No Physical Exam Vital Signs: Vital Signs: Last Vital Signs Temp 99.2 F 05/03/24 09:32 Pulse 82 05/03/24 09:32 Resp 14 05/04/24 08:50 BP 132/62 05/03/24 09:32 Pulse Ox 95 05/04/24 02:00 O2 Del Method Nasal Cannula 05/04/24 02:00 O2 Flow Rate 2 05/04/24 02:00 BMI result Body Mass Index 22.7 Gen: in no acute distress, ill-appearing, jaundiced Lungs: normal respiratory effort Abd: distended Ext: leg edema Neuro: somonolent DS: Data Data Completed and Pending Completed studies during hospitalization [Text1]: Laboratory Results WBC 17.0 X10*3/uL (4.8-10.8) H 05/02/24 20:14 RBC 1.94 X10*6/uL (4.60-5.80) L D 05/02/24 20:14 Hgb 5.8 g/dl (14.0-18.0) L* D 05/02/24 20:14 Hct 16.9 % (42.0-52.0) L* D 05/02/24 20:14 MCV 87.1 fL (80.0-98.0) 05/02/24 20:14 MCH 29.9 pg (27.0-33.0) 05/02/24 20:14 MCHC 34.3 g/dl (31.0-36.0) 05/02/24 20:14 RDW 17.7 % (11.0-16.0) H 05/02/24 20:14 Plt Count 203 X10*3/uL (160-400) 05/02/24 20:14 MPV 10.4 fL (9.4-12.4) 05/02/24 20:14 Immature Gran % (Auto) 0.8 % (0.0-0.4) H 05/02/24 20:14 Neut % (Auto) 84.1 % (45-73) H 05/02/24 20:14 Lymph % (Auto) 7.6 % (20-40) L 05/02/24 20:14 [place] % (Auto) 6.8 % (2-11) 05/02/24 20:14 Eos % (Auto) 0.5 % (0-4) 05/02/24 20:14 Baso % (Auto) 0.2 % (0-2) 05/02/24 20:14 Lymph # (Auto) 1.3 X10*3/uL (1.2-4.9) 05/02/24 20:14 [place] # (Auto) 1.2 X10*3/uL (0.1-1.2) 05/02/24 20:14 Eos # (Auto) 0.1 X10*3/uL (0.0-0.4) 05/02/24 20:14 Baso # (Auto) 0.0 X10*3/uL (0.0-0.2) 05/02/24 20:14 Abs Immat Gran (auto) 0.14 X10*3/uL (0.00-0.03) H 05/02/24 20:14 Absolute Neuts (auto) 14.3 x10*3/uL (2.0-8.3) H 05/02/24 20:14 Absolute Nucleated RBC 0.000 X10*3/uL (0.0-0.012) 05/02/24 20:14 Nucleated RBC % (auto) 0.0 /100WBC (0.0-0.2) 05/02/24 20:14 PT 15.2 SEC (11.1-13.3) H 05/02/24 20:14 INR 1.3 (0.9-1.1) H 05/02/24 20:14 VBG pH 7.43 (7.32-7.43) 05/02/24 20:54 VBG pCO2 18 mmHg 05/02/24 20:54 VBG pO2 216 mmHg 05/02/24 20:54 VBG HCO3 12 mmol/L (22-26) L 05/02/24 20:54 VBG O2 Saturation TNP 05/02/24 20:54 VBG Base Excess -9.9 mmol/L 05/02/24 20:54 Sodium 130 mmol/L (135-145) L 05/02/24 20:14 Sodium Cancelled 05/02/24 20:14 Potassium 4.0 mmol/L (3.3-5.1) 05/02/24 20:14 Potassium Cancelled 05/02/24 20:14 Chloride 101 mmol/L (96-108) 05/02/24 20:14 Chloride Cancelled 05/02/24 20:14 Carbon Dioxide 13 mmol/L (22-29) L 05/02/24 20:14 Carbon Dioxide Cancelled 05/02/24 20:14 Anion Gap 20 (12-20) 05/02/24 20:14 Anion Gap Cancelled 05/02/24 20:14 BUN 71 mg/dL (9-16) H 05/02/24 20:14 BUN Cancelled 05/02/24 20:14 Creatinine 6.14 mg/dL (0.5-1.4) H* 05/02/24 20:14 Creatinine Cancelled 05/02/24 20:14 Estim Creat Clear Calc 10.8 05/02/24 20:14 Estim Creat Clear Calc Cancelled 05/02/24 20:14 Estimated GFR 10 05/02/24 20:14 Estimated GFR Cancelled 05/02/24 20:14 Random Glucose 463 mg/dL (60-115) H* 05/02/24 20:14 Random Glucose Cancelled 05/02/24 20:14 Lactic Acid 1.1 mmol/L (0.5-2.0) 05/02/24 20:14 Calcium 7.2 mg/dL (8.4-10.2) L D 05/02/24 20:14 Calcium Cancelled 05/02/24 20:14 Magnesium 2.7 mg/dL (1.6-2.6) H 05/02/24 20:14 Magnesium Cancelled 05/02/24 20:14 Total Bilirubin 8.6 mg/dL (0.0-1.0) H 05/02/24 20:14 Total Bilirubin Cancelled 05/02/24 20:14 Direct Bilirubin 6.8 mg/dL (0.0-0.5) H 05/02/24 20:14 AST 167 U/L (5-37) H 05/02/24 20:14 AST Cancelled 05/02/24 20:14 ALT 156 U/L (0-40) H 05/02/24 20:14 ALT Cancelled 05/02/24 20:14 Alkaline Phosphatase 1600 U/L (39-117) H 05/02/24 20:14 Alkaline Phosphatase Cancelled 05/02/24 20:14 Ammonia 24 umol/L (13-55) 05/02/24 20:14 Troponin I High Sens 36.7 ng/L (<3.5-35.0) H D 05/02/24 20:14 Total Protein 6.4 g/dL (6.5-8.0) L 05/02/24 20:14 Total Protein Cancelled 05/02/24 20:14 Albumin 2.9 g/dL (3.5-5.0) L 05/02/24 20:14 Albumin Cancelled 05/02/24 20:14 Amylase 88 U/L (28-100) 05/02/24 20:14 Lipase 138 U/L (8-78) H 05/02/24 20:14 Lipase Cancelled 05/02/24 20:14 Beta-Hydroxybutyrate 0.12 mmol/L (0.02-0.27) 05/02/24 20:48 Blood Type A Positive 05/02/24 20:48 Antibody Screen NEGATIVE 05/02/24 20:48 Crossmatch See Detail 05/02/24 20:48 Impressions Abdomen/Pelvis CT 05/02/24 21:28 IMPRESSION: Heterogeneous collection in the gallbladder fossa measuring 5 x 7 x 8.5 cm. This is high attenuation with low-attenuation cystic areas. High attenuation raises question of possible hematoma. Given history of infection, infected hematoma should be considered. Wall thickening of the proximal small bowel in the left abdomen questionable for enteritis. Slightly distended fluid-filled small bowel suggestive of ileus. Constipation. Severe atherosclerotic disease. Bilateral lower lobe atelectasis/small pneumonia and small left pleural effusion. Slightly enlarged spleen. Findings will be communicated by the [facility] stock puller Maude guidelines were followed. Abdomen Ultrasound 05/02/24 22:47 IMPRESSION: Large hematoma in the gallbladder fossa better demonstrated on the CT scan performed one hour ago. Discharge Plan Discharge Anticipated Discharge Date/Time: 05/04/24 12:30 Patient Disposition: Hospice - Home Discharge Diagnosis: acute kidney injury, uremic encephalopathy, obstructive jaundice, anemia Referrals: Allison Etienne MD [Primary Care Provider] - 1 Week Discharge Medications: New morphine concentrate 100 mg/5 mL (20 mg/mL) solution 5 mg PO Q3H PRN (Reason: pain/comfort) 15 Days Qty: 30 0RF Rx Instructions: Partial Fill upon patient request. scopolamine base 1 mg over 3 days patch 3 day 1 patch transdermal Q72H 12 Days Qty: 4 0RF Rx Instructions: 1 patch behind ear Q72H for secretions lorazepam [Lorazepam Intensol] 2 mg/mL concentrate 0.5 mg PO Q4H PRN (Reason: anxiety/restlessness) Qty: 30 0RF haloperidol lactate 2 mg/mL Concentrate 1 mg PO Q6H PRN (Reason: Agitation/restlessness) 7 Days Qty: 15 1RF Discontinued ferrous sulfate 325 mg (65 mg iron) tablet 325 mg PO DAILY Qty: 90 1RF Trulicity 3 mg/0.5 mL pen injector 3 mg subcut WE@0900 Rx Instructions: Every Tuesday tamsulosin 0.4 mg capsule 0.4 mg PO DAILY diphenhydramine HCl [Benadryl] 25 mg capsule 25 mg PO BEDTIME ziprasidone HCl [Geodon] 60 mg capsule 60 mg PO BID atorvastatin 80 mg tablet 80 mg PO DAILY benztropine 0.5 mg tablet 0.5 mg DAILY trazodone 50 mg tablet 50 - 100 mg PO BEDTIME PRN (Reason: Insomnia) gabapentin 100 mg capsule 100 mg PO BID insulin glargine [Lantus Solostar U-100 Insulin] 100 unit/mL (3 mL) insulin pen 20 unit subcut DAILY insulin lispro [Humalog KwikPen Insulin] 100 unit/mL insulin pen 14 unit subcut TIDAC amlodipine 10 mg tablet 10 mg PO DAILY Qty: 30 5RF Protocol: Hold for SBP< HOLD for SBP < : 90 bumetanide 2 mg tablet 2 mg PO BID Qty: 60 5RF carvedilol 6.25 mg tablet 6.25 mg PO BID Qty: 60 5RF hydralazine 50 mg tablet 150 mg PO BID Qty: 180 5RF Protocol: Hold for SBP< HOLD for SBP < : 90 Discharge Orders: Discharge Order (Routine); Ordered 05/04/24 Ordered By: Sherron Gomez Diet: Advance to usual diet Activity on Discharge: As tolerated Stand Alone Forms: Patient Portal Discharge page Print Language: Micronesian Care Plan Goals: palliation of pain and anxiety Health Concerns: acute kidney injury, uremic encephalopathy, obstructive jaundice, anemia Plan of Treatment: discharge home with hospice services morphine for pain/breathing difficulty lorazepam for anxiety haloperidol for agitation scopolamine for secretions Assessment: See Discharge Summary.
--- NOTE | 2024-05-04 10:58 | MHC.CM.PN ---
Addendum entered by Mirian Nugent 05/04/24 11:21: HOSPICE MEDS FILLED AT [facility] AND ON UNIT TO BE SENT HOME WITH PT Addendum entered by Mirian Nugent 05/04/24 11:20: [facility] AUTH OBTAINED FROM MARIEL[facility] AT [facility]. AUTH NUMBER [id number] Original Note: PT WILL DC HOME TODAY WITH [facility] BLS TRANSPORT BOOKED WITH [facility] FOR 1400 HOURS
[2024-05-04] MEDS: LORazepam 0.5 MG TABLET PO (12:03)
[2024-05-04] MEDS: diphenhydrAMINE HCL 50 MG/ML VIAL 25 MG IVPUSH (12:03)
--- NOTE | 2024-05-04 13:42 | P.CDIM_ITS ---
PROVIDER RESPONSE TEXT: To clarify, the appropriate diagnosis supported by the clinical indicators: Other (explain): uremic QUERY TEXT: PHYSICIAN'S DOCUMENTATION REQUEST Date of Query: 05/03/2024 01:59 PM EDT Patient Name: Yao Rivera Admit Date: 05/03/2024 Dear Sherron Gomez, A review of the medical record indicates additional documentation may be needed. Please review below and update the documentation accordingly. Clinical Indicators: Per H&P 05/03/24: Lethargic, easy to arouse, generalized pain and encephalopathy Per Event Note 05/03/24: presenting with pain and confusion Based on the above, please further specify, in the Progress Notes, the known or suspected type of the documented encephalopathy: Metabolic Septic Toxic Toxic metabolic Hypertensive Anoxic Alcoholic Hepatic (reported as hepatic failure and needs further specificity as to acute, subacute, or chronic) Due to a specified condition (such as UTI, hyponatremia, CVA, etc.) Other (explain) Clinically unable to determine (explain) Thank you, Mami Colmenares RN Use of terms such as suspected, likely, concern for, or probable (associated with a specific diagnosi s that is being evaluated, monitored, or treated as if it exists) are acceptable and can be coded in the inpatient se tting, when documented at the time of discharge. Please use your independent medical judgment in providing your response. THIS QUERY IS PART OF THE PERMANENT MEDICAL RECORD
== END 2024-05-04 13:47 | disposition hospice, home (50) | DRG 919 ==
LOC: HO.ED 23:31 → HO.EDOVER 05-03 01:34 → HO.S3 05-03 08:24
PROVIDERS: Emergency Medicine; Internal Medicine; Registered Nurse Emergency; Admitting Provider Internal Medicine; Emergency Provider Student in an Organized Health Care Education/Training Program; PCP Internal Medicine; Visit Provider Family Medicine
DX: K91.870 Postprocedural hematoma of a digestive system organ or structure following a digestive system procedure (principal); J18.9 Pneumonia, unspecified organism; K83.1 Obstruction of bile duct; D62 Acute posthemorrhagic anemia; G93.49 Other encephalopathy; J91.8 Pleural effusion in other conditions classified elsewhere; J98.11 Atelectasis; N17.9 Acute kidney failure, unspecified; K56.7 Ileus, unspecified; K52.9 Noninfective gastroenteritis and colitis, unspecified; F32.A Depression, unspecified; Z51.5 Encounter for palliative care; Z66 Do not resuscitate; G89.4 Chronic pain syndrome; E11.42 Type 2 diabetes mellitus with diabetic polyneuropathy; E78.5 Hyperlipidemia, unspecified; Z79.899 Other long term (current) drug therapy
CPT/HCPCS: 36415; 74176; 76705; 80053; 82010; 82140; 82150; 82248; 82803; 83605; 83690; 83735; 84484; 85025; 85610; 86850; 86900; 86901; 86923; 87040; 87076; 87205; 93005; 99285; C1758; J1200; J2270; J2405; J2543; P9016

== ENCOUNTER → 2024-05-02 20:05 | Outpatient (BNV) | payer OTHER, SELFPAY | PROVIDERS: Admitting Provider Internal Medicine; Emergency Provider Student in an Organized Health Care Education/Training Program; PCP Internal Medicine; Visit Provider Internal Medicine | DX: R94.31 Abnormal electrocardiogram [ECG] [EKG] (principal) | CPT/HCPCS: 93010 ==

== ENCOUNTER → 2024-05-03 01:33 | Outpatient (BNV) | payer OTHER, SELFPAY | PROVIDERS: Admitting Provider Internal Medicine; Emergency Provider Student in an Organized Health Care Education/Training Program; PCP Internal Medicine; Visit Provider Surgery | DX: D62 Acute posthemorrhagic anemia (principal); R17 Unspecified jaundice; R10.11 Right upper quadrant pain | CPT/HCPCS: 99222 ==

== ENCOUNTER → 2024-05-03 01:33 | Outpatient (BNV) | payer OTHER, SELFPAY | PROVIDERS: Admitting Provider Internal Medicine; Emergency Provider Student in an Organized Health Care Education/Training Program; PCP Internal Medicine; Visit Provider Internal Medicine | DX: D62 Acute posthemorrhagic anemia (principal); N17.9 Acute kidney failure, unspecified; K83.1 Obstruction of bile duct; G93.49 Other encephalopathy; N19 Unspecified kidney failure; S36.12 Injury of gallbladder | CPT/HCPCS: 99223; 99239; 99499 ==